=== PATIENT | male | born 1955 | race Caucasian/White ===

== ENCOUNTER 2016-09-17 07:21 | Emergency (ER) | payer MEDICARE, MEDICAID ==
--- NOTE | 2016-09-17 07:35 | ER Document Report ---
ED Respiratory Problem - General Mode of Arrival: Ambulatory Information source: Patient TRAVEL OUTSIDE OF THE [place] IN LAST 30 DAYS: No - HPI Patient complains to provider of: Cough Onset: Just prior to arrival Duration: Worse/persistent Quality of pain: No pain Severity: None Short of Breath: Mild Cough: Productive Associated symptoms: None - General Stated Complaint: SHORTNESS OF BREATH Notes: Patient is a 60 year old male that presents to the emergency department today with complaints of shortness of breath. Patient states he feels much better after the breathing treatment he received in [facility] and he is ready to go home. Patient states he intermittently has a cough and fever. (YANET GRANDA) - Related Data Allergies/Adverse Reactions: No Known Allergies Allergy (Verified 06/25/16 01:07) Past Medical History - General Information source: Patient, [facility] Records - Social History Smoking Status: Current Every Day Smoker Cigarette use (# per day): Yes Frequency of alcohol use: None Drug Abuse: None Lives with: Family Family History: Reviewed & Not Pertinent, Arthritis, CAD, COPD, Other - Past Medical History Cardiac Medical History: Reports: Hx Coronary Artery Disease, Hx Heart Attack - [place] occured in 2002. Takes ASA now, used to be on hypertensive medications, Hx Hypercholesterolemia, Hx Hypertension Pulmonary Medical History: Reports: Hx Asthma, Hx Bronchitis, Hx COPD, Hx Pneumonia Musculoskeltal Medical History: Reports Hx Arthritis, Reports Hx Musculoskeletal Deformity, Reports Hx Musculoskeletal Trauma Psychiatric Medical History: Reports: Hx Depression Traumatic Medical History: Reports: Hx Fractures - Left rib fractures with pneumothorax requiring chest tube on 05/23/2016 Past Surgical History: Reports: Hx Cardiac Catheterization - Immunizations Immunizations up to date: Yes Hx Diphtheria, Pertussis, Tetanus Vaccination: Yes Hx Pneumococcal Vaccination: 02/22/13 Review of Systems - Review of Systems Constitutional: See HPI, Fever EENT: No symptoms reported Cardiovascular: denies: Chest pain Respiratory: See HPI, Cough, Short of breath Gastrointestinal: No symptoms reported Genitourinary: No symptoms reported Male Genitourinary: No symptoms reported Musculoskeletal: No symptoms reported Skin: No symptoms reported Hematologic/Lymphatic: No symptoms reported Neurological/Psychological: No symptoms reported -: Yes All other systems reviewed and negative Physical Exam - General General appearance: Appears well, Alert In distress: None - HEENT Head: Normocephalic, Atraumatic Eyes: Normal - Respiratory Respiratory status: No respiratory distress, Other - No conversational dyspnea Breath sounds: Wheezing - expiratory - Cardiovascular Rhythm: Regular Heart sounds: Normal auscultation - Extremities General upper extremity: Normal inspection, Nontender. No: Edema General lower extremity: Nontender, Edema - Neurological Neuro grossly intact: Yes Cognition: Normal Orientation: AAOx4 - Psychological Associated symptoms: Normal affect, Normal mood - Skin Skin Temperature: Warm Skin Moisture: Dry Skin Color: Normal Course - Re-evaluation Re-evalutation: 09/17/16 07:39 I personally performed the services described in the documentation, reviewed and edited the documentation which was dictated to my scribe in my presence, and it accurately records my words and actions. presents emergency from chief complaint increased cough wheezing patient has a long-standing history of COPD and is a tobacco abuser. He is not hypoxic on arrival we gave him a breathing treatment when he was trying to leave prior to being evaluated was able to convince him to stay and allow me to do a full medical assessment. His lungs are occasional expiratory wheeze is in no respiratory distress afebrile not hypoxic. No clinical concerns for NV PE or dissection. When ahead and wrote him a prescription for prednisone. Counseled him to stop smoking that's been a long-term habit. He is to follow-up with his primary care physician in 2-3 days and specifically discussed reasons for ED return sooner 09/17/16 07:40 (ENRIQUE GRAY) Scribe Documentation - Scribe Written by Fred:: Fred Mariano, [id number] 09/17/2016 acting as scribe for :: Dwayne
--- NOTE | 2016-09-28 10:41 | ER Document Report ---
Doctor's Note Notes: 09/28/16 10:41 diagnosis acute copd exacerbation
== END 2016-09-17 07:39 | disposition home or self-care (01) ==
LOC: ER 07:21
DX: J44.1 Chronic obstructive pulmonary disease with (acute) exacerbation (principal); F17.210 Nicotine dependence, cigarettes, uncomplicated; I25.10 Atherosclerotic heart disease of native coronary artery without angina pectoris; I25.2 Old myocardial infarction; Z79.82 Long term (current) use of aspirin
CPT/HCPCS: 99284

== ENCOUNTER 2016-09-20 04:16 | Emergency (ER) | payer MEDICARE, MEDICAID ==
[2016-09-20 04:38] VITALS: BP 153/80
== END 2016-09-20 05:30 | disposition left against medical advice (07) ==
LOC: ER 04:16
DX: Z53.9 Procedure and treatment not carried out, unspecified reason (principal); R06.02 Shortness of breath
CPT/HCPCS: 36415; 80053; 82550; 82553; 84484; 85025; 85610; 94640; 99283; 99284

== ENCOUNTER 2016-09-20 05:03 | Emergency (ER) | payer MEDICARE, MEDICAID ==
[2016-09-20 07:05] VITALS: BP 145/74
[2016-09-20] MEDS ORDERED: IPRATROPIUM/ALBUTEROL 0.5-2.5 MG/3 ML AMPUL NEB ONE (07:21)
[2016-09-20 07:58] LABS: ALANINE AMINOTRANSFERASE 51 U/L (21-72); ALBUMIN 4.4 g/dL (3.5-5.0); ALKALINE PHOSPHATASE 104 U/L (38-126); ANION GAP 13 (5-19); ASPARTATE AMINO TRANSFERASE 68 U/L (17-59); BILIRUBIN,TOTAL 0.5 mg/dL (0.2-1.3); BLOOD UREA NITROGEN 6 mg/dL (7-20); CALCIUM 8.3 mg/dL (8.4-10.2); CARBON DIOXIDE 28 mmol/L (22-30); CHLORIDE 90 mmol/L (98-107); CREATINE KINASE 312 U/L (55-170); CREATININE RESULT 0.48 mg/dL (0.52-1.25); GLUCOSE 79 mg/dL (75-110); POTASSIUM 4.5 mmol/L (3.6-5.0); SODIUM 130.7 mmol/L (137-145); TOTAL PROTEIN 7.1 g/dL (6.3-8.2)
[2016-09-20 08:00] LABS: ABSOLUTE LYMPHOCYTES (AUTO) 0.4 10^3/uL (0.5-4.7); ABSOLUTE MONOCYTES (AUTO) 0.2 10^3/uL (0.1-1.4); ABSOLUTE NEUT (AUTO) 7.2 10^3/uL (1.7-8.2); BASOPHILS % (AUTO) 0.6 % (0-2); EOSINOPHILS % (AUTO) 0.1 % (0-6); HEMATOCRIT 39.5 % (37.9-51.0); HEMOGLOBIN 13.5 g/dL (13.5-17.0); LYMPHOCYTES % (AUTO) 5.4 % (13-45); MEAN CORPUSCULAR HEMOGLOBIN 30.3 pg (27.0-33.4); MEAN CORPUSCULAR HGB CONC 34.2 g/dL (32.0-36.0); MEAN CORPUSCULAR VOLUME 88 fl (80-97); MONOCYTES % (AUTO) 2.1 % (3-13); RED BLOOD COUNT 4.47 10^6/uL (4.35-5.55); RED CELL DISTRIBUTION WIDTH 16.5 % (11.5-14.0); SEGMENTED NEUTROPHILS % (AUTO) 91.8 % (42-78); WHITE BLOOD COUNT 7.8 10^3/uL (4.0-10.5)
[2016-09-20 08:11] LABS: CREATINE KINASE MB 10.8 ng/mL (<4.55); TROPONIN I 0.015 ng/mL
--- NOTE | 2016-09-20 15:31 | ER Document Report ---
ED General - General Chief Complaint: Chest Pain Stated Complaint: CHEST PAIN TRAVEL OUTSIDE OF THE [place] IN LAST 30 DAYS: No - HPI Patient complains to provider of: shortness of breath chest pain Onset: Yesterday Onset/Duration: Gradual Notes: Patient was seen earlier tonight left AGAINST MEDICAL ADVICE to smoke a cigarette been rechecked into the ER stating that he was having chest pain shortness of breath. Upon my entrance into the examination room patient is resting currently. Patient is requesting a DuoNeb treatment. Otherwise patient states that he is no longer having any further chest pain denies fevers chills nausea vomiting. Upon further questioning asked if he would like to be treated with blood work breathing treatments and chest x-ray. Patient states that he would not sign out AGAINST MEDICAL ADVICE this time. Explained to the patient that if he does a sign out AGAINST MEDICAL ADVICE that this could result in certain disability with out a complete workup to rule out pneumonia myocardial infarction etc. - Related Data Allergies/Adverse Reactions: No Known Allergies Allergy (Verified 06/25/16 01:07) Past Medical History - Social History Smoking Status: Current Every Day Smoker Chew tobacco use (# tins/day): No Frequency of alcohol use: Heavy Drug Abuse: None Family History: Reviewed & Not Pertinent, Arthritis, CAD, COPD, Other Patient has suicidal ideation: No Patient has homicidal ideation: No - Past Medical History Cardiac Medical History: Reports: Hx Coronary Artery Disease, Hx Heart Attack - [place] occured in 2002. Takes ASA now, used to be on hypertensive medications, Hx Hypercholesterolemia, Hx Hypertension Pulmonary Medical History: Reports: Hx Asthma, Hx Bronchitis, Hx COPD, Hx Pneumonia Musculoskeltal Medical History: Reports Hx Arthritis, Reports Hx Musculoskeletal Deformity, Reports Hx Musculoskeletal Trauma Psychiatric Medical History: Reports: Hx Depression Traumatic Medical History: Reports: Hx Fractures - Left rib fractures with pneumothorax requiring chest tube on 05/23/2016 Past Surgical History: Reports: Hx Cardiac Catheterization - Immunizations Immunizations up to date: Yes Hx Diphtheria, Pertussis, Tetanus Vaccination: Yes Hx Pneumococcal Vaccination: 02/22/13 Review of Systems - Review of Systems Constitutional: No symptoms reported EENT: No symptoms reported Cardiovascular: Chest pain Respiratory: Short of breath Gastrointestinal: No symptoms reported Genitourinary: No symptoms reported Male Genitourinary: No symptoms reported Musculoskeletal: No symptoms reported Skin: No symptoms reported Hematologic/Lymphatic: No symptoms reported Neurological/Psychological: No symptoms reported -: Yes All other systems reviewed and negative Physical Exam - Vital signs Vitals: Temp Pulse Resp BP Pulse Ox 97.3 F 89 26 H 145/74 H 91 L 09/20/16 05:15 09/20/16 05:15 09/20/16 05:15 09/20/16 05:15 09/20/16 05:15 Interpretation: Normal - General General appearance: Appears well, Alert - HEENT Head: Normocephalic, Atraumatic Eyes: Normal Pupils: PERRL - Respiratory Respiratory status: No respiratory distress Chest status: Nontender Breath sounds: Rhonchi Chest palpation: Normal - Cardiovascular Rhythm: Regular Heart sounds: Normal auscultation Murmur: No - Abdominal Inspection: Normal Distension: No distension Bowel sounds: Normal Tenderness: Nontender Organomegaly: No organomegaly - Back Back: Normal, Nontender - Extremities General upper extremity: Normal inspection, Nontender, Normal color, Normal ROM , Normal temperature General lower extremity: Normal inspection, Nontender, Normal color, Normal ROM , Normal temperature, Normal weight bearing. No: Sylvia's sign - Neurological Neuro grossly intact: Yes Cognition: Normal Orientation: AAOx4 [place] Coma Scale Eye Opening: Spontaneous [place] Coma Scale Verbal: Oriented [place] Coma Scale Motor: Obeys Commands [place] Coma Scale Total: 15 Speech: Normal Motor strength normal: LUE, RUE, LLE, RLE Sensory: Normal - Psychological Associated symptoms: Normal affect, Normal mood - Skin Skin Temperature: Warm Skin Moisture: Dry Skin Color: Normal Course - Re-evaluation Re-evalutation: 09/20/16 15:30 After walking of the patient's examination room notified by nursing staff shortly after that the patient now like to sign out AGAINST MEDICAL ADVICE. Patient comply with AMA form. Lab work had been drawn already reviewed lab work does show negative troponin. - Vital Signs Vital signs: Temp Pulse Resp BP Pulse Ox 97.3 F 89 15 150/79 H 93 09/20/16 05:15 09/20/16 05:15 09/20/16 07:01 09/20/16 07:00 09/20/16 07:01 - Laboratory Result Diagrams: 09/20/16 06:52 09/20/16 06:52 Laboratory results interpreted by me: 09/20/16 09/20/16 09/20/16 06:52 06:52 06:52 RDW 16.5 H Plt Count 143 L Seg Neutrophils % 91.8 H Lymphocytes % 5.4 L Monocytes % 2.1 L Absolute Lymphocytes 0.4 L Sodium 130.7 L Chloride 90 L BUN 6 L Creatinine 0.48 L Calcium 8.3 L AST 68 H Creatine Kinase 312 H CK-MB (CK-2) 10.80 H Discharge - Discharge Clinical Impression: Shortness of breath, Chest pain Condition: Fair Disposition: AGAINST MEDICAL ADVICE Referrals: EPHRAIM MADSEN MD [Primary Care Provider] - Follow up as needed
== END 2016-09-20 07:30 | disposition left against medical advice (07) ==
LOC: ER 05:03
DX: Z53.9 Procedure and treatment not carried out, unspecified reason (principal); R06.02 Shortness of breath; R07.9 Chest pain, unspecified; F17.210 Nicotine dependence, cigarettes, uncomplicated
CPT/HCPCS: 36415; 80053; 82550; 82553; 84484; 85025; 85610; 94640; 99283

== ENCOUNTER 2016-09-22 14:54 | Inpatient (IN) | payer MEDICARE, MEDICAID ==
[2016-09-22] MEDS ORDERED: IPRATROPIUM/ALBUTEROL 0.5-2.5 MG/3 ML AMPUL NEB ONE (14:59)
--- NOTE | 2016-09-22 15:06 | ER Document Report ---
ED Respiratory Problem - General Chief Complaint: Shortness Of Breath Stated Complaint: WEAKNESS Notes: The patient is a 60-year-old male, past medical history COPD, chronic alcoholism , presents by EMS with 3 days of cough, shortness of breath and wheezing. He was given 2 albuterol treatments and 125 mg IV Solumedrol by EMS. Patient's last drink was 8 hours ago and he is feeling shaky. He is also having visual hallucinations. He denies any chest pain, leg swelling, fevers, nausea, vomiting , rash, recent travel or abdominal pain. TRAVEL OUTSIDE OF THE [place] IN LAST 30 DAYS: No - Related Data Allergies/Adverse Reactions: No Known Allergies Allergy (Verified 06/25/16 01:07) Past Medical History - General Information source: Patient, Emergency Med Personnel - Social History Smoking Status: Current Every Day Smoker Smoking Education Provided: Yes - Patient counseled about smoking cessation for 5 minutes. Family History: Reviewed & Not Pertinent, Arthritis, CAD, COPD, Other - Past Medical History Cardiac Medical History: Reports: Hx Coronary Artery Disease, Hx Heart Attack - [place] occured in 2002. Takes ASA now, used to be on hypertensive medications, Hx Hypercholesterolemia, Hx Hypertension Pulmonary Medical History: Reports: Hx Asthma, Hx Bronchitis, Hx COPD, Hx Pneumonia Musculoskeltal Medical History: Reports Hx Arthritis, Reports Hx Musculoskeletal Deformity, Reports Hx Musculoskeletal Trauma Psychiatric Medical History: Reports: Hx Depression Traumatic Medical History: Reports: Hx Fractures - Left rib fractures with pneumothorax requiring chest tube on 05/23/2016 Past Surgical History: Reports: Hx Cardiac Catheterization - Immunizations Immunizations up to date: Yes Hx Diphtheria, Pertussis, Tetanus Vaccination: Yes Hx Pneumococcal Vaccination: 02/22/13 Review of Systems - Review of Systems Notes: REVIEW OF SYSTEMS: CONSTITUTIONAL: -fevers, -chills EENT: Denies eye, ear, throat, or mouth pain or symptoms. Denies nasal or sinus congestion. CARDIOVASCULAR: Denies chest pain, syncope. RESPIRATORY: +cough and chest congestion. +shortness of breath, wheezing. GASTROINTESTINAL: Denies abdominal pain. Denies nausea, vomiting, or diarrhea. Denies constipation. GENITOURINARY: Denies difficulty urinating, painful urination, burning, frequency, or blood in urine. MUSCULOSKELETAL: Denies neck or back pain or joint pain or swelling. SKIN: Denies rash or skin lesions. HEMATOLOGIC: Denies easy bruising or bleeding. LYMPHATIC: Denies swollen, enlarged glands. NEUROLOGICAL: +Tremulousness, Denies altered mental status or loss of consciousness. Denies headache. Denies weakness or paralysis or loss of use of either side. Denies problems with gait or speech. Denies sensory or motor loss. PSYCHIATRIC: +Visual hallucinations. Denies anxiety or stress or depression. ALL OTHER SYSTEMS REVIEWED AND NEGATIVE. Physical Exam - Vital signs Vitals: Temp Pulse Resp BP Pulse Ox 98.6 F 80 16 176/87 H 100 09/22/16 14:55 09/22/16 14:55 09/22/16 14:55 09/22/16 14:55 09/22/16 14:55 - Notes Notes: PHYSICAL EXAMINATION: GENERAL: Ill-appearing, poorly nourished HEAD: Atraumatic, normocephalic. EYES: Pupils equal round and reactive to light, extraocular movements intact, sclera anicteric, conjunctiva are normal. ENT: nares patent, oropharynx clear without exudates. Moist mucous membranes. NECK: Normal range of motion, supple without lymphadenopathy LUNGS: Mild wheezing diffusely. Tachypnea. HEART: Regular rate and rhythm without murmurs ABDOMEN: Soft, nontender, normoactive bowel sounds. No guarding, no rebound. No masses appreciated. EXTREMITIES: Normal range of motion, no pitting or edema. No cyanosis. NEUROLOGICAL: Cranial nerves grossly intact. Normal speech, normal gait. Normal sensory, motor, and reflex exams. Tremor in B/L arms. PSYCH: Normal mood, normal affect. SKIN: Warm, Dry, normal turgor, no rashes or lesions noted. Course - Re-evaluation Re-evalutation: 09/22/16 15:54 After duonebs and steroids, patient still feeling short of breath. Pulse ox on room air is 83%, which improves to 91% on 2 L nasal cannula. Patient does not wear home oxygen. No pneumonia on chest x-ray. Will admit as an inpatient for further evaluation and treatment of his hypoxia and COPD exacerbation. 09/22/16 16:20 Pt's last alcoholic drink was 8 hours ago. He has gone through withdrawal in the past, including seizures. CIWA score at this time is 8. Will provide Ativan and continue to monitor for withdrawal symptoms. 09/22/16 16:55 labs unremarkable other than slight hyponatremia. No seizing at this time. Spoke to Dr. Balderas and he has accepted patient as inpatient. - Vital Signs Vital signs: Temp Pulse Resp BP Pulse Ox 98.6 F 80 16 130/70 H 90 L 09/22/16 14:55 09/22/16 14:55 09/22/16 16:01 09/22/16 16:01 09/22/16 16:01 - Laboratory Result Diagrams: 09/22/16 16:06 09/22/16 16:06 Laboratory results interpreted by me: 09/22/16 09/22/16 16:06 16:06 Hgb 13.4 L RDW 16.2 H Plt Count 132 L Seg Neutrophils % 79.5 H Lymphocytes % 9.3 L Sodium 127.1 L Chloride 86 L Carbon Dioxide 33 H BUN 6 L AST 107 H ALT 89 H - Diagnostic Test Radiology reviewed: Image reviewed Radiology results interpreted by me: NAD - EKG Interpretation by Me EKG shows normal: Sinus rhythm, [place], Intervals, QRS Complexes, ST-T Waves Discharge - Discharge Clinical Impression: COPD exacerbation, Hypoxia, Hyponatremia Alcohol withdrawal Qualifiers: Complication of substance-induced condition: with perceptual disturbance Qualified Code(s): F10.232 - Alcohol dependence with withdrawal with perceptual disturbance Condition: Fair Disposition: ADMITTED INPATIENT Unit Admitted: Telemetry
[2016-09-22] MEDS ORDERED: LORAZEPAM INJ 2 MG/1 ML VIAL IV ONE (16:14)
[2016-09-22 16:26] LABS: ABSOLUTE LYMPHOCYTES (AUTO) 0.8 10^3/uL (0.5-4.7); ABSOLUTE MONOCYTES (AUTO) 0.9 10^3/uL (0.1-1.4); ABSOLUTE NEUT (AUTO) 6.4 10^3/uL (1.7-8.2); BASOPHILS % (AUTO) 0.5 % (0-2); EOSINOPHILS % (AUTO) 0.1 % (0-6); HEMATOCRIT 40.4 % (37.9-51.0); HEMOGLOBIN 13.4 g/dL (13.5-17.0); HGB HCT DIFFERENCE -0.2; LYMPHOCYTES % (AUTO) 9.3 % (13-45); MEAN CORPUSCULAR HEMOGLOBIN 29.6 pg (27.0-33.4); MEAN CORPUSCULAR HGB CONC 33.1 g/dL (32.0-36.0); MEAN CORPUSCULAR VOLUME 89 fl (80-97); MONOCYTES % (AUTO) 10.6 % (3-13); RED BLOOD COUNT 4.52 10^6/uL (4.35-5.55); RED CELL DISTRIBUTION WIDTH 16.2 % (11.5-14.0); SEGMENTED NEUTROPHILS % (AUTO) 79.5 % (42-78); WHITE BLOOD COUNT 8.1 10^3/uL (4.0-10.5)
[2016-09-22 16:37] LABS: ALANINE AMINOTRANSFERASE 89 U/L (21-72); ALBUMIN 4.1 g/dL (3.5-5.0); ALKALINE PHOSPHATASE 94 U/L (38-126); ANION GAP 8 (5-19); ASPARTATE AMINO TRANSFERASE 107 U/L (17-59); BILIRUBIN,TOTAL 0.6 mg/dL (0.2-1.3); BLOOD UREA NITROGEN 6 mg/dL (7-20); CALCIUM 8.6 mg/dL (8.4-10.2); CARBON DIOXIDE 33 mmol/L (22-30); CHLORIDE 86 mmol/L (98-107); CREATINE KINASE 147 U/L (55-170); CREATININE RESULT 0.52 mg/dL (0.52-1.25); GLUCOSE 82 mg/dL (75-110); LIPASE 70.7 U/L (23-300); POTASSIUM 3.8 mmol/L (3.6-5.0); SODIUM 127.1 mmol/L (137-145); TOTAL PROTEIN 6.8 g/dL (6.3-8.2)
[2016-09-22] MEDS ORDERED: ACETAMINOPHEN 325 MG TABLET PO PRN (17:31)
[2016-09-22] MEDS ORDERED: NORMAL SALINE 1000 ML 1,000 ML IV PRN (17:31)
[2016-09-22] MEDS ORDERED: LORAZEPAM 1 MG TABLET PO PRN (17:37)
--- NOTE | 2016-09-22 17:47 | PDOC H&P ---
History of Present Illness Admission Date/PCP: 09/22/16 16:19 LESLY BRYAN MD Patient complains of: Shortness of breath History of Present Illness: LEIF NUÑEZ is a 60 year old male who was seen in the emergency room for a COPD exacerbation. He also has a long history of alcohol abuse was given Ativan 2 mg prior to my interview. He was unable to answer questions appropriately is is very sedated. The history and physical comes from the medical record as well as from the emergency physician. He has a history of COPD and alcohol abuse as well as smoking. He presented with shortness of breath. It's unclear as to whether or not he has had any fevers or chills. Past Medical History Cardiac Medical History: Reports: Coronary Artery Disease, Myocardial Infarction - [place] occured in 2002. Takes ASA now, used to be on hypertensive medications, Hyperlipidema, Hypertension Pulmonary Medical History: Reports: Asthma, Bronchitis, Chronic Obstructive Pulmonary Disease (COPD), Pneumonia Neurological Medical History: Reports: None Endocrine Medical History: Reports: None Renal/ Medical History: Reports: None Malignancy Medical History: Reports: None GI Medical History: Reports: None Musculoskeltal Medical History: Reports: Arthritis Skin Medical History: Reports: None Psychiatric Medical History: Reports: Depression, Substance Abuse, Tobacco Dependency Traumatic Medical History: Reports: None Hematology: Reports: None Infectious Medical History: Reports: None Past Surgical History Past Surgical History: Reports: Cardiac Catheterization Social History Information Source: Emergency Med Personnel, [facility] Records Lives with: Other - Unknown Smoking Status: Current Every Day Smoker Frequency of Alcohol Use: Heavy Hx Recreational Drug Use: No Hx Prescription Drug Abuse: No - Advance Directive Resuscitation Status: Full Code Family History Family History: Arthritis, CAD, COPD, Other Family History: Patient was unable to give any history. Parental Family History Reviewed: Yes Children Family History Reviewed: No Sibling(s) Family History Reviewed.: No Medication/Allergy Home Medications: Albuterol Sulfate [Ventolin Hfa] 2 puff IH Q4HP PRN #17 gm 05/11/16 Budesonide/Formoterol Fumarate [Symbicort Hfa 160-4.5 Mcg Inhaler 6 gm] 1 puff IH Q12 06/02/16 Clopidogrel Bisulfate [Plavix 75 mg Tablet] 75 mg PO DAILY 06/02/16 Docusate Sodium [Doc-Q-Lace] 100 mg PO DAILY 06/02/16 Ferrous Sulfate [Iron] 325 mg PO DAILY 06/02/16 Levothyroxine Sodium [Synthroid 0.075 mg Tablet] 0.075 mg PO DAILY 06/02/16 Lisinopril [Prinivil] 20 mg PO DAILY 06/02/16 Oxycodone HCl 5 - 10 mg PO Q4H PRN 06/02/16 Tiotropium [place] [Spiriva Respimat] 1 inh IH DAILY 06/02/16 Albuterol Sulfate [Proair HFA Inhalation Aerosol 8.5 gm MDI] 2 puff IH Q4H PRN # 1 mdi 06/25/16 Prednisone [Deltasone 20 mg Tablet] 3 tab PO DAILY 4 Days 06/25/16 Prednisone [Deltasone 20 mg Tablet] 3 tab PO DAILY 5 Days 08/15/16 Prednisone [Deltasone 20 mg Tablet] 3 tab PO DAILY 5 Days 09/17/16 Albuterol Sulfate [Proair HFA Inhalation Aerosol 8.5 gm MDI] 2 puff IH Q4H PRN # 1 mdi 09/22/16 Prednisone [Deltasone 20 mg Tablet] 3 tab PO DAILY 5 Days 09/22/16 Allergies/Adverse Reactions: No Known Allergies Allergy (Verified 06/25/16 01:07) Review of Systems ROS unobtainable: Due to mental status Physical Exam Vital Signs: Temp Pulse Resp BP Pulse Ox 98.6 F 80 16 130/70 H 90 L 09/22/16 14:55 09/22/16 14:55 09/22/16 16:01 09/22/16 16:01 09/22/16 16:01 General appearance: PRESENT: mild distress Head exam: PRESENT: atraumatic, normocephalic Eye exam: PRESENT: conjunctiva pink. ABSENT: scleral icterus Ear exam: PRESENT: normal external ear exam Mouth exam: PRESENT: moist, tongue midline Neck exam: ABSENT: carotid bruit, JVD, lymphadenopathy, thyromegaly Respiratory exam: PRESENT: wheezes - Bilateral expiratory wheezes. Cardiovascular exam: PRESENT: RRR. ABSENT: diastolic murmur, rubs, systolic murmur Vascular exam: PRESENT: normal capillary refill GI/Abdominal exam: PRESENT: normal bowel sounds, soft. ABSENT: distended, guarding, mass, organolmegaly, rebound, tenderness Rectal exam: PRESENT: deferred Extremities exam: ABSENT: calf tenderness, clubbing, pedal edema Neurological exam: PRESENT: altered, other - Patient will arouse to painful stimuli but is unable to stay awake. He just received Ativan the time my exam. Psychiatric exam: PRESENT: other - Sedated Skin exam: PRESENT: dry, intact, warm. ABSENT: cyanosis, rash Results Impressions: Chest X-Ray 09/22/16 14:59 IMPRESSION: COPD. NO ACUTE RADIOGRAPHIC FINDING IN THE CHEST. Assessment & Plan - Diagnosis (1) Acute and chronic respiratory failure with hypoxia Is this a current diagnosis for this admission?: YesPlan: Patient has an acute COPD exacerbation. Patient will be treated with IV steroids, nebulizers, oxygen and antibiotics in the form of Rocephin and Zithromax. (2) COPD exacerbation Is this a current diagnosis for this admission?: YesPlan: The patient will be given IV steroids, nebulizers, oxygen, antibiotics. (3) Hyponatremia Is this a current diagnosis for this admission?: YesPlan: Most likely secondary to alcohol abuse (4) Coronary atherosclerosis Is this a current diagnosis for this admission?: YesPlan: The patient will continue with his outpatient medications and he is awake enough to take them. (5) Anemia Is this a current diagnosis for this admission?: YesPlan: No evidence for acute blood loss. (6) Alcohol withdrawal Qualifiers: Complication of substance-induced condition: uncomplicated Qualified Code(s): F10.230 - Alcohol dependence with withdrawal, uncomplicated Is this a current diagnosis for this admission?: YesPlan: Patient will be given Ativan as needed. - Time Time Spent: 30 to 50 Minutes - Inpatient Certification Medical Necessity: Need Close Monitoring Due to Risk of Patient Decompensation, Need for Nebulizer Therapy and Monitoring of Response
[2016-09-22 19:44] LABS: ARTERIAL BLOOD BASE EXCESS 5.1 mmol/L
[2016-09-22] MEDS: METHYLPREDNISOLONE INJ 40 MG/1 ML SDV IV SCH (22:01)
[2016-09-23] MEDS: IPRATROPIUM/ALBUTEROL 0.5-2.5 MG/3 ML AMPUL NEB PRN ×2 (01:52→08:14)
[2016-09-23 03:39] VITALS: BP 103/56
[2016-09-23 06:35] LABS: HEMATOCRIT 34.8 % (37.9-51.0); HEMOGLOBIN 11.6 g/dL (13.5-17.0); MEAN CORPUSCULAR HEMOGLOBIN 29.9 pg (27.0-33.4); MEAN CORPUSCULAR HGB CONC 33.4 g/dL (32.0-36.0); MEAN CORPUSCULAR VOLUME 90 fl (80-97); RED BLOOD COUNT 3.89 10^6/uL (4.35-5.55); RED CELL DISTRIBUTION WIDTH 16.6 % (11.5-14.0); WHITE BLOOD COUNT 3.8 10^3/uL (4.0-10.5)
[2016-09-23 06:56] LABS: ANION GAP 5 (5-19); BLOOD UREA NITROGEN 10 mg/dL (7-20); CALCIUM 8.4 mg/dL (8.4-10.2); CARBON DIOXIDE 31 mmol/L (22-30); CHLORIDE 94 mmol/L (98-107); CREATININE RESULT 0.53 mg/dL (0.52-1.25); GLUCOSE 112 mg/dL (75-110); POTASSIUM 4.5 mmol/L (3.6-5.0); SODIUM 130.4 mmol/L (137-145)
[2016-09-23] MEDS ORDERED: (PENDING PHARMACY ID) (Oxycodone Hcl/Acetaminophen [Percocet 7.5-325 Mg Tablet] 1 TAB) PO PRN (07:32)
[2016-09-23] MEDS ORDERED: LORAZEPAM 1 MG TABLET PO PRN ×2 (07:35→10:46)
[2016-09-23] MEDS ORDERED: ENOXAPARIN SODIUM INJ 40 MG/0.4 ML DISP.SYRIN SUBCUT SCH (08:00)
--- NOTE | 2016-09-23 08:25 | EKG REPORT ---
SEVERITY:- ABNORMAL ECG - SINUS RHYTHM PROBABLE LEFT VENTRICULAR HYPERTROPHY BORDERLINE INFERIOR Q WAVES : Confirmed by: Renee Gill 23-Sep-2016 08:24:55
[2016-09-23] MEDS ORDERED: OXYCODONE-ACETAMINOPHEN 5-325 MG TABLET PO PRN (08:57)
[2016-09-23] MEDS ORDERED: OXYCODONE HCL IR 5 MG TABLET PO PRN (08:58)
[2016-09-23] MEDS: METHYLPREDNISOLONE INJ 40 MG/1 ML SDV IV SCH (09:04)
[2016-09-23] MEDS ORDERED: AZITHROMYCIN 500 MG in DEXTROSE 5%-WATER 250 ML IV SCH (10:00)
[2016-09-23] MEDS ORDERED: FERROUS SULFATE 325 MG TABLET PO SCH ×2 (10:00)
[2016-09-23] MEDS ORDERED: NICOTINE 14 MG/24 HR PATCH.TD24 TD SCH (10:00)
[2016-09-23] MEDS ORDERED: LEVOTHYROXINE SODIUM 0.075 MG TABLET PO SCH (10:00)
[2016-09-23] MEDS ORDERED: CEFTRIAXONE 1 GM/D5W RTU 50 ML IV SCH (10:00)
[2016-09-23] MEDS ORDERED: (PENDING PHARMACY ID) (Lisinopril [Prinivil] 20 MG) PO SCH (10:00)
[2016-09-23] MEDS ORDERED: TIOTROPIUM BROMIDE IH SCH (10:00)
[2016-09-23] MEDS ORDERED: CLOPIDOGREL BISULFATE 75 MG TABLET PO SCH (10:00)
[2016-09-23] MEDS ORDERED: LISINOPRIL 10 MG TABLET PO SCH (10:00)
[2016-09-23] MEDS ORDERED: BUDESONIDE/FORMOTEROL 160-4.5 MCG 60 PUFF/6 GM MDI IH SCH (10:00)
[2016-09-23] MEDS ORDERED: CALCIUM CARBONATE 500 MG TABLET PO SCH (10:00)
[2016-09-23] MEDS ORDERED: ROSUVASTATIN CALCIUM PO SCH (10:00)
--- NOTE | 2016-09-23 11:12 | PDOC PROGRESS REPORT ---
Subjective Progress Note for:: 09/23/16 Subjective:: Complains of a nonproductive cough as well as shortness of breath at rest. He denies any chest pain. Physical Exam Vital Signs: Temp Pulse Resp BP Pulse Ox 97.3 F 91 18 103/56 L 85 L 09/23/16 03:38 09/23/16 08:14 09/23/16 08:14 09/23/16 03:38 09/23/16 08:14 Intake & Output 09/22/16 09/23/16 09/24/16 06:59 06:59 06:59 Intake Total 1350 Output Total 225 Balance 1125 Weight 59.6 kg General appearance: PRESENT: no acute distress Eye exam: PRESENT: conjunctiva pink Mouth exam: PRESENT: moist, tongue midline Neck exam: ABSENT: JVD Respiratory exam: PRESENT: wheezes - Expiratory wheezes bilaterally. Cardiovascular exam: PRESENT: RRR. ABSENT: diastolic murmur, rubs, systolic murmur GI/Abdominal exam: PRESENT: normal bowel sounds, soft. ABSENT: distended, guarding, mass, organolmegaly, rebound, tenderness Extremities exam: ABSENT: calf tenderness, clubbing, pedal edema Neurological exam: PRESENT: other - Patient is alert and oriented today. Psychiatric exam: PRESENT: anxious Skin exam: PRESENT: dry, intact, warm. ABSENT: cyanosis, rash Results Laboratory Results: 09/23/16 06:05 09/23/16 06:05 09/22/16 09/23/16 09/23/16 19:35 06:05 06:05 WBC 3.8 L RBC 3.89 L Hgb 11.6 L Hct 34.8 L MCV 90 MCH 29.9 MCHC 33.4 RDW 16.6 H Plt Count 132 L Carbonic Acid 1.39 H HCO3/H2CO3 Ratio 21:1 ABG pH 7.43 ABG pCO2 46.3 H ABG pO2 73.1 L ABG HCO3 30.2 H ABG O2 Saturation 95.0 ABG Base Excess 5.1 FiO2 2L Sodium 130.4 L Potassium 4.5 Chloride 94 L Carbon Dioxide 31 H Anion Gap 5 BUN 10 Creatinine 0.53 Est GFR ( Amer) > 60 Est GFR (Non-Af Amer) > 60 Glucose 112 H Calcium 8.4 Impressions: Chest X-Ray 09/22/16 14:59 IMPRESSION: COPD. NO ACUTE RADIOGRAPHIC FINDING IN THE CHEST. Assessment & Plan - Diagnosis (1) Acute and chronic respiratory failure with hypoxia Is this a current diagnosis for this admission?: YesPlan: Patient has an acute COPD exacerbation. Patient will be treated with IV steroids, nebulizers, oxygen and antibiotics in the form of Rocephin and Zithromax. (2) COPD exacerbation Is this a current diagnosis for this admission?: YesPlan: The patient will be given IV steroids, nebulizers, oxygen, antibiotics. (3) Hyponatremia Is this a current diagnosis for this admission?: YesPlan: Most likely secondary to alcohol abuse (4) Coronary atherosclerosis Is this a current diagnosis for this admission?: YesPlan: The patient will continue with his outpatient medications and he is awake enough to take them. (5) Anemia Is this a current diagnosis for this admission?: YesPlan: No evidence for acute blood loss. (6) Alcohol withdrawal Qualifiers: Complication of substance-induced condition: uncomplicated Qualified Code(s): F10.230 - Alcohol dependence with withdrawal, uncomplicated Is this a current diagnosis for this admission?: YesPlan: Patient will be given Ativan as needed. Patient is slightly tremulous and we will increase his dose of Ativan. - Time Time Spent with patient: 25-34 minutes - Inpatient Certification Medical Necessity: Need Close Monitoring Due to Risk of Patient Decompensation, Need for Nebulizer Therapy and Monitoring of Response
--- NOTE | 2016-09-23 14:14 | PDOC DISCHARGE SUMMARY ---
General - Admit/Disc Date/PCP Admission Date/Primary Care Provider: 09/22/16 17:31 LESLY BRYAN MD Discharge Date: 09/23/16 - Discharge Diagnosis (1) Acute and chronic respiratory failure with hypoxia Is this a current diagnosis for this admission?: YesSummary: The patient left on 09/23/2016 AGAINST MEDICAL ADVICE. (2) COPD exacerbation Is this a current diagnosis for this admission?: Yes (3) Hyponatremia Is this a current diagnosis for this admission?: Yes (4) Coronary atherosclerosis Is this a current diagnosis for this admission?: Yes (5) Anemia Is this a current diagnosis for this admission?: Yes (6) Alcohol withdrawal Is this a current diagnosis for this admission?: YesSummary: The patient on the morning of September 2016 was alert and oriented 3 and was competent to make decisions. - Additional Information Resuscitation Status: Full Code Home Medications: Albuterol Sulfate [Ventolin Hfa] 2 puff IH Q4HP PRN #17 gm 05/11/16 Budesonide/Formoterol Fumarate [Symbicort Hfa 160-4.5 Mcg Inhaler 6 gm] 2 puff IH Q12 06/02/16 Clopidogrel Bisulfate [Plavix 75 mg Tablet] 75 mg PO DAILY 06/02/16 Levothyroxine Sodium [Synthroid 0.075 mg Tablet] 0.075 mg PO DAILY 06/02/16 Lisinopril [Prinivil] 20 mg PO DAILY 06/02/16 Tiotropium [place] [Spiriva Respimat] 2 inh IH DAILY 06/02/16 Albuterol Sulfate [Albuterol Sulfate 2.5mg/3 mL] 1 vial IH TID 09/23/16 Alprazolam [Xanax 0.5 mg Tablet] 1 tab PO QPM 09/23/16 Calcium Carbonate [Calcium] 500 mg PO BID 09/23/16 Ferrous Sulfate [Iron] 65 mg PO DAILY 09/23/16 Oxycodone HCl/Acetaminophen [Percocet 7.5-325 mg Tablet] 1 tab PO Q6H PRN Rosuvastatin Calcium [Crestor 20 mg Tablet] 1 tab PO DAILY 09/23/16 History of Present Illness History of Present Illness: LEIF NUÑEZ is a 60 year old male who was seen in the emergency room for a COPD exacerbation. He also has a long history of alcohol abuse was given Ativan 2 mg prior to my interview. He was unable to answer questions appropriately is is very sedated. The history and physical comes from the medical record as well as from the emergency physician. He has a history of COPD and alcohol abuse as well as smoking. He presented with shortness of breath. It's unclear as to whether or not he has had any fevers or chills. Hospital Course Hospital Course: 60-year-old gentleman with long history COPD who presented with a COPD exacerbation. Patient also has some evidence for alcohol withdrawal treated with Ativan. Patient was seen in the morning of 09/23/2016 and was crying shortness of breath but no longer had evidence for delirium tremens. Later in the day the patient decided to leave AGAINST MEDICAL ADVICE. Physical Exam Vital Signs: Temp Pulse Resp BP Pulse Ox 97.3 F 91 18 103/56 L 85 L 09/23/16 03:38 09/23/16 08:14 09/23/16 08:14 09/23/16 03:38 09/23/16 08:14 Intake & Output 09/22/16 09/23/16 09/24/16 06:59 06:59 06:59 Intake Total 1350 Output Total 225 Balance 1125 Weight 59.6 kg General appearance: PRESENT: no acute distress Eye exam: PRESENT: conjunctiva pink Mouth exam: PRESENT: moist, tongue midline Neck exam: ABSENT: JVD Respiratory exam: PRESENT: clear to auscultation trudy. ABSENT: rales, rhonchi, wheezes Cardiovascular exam: PRESENT: RRR. ABSENT: diastolic murmur, rubs, systolic murmur GI/Abdominal exam: PRESENT: normal bowel sounds, soft. ABSENT: distended, guarding, mass, organolmegaly, rebound, tenderness Extremities exam: ABSENT: calf tenderness, clubbing, pedal edema Neurological exam: PRESENT: alert, awake, oriented to person, oriented to place , oriented to time, oriented to situation Psychiatric exam: PRESENT: anxious Skin exam: PRESENT: dry, intact, warm. ABSENT: cyanosis, rash Results Laboratory Results: 09/23/16 06:05 09/23/16 06:05 09/22/16 09/23/16 09/23/16 19:35 06:05 06:05 WBC 3.8 L RBC 3.89 L Hgb 11.6 L Hct 34.8 L MCV 90 MCH 29.9 MCHC 33.4 RDW 16.6 H Plt Count 132 L Carbonic Acid 1.39 H HCO3/H2CO3 Ratio 21:1 ABG pH 7.43 ABG pCO2 46.3 H ABG pO2 73.1 L ABG HCO3 30.2 H ABG O2 Saturation 95.0 ABG Base Excess 5.1 FiO2 2L Sodium 130.4 L Potassium 4.5 Chloride 94 L Carbon Dioxide 31 H Anion Gap 5 BUN 10 Creatinine 0.53 Est GFR ( Amer) > 60 Est GFR (Non-Af Amer) > 60 Glucose 112 H Calcium 8.4 Impressions: Chest X-Ray 09/22/16 14:59 IMPRESSION: COPD. NO ACUTE RADIOGRAPHIC FINDING IN THE CHEST. Qualifiers PATEINT BEING DISCHARGED WITH ANY OF THE FOLLOWING DIAGNOSIS?: No Plan Discharge Plan: Patient left AGAINST MEDICAL ADVICE.
[2016-09-23] MEDS ORDERED: ATORVASTATIN CALCIUM 40 MG TABLET PO SCH (22:00)
[2016-09-23] MEDS ORDERED: ATORVASTATIN CALCIUM 80 MG TABLET PO SCH (22:00)
== END 2016-09-23 12:15 | disposition left against medical advice (07) | DRG 190 ==
LOC: ER 14:54 → EH 16:19 → UNDOADMIN 16:19 → EH 17:31 → 5 17:32
PROVIDERS: ADMIT Emergency Medicine; ATTEND Emergency Medicine
PROC: 5A09357 Assistance with Respiratory Ventilation, Less than 24 Consecutive Hours, Continuous Positive Airway Pressure (ICD-10-PCS; principal; 2016-09-22)
DX: J44.1 Chronic obstructive pulmonary disease with (acute) exacerbation (principal); J96.21 Acute and chronic respiratory failure with hypoxia; E87.1 Hypo-osmolality and hyponatremia; F10.239 Alcohol dependence with withdrawal, unspecified; I25.10 Atherosclerotic heart disease of native coronary artery without angina pectoris; D64.9 Anemia, unspecified; F17.210 Nicotine dependence, cigarettes, uncomplicated; I10 Essential (primary) hypertension; I25.2 Old myocardial infarction; J45.909 Unspecified asthma, uncomplicated; M19.90 Unspecified osteoarthritis, unspecified site; Z79.899 Other long term (current) drug therapy; Z79.51 Long term (current) use of inhaled steroids
CPT/HCPCS: 36415; 36600; 71020; 80048; 80053; 80076; 82550; 82553; 82803; 83690; 84484; 85025; 85027; 85610; 93005; 93010; 94640; 94660; 99285; J0456; J0696; J1650; J2060; J2920; J3490; J7030; J7060; J7620

== ENCOUNTER 2016-09-24 20:00 | Emergency (ER) | payer MEDICARE, MEDICAID ==
[2016-09-24] MEDS ORDERED: ALBUTEROL SULFATE 0.083% NEB 2.5 MG/3 ML AMPUL NEB ONE (20:44)
[2016-09-24] MEDS ORDERED: IPRATROPIUM/ALBUTEROL 0.5-2.5 MG/3 ML AMPUL NEB ONE ×2 (20:44→22:15)
[2016-09-24] MEDS ORDERED: PREDNISONE 20 MG TABLET PO ONE (20:45)
--- NOTE | 2016-09-24 20:46 | ER Document Report ---
ED Medical Screen (RME) - General Chief Complaint: Breathing Difficulty Stated Complaint: DIFFICULTY BREATHING Time seen by provider: 20:45 Mode of Arrival: Medic Information source: Patient Notes: 60-year-old male chronic COPD that continues to smoke called EMS due to shortness of breath. He left AMA yesterday. He is to Her respiratory rate of 30 with wheezing. Pulse ox is 95%. Chest pain. TRAVEL OUTSIDE OF THE [place] IN LAST 30 DAYS: No - Related Data Allergies/Adverse Reactions: No Known Allergies Allergy (Verified 09/22/16 21:03) Past Medical History - Past Medical History Cardiac Medical History: Reports: Hx Coronary Artery Disease, Hx Heart Attack - [place] occured in 2002. Takes ASA now, used to be on hypertensive medications, Hx Hypercholesterolemia, Hx Hypertension Pulmonary Medical History: Reports: Hx Asthma, Hx Bronchitis, Hx COPD, Hx Pneumonia Musculoskeltal Medical History: Reports Hx Arthritis, Reports Hx Musculoskeletal Deformity, Reports Hx Musculoskeletal Trauma Psychiatric Medical History: Reports: Hx Depression Traumatic Medical History: Reports: Hx Fractures - Left rib fractures with pneumothorax requiring chest tube on 05/23/2016 Past Surgical History: Reports: Hx Cardiac Catheterization - Immunizations Immunizations up to date: Yes Hx Diphtheria, Pertussis, Tetanus Vaccination: Yes
[2016-09-24 21:22] LABS: ABSOLUTE LYMPHOCYTES (AUTO) 0.8 10^3/uL (0.5-4.7); ABSOLUTE MONOCYTES (AUTO) 0.7 10^3/uL (0.1-1.4); ABSOLUTE NEUT (AUTO) 5.6 10^3/uL (1.7-8.2); BASOPHILS % (AUTO) 0.7 % (0-2); EOSINOPHILS % (AUTO) 0.2 % (0-6); HEMATOCRIT 38.4 % (37.9-51.0); HEMOGLOBIN 12.9 g/dL (13.5-17.0); HGB HCT DIFFERENCE 0.3; LYMPHOCYTES % (AUTO) 11.8 % (13-45); MEAN CORPUSCULAR HEMOGLOBIN 29.7 pg (27.0-33.4); MEAN CORPUSCULAR HGB CONC 33.6 g/dL (32.0-36.0); MEAN CORPUSCULAR VOLUME 89 fl (80-97); MONOCYTES % (AUTO) 9.6 % (3-13); RED BLOOD COUNT 4.34 10^6/uL (4.35-5.55); RED CELL DISTRIBUTION WIDTH 16.6 % (11.5-14.0); SEGMENTED NEUTROPHILS % (AUTO) 77.7 % (42-78); WHITE BLOOD COUNT 7.2 10^3/uL (4.0-10.5)
[2016-09-24 21:36] LABS: ALANINE AMINOTRANSFERASE 68 U/L (21-72); ALBUMIN 4.3 g/dL (3.5-5.0); ALKALINE PHOSPHATASE 80 U/L (38-126); ANION GAP 10 (5-19); ASPARTATE AMINO TRANSFERASE 54 U/L (17-59); BILIRUBIN,TOTAL 0.6 mg/dL (0.2-1.3); BLOOD UREA NITROGEN 6 mg/dL (7-20); CARBON DIOXIDE 28 mmol/L (22-30); CHLORIDE 92 mmol/L (98-107); CREATININE RESULT 0.49 mg/dL (0.52-1.25); GLUCOSE 88 mg/dL (75-110); POTASSIUM 4.3 mmol/L (3.6-5.0); SODIUM 130.4 mmol/L (137-145); TOTAL PROTEIN 6.8 g/dL (6.3-8.2)
[2016-09-24 21:37] LABS: ALCOHOL < 10 mg/dL (NONE DETECTED)
[2016-09-24] MEDS ORDERED: MAGNESIUM SULFATE/D5W 100 ML IV SCH (22:15)
--- NOTE | 2016-09-25 02:32 | ER Document Report ---
ED Respiratory Problem - General Chief Complaint: Breathing Difficulty Stated Complaint: DIFFICULTY BREATHING Time seen by provider: 02:30 Mode of Arrival: Medic Information source: Patient Notes: 60-year-old man with COPD who presents with shortness of breath. He denies fever. TRAVEL OUTSIDE OF THE [place] IN LAST 30 DAYS: No - HPI Patient complains to provider of: COPD Onset: Just prior to arrival Duration: Continuous Initiating Event: No: Allergy, Aspiration/Choking, Exertion, Exposure to chemicals, Exposure to dust, Exposure to fumes, Exposure to mold, Exposure to smoke, Out of meds, Sports/exercise, URI, Other Quality of pain: No pain Severity: None Pain Level: Denies Context: Hx COPD Chest pain/discomfort: denies: Center, Constant, Heaviness, Intermittent, Left, Pain, Radiates to arm, Radiates to back, Radiates to jaw, Right, Tightness, Worse with deep breaths Cough: Nonproductive Sputum amount: denies: None, Scant, Small, Moderate, Large, Copious Sputum color: denies: Brown, Clear, Creamy, [place], Green, [place] tinged, Red (blood ), Red Specks, Rust, Small Clots, [place], White, Yellow Sputum consistency: denies: Frothy, Mucoid, Mucoid Plug, Tenacious, Thick, Thin At home treatment: denies: Bronchodilators, CPAP, Diuretics, Inhaled steroids, Oral steroids, Oxygen, Singulair, Theophylline EMS treatments: No: Bronchodilators, CPAP, Diuretics, Epinephrine, Nitrates, Oxygen, Solumedrol Associated symptoms: Cough, Short of breath Similar symptoms previously: Yes Recently seen / treated by doctor: Yes - Related Data Allergies/Adverse Reactions: No Known Allergies Allergy (Verified 09/22/16 21:03) Past Medical History - General Information source: Patient - Social History Smoking Status: Current Every Day Smoker Cigarette use (# per day): Yes - 1 pack per day Chew tobacco use (# tins/day): No Frequency of alcohol use: Heavy Drug Abuse: None Lives with: Family Family History: Arthritis, CAD, COPD, Other Patient has suicidal ideation: No Patient has homicidal ideation: No - Past Medical History Cardiac Medical History: Reports: Hx Coronary Artery Disease, Hx Heart Attack - [place] occured in 2002. Takes ASA now, used to be on hypertensive medications, Hx Hypercholesterolemia, Hx Hypertension Pulmonary Medical History: Reports: Hx Asthma, Hx Bronchitis, Hx COPD, Hx Pneumonia Musculoskeltal Medical History: Reports Hx Arthritis, Reports Hx Musculoskeletal Deformity, Reports Hx Musculoskeletal Trauma Psychiatric Medical History: Reports: Hx Depression Traumatic Medical History: Reports: Hx Fractures - Left rib fractures with pneumothorax requiring chest tube on 05/23/2016 Past Surgical History: Reports: Hx Cardiac Catheterization - Immunizations Immunizations up to date: Yes Hx Diphtheria, Pertussis, Tetanus Vaccination: Yes Hx Pneumococcal Vaccination: 02/22/13 Review of Systems - Review of Systems Constitutional: denies: Chills, Fever EENT: No symptoms reported Cardiovascular: No symptoms reported Respiratory: See HPI Gastrointestinal: No symptoms reported Genitourinary: No symptoms reported Male Genitourinary: No symptoms reported Musculoskeletal: No symptoms reported Skin: No symptoms reported Hematologic/Lymphatic: No symptoms reported Neurological/Psychological: No symptoms reported Physical Exam - Vital signs Vitals: Temp Pulse Resp BP Pulse Ox 97.2 F 86 30 H 120/45 L 95 09/24/16 20:44 09/24/16 20:44 09/24/16 20:44 09/24/16 20:44 09/24/16 20:44 Notes: Physical exam: GENERAL: 60-year-old man, alert and oriented 3, mild distress. HEAD: Atraumatic, normocephalic. EYES: Pupils equal round and reactive to light, extraocular movements intact, sclera anicteric, conjunctiva are normal. ENT: TMs normal, nares patent, oropharynx clear without exudates. Moist mucous membranes. NECK: Normal range of motion, supple without lymphadenopathy or JVD. LUNGS: Wheezes bilaterally. HEART: Regular rate and rhythm without murmurs, rubs or gallops. ABDOMEN: Soft, nontender, normoactive bowel sounds. No guarding, no rebound. No masses appreciated. EXTREMITIES: Normal range of motion, no pitting or edema. No clubbing or cyanosis. NEUROLOGICAL: Cranial nerves II through XII grossly intact. Normal speech, normal gait. PSYCH: Normal mood, normal affect. SKIN: Warm, Dry, normal turgor, no rashes or lesions noted. Course - Re-evaluation Re-evalutation: 09/25/16 02:30 Patient observed several hours in the ER. Patient improved after nebulizers, steroids, magnesium. He is sleeping comfortably. 09/25/16 02:33 - Vital Signs Vital signs: Temp Pulse Resp BP Pulse Ox 97.2 F 86 30 H 120/45 L 95 09/24/16 20:44 09/24/16 20:44 09/24/16 20:44 09/24/16 20:44 09/24/16 20:44 - Laboratory Result Diagrams: 09/24/16 21:09 09/24/16 21:09 Laboratory results interpreted by me: 09/24/16 09/24/16 21:09 21:09 RBC 4.34 L Hgb 12.9 L RDW 16.6 H Lymphocytes % 11.8 L Sodium 130.4 L Chloride 92 L BUN 6 L Creatinine 0.49 L - Diagnostic Test Radiology reviewed: Image reviewed, Reports reviewed - X-ray shows no infiltrates or effusions Discharge - Discharge Clinical Impression: COPD exacerbation Condition: Stable Disposition: HOME, SELF-CARE Instructions: Chronic Obstructive Lung Disease ([facility]) Additional Instructions: Recommendations: Follow-up with your primary care doctor Return to the emergency room for worsening shortness of breath. Continue current medicines. Prescriptions: Prednisone [Deltasone 20 mg Tablet] 3 tab PO DAILY 5 Days Referrals: EPHRAIM MADSEN MD [Primary Care Provider] - Follow up in 3-5 days
[2016-09-25 04:26] VITALS: BP 133/80
== END 2016-09-25 04:07 | disposition home or self-care (01) ==
LOC: ER 20:00
DX: J44.1 Chronic obstructive pulmonary disease with (acute) exacerbation (principal); R06.00 Dyspnea, unspecified; F17.210 Nicotine dependence, cigarettes, uncomplicated; E78.00 Pure hypercholesterolemia, unspecified; I10 Essential (primary) hypertension; I25.2 Old myocardial infarction
CPT/HCPCS: 94640 ×2; 99285; 36415; 80307; 85025; 80053; 83880; 71010; J3475; A9270 ×2; J7620

== ENCOUNTER 2016-10-26 19:32 | Emergency (ER) | payer MEDICARE, MEDICAID ==
[2016-10-26] MEDS ORDERED: DEXAMETHASONE 4 MG TABLET PO ONE (20:01)
[2016-10-26] MEDS ORDERED: ALBUTEROL SULFATE HFA (90 MCG/PUFF) 8 GM MDI (1 MDI/ER DISP) IH PRN (20:01)
[2016-10-26] MEDS ORDERED: DEXAMETHASONE SOD PHOSPHATE INJ 4 MG/1 ML VIAL ONE (20:02)
--- NOTE | 2016-10-26 20:06 | ER Document Report ---
ED General - General Stated Complaint: BREATHING DIFFICULTY Notes: Patient is a 61-year-old male with past medical history of COPD, still an active smoker who presents by EMS after complaining of shortness of breath and being found hypoxemic with an initial oxygen saturation of 77% on room air. States that his symptoms have mostly resolved after receiving 2 DuoNeb nebulizers prior to arrival. Immediately upon my assessment patient is refusing to provide additional history stating over and over "I just want to leave, take his IV out". He refuses to provide any additional history. TRAVEL OUTSIDE OF THE [place] IN LAST 30 DAYS: No - Related Data Allergies/Adverse Reactions: No Known Allergies Allergy (Verified 09/22/16 21:03) Past Medical History - General Information source: Patient Cannot obtain history due to: Uncooperative - Social History Smoking Status: Current Every Day Smoker Frequency of alcohol use: None Drug Abuse: None Family History: Arthritis, CAD, COPD, Other - Past Medical History Cardiac Medical History: Reports: Hx Coronary Artery Disease, Hx Heart Attack - [place] occured in 2002. Takes ASA now, used to be on hypertensive medications, Hx Hypercholesterolemia, Hx Hypertension Pulmonary Medical History: Reports: Hx Asthma, Hx Bronchitis, Hx COPD, Hx Pneumonia Musculoskeltal Medical History: Reports Hx Arthritis, Reports Hx Musculoskeletal Deformity, Reports Hx Musculoskeletal Trauma Psychiatric Medical History: Reports: Hx Depression Traumatic Medical History: Reports: Hx Fractures - Left rib fractures with pneumothorax requiring chest tube on 05/23/2016 Past Surgical History: Reports: Hx Cardiac Catheterization - Immunizations Immunizations up to date: Yes Hx Diphtheria, Pertussis, Tetanus Vaccination: Yes Hx Pneumococcal Vaccination: 02/22/13 Review of Systems - Review of Systems Notes: Constitutional: Negative for fever. HENT: Negative for sore throat. Eyes: Negative for visual changes. Cardiovascular: Negative for chest pain. Respiratory: Positive for shortness of breath. Gastrointestinal: Negative for abdominal pain, vomiting or diarrhea. Genitourinary: Negative for dysuria. Musculoskeletal: Negative for back pain. Skin: Negative for rash. Neurological: Negative for headaches, weakness or numbness. 10 point ROS negative except as marked above and in HPI. Physical Exam - Vital signs Interpretation: Tachypneic Notes: PHYSICAL EXAMINATION: GENERAL: Appears older than stated age, in mild respiratory distress HEAD: Atraumatic, normocephalic. EYES: Pupils equal round and reactive to light, extraocular movements intact, sclera anicteric, conjunctiva are normal. ENT: nares patent, oropharynx clear without exudates. Dry mucous membranes. NECK: Normal range of motion, supple without lymphadenopathy LUNGS: Tight air movement bilaterally, mild respiratory distress with tachypnea. Expiratory wheezing bilaterally. HEART: Regular rate and rhythm without murmurs ABDOMEN: Soft, nontender, normoactive bowel sounds. No guarding, no rebound. No masses appreciated. EXTREMITIES: Normal range of motion, no pitting or edema. No cyanosis. NEUROLOGICAL: No focal neurological deficits. Moves all extremities spontaneously and on command. PSYCH: Mildy agitated, clinicaly sober. SKIN: Warm, Dry, normal turgor, no rashes or lesions noted. Course - Re-evaluation Re-evalutation: 10/26/16 20:03 Patient arrives after being brought in by EMS for respiratory distress and a COPD exacerbation. Immediately on my assessment, the patient is demanding to leave the emergency department. I'm unable to redirect him to stay in the emergency department. He continuously states "I don't care does want to go". Patient continues to sound wheezy, tight bilaterally. His initial oxygen saturations prior to EMS were 77% on room air. I was able to convince the patient to take a dose of oral Decadron and given albuterol MDI inhaler to take home with him. The patient has chosen to leave the facility against medical advice. The relevant issues have been reviewed and discussed with the patient and family at the bedside. At the time of this assessment there is no indication for involuntary commitment. The patient is alert, oriented, and able to express clearly their reasoning for not wanting to remain in the emergency department for further treatment. The patient is not clinically psychotic, intoxicated, and denies and suicidal ideation. Differential or suspected diagnoses based on medical screening exam: COPD exacerbation. The patient is aware of the concerning diagnoses and acknowledges understanding of the reasons for the following recommendations: Remain in the emergency department for treatment, evaluation for alternative pathologies, and escalation of care should he not respond The following recommendations/services were offered and refused: Diagnostic evaluation, therapeutic measures, and possible admission The following risks were explained: , permanent disability, loss of function Clinical impression: Patient is competent to make decisions regarding the medical that is being offered. - EKG Interpretation by Me Additional EKG results interpreted by me: 10/26/16 22:29 Normal sinus rhythm. Rate 82. No ST elevations or depressions. QTC is 425. Discharge - Discharge Clinical Impression: COPD exacerbation Condition: Fair Disposition: AGAINST MEDICAL ADVICE Additional Instructions: You elected to leave the hospital AGAINST MEDICAL ADVICE. You have accepted the risks of this decision and have verbalized to understand that you could get much sicker by leaving without an appropriate evaluation and treatment or even . Please use the albuterol inhaler you were sent home with as needed for shortness of breath. Please return to the emergency department immediately if you would like to complete your evaluation get the appropriate treatment.
--- NOTE | 2016-10-27 08:45 | EKG REPORT ---
SEVERITY:- BORDERLINE ECG - SINUS RHYTHM BORDERLINE RIGHT AXIS DEVIATION BORDERLINE ST ELEVATION, ANTERIOR LEADS : Confirmed by: Lázaro De La Garza MD 27-Oct-2016 08:44:55
== END 2016-10-26 20:12 | disposition left against medical advice (07) ==
LOC: ER 19:32
DX: J44.1 Chronic obstructive pulmonary disease with (acute) exacerbation (principal); F17.200 Nicotine dependence, unspecified, uncomplicated; R06.02 Shortness of breath; R09.02 Hypoxemia; I25.10 Atherosclerotic heart disease of native coronary artery without angina pectoris; I25.2 Old myocardial infarction; I10 Essential (primary) hypertension; J45.909 Unspecified asthma, uncomplicated; Z87.01 Personal history of pneumonia (recurrent); Z53.20 Procedure and treatment not carried out because of patient's decision for unspecified reasons
CPT/HCPCS: 93005; 93010; 99281; J3490

== ENCOUNTER 2016-10-27 09:17 | Emergency (ER) | payer MEDICARE, MEDICAID ==
[2016-10-27 09:51] VITALS: BP 152/66
--- NOTE | 2016-10-27 19:29 | EKG REPORT ---
SEVERITY:- OTHERWISE NORMAL ECG - SINUS RHYTHM BORDERLINE RIGHT AXIS DEVIATION : Confirmed by: Lázaro De La Garza MD 27-Oct-2016 19:28:34
== END 2016-10-27 10:03 | disposition left against medical advice (07) ==
LOC: ER 09:17
DX: Z53.9 Procedure and treatment not carried out, unspecified reason (principal); R06.02 Shortness of breath
CPT/HCPCS: 93005; 93010

== ENCOUNTER 2016-10-27 23:54 | Emergency (ER) | payer MEDICARE, MEDICAID ==
[2016-10-28] MEDS ORDERED: IPRATROPIUM/ALBUTEROL 0.5-2.5 MG/3 ML AMPUL NEB ONE (00:45)
[2016-10-28] MEDS ORDERED: NORMAL SALINE 1000 ML 1,000 ML IV ONE (00:46)
--- NOTE | 2016-10-28 00:47 | ER Document Report ---
ED General - General Chief Complaint: Cough Stated Complaint: DIFFICULTY BREATHING Notes: Patient is a 61-year-old male frequent visitor to this emergency department after refuses care upon arrival to the emergency department who presents with complaints of increased shortness of breath. States he has not been taking any medications and continues to smoke. Symptoms. He has not seen his primary care regarding today's concerns. He has been seen multiple times in the emergency department in the past 2 days for the same complaint including by myself and has in the left without being seen or left AGAINST MEDICAL ADVICE. He denies any chest pain, fever, increased sputum production, syncope, or lower extremities swelling. TRAVEL OUTSIDE OF THE [place] IN LAST 30 DAYS: No - Related Data Allergies/Adverse Reactions: No Known Allergies Allergy (Verified 09/22/16 21:03) Past Medical History - General Information source: Patient - Social History Smoking Status: Current Every Day Smoker Frequency of alcohol use: Heavy Drug Abuse: None Lives with: Alone Family History: Arthritis, CAD, COPD, Other - Past Medical History Cardiac Medical History: Reports: Hx Coronary Artery Disease, Hx Heart Attack - CT occured in 2002. Takes ASA now, used to be on hypertensive medications, Hx Hypercholesterolemia, Hx Hypertension Pulmonary Medical History: Reports: Hx Asthma, Hx Bronchitis, Hx COPD, Hx Pneumonia Renal/ Medical History: Denies: Hx Peritoneal Dialysis Musculoskeltal Medical History: Reports Hx Arthritis, Reports Hx Musculoskeletal Deformity, Reports Hx Musculoskeletal Trauma Psychiatric Medical History: Reports: Hx Depression Traumatic Medical History: Reports: Hx Fractures - Left rib fractures with pneumothorax requiring chest tube on 05/23/2016 Past Surgical History: Reports: Hx Cardiac Catheterization - Immunizations Immunizations up to date: Yes Hx Diphtheria, Pertussis, Tetanus Vaccination: Yes Hx Pneumococcal Vaccination: 02/22/13 Review of Systems - Review of Systems Notes: Constitutional: Negative for fever. HENT: Negative for sore throat. Eyes: Negative for visual changes. Cardiovascular: Negative for chest pain. Respiratory: Positive for shortness of breath. Gastrointestinal: Negative for abdominal pain, vomiting or diarrhea. Genitourinary: Negative for dysuria. Musculoskeletal: Negative for back pain. Skin: Negative for rash. Neurological: Negative for headaches, weakness or numbness. 10 point ROS negative except as marked above and in HPI. Physical Exam - Vital signs Vitals: Temp Pulse Resp BP Pulse Ox 98.4 F 81 18 131/63 H 99 02/12/17 00:11 10/28/16 00:11 10/28/16 00:11 10/28/16 00:11 10/28/16 00:11 Interpretation: Normal Notes: PHYSICAL EXAMINATION: GENERAL: Appears much older than stated age, no acute distress HEAD: Atraumatic, normocephalic. EYES: Pupils equal round and reactive to light, extraocular movements intact, sclera anicteric, conjunctiva are normal. ENT: nares patent, oropharynx clear without exudates. Dry mucous membranes. NECK: Normal range of motion, supple without lymphadenopathy LUNGS: No respiratory distress. Faint wheezing bilaterally. HEART: Regular rate and rhythm without murmurs ABDOMEN: Soft, nontender, normoactive bowel sounds. No guarding, no rebound. No masses appreciated. EXTREMITIES: Normal range of motion, no pitting or edema. No cyanosis. NEUROLOGICAL: No focal neurological deficits. Moves all extremities spontaneously and on command. PSYCH: Normal mood, normal affect. SKIN: Warm, Dry, normal turgor, no rashes or lesions noted. Course - Re-evaluation Re-evalutation: 10/28/16 00:46 Patient presents with a mild exacerbation of their baseline COPD. Mild wheezing at time of presentation but vitals do not show significant hypoxemia or tachypnea. No retractions. Patient did clinically improve after receiving nebulizers here in the emergency department. Chest x-ray without evidence of an acute pneumonia. Laboratories do not show acute kidney injury or significant leukocytosis. Patient able to ambulate without any respiratory distress. I do not suspect an acute alternative pathology at this time based on history and exam including acute pulmonary embolus, ACS, pneumothorax, or aortic dissection. Given patient's clinical improvement, I did wish to observe him in the emergency room for a more extended period of time and ensure that the radiologist agree with my read of the chest x-ray. Patient however began smoking in his room and demanded to leave. He will be leaving AGAINST MEDICAL ADVICE with a second time in 2 days. Of note that this is his fourth visit in 2 days and he has left without being seen her AGAINST MEDICAL ADVICE on every occasion - Vital Signs Vital signs: Temp Pulse Resp BP Pulse Ox 98.4 F 81 13 121/65 91 L 10/28/16 00:11 10/28/16 00:11 10/28/16 00:50 10/28/16 00:50 10/28/16 00:50 - Laboratory Result Diagrams: 10/28/16 01:03 10/28/16 01:03 Laboratory results interpreted by me: 10/28/16 10/28/16 10/28/16 01:03 01:03 01:03 WBC 10.7 H RBC 4.07 L Hgb 11.8 L Hct 34.8 L RDW 16.1 H Lymphocytes % 10.6 L Monocytes % 13.8 H Absolute Monocytes 1.5 H Sodium 123.0 L Chloride 86 L BUN 5 L Creatinine 0.41 L Calcium 8.3 L Creatine Kinase 328 H CK-MB (CK-2) 14.00 H - Diagnostic Test Radiology reviewed: Image reviewed, Reports reviewed Radiology results interpreted by me: 10/28/16 02:00 Chest x-ray: no acute infiltrate Discharge - Discharge Clinical Impression: COPD exacerbation Condition: Fair Disposition: AGAINST MEDICAL ADVICE Additional Instructions: You were smoking in the emergency room despite being here for a COPD exacerbation. You need to reconsider the approach that you take your health as it appears that you frequently come to the emergency department but then decided that you do not want her help. If you would like to return for a complete, thorough assessment with active treatment of your COPD please return to the emergency department.
[2016-10-28] MEDS ORDERED: MAGNESIUM SULFATE/D5W 100 ML IV SCH (01:00)
[2016-10-28 01:35] LABS: ABSOLUTE LYMPHOCYTES (AUTO) 1.1 10^3/uL (0.5-4.7); ABSOLUTE MONOCYTES (AUTO) 1.5 10^3/uL (0.1-1.4); ABSOLUTE NEUT (AUTO) 8.1 10^3/uL (1.7-8.2); BASOPHILS % (AUTO) 0.2 % (0-2); HEMATOCRIT 34.8 % (37.9-51.0); HEMOGLOBIN 11.8 g/dL (13.5-17.0); HGB HCT DIFFERENCE 0.6; LYMPHOCYTES % (AUTO) 10.6 % (13-45); MEAN CORPUSCULAR HEMOGLOBIN 28.9 pg (27.0-33.4); MEAN CORPUSCULAR HGB CONC 33.7 g/dL (32.0-36.0); MEAN CORPUSCULAR VOLUME 86 fl (80-97); MONOCYTES % (AUTO) 13.8 % (3-13); RED BLOOD COUNT 4.07 10^6/uL (4.35-5.55); RED CELL DISTRIBUTION WIDTH 16.1 % (11.5-14.0); SEGMENTED NEUTROPHILS % (AUTO) 75.4 % (42-78); WHITE BLOOD COUNT 10.7 10^3/uL (4.0-10.5)
[2016-10-28 01:42] LABS: ANION GAP 9 (5-19); BLOOD UREA NITROGEN 5 mg/dL (7-20); CALCIUM 8.3 mg/dL (8.4-10.2); CARBON DIOXIDE 28 mmol/L (22-30); CHLORIDE 86 mmol/L (98-107); CREATINE KINASE 328 U/L (55-170); CREATININE RESULT 0.41 mg/dL (0.52-1.25); GLUCOSE 82 mg/dL (75-110); POTASSIUM 4.2 mmol/L (3.6-5.0)
[2016-10-28 01:55] LABS: TROPONIN I < 0.012 ng/mL
[2016-10-28 02:03] VITALS: BP 111/67
--- NOTE | 2016-10-28 11:02 | EKG REPORT ---
SEVERITY:- OTHERWISE NORMAL ECG - SINUS RHYTHM BORDERLINE RIGHT AXIS DEVIATION : Confirmed by: Lázaro De La Garza MD 28-Oct-2016 11:02:32
== END 2016-10-28 02:03 | disposition left against medical advice (07) ==
LOC: ER 23:54
DX: R05 Cough (principal); R06.02 Shortness of breath; F17.210 Nicotine dependence, cigarettes, uncomplicated; J44.1 Chronic obstructive pulmonary disease with (acute) exacerbation
CPT/HCPCS: 93005; 94640; 99285; 36415; 82553; 82550; 85025; 80048; 84484; 71010; 93010; A9270; J7620

== ENCOUNTER 2016-10-28 02:54 | Emergency (ER) | payer MEDICARE, MEDICAID ==
[2016-10-28 03:13] VITALS: BP 130/85
== END 2016-10-28 03:40 | disposition left against medical advice (07) ==
LOC: ER 02:54
DX: Z53.9 Procedure and treatment not carried out, unspecified reason (principal); R06.02 Shortness of breath

== ENCOUNTER 2016-10-28 07:42 | Inpatient (IN) | payer MEDICARE, MEDICAID ==
[2016-10-28] MEDS ORDERED: OXYCODONE-ACETAMINOPHEN 5-325 MG TABLET PO ONE (08:41)
[2016-10-28] MEDS ORDERED: IPRATROPIUM/ALBUTEROL 0.5-2.5 MG/3 ML AMPUL NEB ONE (08:41)
--- NOTE | 2016-10-28 08:44 | ER Document Report ---
ED General - General Chief Complaint: Breathing Difficulty Stated Complaint: SHORTNESS OF BREATH Mode of Arrival: Medic Information source: Patient, Emergency Med Personnel Notes: Patient presents to the emergency department with complaints of shortness of breath. Patient has been to the emergency department 6 times in the past 2 days. Patient has left several times without being seen. Patient reports history of chronic back pain. Patient also reports heavy drinking. He reports he's been short of breath for a while. Denies chest pain denies vomiting diarrhea. Patient was extremely anxious. Reports he is afraid he is going to . TRAVEL OUTSIDE OF THE [place] IN LAST 30 DAYS: No - HPI Onset: Other Onset/Duration: Persistent Quality of pain: No pain Associated symptoms: Shortness of breath Exacerbated by: Denies Relieved by: Denies Similar symptoms previously: Yes Recently seen / treated by doctor: Yes - Related Data Allergies/Adverse Reactions: No Known Allergies Allergy (Verified 10/28/16 08:02) Home Medications: Current Home Medications Multivitamin [Multivitamins] 1 each PO DAILY 10/28/16 [History] Past Medical History - General Information source: Patient, Emergency Med Personnel - Social History Smoking Status: Current Every Day Smoker Cigarette use (# per day): Yes Chew tobacco use (# tins/day): No Smoking Education Provided: No Frequency of alcohol use: Heavy Drug Abuse: None Lives with: Alone Family History: Arthritis, CAD, COPD, Other - Past Medical History Cardiac Medical History: Reports: Hx Coronary Artery Disease, Hx Heart Attack - [place] occured in 2002. Takes ASA now, used to be on hypertensive medications, Hx Hypercholesterolemia, Hx Hypertension Pulmonary Medical History: Reports: Hx Asthma, Hx Bronchitis, Hx COPD, Hx Pneumonia Renal/ Medical History: Denies: Hx Peritoneal Dialysis Musculoskeltal Medical History: Reports Hx Arthritis, Reports Hx Musculoskeletal Deformity, Reports Hx Musculoskeletal Trauma Psychiatric Medical History: Reports: Hx Depression Traumatic Medical History: Reports: Hx Fractures - Left rib fractures with pneumothorax requiring chest tube on 05/23/2016 Past Surgical History: Reports: Hx Cardiac Catheterization - Immunizations Immunizations up to date: Yes Hx Diphtheria, Pertussis, Tetanus Vaccination: Yes Hx Pneumococcal Vaccination: 02/22/13 Physical Exam - Vital signs Vitals: Temp Pulse Resp BP Pulse Ox 97.8 F 92 22 H 139/62 H 95 10/28/16 07:50 10/28/16 07:50 10/28/16 07:50 10/28/16 07:50 10/28/16 07:50 - Notes Notes: PHYSICAL EXAMINATION: GENERAL: frail, looks older than age HEAD: Atraumatic, normocephalic. EYES: Pupils equal round extraocular movements intact, sclera anicteric, conjunctiva are normal. ENT: nares patent, oropharynx clear without exudates. Moist mucous membranes. NECK: Normal range of motion, supple without lymphadenopathy LUNGS: + wheezes, rhonchi, decreased breath sounds HEART: tachy ABDOMEN: Soft, no tenderness. No guarding, no rebound BACK: Kyphosis, EXTREMITIES: Normal range of motion, no pitting edema. No cyanosis. NEUROLOGICAL: Cranial nerves grossly intact. PSYCH: Normal mood, normal affect. SKIN: Warm, Dry, normal turgor, no rashes or lesions noted Course - Re-evaluation Re-evalutation: 10/28/16 10:45 I have consulted the attending provider DR BAL per [facility] guidelines Ativan IV given for patient who is very anxious. He has calmed down, RR even now. sleeping Consult Dr. Fredy Gutierrez for admission for COPD shortness of breath hx of ETOH abuse.. Patient updated on plan of care - Vital Signs Vital signs: Temp Pulse Resp BP Pulse Ox 97.9 F 92 20 130/76 H 97 10/28/16 19:51 10/28/16 19:51 10/28/16 19:51 10/28/16 19:51 10/28/16 19:51 - Laboratory Result Diagrams: 10/28/16 09:10 10/28/16 09:10 Laboratory results interpreted by me: 10/28/16 10/28/16 10/28/16 09:10 09:10 09:10 RBC 4.20 L Hgb 11.9 L Hct 36.2 L RDW 16.1 H Seg Neutrophils % 81.4 H Lymphocytes % 7.1 L Absolute Neutrophils 8.5 H Sodium 123.0 L Chloride 87 L BUN 5 L Creatinine 0.49 L Calcium 8.2 L AST 155 H ALT 82 H Creatine Kinase 324 H CK-MB (CK-2) 11.40 H - Diagnostic Test Radiology reviewed: Image reviewed, Reports reviewed - neg Discharge - Discharge Clinical Impression: SOB (shortness of breath), COPD exacerbation, Alcohol abuse, Hyponatremia Condition: Stable Disposition: ADMITTED INPATIENT Admitting Provider: Ivelisseist [facility] Unit Admitted: [facility]
[2016-10-28 09:08] LABS: APPEARANCE,URINE CLOUDY
[2016-10-28 09:09] LABS: BILIRUBIN,URINE NEGATIVE (NEGATIVE); GLUCOSE, URINE NEGATIVE (NEGATIVE); KETONES,URINE NEGATIVE (NEGATIVE); LEUKOCYTE ESTERASE,URINE NEGATIVE (NEGATIVE); NITRITE,URINE NEGATIVE (NEGATIVE); PROTEIN,URINE NEGATIVE (NEGATIVE); URINE SPECIFIC GRAVITY 1.011; UROBILINOGEN,URINE NEGATIVE mg/dL (<2.0)
[2016-10-28 09:32] LABS: ABSOLUTE LYMPHOCYTES (AUTO) 0.7 10^3/uL (0.5-4.7); ABSOLUTE MONOCYTES (AUTO) 1.2 10^3/uL (0.1-1.4); ABSOLUTE NEUT (AUTO) 8.5 10^3/uL (1.7-8.2); BASOPHILS % (AUTO) 0.4 % (0-2); HEMATOCRIT 36.2 % (37.9-51.0); HEMOGLOBIN 11.9 g/dL (13.5-17.0); HGB HCT DIFFERENCE -0.5; LYMPHOCYTES % (AUTO) 7.1 % (13-45); MEAN CORPUSCULAR HEMOGLOBIN 28.3 pg (27.0-33.4); MEAN CORPUSCULAR HGB CONC 32.8 g/dL (32.0-36.0); MEAN CORPUSCULAR VOLUME 86 fl (80-97); MONOCYTES % (AUTO) 11.1 % (3-13); RED CELL DISTRIBUTION WIDTH 16.1 % (11.5-14.0); SEGMENTED NEUTROPHILS % (AUTO) 81.4 % (42-78); WHITE BLOOD COUNT 10.4 10^3/uL (4.0-10.5)
[2016-10-28] MEDS ORDERED: LORAZEPAM INJ 2 MG/1 ML VIAL IV ONE (09:33)
[2016-10-28 09:47] LABS: ALANINE AMINOTRANSFERASE 82 U/L (21-72); ALBUMIN 3.5 g/dL (3.5-5.0); ALKALINE PHOSPHATASE 72 U/L (38-126); ANION GAP 10 (5-19); ASPARTATE AMINO TRANSFERASE 155 U/L (17-59); BILIRUBIN,TOTAL 0.5 mg/dL (0.2-1.3); BLOOD UREA NITROGEN 5 mg/dL (7-20); CALCIUM 8.2 mg/dL (8.4-10.2); CARBON DIOXIDE 26 mmol/L (22-30); CHLORIDE 87 mmol/L (98-107); CREATINE KINASE 324 U/L (55-170); CREATININE RESULT 0.49 mg/dL (0.52-1.25); GLUCOSE 75 mg/dL (75-110); POTASSIUM 4.1 mmol/L (3.6-5.0); TOTAL PROTEIN 6.4 g/dL (6.3-8.2)
[2016-10-28 10:01] LABS: TROPONIN I < 0.012 ng/mL
[2016-10-28] MEDS ORDERED: ALBUTEROL SULFATE 0.083% NEB 2.5 MG/3 ML AMPUL NEB ONE (10:39)
--- NOTE | 2016-10-28 11:02 | EKG REPORT ---
SEVERITY:- OTHERWISE NORMAL ECG - SINUS TACHYCARDIA : Confirmed by: Lázaro De La Garza MD 28-Oct-2016 11:02:22
[2016-10-28] MEDS ORDERED: IPRATROPIUM/ALBUTEROL 0.5-2.5 MG/3 ML AMPUL NEB PRN (11:13)
[2016-10-28] MEDS ORDERED: ACETAMINOPHEN 325 MG TABLET PO PRN (11:18)
[2016-10-28] MEDS ORDERED: LORAZEPAM INJ 2 MG/1 ML VIAL IV PRN (11:21)
[2016-10-28] MEDS ORDERED: MORPHINE SULFATE 10 MG/ML INJ IV PRN (11:27)
[2016-10-28] MEDS ORDERED: LEVOFLOXACIN 750 MG/D5W RTU 750 MG/150 ML RTUPB IV SCH ×2 (12:00)
[2016-10-28] MEDS ORDERED: ENOXAPARIN SODIUM INJ 40 MG/0.4 ML DISP.SYRIN SUBCUT ONE (12:30)
[2016-10-28 12:43] LABS: MAGNESIUM 1.8 mg/dL (1.6-2.3); PHOSPHORUS 3.2 mg/dL (2.5-4.5)
[2016-10-28] MEDS: LORAZEPAM INJ 2 MG/1 ML VIAL IV PRN ×4 (12:59→23:47)
[2016-10-28] MEDS: RINGERS SOLUTION,LACTATED 1,000 ML IV PRN (14:26)
[2016-10-28] MEDS: METHYLPREDNISOLONE INJ 40 MG/1 ML SDV IV SCH ×2 (14:27→22:10)
--- NOTE | 2016-10-28 14:56 | PDOC H&P ---
History of Present Illness Admission Date/PCP: 10/28/16 11:13 EPHRAIM MADSEN MD Patient complains of: Shortness of breath History of Present Illness: LEIF NUÑEZ is a 61 year old male presents to the emergency department from home for the seventh time in the last 8 days with complaints of shortness of breath, weakness and generalized pain. The patient is a known alcoholic with severe COPD who continues to smoke, has been treated for rhonchi to his numerous times over the last several days and offered admission but has always signed out AGAINST MEDICAL ADVICE. Dr. Salas had the patient in the hospital on September 22 for COPD exacerbation but the patient signed out AMA within 12 hours. Since his arrival in the emergency department is received 2 mg of IV Ativan and by the time I arrived he was too sedated answer questions or provide reliable review of systems her medical history in fact it was difficult to get him to participate in his exam. ED physician reports significant bronchospasm and hypoxia on arrival, he's been treated with supplemental oxygen, nebulizers, ATIVAN and narcotics and we were asked to admit for management of an acute COPD exacerbation. of note, his ETOH level is 66. Past Medical History Cardiac Medical History: Reports: Coronary Artery Disease, Myocardial Infarction - [place] occured in 2002. Takes ASA now, used to be on hypertensive medications, Hyperlipidema, Hypertension Pulmonary Medical History: Reports: Asthma, Bronchitis, Chronic Obstructive Pulmonary Disease (COPD), Pneumonia Musculoskeltal Medical History: Reports: Arthritis Psychiatric Medical History: Reports: Depression Past Surgical History Past Surgical History: Reports: Cardiac Catheterization Social History Information Source: [facility] Records Smoking Status: Current Every Day Smoker Cigarettes Packs Per Day: 1 Number of Years Smokin Last Time Smoked: 10/27/2016 Frequency of Alcohol Use: Heavy Hx Recreational Drug Use: No Drugs: None Hx Prescription Drug Abuse: No - Advance Directive Resuscitation Status: Full Code Family History Family History: Arthritis, CAD, COPD, Other Parental Family History Reviewed: Yes Children Family History Reviewed: Yes Sibling(s) Family History Reviewed.: Yes Medication/Allergy Home Medications: Albuterol Sulfate [Ventolin Hfa] 2 puff IH Q4HP PRN #17 gm 05/11/16 Budesonide/Formoterol Fumarate [Symbicort Hfa 160-4.5 Mcg Inhaler 6 gm] 2 puff IH Q12 06/02/16 Clopidogrel Bisulfate [Plavix 75 mg Tablet] 75 mg PO DAILY 06/02/16 Levothyroxine Sodium [Synthroid 0.075 mg Tablet] 0.075 mg PO DAILY 06/02/16 Lisinopril [Prinivil] 20 mg PO DAILY 06/02/16 Tiotropium [place] [Spiriva Respimat] 2 inh IH DAILY 06/02/16 Albuterol Sulfate [Albuterol Sulfate 2.5mg/3 mL] 1 vial IH TID 09/23/16 Alprazolam [Xanax 0.5 mg Tablet] 1 tab PO QPM 09/23/16 Calcium Carbonate [Calcium] 500 mg PO BID 09/23/16 Ferrous Sulfate [Iron] 65 mg PO DAILY 09/23/16 Oxycodone HCl/Acetaminophen [Percocet 7.5-325 mg Tablet] 1 tab PO Q6H PRN Rosuvastatin Calcium [Crestor 20 mg Tablet] 1 tab PO DAILY 09/23/16 Prednisone [Deltasone 20 mg Tablet] 3 tab PO DAILY 5 Days 09/25/16 Allergies/Adverse Reactions: No Known Allergies Allergy (Verified 10/28/16 08:02) Review of Systems ROS unobtainable: Due to mental status Physical Exam Vital Signs: Temp Pulse Resp BP Pulse Ox 98.4 F 92 19 139/74 H 96 10/28/16 12:01 10/28/16 07:50 10/28/16 12:01 10/28/16 12:01 10/28/16 12:20 PHYSICAL EXAM GENERAL: NAD; well developed, well nourished; no obese; alert and oriented to person, place, time, situation HEENT: normocephalic, atraumatic; EOMI, PERRLA, no conjunctival injection, no scleral icterus; oral mucosa moist; neck supple, no LAD, normal ROM RESPIRATORY: Increased accessory muscle use, increased WOB, poor air entry bilaterally; no wheezes, rales, rhonchi; bilateral inspiratory crackles CARDIO: no JVD; RRR; 2/6 systolic murmur at the apex; borderline tachycardia VASCULAR: no carotid bruit; no abdominal bruit; no pallor; 2+ radial, DP pulse ; normal capillary refill GI: soft; nondistended; normal bowel sounds; no hepato spleno megaly; no rebound, rigidity, guarding; nontender NEURO: normal patella reflexes; MSK: 4/5 strength; normal ROM hips; ambulatory without assistance; no tenderness EXTREMITIES: no calf tender; no palpable cords in calf; no clubbing, cyanosis , pedal edema PSYCH: normal affect, normal mood SKIN: warm; moist; petechiae; telengectasias; no jaundice; no rash; plethoric and erythemic Results Laboratory Results: 10/28/16 10/28/16 12:11 12:11 Phosphorus 3.2 Magnesium 1.8 Ammonia < 8.7 L Labs reviewed, alcohol level 66 Impressions: Chest X-Ray 10/28/16 08:07 IMPRESSION: NO ACUTE RADIOGRAPHIC FINDING IN THE CHEST. Status: Image reviewed by me - Agree with radiology Assessment & Plan - Diagnosis (1) Acute and chronic respiratory failure with hypoxia Is this a current diagnosis for this admission?: YesPlan: Secondary to an acute bacterial bronchitis, admitted for IV antibiotics and systemic steroids, supplemental O2, nebs. (2) COPD exacerbation Is this a current diagnosis for this admission?: YesPlan: As above (3) ETOH abuse Is this a current diagnosis for this admission?: YesPlan: Thiamine. Scheduled and as needed Ativan (4) Protein-calorie malnutrition, moderate Is this a current diagnosis for this admission?: YesPlan: Nutritional supplement - Time Time Spent: Greater than 70 Minutes Anticipated discharge: Home Within: within 72 hours - Inpatient Certification Based on my medical assessment, after consideration of the patient's comorbidities, presenting symptoms, or acuity I expect that the services needed warrant INPATIENT care.: Yes I certify that my determination is in accordance with my understanding of Medicare's requirements for reasonable and necessary INPATIENT services [42 CFR 412.3e].: Yes Medical Necessity: Significant Comorbidiites Make Outpatient Treatment Too Risky , Need For IV Fluids, Need for Pain Control, Need for IV Antibiotics, Risk of Complication if Not Cared For in Hospital
[2016-10-28] MEDS: OXYCODONE-ACETAMINOPHEN 5-325 MG TABLET PO PRN ×2 (16:05→23:46)
[2016-10-28] MEDS: IPRATROPIUM/ALBUTEROL 0.5-2.5 MG/3 ML AMPUL NEB SCH (16:17)
[2016-10-28] MEDS ORDERED: THIAMINE HCL 100 MG TABLET PO ONE (20:00)
[2016-10-28] MEDS: FAMOTIDINE INJ/PF 20 MG/2 ML SDV IV SCH (22:10)
[2016-10-28] MEDS: LORAZEPAM INJ 2 MG/1 ML VIAL IV SCH (22:47)
[2016-10-29] MEDS: IPRATROPIUM/ALBUTEROL 0.5-2.5 MG/3 ML AMPUL NEB SCH ×2 (00:19→08:29)
[2016-10-29] MEDS: LORAZEPAM INJ 2 MG/1 ML VIAL IV PRN ×2 (03:06→10:28)
[2016-10-29] MEDS: RINGERS SOLUTION,LACTATED 1,000 ML IV PRN (03:28)
[2016-10-29 05:11] LABS: ABSOLUTE LYMPHOCYTES (AUTO) 0.3 10^3/uL (0.5-4.7); ABSOLUTE MONOCYTES (AUTO) 0.2 10^3/uL (0.1-1.4); ABSOLUTE NEUT (AUTO) 4.3 10^3/uL (1.7-8.2); BASOPHILS % (AUTO) 0.3 % (0-2); HEMATOCRIT 34.4 % (37.9-51.0); HEMOGLOBIN 11.3 g/dL (13.5-17.0); HGB HCT DIFFERENCE -0.5; LYMPHOCYTES % (AUTO) 6.1 % (13-45); MEAN CORPUSCULAR HEMOGLOBIN 28.3 pg (27.0-33.4); MEAN CORPUSCULAR VOLUME 86 fl (80-97); RED BLOOD COUNT 4.01 10^6/uL (4.35-5.55); RED CELL DISTRIBUTION WIDTH 16.2 % (11.5-14.0); SEGMENTED NEUTROPHILS % (AUTO) 89.6 % (42-78); WHITE BLOOD COUNT 4.8 10^3/uL (4.0-10.5)
[2016-10-29 05:26] LABS: ALANINE AMINOTRANSFERASE 73 U/L (21-72); ALBUMIN 3.4 g/dL (3.5-5.0); ALKALINE PHOSPHATASE 62 U/L (38-126); ASPARTATE AMINO TRANSFERASE 84 U/L (17-59); BILIRUBIN,TOTAL 0.6 mg/dL (0.2-1.3); BLOOD UREA NITROGEN 7 mg/dL (7-20); CALCIUM 8.4 mg/dL (8.4-10.2); CREATININE RESULT 0.53 mg/dL (0.52-1.25); GLUCOSE 114 mg/dL (75-110); MAGNESIUM 2.1 mg/dL (1.6-2.3); PHOSPHORUS 4.7 mg/dL (2.5-4.5); POTASSIUM 4.9 mmol/L (3.6-5.0); TOTAL PROTEIN 5.9 g/dL (6.3-8.2)
[2016-10-29] MEDS: METHYLPREDNISOLONE INJ 40 MG/1 ML SDV IV SCH (05:48)
[2016-10-29 05:52] LABS: CARBON DIOXIDE 31 mmol/L (22-30); CHLORIDE 91 mmol/L (98-107); SODIUM 128.1 mmol/L (137-145)
[2016-10-29 06:01] LABS: ANION GAP 6 (5-19)
[2016-10-29] MEDS: OXYCODONE-ACETAMINOPHEN 5-325 MG TABLET PO PRN (07:37)
[2016-10-29] MEDS ORDERED: ENOXAPARIN SODIUM INJ 40 MG/0.4 ML DISP.SYRIN SUBCUT SCH (08:00)
[2016-10-29 08:22] VITALS: BP 140/77
[2016-10-29] MEDS ORDERED: DOCUSATE SODIUM 100 MG CAPSULE PO SCH (10:00)
[2016-10-29] MEDS ORDERED: THIAMINE HCL 100 MG TABLET PO SCH (10:00)
[2016-10-29] MEDS ORDERED: NORMAL SALINE 1000 ML 1,000 ML IV SCH (10:00)
[2016-10-29] MEDS: LORAZEPAM INJ 2 MG/1 ML VIAL IV SCH (10:29)
[2016-10-29] MEDS: FAMOTIDINE INJ/PF 20 MG/2 ML SDV IV SCH (10:29)
--- NOTE | 2016-10-29 13:10 | Physician Advisory Note ---
Physician Advisor ProgressNote .: [facility] to the [facility], I have reviewed the medical record for this patient. Physician Advisor Statement: Possible documentation opportunities if attending agrees: 1. "acute on chronic hyponatremia, likely due to intravascular volume depletion & EtOHism" (or ....) 2. ? - "Acute alcoholic hepatitis" 3. Please document support for "chronic hypoxemic resp failure" dx, or indicate if this dx is r/o'd. - Pt not on chronic O2 (was he needing it & not getting it? If so, how much?) or chronic steroid tx .... Acute Resp Failure dx is nicely supported: pt w/hypoxemic documented while in ED (91% on 4L O2 at 12:48, prior to H&P, which means P/F ratio of 167, equivalent to pO2 << 50), & increased work of breathing with accessory muscle use. 4. "chronic nutritional ___ defic anemia" 5. "underweight with BMI 16.3 6. Please document explicitly, in DCSummary, that pt was expected to need at least 2MNs of hospital care at time of adm, unless that is untrue. 7. "fatty liver by U/S" 8. "pulsatile mass in abdomen concerning for AAA but insufficiently evaluated before pt left AMA" As always, if concerned about any unstable VS or abnormal labs, please comment on them & note what doing about them, & please document each day the potential clinical problems you are concerned could occur if pt not kept in hospital for tx at this time. Discussion: 61yo male w/ chronic co-morbidities including chronic back pain, heavy alcoholicsm, tobacco abuse, severe COPD, CAD/CT, HTN, depression, previous rib fxs, repeated visits to ED in past 2-8 days but leaving before being admitted - presented 2/12 AM to ED w/SOB, difficulty breathing, very anxious, saying he was afraid he would . (+) "Frail", appearing older than stated age, HR 92, RR22, sat 95%RA, (+)wheezes , rhonchi, decreased BS, Na 123, BUN 5, Cr 0.49, Hgb 11.9, EtOH level 66, AST 155, ALT 82, NH3<8.7, CK 324 w/CK-MB 11.4, trop I (-). ED gave 2 nebs, 1L NS IVF, & 2mg IV Ativan, & wheezing sounded improved at time of adm. Attending documented pt had hypoxia in ED, increased accessory muscle use, increased work of breathing, & poor air entry. Attending ordered Duonebs q8h + prn, LR @75, Levaquin IV, Solumderol 40 q8h, tele monitoring, thiamine, aspiration precautions, BC, sputum cx, O2, Bipap, Ativan 1mg q12h + up to 2mg q3h prn. Status: COPD exacerbations are typically best brought in as Outpt Obs initially, then re -evaluated for Inpt vs d/c after 1MN of hospital care. At time of adm, this pt was clearly severely ill with acute exac of chronic severe COPD, with significantly worsened work of breathing, severe hyponatremia , malnutrition evidenced by BMI 16.3 & very low BUN & Cr, evidence of acute hepatitis, strong chance of severe alcohol withdrawal with progression to possible DTs within 3-5 days. He had been getting insufficient care, by his own choices, for days, allowing his exacerbation to worsen further. His CAD put him at much increased risk for developing ACS or CHF acutely during alcohol withdrawal stresses to heart, especially with ongoing/recurrent hypoxemia ( taking off O2 at times per nursing notes). His CAD + electrolyte disturbances + need for frequent nebs + steroids for COPD exacerbation, + EtOH withdrawal increased his risks for arrhythmias as wel.. Tx in inpatient hospital setting medically reasonable & necessary to protect pt' s health, safety, & medical condition. Appropriate for Inpt status. Pt remained persistently tachycardic throughout the 1st day of hospitalization, with recurrent tachypnea as well. After 1st MN of care, pt still with hypoxemia of 86% on RA at 10:45 per nsg note when he took off O2. Pt still quite hyponatremic, with a pulsatile mass not fully clarified by U/S, "pt unable to cooperate with positioning" for U/S. Pt still quite shaky/ tremorous, boding poorly for his EtOH withdrawal severity to come. His choice to leave AMA just prior to this review, before a 2nd MN in hospital, is considered an "unforeseen circumstance" per Medicare guidelines and should not count against the decision made at time of admission that he clinically was expected to need 2 or more MNs of hospital care for stabilization. Thanks for your help with documentation accuracy/specificity improvement! Arlette Cody MD [facility] Physician Advisor, Fellow of [facility]
--- NOTE | 2016-10-29 13:36 | PDOC DISCHARGE SUMMARY ---
General - Admit/Disc Date/PCP Admission Date/Primary Care Provider: 10/28/16 11:13 EPHRAIM MADSEN MD Discharge Date: 10/29/16 - patient left AGAINST MEDICAL ADVICE - Discharge Diagnosis (1) Acute and chronic respiratory failure with hypoxia Is this a current diagnosis for this admission?: YesSummary: Patient has a long history of presenting hypoxic from home and is likely noncompliant with the use of home O2, though complete details are difficult to come back due to patient's willingness to discuss. He is noted to be functional , alert and oriented 3 by nursing staff with a room air saturation of 86% implying this is at or near his baseline. At some point, if the patient will allow, he should be evaluated for home O2. Of course the larger issue is his unwillingness to consider tobacco cessation in the setting of underlying COPD. (2) COPD exacerbation Is this a current diagnosis for this admission?: YesSummary: Likely triggered by an acute bacterial or viral bronchitis. Patient is unwilling to stay for antibiotics and unwilling to accept a prescription for same. (3) ETOH abuse Is this a current diagnosis for this admission?: YesSummary: Likely the reason the patient is leaving AGAINST MEDICAL ADVICE. I offered to continue treatment with anxiolytics but again the patient refused. (4) Protein-calorie malnutrition, moderate Is this a current diagnosis for this admission?: Yes - Additional Information Resuscitation Status: Full Code Home Medications: Albuterol Sulfate [Ventolin Hfa] 2 puff IH Q4HP PRN #17 gm 05/11/16 Budesonide/Formoterol Fumarate [Symbicort Hfa 160-4.5 Mcg Inhaler 6 gm] 2 puff IH Q12 06/02/16 Clopidogrel Bisulfate [Plavix 75 mg Tablet] 75 mg PO DAILY 06/02/16 Levothyroxine Sodium [Synthroid 0.075 mg Tablet] 0.075 mg PO DAILY 06/02/16 Lisinopril [Prinivil] 20 mg PO DAILY 06/02/16 Tiotropium [place] [Spiriva Respimat] 2 inh IH DAILY 06/02/16 Albuterol Sulfate [Albuterol Sulfate 2.5mg/3 mL] 1 vial IH TID 09/23/16 Alprazolam [Xanax 0.5 mg Tablet] 1 tab PO QHS 09/23/16 Ferrous Sulfate [Iron] 65 mg PO DAILY 09/23/16 Oxycodone HCl/Acetaminophen [Percocet 7.5-325 mg Tablet] 1 tab PO Q6H PRN Rosuvastatin Calcium [Crestor 20 mg Tablet] 1 tab PO DAILY 09/23/16 Multivitamin [Multivitamins] 1 each PO DAILY 10/28/16 History of Present Illness Patient complains of: Shortness of breath History of Present Illness: LEIF NUÑEZ is a 61 year old male presents to the emergency department from home for the seventh time in the last 8 days with complaints of shortness of breath, weakness and generalized pain. The patient is a known alcoholic with severe COPD who continues to smoke, has been treated for rhonchi to his numerous times over the last several days and offered admission but has always signed out AGAINST MEDICAL ADVICE. Dr. Salas had the patient in the hospital on September 22 for COPD exacerbation but the patient signed out AMA within 12 hours. Since his arrival in the emergency department is received 2 mg of IV Ativan and by the time I arrived he was too sedated answer questions or provide reliable review of systems her medical history in fact it was difficult to get him to participate in his exam. ED physician reports significant bronchospasm and hypoxia on arrival, he's been treated with supplemental oxygen, nebulizers, ATIVAN and narcotics and we were asked to admit for management of an acute COPD exacerbation. of note, his ETOH level is 66. Hospital Course Hospital Course: Patient was admitted to hospital and started on broad-spectrum antibiotics, systemic steroids, supplemental oxygen, nebulizer therapy and scheduled and as needed Ativan for treatment of impending alcohol withdrawal. He remained anxious and unsatisfied with his stay in the hospital and ultimately began refusing nursing interventions and treatments this morning. He has decided to leave AGAINST MEDICAL ADVICE and before I could arrive to dissuade him as I was called to admitting a patient in the ER and family conference discussing another ICU patient. Nursing staff attempted to calm him down, offered an anxiety medicine but he refused. Nursing staff offered to give his antibiotic dose early but he refused to stay long enough for it to infuse. He was offered prescription for outpatient antibiotics and refused. Please see nurse's notes but she reports that he was alert and oriented 3. When I saw him this morning he was also alert and oriented 3, he recognized that he was also hospital, but it was October and he remembered meeting me from the day before. Physical Exam Vital Signs: Temp Pulse Resp BP Pulse Ox 97.9 F 76 18 140/77 H 98 10/29/16 07:38 10/29/16 08:28 10/29/16 08:28 10/29/16 07:38 10/29/16 08:28 Intake & Output 10/28/16 10/29/16 10/30/16 06:59 06:59 06:59 Intake Total 1861 Output Total 1475 Balance 386 Weight 48.7 kg PHYSICAL EXAM GENERAL: NAD; well developed, well nourished; no obese; alert and oriented to person, place, time HEENT: normocephalic, atraumatic; PERRLA, no conjunctival injection, no scleral icterus; oral mucosa moist; neck supple, no LAD, normal ROM RESPIRATORY: Increased accessory muscle use, increased WOB, poor air entry bilaterally; diffuse wheezes, rales, & rhonchi; bilateral inspiratory crackles CARDIO: no JVD; RRR; 2/6 systolic murmur at the apex; borderline tachycardia VASCULAR: no carotid bruit; no abdominal bruit; no pallor; 2+ radial, DP pulse ; normal capillary refill GI: soft; nondistended; normal bowel sounds; no hepato spleno megaly; no rebound, rigidity, guarding; nontender NEURO: normal patella reflexes; MSK: 4/5 strength; normal ROM hips; ambulatory without assistance; no tenderness EXTREMITIES: no calf tender; no palpable cords in calf; no clubbing, cyanosis , pedal edema PSYCH: normal affect, normal mood SKIN: warm; moist; petechiae; telengectasias; no jaundice; no rash; plethoric and erythemic Results Laboratory Results: 10/29/16 04:29 10/29/16 04:29 10/29/16 10/29/16 04:29 04:29 WBC 4.8 RBC 4.01 L Hgb 11.3 L Hct 34.4 L MCV 86 MCH 28.3 MCHC 33.0 RDW 16.2 H Plt Count 160 Seg Neutrophils % 89.6 H Lymphocytes % 6.1 L Monocytes % 4.0 Eosinophils % 0.0 Basophils % 0.3 Absolute Neutrophils 4.3 Absolute Lymphocytes 0.3 L Absolute Monocytes 0.2 Absolute Eosinophils 0.0 Absolute Basophils 0.0 Sodium 128.1 L Potassium 4.9 Chloride 91 L Carbon Dioxide 31 H Anion Gap 6 BUN 7 Creatinine 0.53 Est GFR ( Amer) > 60 Est GFR (Non-Af Amer) > 60 Glucose 114 H Calcium 8.4 Phosphorus 4.7 H Magnesium 2.1 Total Bilirubin 0.6 AST 84 H ALT 73 H Alkaline Phosphatase 62 Total Protein 5.9 L Albumin 3.4 L Impressions: Chest X-Ray 10/28/16 08:07 IMPRESSION: NO ACUTE RADIOGRAPHIC FINDING IN THE CHEST. Abdomen Ultrasound 10/29/16 00:00 IMPRESSION: Suboptimal exam. No aneurysm in the visualized proximal segment of the abdominal aorta. The mid and distal abdominal aorta was obscured. If clinical concern persists for abdominal aortic aneurysm, further evaluation with CT can be obtained. Non visualization of the pancreas, left kidney and spleen. Fatty infiltration of the liver. No biliary ductal dilation. Distended urinary bladder. Qualifiers PATEINT BEING DISCHARGED WITH ANY OF THE FOLLOWING DIAGNOSIS?: No VTE patient discharged on overlapping Therapy?: Yes Plan Discharge Plan: Patient signed the appropriate paperwork and left AGAINST MEDICAL ADVICE before I could arrive to discuss with him.
[2016-10-30] MEDS ORDERED: LEVOFLOXACIN 750 MG TABLET PO SCH (12:00)
== END 2016-10-29 11:34 | disposition left against medical advice (07) | DRG 190 ==
LOC: ER 07:42 → EH 11:13 → UNDOADMIN 12:48 → 3W 12:49 → EH 12:49
PROVIDERS: ADMIT Internal Medicine; ATTEND Internal Medicine
PROC: 5A09357 Assistance with Respiratory Ventilation, Less than 24 Consecutive Hours, Continuous Positive Airway Pressure (ICD-10-PCS; principal; 2016-10-28)
PROC: 3E0F73Z Introduction of Anti-inflammatory into Respiratory Tract, Via Natural or Artificial Opening (ICD-10-PCS; 2016-10-28)
DX: J44.0 Chronic obstructive pulmonary disease with (acute) lower respiratory infection (principal); J96.21 Acute and chronic respiratory failure with hypoxia; E44.0 Moderate protein-calorie malnutrition; E87.1 Hypo-osmolality and hyponatremia; Z68.1 Body mass index [BMI] 19.9 or less, adult; J20.8 Acute bronchitis due to other specified organisms; J44.1 Chronic obstructive pulmonary disease with (acute) exacerbation; F10.20 Alcohol dependence, uncomplicated; Y90.3 Blood alcohol level of 60-79 mg/100 ml; F17.210 Nicotine dependence, cigarettes, uncomplicated; I25.10 Atherosclerotic heart disease of native coronary artery without angina pectoris; I10 Essential (primary) hypertension; E78.5 Hyperlipidemia, unspecified; J45.909 Unspecified asthma, uncomplicated; M19.90 Unspecified osteoarthritis, unspecified site; F32.9 Major depressive disorder, single episode, unspecified; I25.2 Old myocardial infarction; F41.9 Anxiety disorder, unspecified; Z91.19 Patient's noncompliance with other medical treatment and regimen; Z99.81 Dependence on supplemental oxygen; Z79.899 Other long term (current) drug therapy; Z82.61 Family history of arthritis; Z83.6 Family history of other diseases of the respiratory system; Z82.49 Family history of ischemic heart disease and other diseases of the circulatory system
CPT/HCPCS: 36415; 71010; 71020; 76700; 80048; 80053; 80307; 81001; 82140; 82550; 82553; 83735; 84100; 84484; 85025; 85730; 87040; 87070; 87205; 87804; 93005; 93010; 93976; 94640; 96361; 96372; 96374; 99281; 99285; J1650; J1956; J2060; J2920; J3490; J7030; J7120; J7620; S0028

== ENCOUNTER 2016-10-31 18:58 | Inpatient (IN) | payer MEDICARE, MEDICAID ==
[2016-10-31] MEDS ORDERED: ALBUTEROL SULFATE 0.083% NEB 2.5 MG/3 ML AMPUL NEB ONE (20:02)
[2016-10-31] MEDS ORDERED: IPRATROPIUM BROMIDE 0.02% NEB 0.5 MG/2.5 ML AMPUL NEB PRN (20:03)
[2016-10-31 20:32] LABS: ARTERIAL BLOOD BASE EXCESS 3.7 mmol/L; ARTERIAL BLOOD O2 SATURATION 98.2 % (94-98)
[2016-10-31 20:49] LABS: ABSOLUTE LYMPHOCYTES (AUTO) 1.1 10^3/uL (0.5-4.7); ABSOLUTE MONOCYTES (AUTO) 1.2 10^3/uL (0.1-1.4); ABSOLUTE NEUT (AUTO) 7.3 10^3/uL (1.7-8.2); BASOPHILS % (AUTO) 0.3 % (0-2); HEMATOCRIT 36.7 % (37.9-51.0); HEMOGLOBIN 12.4 g/dL (13.5-17.0); HGB HCT DIFFERENCE 0.5; LYMPHOCYTES % (AUTO) 11.5 % (13-45); MEAN CORPUSCULAR HEMOGLOBIN 28.7 pg (27.0-33.4); MEAN CORPUSCULAR HGB CONC 33.8 g/dL (32.0-36.0); MEAN CORPUSCULAR VOLUME 85 fl (80-97); MONOCYTES % (AUTO) 12.3 % (3-13); RED BLOOD COUNT 4.31 10^6/uL (4.35-5.55); RED CELL DISTRIBUTION WIDTH 16.6 % (11.5-14.0); SEGMENTED NEUTROPHILS % (AUTO) 75.9 % (42-78); WHITE BLOOD COUNT 9.6 10^3/uL (4.0-10.5)
[2016-10-31 21:07] LABS: ALCOHOL 145 mg/dL (NONE DETECTED); ANION GAP 9 (5-19); BLOOD UREA NITROGEN 4 mg/dL (7-20); CALCIUM 8.6 mg/dL (8.4-10.2); CARBON DIOXIDE 31 mmol/L (22-30); CHLORIDE 91 mmol/L (98-107); CREATININE RESULT 0.53 mg/dL (0.52-1.25); GLUCOSE 101 mg/dL (75-110); POTASSIUM 3.6 mmol/L (3.6-5.0); SODIUM 131.2 mmol/L (137-145)
[2016-10-31 21:19] LABS: CREATINE KINASE MB 6.51 ng/mL (<4.55)
[2016-10-31 21:22] LABS: TROPONIN I 0.065 ng/mL
[2016-10-31 21:24] LABS: APPEARANCE,URINE CLEAR; BILIRUBIN,URINE NEGATIVE (NEGATIVE); GLUCOSE, URINE NEGATIVE (NEGATIVE); KETONES,URINE NEGATIVE (NEGATIVE); LEUKOCYTE ESTERASE,URINE NEGATIVE (NEGATIVE); NITRITE,URINE NEGATIVE (NEGATIVE); PROTEIN,URINE NEGATIVE (NEGATIVE); URINE SPECIFIC GRAVITY 1.003; UROBILINOGEN,URINE NEGATIVE mg/dL (<2.0)
[2016-10-31 21:38] LABS: URINE BARBITURATES SCREEN NEGATIVE; URINE METHADONE SCREEN NEGATIVE; URINE OPIATES LOW NEGATIVE; URINE PHENCYCLIDINE SCREEN NEGATIVE
[2016-10-31] MEDS ORDERED: ASPIRIN 325 MG TABLET PO ONE (22:31)
[2016-10-31] MEDS ORDERED: METHYLPREDNISOLONE INJ 125 MG/2 ML SDV IV ONE (22:46)
[2016-10-31] MEDS ORDERED: LORAZEPAM 0.5 MG TABLET PO ONE (22:50)
--- NOTE | 2016-10-31 22:53 | ER Document Report ---
ED General - General Mode of Arrival: Medic Information source: Patient TRAVEL OUTSIDE OF THE [place] IN LAST 30 DAYS: No - HPI Patient complains to provider of: Difficulty Breathing Onset: Last week Onset/Duration: Gradual, Persistent Associated symptoms: Productive cough, Shortness of breath <CHELY MANCILLA - Last Filed: 10/31/16 23:39> <ENRIQUE GRAY - Last Filed: 11/05/16 13:19> - General Chief Complaint: Chest Pain Stated Complaint: CHEST DISCOMFORT Notes: Patient is a 61-year-old male presenting to the emergency department concerned of difficulty breathing. Since patient arrived, patient requested to leave. Patient was trying to get off the stretcher, but he was convinced to stay. Patient complains of difficulty breathing and chest pain. Patient states that he has been prescribed medications, but he misses doses of his medications almost daily. Patient does not know the year or his full address. Patient later mentioned that he is coughing up blood. (CHELY MANCILLA) - Related Data Allergies/Adverse Reactions: No Known Allergies Allergy (Verified 11/04/16 07:10) Past Medical History - General Information source: Patient - Social History Smoking Status: Current Every Day Smoker Frequency of alcohol use: Heavy Drug Abuse: None Family History: Reviewed & Not Pertinent, Arthritis, CAD, COPD, Other - Past Medical History Cardiac Medical History: Reports: Hx Coronary Artery Disease, Hx Heart Attack - ID occured in 2002. Takes ASA now, used to be on hypertensive medications, Hx Hypercholesterolemia, Hx Hypertension Pulmonary Medical History: Reports: Hx Asthma, Hx Bronchitis, Hx COPD, Hx Pneumonia Renal/ Medical History: Denies: Hx Peritoneal Dialysis Musculoskeltal Medical History: Reports Hx Arthritis, Reports Hx Musculoskeletal Deformity, Reports Hx Musculoskeletal Trauma Psychiatric Medical History: Reports: Hx Depression Traumatic Medical History: Reports: Hx Fractures - Left rib fractures with pneumothorax requiring chest tube on 05/23/2016 Past Surgical History: Reports: Hx Cardiac Catheterization - Immunizations Immunizations up to date: Yes Hx Diphtheria, Pertussis, Tetanus Vaccination: Yes Hx Pneumococcal Vaccination: 02/22/13 <CHELY MANCILLA - Last Filed: 10/31/16 23:39> Review of Systems - Review of Systems Constitutional: No symptoms reported EENT: No symptoms reported Cardiovascular: See HPI, Chest pain Respiratory: See HPI, Hurts to breathe, Short of breath, Wheezing Gastrointestinal: No symptoms reported Genitourinary: No symptoms reported Male Genitourinary: No symptoms reported Musculoskeletal: No symptoms reported Skin: No symptoms reported Hematologic/Lymphatic: No symptoms reported Neurological/Psychological: No symptoms reported -: Yes All other systems reviewed and negative <CHELY MANCILLA - Last Filed: 10/31/16 23:39> Physical Exam - General General appearance: Alert - HEENT Head: Normocephalic, Atraumatic Eyes: Normal Pupils: PERRL - Respiratory Respiratory status: Respiratory distress - Mild Chest status: Nontender Breath sounds: Rhonchi, Wheezing - Expiratory wheezes and rhonchi - Cardiovascular Rhythm: Tachycardia Heart sounds: Normal auscultation Murmur: No - Abdominal Inspection: Normal Distension: No distension Bowel sounds: Normal Tenderness: Nontender Organomegaly: No organomegaly - Back Back: Normal, Nontender - Neurological Neuro grossly intact: Yes Cognition: Other - Intoxicated Orientation: Disoriented to time, Disoriented to events. No: AAOx4 [place] Coma Scale Eye Opening: Spontaneous [place] Coma Scale Verbal: Oriented [place] Coma Scale Motor: Obeys Commands Federico Coma Scale Total: 15 - Psychological Associated symptoms: Agitated, Tearful - Skin Skin Temperature: Warm Skin Moisture: Dry Skin Color: Normal <CHELY MANCILLA - Last Filed: 10/31/16 23:39> Course - Laboratory Result Diagrams: 10/31/16 20:40 10/31/16 20:40 <CHELY MANCILLA - Last Filed: 10/31/16 23:39> - Laboratory Result Diagrams: 11/01/16 09:22 11/01/16 09:22 <ENRIQUE GRAY - Last Filed: 11/05/16 13:19> - Re-evaluation Re-evalutation: 10/31/16 22:53 I personally performed the services described in the documentation, reviewed and edited the documentation which was dictated to my scribe in my presence, and it accurately records my words and actions. presents emergency department via EMS chief plain chest pain or shortness of breath. Patient has a history of severe COPD on home oxygen smokes and is a chronic alcoholic he was admitted to the hospital for chest pain and COPD exacerbation 2 days ago but signed out AGAINST MEDICAL ADVICE. Studies had intermittent chest pain for the last 2 days he is not heavily intoxicated on alcohol is 140. He denies a history of going through withdrawal thinks he has stents placed in the past does not know who he sees for that is noncompliant on his medications. We spoke to his son he said he goes through periods where he drinks heavily stop taking all his medications and get sick. Initially on arrival patient was confused altered trying Aleve did not know his birthdate do not know what year it is. Place him on IVC and as he was attempting to leave saying he was given harm himself we have let him leave. Physical exam he is chronically ill-appearing severe shortness breath significantly improved with Solu-Medrol breathing treatments and oxygen. EKG does not show any acute ST segment elevation or depression CK-MB is elevated but troponin is nonacute. Chest x-ray is negative for acute pathology. We'll admit chest pain COPD exacerbation observation to Dr. Brown and further assessment. Patient now awake alert and oriented does not need IVC is willing to stay in the hospital. ( ENRIQUE GRAY) - Vital Signs Vital signs: Temp Pulse Resp BP Pulse Ox 97.2 F 97 18 123/66 98 11/01/16 12:54 11/01/16 12:54 11/01/16 12:54 11/01/16 12:54 11/01/16 12:54 (CHELY MANCILLA) (ENRIQUE GRAY) - Laboratory Laboratory results interpreted by mi: 10/31/16 10/31/16 10/31/16 20:15 20:40 20:40 RBC 4.31 L Hgb 12.4 L Hct 36.7 L RDW 16.6 H Lymphocytes % 11.5 L ABG pO2 108.8 H ABG HCO3 28.1 H ABG Total CO2 29.3 H ABG O2 Saturation 98.2 H Sodium 131.2 L Chloride 91 L Carbon Dioxide 31 H BUN 4 L CK-MB (CK-2) Salicylates < 1.0 L Acetaminophen < 10 L 10/31/16 20:40 RBC Hgb Hct RDW Lymphocytes % ABG pO2 ABG HCO3 ABG Total CO2 ABG O2 Saturation Sodium Chloride Carbon Dioxide BUN CK-MB (CK-2) 6.51 H Salicylates Acetaminophen (CHELY MANCILLA) (ENRIQUE GRAY) Critical Care Note - Critical Care Note Total time excluding time spent on procedures (mins): 45 <ENRIQUE GRAY - Last Filed: 11/05/16 13:19> Discharge <CHELY MANCILLA - Last Filed: 10/31/16 23:39> - Discharge Admitting Provider: Hospitalist Unit Admitted: Telemetry <ENRIQUE GRAY - Last Filed: 11/05/16 13:19> - Discharge Clinical Impression: COPD exacerbation Chest pain Qualifiers: Chest pain type: unspecified Qualified Code(s): R07.9 - Chest pain, unspecified Condition: Stable Disposition: ADMITTED INPATIENT Scribe Documentation - Scribe Written by Scribe:: Chely Mancilla 10/31/2016 [id number] acting as scribe for :: Dwayne <CHELY MANCILLA - Last Filed: 10/31/16 23:39>
[2016-10-31] MEDS ORDERED: ACETAMINOPHEN 325 MG TABLET PO PRN (23:32)
[2016-10-31] MEDS ORDERED: GUAIFENESIN SYRP 200 MG/10 ML UDC PO PRN (23:32)
[2016-10-31] MEDS ORDERED: IPRATROPIUM/ALBUTEROL 0.5-2.5 MG/3 ML AMPUL NEB PRN (23:32)
[2016-10-31] MEDS ORDERED: LORAZEPAM INJ 2 MG/1 ML VIAL IV PRN (23:32)
[2016-10-31] MEDS ORDERED: THIAMINE HCL INJ 200 MG/2 ML VIAL IV SCH (23:45)
[2016-10-31] MEDS ORDERED: CLOPIDOGREL BISULFATE 75 MG TABLET PO SCH (23:45)
[2016-10-31] MEDS ORDERED: FOLIC ACID INJ 5 MG/1 ML 10 ML VIAL IV SCH (23:45)
[2016-10-31] MEDS ORDERED: THIAMINE HCL 100 MG, FOLIC ACID 1 MG in NORMAL SALINE 50 ML IV SCH (23:45)
[2016-10-31] MEDS ORDERED: LEVOFLOXACIN 750 MG/D5W RTU 750 MG/150 ML RTUPB IV SCH (23:45)
[2016-11-01 03:29] LABS: CREATINE KINASE MB 4.02 ng/mL (<4.55)
[2016-11-01 03:35] LABS: TROPONIN I 0.05 ng/mL
--- NOTE | 2016-11-01 04:40 | PDOC H&P ---
History of Present Illness Admission Date/PCP: 10/31/16 23:32 Patient complains of: Shortness of breath History of Present Illness: LEIF NUÑEZ is a 61 year old male with a past medical history of severe alcohol dependence consuming approximately 2 cases of beer per day, severe COPD with persistent tobacco dependence, coronary artery disease with 2 stents remotely and recurrent AMA last occurring on October 28, 4 days ago. Primary complaint of shortness of breath and chest pain which is frequent and recurrent patient is intoxicated and unable to provide additional history. His workup is concerning for COPD exacerbation with unstable angina and pending DTs. He is referred to the hospitalist for admission. Patient denies any current medications or active chest pain Past Medical History Cardiac Medical History: Reports: Coronary Artery Disease, Myocardial Infarction - [place] occured in 2002. Takes ASA now, used to be on hypertensive medications, Hyperlipidema, Hypertension Pulmonary Medical History: Reports: Asthma, Bronchitis, Chronic Obstructive Pulmonary Disease (COPD), Pneumonia Musculoskeltal Medical History: Reports: Arthritis Psychiatric Medical History: Reports: Alcohol Dependency, Depression, Substance Abuse, Tobacco Dependency Past Surgical History Past Surgical History: Reports: Cardiac Catheterization Social History Smoking Status: Current Every Day Smoker Frequency of Alcohol Use: Heavy Hx Recreational Drug Use: No Drugs: None Hx Prescription Drug Abuse: No - Advance Directive Resuscitation Status: Full Code Family History Family History: Reviewed & Not Pertinent, Arthritis, CAD, COPD, Other Parental Family History Reviewed: Yes Children Family History Reviewed: Yes Sibling(s) Family History Reviewed.: Yes Medication/Allergy Home Medications: Albuterol Sulfate [Ventolin Hfa] 2 puff IH Q4HP PRN #17 gm 05/11/16 Budesonide/Formoterol Fumarate [Symbicort Hfa 160-4.5 Mcg Inhaler 6 gm] 2 puff IH Q12 06/02/16 Clopidogrel Bisulfate [Plavix 75 mg Tablet] 75 mg PO DAILY 06/02/16 Levothyroxine Sodium [Synthroid 0.075 mg Tablet] 0.075 mg PO DAILY 06/02/16 Lisinopril [Prinivil] 20 mg PO DAILY 06/02/16 Tiotropium [place] [Spiriva Respimat] 2 inh IH DAILY 06/02/16 Albuterol Sulfate [Albuterol Sulfate 2.5mg/3 mL] 1 vial IH TID 09/23/16 Alprazolam [Xanax 0.5 mg Tablet] 1 tab PO QHS 09/23/16 Ferrous Sulfate [Iron] 65 mg PO DAILY 09/23/16 Oxycodone HCl/Acetaminophen [Percocet 7.5-325 mg Tablet] 1 tab PO Q6H PRN Rosuvastatin Calcium [Crestor 20 mg Tablet] 1 tab PO DAILY 09/23/16 Multivitamin [Multivitamins] 1 each PO DAILY 10/28/16 Allergies/Adverse Reactions: No Known Allergies Allergy (Verified 10/28/16 08:02) Review of Systems ROS unobtainable: Due to mental status Physical Exam Vital Signs: Temp Pulse Resp BP Pulse Ox 98.4 F 94 17 114/68 95 11/01/16 04:17 10/31/16 19:35 11/01/16 04:01 11/01/16 04:01 11/01/16 04:01 General appearance: PRESENT: cooperative, disheveled, mild distress, thin Head exam: PRESENT: atraumatic, normocephalic Eye exam: PRESENT: conjunctiva pink, EOMI, PERRLA. ABSENT: scleral icterus Ear exam: PRESENT: normal external ear exam Teeth exam: PRESENT: dental caries Neck exam: ABSENT: carotid bruit, JVD, lymphadenopathy, thyromegaly Respiratory exam: PRESENT: accessory muscle use, crackles, decreased breath sounds, prolonged expiratory phas, rales, symmetrical, tachypnea. ABSENT: rhonchi, wheezes Cardiovascular exam: PRESENT: RRR. ABSENT: diastolic murmur, rubs, systolic murmur Pulses: PRESENT: normal dorsalis pedis pul Vascular exam: PRESENT: normal capillary refill GI/Abdominal exam: PRESENT: normal bowel sounds, soft. ABSENT: distended, guarding, mass, organolmegaly, rebound, tenderness Rectal exam: PRESENT: deferred Extremities exam: PRESENT: full ROM, other - Multiple skin tears to the upper extremity bilaterally. ABSENT: calf tenderness, clubbing, pedal edema Neurological exam: PRESENT: alert, altered, oriented to person, oriented to place, CN II-XII grossly intact Psychiatric exam: PRESENT: agitated Skin exam: PRESENT: abrasion, skin tears Results Laboratory Results: 11/01/16 11/01/16 02:52 02:52 Creatine Kinase 151 CK-MB (CK-2) 4.02 Troponin I 0.050 Impressions: Chest X-Ray 10/31/16 19:50 IMPRESSION: NO ACUTE RADIOGRAPHIC FINDING IN THE CHEST. Assessment & Plan - Diagnosis (1) Acute and chronic respiratory failure with hypoxia Is this a current diagnosis for this admission?: YesPlan: Admitted to the ICU for pending alcohol withdrawal DTs collocated by COPD exacerbation he'll be receiving BiPAP, empiric antibiotics, albuterol and Atrovent, consideration of steroids and reevaluation of labs (2) Alcohol withdrawal Qualifiers: Complication of substance-induced condition: uncomplicated Qualified Code(s): F10.230 - Alcohol dependence with withdrawal, uncomplicated Is this a current diagnosis for this admission?: YesPlan: He habitually drinks 2 cases of beer per day and has had multiple episodes of alcohol withdrawal DTs in the recent past to be admitted to the ICU for anticipated decompensation he is placed on thiamine and Ativan. (3) Chest pain Qualifiers: Chest pain type: unspecified Qualified Code(s): R07.9 - Chest pain, unspecified Is this a current diagnosis for this admission?: YesPlan: Evaluate for acute coronary syndrome and risk factors for coronary artery disease consider stress testing - Time Time Spent: 30 to 50 Minutes
[2016-11-01] MEDS ORDERED: LANSOPRAZOLE 15 MG TAB.RAP.DR PO SCH (06:00)
[2016-11-01] MEDS ORDERED: HEPARIN SOD (PORCINE) 5,000 UNIT/ML 1 ML SYRINGE SUBCUT SCH (06:00)
[2016-11-01] MEDS: IPRATROPIUM/ALBUTEROL 0.5-2.5 MG/3 ML AMPUL NEB SCH ×2 (08:11→13:36)
[2016-11-01] MEDS ORDERED: LORAZEPAM INJ 2 MG/1 ML VIAL IV ONE (08:30)
[2016-11-01 09:38] LABS: ABSOLUTE LYMPHOCYTES (AUTO) 0.4 10^3/uL (0.5-4.7); ABSOLUTE MONOCYTES (AUTO) 0.2 10^3/uL (0.1-1.4); ABSOLUTE NEUT (AUTO) 6.8 10^3/uL (1.7-8.2); BASOPHILS % (AUTO) 0.5 % (0-2); HEMOGLOBIN 11.4 g/dL (13.5-17.0); HGB HCT DIFFERENCE 0.2; LYMPHOCYTES % (AUTO) 5.3 % (13-45); MEAN CORPUSCULAR HEMOGLOBIN 28.5 pg (27.0-33.4); MEAN CORPUSCULAR HGB CONC 33.4 g/dL (32.0-36.0); MEAN CORPUSCULAR VOLUME 86 fl (80-97); MONOCYTES % (AUTO) 2.4 % (3-13); RED BLOOD COUNT 3.98 10^6/uL (4.35-5.55); RED CELL DISTRIBUTION WIDTH 16.4 % (11.5-14.0); SEGMENTED NEUTROPHILS % (AUTO) 91.8 % (42-78); WHITE BLOOD COUNT 7.5 10^3/uL (4.0-10.5)
[2016-11-01 10:00] LABS: ANION GAP 5 (5-19); BLOOD UREA NITROGEN 8 mg/dL (7-20); CALCIUM 8.5 mg/dL (8.4-10.2); CARBON DIOXIDE 31 mmol/L (22-30); CHLORIDE 93 mmol/L (98-107); CREATINE KINASE 103 U/L (55-170); GLUCOSE 136 mg/dL (75-110); POTASSIUM 4.5 mmol/L (3.6-5.0); SODIUM 129.1 mmol/L (137-145)
[2016-11-01] MEDS ORDERED: CLOPIDOGREL BISULFATE 75 MG TABLET PO SCH (10:00)
[2016-11-01 10:12] LABS: CREATINE KINASE MB 3.22 ng/mL (<4.55); TROPONIN I 0.03 ng/mL
--- NOTE | 2016-11-01 11:17 | EKG REPORT ---
SEVERITY:- NORMAL ECG - SINUS RHYTHM : Confirmed by: Renee Gill 01-Nov-2016 11:17:18
[2016-11-01] MEDS ORDERED: LORAZEPAM INJ 2 MG/1 ML VIAL IV SCH ×2 (12:00)
[2016-11-01 12:56] VITALS: BP 123/66
--- NOTE | 2016-11-01 14:17 | PDOC DISCHARGE SUMMARY ---
General - Admit/Disc Date/PCP Admission Date/Primary Care Provider: 10/31/16 23:32 Discharge Date: 11/01/16 - Discharge Diagnosis (1) Chest pain Is this a current diagnosis for this admission?: YesSummary: Patient initially presented with complaints of chest pain but this resolved once he was sober. (2) Coronary atherosclerosis Is this a current diagnosis for this admission?: Yes (3) Alcohol abuse Is this a current diagnosis for this admission?: YesSummary: The patient was intoxicated when he presented. At The time of my exam he was alert and oriented 4 and was not intoxicated.. He reports that he is back to his baseline and wishes to be discharged home. Patient reports that if I didn' t discharge him he would leave AMA any how. (4) COPD (chronic obstructive pulmonary disease) Is this a current diagnosis for this admission?: YesSummary: Patient initially presented with some wheezing. The time of my exam however all of his respiratory problems had resolved. - Additional Information Resuscitation Status: Full Code Discharge Diet: Cardiac Discharge Activity: Activity As Tolerated Home Medications: Clopidogrel Bisulfate [Plavix 75 mg Tablet] 75 mg PO DAILY tablet 11/01/16 History of Present Illness History of Present Illness: LEIF NUÑEZ is a 61 year old male who has been admitted several times over the last several years and always leaves AMA. He presented with some shortness of breath and possible chest pain. He was intoxicated at the time however. The patient is unable to give much more history than that. He is admitted for presumed COPD and chest pain. Hospital Course Hospital Course: 61-year-old alcoholic who has a history of coronary disease as well as COPD who presented with complaints of shortness of breath and chest pain. Patient however was intoxicated. The time my exam the patient was no longer intoxicated and was alert and oriented 4. He does not have any chest pain and denied any shortness of breath. Patient reported that he wanted to go home and would leave AMA if I did not discharge him. He had negative cardiac enzymes and on exam had no wheezing and there was no reason to keep him. He was alert and oriented and competent to make decisions. Physical Exam Vital Signs: Temp Pulse Resp BP Pulse Ox 97.2 F 97 18 123/66 98 11/01/16 12:54 11/01/16 12:54 11/01/16 12:54 11/01/16 12:54 11/01/16 12:54 Intake & Output 10/31/16 11/01/16 11/02/16 06:59 06:59 06:59 Weight 49.4 kg General appearance: PRESENT: no acute distress, well-developed, well-nourished Head exam: PRESENT: atraumatic, normocephalic Eye exam: PRESENT: conjunctiva pink, EOMI, PERRLA. ABSENT: scleral icterus Ear exam: PRESENT: normal external ear exam Mouth exam: PRESENT: moist, tongue midline Neck exam: ABSENT: carotid bruit, JVD, lymphadenopathy, thyromegaly Respiratory exam: PRESENT: clear to auscultation trudy. ABSENT: rales, rhonchi, wheezes Cardiovascular exam: PRESENT: RRR. ABSENT: diastolic murmur, rubs, systolic murmur GI/Abdominal exam: PRESENT: normal bowel sounds, soft. ABSENT: distended, guarding, mass, organolmegaly, rebound, tenderness Extremities exam: ABSENT: calf tenderness, clubbing, pedal edema Neurological exam: PRESENT: alert, awake, oriented to person, oriented to place , oriented to time, oriented to situation Psychiatric exam: PRESENT: appropriate affect Skin exam: PRESENT: dry, intact, warm. ABSENT: cyanosis, rash Results Laboratory Results: 11/01/16 09:22 11/01/16 09:22 11/01/16 11/01/16 09:22 09:22 WBC 7.5 RBC 3.98 L Hgb 11.4 L Hct 34.0 L MCV 86 MCH 28.5 MCHC 33.4 RDW 16.4 H Plt Count 179 Seg Neutrophils % 91.8 H Lymphocytes % 5.3 L Monocytes % 2.4 L Eosinophils % 0.0 Basophils % 0.5 Absolute Neutrophils 6.8 Absolute Lymphocytes 0.4 L Absolute Monocytes 0.2 Absolute Eosinophils 0.0 Absolute Basophils 0.0 Sodium 129.1 L Potassium 4.5 Chloride 93 L Carbon Dioxide 31 H Anion Gap 5 BUN 8 Creatinine 0.50 L Est GFR ( Amer) > 60 Est GFR (Non-Af Amer) > 60 Glucose 136 H Calcium 8.5 11/01/16 11/01/16 11/01/16 02:52 02:52 09:22 Creatine Kinase 151 103 CK-MB (CK-2) 4.02 Troponin I 0.050 11/01/16 09:22 Creatine Kinase CK-MB (CK-2) 3.22 Troponin I 0.030 Impressions: Chest X-Ray 10/31/16 19:50 IMPRESSION: NO ACUTE RADIOGRAPHIC FINDING IN THE CHEST. Qualifiers PATEINT BEING DISCHARGED WITH ANY OF THE FOLLOWING DIAGNOSIS?: No Plan Discharge Plan: Patient is discharged home in stable condition. He is encouraged to quit smoking and quit drinking however the patient reports that he is not interested in stopping either at this time. Time Spent: Less than 30 Minutes
[2016-11-01] MEDS ORDERED: THIAMINE HCL 100 MG, FOLIC ACID 1 MG in NORMAL SALINE 50 ML IV SCH (22:00)
[2016-11-01] MEDS ORDERED: LEVOFLOXACIN 750 MG/D5W RTU 750 MG/150 ML RTUPB IV SCH (22:00)
== END 2016-11-01 14:01 | disposition home or self-care (01) | DRG 190 ==
LOC: ER 18:58 → EH 23:18 → UNDOADMIN 23:18 → EH 23:32 → 3S 11-01 10:20
PROVIDERS: ADMIT Internal Medicine; ATTEND Internal Medicine
DX: J44.1 Chronic obstructive pulmonary disease with (acute) exacerbation (principal); J96.21 Acute and chronic respiratory failure with hypoxia; F10.239 Alcohol dependence with withdrawal, unspecified; Z68.1 Body mass index [BMI] 19.9 or less, adult; F10.229 Alcohol dependence with intoxication, unspecified; Y90.6 Blood alcohol level of 120-199 mg/100 ml; R07.9 Chest pain, unspecified; I25.10 Atherosclerotic heart disease of native coronary artery without angina pectoris; E78.5 Hyperlipidemia, unspecified; I10 Essential (primary) hypertension; F17.210 Nicotine dependence, cigarettes, uncomplicated; I25.2 Old myocardial infarction; Z91.14 Patient's other noncompliance with medication regimen; Z79.01 Long term (current) use of anticoagulants; Z79.51 Long term (current) use of inhaled steroids; Z79.899 Other long term (current) drug therapy
CPT/HCPCS: 36415; 36600; 71010; 80048; 80307; 81001; 82550; 82553; 82803; 83880; 84484; 85025; 93005; 93010; 94640; 99291; J1644; J1956; J2060; J2930; J3411; J3490; J7620

== ENCOUNTER 2016-11-04 06:40 | Emergency (ER) | payer MEDICARE, MEDICAID ==
[2016-11-04] MEDS ORDERED: METHYLPREDNISOLONE INJ 125 MG/2 ML SDV IV ONE (06:50)
[2016-11-04] MEDS ORDERED: IPRATROPIUM/ALBUTEROL 0.5-2.5 MG/3 ML AMPUL NEB ONE (06:50)
[2016-11-04] MEDS ORDERED: NORMAL SALINE 1000 ML 1,000 ML IV ONE (06:54)
[2016-11-04 07:12] LABS: ABSOLUTE LYMPHOCYTES (AUTO) 1.4 10^3/uL (0.5-4.7); ABSOLUTE MONOCYTES (AUTO) 1.9 10^3/uL (0.1-1.4); ABSOLUTE NEUT (AUTO) 6.8 10^3/uL (1.7-8.2); BASOPHILS % (AUTO) 0.3 % (0-2); EOSINOPHILS % (AUTO) 0.4 % (0-6); HEMATOCRIT 39.9 % (37.9-51.0); HEMOGLOBIN 13.3 g/dL (13.5-17.0); LYMPHOCYTES % (AUTO) 13.9 % (13-45); MEAN CORPUSCULAR HEMOGLOBIN 28.5 pg (27.0-33.4); MEAN CORPUSCULAR HGB CONC 33.3 g/dL (32.0-36.0); MEAN CORPUSCULAR VOLUME 85 fl (80-97); RED BLOOD COUNT 4.67 10^6/uL (4.35-5.55); RED CELL DISTRIBUTION WIDTH 16.6 % (11.5-14.0); SEGMENTED NEUTROPHILS % (AUTO) 66.4 % (42-78); VENOUS BLOOD HCO3 27.8 mmol/L (20-32); VENOUS BLOOD PCO2 43.2 mmHg (35-63); VENOUS BLOOD PH 7.43 (7.30-7.42); WHITE BLOOD COUNT 10.2 10^3/uL (4.0-10.5)
[2016-11-04 07:14] VITALS: BP 119/79
[2016-11-04] MEDS ORDERED: LIDOCAINE 5% (700 MG) TRANSDERMAL ADH..PATCH TP ONE (07:26)
[2016-11-04 07:31] LABS: ALANINE AMINOTRANSFERASE 52 U/L (21-72); ALBUMIN 4.3 g/dL (3.5-5.0); ALKALINE PHOSPHATASE 79 U/L (38-126); ANION GAP 10 (5-19); ASPARTATE AMINO TRANSFERASE 46 U/L (17-59); BILIRUBIN,TOTAL 0.5 mg/dL (0.2-1.3); BLOOD UREA NITROGEN 6 mg/dL (7-20); CALCIUM 8.9 mg/dL (8.4-10.2); CARBON DIOXIDE 28 mmol/L (22-30); CHLORIDE 89 mmol/L (98-107); CREATININE RESULT 0.52 mg/dL (0.52-1.25); GLUCOSE 90 mg/dL (75-110); MAGNESIUM 1.9 mg/dL (1.6-2.3); POTASSIUM 3.7 mmol/L (3.6-5.0); SODIUM 127.2 mmol/L (137-145)
[2016-11-04] MEDS: ALBUTEROL SULFATE 0.083% NEB 2.5 MG/3 ML AMPUL NEB SCH (07:31)
[2016-11-04 07:54] LABS: APPEARANCE,URINE CLEAR; BILIRUBIN,URINE NEGATIVE (NEGATIVE); GLUCOSE, URINE NEGATIVE (NEGATIVE); KETONES,URINE NEGATIVE (NEGATIVE); LEUKOCYTE ESTERASE,URINE NEGATIVE (NEGATIVE); NITRITE,URINE NEGATIVE (NEGATIVE); PROTEIN,URINE NEGATIVE (NEGATIVE); URINE SPECIFIC GRAVITY 1.003; UROBILINOGEN,URINE NEGATIVE mg/dL (<2.0)
[2016-11-04] MEDS ORDERED: ALBUTEROL SULFATE HFA (90 MCG/PUFF) 8 GM MDI (1 MDI/ER DISP) IH ONE (08:22)
--- NOTE | 2016-11-04 08:24 | ER Document Report ---
ED General - General Chief Complaint: Breathing Difficulty Stated Complaint: DIFFICULTY BREATHING TRAVEL OUTSIDE OF THE [place] IN LAST 30 DAYS: No - HPI Patient complains to provider of: difficulty breathing Notes: Patient is very familiar to this facility in with history of alcohol abuse and COPD exacerbations. Patient called EMS this morning for difficulty in breathing. Patient was found front porch performing a nebulizer treatment transported to the ER. Patient was recently admitted to the hospital for COPD exacerbation recently discharged. Patient states this morning workup smoking have some shortness of breath took me about treatment no improvement therefore came to ER for further evaluation. Patient also has a history of coming in to the ER by bloods signing out AGAINST MEDICAL ADVICE or eloping within 5-10 minutes of arriving to the ER. Upon my evaluation the patient patient did have some wheezing patient did smell heavily of tobacco smoke. Patient states at this time he will like to stay for further evaluation treatment agrees with our plan to give medications draw lab work and perform testing. Patient states that he does not feel like signing out AGAINST MEDICAL ADVICE or eloping at this time. Denies fevers chills nausea vomiting - Related Data Allergies/Adverse Reactions: No Known Allergies Allergy (Verified 11/04/16 07:10) Past Medical History - Social History Smoking Status: Current Every Day Smoker Family History: Reviewed & Not Pertinent, Arthritis, CAD, COPD, Other - Past Medical History Cardiac Medical History: Reports: Hx Coronary Artery Disease, Hx Heart Attack - [place] occured in 2002. Takes ASA now, used to be on hypertensive medications, Hx Hypercholesterolemia, Hx Hypertension Pulmonary Medical History: Reports: Hx Asthma, Hx Bronchitis, Hx COPD, Hx Pneumonia Renal/ Medical History: Denies: Hx Peritoneal Dialysis Musculoskeltal Medical History: Reports Hx Arthritis, Reports Hx Musculoskeletal Deformity, Reports Hx Musculoskeletal Trauma Psychiatric Medical History: Reports: Hx Depression Traumatic Medical History: Reports: Hx Fractures - Left rib fractures with pneumothorax requiring chest tube on 05/23/2016 Past Surgical History: Reports: Hx Cardiac Catheterization - Immunizations Immunizations up to date: Yes Hx Diphtheria, Pertussis, Tetanus Vaccination: - unknown Hx Pneumococcal Vaccination: 02/22/13 Review of Systems - Review of Systems Constitutional: No symptoms reported EENT: No symptoms reported Cardiovascular: No symptoms reported Respiratory: Short of breath, Wheezing Gastrointestinal: No symptoms reported Genitourinary: No symptoms reported Male Genitourinary: No symptoms reported Musculoskeletal: No symptoms reported Skin: No symptoms reported Hematologic/Lymphatic: No symptoms reported Neurological/Psychological: No symptoms reported -: Yes All other systems reviewed and negative Physical Exam - Vital signs Vitals: Resp Pulse Ox 16 99 11/04/16 06:42 11/04/16 06:42 Interpretation: Normal - General General appearance: Appears well, Alert - HEENT Head: Normocephalic, Atraumatic Eyes: Normal Pupils: PERRL - Respiratory Respiratory status: No respiratory distress Chest status: Nontender Breath sounds: Wheezing Chest palpation: Normal - Cardiovascular Rhythm: Regular Heart sounds: Normal auscultation Murmur: No - Abdominal Inspection: Normal Distension: No distension Bowel sounds: Normal Tenderness: Nontender Organomegaly: No organomegaly - Back Back: Normal, Nontender - Extremities General upper extremity: Normal inspection, Nontender, Normal color, Normal ROM , Normal temperature General lower extremity: Normal inspection, Nontender, Normal color, Normal ROM , Normal temperature, Normal weight bearing. No: Sylvia's sign - Neurological Neuro grossly intact: Yes Cognition: Normal Orientation: AAOx4 Federico Coma Scale Eye Opening: Spontaneous [place] Coma Scale Verbal: Oriented [place] Coma Scale Motor: Obeys Commands [place] Coma Scale Total: 15 Speech: Normal Motor strength normal: LUE, RUE, LLE, RLE Sensory: Normal - Psychological Associated symptoms: Normal affect, Normal mood - Skin Skin Temperature: Warm Skin Moisture: Dry Skin Color: Normal Course - Re-evaluation Re-evalutation: 11/04/16 08:37 Notified by nursing staff that the patient received breathing treatment that he will let sign out AGAINST MEDICAL ADVICE and leave. I did confront the patient patient states understanding of the risk involved. Patient is asking for an inhaler. Otherwise patient is time is in no acute distress patient is alert and oriented they will make his own medical decisions. Educated patient about the bad choices that he is making darcy smoke and having COPD. Patient states understanding patient was signed out AGAINST MEDICAL ADVICE. - Vital Signs Vital signs: Temp Pulse Resp BP Pulse Ox 98.0 F 22 H 119/79 97 11/04/16 08:00 11/04/16 08:00 11/04/16 07:01 11/04/16 08:00 - Laboratory Result Diagrams: 11/04/16 06:45 11/04/16 06:45 Laboratory results interpreted by me: 0211/04/16 11/04/16 06:45 06:45 06:45 Hgb 13.3 L RDW 16.6 H Monocytes % 19.0 H Absolute Monocytes 1.9 H VBG pH 7.43 H Sodium 127.2 L Chloride 89 L BUN 6 L Discharge - Discharge Clinical Impression: Hyponatremia, Tobacco abuse COPD (chronic obstructive pulmonary disease) Qualifiers: COPD type: unspecified COPD Qualified Code(s): J44.9 - Chronic obstructive pulmonary disease, unspecified Condition: Good Disposition: AGAINST MEDICAL ADVICE Instructions: Hyponatremia ([facility]), Chronic Obstructive Lung Disease ([facility]) Additional Instructions: Your leaving AGAINST MEDICAL ADVICE. I would highly recommend she stay in ER for further the evaluation treatments. He stated understanding of the risk involved. Please follow-up with your Dr. take the inhaler that we gave you here in ER 2 puffs every 4 hours for the next 5 days. Stop smoking Prescriptions: Prednisone [Deltasone 20 mg Tablet] 3 tab PO DAILY 5 Days Forms: Smoking Cessation Education Referrals: LESLY BRYAN MD [Primary Care Provider] - Follow up tomorrow
--- NOTE | 2016-11-04 10:38 | EKG REPORT ---
SEVERITY:- ABNORMAL ECG - SINUS TACHYCARDIA RIGHT ATRIAL ABNORMALITY PROBABLE INFERIOR INFARCT, OLD : Confirmed by: Renee Gill 04-Nov-2016 10:38:05
== END 2016-11-04 08:30 | disposition left against medical advice (07) ==
LOC: ER 06:40
DX: J44.9 Chronic obstructive pulmonary disease, unspecified (principal); J45.909 Unspecified asthma, uncomplicated; E87.1 Hypo-osmolality and hyponatremia; F17.200 Nicotine dependence, unspecified, uncomplicated; R06.02 Shortness of breath; I25.10 Atherosclerotic heart disease of native coronary artery without angina pectoris; I25.2 Old myocardial infarction; I10 Essential (primary) hypertension; Z87.01 Personal history of pneumonia (recurrent); Z53.20 Procedure and treatment not carried out because of patient's decision for unspecified reasons
CPT/HCPCS: 93005; 94640 ×2; 99285; 96360; 36415; 87040; 83735; 85025; 80053; 81001; 82803; 71010; 93010; J7030; A9270 ×2; J3490; J7620

== ENCOUNTER 2016-11-30 13:33 | Emergency (ER) | payer MEDICARE, MEDICAID ==
[2016-11-30] MEDS ORDERED: ASPIRIN 81 MG TABLET, CHEWABLE PO ONE (13:45)
[2016-11-30] MEDS ORDERED: MAGNESIUM SULFATE/D5W 100 ML IV ONE (14:03)
[2016-11-30] MEDS ORDERED: ALBUTEROL SULFATE HFA (90 MCG/PUFF) 8 GM MDI (1 MDI/ER DISP) IH ONE (14:30)
[2016-11-30] MEDS ORDERED: PREDNISONE 20 MG TABLET PO ONE (14:30)
[2016-11-30] MEDS ORDERED: SULFAMETHOXAZOLE/TRIMETHOPRIM 800-160 MG TABLET PO ONE (14:30)
[2016-11-30] MEDS ORDERED: AMOXICILLIN TRIHYDRATE 500 MG CAPSULE PO ONE (14:33)
--- NOTE | 2016-11-30 14:38 | ER Document Report ---
ED General - General Chief Complaint: Shortness Of Breath Stated Complaint: RESPIRATORY DISTRESS TRAVEL OUTSIDE OF THE [place] IN LAST 30 DAYS: No - HPI Patient complains to provider of: difficulty breathing Notes: Patient is very well known to this department multiple visits for I call abuse difficulty in breathing. Patient called EMS out today due to difficulty breathing was requesting to steroids however patient was transported. Upon my evaluation patient is are received IV steroids and breathing treatments and is feeling much better. Patient is requesting to leave. Patient denies fevers chills denies nausea vomiting chest pain abdominal pain. Patient states that he is continuing to smoke however has not drank anything in approximately last week week and a half - Related Data Allergies/Adverse Reactions: No Known Allergies Allergy (Verified 11/04/16 07:10) Past Medical History - Social History Smoking Status: Current Every Day Smoker Family History: Reviewed & Not Pertinent, Arthritis, CAD, COPD, Other - Past Medical History Cardiac Medical History: Reports: Hx Coronary Artery Disease, Hx Heart Attack - [place] occured in 2002. Takes ASA now, used to be on hypertensive medications, Hx Hypercholesterolemia, Hx Hypertension Pulmonary Medical History: Reports: Hx Asthma, Hx Bronchitis, Hx COPD, Hx Pneumonia Renal/ Medical History: Denies: Hx Peritoneal Dialysis Musculoskeltal Medical History: Reports Hx Arthritis, Reports Hx Musculoskeletal Deformity, Reports Hx Musculoskeletal Trauma Psychiatric Medical History: Reports: Hx Depression Traumatic Medical History: Reports: Hx Fractures - Left rib fractures with pneumothorax requiring chest tube on 05/23/2016 Past Surgical History: Reports: Hx Cardiac Catheterization - Immunizations Immunizations up to date: Yes Hx Diphtheria, Pertussis, Tetanus Vaccination: - unknown Hx Pneumococcal Vaccination: 02/22/13 Review of Systems - Review of Systems Constitutional: No symptoms reported EENT: No symptoms reported Cardiovascular: No symptoms reported Respiratory: Cough, Short of breath, Wheezing Gastrointestinal: No symptoms reported Genitourinary: No symptoms reported Male Genitourinary: No symptoms reported Musculoskeletal: No symptoms reported Skin: No symptoms reported Hematologic/Lymphatic: No symptoms reported Neurological/Psychological: No symptoms reported Physical Exam - Vital signs Vitals: Pulse Ox 98 11/30/16 14:05 Interpretation: Normal - General General appearance: Appears well, Alert - HEENT Head: Normocephalic, Atraumatic Eyes: Normal Pupils: PERRL - Respiratory Respiratory status: No respiratory distress Chest status: Nontender Breath sounds: Normal Chest palpation: Normal - Cardiovascular Rhythm: Regular Heart sounds: Normal auscultation Murmur: No - Abdominal Inspection: Normal Distension: No distension Bowel sounds: Normal Tenderness: Nontender Organomegaly: No organomegaly - Back Back: Normal, Nontender - Extremities General upper extremity: Normal inspection, Nontender, Normal color, Normal ROM , Normal temperature General lower extremity: Normal inspection, Nontender, Normal color, Normal ROM , Normal temperature, Normal weight bearing. No: Sylvia's sign - Neurological Neuro grossly intact: Yes Cognition: Normal Orientation: AAOx4 Federico Coma Scale Eye Opening: Spontaneous [place] Coma Scale Verbal: Oriented [place] Coma Scale Motor: Obeys Commands Feder[place] Coma Scale Total: 15 Speech: Normal Motor strength normal: LUE, RUE, LLE, RLE Sensory: Normal - Psychological Associated symptoms: Normal affect, Normal mood - Skin Skin Temperature: Warm Skin Moisture: Dry Skin Color: Normal Course - Re-evaluation Re-evalutation: 11/30/16 18:58 Patient name [facility] with pulse ox staying at 80% with the patient's history of chronic smoking more likely this patient's baseline. And concerned about the sputum production however patient states more likely cannot afford any treatment antibiotics therefore I will start the patient on amoxicillin. Patient was encouraged pick this up local drugstore that is $4. Patient will be given prednisone will be given another albuterol inhaler. Patient refuses stay for any further evaluation and agree to sign out AGAINST MEDICAL ADVICE. Patient will be discharged home - Vital Signs Vital signs: Temp Pulse Resp BP Pulse Ox 99.8 F 28 H 167/72 H 88 L 11/30/16 14:16 11/30/16 14:16 11/30/16 14:16 11/30/16 14:30 Discharge - Discharge Clinical Impression: COPD exacerbation, Left against medical advice Condition: Good Disposition: HOME, SELF-CARE Instructions: Chronic Obstructive Lung Disease ([facility]), Bronchitis With Bronchospasm (Wheezing) ([facility]) Additional Instructions: You have decided not to proceed with further recommended testing or treatment to determine the cause of their symptoms. The risks and alternatives to the recommendation were discussed and you voiced understanding. You appears clinically to have capacity to make this decision. You can return to the ER at any time to complete the testing or treatment.. Please take the steroids as prescribed please take antibiotics as prescribed please take the inhaler 2 puffs every 4 hours Prescriptions: Albuterol Sulfate [Proair HFA] 1 - 2 puff IH Q4 PRN #1 inhaler PRN Reason: Amoxicillin Trihydrate [Amoxil 500 mg Capsule] 500 mg PO TID #30 cap Prednisone [Deltasone 20 mg Tablet] 3 tab PO DAILY 5 Days Forms: Smoking Cessation Education, Return to Work
[2016-11-30 15:08] VITALS: BP 167/72
--- NOTE | 2016-12-01 16:06 | EKG REPORT ---
SEVERITY:- BORDERLINE ECG - SINUS TACHYCARDIA CONSIDER INFERIOR INFARCT : Confirmed by: Sruthi Rivas MD 01-Dec-2016 16:05:29
== END 2016-11-30 14:45 | disposition left against medical advice (07) ==
LOC: ER 13:33
DX: J44.1 Chronic obstructive pulmonary disease with (acute) exacerbation (principal); R05 Cough; R06.02 Shortness of breath; F17.200 Nicotine dependence, unspecified, uncomplicated; I25.10 Atherosclerotic heart disease of native coronary artery without angina pectoris; I25.2 Old myocardial infarction; I10 Essential (primary) hypertension; Z87.01 Personal history of pneumonia (recurrent); Z82.5 Family history of asthma and other chronic lower respiratory diseases; Z53.20 Procedure and treatment not carried out because of patient's decision for unspecified reasons
CPT/HCPCS: 93005; 99285; 71010; 93010; A9270 ×3; J3490; J7512

== ENCOUNTER 2016-12-18 17:07 | Emergency (ER) | payer MEDICARE, MEDICAID | END 2016-12-18 17:31 | disposition left against medical advice (07) | LOC: ER 17:07 | DX: Z53.9 Procedure and treatment not carried out, unspecified reason (principal); R06.02 Shortness of breath ==

== ENCOUNTER 2016-12-19 09:24 | Emergency (ER) | payer MEDICARE, MEDICAID ==
--- NOTE | 2016-12-19 09:38 | ER Document Report ---
ED Respiratory Problem - General Stated Complaint: DIFFICULTY BREATHING TRAVEL OUTSIDE OF THE [place] IN LAST 30 DAYS: No - HPI Notes: Patient arrived via EMS with complaints of respiratory distress. Patient has a known history of COPD and is seen in the emergency department quite often. I was informed by the nursing staff that the patient is leaving without being seen by a provider. I have not evaluated this patient and he will be leaving the emergency department without evaluation. - Related Data Allergies/Adverse Reactions: No Known Allergies Allergy (Verified 12/18/16 17:30) Past Medical History - Social History Smoking Status: Unknown if Ever Smoked Family History: Reviewed & Not Pertinent, Arthritis, CAD, COPD, Other - Past Medical History Cardiac Medical History: Reports: Hx Coronary Artery Disease, Hx Heart Attack - [place] occured in 2002. Takes ASA now, used to be on hypertensive medications, Hx Hypercholesterolemia, Hx Hypertension Pulmonary Medical History: Reports: Hx Asthma, Hx Bronchitis, Hx COPD, Hx Pneumonia Renal/ Medical History: Denies: Hx Peritoneal Dialysis Musculoskeltal Medical History: Reports Hx Arthritis, Reports Hx Musculoskeletal Deformity, Reports Hx Musculoskeletal Trauma Psychiatric Medical History: Reports: Hx Depression Traumatic Medical History: Reports: Hx Fractures - Left rib fractures with pneumothorax requiring chest tube on 05/23/2016 Past Surgical History: Reports: Hx Cardiac Catheterization - Immunizations Immunizations up to date: Yes Hx Diphtheria, Pertussis, Tetanus Vaccination: - unknown Hx Pneumococcal Vaccination: 02/22/13
[2016-12-19 09:47] VITALS: BP 141/76
== END 2016-12-19 09:34 | disposition left against medical advice (07) ==
LOC: ER 09:24
DX: Z53.21 Procedure and treatment not carried out due to patient leaving prior to being seen by health care provider (principal)

== ENCOUNTER 2016-12-19 18:45 | Emergency (ER) | payer MEDICARE, MEDICAID | END 2016-12-19 19:17 | disposition left against medical advice (07) | LOC: ER 18:45 | DX: Z53.21 Procedure and treatment not carried out due to patient leaving prior to being seen by health care provider (principal) ==

== ENCOUNTER 2016-12-20 02:54 | Emergency (ER) | payer MEDICARE, MEDICAID ==
[2016-12-20 04:16] VITALS: BP 106/62
--- NOTE | 2016-12-20 15:35 | EKG REPORT ---
SEVERITY:- BORDERLINE ECG - SINUS RHYTHM SHORT IA INTERVAL, ACCELERATED AV CONDUCTION BORDERLINE RIGHT AXIS DEVIATION : Confirmed by: Sruthi Rivas MD 20-Dec-2016 15:34:13
== END 2016-12-20 04:37 | disposition left against medical advice (07) ==
LOC: ER 02:54
DX: Z53.21 Procedure and treatment not carried out due to patient leaving prior to being seen by health care provider (principal)
CPT/HCPCS: 93005; 93010

== ENCOUNTER → 2016-12-20 05:57 | Emergency (ER) | payer MEDICARE, MEDICAID | END | disposition left against medical advice (07) | LOC: ER 05:57 | DX: Z53.21 Procedure and treatment not carried out due to patient leaving prior to being seen by health care provider (principal) ==

== ENCOUNTER 2016-12-21 21:33 | Emergency (ER) | payer MEDICARE, MEDICAID ==
--- NOTE | 2016-12-21 22:03 | ER Document Report ---
ED General - General Chief Complaint: Shortness Of Breath Stated Complaint: DIFFICULTY BREATHING Mode of Arrival: Medic Information source: Patient Notes: Patient presents to the emergency department via EMS for complaints of chest pain respiratory distress. Patient has history of COPD with history of EtOH abuse. Patient has been treated and left AMA several times from the hospital recently. He also reports fever vomiting diarrhea. Emotional support was given to patient, he agreed to stay this time for treatment. TRAVEL OUTSIDE OF THE [place] IN LAST 30 DAYS: No - HPI Onset: Other - days Quality of pain: Achy Severity: Moderate Associated symptoms: Chest pain, Nonproductive cough, Diarrhea, Fever, Nausea, Vomiting, Shortness of breath Exacerbated by: Denies Relieved by: Denies Similar symptoms previously: Yes Recently seen / treated by doctor: Yes - Related Data Allergies/Adverse Reactions: No Known Allergies Allergy (Verified 12/19/16 18:59) Past Medical History - General Information source: Patient - Social History Smoking Status: Current Every Day Smoker Cigarette use (# per day): Yes - 1-2 packs a day Chew tobacco use (# tins/day): No Frequency of alcohol use: Heavy Drug Abuse: None Lives with: Family - son Family History: Reviewed & Not Pertinent, Arthritis, CAD, COPD, Other Patient has suicidal ideation: No Patient has homicidal ideation: No - Past Medical History Cardiac Medical History: Reports: Hx Coronary Artery Disease, Hx Heart Attack - [place] occured in 2002. Takes ASA now, used to be on hypertensive medications, Hx Hypercholesterolemia, Hx Hypertension Pulmonary Medical History: Reports: Hx Asthma, Hx Bronchitis, Hx COPD, Hx Pneumonia Renal/ Medical History: Denies: Hx Peritoneal Dialysis Musculoskeltal Medical History: Reports Hx Arthritis, Reports Hx Musculoskeletal Deformity, Reports Hx Musculoskeletal Trauma Psychiatric Medical History: Reports: Hx Depression Traumatic Medical History: Reports: Hx Fractures - Left rib fractures with pneumothorax requiring chest tube on 05/23/2016 Past Surgical History: Reports: Hx Cardiac Catheterization - Immunizations Immunizations up to date: Yes Hx Diphtheria, Pertussis, Tetanus Vaccination: - unknown Hx Pneumococcal Vaccination: 02/22/13 Review of Systems - Review of Systems Notes: Review HPI for review of systems., All other systems negative Physical Exam - Vital signs Vitals: BP Pulse Ox 99/55 L 89 L 12/21/16 21:54 12/21/16 21:54 - Notes Notes: PHYSICAL EXAMINATION: GENERAL: Pt looks older than age HEAD: Atraumatic, normocephalic. EYES: Pupils equal round and reactive to light, extraocular movements intact, sclera anicteric, conjunctiva are normal. ENT: nares patent, oropharynx clear without exudates. Moist mucous membranes. NECK: Normal range of motion, supple without lymphadenopathy LUNGS: Decreased HEART: Regular rate ABDOMEN: Soft, no tenderness. No guarding, no rebound EXTREMITIES: Normal range of motion, no pitting edema. No cyanosis. NEUROLOGICAL: Cranial nerves grossly intact. Normal sensory/motor PSYCH: Normal mood, normal affect. answers all questions appropriately SKIN: Warm, Dry, normal turgor, no rashes or lesions noted Course - Re-evaluation Re-evalutation: 12/21/16 23:32 When I returned to my desk I was informed that patient left AMA. I was instructed that the patient was ripping out his IV and saying he was going to leave. I was unable to talk with him before he left. - Vital Signs Vital signs: Temp Pulse Resp BP Pulse Ox 98.2 F 75 18 109/57 L 96 12/21/16 21:56 12/21/16 21:56 12/21/16 21:56 12/21/16 22:01 12/21/16 22:01 - Laboratory Result Diagrams: 12/21/16 22:15 12/21/16 22:15 Laboratory results interpreted by me: 12/21/16 12/21/16 12/21/16 22:15 22:15 22:15 RBC 4.22 L Hgb 12.2 L Hct 36.4 L RDW 20.8 H Monocytes % 14.8 H Basophils % 2.2 H Sodium 133.0 L Chloride 92 L BUN 4 L Creatinine 0.49 L Calcium 8.2 L AST 261 H ALT 131 H Creatine Kinase 190 H CK-MB (CK-2) 7.47 H - Diagnostic Test Radiology reviewed: Image reviewed, Reports reviewed - IMPRESSION: COPD. NO ACUTE RADIOGRAPHIC FINDING IN THE CHEST OR SIGNIFICANT CHANGE FROM PRIOR STUDY Discharge - Discharge Clinical Impression: Chest pain Qualifiers: Chest pain type: unspecified Qualified Code(s): R07.9 - Chest pain, unspecified Disposition: AGAINST MEDICAL ADVICE Forms: Elevated Blood Pressure, Smoking Cessation Education
[2016-12-21 22:24] LABS: ABSOLUTE BASOPHILS # (AUTO) 0.1 10^3/uL (0.0-0.2); ABSOLUTE LYMPHOCYTES (AUTO) 0.9 10^3/uL (0.5-4.7); ABSOLUTE MONOCYTES (AUTO) 0.8 10^3/uL (0.1-1.4); ABSOLUTE NEUT (AUTO) 3.7 10^3/uL (1.7-8.2); BASOPHILS % (AUTO) 2.2 % (0-2); HEMATOCRIT 36.4 % (37.9-51.0); HEMOGLOBIN 12.2 g/dL (13.5-17.0); HGB HCT DIFFERENCE 0.2; LYMPHOCYTES % (AUTO) 16.6 % (13-45); MEAN CORPUSCULAR HEMOGLOBIN 28.9 pg (27.0-33.4); MEAN CORPUSCULAR HGB CONC 33.5 g/dL (32.0-36.0); MEAN CORPUSCULAR VOLUME 86 fl (80-97); MONOCYTES % (AUTO) 14.8 % (3-13); RED BLOOD COUNT 4.22 10^6/uL (4.35-5.55); RED CELL DISTRIBUTION WIDTH 20.8 % (11.5-14.0); SEGMENTED NEUTROPHILS % (AUTO) 66.4 % (42-78); WHITE BLOOD COUNT 5.6 10^3/uL (4.0-10.5)
[2016-12-21 22:40] VITALS: BP 109/57
[2016-12-21 22:46] LABS: ALANINE AMINOTRANSFERASE 131 U/L (21-72); ALBUMIN 3.9 g/dL (3.5-5.0); ALKALINE PHOSPHATASE 88 U/L (38-126); ANION GAP 13 (5-19); ASPARTATE AMINO TRANSFERASE 261 U/L (17-59); BILIRUBIN,DIRECT 0.4 mg/dL (0.0-0.4); BILIRUBIN,TOTAL 0.6 mg/dL (0.2-1.3); BLOOD UREA NITROGEN 4 mg/dL (7-20); CALCIUM 8.2 mg/dL (8.4-10.2); CARBON DIOXIDE 28 mmol/L (22-30); CHLORIDE 92 mmol/L (98-107); CREATINE KINASE 190 U/L (55-170); CREATININE RESULT 0.49 mg/dL (0.52-1.25); GLUCOSE 101 mg/dL (75-110); LIPASE 69.4 U/L (23-300); POTASSIUM 4.1 mmol/L (3.6-5.0); TOTAL PROTEIN 6.9 g/dL (6.3-8.2)
[2016-12-21 22:58] LABS: CREATINE KINASE MB 7.47 ng/mL (<4.55); TROPONIN I < 0.012 ng/mL
--- NOTE | 2016-12-22 06:09 | EKG REPORT ---
SEVERITY:- NORMAL ECG - SINUS RHYTHM : Confirmed by: Renee Gill 22-Dec-2016 06:09:30
== END 2016-12-21 22:38 | disposition left against medical advice (07) ==
LOC: ER 21:33
DX: R07.9 Chest pain, unspecified (principal); R06.02 Shortness of breath; R05 Cough; R19.7 Diarrhea, unspecified; R50.9 Fever, unspecified; R11.2 Nausea with vomiting, unspecified; F17.210 Nicotine dependence, cigarettes, uncomplicated; I25.10 Atherosclerotic heart disease of native coronary artery without angina pectoris; E78.00 Pure hypercholesterolemia, unspecified; I10 Essential (primary) hypertension; J44.9 Chronic obstructive pulmonary disease, unspecified; Z79.82 Long term (current) use of aspirin; I25.2 Old myocardial infarction
CPT/HCPCS: 36415; 71010; 80053; 82550; 82553; 83690; 84484; 85025; 93005; 93010; 99281

== ENCOUNTER 2016-12-22 00:56 | Emergency (ER) | payer MEDICARE, MEDICAID ==
[2016-12-22 01:20] VITALS: BP 112/62
== END 2016-12-22 01:20 | disposition left against medical advice (07) ==
LOC: ER 00:56
DX: Z53.9 Procedure and treatment not carried out, unspecified reason (principal); R06.02 Shortness of breath

== ENCOUNTER 2016-12-23 08:14 | Emergency (ER) | payer MEDICARE, MEDICAID ==
--- NOTE | 2016-12-23 08:33 | ER Document Report ---
ED General - General Stated Complaint: SHORTNESS OF BREATH Mode of Arrival: Medic Information source: Patient, Emergency Med Personnel, [facility] Records Notes: 61-year-old male extensive COPD smoking alcohol history presents by EMS with complaints of shortness of breath chest pain. Patient notes the chest pain started today. Patient has had 7 visits to the emergency department in the past 3 days but continues to leave without being seen. This is normal for the patient. Today patient appears exhausted initial EMS concern was for a STEMI, EKG was sent to [place] which stated does not appear to be a STEMI TRAVEL OUTSIDE OF THE [place] IN LAST 30 DAYS: No - HPI Onset: Just prior to arrival Onset/Duration: Sudden Quality of pain: Achy Severity: Mild Pain Level: 1 Associated symptoms: Chest pain, Shortness of breath Exacerbated by: Denies Relieved by: Denies Similar symptoms previously: Yes Recently seen / treated by doctor: Yes - Related Data Allergies/Adverse Reactions: No Known Allergies Allergy (Verified 12/19/16 18:59) Past Medical History - Social History Smoking Status: Current Every Day Smoker Cigarette use (# per day): Yes Chew tobacco use (# tins/day): No Smoking Education Provided: Yes - Patient counselled regarding cessation for 4 minutes Frequency of alcohol use: Heavy Family History: Reviewed & Not Pertinent, Arthritis, CAD, COPD, Other - Past Medical History Cardiac Medical History: Reports: Hx Coronary Artery Disease, Hx Heart Attack - [place] occured in 2002. Takes ASA now, used to be on hypertensive medications, Hx Hypercholesterolemia, Hx Hypertension Pulmonary Medical History: Reports: Hx Asthma, Hx Bronchitis, Hx COPD, Hx Pneumonia Renal/ Medical History: Denies: Hx Peritoneal Dialysis Musculoskeltal Medical History: Reports Hx Arthritis, Reports Hx Musculoskeletal Deformity, Reports Hx Musculoskeletal Trauma Psychiatric Medical History: Reports: Hx Depression Traumatic Medical History: Reports: Hx Fractures - Left rib fractures with pneumothorax requiring chest tube on 05/23/2016 Past Surgical History: Reports: Hx Cardiac Catheterization - Immunizations Immunizations up to date: Yes Hx Diphtheria, Pertussis, Tetanus Vaccination: - unknown Hx Pneumococcal Vaccination: 02/22/13 Review of Systems - Review of Systems Notes: REVIEW OF SYSTEMS: CONSTITUTIONAL : Denies fever, chills, or sweats. Denies recent illness. EENT: Denies eye, ear, throat, or mouth pain or symptoms. Denies nasal or sinus congestion or discharge. Denies throat, tongue, or mouth swelling or difficulty swallowing. CARDIOVASCULAR: Admits to chest pain RESPIRATORY: Admits to shortness of breath GASTROINTESTINAL: Denies abdominal pain or distention. Denies nausea, vomiting , or diarrhea. Denies blood in vomitus, stools, or per rectum. Denies black, tarry stools. Denies constipation. GENITOURINARY: Denies difficulty urinating, painful urination, burning, frequency, blood in urine, or discharge. MUSCULOSKELETAL: Denies back or neck pain or stiffness. Denies joint pain or swelling. SKIN: Denies rash, lesions or sores. HEMATOLOGIC : Denies easy bruising or bleeding. LYMPHATIC: Denies swollen, enlarged glands. NEUROLOGICAL: Denies confusion or altered mental status. Denies passing out or loss of consciousness. Denies dizziness or lightheadedness. Denies headache. Denies weakness or paralysis or loss of use of either side. Denies problems with gait or speech. Denies sensory loss, numbness, or tingling. Denies seizures. PSYCHIATRIC: Denies anxiety or stress. Denies depression, suicidal ideation, or homicidal ideation. ALL OTHER SYSTEMS REVIEWED AND NEGATIVE. Dictation was performed using [employer] voice recognition software PHYSICAL EXAMINATION: GENERAL: Cachectic-appearing male HEAD: Atraumatic, normocephalic. EYES: Pupils equal round and reactive to light, extraocular movements intact, sclera anicteric, conjunctiva are normal. ENT: Nares patent, oropharynx clear without exudates. Moist mucous membranes. NECK: Normal range of motion, supple without lymphadenopathy LUNGS: Coarse wheezing all throughout HEART: Regular rate and rhythm without murmurs ABDOMEN: Soft, nontender, nondistended abdomen. No guarding, no rebound. No masses appreciated. Musculoskeletal: Normal range of motion, no pitting or edema. No cyanosis. NEUROLOGICAL: Cranial nerves grossly intact. Normal speech, normal gait. Normal sensory, motor exams PSYCH: Appears tearful SKIN: Warm, Dry, normal turgor, no rashes or lesions noted. Physical Exam - Vital signs Vitals: Resp BP Pulse Ox 18 131/75 H 97 12/23/16 08:16 12/23/16 08:16 12/23/16 08:16 Course - Re-evaluation Re-evalutation: 12/23/16 08:34 On physical examination the patient does not appear to be having a STEMI, however he does not appear his normal self. Patient is normally aggressive and ripping off his IVs and refusing life saving measures. Today patient appears calm 12/23/16 09:18 Patient wishes to leave again, I will give him some Ativan to help calm him down. I think it be terrible for him to leave AGAINST MEDICAL ADVICE 12/23/16 11:06 Patient was offered admission he wishes to leave AGAINST MEDICAL ADVICE I have given him my concerns states she understands and has personal issues he needs to deal with After performing a Medical Screening Examination, I spoke with the patient at length in regards to leaving the hospital against medical advice. I do not believe the patient should leave but the patient is alert oriented x4, understands the risks and benefits of staying and leaving including disability and . Pt understands that he can return at any time for further care and is more than welcome to do so. Pt verbalizes this understanding. - Vital Signs Vital signs: Temp Pulse Resp BP Pulse Ox 98.2 F 18 105/76 99 12/23/16 08:20 12/23/16 08:30 12/23/16 08:30 12/23/16 08:30 - Laboratory Result Diagrams: 12/23/16 08:19 12/23/16 08:19 Laboratory results interpreted by me: 12/23/16 12/23/16 12/23/16 08:18 08:19 08:19 RBC 4.28 L Hgb 12.2 L Hct 36.6 L RDW 20.7 H Plt Count 144 L Sodium 134.9 L Chloride 93 L BUN 6 L Creatinine 0.51 L AST 159 H ALT 127 H CK-MB (CK-2) 4.85 H - Diagnostic Test Radiology reviewed: Image reviewed, Reports reviewed - EKG Interpretation by Me EKG shows normal: Sinus rhythm, [place], Intervals, QRS Complexes Discharge - Discharge Clinical Impression: COPD exacerbation, SOB (shortness of breath) Chest pain Qualifiers: Chest pain type: unspecified Qualified Code(s): R07.9 - Chest pain, unspecified Condition: Fair Disposition: HOME, SELF-CARE Instructions: Chest Pain of Unclear Cause ([facility]) Referrals: EPHRAIM MADSEN MD [Primary Care Provider] - Follow up tomorrow
[2016-12-23 08:34] VITALS: BP 105/76
[2016-12-23 08:38] LABS: HEMATOCRIT 36.6 % (37.9-51.0); HEMOGLOBIN 12.2 g/dL (13.5-17.0); MEAN CORPUSCULAR HEMOGLOBIN 28.6 pg (27.0-33.4); MEAN CORPUSCULAR HGB CONC 33.5 g/dL (32.0-36.0); MEAN CORPUSCULAR VOLUME 86 fl (80-97); RED BLOOD COUNT 4.28 10^6/uL (4.35-5.55); RED CELL DISTRIBUTION WIDTH 20.7 % (11.5-14.0); WHITE BLOOD COUNT 6.3 10^3/uL (4.0-10.5)
[2016-12-23 08:47] LABS: VENOUS BLOOD BASE EXCESS 3.7 mmol/L; VENOUS BLOOD PCO2 46.1 mmHg (35-63); VENOUS BLOOD PH 7.42 (7.30-7.42)
[2016-12-23 09:00] LABS: ALANINE AMINOTRANSFERASE 127 U/L (21-72); ALBUMIN 3.9 g/dL (3.5-5.0); ALKALINE PHOSPHATASE 89 U/L (38-126); ANION GAP 12 (5-19); ASPARTATE AMINO TRANSFERASE 159 U/L (17-59); BILIRUBIN,DIRECT 0.2 mg/dL (0.0-0.4); BILIRUBIN,TOTAL 0.5 mg/dL (0.2-1.3); BLOOD UREA NITROGEN 6 mg/dL (7-20); CALCIUM 8.7 mg/dL (8.4-10.2); CARBON DIOXIDE 30 mmol/L (22-30); CHLORIDE 93 mmol/L (98-107); CREATINE KINASE 132 U/L (55-170); CREATININE RESULT 0.51 mg/dL (0.52-1.25); GLUCOSE 88 mg/dL (75-110); POTASSIUM 3.7 mmol/L (3.6-5.0); SODIUM 134.9 mmol/L (137-145); TOTAL PROTEIN 6.6 g/dL (6.3-8.2)
[2016-12-23 09:05] LABS: BASOPHILS % (MANUAL) 0 % (0-2); EOSINOPHILS % (MANUAL) 0 % (0-6); LYMPHOCYTES % (MANUAL) 15 % (13-45); TOTAL CELLS COUNTED 100
[2016-12-23 09:07] LABS: ANISOCYTOSIS 2+; HYPOCHROMASIA 1+; OVALOCYTES SLIGHT; POIKILOCYTOSIS 1+; POLYCHROMASIA SLIGHT; TARGET CELLS 1+
[2016-12-23 09:11] LABS: CREATINE KINASE MB 4.85 ng/mL (<4.55)
[2016-12-23 09:12] LABS: TROPONIN I < 0.012 ng/mL
[2016-12-23] MEDS ORDERED: LORAZEPAM INJ 2 MG/1 ML VIAL IV ONE (09:18)
[2016-12-23] MEDS ORDERED: NICOTINE 14 MG/24 HR PATCH.TD24 TD ONE (09:44)
[2016-12-23 10:11] LABS: APPEARANCE,URINE CLEAR; BILIRUBIN,URINE NEGATIVE (NEGATIVE); GLUCOSE, URINE NEGATIVE (NEGATIVE); KETONES,URINE NEGATIVE (NEGATIVE); LEUKOCYTE ESTERASE,URINE NEGATIVE (NEGATIVE); NITRITE,URINE NEGATIVE (NEGATIVE); PROTEIN,URINE NEGATIVE (NEGATIVE); URINE SPECIFIC GRAVITY 1.008; UROBILINOGEN,URINE NEGATIVE mg/dL (<2.0)
--- NOTE | 2016-12-23 10:50 | EKG REPORT ---
SEVERITY:- OTHERWISE NORMAL ECG - SINUS RHYTHM BORDERLINE RIGHT AXIS DEVIATION : Confirmed by: Renee Gill 23-Dec-2016 10:49:54
== END 2016-12-23 11:51 | disposition home or self-care (01) ==
LOC: ER 08:14
DX: J44.1 Chronic obstructive pulmonary disease with (acute) exacerbation (principal); R06.02 Shortness of breath; R07.9 Chest pain, unspecified; I25.10 Atherosclerotic heart disease of native coronary artery without angina pectoris; I25.2 Old myocardial infarction; I10 Essential (primary) hypertension; F17.210 Nicotine dependence, cigarettes, uncomplicated; Z71.6 Tobacco abuse counseling; Z87.01 Personal history of pneumonia (recurrent); Z53.29 Procedure and treatment not carried out because of patient's decision for other reasons
CPT/HCPCS: 93005; 99285; 96374; 36415; 87040; 87086; 82553; 82550; 85025; 85610; 80053; 81001; 84484; 82803; 83605; 71010; 93010; J2060

== ENCOUNTER 2016-12-25 04:11 | Emergency (ER) | payer MEDICARE, MEDICAID ==
--- NOTE | 2016-12-25 05:02 | ER Document Report ---
ED General - General Chief Complaint: Psych Problem Stated Complaint: SUICIDAL IDEATION Time seen by provider: 04:41 Mode of Arrival: Medic Information source: Patient TRAVEL OUTSIDE OF THE U.S. IN LAST 30 DAYS: No - HPI Notes: Patient is a 61-year-old male well-known to the emergency department for CHF, COPD and drug-seeking presents with complaint of suicidal ideation since earlier today and he claims he drank rubbing alcohol no more than 100 mL according to EMS who was able to evaluate the container he had drank out of. Patient states he drank the rubbing alcohol shortly before arrival. The patient denies any fever or chills or abdominal pain. He states he has chronic chest and back pain which is unchanged. He denies any significant cough or congestion. Patient denies any other coingestants. Patient is somewhat vague about his other suicidal thoughts and plans. - Related Data Allergies/Adverse Reactions: No Known Allergies Allergy (Verified 12/25/16 04:45) Past Medical History - Social History Smoking Status: Current Every Day Smoker Chew tobacco use (# tins/day): No Frequency of alcohol use: Heavy Drug Abuse: None Family History: Reviewed & Not Pertinent, Arthritis, CAD, COPD, Other - Past Medical History Cardiac Medical History: Reports: Hx Coronary Artery Disease, Hx Heart Attack - [place] occured in 2002. Takes ASA now, used to be on hypertensive medications, Hx Hypercholesterolemia, Hx Hypertension Pulmonary Medical History: Reports: Hx Asthma, Hx Bronchitis, Hx COPD, Hx Pneumonia Renal/ Medical History: Denies: Hx Peritoneal Dialysis Musculoskeltal Medical History: Reports Hx Arthritis, Reports Hx Musculoskeletal Deformity, Reports Hx Musculoskeletal Trauma Psychiatric Medical History: Reports: Hx Depression Traumatic Medical History: Reports: Hx Fractures - Left rib fractures with pneumothorax requiring chest tube on 05/23/2016 Past Surgical History: Reports: Hx Cardiac Catheterization - Immunizations Immunizations up to date: Yes Hx Diphtheria, Pertussis, Tetanus Vaccination: - unknown Hx Pneumococcal Vaccination: 02/22/13 Review of Systems - Review of Systems Notes: REVIEW OF SYSTEMS: CONSTITUTIONAL : Denies fever, chills, or sweats. EENT: Denies eye, ear, throat, or mouth pain or symptoms. Denies nasal or sinus congestion or discharge. Denies throat, tongue, or mouth swelling or difficulty swallowing. CARDIOVASCULAR: Denies palpitations or racing or irregular heart beat. Denies ankle edema. RESPIRATORY: Denies cough, cold, or chest congestion. Patient reports chronic unchanged dyspnea related to COPD. GASTROINTESTINAL: Denies abdominal pain or distention. Denies nausea, vomiting , or diarrhea. Denies blood in vomitus, stools, or per rectum. Denies black, tarry stools. Denies constipation. GENITOURINARY: Denies difficulty urinating, painful urination, burning, frequency, blood in urine, or discharge. MUSCULOSKELETAL: Denies back or neck pain or stiffness. Denies joint pain or swelling. SKIN: Denies rash, lesions or sores. HEMATOLOGIC : Denies easy bruising or bleeding. LYMPHATIC: Denies swollen, enlarged glands. NEUROLOGICAL: Denies confusion or altered mental status. Denies passing out or loss of consciousness. Denies dizziness or lightheadedness. Denies headache. Denies weakness or paralysis or loss of use of either side. Denies problems with gait or speech. Denies sensory loss, numbness, or tingling. Denies seizures. PSYCHIATRIC: Patient denies homicidal ideation or hallucinations. He does admit to depression and suicidal ideation. ALL OTHER SYSTEMS REVIEWED AND NEGATIVE. Dictation was performed using [employer] voice recognition software Physical Exam - Vital signs Vitals: Temp Resp Pulse Ox 98.1 F 25 H 96 12/25/16 04:25 12/25/16 04:25 12/25/16 04:25 - Notes Notes: PHYSICAL EXAMINATION: GENERAL: no acute distress. HEAD: Atraumatic, normocephalic. EYES: Pupils equal round and reactive to light, extraocular movements intact, sclera anicteric, conjunctiva are normal. ENT: Nares patent, oropharynx clear without exudates. Moist mucous membranes. NECK: Normal range of motion, supple without lymphadenopathy LUNGS: Breath sounds coarse bilaterally. No significant wheeze or rales. HEART: Regular rate and rhythm without gallop or rub. Patient has a 3/6 systolic ejection murmur best auscultated over the apex. ABDOMEN: Soft, nontender, nondistended abdomen. No guarding, no rebound. No masses appreciated. Musculoskeletal: Normal range of motion, no pitting or edema. No cyanosis. Patient has chronic pain through the back where he has significant kyphosis and degenerative changes. No acute bony deformity or erythema. NEUROLOGICAL: Cranial nerves grossly intact. Normal speech, normal gait. Normal sensory, motor exams PSYCH: Somewhat flat affect. Patient reports suicidal ideation and depression. SKIN: Warm, Dry, normal turgor, no rashes or lesions noted. Course - Re-evaluation Re-evalutation: 12/25/16 05:25 Discussion was undertaken with poison control, who stated it was unlikely that the patient had a significant isopropyl alcohol ingestion given the lack of any somnolence noted currently. VBG and chemistries will assess for any acidosis that would signify a more significant isopropyl alcohol ingestion. Care is turned over to oncoming practitioner. Patient is currently under suicide watch, but has vague suicidal ideation. Patient will need medical clearance related to his chronic chest pain prior to any psychiatric evaluation. No current wheezing on exam. 12/25/16 05:27 - Vital Signs Vital signs: Temp Pulse Resp BP Pulse Ox 98.1 F 29 H 151/79 H 96 12/25/16 04:25 12/25/16 04:26 12/25/16 04:26 12/25/16 04:26 - Laboratory Result Diagrams: 12/25/16 04:20 12/25/16 04:20 Laboratory results interpreted by me: 12/25/16 04:20 RBC 4.16 L Hgb 12.1 L Hct 35.9 L RDW 21.7 H Plt Count 100 L Monocytes % 13.8 H - EKG Interpretation by Dc EKG shows normal: Sinus rhythm Additional EKG results interpreted by me: 12/25/16 05:24 EKG as interpreted by ky showed normal sinus rhythm heart rate is 77. There is no gross evidence for acute MD or ischemia identified. There was some artifact noted. Discharge - Discharge Clinical Impression: Suicidal ideation, Poisoning by isopropyl alcohol, Depression Chest pain Qualifiers: Chest pain type: unspecified Qualified Code(s): R07.9 - Chest pain, unspecified
[2016-12-25 05:09] LABS: ABSOLUTE EOSINOPHILS # (AUTO) 0.1 10^3/uL (0.0-0.6); ABSOLUTE LYMPHOCYTES (AUTO) 1.1 10^3/uL (0.5-4.7); ABSOLUTE NEUT (AUTO) 5.3 10^3/uL (1.7-8.2); BASOPHILS % (AUTO) 0.6 % (0-2); EOSINOPHILS % (AUTO) 1.4 % (0-6); HEMATOCRIT 35.9 % (37.9-51.0); HEMOGLOBIN 12.1 g/dL (13.5-17.0); HGB HCT DIFFERENCE 0.4; MEAN CORPUSCULAR HEMOGLOBIN 29.1 pg (27.0-33.4); MEAN CORPUSCULAR HGB CONC 33.8 g/dL (32.0-36.0); MEAN CORPUSCULAR VOLUME 86 fl (80-97); MONOCYTES % (AUTO) 13.8 % (3-13); RED BLOOD COUNT 4.16 10^6/uL (4.35-5.55); RED CELL DISTRIBUTION WIDTH 21.7 % (11.5-14.0); SEGMENTED NEUTROPHILS % (AUTO) 70.2 % (42-78); WHITE BLOOD COUNT 7.6 10^3/uL (4.0-10.5)
[2016-12-25 05:15] LABS: ALANINE AMINOTRANSFERASE 83 U/L (21-72); ALBUMIN 3.7 g/dL (3.5-5.0); ALCOHOL 14 mg/dL (NONE DETECTED); ALKALINE PHOSPHATASE 85 U/L (38-126); ANION GAP 11 (5-19); ASPARTATE AMINO TRANSFERASE 77 U/L (17-59); BILIRUBIN,DIRECT 0.3 mg/dL (0.0-0.4); BILIRUBIN,TOTAL 0.9 mg/dL (0.2-1.3); BLOOD UREA NITROGEN 4 mg/dL (7-20); CALCIUM 8.7 mg/dL (8.4-10.2); CARBON DIOXIDE 28 mmol/L (22-30); CHLORIDE 92 mmol/L (98-107); CREATININE RESULT 0.48 mg/dL (0.52-1.25); GLUCOSE 83 mg/dL (75-110); LIPASE 54.7 U/L (23-300); MAGNESIUM 1.9 mg/dL (1.6-2.3); POTASSIUM 3.7 mmol/L (3.6-5.0); SODIUM 130.7 mmol/L (137-145); TOTAL PROTEIN 6.4 g/dL (6.3-8.2)
[2016-12-25 05:27] LABS: TROPONIN I < 0.012 ng/mL
[2016-12-25 06:41] LABS: VENOUS BLOOD BASE EXCESS 5.4 mmol/L; VENOUS BLOOD HCO3 29.2 mmol/L (20-32); VENOUS BLOOD PCO2 39.7 mmHg (35-63); VENOUS BLOOD PH 7.48 (7.30-7.42)
[2016-12-25] MEDS ORDERED: HALOPERIDOL LACTATE INJ 5 MG/1 ML VIAL IV ONE (07:12)
[2016-12-25] MEDS ORDERED: HALOPERIDOL LACTATE INJ 5 MG/1 ML VIAL ONE (07:14)
[2016-12-25 07:49] LABS: APPEARANCE,URINE CLEAR; BILIRUBIN,URINE NEGATIVE (NEGATIVE); GLUCOSE, URINE NEGATIVE (NEGATIVE); KETONES,URINE NEGATIVE (NEGATIVE); LEUKOCYTE ESTERASE,URINE NEGATIVE (NEGATIVE); NITRITE,URINE NEGATIVE (NEGATIVE); PROTEIN,URINE NEGATIVE (NEGATIVE); URINE SPECIFIC GRAVITY 1.005; UROBILINOGEN,URINE NEGATIVE mg/dL (<2.0)
[2016-12-25 08:03] LABS: URINE BARBITURATES SCREEN NEGATIVE; URINE METHADONE SCREEN NEGATIVE; URINE OPIATES LOW NEGATIVE; URINE PHENCYCLIDINE SCREEN NEGATIVE
--- NOTE | 2016-12-25 11:15 | ER Document Report ---
ED Psych Disorder / Suicide - General Mode of Arrival: Medic Information source: Patient, Relative - Patient's son with whom he resides, [facility] Records TRAVEL OUTSIDE OF THE [place] IN LAST 30 DAYS: No - HPI Patient complains to provider of: Overdose - allegedly drank rubbing alcohol Onset: Just prior to arrival Onset was: Sudden Situational problems related to: Other - COPD/chronic chest pain and breathing probs Suicide Attempt Method: Overdose - allegedly drank rubbing alcohol Overdose of: Other Normal mood: Yes Associated symptoms: Normal affect, Normal mood, Depressed Similar symptoms previously: No Recently seen / treated by doctor: Yes - Pt often presents (almost weekly) with c/o chest pain/breathing probs <GERTRUDIS DUMONT - Last Filed: 12/25/16 11:09> <JACOBY BLAKE - Last Filed: 12/25/16 11:16> - General Chief Complaint: Psych Problem Stated Complaint: SUICIDAL IDEATION - HPI Notes: Patient is a 61 year old year male who presented via EMS, who he called, after he allegedly drank rubbing alcohol. Patient is well known to this department, although not this clinician, for almost weekly presentations of COPD exasperations and or chest pains. Patient reports he drinks beer daily and has for years. He states he was consuming beer last night and drank rubbing alcohol. He denies wanting to , although acknowledges that he may have made suicidal type statement to EMS and or upon arrival. Patient states he called EMS because he was scared and did not want to wake up his son and worry him. Patient further reports he is not sure if he has ever attempted suicide before. Patient states he would like to return home. Patient was hesitant to provide his son's name and phone number, but did so when informed a family member would need to be contacted prior to consideration of discharge. A review of patient's medical report indicates low chance of actual excessive rubbing alcohol consumption, per Poison Control and MD per his lack of symptoms. Patient's son, Kathleen states: no answer. [facility] [place] [facility] return contact. Patient is A&O x4. Mood is anxious with congruent affect. Patient denies suicidal/homicidal ideations, intent, plan, or means. Patient denies A/V H; delusions not noted. Thought processes were organized and goal oriented towards discharge. Conversational speech was WNL for prosody. Intellectual abilities were estimated within average range. Attention and focus were poor. Insight, judgment, and impulse control were poor. Unspecified Alcohol Use Disorder Unspecified Depressive Disorder Patient is psychiatrically cleared for discharge to follow up with [facility]. Patient is recommended to engage in SA assessment to determine appropriate level of services. I consulted with Dr. Magaña in regards to the care and management of this patient. (GERTRUDIS DUMONT) - Related Data Allergies/Adverse Reactions: No Known Allergies Allergy (Verified 12/25/16 04:45) Past Medical History - General Information source: Patient - Social History Smoking Status: Current Every Day Smoker Chew tobacco use (# tins/day): No Frequency of alcohol use: Heavy Drug Abuse: None Family History: Reviewed & Not Pertinent, Arthritis, CAD, COPD, Other Patient has suicidal ideation: No - pt denied at this time Patient has homicidal ideation: No - pt denied at this time - Past Medical History Cardiac Medical History: Reports: Hx Coronary Artery Disease, Hx Heart Attack - [place] occured in 2002. Takes ASA now, used to be on hypertensive medications, Hx Hypercholesterolemia, Hx Hypertension Pulmonary Medical History: Reports: Hx Asthma, Hx Bronchitis, Hx COPD, Hx Pneumonia Renal/ Medical History: Denies: Hx Peritoneal Dialysis Musculoskeltal Medical History: Reports Hx Arthritis, Reports Hx Musculoskeletal Deformity, Reports Hx Musculoskeletal Trauma Psychiatric Medical History: Reports: Hx Borderline Personality Disorder, Hx Depression Traumatic Medical History: Reports: Hx Fractures - Left rib fractures with pneumothorax requiring chest tube on 05/23/2016 Past Surgical History: Reports: Hx Cardiac Catheterization - Immunizations Immunizations up to date: Yes Hx Diphtheria, Pertussis, Tetanus Vaccination: - unknown Hx Pneumococcal Vaccination: 02/22/13 <GERTRUDIS DUMONT - Last Filed: 12/25/16 11:09> Course - Laboratory Result Diagrams: 12/25/16 04:20 12/25/16 04:20 <GERTRUDIS DUMONT - Last Filed: 12/25/16 11:09> - Laboratory Result Diagrams: 12/25/16 04:20 12/25/16 04:20 <JACOBY BLAKE - Last Filed: 12/25/16 11:16> - Vital Signs Vital signs: Temp Pulse Resp BP Pulse Ox 98.1 F 86 22 H 139/78 H 95 12/25/16 09:04 12/25/16 09:04 12/25/16 09:04 12/25/16 09:04 12/25/16 09:04 - Laboratory Laboratory results interpreted by me: 12/25/16 12/25/16 12/25/16 04:20 04:20 06:30 RBC 4.16 L Hgb 12.1 L Hct 35.9 L RDW 21.7 H Plt Count 100 L Monocytes % 13.8 H VBG pH 7.48 H Sodium 130.7 L Chloride 92 L BUN 4 L Creatinine 0.48 L AST 77 H ALT 83 H Acetaminophen < 10 L Discharge <GERTRUDIS DUMONT - Last Filed: 12/25/16 11:09> <JACOBY BLAKE - Last Filed: 12/25/16 11:16> - Discharge Clinical Impression: Chest pain, Suicidal ideation, Poisoning by isopropyl alcohol, Depression Condition: Stable Disposition: HOME, SELF-CARE Instructions: Suicidal Ideation ([facility]), Depression ([facility]), Alcoholic Hepatitis ( [facility]) Additional Instructions: Please present to [email or web address] Human Services for evaluation of your alcohol abuse. This Comprehensive Clinical Assessment will determine appropriate services to address your comorbid mental health and substance abuse needs. Please return if your symptoms worsen. You have been provided community resources to include mobile crisis phone numbers. Forms: Smoking Cessation Education Referrals: LESLY BRYAN MD [Primary Care Provider] - Follow up as needed
[2016-12-25 11:39] VITALS: BP 150/78
== END 2016-12-25 11:38 | disposition home or self-care (01) ==
LOC: ER 04:11
DX: T51.2X2A Toxic effect of 2-Propanol, intentional self-harm, initial encounter (principal); R07.9 Chest pain, unspecified; F17.200 Nicotine dependence, unspecified, uncomplicated
CPT/HCPCS: 99284; 96374; 36415; 80307 ×3; 83690; 83735; 85025; 80053; 81001; 84484; 82803; 83880; 71010; J1630

== ENCOUNTER 2017-01-10 11:09 | Emergency (ER) | payer MEDICARE, MEDICAID ==
--- NOTE | 2017-01-10 11:57 | ER Document Report ---
ED Respiratory Problem - General Stated Complaint: WEAKNESS Mode of Arrival: Medic Information source: Patient, Transfer Record Notes: Patient was found lying in the road in front of his house complaining of difficulty breathing. Standby states that there may have been a loss of consciousness. Patient states that he has had some alcohol today. Patient is a well-known visitor to this ER with multiple visits for COPD exacerbation as well as acute alcohol intoxication. TRAVEL OUTSIDE OF THE [place] IN LAST 30 DAYS: No - HPI Patient complains to provider of: COPD, Cough, Short of breath. No: Chest pain Onset: This afternoon Duration: Continuous Quality of pain: Achy Pain Level: 2 Context: Hx asthma, Hx COPD Cough: Nonproductive Associated symptoms: Congestion, Cough, Short of breath, Wheezing. denies: Bloody cough, Chest pain/discomfort, Fever, Headache Similar symptoms previously: Yes Recently seen / treated by doctor: No - Related Data Allergies/Adverse Reactions: No Known Allergies Allergy (Verified 12/25/16 04:45) Past Medical History - General Information source: Patient, Transfer Record - Social History Smoking Status: Current Every Day Smoker Frequency of alcohol use: Heavy Drug Abuse: None Family History: Reviewed & Not Pertinent, Arthritis, CAD, COPD, Other - Past Medical History Cardiac Medical History: Reports: Hx Coronary Artery Disease, Hx Heart Attack - [place] occured in 2002. Takes ASA now, used to be on hypertensive medications, Hx Hypercholesterolemia, Hx Hypertension Pulmonary Medical History: Reports: Hx Asthma, Hx Bronchitis, Hx COPD, Hx Pneumonia Renal/ Medical History: Denies: Hx Peritoneal Dialysis Musculoskeltal Medical History: Reports Hx Arthritis, Reports Hx Musculoskeletal Deformity, Reports Hx Musculoskeletal Trauma Psychiatric Medical History: Reports: Hx Borderline Personality Disorder, Hx Depression Traumatic Medical History: Reports: Hx Fractures - Left rib fractures with pneumothorax requiring chest tube on 05/23/2016 Past Surgical History: Reports: Hx Cardiac Catheterization - Immunizations Immunizations up to date: Yes Hx Diphtheria, Pertussis, Tetanus Vaccination: - unknown Hx Pneumococcal Vaccination: 02/22/13 Review of Systems - Review of Systems Constitutional: No symptoms reported EENT: No symptoms reported Cardiovascular: denies: Chest pain Respiratory: Short of breath, Wheezing Gastrointestinal: Abdominal pain. denies: Nausea, Vomiting Genitourinary: No symptoms reported Male Genitourinary: No symptoms reported Musculoskeletal: No symptoms reported Skin: No symptoms reported Hematologic/Lymphatic: No symptoms reported Neurological/Psychological: No symptoms reported Physical Exam - Vital signs Vitals: Resp Pulse Ox 22 H 87 L 01/10/17 12:01 01/10/17 12:01 - General General appearance: Alert In distress: Mild - HEENT Head: Normocephalic, Atraumatic Eyes: Normal Conjunctiva: Normal Pupils: PERRL Ears: Normal Nasal: Normal Mouth/Lips: Normal Mucous membranes: Dry Pharynx: Normal Neck: Normal, Supple. No: Lymphadenopathy - Respiratory Respiratory status: Labored, Tachypnea Chest status: Nontender Breath sounds: Nonproductive cough, Rhonchi, Wheezing Chest palpation: Normal - Cardiovascular Rhythm: Regular Heart sounds: S1 appreciated, S2 appreciated Murmur: No - Abdominal Inspection: Normal Distension: No distension Bowel sounds: Normal Tenderness: Tender - Epigastric Organomegaly: No organomegaly - Back Back: Normal, Nontender. No: CVA tenderness - Extremities General upper extremity: Normal ROM, Other - Abrasions to bilateral elbows General lower extremity: Normal inspection, Normal ROM - Neurological Neuro grossly intact: Yes Federico Coma Scale Eye Opening: Spontaneous Federico Coma Scale Verbal: Oriented Federico Coma Scale Motor: Obeys Commands Federico Coma Scale Total: 15 - Psychological Associated symptoms: Normal affect, Normal mood - Skin Skin Temperature: Warm Skin Moisture: Dry Skin irregularity: other - Abrasions to bilateral elbows Course - Re-evaluation Re-evalutation: 01/10/17 12:16 Dr. Leroy to bedside for consultation examination. Agrees with plan for BiPAP , advises giving chest film with plan to call hospitalist for likely admission 01/10/17 12:55 Patient anxious after BiPAP application, medication ordered. 01/10/17 13:46 Patient repeatedly removing BiPAP, patient removed oxygen. Patient states that he has to leave and wants to sign out AMA. Discussed risks with patient. Patient advised that if he leaves that he could be putting his life at risk and that he is strongly encouraged to stay for likely admission at this time. Patient does not want to stay and is agreeable to wait for paperwork so that he can be given an inhaler as well prescriptions for outpatient treatment.The patient has decided not to proceed with further recommended testing or treatment to determine the cause of her symptoms. The risk and alternatives to the recommendation were discussed the patient voiced understanding. The patient appears clinically to have the capacity to make this decision. The patient was instructed that they could return to the ER at any time to complete the testing or treatment. - Vital Signs Vital signs: Temp Pulse Resp BP Pulse Ox 24 H 139/82 H 92 01/10/17 13:30 01/10/17 13:30 01/10/17 13:30 - Laboratory Result Diagrams: 01/10/17 13:00 01/10/17 13:00 Laboratory results interpreted by me: 01/10/17 01/10/17 01/10/17 13:00 13:00 13:00 WBC 12.5 H RDW 22.1 H Seg Neuts % (Manual) 93 H Band Neutrophils % 1 L Lymphocytes % (Manual) 3 L Abs Neuts (Manual) 11.8 H Abs Lymphs (Manual) 0.4 L Sodium 136.2 L Chloride 91 L Creatinine 0.50 L Glucose 125 H Direct Bilirubin 0.5 H AST 112 H Creatine Kinase 711 H CK-MB (CK-2) 15.50 H Labs- Entire Visit 01/10/17 01/10/17 01/10/17 13:00 13:00 13:00 WBC 12.5 H RBC 4.76 Hgb 14.0 Hct 42.2 MCV 89 MCH 29.4 MCHC 33.2 RDW 22.1 H Plt Count 328 Total Counted 100 Seg Neutrophils % Not Reportable Seg Neuts % (Manual) 93 H Band Neutrophils % 1 L Lymphocytes % Not Reportable Lymphocytes % (Manual) 3 L Monocytes % Not Reportable Monocytes % (Manual) 3 Eosinophils % Not Reportable Eosinophils % (Manual) 0 Basophils % Not Reportable Basophils % (Manual) 0 Absolute Neutrophils Not Reportable Abs Neuts (Manual) 11.8 H Absolute Lymphocytes Not Reportable Abs Lymphs (Manual) 0.4 L Absolute Monocytes Not Reportable Abs Monocytes (Manual) 0.4 Absolute Eosinophils Not Reportable Absolute Eos (Manual) 0.0 Absolute Basophils Not Reportable Abs Basophils (Manual) 0.0 Toxic Granulation SLIGHT Platelet Comment ADEQUATE Anisocytosis 3+ PT INR Sodium 136.2 L Potassium 4.6 Chloride 91 L Carbon Dioxide 30 Anion Gap 15 BUN 8 Creatinine 0.50 L Est GFR ( Amer) > 60 Est GFR (Non-Af Amer) > 60 Glucose 125 H Lactic Acid Calcium 9.2 Total Bilirubin 0.8 Direct Bilirubin 0.5 H Indirect Bilirubin Not Reportable Neonat Total Bilirubin Not Reportable AST 112 H ALT 68 Alkaline Phosphatase 84 Creatine Kinase 711 H CK-MB (CK-2) 15.50 H Troponin I < 0.012 Total Protein 8.2 Albumin 4.6 Lipase 39.5 Serum Alcohol < 10 01/10/17 01/10/17 13:00 13:00 WBC RBC Hgb Hct MCV MCH MCHC RDW Plt Count Total Counted Seg Neutrophils % Seg Neuts % (Manual) Band Neutrophils % Lymphocytes % Lymphocytes % (Manual) Monocytes % Monocytes % (Manual) Eosinophils % Eosinophils % (Manual) Basophils % Basophils % (Manual) Absolute Neutrophils Abs Neuts (Manual) Absolute Lymphocytes Abs Lymphs (Manual) Absolute Monocytes Abs Monocytes (Manual) Absolute Eosinophils Absolute Eos (Manual) Absolute Basophils Abs Basophils (Manual) Toxic Granulation Platelet Comment Anisocytosis PT 12.0 INR 0.86 Sodium Potassium Chloride Carbon Dioxide Anion Gap BUN Creatinine Est GFR ( Amer) Est GFR (Non-Af Amer) Glucose Lactic Acid 1.0 Calcium Total Bilirubin Direct Bilirubin Indirect Bilirubin Neonat Total Bilirubin AST ALT Alkaline Phosphatase Creatine Kinase CK-MB (CK-2) Troponin I Total Protein Albumin Lipase Serum Alcohol - Diagnostic Test Radiology reviewed: Image reviewed, Reports reviewed Discharge - Discharge Clinical Impression: COPD exacerbation, General weakness, SOB (shortness of breath) Disposition: AGAINST MEDICAL ADVICE Instructions: Chronic Obstructive Lung Disease ([facility]), Inhaled Bronchodilators ( [facility]), Steroid Medication, Azithromycin ([facility]) Additional Instructions: Return immediately for any new or worsening symptoms, or if you would like to continue with your treatment today Followup with your primary care provider, call today to make a followup appointment Prescriptions: Azithromycin [Zithromax 250 mg Tablet] 250 mg PO DAILY 4 Days Prednisone [Deltasone 20 mg Tablet] 2 tab PO DAILY 5 Days Referrals: LESLY BRYAN MD [Primary Care Provider] - Follow up tomorrow
[2017-01-10] MEDS ORDERED: ALBUTEROL SULFATE 0.083% NEB 2.5 MG/3 ML AMPUL NEB SCH (12:04)
[2017-01-10] MEDS ORDERED: LORAZEPAM INJ 2 MG/1 ML VIAL IV ONE (12:55)
[2017-01-10] MEDS ORDERED: CEFTRIAXONE RTU 1 GM/D5W 50 ML IV ONE (13:02)
[2017-01-10 13:12] LABS: HEMATOCRIT 42.2 % (37.9-51.0); HGB HCT DIFFERENCE -0.2; MEAN CORPUSCULAR HEMOGLOBIN 29.4 pg (27.0-33.4); MEAN CORPUSCULAR HGB CONC 33.2 g/dL (32.0-36.0); MEAN CORPUSCULAR VOLUME 89 fl (80-97); RED BLOOD COUNT 4.76 10^6/uL (4.35-5.55); RED CELL DISTRIBUTION WIDTH 22.1 % (11.5-14.0); WHITE BLOOD COUNT 12.5 10^3/uL (4.0-10.5)
[2017-01-10 13:31] LABS: BAND NEUTROPHILS % (MANUAL) 1 % (3-5); BASOPHILS % (MANUAL) 0 % (0-2); EOSINOPHILS % (MANUAL) 0 % (0-6); LYMPHOCYTES % (MANUAL) 3 % (13-45); TOTAL CELLS COUNTED 100
[2017-01-10 13:34] LABS: ALANINE AMINOTRANSFERASE 68 U/L (21-72); ALBUMIN 4.6 g/dL (3.5-5.0); ALKALINE PHOSPHATASE 84 U/L (38-126); ANION GAP 15 (5-19); ANISOCYTOSIS 3+; ASPARTATE AMINO TRANSFERASE 112 U/L (17-59); BILIRUBIN,DIRECT 0.5 mg/dL (0.0-0.4); BILIRUBIN,TOTAL 0.8 mg/dL (0.2-1.3); BLOOD UREA NITROGEN 8 mg/dL (7-20); CALCIUM 9.2 mg/dL (8.4-10.2); CARBON DIOXIDE 30 mmol/L (22-30); CHLORIDE 91 mmol/L (98-107); CREATINE KINASE 711 U/L (55-170); GLUCOSE 125 mg/dL (75-110); LIPASE 39.5 U/L (23-300); POTASSIUM 4.6 mmol/L (3.6-5.0); SODIUM 136.2 mmol/L (137-145); TOTAL PROTEIN 8.2 g/dL (6.3-8.2); TOXIC GRANULATION SLIGHT
[2017-01-10 13:36] LABS: ALCOHOL < 10 mg/dL (NONE DETECTED)
[2017-01-10] MEDS ORDERED: AZITHROMYCIN 250 MG TABLET PO ONE (13:45)
[2017-01-10] MEDS ORDERED: ALBUTEROL SULFATE HFA (90 MCG/PUFF) 8 GM MDI (1 MDI/ER DISP) IH ONE (13:46)
[2017-01-10 13:48] LABS: TROPONIN I < 0.012 ng/mL
[2017-01-10 14:01] VITALS: BP 139/82
--- NOTE | 2017-01-11 09:37 | EKG REPORT ---
SEVERITY:- NORMAL ECG - SINUS RHYTHM : Confirmed by: Renee Gill 11-Jan-2017 09:36:34
== END 2017-01-10 13:59 | disposition left against medical advice (07) ==
LOC: ER 11:09
DX: J44.1 Chronic obstructive pulmonary disease with (acute) exacerbation (principal); R53.1 Weakness; R06.02 Shortness of breath; F17.200 Nicotine dependence, unspecified, uncomplicated
CPT/HCPCS: 93005; 99285; 36415; 87040; 82553; 80307; 82550; 83605; 83690; 85025; 85610; 80053; 84484; 71020; 70450; 93010; 94660; A9270; J3490

== ENCOUNTER 2017-01-10 23:04 | Emergency (ER) | payer MEDICARE, MEDICAID ==
[2017-01-10] MEDS ORDERED: IPRATROPIUM/ALBUTEROL 0.5-2.5 MG/3 ML AMPUL NEB ONE (23:24)
[2017-01-10] MEDS ORDERED: METHYLPREDNISOLONE INJ 125 MG/2 ML SDV IV ONE (23:24)
--- NOTE | 2017-01-10 23:26 | ER Document Report ---
ED General - General Chief Complaint: Chest Pain Stated Complaint: CHEST PAIN Time seen by provider: 23:20 Notes: Patient is a 61-year-old male that comes by EMS for chief complaint of pain across the front of his chest with movement and painful cough. Patient left AGAINST MEDICAL ADVICE earlier today, when asked why he states he's not sure. Patient states that when he went home he "just didn't feel good and decided to come back". Patient states he has intermittent shortness of breath with congestion and productive cough. He denies fever. Past medical history of tobacco use, chronic alcohol dependence, COPD, remote history of SC and stents in the early reportedly. Patient states he drank alcohol this morning but none since. TRAVEL OUTSIDE OF THE [place] IN LAST 30 DAYS: No - Related Data Allergies/Adverse Reactions: No Known Allergies Allergy (Verified 12/25/16 04:45) Past Medical History - General Information source: Patient - Social History Smoking Status: Current Every Day Smoker Smoking Education Provided: Yes - <3 min Frequency of alcohol use: Heavy Drug Abuse: None Lives with: Family Family History: Reviewed & Not Pertinent, Arthritis, CAD, COPD, Other - Past Medical History Cardiac Medical History: Reports: Hx Coronary Artery Disease, Hx Heart Attack - [place] occured in 2002. Takes ASA now, used to be on hypertensive medications, Hx Hypercholesterolemia, Hx Hypertension Pulmonary Medical History: Reports: Hx Asthma, Hx Bronchitis, Hx COPD, Hx Pneumonia Renal/ Medical History: Denies: Hx Peritoneal Dialysis Musculoskeltal Medical History: Reports Hx Arthritis, Reports Hx Musculoskeletal Deformity, Reports Hx Musculoskeletal Trauma Psychiatric Medical History: Reports: Hx Borderline Personality Disorder, Hx Depression Traumatic Medical History: Reports: Hx Fractures - Left rib fractures with pneumothorax requiring chest tube on 05/23/2016 Past Surgical History: Reports: Hx Cardiac Catheterization - Immunizations Immunizations up to date: Yes Hx Diphtheria, Pertussis, Tetanus Vaccination: - unknown Hx Pneumococcal Vaccination: 02/22/13 Review of Systems - Review of Systems Constitutional: No symptoms reported EENT: No symptoms reported Cardiovascular: See HPI Respiratory: See HPI Gastrointestinal: No symptoms reported Genitourinary: No symptoms reported Male Genitourinary: No symptoms reported Musculoskeletal: No symptoms reported Skin: No symptoms reported Hematologic/Lymphatic: No symptoms reported Neurological/Psychological: No symptoms reported Physical Exam - Vital signs Vitals: Resp 23 H 04/27/17 23:29 Interpretation: Normal - General General appearance: Appears well In distress: None - Patient is chronically somewhat ill appearing with a very thin structure and ricardo complexion, however he is in no distress - HEENT Head: Normocephalic, Atraumatic Eyes: Normal Conjunctiva: Normal Extraocular movements intact: Yes Eyelashes: Normal Pupils: PERRL Nasal: Normal Mouth/Lips: Normal Mucous membranes: Normal Pharynx: Normal Neck: Normal - Respiratory Respiratory status: No respiratory distress. No: Respiratory distress, Retractions, Tachypnea Chest status: Nontender Breath sounds: Decreased air movement, Nonproductive cough. No: Rales, Rhonchi , Stridor, Wheezing Chest palpation: Normal - Cardiovascular Rhythm: Regular. No: Tachycardia Heart sounds: Normal auscultation, S1 appreciated, S2 appreciated Murmur: No - Abdominal Inspection: Normal Distension: No distension Bowel sounds: Normal Tenderness: Nontender. No: Tender Organomegaly: No organomegaly - Back Back: Normal, Nontender - Extremities General upper extremity: Normal inspection, Nontender, Normal color, Normal ROM , Normal temperature General lower extremity: Normal inspection, Nontender, Normal color, Normal ROM , Normal temperature, Normal weight bearing. No: Sylvia's sign - Neurological Neuro grossly intact: Yes Cognition: Normal Orientation: AAOx4 Pickton Coma Scale Eye Opening: Spontaneous Federico Coma Scale Verbal: Oriented [place] Coma Scale Motor: Obeys Commands [place] Coma Scale Total: 15 Speech: Normal Motor strength normal: LUE, RUE, LLE, RLE Sensory: Normal - Psychological Associated symptoms: Normal affect, Normal mood - Skin Skin Temperature: Warm Skin Moisture: Dry Skin Color: Ricardo Course - Re-evaluation Re-evalutation: Patient with occasional nonproductive congested sounding cough, however patient is not in respiratory distress, has no tachypnea or labored breathing, has decreased but clear lung sounds, not hypoxic on room air. Patient given a DuoNeb, Solu-Medrol, on reexamination patient states he feels much better. He states he is hungry but otherwise has no complaints. Patient is actually well appearing despite being somewhat chronically ill-appearing. He is awake and acting sober. Chest x-ray with no acute abnormalities, EKG shows no T-wave inversions or ST segment changes consecutive leads, no acute findings. Machine reads as normal. CBC with mild leukocytosis, hemoglobin is slightly lower than before but patient has been given IV fluids and IV antibiotics. Patient denies any bloody bowel movements or hematemesis. Patient's abdomen is benign. CK is downtrending, patient is somewhat hyponatremic but given IV fluids. Very similar to previous. 2 sets of negative cardiac enzymes, patient has had a total of 3 negative enzymes today. He is requesting to leave. No evidence of ACS, possible underlying pneumonia, patient heart prescribed azithromycin and prednisone, he states he has the prescription at home and will fill them and take them today if he is discharged. Patient states he wants to call his son to leave. Discussed with Dr. Goldberg. Discussed return precautions in detail, patient states understanding and agreement. - Vital Signs Vital signs: Temp Pulse Resp BP Pulse Ox 97.8 F 78 20 139/75 H 91 L 01/11/17 04:58 01/11/17 04:58 01/11/17 04:58 01/11/17 04:58 01/11/17 04:58 - Laboratory Result Diagrams: 01/10/17 23:36 01/10/17 23:36 Laboratory results interpreted by me: 01/10/17 01/10/17 01/10/17 23:36 23:36 23:36 WBC 13.8 H RBC 4.05 L Hgb 11.9 L D Hct 35.5 L RDW 21.7 H Seg Neutrophils % 82.7 H Lymphocytes % 9.0 L Absolute Neutrophils 11.4 H Sodium 129.9 L Chloride 90 L BUN 6 L Creatinine 0.50 L AST 87 H Creatine Kinase 645 H CK-MB (CK-2) 13.30 H Discharge - Discharge Clinical Impression: Cough Chest pain Qualifiers: Chest pain type: unspecified Qualified Code(s): R07.9 - Chest pain, unspecified Condition: Stable Disposition: HOME, SELF-CARE Additional Instructions: Your workup today does not show any acute abnormalities. Please take the prednisone for COPD and the azithromycin for possible pneumonia as you were prescribed. Follow-up with your primary care provider. Return to emergency department for any concerning or worsening symptoms.
[2017-01-10 23:48] LABS: ABSOLUTE BASOPHILS # (AUTO) 0.1 10^3/uL (0.0-0.2); ABSOLUTE LYMPHOCYTES (AUTO) 1.2 10^3/uL (0.5-4.7); ABSOLUTE MONOCYTES (AUTO) 1.1 10^3/uL (0.1-1.4); ABSOLUTE NEUT (AUTO) 11.4 10^3/uL (1.7-8.2); BASOPHILS % (AUTO) 0.7 % (0-2); HEMATOCRIT 35.5 % (37.9-51.0); HGB HCT DIFFERENCE 0.2; MEAN CORPUSCULAR HEMOGLOBIN 29.3 pg (27.0-33.4); MEAN CORPUSCULAR HGB CONC 33.5 g/dL (32.0-36.0); MEAN CORPUSCULAR VOLUME 88 fl (80-97); MONOCYTES % (AUTO) 7.6 % (3-13); RED BLOOD COUNT 4.05 10^6/uL (4.35-5.55); RED CELL DISTRIBUTION WIDTH 21.7 % (11.5-14.0); SEGMENTED NEUTROPHILS % (AUTO) 82.7 % (42-78); WHITE BLOOD COUNT 13.8 10^3/uL (4.0-10.5)
[2017-01-10 23:56] LABS: HEMOGLOBIN 11.9 g/dL (13.5-17.0)
[2017-01-11 00:04] LABS: ALANINE AMINOTRANSFERASE 68 U/L (21-72); ALBUMIN 4.2 g/dL (3.5-5.0); ALKALINE PHOSPHATASE 69 U/L (38-126); ANION GAP 13 (5-19); ASPARTATE AMINO TRANSFERASE 87 U/L (17-59); BILIRUBIN,DIRECT 0.1 mg/dL (0.0-0.4); BILIRUBIN,TOTAL 0.4 mg/dL (0.2-1.3); BLOOD UREA NITROGEN 6 mg/dL (7-20); CALCIUM 8.7 mg/dL (8.4-10.2); CARBON DIOXIDE 27 mmol/L (22-30); CHLORIDE 90 mmol/L (98-107); CREATINE KINASE 645 U/L (55-170); GLUCOSE 97 mg/dL (75-110); POTASSIUM 4.2 mmol/L (3.6-5.0); SODIUM 129.9 mmol/L (137-145); TOTAL PROTEIN 6.9 g/dL (6.3-8.2)
[2017-01-11] MEDS ORDERED: NORMAL SALINE 1000 ML 1,000 ML IV ONE (00:15)
[2017-01-11 00:16] LABS: TROPONIN I < 0.012 ng/mL
[2017-01-11 05:00] VITALS: BP 139/75
== END 2017-01-11 05:00 | disposition home or self-care (01) ==
LOC: ER 23:04
DX: R05 Cough (principal); R07.9 Chest pain, unspecified; F17.200 Nicotine dependence, unspecified, uncomplicated
CPT/HCPCS: 93005; 94640; 99285; 96361; 96374; 36415; 87040; 82553; 80307; 82550; 83605; 83690; 85025; 85610; 80053; 84484; 71020; 71010; 70450; 93010; 94660; A9270 ×2; J2930; J7030; J3490; J7620

== ENCOUNTER 2017-01-12 00:57 | Emergency (ER) | payer MEDICARE, MEDICAID | END 2017-01-12 01:07 | disposition left against medical advice (07) | LOC: ER 00:57 | DX: Z53.9 Procedure and treatment not carried out, unspecified reason (principal); R07.9 Chest pain, unspecified ==

== ENCOUNTER 2017-01-16 21:59 | Emergency (ER) | payer MEDICARE, MEDICAID ==
[2017-01-16 22:30] VITALS: BP 130/61
== END 2017-01-17 00:02 | disposition left against medical advice (07) ==
LOC: ER 21:59
DX: Z53.21 Procedure and treatment not carried out due to patient leaving prior to being seen by health care provider (principal)

== ENCOUNTER 2017-01-17 15:26 | Emergency (ER) | payer MEDICARE, MEDICAID ==
--- NOTE | 2017-01-17 15:39 | ER Document Report ---
ED Respiratory Problem - General Mode of Arrival: Medic Information source: Patient TRAVEL OUTSIDE OF THE [place] IN LAST 30 DAYS: No - HPI Patient complains to provider of: COPD, Cough Onset: Other - see HPI Note Duration: Better Context: Hx COPD At home treatment: Bronchodilators EMS treatments: Bronchodilators, Solumedrol Associated symptoms: Cough <ANTONINA COUGHLIN - Last Filed: 01/17/17 18:15> <JOSE D VARGAS - Last Filed: 01/17/17 21:03> - General Stated Complaint: DIFFICULTY BREATHING Notes: Patient is a 61-year-old male presents emergency department for difficulty breathing. Patient states that EMS brought him here. Patient received 2 duonebs with EMS. Patient states he uses an inhaler at home but it is not helping him much so he called EMS. Patient also has a cough which is chronic from his COPD. Patient denies any fever, chest pain, abdominal pain, visual or auditory difficulties. Patient states he is feeling better and would like to leave. Patient refuses a chest x-ray and an EKG. Patient has no known allergies. (ANTONINA COUGHLIN) - Related Data Allergies/Adverse Reactions: No Known Allergies Allergy (Verified 12/25/16 04:45) Past Medical History - General Information source: Patient - Social History Smoking Status: Current Every Day Smoker Chew tobacco use (# tins/day): No Frequency of alcohol use: Heavy Drug Abuse: None Family History: Arthritis, CAD, COPD, Other - Past Medical History Cardiac Medical History: Reports: Hx Coronary Artery Disease, Hx Heart Attack - [place] occured in 2002. Takes ASA now, used to be on hypertensive medications, Hx Hypercholesterolemia, Hx Hypertension Pulmonary Medical History: Reports: Hx Asthma, Hx Bronchitis, Hx COPD, Hx Pneumonia Musculoskeltal Medical History: Reports Hx Arthritis, Reports Hx Musculoskeletal Deformity, Reports Hx Musculoskeletal Trauma Psychiatric Medical History: Reports: Hx Borderline Personality Disorder, Hx Depression Traumatic Medical History: Reports: Hx Fractures - Left rib fractures with pneumothorax requiring chest tube on 05/23/2016 Past Surgical History: Reports: Hx Cardiac Catheterization - Immunizations Immunizations up to date: Yes Hx Diphtheria, Pertussis, Tetanus Vaccination: - unknown Hx Pneumococcal Vaccination: 02/22/13 <ANTONINA COUGHLIN - Last Filed: 01/17/17 18:15> Review of Systems - Review of Systems Constitutional: No symptoms reported EENT: No symptoms reported Cardiovascular: No symptoms reported Respiratory: See HPI, Cough, Short of breath Gastrointestinal: No symptoms reported Genitourinary: No symptoms reported Male Genitourinary: No symptoms reported Musculoskeletal: No symptoms reported Skin: No symptoms reported Hematologic/Lymphatic: No symptoms reported Neurological/Psychological: No symptoms reported -: Yes All other systems reviewed and negative <ANTONINA COUGHLIN - Last Filed: 01/17/17 18:15> Physical Exam <RODERICKANTONINA - Last Filed: 01/17/17 18:15> - Vital signs Interpretation: Normal <JOSE D VARGAS - Last Filed: 01/17/17 21:03> - Vital signs Vitals: Pulse Pulse Ox 100 95 01/17/17 15:39 01/17/17 15:39 Notes: Respiratory rate 16 (JOSE D VARGAS) - Notes Notes: GENERAL: Alert, interacts well. No acute distress. HEAD: Normocephalic, atraumatic. EYES: Pupils equal, round, and reactive to light. Extraocular movements intact. ENT: Oral mucosa moist, tongue midline. NECK: Full range of motion. Supple. Trachea midline. LUNGS: Clear to auscultation bilaterally, trace rhonchi, coarse expiratory and inspiratory wheezes. No respiratory distress. HEART: Mild tachycardia, regular rhythm. No murmurs, gallops, or rubs. ABDOMEN: Soft, non-tender. Non-distended. Bowel sounds present in all 4 quadrants. EXTREMITIES: Moves all 4 extremities spontaneously. No edema. No cyanosis. NEUROLOGICAL: Alert and oriented x3. Normal speech. PSYCH: Normal affect, normal mood. SKIN: Warm, dry, normal turgor. No rashes or lesions noted. (ATNONINA COUGHLIN) Course <RODERICKANTONINA - Last Filed: 01/17/17 18:15> <JOSE D VARGAS - Last Filed: 01/17/17 21:03> - Re-evaluation Re-evalutation: 01/17/17 15:41 Patient was brought in for difficulty breathing, given 2 albuterol and Atrovent treatments as well as 125 Solu-Medrol via EMS, patient feels much better, wheezing is always completely resolved, patient has a known history of COPD, frequent only comes in with this pattern where he will be treated by EMS, feels better and leaves without allowing any further medical treatment. I did discuss with the patient the importance of doing an EKG and a chest x-ray to rule out pneumonia or possible heart attack causing some of this difficulty breathing, patient refuses both, is aware that he could get worse or he could with either of these tests are not being done in order to identify life- threatening pathology such as acute coronary syndrome or pneumonia. Patient is aware of these risks and wants a discharged home anyway. Patient will return should his breathing difficulty worsen or she develop any chest pain. Patient is prescribed prednisone to help with acute exacerbation of COPD, already has an albuterol inhaler at home which she states is working a small amount but not completely. (JOSE D VARGAS) - Vital Signs Vital signs: Temp Pulse Resp BP Pulse Ox 100 95 01/17/17 15:39 01/17/17 15:39 Discharge <ANTONINA COUGHLIN - Last Filed: 01/17/17 18:15> <JOSE D VARGAS - Last Filed: 01/17/17 21:03> - Discharge Clinical Impression: COPD exacerbation Condition: Stable Disposition: HOME, SELF-CARE Additional Instructions: You have refused to have a chest x-ray to look for pneumonia, you have also refused to have an EKG to look for a heart attack. If at any point you're breathing worsens, you develop fever, or you develop any chest plain please return. We're happy to see you again at any point. I have prescribed you steroids to help with your continued difficulty breathing. Please also continue to use your albuterol inhaler (puffer) every 4 hours. Prescriptions: Prednisone [Deltasone 20 mg Tablet] 3 tab PO DAILY 5 Days Referrals: URSULA BRYAN MD [NO LOCAL MD] - Follow up in 3-5 days Scribe Attestation: 01/17/17 21:03 I personally performed the services described in the documentation, reviewed and edited the documentation which was dictated to the scribe in my presence, and it accurately records my words and actions. (JOSE D VARGAS) Scribe Documentation - Scribe Written by Fred:: Antonina Coughlin 01/17/17 18:00 acting as scribe for :: Sparkle <ANTONINA COUGHLIN - Last Filed: 01/17/17 18:15>
== END 2017-01-17 15:44 | disposition home or self-care (01) ==
LOC: ER 15:26
DX: J44.1 Chronic obstructive pulmonary disease with (acute) exacerbation (principal); R06.02 Shortness of breath; F17.200 Nicotine dependence, unspecified, uncomplicated
CPT/HCPCS: 99284

== ENCOUNTER 2017-01-20 07:44 | Emergency (ER) | payer MEDICARE, MEDICAID ==
--- NOTE | 2017-01-20 07:48 | ER Document Report ---
ED General - General Stated Complaint: DIFFICULTY BREATHING Mode of Arrival: Medic Information source: Patient Notes: 61-year-old male history of COPD chronic alcoholic who refuses care every time he comes to the emergency department presents with complaints of shortness of breath. Patient was given breathing treatments by EMS. Patient denies any fevers or chills nausea vomiting or diarrhea TRAVEL OUTSIDE OF THE [place] IN LAST 30 DAYS: No - HPI Onset: Just prior to arrival Onset/Duration: Sudden Quality of pain: No pain Severity: Mild Pain Level: Denies Associated symptoms: Nonproductive cough, Shortness of breath Exacerbated by: Denies Relieved by: Denies Similar symptoms previously: Yes Recently seen / treated by doctor: Yes - Related Data Allergies/Adverse Reactions: No Known Allergies Allergy (Verified 12/25/16 04:45) Past Medical History - Social History Smoking Status: Current Every Day Smoker Cigarette use (# per day): Yes Chew tobacco use (# tins/day): No Smoking Education Provided: Yes - Patient counselled regarding cessation for 4 minutes Family History: Arthritis, CAD, COPD, Other - Past Medical History Cardiac Medical History: Reports: Hx Coronary Artery Disease, Hx Heart Attack - [place] occured in 2002. Takes ASA now, used to be on hypertensive medications, Hx Hypercholesterolemia, Hx Hypertension Pulmonary Medical History: Reports: Hx Asthma, Hx Bronchitis, Hx COPD, Hx Pneumonia Renal/ Medical History: Denies: Hx Peritoneal Dialysis Musculoskeltal Medical History: Reports Hx Arthritis, Reports Hx Musculoskeletal Deformity, Reports Hx Musculoskeletal Trauma Psychiatric Medical History: Reports: Hx Borderline Personality Disorder, Hx Depression Traumatic Medical History: Reports: Hx Fractures - Left rib fractures with pneumothorax requiring chest tube on 05/23/2016 Past Surgical History: Reports: Hx Cardiac Catheterization - Immunizations Immunizations up to date: Yes Hx Diphtheria, Pertussis, Tetanus Vaccination: - unknown Hx Pneumococcal Vaccination: 02/22/13 Review of Systems - Review of Systems Notes: REVIEW OF SYSTEMS: CONSTITUTIONAL : Denies fever, chills, or sweats. Denies recent illness. EENT: Denies eye, ear, throat, or mouth pain or symptoms. Denies nasal or sinus congestion or discharge. Denies throat, tongue, or mouth swelling or difficulty swallowing. CARDIOVASCULAR: Denies chest pain. Denies palpitations or racing or irregular heart beat. Denies ankle edema. RESPIRATORY: Admits shortness breath cough. GASTROINTESTINAL: Denies abdominal pain or distention. Denies nausea, vomiting , or diarrhea. Denies blood in vomitus, stools, or per rectum. Denies black, tarry stools. Denies constipation. GENITOURINARY: Denies difficulty urinating, painful urination, burning, frequency, blood in urine, or discharge. MUSCULOSKELETAL: Denies back or neck pain or stiffness. Denies joint pain or swelling. SKIN: Denies rash, lesions or sores. HEMATOLOGIC : Denies easy bruising or bleeding. LYMPHATIC: Denies swollen, enlarged glands. NEUROLOGICAL: Denies confusion or altered mental status. Denies passing out or loss of consciousness. Denies dizziness or lightheadedness. Denies headache. Denies weakness or paralysis or loss of use of either side. Denies problems with gait or speech. Denies sensory loss, numbness, or tingling. Denies seizures. PSYCHIATRIC: Denies anxiety or stress. Denies depression, suicidal ideation, or homicidal ideation. ALL OTHER SYSTEMS REVIEWED AND NEGATIVE. Dictation was performed using [employer] voice recognition software PHYSICAL EXAMINATION: GENERAL: Chronically ill-appearing male older than stated age HEAD: Atraumatic, normocephalic. EYES: Pupils equal round and reactive to light, extraocular movements intact, sclera anicteric, conjunctiva are normal. ENT: Nares patent, oropharynx clear without exudates. Moist mucous membranes. NECK: Normal range of motion, supple without lymphadenopathy LUNGS: coarse wheezing all throughout . HEART: Regular rate and rhythm without murmurs ABDOMEN: Soft, nontender, nondistended abdomen. No guarding, no rebound. No masses appreciated. Musculoskeletal: Normal range of motion, no pitting or edema. No cyanosis. NEUROLOGICAL: Cranial nerves grossly intact. Normal speech, normal gait. Normal sensory, motor exams PSYCH: Normal mood, normal affect. SKIN: Warm, Dry, normal turgor, no rashes or lesions noted. Course - Re-evaluation Re-evalutation: 01/20/17 08:16 X-ray notes no acute abnormality patient's already walking out, I spoke to him in the hallway, I explained AMA protocol which he is quite aware of Smoking cessation provided patient admits he needs to stop smoking After performing a Medical Screening Examination, I spoke with the patient at length in regards to leaving the hospital against medical advice. I do not believe the patient should leave but the patient is alert oriented x4, understands the risks and benefits of staying and leaving including disability and . Pt understands that he can return at any time for further care and is more than welcome to do so. Pt verbalizes this understanding. 01/20/17 08:16 - Diagnostic Test Radiology reviewed: Image reviewed, Reports reviewed - No acute abnormality Discharge - Discharge Clinical Impression: Encounter for smoking cessation counseling, COPD exacerbation Condition: Stable Disposition: AGAINST MEDICAL ADVICE Instructions: Chronic Obstructive Lung Disease ([facility]) Referrals: EPHRAIM MADSEN MD [Primary Care Provider] - 01/21/17
== END 2017-01-20 08:20 | disposition left against medical advice (07) ==
LOC: ER 07:44
DX: J44.1 Chronic obstructive pulmonary disease with (acute) exacerbation (principal); R06.02 Shortness of breath; R05 Cough; F17.210 Nicotine dependence, cigarettes, uncomplicated; Z71.6 Tobacco abuse counseling; I25.10 Atherosclerotic heart disease of native coronary artery without angina pectoris; I25.2 Old myocardial infarction; I10 Essential (primary) hypertension; F10.920 Alcohol use, unspecified with intoxication, uncomplicated; D72.829 Elevated white blood cell count, unspecified; E87.1 Hypo-osmolality and hyponatremia; D64.9 Anemia, unspecified
CPT/HCPCS: 36415; 71010; 80053; 80307; 82803; 85025; 99281; 99285; 99406

== ENCOUNTER 2017-01-20 13:52 | Emergency (ER) | payer MEDICARE, MEDICAID ==
[2017-01-20] MEDS ORDERED: ALBUTEROL SULFATE 0.083% NEB 2.5 MG/3 ML AMPUL NEB ONE (14:21)
[2017-01-20] MEDS ORDERED: IPRATROPIUM/ALBUTEROL 0.5-2.5 MG/3 ML AMPUL NEB ONE (14:21)
--- NOTE | 2017-01-20 14:24 | ER Document Report ---
ED Respiratory Problem - General Time seen by provider: 14:05 Mode of Arrival: Medic Information source: Patient TRAVEL OUTSIDE OF THE [place] IN LAST 30 DAYS: No - HPI Patient complains to provider of: COPD, Short of breath Onset: Other - see HPI note Context: Hx COPD, Smoker Associated symptoms: Cough, Difficulty breathing Similar symptoms previously: Yes Recently seen / treated by doctor: Yes <ANTONINA VAUGNH - Last Filed: 01/20/17 15:37> <JOSE D VARGAS - Last Filed: 01/20/17 17:05> - General Chief Complaint: Breathing Difficulty Stated Complaint: DIFFICULTY BREATHING Notes: Patient is a 61-year-old male presented to the emergency department via EMS for difficulty breathing. Patient has a history of COPD and was seen here a few hours prior to this visit. Patient was also seen and evaluated on 01/17/17 for the same. Patient denies any fevers. Patient denies drinking any alcohol today. Patient has no known allergies. (ANTONINA VAUGHN) - Related Data Allergies/Adverse Reactions: No Known Allergies Allergy (Verified 12/25/16 04:45) Past Medical History - General Information source: Patient - Social History Smoking Status: Current Every Day Smoker Chew tobacco use (# tins/day): No Frequency of alcohol use: Heavy Drug Abuse: None Family History: Arthritis, CAD, COPD - Past Medical History Cardiac Medical History: Reports: Hx Coronary Artery Disease, Hx Heart Attack - [place] occured in 2002. Takes ASA now, used to be on hypertensive medications, Hx Hypercholesterolemia, Hx Hypertension Pulmonary Medical History: Reports: Hx Asthma, Hx Bronchitis, Hx COPD, Hx Pneumonia Musculoskeltal Medical History: Reports Hx Arthritis, Reports Hx Musculoskeletal Deformity, Reports Hx Musculoskeletal Trauma Psychiatric Medical History: Reports: Hx Borderline Personality Disorder, Hx Depression Traumatic Medical History: Reports: Hx Fractures - Left rib fractures with pneumothorax requiring chest tube on 05/23/2016 Past Surgical History: Reports: Hx Cardiac Catheterization - Immunizations Immunizations up to date: Yes Hx Diphtheria, Pertussis, Tetanus Vaccination: - unknown Hx Pneumococcal Vaccination: 02/22/13 <ANTONINA VAUGHN - Last Filed: 01/20/17 15:37> Review of Systems - Review of Systems Constitutional: No symptoms reported EENT: No symptoms reported Cardiovascular: No symptoms reported Respiratory: See HPI, Cough, Short of breath Gastrointestinal: No symptoms reported Genitourinary: No symptoms reported Male Genitourinary: No symptoms reported Musculoskeletal: No symptoms reported Skin: No symptoms reported Hematologic/Lymphatic: No symptoms reported Neurological/Psychological: No symptoms reported -: Yes All other systems reviewed and negative <ANTONINA VAUGHN - Last Filed: 01/20/17 15:37> Physical Exam <ANTONINA VAUGHN - Last Filed: 01/20/17 15:37> <JOSE D VARGAS - Last Filed: 01/20/17 17:05> - Notes Notes: GENERAL: Sleeping but easily awakens to verbal stimuli, alert, somnolent but able to answer questions. No acute distress. HEAD: Normocephalic, atraumatic. EYES: Pupils equal, round, and reactive to light. Extraocular movements intact. ENT: Oral mucosa moist, tongue midline. NECK: Full range of motion. Supple. Trachea midline. LUNGS: 99% oxygen saturation on 2 L, 96% oxygen saturation on room air. Expiratory wheeze. Improved air movement compared to visit on 01/17/17. No respiratory distress. HEART: Regular rate and rhythm. Rate of 78. No murmurs, gallops, or rubs. ABDOMEN: Soft, non-tender. Non-distended. Bowel sounds present in all 4 quadrants. EXTREMITIES: Moves all 4 extremities spontaneously. No edema, radial and dorsalis pedis pulses 2/4 bilaterally. No cyanosis. NEUROLOGICAL: Alert and oriented x3. Normal speech. PSYCH: Normal affect, normal mood but somnolent. SKIN: Warm to touch, dry, normal turgor. No rashes or lesions noted. (ANTONINA VAUGHN) Course - Laboratory Result Diagrams: 01/20/17 14:50 01/20/17 14:50 <ANTONINA VAUGHN - Last Filed: 01/20/17 15:37> - Laboratory Result Diagrams: 01/20/17 14:50 01/20/17 14:50 <JOSE D VARGAS - Last Filed: 01/20/17 17:05> - Re-evaluation Re-evalutation: 01/20/17 17:03 Patient stayed long enough to have his blood drawn however he eloped from his room after that. Patient does appear significantly improved compared to when I saw him 3 days ago, he does state he is taking his prednisone as prescribed by me 3 days ago. Patient was not hypoxic in the emergency department and was able to walk out under his own power. I do not know what else we could've done to keep the patient in the emergency department until the conclusion of his testing. 01/20/17 17:03 Patient's anemia and hyponatremia are consistent with chronic alcoholism and beer potomania. 01/20/17 17:04 Leukocytosis likely from the steroids that started last visit. (JOSE D VARGAS) - Laboratory Laboratory results interpreted by me: 01/20/17 01/20/17 01/20/17 14:50 14:50 14:50 WBC 11.1 H RBC 3.95 L Hgb 11.7 L Hct 35.8 L RDW 21.7 H Monocytes % 13.7 H Absolute Monocytes 1.5 H VBG HCO3 32.2 H Sodium 130.4 L Chloride 90 L BUN 5 L Creatinine 0.46 L Glucose 74 L AST 61 H Serum Alcohol 316 H* Discharge <ANTONINA VAUGHN - Last Filed: 01/20/17 15:37> <JOSE D VARGAS - Last Filed: 01/20/17 17:05> - Discharge Clinical Impression: Acute exacerbation of chronic obstructive pulmonary disease, Hyponatremia Alcohol intoxication Qualifiers: Complication of substance-induced condition: uncomplicated Qualified Code(s): F10.920 - Alcohol use, unspecified with intoxication, uncomplicated Anemia Qualifiers: Anemia type: unspecified type Qualified Code(s): D64.9 - Anemia, unspecified Condition: Stable Disposition: ELOPED Referrals: EPHRAIM MADSEN MD [Primary Care Provider] - Follow up as needed Scribe Attestation: 01/20/17 17:05 I personally performed the services described in the documentation, reviewed and edited the documentation which was dictated to the scribe in my presence, and it accurately records my words and actions. (JOSE D VARGAS) Scribe Documentation - Scribe Written by Fred:: Fred Melendez 01/20/17 15:33 acting as scribe for :: Sparkle <ANTONINA VAUGHN - Last Filed: 01/20/17 15:37>
[2017-01-20 15:34] LABS: ABSOLUTE BASOPHILS # (AUTO) 0.1 10^3/uL (0.0-0.2); ABSOLUTE LYMPHOCYTES (AUTO) 1.5 10^3/uL (0.5-4.7); ABSOLUTE MONOCYTES (AUTO) 1.5 10^3/uL (0.1-1.4); BASOPHILS % (AUTO) 0.8 % (0-2); EOSINOPHILS % (AUTO) 0.1 % (0-6); HEMATOCRIT 35.8 % (37.9-51.0); HEMOGLOBIN 11.7 g/dL (13.5-17.0); HGB HCT DIFFERENCE -0.7; LYMPHOCYTES % (AUTO) 13.5 % (13-45); MEAN CORPUSCULAR HEMOGLOBIN 29.5 pg (27.0-33.4); MEAN CORPUSCULAR HGB CONC 32.6 g/dL (32.0-36.0); MEAN CORPUSCULAR VOLUME 91 fl (80-97); MONOCYTES % (AUTO) 13.7 % (3-13); RED BLOOD COUNT 3.95 10^6/uL (4.35-5.55); RED CELL DISTRIBUTION WIDTH 21.7 % (11.5-14.0); SEGMENTED NEUTROPHILS % (AUTO) 71.9 % (42-78); VENOUS BLOOD BASE EXCESS 4.6 mmol/L; VENOUS BLOOD HCO3 32.2 mmol/L (20-32); VENOUS BLOOD PH 7.35 (7.30-7.42); WHITE BLOOD COUNT 11.1 10^3/uL (4.0-10.5)
[2017-01-20 15:52] LABS: ALANINE AMINOTRANSFERASE 62 U/L (21-72); ALBUMIN 3.7 g/dL (3.5-5.0); ALKALINE PHOSPHATASE 98 U/L (38-126); ANION GAP 11 (5-19); ASPARTATE AMINO TRANSFERASE 61 U/L (17-59); BILIRUBIN,DIRECT 0.2 mg/dL (0.0-0.4); BILIRUBIN,TOTAL 0.3 mg/dL (0.2-1.3); BLOOD UREA NITROGEN 5 mg/dL (7-20); CALCIUM 8.5 mg/dL (8.4-10.2); CARBON DIOXIDE 29 mmol/L (22-30); CHLORIDE 90 mmol/L (98-107); CREATININE RESULT 0.46 mg/dL (0.52-1.25); GLUCOSE 74 mg/dL (75-110); POTASSIUM 4.1 mmol/L (3.6-5.0); SODIUM 130.4 mmol/L (137-145); TOTAL PROTEIN 6.3 g/dL (6.3-8.2)
[2017-01-20 16:07] LABS: ALCOHOL 316 mg/dL (NONE DETECTED)
== END 2017-01-20 15:00 | disposition left against medical advice (07) ==
LOC: ER 13:52
DX: J44.1 Chronic obstructive pulmonary disease with (acute) exacerbation (principal); R06.02 Shortness of breath; R05 Cough; F10.920 Alcohol use, unspecified with intoxication, uncomplicated; D72.829 Elevated white blood cell count, unspecified; D64.9 Anemia, unspecified; E87.1 Hypo-osmolality and hyponatremia; F17.200 Nicotine dependence, unspecified, uncomplicated; I25.10 Atherosclerotic heart disease of native coronary artery without angina pectoris; I25.2 Old myocardial infarction; I10 Essential (primary) hypertension
CPT/HCPCS: 36415; 80053; 80307; 82803; 85025; 99281

== ENCOUNTER 2017-01-21 09:06 | Emergency (ER) | payer MEDICARE, MEDICAID ==
--- NOTE | 2017-01-21 09:18 | ER Document Report ---
ED General - General Stated Complaint: DIFFICULTY BREATHING Mode of Arrival: Medic Information source: Patient Notes: 61-year-old male history of COPD presents with complaints of difficulty breathing. Patient has a history of leaving AGAINST MEDICAL ADVICE, was seen 3 times this a.m. left all 3 times. Patient has a history of chronic alcohol abuse as well. Today patient notes shortness of breath is worse denies any fevers or chills nausea vomiting or diarrhea TRAVEL OUTSIDE OF THE [place] IN LAST 30 DAYS: No - HPI Onset: Other Onset/Duration: Persistent Quality of pain: No pain Severity: Moderate Pain Level: Denies Associated symptoms: Nonproductive cough, Shortness of breath Exacerbated by: Walking, Coughing Relieved by: Denies Similar symptoms previously: Yes Recently seen / treated by doctor: Yes - Related Data Allergies/Adverse Reactions: No Known Allergies Allergy (Verified 12/25/16 04:45) Past Medical History - Social History Smoking Status: Current Every Day Smoker Cigarette use (# per day): Yes Chew tobacco use (# tins/day): No Smoking Education Provided: Yes - Patient counselled regarding cessation for 4 minutes Family History: Arthritis, CAD, COPD - Past Medical History Cardiac Medical History: Reports: Hx Coronary Artery Disease, Hx Heart Attack - [place] occured in 2002. Takes ASA now, used to be on hypertensive medications, Hx Hypercholesterolemia, Hx Hypertension Pulmonary Medical History: Reports: Hx Asthma, Hx Bronchitis, Hx COPD, Hx Pneumonia Renal/ Medical History: Denies: Hx Peritoneal Dialysis Musculoskeltal Medical History: Reports Hx Arthritis, Reports Hx Musculoskeletal Deformity, Reports Hx Musculoskeletal Trauma Psychiatric Medical History: Reports: Hx Borderline Personality Disorder, Hx Depression Traumatic Medical History: Reports: Hx Fractures - Left rib fractures with pneumothorax requiring chest tube on 05/23/2016 Past Surgical History: Reports: Hx Cardiac Catheterization - Immunizations Immunizations up to date: Yes Hx Diphtheria, Pertussis, Tetanus Vaccination: - unknown Hx Pneumococcal Vaccination: 02/22/13 Review of Systems - Review of Systems Notes: PHYSICAL EXAMINATION: GENERAL: Chronically ill-appearing male in mild respiratory distress. Satting 89% on room air HEAD: Atraumatic, normocephalic. EYES: Pupils equal round and reactive to light, extraocular movements intact, sclera anicteric, conjunctiva are normal. ENT: Nares patent, oropharynx clear without exudates. Moist mucous membranes. NECK: Normal range of motion, supple without lymphadenopathy LUNGS: Intercostal retractions, coarse rhonchi and wheezing HEART: Regular rate and rhythm without murmurs ABDOMEN: Soft, nontender, nondistended abdomen. No guarding, no rebound. No masses appreciated. Musculoskeletal: Normal range of motion, no pitting or edema. No cyanosis. NEUROLOGICAL: Cranial nerves grossly intact. Normal speech, normal gait. Normal sensory, motor exams PSYCH: Normal mood, normal affect. SKIN: Warm, Dry, normal turgor, no rashes or lesions noted. Physical Exam - Vital signs Vitals: Resp Pulse Ox 16 98 01/21/17 09:24 01/21/17 09:24 Course - Re-evaluation Re-evalutation: 01/21/17 09:17 Patient is currently amenable to having an evaluation performed, this usually leads to him getting blood work and then leaving AGAINST MEDICAL ADVICE, I do hope he wishes to stay this time 01/21/17 10:03 Patient after receiving breathing treatments notes he feels much better wishes to leave AGAINST MEDICAL ADVICE. I unfortunately expected this and I am unhappy that he wishes to leave After performing a Medical Screening Examination, I spoke with the patient at length in regards to leaving the hospital against medical advice. I do not believe the patient should leave but the patient is alert oriented x4, understands the risks and benefits of staying and leaving including disability and . Pt understands that he can return at any time for further care and is more than welcome to do so. Pt verbalizes this understanding. - Vital Signs Vital signs: Temp Pulse Resp BP Pulse Ox 16 98 01/21/17 09:24 01/21/17 09:24 - Laboratory Result Diagrams: 01/21/17 09:24 01/21/17 09:24 - Diagnostic Test Radiology reviewed: Image reviewed, Reports reviewed Discharge - Discharge Clinical Impression: SOB (shortness of breath), Hypoxemia COPD (chronic obstructive pulmonary disease) Qualifiers: COPD type: unspecified COPD Qualified Code(s): J44.9 - Chronic obstructive pulmonary disease, unspecified Condition: Stable Disposition: AGAINST MEDICAL ADVICE Additional Instructions: Follow up with your physician tomorrow for further care or return to the ED IMMEDIATELY if symptoms worsen or new concerns occur. If you cannot afford to follow up with your primary care physician a list of low cost clinics have been provided at the end of your discharge papers as well.
[2017-01-21] MEDS ORDERED: IPRATROPIUM/ALBUTEROL 0.5-2.5 MG/3 ML AMPUL NEB ONE ×2 (09:23→09:24)
[2017-01-21] MEDS ORDERED: METHYLPREDNISOLONE INJ 125 MG/2 ML SDV IV ONE (09:23)
[2017-01-21] MEDS ORDERED: LISINOPRIL 10 MG TABLET PO ONE (09:47)
[2017-01-21 09:48] LABS: ABSOLUTE BASOPHILS # (AUTO) 0.1 10^3/uL (0.0-0.2); ABSOLUTE LYMPHOCYTES (AUTO) 0.8 10^3/uL (0.5-4.7); ABSOLUTE MONOCYTES (AUTO) 1.6 10^3/uL (0.1-1.4); ABSOLUTE NEUT (AUTO) 7.6 10^3/uL (1.7-8.2); BASOPHILS % (AUTO) 0.8 % (0-2); HEMATOCRIT 36.9 % (37.9-51.0); HEMOGLOBIN 12.4 g/dL (13.5-17.0); HGB HCT DIFFERENCE 0.3; LYMPHOCYTES % (AUTO) 8.1 % (13-45); MEAN CORPUSCULAR HGB CONC 33.5 g/dL (32.0-36.0); MEAN CORPUSCULAR VOLUME 90 fl (80-97); MONOCYTES % (AUTO) 15.7 % (3-13); RED BLOOD COUNT 4.12 10^6/uL (4.35-5.55); RED CELL DISTRIBUTION WIDTH 22.2 % (11.5-14.0); SEGMENTED NEUTROPHILS % (AUTO) 75.4 % (42-78); WHITE BLOOD COUNT 10.1 10^3/uL (4.0-10.5)
[2017-01-21 10:04] LABS: ALANINE AMINOTRANSFERASE 54 U/L (21-72); ALBUMIN 3.8 g/dL (3.5-5.0); ALKALINE PHOSPHATASE 117 U/L (38-126); ANION GAP 9 (5-19); ASPARTATE AMINO TRANSFERASE 80 U/L (17-59); BILIRUBIN,DIRECT 0.5 mg/dL (0.0-0.4); BILIRUBIN,TOTAL 0.7 mg/dL (0.2-1.3); BLOOD UREA NITROGEN 8 mg/dL (7-20); CALCIUM 8.9 mg/dL (8.4-10.2); CARBON DIOXIDE 30 mmol/L (22-30); CHLORIDE 94 mmol/L (98-107); CREATINE KINASE 206 U/L (55-170); CREATININE RESULT 0.47 mg/dL (0.52-1.25); GLUCOSE 88 mg/dL (75-110); POTASSIUM 4.5 mmol/L (3.6-5.0); SODIUM 132.7 mmol/L (137-145); TOTAL PROTEIN 7.4 g/dL (6.3-8.2)
[2017-01-21 10:07] VITALS: BP 181/88
[2017-01-21 10:13] LABS: APPEARANCE,URINE CLEAR; BILIRUBIN,URINE NEGATIVE (NEGATIVE); GLUCOSE, URINE NEGATIVE (NEGATIVE); KETONES,URINE TRACE mg/dL (NEGATIVE); LEUKOCYTE ESTERASE,URINE NEGATIVE (NEGATIVE); NITRITE,URINE NEGATIVE (NEGATIVE); PROTEIN,URINE NEGATIVE (NEGATIVE); UROBILINOGEN,URINE NEGATIVE mg/dL (<2.0)
[2017-01-21 10:15] LABS: CREATINE KINASE MB 8.96 ng/mL (<4.55)
[2017-01-21 10:16] LABS: TROPONIN I < 0.012 ng/mL
[2017-01-21 10:24] LABS: ANISOCYTOSIS 3+; PLATELET CLUMPS PRESENT
[2017-01-21 10:26] LABS: POIKILOCYTOSIS 1+; POLYCHROMASIA SLIGHT; TARGET CELLS 1+
--- NOTE | 2017-01-21 21:33 | EKG REPORT ---
SEVERITY:- OTHERWISE NORMAL ECG - SINUS RHYTHM : Confirmed by: Renee Gill 21-Jan-2017 21:32:41
== END 2017-01-21 10:08 | disposition left against medical advice (07) ==
LOC: ER 09:06
DX: J44.9 Chronic obstructive pulmonary disease, unspecified (principal); R09.02 Hypoxemia; R06.02 Shortness of breath; R05 Cough; F17.210 Nicotine dependence, cigarettes, uncomplicated; Z71.6 Tobacco abuse counseling; I25.10 Atherosclerotic heart disease of native coronary artery without angina pectoris; I25.2 Old myocardial infarction; I10 Essential (primary) hypertension; Z87.01 Personal history of pneumonia (recurrent)
CPT/HCPCS: 93005; 94640 ×2; 99285; 96374; 36415; 82553; 82550; 85025; 80053; 81001; 84484; 71010; 93010; J2930; A9270 ×2; J7620

== ENCOUNTER 2017-01-21 14:32 | Emergency (ER) | payer MEDICARE, MEDICAID ==
[2017-01-21] MEDS ORDERED: ALBUTEROL SULFATE HFA (90 MCG/PUFF) 8 GM MDI (1 MDI/ER DISP) IH ONE (14:36)
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
[2017-01-21 15:51] VITALS: BP 148/60
== END 2017-01-21 14:55 | disposition left against medical advice (07) ==
LOC: ER 14:32
DX: J44.1 Chronic obstructive pulmonary disease with (acute) exacerbation (principal); F10.20 Alcohol dependence, uncomplicated; R06.02 Shortness of breath; R05 Cough; F17.210 Nicotine dependence, cigarettes, uncomplicated; Z71.6 Tobacco abuse counseling; I25.10 Atherosclerotic heart disease of native coronary artery without angina pectoris; I25.2 Old myocardial infarction; I10 Essential (primary) hypertension; Z53.20 Procedure and treatment not carried out because of patient's decision for unspecified reasons
CPT/HCPCS: 99406; 99285; J3490

== ENCOUNTER 2017-01-21 21:42 | Emergency (ER) | payer MEDICARE, MEDICAID ==
--- NOTE | 2017-01-21 22:01 | ER Document Report ---
ED Respiratory Problem - General Mode of Arrival: Medic Information source: Patient TRAVEL OUTSIDE OF THE [place] IN LAST 30 DAYS: No - HPI Patient complains to provider of: Other - difficulty breathing Onset: This morning Associated symptoms: Other - See above <RESHMA FROST - Last Filed: 01/21/17 22:02> <JACOBY BLAKE - Last Filed: 01/21/17 23:03> - General Chief Complaint: Breathing Difficulty Stated Complaint: DIFFICULTY BREATHING Time Seen by Provider: 01/21/17 21:51 Notes: Patient is a 61 year old male, a known alcoholic and with a past medical history including COPD, who presents to the emergency department via EMS complaining of difficulty breathing onset this morning. Patient has already been to the ED 2x today for the same complaint, and was here 2x yesterday. Patient reports that the problem worsened this evening, patient also complains of chest pressure. Patient uses an inhaler at home. Patient states that he is hungry and requests a meal, reports that he has not eaten since yesterday even though he has food at home. Per EMS, patient was given Asa and Nitro en route. (RESHMA FROST) - Related Data Allergies/Adverse Reactions: No Known Allergies Allergy (Verified 12/25/16 04:45) Past Medical History - General Information source: Patient - Social History Smoking Status: Current Every Day Smoker Cigarette use (# per day): Yes - 1/2 ppd Family History: Reviewed & Not Pertinent, Arthritis, CAD, COPD - Past Medical History Cardiac Medical History: Reports: Hx Coronary Artery Disease, Hx Heart Attack - [place] occured in 2002. Takes ASA now, used to be on hypertensive medications, Hx Hypercholesterolemia, Hx Hypertension Pulmonary Medical History: Reports: Hx Asthma, Hx Bronchitis, Hx COPD, Hx Pneumonia Musculoskeltal Medical History: Reports Hx Arthritis, Reports Hx Musculoskeletal Deformity, Reports Hx Musculoskeletal Trauma Psychiatric Medical History: Reports: Hx Borderline Personality Disorder, Hx Depression Traumatic Medical History: Reports: Hx Fractures - Left rib fractures with pneumothorax requiring chest tube on 05/23/2016 Past Surgical History: Reports: Hx Cardiac Catheterization - Immunizations Immunizations up to date: Yes Hx Diphtheria, Pertussis, Tetanus Vaccination: - unknown Hx Pneumococcal Vaccination: 02/22/13 <RESHMA FROST - Last Filed: 01/21/17 22:02> Review of Systems - Review of Systems Constitutional: No symptoms reported EENT: No symptoms reported Cardiovascular: See HPI, Chest pain Respiratory: See HPI, Other - breathing difficulty Gastrointestinal: No symptoms reported Genitourinary: No symptoms reported Male Genitourinary: No symptoms reported Musculoskeletal: No symptoms reported Skin: No symptoms reported Hematologic/Lymphatic: No symptoms reported Neurological/Psychological: No symptoms reported -: Yes All other systems reviewed and negative <FROSTRESHMA - Last Filed: 01/21/17 22:02> Physical Exam - Vital signs Interpretation: Normal - General General appearance: Appears well, Alert - HEENT Head: Normocephalic, Atraumatic - Respiratory Respiratory status: No respiratory distress Chest status: Nontender Breath sounds: Decreased air movement - on left Chest palpation: Normal - Cardiovascular Rhythm: Regular Heart sounds: Normal auscultation Murmur: No - Back Back: Normal, Nontender - Extremities General upper extremity: Normal inspection General lower extremity: Normal inspection - Neurological Neuro grossly intact: Yes Cognition: Normal Orientation: AAOx4 [place] Coma Scale Eye Opening: Spontaneous [place] Coma Scale Verbal: Oriented [place] Coma Scale Motor: Obeys Commands Federico Coma Scale Total: 15 Speech: Normal - Psychological Associated symptoms: Normal affect, Normal mood - Skin Skin Temperature: Warm Skin Moisture: Dry Skin Color: Normal <FROSTRESHMA - Last Filed: 01/21/17 22:02> Course - Laboratory Result Diagrams: 01/21/17 21:58 01/21/17 21:58 - EKG Interpretation by [facility] EKG shows normal: Sinus rhythm, Intervals, QRS Complexes, ST-T Waves. abnormal : [place] - Borderline right axis deviation Rate: Normal - 72 Rhythm: NSR <JACOBY BLAKE - Last Filed: 01/21/17 23:03> - Laboratory Laboratory results interpreted by me: 01/21/17 01/21/17 01/21/17 21:58 21:58 21:58 RBC 3.45 L Hgb 10.3 L D Hct 30.7 L RDW 21.2 H Seg Neuts % (Manual) 97 H Lymphocytes % (Manual) 3 L Monocytes % (Manual) 0 L Abs Lymphs (Manual) 0.2 L Abs Monocytes (Manual) 0.0 L Sodium 124.7 L Chloride 88 L BUN 5 L Creatinine 0.48 L Glucose 185 H Calcium 8.0 L Creatine Kinase 265 H CK-MB (CK-2) 9.66 H Total Protein 5.8 L Albumin 3.3 L Discharge <RESHMA FROST - Last Filed: 01/21/17 22:02> <HAYDENJACOBY Negrete - Last Filed: 01/21/17 23:03> - Discharge Clinical Impression: Alcoholism /alcohol abuse Chronic obstructive pulmonary disease Qualifiers: COPD type: unspecified COPD Qualified Code(s): J44.9 - Chronic obstructive pulmonary disease, unspecified Chest pain Qualifiers: Chest pain type: unspecified Qualified Code(s): R07.9 - Chest pain, unspecified Alcohol intoxication Qualifiers: Complication of substance-induced condition: uncomplicated Qualified Code(s): F10.920 - Alcohol use, unspecified with intoxication, uncomplicated Condition: Stable Disposition: HOME, SELF-CARE Additional Instructions: Chest Pain of Unclear Cause: The exact cause of your chest pain isn't clear. Fortunately, there is no evidence of a dangerous medical condition. Further testing may be required to find the source of the pain. Most often, we find that this pain is coming from the chest wall -- the muscles or rib joints in the chest. But chest pain can come from the lung and lung lining, the esophagus, the heart valves or heart lining, and even the stomach or gallbladder. Rest. Eat lightly until the pain is gone. We may prescribe medicine for pain and inflammation. You should call the physician immediately if the pain radiates to the shoulder, jaw or arms; if you start to run a fever or develop a cough; or if you develop shortness of breath, or other new or alarming symptoms. Chronic Obstructive Lung Disease: You have chronic obstructive lung disease (COPD). The symptoms come from emphysema (damage to small airways, with trapping of air in large sacks in the lung) and chronic bronchitis (repeated infection and damage to larger airways). The cause is almost always cigarette smoking, although dust exposure, asthma, and infections contribute. You should avoid fumes, dust, and smoke (especially tobacco smoke). Your condition will flare from time to time. There is no cure, but the symptoms can be treated. Bronchodilators (asthma medicine) are often helpful. Antibiotics help when infection is present. When shortness of breath is severe, we may prescribe cortisone medication. If medicine doesn't help enough, we can arrange for you to have an oxygen tank at home. Notify your doctor at once if sputum becomes thick, foul, or bloody, if you develop a fever or chest pain, or if your shortness of breath worsens. Acute Alcohol Intoxication: Your evaluation revealed very high levels of alcohol. You can from drinking a large amount of alcohol rapidly! Further, there's the risk of falls , traffic accidents, and fights. A high portion (about 50 percent) of the serious injuries seen in hospital emergency rooms are caused by alcohol. Alcohol overdosage is usually due to an underlying emotional or psychiatric problem. You may benefit from counselling. If "binge" drinking is an ongoing problem for you, or if you drink ANY AMOUNT of alcohol EVERY day, you most likely have a tendency to alcoholism. You should avoid alcohol totally. We can refer you for treatment. Persons with alcohol problems are often also prone to other addictions -- you should discuss any use of medications or drugs with the doctor. You should be watched at home for the next several hours by someone who has not been drinking. Get extra fluids for the next 24 hours. Call the doctor if there is repeated vomiting, increasing headache, decreasing level of alertness, or any other worsening. //////////////////////////////////////////////////////////////////////////////// //////////////////////////////////////////////////////////////////////////////// Stop smoking. Stop drinking alcohol. Take your regular medications as prescribed. Follow-up with your primary care provider in the office tomorrow for recheck. Referrals: LESLY BRYAN MD [Primary Care Provider] - Follow up tomorrow Scribe Attestation: 01/21/17 23:03 I personally performed the services described in the documentation, reviewed and edited the documentation which was dictated to the scribe in my presence, and it accurately records my words and actions. (JACOBY BLAKE) Scribe Documentation - Scribe Written by Erika:: erika Nash, [id number] acting as scribe for :: Hayden <RESHMA FROST - Last Filed: 01/21/17 22:02>
[2017-01-21 22:29] LABS: HEMATOCRIT 30.7 % (37.9-51.0); HGB HCT DIFFERENCE 0.2; MEAN CORPUSCULAR HEMOGLOBIN 29.9 pg (27.0-33.4); MEAN CORPUSCULAR HGB CONC 33.6 g/dL (32.0-36.0); MEAN CORPUSCULAR VOLUME 89 fl (80-97); RED BLOOD COUNT 3.45 10^6/uL (4.35-5.55); RED CELL DISTRIBUTION WIDTH 21.2 % (11.5-14.0); WHITE BLOOD COUNT 5.2 10^3/uL (4.0-10.5)
[2017-01-21 22:39] LABS: ALANINE AMINOTRANSFERASE 51 U/L (21-72); ALBUMIN 3.3 g/dL (3.5-5.0); ALCOHOL 233 mg/dL (NONE DETECTED); ALKALINE PHOSPHATASE 85 U/L (38-126); ANION GAP 12 (5-19); ASPARTATE AMINO TRANSFERASE 53 U/L (17-59); BILIRUBIN,DIRECT 0.3 mg/dL (0.0-0.4); BILIRUBIN,TOTAL 0.3 mg/dL (0.2-1.3); BLOOD UREA NITROGEN 5 mg/dL (7-20); CARBON DIOXIDE 25 mmol/L (22-30); CHLORIDE 88 mmol/L (98-107); CREATINE KINASE 265 U/L (55-170); CREATININE RESULT 0.48 mg/dL (0.52-1.25); GLUCOSE 185 mg/dL (75-110); MAGNESIUM 1.9 mg/dL (1.6-2.3); POTASSIUM 4.2 mmol/L (3.6-5.0); SODIUM 124.7 mmol/L (137-145); TOTAL PROTEIN 5.8 g/dL (6.3-8.2)
[2017-01-21 22:51] LABS: CREATINE KINASE MB 9.66 ng/mL (<4.55); TROPONIN I 0.015 ng/mL
[2017-01-21] MEDS ORDERED: IPRATROPIUM/ALBUTEROL 0.5-2.5 MG/3 ML AMPUL NEB ONE (22:53)
[2017-01-21 22:54] LABS: BASOPHILS % (MANUAL) 0 % (0-2); EOSINOPHILS % (MANUAL) 0 % (0-6); LYMPHOCYTES % (MANUAL) 3 % (13-45); TOTAL CELLS COUNTED 100
[2017-01-21 22:55] LABS: ANISOCYTOSIS 2+; HYPOCHROMASIA 1+; OVALOCYTES SLIGHT; POIKILOCYTOSIS SLIGHT; POLYCHROMASIA SLIGHT; TARGET CELLS SLIGHT
[2017-01-21 22:56] LABS: ROULEAUX SLIGHT
[2017-01-21 22:58] LABS: HEMOGLOBIN 10.3 g/dL (13.5-17.0)
[2017-01-21 23:11] VITALS: BP 100/60
--- NOTE | 2017-01-22 17:00 | EKG REPORT ---
SEVERITY:- OTHERWISE NORMAL ECG - SINUS RHYTHM BORDERLINE RIGHT AXIS DEVIATION : Confirmed by: Renee Gill 22-Jan-2017 16:59:27
== END 2017-01-21 23:11 | disposition home or self-care (01) ==
LOC: ER 21:42
DX: J44.9 Chronic obstructive pulmonary disease, unspecified (principal); F10.20 Alcohol dependence, uncomplicated; R07.89 Other chest pain; F17.210 Nicotine dependence, cigarettes, uncomplicated; I25.10 Atherosclerotic heart disease of native coronary artery without angina pectoris; I25.2 Old myocardial infarction; I10 Essential (primary) hypertension; Z79.899 Other long term (current) drug therapy; Z71.6 Tobacco abuse counseling; R09.02 Hypoxemia; R06.02 Shortness of breath; R05 Cough; Z87.01 Personal history of pneumonia (recurrent)
CPT/HCPCS: 93005; 99406; 94640 ×2; 99285; 96374; 36415; 82553; 80307; 82550; 83735; 85025; 80053; 81001; 84484; 71010; 93010; J2930; A9270 ×2; J3490; J7620

== ENCOUNTER 2017-01-22 22:52 | Emergency (ER) | payer MEDICARE, MEDICAID ==
[2017-01-22] MEDS ORDERED: ALBUTEROL SULFATE 0.083% NEB 2.5 MG/3 ML AMPUL NEB ONE (23:12)
[2017-01-22] MEDS ORDERED: NORMAL SALINE 1000 ML 1,000 ML IV ONE (23:12)
[2017-01-22] MEDS ORDERED: DIAZEPAM 5 MG TABLET PO ONE (23:14)
[2017-01-22] MEDS ORDERED: THIAMINE HCL 100 MG in NORMAL SALINE 50 ML IV ONE (23:14)
--- NOTE | 2017-01-22 23:16 | ER Document Report ---
ED General - General Chief Complaint: Shortness Of Breath Stated Complaint: BREATHING DIFFICULTY Time Seen by Provider: 01/22/17 22:59 Notes: Patient is a 61-year-old male who comes this emergency department several times daily who again presents today by EMS with complaints of shortness of breath. Patient is a poor historian and is mildly intoxicated at time of arrival which is also his normal. Note that he continues to smoke heavily and drink heavily. He denies any desire to quit of these behaviors. He is unemployed explain why he continues to come to the emergency department by ambulance and then refused treatment or leave AGAINST MEDICAL ADVICE. Notes that he feels smoking worsens his symptoms. He has been trying an albuterol inhaler intermittently at home without improvement. Denies any chest pain although he did tell EMS that he had chest discomfort. TRAVEL OUTSIDE OF THE [place] IN LAST 30 DAYS: No - Related Data Allergies/Adverse Reactions: No Known Allergies Allergy (Verified 12/25/16 04:45) Past Medical History - General Information source: Patient - Social History Smoking Status: Current Every Day Smoker Frequency of alcohol use: Heavy Drug Abuse: None Family History: Reviewed & Not Pertinent, Arthritis, CAD, COPD Patient has suicidal ideation: No Patient has homicidal ideation: No - Past Medical History Cardiac Medical History: Reports: Hx Coronary Artery Disease, Hx Heart Attack - [place] occured in 2002. Takes ASA now, used to be on hypertensive medications, Hx Hypercholesterolemia, Hx Hypertension Pulmonary Medical History: Reports: Hx Asthma, Hx Bronchitis, Hx COPD, Hx Pneumonia Renal/ Medical History: Denies: Hx Peritoneal Dialysis Musculoskeltal Medical History: Reports Hx Arthritis, Reports Hx Musculoskeletal Deformity, Reports Hx Musculoskeletal Trauma Psychiatric Medical History: Reports: Hx Borderline Personality Disorder, Hx Depression Traumatic Medical History: Reports: Hx Fractures - Left rib fractures with pneumothorax requiring chest tube on 05/23/2016 Past Surgical History: Reports: Hx Cardiac Catheterization - Immunizations Immunizations up to date: Yes Hx Diphtheria, Pertussis, Tetanus Vaccination: - unknown Hx Pneumococcal Vaccination: 02/22/13 Review of Systems - Review of Systems Notes: Constitutional: Negative for fever. HENT: Negative for sore throat. Eyes: Negative for visual changes. Cardiovascular: Negative for chest pain. Respiratory: Positive for shortness of breath. Gastrointestinal: Negative for abdominal pain, vomiting or diarrhea. Genitourinary: Negative for dysuria. Musculoskeletal: Negative for back pain. Skin: Negative for rash. Neurological: Negative for headaches, weakness or numbness. 10 point ROS negative except as marked above and in HPI. Physical Exam - Vital signs Vitals: Temp Pulse Resp BP Pulse Ox 98.9 F 86 27 H 109/56 L 97 01/22/17 23:07 01/22/17 23:07 01/22/17 23:07 01/22/17 23:07 01/22/17 23:07 Interpretation: Tachypneic Notes: PHYSICAL EXAMINATION: GENERAL: Disheveled and smells strongly of tobacco HEAD: Atraumatic, normocephalic. EYES: Pupils equal round and reactive to light, extraocular movements intact, sclera anicteric, conjunctiva are normal. ENT: nares patent, oropharynx clear without exudates. Moist mucous membranes. NECK: Normal range of motion, supple without lymphadenopathy LUNGS: Mild tachypnea but no respiratory distress. Scattered wheezing in all lung lerner. HEART: Regular rate and rhythm without murmurs ABDOMEN: Soft, nontender, normoactive bowel sounds. No guarding, no rebound. No masses appreciated. EXTREMITIES: Normal range of motion, no pitting or edema. No cyanosis. NEUROLOGICAL: No focal neurological deficits. Moves all extremities spontaneously and on command. PSYCH: Normal mood, normal affect. SKIN: Warm, Dry, normal turgor, no rashes or lesions noted. Course - Re-evaluation Re-evalutation: 01/22/17 23:15 Patient presents for the 33rd time in 2017 for complaints of shortness of breath. Patient frequently use the emergency department without overlying complete evaluation. He also leaves AMA anytime he is admitted to the hospital. He returns after receiving Solu-Medrol and 2 DuoNeb's by EMS. At time of my evaluation patient smells of alcohol and tobacco. He is obviously intoxicated. He is in no respiratory distress. Lungs show scattered wheezing in all lung lerner and mildly diminished air movement. Satting 95% on room air. Patient states he will remain in the emergency department to allow for initiation of evaluation and treatment. Will provide 2 g of magnesium, additional albuterol, thiamine, oral Valium to preclude him proceeding into withdrawal, and reassess. 01/22/17 23:52 Patient was smoking in his room while on a nebulizer treatment. This is again a consistent behavior with this patient and demonstrates again that he has no desire to actually get better and does not take his illness seriously. This is the third or fourth time of had a patient where he started smoking in his room and he has capacity as well as has a clear mental state. These are deliberate behaviors. His lung sounds are clear at this time. Once his laboratories have returned he will be discharged. 01/23/17 00:01 Patient is refusing to wait for laboratories, has removed his IV and is now leaving. He will leave AMA. - Vital Signs Vital signs: Temp Pulse Resp BP Pulse Ox 98.9 F 86 27 H 109/56 L 97 01/22/17 23:07 01/22/17 23:07 01/22/17 23:07 01/22/17 23:07 01/22/17 23:07 - Laboratory Result Diagrams: 01/22/17 23:42 01/22/17 23:42 Laboratory results interpreted by me: 01/22/17 23:42 RBC 3.29 L Hgb 9.9 L Hct 29.2 L RDW 20.9 H Lymphocytes % 11.0 L Monocytes % 15.4 H - Diagnostic Test Radiology reviewed: Image reviewed, Reports reviewed Radiology results interpreted by me: 01/22/17 23:54 Chest x-ray: No change from prior. No pneumothorax or infiltrate Discharge - Discharge Clinical Impression: COPD exacerbation, Alcohol abuse, Noncompliance Additional Instructions: You continue to return to this emergency room but refused care when you arrive. You were again smoking in the emergency department today even though you understand this is not an acceptable behavior. This have a behavior places all the staff and your fellow patients at risk. Please return for any additional concerns you may have Referrals: LESLY BRYAN MD [Primary Care Provider] - Follow up as needed
[2017-01-22] MEDS: MAGNESIUM SULFATE/D5W 100 ML IV SCH (23:28)
[2017-01-22 23:54] LABS: ABSOLUTE LYMPHOCYTES (AUTO) 0.7 10^3/uL (0.5-4.7); ABSOLUTE NEUT (AUTO) 4.8 10^3/uL (1.7-8.2); BASOPHILS % (AUTO) 0.2 % (0-2); HEMATOCRIT 29.2 % (37.9-51.0); HEMOGLOBIN 9.9 g/dL (13.5-17.0); HGB HCT DIFFERENCE 0.5; MEAN CORPUSCULAR HGB CONC 33.9 g/dL (32.0-36.0); MEAN CORPUSCULAR VOLUME 89 fl (80-97); MONOCYTES % (AUTO) 15.4 % (3-13); RED BLOOD COUNT 3.29 10^6/uL (4.35-5.55); RED CELL DISTRIBUTION WIDTH 20.9 % (11.5-14.0); SEGMENTED NEUTROPHILS % (AUTO) 73.4 % (42-78); WHITE BLOOD COUNT 6.6 10^3/uL (4.0-10.5)
[2017-01-23 00:01] LABS: ANION GAP 10 (5-19); BLOOD UREA NITROGEN 5 mg/dL (7-20); CALCIUM 8.3 mg/dL (8.4-10.2); CARBON DIOXIDE 26 mmol/L (22-30); CHLORIDE 92 mmol/L (98-107); CREATININE RESULT 0.49 mg/dL (0.52-1.25); GLUCOSE 104 mg/dL (75-110); POTASSIUM 3.9 mmol/L (3.6-5.0); SODIUM 127.9 mmol/L (137-145)
[2017-01-23] MEDS: MAGNESIUM SULFATE/D5W 100 ML IV SCH (00:07)
[2017-01-23 03:04] VITALS: BP 109/54
== END 2017-01-23 00:01 | disposition left against medical advice (07) ==
LOC: ER 22:52
DX: J44.1 Chronic obstructive pulmonary disease with (acute) exacerbation (principal); F10.10 Alcohol abuse, uncomplicated; F17.200 Nicotine dependence, unspecified, uncomplicated; I25.2 Old myocardial infarction; Z79.82 Long term (current) use of aspirin
CPT/HCPCS: 94640; 99285; 96365; 36415; 85025; 80048; 84484; 71010; A9270 ×2; J3475; J7030

== ENCOUNTER 2017-01-23 02:55 | Emergency (ER) | payer MEDICARE, MEDICAID ==
[2017-01-23] MEDS ORDERED: ALBUTEROL SULFATE HFA (90 MCG/PUFF) 8 GM MDI (1 MDI/ER DISP) IH ONE (02:58)
--- NOTE | 2017-01-23 03:02 | ER Document Report ---
ED General - General Stated Complaint: DIFFICULTY BREATHING Time Seen by Provider: 01/23/17 02:58 Notes: Patient is a 61-year-old male who just left the ER after he became upset because basically his cigarettes. His cigarettes were taken away because he started smoking in the hospital room. Patient is well-known to ER. He comes here frequently. He is homeless. He has a history of a copy says well as smoking. He comes frequent complaining of shortness of breath and sometimes chest pain. He currently says that he is short of breath again. He denies having cigarettes within this time. He says that he feels some tightness in his chest which leads to some chest pain. He denies abdominal pain. No vomiting. No fevers. No other complaints at this time. Paramedics say that the patient has been 98% on room air during the transport here. They've not given him any nebulizer treatments here. TRAVEL OUTSIDE OF THE [place] IN LAST 30 DAYS: No - Related Data Allergies/Adverse Reactions: No Known Allergies Allergy (Verified 12/25/16 04:45) Past Medical History - Social History Smoking Status: Current Every Day Smoker Frequency of alcohol use: Heavy Drug Abuse: None Family History: Reviewed & Not Pertinent, Arthritis, CAD, COPD - Past Medical History Cardiac Medical History: Reports: Hx Coronary Artery Disease, Hx Heart Attack - [place] occured in 2002. Takes ASA now, used to be on hypertensive medications, Hx Hypercholesterolemia, Hx Hypertension Pulmonary Medical History: Reports: Hx Asthma, Hx Bronchitis, Hx COPD, Hx Pneumonia Renal/ Medical History: Denies: Hx Peritoneal Dialysis Musculoskeltal Medical History: Reports Hx Arthritis, Reports Hx Musculoskeletal Deformity, Reports Hx Musculoskeletal Trauma Psychiatric Medical History: Reports: Hx Borderline Personality Disorder, Hx Depression Traumatic Medical History: Reports: Hx Fractures - Left rib fractures with pneumothorax requiring chest tube on 05/23/2016 Past Surgical History: Reports: Hx Cardiac Catheterization - Immunizations Immunizations up to date: Yes Hx Diphtheria, Pertussis, Tetanus Vaccination: - unknown Hx Pneumococcal Vaccination: 02/22/13 Review of Systems - Review of Systems Notes: My Normal Review Basic REVIEW OF SYSTEMS: CONSTITUTIONAL : Denies fever, chills, or sweats. Denies recent illness. CARDIOVASCULAR: Some chest tightness Pulmonary: cough. Patient complains of some wheezing. Some dyspnea. MUSCULOSKELETAL: Denies neck or back pain or joint pain or swelling. SKIN: Denies rash or skin lesions. NEUROLOGICAL: Denies altered mental status or loss of consciousness. Denies headache. Denies weakness or paralysis or loss of use of either side. Denies problems with gait or speech. Denies sensory or motor loss. ALL OTHER SYSTEMS REVIEWED AND NEGATIVE. Physical Exam - Vital signs Vitals: Temp Pulse Resp BP Pulse Ox 98.6 F 89 18 117/62 96 01/23/17 03:01 01/23/17 03:01 01/23/17 03:01 01/23/17 03:01 01/23/17 03:01 - Notes Notes: General Appearance: Well nourished, alert, cooperative, no acute distress, no obvious discomfort. Well-appearing without any distress. Vitals: reviewed, See vital signs table. Head: no swelling or tenderness to the head Eyes: PERRL, EOMI, Conjuctiva clear Mouth: No decreasd moisture Neck: Supple, no neck tenderness, No thyromegaly Lungs: Few scattered wheezes., No rales, No rhonci, No accessory muscle use, good air exchange bilaterally. No increased work of breathing. No tachypnea on exam. Heart: Normal rate, Regular rythm, No murmur, no rub Extremities: strength 5/5 in all extremities, good pulses in all extremities, no swelling or tenderness in the extremities, no edema. Skin: warm, dry, appropriate color, no rash Neuro: speech clear, oriented x 3, normal affect, responds appropriately to questions. Course - Vital Signs Vital signs: Temp Pulse Resp BP Pulse Ox 98.6 F 89 18 117/62 96 01/23/17 03:01 01/23/17 03:01 01/23/17 03:01 01/23/17 03:01 01/23/17 03:01 - EKG Interpretation by Me Additional EKG results interpreted by me: 01/23/17 03:10 EKG is reviewed and interpreted by me. EKG shows normal sinus rhythm with a rate of [address] segment elevation or depression. No ischemic T wave inversions. NM level, QRS duration, QTC intervals are within normal range. Old EKG for comparison is from 01/21/2017. - Transfer of Care Notes: 01/23/17 03:37 On reevaluation patient's lungs are completely clear. He is sleeping and resting without any distress. I did wake him up and talk to him. He is feeling improved. I informed him he must return to ER immediately if has recurrent worsening chest pain, difficulty breathing, or wheezing. I did not tachycardic enzymes at this time. His EKG is completely normal. He's been seen here many many times in the past with complaints of wheezing and chest pain. He's had multiple sets of cardiac enzymes in the last 2 weeks which have all been negative. I do not suspect that his chest pain is cardiac related. He is currently chest pain-free. Patient demonstrates understanding of the plan and will be discharged home. Dictation of this chart was performed using voice recognition software; therefore, there may be some unintended grammatical errors. 01/23/17 03:39 Discharge - Discharge Clinical Impression: Dyspnea Qualifiers: Dyspnea type: unspecified Qualified Code(s): R06.00 - Dyspnea, unspecified Chest pain Qualifiers: Chest pain type: unspecified Qualified Code(s): R07.9 - Chest pain, unspecified Condition: Good Disposition: HOME, SELF-CARE Additional Instructions: Please stop smoking. Please use the inhaler as 2 puffs every 4 hours as needed for wheezing. Please return to the ER if you have recurrent wheezing despite using the inhaler, worsening recurrent chest pain, fevers, or feel unwell. Forms: Smoking Cessation Education
[2017-01-23 03:46] VITALS: BP 103/48
--- NOTE | 2017-01-23 13:41 | EKG REPORT ---
SEVERITY:- NORMAL ECG - SINUS RHYTHM : Confirmed by: Renee Gill 23-Jan-2017 13:40:44
== END 2017-01-23 03:45 | disposition home or self-care (01) ==
LOC: ER 02:55
DX: J44.9 Chronic obstructive pulmonary disease, unspecified (principal); R06.02 Shortness of breath; R07.89 Other chest pain; R05 Cough; F17.210 Nicotine dependence, cigarettes, uncomplicated; I25.10 Atherosclerotic heart disease of native coronary artery without angina pectoris; I25.2 Old myocardial infarction; I10 Essential (primary) hypertension; Z59.0 Homelessness; Z87.01 Personal history of pneumonia (recurrent)
CPT/HCPCS: 93005; 99285; 71010; 93010; J3490

== ENCOUNTER 2017-02-07 01:00 | Inpatient (IN) | payer MEDICARE, MEDICAID ==
[2017-02-07] MEDS ORDERED: IPRATROPIUM/ALBUTEROL 0.5-2.5 MG/3 ML AMPUL NEB ONE ×2 (01:05→02:00)
[2017-02-07] MEDS ORDERED: ALBUTEROL SULFATE 0.083% NEB 2.5 MG/3 ML AMPUL NEB SCH (01:20)
--- NOTE | 2017-02-07 01:32 | RADIOLOGY REPORT (SQ) ---
EXAM DESCRIPTION: CHEST SINGLE VIEW COMPLETED DATE/TIME: 02/07/2017 1:19 am REASON FOR STUDY: COPD COMPARISON: 01/23/2017. 09/12/2016. EXAM PARAMETERS: NUMBER OF VIEWS: One view. TECHNIQUE: Single frontal radiographic view of the chest acquired. RADIATION DOSE: NA LIMITATIONS: None. FINDINGS: LUNGS AND PLEURA: [id number] chronic interstitial lung disease pattern. MEDIASTINUM AND HILAR STRUCTURES: No masses. Contour normal. HEART AND VASCULAR STRUCTURES: Heart normal in size. Normal vasculature. BONES: Chronic bilateral rib deformities. HARDWARE: None in the chest. OTHER: No other significant finding. IMPRESSION: No acute cardiopulmonary findings. TECHNICAL DOCUMENTATION: JOB ID: [id number]
--- NOTE | 2017-02-07 01:52 | ER Document Report ---
ED General - General Chief Complaint: Shortness Of Breath Stated Complaint: DIFFICULTY BREATHING Time Seen by Provider: 02/07/17 01:44 Mode of Arrival: Medic Information source: Patient, Emergency Med Personnel TRAVEL OUTSIDE OF THE [place] IN LAST 30 DAYS: No - HPI Notes: Patient is a 61-year-old white male well-known to the emergency department with long-standing history of COPD, hypoxia, alcohol abuse presents emergency department for difficulty breathing. The patient was picked up by EMS and found to have an O2 sat of 85% and they give him nebulizer treatment, IV Solu- Medrol and a DuoNeb. The patient had PCO2 levels in the 30s while in route. On my questioning he reports some chest tightness which he has chronically. He states his dyspnea is improved. He presents with his air brake tester and cigarettes, and has been noted multiple times to the smoking in the emergency department, so these were taken away from him upon arrival. Patient has a long-standing history of noncompliance, but he states he is not out of his nebulizers. He has been recommended for home oxygen due to hypoxia, but has not followed through with this. - Related Data Allergies/Adverse Reactions: No Known Allergies Allergy (Verified 12/25/16 04:45) Past Medical History - General Information source: Patient - Social History Smoking Status: Current Every Day Smoker Smoking Education Provided: Yes Frequency of alcohol use: Heavy Drug Abuse: None Lives with: Family Family History: Reviewed & Not Pertinent, Arthritis, CAD, COPD - Past Medical History Cardiac Medical History: Reports: Hx Coronary Artery Disease, Hx Heart Attack - [place] occured in 2002. Takes ASA now, used to be on hypertensive medications, Hx Hypercholesterolemia, Hx Hypertension Pulmonary Medical History: Reports: Hx Asthma, Hx Bronchitis, Hx COPD, Hx Pneumonia Renal/ Medical History: Denies: Hx Peritoneal Dialysis Musculoskeltal Medical History: Reports Hx Arthritis, Reports Hx Musculoskeletal Deformity, Reports Hx Musculoskeletal Trauma Psychiatric Medical History: Reports: Hx Borderline Personality Disorder, Hx Depression Traumatic Medical History: Reports: Hx Fractures - Left rib fractures with pneumothorax requiring chest tube on 05/23/2016 Past Surgical History: Reports: Hx Cardiac Catheterization - Immunizations Immunizations up to date: Yes Hx Diphtheria, Pertussis, Tetanus Vaccination: - unknown Hx Pneumococcal Vaccination: 02/22/13 Review of Systems - Review of Systems Notes: REVIEW OF SYSTEMS: CONSTITUTIONAL : Denies fever, chills, or sweats. EENT: Denies eye, ear, throat, or mouth pain or symptoms. Denies throat, tongue, or mouth swelling or difficulty swallowing. Reports cough and congestion CARDIOVASCULAR: Denies palpitations or racing or irregular heart beat. Reports chronic bilateral lower extremity edema. RESPIRATORY: Reports cough and congestion. GASTROINTESTINAL: Denies abdominal pain or distention. Denies nausea, vomiting , or diarrhea. Denies blood in vomitus, stools, or per rectum. Denies black, tarry stools. Denies constipation. GENITOURINARY: Denies difficulty urinating, painful urination, burning, frequency, blood in urine, or discharge. MUSCULOSKELETAL: Denies back or neck pain or stiffness. Denies joint pain or swelling. SKIN: Denies rash, lesions or sores. HEMATOLOGIC : Denies easy bruising or bleeding. LYMPHATIC: Denies swollen, enlarged glands. NEUROLOGICAL: Denies confusion or altered mental status. Denies passing out or loss of consciousness. Denies dizziness or lightheadedness. Denies headache. Denies weakness or paralysis or loss of use of either side. Denies problems with gait or speech. Denies sensory loss, numbness, or tingling. Denies seizures. PSYCHIATRIC: Denies anxiety or stress. Denies depression, suicidal ideation, or homicidal ideation. ALL OTHER SYSTEMS REVIEWED AND NEGATIVE. Dictation was performed using [employer] voice recognition software Physical Exam - Vital signs Vitals: Pulse Ox 100 02/07/17 01:21 - Notes Notes: PHYSICAL EXAMINATION: GENERAL: Well-appearing, well-nourished and in no acute distress. Patient somnolent on my questioning, but arousable and answers questions. HEAD: Atraumatic, normocephalic. EYES: Pupils equal round and reactive to light, extraocular movements intact, sclera anicteric, conjunctiva are normal. ENT: Nares patent, oropharynx clear without exudates. Moist mucous membranes. NECK: Normal range of motion, supple without lymphadenopathy no gross JVD.. LUNGS: Barrel chested. Scant expiratory wheeze, no accessory muscle use. No significant rales. HEART: Regular rate and rhythm without murmurs. ABDOMEN: Soft, nontender, nondistended abdomen. No guarding, no rebound. No masses appreciated. Musculoskeletal: Normal range of motion. No cyanosis. 2+ bilateral lower extremity edema. Negative Homans. NEUROLOGICAL: Cranial nerves grossly intact. Normal speech, normal gait. Normal sensory, motor exams. PSYCH: Normal mood, normal affect. SKIN: Warm, Dry, normal turgor, no rashes or lesions noted. Course - Re-evaluation Re-evalutation: 02/07/17 02:09 Patient was given additional DuoNeb. He had already received IV Solu-Medrol. He was taken off of oxygen. See computer downtime charting for rest of chart. 02/15/17 05:39 02/15/17 05:42 - Vital Signs Vital signs: Temp Pulse Resp BP Pulse Ox 30 H 127/87 H 97 02/07/17 08:58 02/07/17 08:47 02/07/17 08:54 - Laboratory Result Diagrams: 02/07/17 01:40 02/07/17 01:40 Laboratory results interpreted by me: 02/07/17 02/07/17 02/07/17 01:40 01:40 03:55 RBC 3.91 L Hgb 11.6 L Hct 34.8 L RDW 18.8 H Carbonic Acid 2.03 H ABG pH 7.26 L ABG pCO2 67.6 H ABG pO2 31.5 L* ABG HCO3 29.8 H ABG Total CO2 31.9 H ABG O2 Saturation 50.1 L Sodium 120.1 L* Chloride 84 L Creatinine 0.51 L Calcium 7.7 L AST 92 H Discharge - Discharge Clinical Impression: COPD with acute exacerbation, Tobacco abuse Disposition: ADMITTED INPATIENT
[2017-02-07 02:09] LABS: MEAN CORPUSCULAR VOLUME 89 fl (80-97)
[2017-02-07 02:13] LABS: ALANINE AMINOTRANSFERASE 64 U/L (21-72); ALBUMIN 3.9 g/dL (3.5-5.0); ALKALINE PHOSPHATASE 97 U/L (38-126); ANION GAP 8 (5-19); ASPARTATE AMINO TRANSFERASE 92 U/L (17-59); BILIRUBIN,DIRECT 0.4 mg/dL (0.0-0.4); BILIRUBIN,TOTAL 0.4 mg/dL (0.2-1.3); BLOOD UREA NITROGEN 9 mg/dL (7-20); CALCIUM 7.7 mg/dL (8.4-10.2); CARBON DIOXIDE 28 mmol/L (22-30); CHLORIDE 84 mmol/L (98-107); CREATININE RESULT 0.51 mg/dL (0.52-1.25); GLUCOSE 77 mg/dL (75-110); MAGNESIUM 1.8 mg/dL (1.6-2.3); POTASSIUM 4.4 mmol/L (3.6-5.0); TOTAL PROTEIN 6.9 g/dL (6.3-8.2)
[2017-02-07 02:15] LABS: ABSOLUTE BASOPHILS # (AUTO) 0.1 10^3/uL (0.0-0.2); ABSOLUTE MONOCYTES (AUTO) 0.8 10^3/uL (0.1-1.4); ABSOLUTE NEUT (AUTO) 3.9 10^3/uL (1.7-8.2); BASOPHILS % (AUTO) 1.5 % (0-2); EOSINOPHILS % (AUTO) 0.2 % (0-6); HEMATOCRIT 34.8 % (37.9-51.0); HEMOGLOBIN 11.6 g/dL (13.5-17.0); LYMPHOCYTES % (AUTO) 17.7 % (13-45); MEAN CORPUSCULAR HEMOGLOBIN 29.6 pg (27.0-33.4); MEAN CORPUSCULAR HGB CONC 33.3 g/dL (32.0-36.0); RED BLOOD COUNT 3.91 10^6/uL (4.35-5.55); RED CELL DISTRIBUTION WIDTH 18.8 % (11.5-14.0); SEGMENTED NEUTROPHILS % (AUTO) 67.6 % (42-78); WHITE BLOOD COUNT 5.8 10^3/uL (4.0-10.5)
[2017-02-07 02:27] LABS: SODIUM 120.1 mmol/L (137-145); TROPONIN I 0.036 ng/mL
--- NOTE | 2017-02-07 03:41 | RADIOLOGY REPORT (SQ) ---
EXAM DESCRIPTION: CT HEAD WITHOUT COMPLETED DATE/TIME: 02/07/2017 3:30 am REASON FOR STUDY: altered level of consciousness COMPARISON: 01/10/2017. TECHNIQUE: Axial images acquired through the brain without intravenous contrast. Images reviewed wi th bone, brain and subdural windows. Images stored on PACS. All CT scanners at this facility use dose modulation, iterative reconstruction, and/or weight based d osing when appropriate to reduce radiation dose to as low as reasonably achievable (ALARA). [facility]: Dose Right [facility]: CareDose [facility]: Dose Right [facility]: Teradose 4D [facility]: EyeNetra RADIATION DOSE: 55.22 mGy. LIMITATIONS: Positioning. FINDINGS: VENTRICLES: Normal size and contour. CEREBRUM: No masses. No hemorrhage. No midline shift. Normal osorio/white matter differentiation. N o evidence for acute infarction. CEREBELLUM: No masses. No hemorrhage. No alteration of density. No evidence for acute infarction. EXTRAAXIAL SPACES: No fluid collections. No masses. ORBITS AND GLOBE: No intra- or extraconal masses. Normal contour of globe without masses. CALVARIUM: No fracture. PARANASAL SINUSES: No fluid or mucosal thickening. SOFT TISSUES: No mass or hematoma. OTHER: No other significant finding. IMPRESSION: NORMAL BRAIN CT WITHOUT CONTRAST. TECHNICAL DOCUMENTATION: JOB ID: [id number] Quality ID # [id number]: Final reports with documentation of one or more dose reduction techniques (e.g., Au tomated exposure control, adjustment of the mA and/or kV according to patient size, use of iterative reconstruction technique) 2010 [employer]- All Rights Reserved
[2017-02-07] MEDS ORDERED: NORMAL SALINE 1000 ML 1,000 ML IV ONE (03:58)
[2017-02-07 04:12] LABS: ARTERIAL BLOOD BASE EXCESS 1.4 mmol/L; ARTERIAL BLOOD O2 SATURATION 50.1 % (94-98)
[2017-02-07] MEDS ORDERED: ACETAMINOPHEN 325 MG TABLET PO PRN (06:31)
[2017-02-07] MEDS ORDERED: GUAIFENESIN SYRP 200 MG/10 ML UDC PO PRN (06:31)
[2017-02-07] MEDS ORDERED: IPRATROPIUM/ALBUTEROL 0.5-2.5 MG/3 ML AMPUL NEB PRN (06:31)
--- NOTE | 2017-02-07 07:31 | PDOC H&P ---
History of Present Illness Admission Date/PCP: 02/07/17 07:13 Patient complains of: Shortness of breath History of Present Illness: LEIF NUÑEZ is a 61 year old male with a past medical history of severe alcohol dependence, consuming 2 cases of beer per day, severe COPD with persistent tobacco dependence, coronary artery disease with stenting remotely, recurrent noncompliance and AMA. Patient presents after being found hypoxic and intoxicated. In the emergency room he was found to have altered mental status with acute alcohol intoxication, hypoxia and hyponatremia. He is disheveled and unable to provide history and referred to the hospitalist for admission. Past Medical History Cardiac Medical History: Reports: Coronary Artery Disease, Myocardial Infarction - [place] occured in 2002. Takes ASA now, used to be on hypertensive medications, Hyperlipidema, Hypertension Pulmonary Medical History: Reports: Asthma, Bronchitis, Chronic Obstructive Pulmonary Disease (COPD), Pneumonia Musculoskeltal Medical History: Reports: Arthritis Psychiatric Medical History: Reports: Depression Past Surgical History Past Surgical History: Reports: Cardiac Catheterization Social History Lives with: Family Smoking Status: Current Every Day Smoker Frequency of Alcohol Use: Heavy Hx Recreational Drug Use: No Drugs: None Hx Prescription Drug Abuse: No Family History Family History: Reviewed & Not Pertinent, Arthritis, CAD, COPD Parental Family History Reviewed: No - Unobtainable Children Family History Reviewed: Unknown - Unobtainable Sibling(s) Family History Reviewed.: Unknown - Available Medication/Allergy Home Medications: Clopidogrel Bisulfate [Plavix 75 mg Tablet] 75 mg PO DAILY tablet 11/01/16 Prednisone [Deltasone 20 mg Tablet] 3 tab PO DAILY 5 Days 11/04/16 Albuterol Sulfate [Proair HFA] 1 - 2 puff IH Q4 PRN #1 inhaler 11/30/16 Amoxicillin Trihydrate [Amoxil 500 mg Capsule] 500 mg PO TID #30 cap 11/30/16 Prednisone [Deltasone 20 mg Tablet] 3 tab PO DAILY 5 Days 11/30/16 Azithromycin [Zithromax 250 mg Tablet] 250 mg PO DAILY 4 Days 01/10/17 Prednisone [Deltasone 20 mg Tablet] 2 tab PO DAILY 5 Days 01/10/17 Prednisone [Deltasone 20 mg Tablet] 3 tab PO DAILY 5 Days 01/17/17 Allergies/Adverse Reactions: No Known Allergies Allergy (Verified 12/25/16 04:45) Review of Systems ROS unobtainable: Due to mental status - Unobtainable Constitutional: ABSENT: chills, fever(s), headache(s), weight gain, weight loss Eyes: ABSENT: visual disturbances Ears: ABSENT: hearing changes Cardiovascular: ABSENT: chest pain, dyspnea on exertion, edema, orthropnea, palpitations Respiratory: ABSENT: cough, hemoptysis Gastrointestinal: ABSENT: abdominal pain, constipation, diarrhea, hematemesis, hematochezia, nausea, vomiting Genitourinary: ABSENT: dysuria, hematuria Musculoskeletal: ABSENT: joint swelling Integumentary: ABSENT: rash, wounds Neurological: ABSENT: abnormal gait, abnormal speech, confusion, dizziness, focal weakness, syncope Psychiatric: ABSENT: anxiety, depression, homidical ideation, suicidal ideation Endocrine: ABSENT: cold intolerance, heat intolerance, polydipsia, polyuria Hematologic/Lymphatic: ABSENT: easy bleeding, easy bruising Physical Exam Vital Signs: Temp Pulse Resp BP Pulse Ox 16 129/70 H 92 02/07/17 07:20 02/07/17 07:16 02/07/17 07:20 General appearance: PRESENT: disheveled, mild distress, thin. ABSENT: cooperative Head exam: PRESENT: atraumatic, normocephalic Eye exam: PRESENT: conjunctiva pink, EOMI, PERRLA. ABSENT: scleral icterus Ear exam: PRESENT: normal external ear exam Mouth exam: PRESENT: moist, tongue midline Neck exam: ABSENT: carotid bruit, JVD, lymphadenopathy, thyromegaly Respiratory exam: PRESENT: accessory muscle use, crackles, decreased breath sounds, prolonged expiratory phas, retraction, tachypnea Cardiovascular exam: PRESENT: RRR. ABSENT: diastolic murmur, rubs, systolic murmur Pulses: PRESENT: normal dorsalis pedis pul Vascular exam: PRESENT: normal capillary refill GI/Abdominal exam: PRESENT: normal bowel sounds, soft. ABSENT: distended, guarding, mass, organolmegaly, rebound, tenderness Rectal exam: PRESENT: deferred Extremities exam: PRESENT: +1 edema, other - Skin tears and bruising all 4 extremities Neurological exam: PRESENT: altered, CN II-XII grossly intact Skin exam: PRESENT: other - Ecchymosis and skin tears to all 4 extremities Results Impressions: Chest X-Ray 02/07/17 01:05 IMPRESSION: No acute cardiopulmonary findings. Head CT 02/07/17 02:46 IMPRESSION: NORMAL BRAIN CT WITHOUT CONTRAST. Assessment & Plan - Diagnosis (1) Acute and chronic respiratory failure with hypoxia Is this a current diagnosis for this admission?: YesPlan: Secondary to noncompliance, acute on chronic bronchitis, initiate DuoNeb, empiric antibiotics flutter valve as tolerated and tobacco avoidance, (2) Alcohol withdrawal Qualifiers: Complication of substance-induced condition: uncomplicated Qualified Code(s): F10.230 - Alcohol dependence with withdrawal, uncomplicated Is this a current diagnosis for this admission?: YesPlan: Ativan and thiamine with folate (3) Tobacco abuse Is this a current diagnosis for this admission?: YesPlan: Tobacco Dependence patient received tobacco cessation counseling and offered nicotine replacement options (4) ETOH abuse Is this a current diagnosis for this admission?: YesPlan: Alcohol cessation counseling when mental status clears (5) Hyponatremia Is this a current diagnosis for this admission?: YesPlan: Likely volume overload serum and urine osmolarity pending fluid restriction initiated follow-up with chemistry every 6 hours for reevaluation - Time Time Spent: 50 to 70 Minutes - Inpatient Certification Medical Necessity: Need Close Monitoring Due to Risk of Patient Decompensation
--- NOTE | 2017-02-07 07:50 | EKG REPORT ---
SEVERITY:- NORMAL ECG - SINUS RHYTHM : Confirmed by: Lázaro De La Garza MD 07-Feb-2017 07:50:26
[2017-02-07] MEDS ORDERED: IPRATROPIUM/ALBUTEROL 0.5-2.5 MG/3 ML AMPUL NEB SCH (08:00)
[2017-02-07 09:25] VITALS: BP 127/87
[2017-02-07] MEDS ORDERED: LEVOFLOXACIN 750 MG/D5W RTU 150 ML IV SCH (10:00)
[2017-02-07] MEDS ORDERED: CLOPIDOGREL BISULFATE 75 MG TABLET PO SCH (10:00)
[2017-02-07] MEDS ORDERED: THIAMINE HCL 100 MG, FOLIC ACID 1 MG in NORMAL SALINE 50 ML IV SCH (10:00)
[2017-02-07] MEDS ORDERED: GUAIFENESIN 600 MG TABLET.SA PO SCH (10:00)
[2017-02-07] MEDS ORDERED: HEPARIN SOD (PORCINE) 5,000 UNIT/ML 1 ML SYRINGE SUBCUT SCH (14:00)
--- NOTE | 2017-03-05 11:19 | PDOC DISCHARGE SUMMARY ---
General - Admit/Disc Date/PCP Admission Date/Primary Care Provider: 02/07/17 06:54 Discharge Date: 02/07/17 - Discharge Diagnosis (1) COPD exacerbation Is this a current diagnosis for this admission?: Yes - Additional Information Resuscitation Status: Full Code Home Medications: Albuterol Sulfate [Ventolin HFA MDI 18 GM] 2 puff IH Q4HP PRN 02/07/17 Alprazolam [Xanax 0.5 mg Tablet] 0.5 mg PO QHS 02/07/17 Budesonide/Formoterol Fumarate [Symbicort HFA 160-4.5 mcg Inhaler 6 gm] 2 puff IH Q12 02/07/17 Levothyroxine Sodium [Synthroid 0.075 mg Tablet] 0.075 mg PO DAILY 02/07/17 Lisinopril [Prinivil] 20 mg PO DAILY 02/07/17 Tiotropium Bacova [Spiriva Respimat] 2 puff IH DAILY 02/07/17 Clopidogrel Bisulfate [Clopidogrel] 75 mg PO DAILY 02/11/17 Rosuvastatin Calcium 20 mg PO DAILY 02/11/17 Cyanocobalamin/Folic Acid [Vitamin B-12 & Folic Acid Tablet] 1 each PO DAILY # 30 tablet 02/12/17 Ferrous Sulfate [Feosol 325 mg Tablet] 325 mg PO DAILY #30 tablet 02/12/17 Thiamine HCl [Thiamine 100 mg Tablet] 100 mg PO DAILY #30 tablet 02/12/17 Calcium Carbonate/Vitamin D3 [Calcium 500 + Vit D Caplet] 1 tab PO BID 02/21/17 Oxycodone HCl/Acetaminophen [Oxycodon-Acetaminophen 7.5-325] 1 tab PO Q6HP PRN 02/21/17 Albuterol Sulfate [Proair HFA Inhalation Aerosol 8.5 gm MDI] 2 puff IH Q4H PRN # 1 mdi 02/23/17 Prednisone 40 mg PO DAILY #6 tablet 02/23/17 History of Present Illness History of Present Illness: LEIF NUÑEZ is a 61 year old male Hospital Course Hospital Course: The patient left AGAINST MEDICAL ADVICE prior to me evaluating this patient Physical Exam Vital Signs: Temp Pulse Resp BP Pulse Ox 30 H 127/87 H 97 02/07/17 08:58 02/07/17 08:47 02/07/17 08:54 Results Impressions: Chest X-Ray 02/07/17 01:05 IMPRESSION: No acute cardiopulmonary findings. Head CT 02/07/17 02:46 IMPRESSION: NORMAL BRAIN CT WITHOUT CONTRAST. Qualifiers PATEINT BEING DISCHARGED WITH ANY OF THE FOLLOWING DIAGNOSIS?: No Plan Discharge Plan: Patient left AGAINST MEDICAL ADVICE prior to me evaluating this patient Time Spent: Less than 30 Minutes
== END 2017-02-07 09:26 | disposition left against medical advice (07) | DRG 190 ==
LOC: ER 01:00 → EH 06:54 → UNDOADMIN 07:13
PROVIDERS: ADMIT Internal Medicine; ATTEND Internal Medicine
DX: J44.1 Chronic obstructive pulmonary disease with (acute) exacerbation (principal); J96.21 Acute and chronic respiratory failure with hypoxia; E87.1 Hypo-osmolality and hyponatremia; F10.239 Alcohol dependence with withdrawal, unspecified; I25.10 Atherosclerotic heart disease of native coronary artery without angina pectoris; E78.5 Hyperlipidemia, unspecified; I10 Essential (primary) hypertension; F17.210 Nicotine dependence, cigarettes, uncomplicated; F10.229 Alcohol dependence with intoxication, unspecified; Y90.7 Blood alcohol level of 200-239 mg/100 ml; I25.2 Old myocardial infarction; Z91.19 Patient's noncompliance with other medical treatment and regimen; Z79.01 Long term (current) use of anticoagulants; Z79.51 Long term (current) use of inhaled steroids; Z79.52 Long term (current) use of systemic steroids
CPT/HCPCS: 36415; 70450; 71010; 80053; 80307; 82803; 83735; 83880; 83930; 84484; 85025; 93005; 93010; 94640; 96360; 99284; 99285; J3490; J7030; J7620

== ENCOUNTER 2017-02-07 12:55 | Emergency (ER) | payer MEDICARE, MEDICAID ==
[2017-02-07 13:07] VITALS: BP 105/52
[2017-02-07] MEDS ORDERED: IPRATROPIUM/ALBUTEROL 0.5-2.5 MG/3 ML AMPUL NEB ONE (13:08)
[2017-02-07] MEDS ORDERED: ALBUTEROL SULFATE HFA (90 MCG/PUFF) 8 GM MDI (1 MDI/ER DISP) IH ONE (13:08)
--- NOTE | 2017-02-07 13:12 | ER Document Report ---
ED General - General Mode of Arrival: Ambulatory TRAVEL OUTSIDE OF THE [place] IN LAST 30 DAYS: No - HPI Onset/Duration: Persistent Similar symptoms previously: Yes Recently seen / treated by doctor: Yes <YANET GRANDA - Last Filed: 02/07/17 13:48> <ARTEMIO AVILES - Last Filed: 02/07/17 14:26> - General Chief Complaint: ETOH Abuse Stated Complaint: WITHDRAWAL Time Seen by Provider: 02/07/17 13:01 Notes: Patient is a 61-year-old male who is well-known to this emergency department for similar presentations who presents today with complaints shortness of breath. Patient is intoxicated. Patient is a poor historian so history is limited. (YANET GRANDA) - Related Data Allergies/Adverse Reactions: No Known Allergies Allergy (Verified 12/25/16 04:45) Past Medical History - General Information source: [facility] Records Cannot obtain history due to: Intoxicated - Social History Smoking Status: Current Every Day Smoker Cigarette use (# per day): Yes Frequency of alcohol use: Heavy Family History: Reviewed & Not Pertinent, Arthritis, CAD, COPD - Past Medical History Cardiac Medical History: Reports: Hx Coronary Artery Disease, Hx Heart Attack - [place] occured in 2002. Takes ASA now, used to be on hypertensive medications, Hx Hypercholesterolemia, Hx Hypertension Pulmonary Medical History: Reports: Hx Asthma, Hx Bronchitis, Hx COPD, Hx Pneumonia Musculoskeltal Medical History: Reports Hx Arthritis, Reports Hx Musculoskeletal Deformity, Reports Hx Musculoskeletal Trauma Psychiatric Medical History: Reports: Hx Borderline Personality Disorder, Hx Depression Traumatic Medical History: Reports: Hx Fractures - Left rib fractures with pneumothorax requiring chest tube on 05/23/2016 Past Surgical History: Reports: Hx Cardiac Catheterization - Immunizations Immunizations up to date: Yes Hx Diphtheria, Pertussis, Tetanus Vaccination: - unknown Hx Pneumococcal Vaccination: 02/22/13 <YANET GRANDA - Last Filed: 02/07/17 13:48> Review of Systems - Review of Systems -: Yes ROS unobtainable due to patient's medical condition - intoxicated Respiratory: See HPI, Short of breath <YANET GRANDA - Last Filed: 02/07/17 13:48> Physical Exam - Vital signs Interpretation: Hypotensive, Hypoxic. No: Tachypneic - General General appearance: Alert In distress: None - Respiratory Respiratory status: No respiratory distress Chest status: Nontender Breath sounds: Wheezing - SLIGHT EXPIRATORY B/L - Cardiovascular Rhythm: Regular - Extremities General upper extremity: Nontender, Normal color, Normal ROM, Normal temperature General lower extremity: Nontender, Normal color, Normal ROM, Normal temperature , Normal weight bearing. No: Sylvia's sign - Neurological Neuro grossly intact: Yes Orientation: AAOx4 Federico Coma Scale Verbal: Oriented Speech: Normal Cranial nerves: Normal - Skin Skin Temperature: Warm Skin Moisture: Dry Skin Color: Normal <ARTEMIO AVILES - Last Filed: 02/07/17 14:26> - Vital signs Vitals: Temp Pulse Resp BP Pulse Ox 98.3 F 83 18 105/52 L 85 L 02/07/17 13:02 02/07/17 13:02 02/07/17 13:02 02/07/17 13:02 02/07/17 13:02 Course <YANET GRANDA - Last Filed: 02/07/17 13:48> <ARTEMIO AVILES - Last Filed: 02/07/17 14:26> - Re-evaluation Re-evalutation: 02/07/17 13:00 Patient is a 61-year-old male who is well-known to this emergency department. Patient signed out AGAINST MEDICAL ADVICE from the hospital this morning he was admitted for hyponatremia. Patient has chronic COPD. Patient has a oxygen saturation between 85 and 92% he is in no respiratory distress. Patient does not want an IV and he does not want any monitor on him. He states that he wants to go. He has been given an albuterol inhaler and Gatorade. Ambulates around the room and is currently urinating in the trash can. (ARTEMIO AVILES) - Vital Signs Vital signs: Temp Pulse Resp BP Pulse Ox 98.3 F 83 18 105/52 L 94 02/07/17 13:02 02/07/17 13:02 02/07/17 13:02 02/07/17 13:02 02/07/17 13:04 Discharge <YANET GRANDA - Last Filed: 02/07/17 13:48> <ARTEMIO AVILES - Last Filed: 02/07/17 14:26> - Discharge Clinical Impression: COPD (chronic obstructive pulmonary disease) Qualifiers: COPD type: unspecified COPD Qualified Code(s): J44.9 - Chronic obstructive pulmonary disease, unspecified Condition: Stable Disposition: AGAINST MEDICAL ADVICE Instructions: Chronic Obstructive Lung Disease ([facility]) Scribe Attestation: 02/07/17 14:26 I personally performed the services described in the documentation, reviewed and edited the documentation which was dictated to the scribe in my presence, and it accurately records my words and actions. (ARTEMIO AVILES) Scribe Documentation - Scribe Written by Scribe:: Fred Mariano, 02/07/17 1351 acting as scribe for :: Jose <YANET GRANDA - Last Filed: 02/07/17 13:48>
== END 2017-02-07 13:22 | disposition left against medical advice (07) ==
LOC: ER 12:55
DX: J44.9 Chronic obstructive pulmonary disease, unspecified (principal); R06.02 Shortness of breath; R09.02 Hypoxemia; I95.9 Hypotension, unspecified; F10.129 Alcohol abuse with intoxication, unspecified; F17.210 Nicotine dependence, cigarettes, uncomplicated; I25.10 Atherosclerotic heart disease of native coronary artery without angina pectoris; I25.2 Old myocardial infarction; I10 Essential (primary) hypertension
CPT/HCPCS: 99284; J3490

== ENCOUNTER 2017-02-08 09:58 | Inpatient (IN) | payer MEDICARE, MEDICAID ==
--- NOTE | 2017-02-08 10:34 | ER Document Report ---
ED Substance Abuse / Acc. OD - General Mode of Arrival: Medic Information source: [employer] TRAVEL OUTSIDE OF THE [place] IN LAST 30 DAYS: No - HPI Patient complains to provider of: Alcohol abuse Associated Symptoms: Other - See above <RESHMA FROST - Last Filed: 02/08/17 10:29> <JACOBY BLAKE - Last Filed: 02/08/17 12:43> - General Chief Complaint: ETOH Abuse Stated Complaint: EtOH abuse Time Seen by Provider: 02/08/17 10:14 Notes: Patient is a 61 year old male who is well known in the ED for alcohol abuse who presents with [employer] for intoxication. Patient was found by [employer] crawling out of the bushes and has since defecated on himself, he is currently asleep and not easily aroused during exam. Patient was seen at the ED twice yesterday, he was first admitted for hyponatremia, he left AMA and and then came back to ED intoxicated. (RESHMA FROST) - Related Data Allergies/Adverse Reactions: No Known Allergies Allergy (Verified 12/25/16 04:45) Past Medical History - General Information source: Patient Cannot obtain history due to: Intoxicated - Social History Smoking Status: Unknown if Ever Smoked Family History: Reviewed & Not Pertinent, Arthritis, CAD, COPD - Past Medical History Cardiac Medical History: Reports: Hx Coronary Artery Disease, Hx Heart Attack - [place] occured in 2002. Takes ASA now, used to be on hypertensive medications, Hx Hypercholesterolemia, Hx Hypertension Pulmonary Medical History: Reports: Hx Asthma, Hx Bronchitis, Hx COPD, Hx Pneumonia Musculoskeltal Medical History: Reports Hx Arthritis, Reports Hx Musculoskeletal Deformity, Reports Hx Musculoskeletal Trauma Psychiatric Medical History: Reports: Hx Borderline Personality Disorder, Hx Depression Traumatic Medical History: Reports: Hx Fractures - Left rib fractures with pneumothorax requiring chest tube on 05/23/2016 Past Surgical History: Reports: Hx Cardiac Catheterization - Immunizations Immunizations up to date: Yes Hx Diphtheria, Pertussis, Tetanus Vaccination: - unknown Hx Pneumococcal Vaccination: 02/22/13 <RESHMA FROST - Last Filed: 02/08/17 10:29> Review of Systems - Review of Systems -: Yes ROS unobtainable due to patient's medical condition - intoxicated <RESHMA FROST - Last Filed: 02/08/17 10:29> Physical Exam - Vital signs Interpretation: Normal - General General appearance: Other - asleep, smells of EtOH and stool - HEENT Head: Normocephalic, Atraumatic Eyes: Normal - pupils small and reactive - Respiratory Respiratory status: No respiratory distress Chest status: Nontender Breath sounds: Wheezing - mild expiratory and inspiratory Chest palpation: Normal - Cardiovascular Rhythm: Regular Heart sounds: Normal auscultation Murmur: No - Extremities General upper extremity: Normal inspection General lower extremity: Normal inspection - Skin Skin Temperature: Warm Skin Moisture: Dry Skin Color: Normal <RESHMA FROST - Last Filed: 02/08/17 10:29> Course <RESHMA FROST - Last Filed: 02/08/17 10:29> - Laboratory Result Diagrams: 02/08/17 10:38 02/08/17 10:38 - EKG Interpretation by Mi EKG shows normal: Sinus rhythm, [place], Intervals, QRS Complexes, ST-T Waves Rate: Normal - 72 Rhythm: NSR When compared to previous EKG there are: No significant change - Consults Dr. Orozco Time consulted: 12:00 Consulted provider: will come to ER <JACOBY BLAKE - Last Filed: 02/08/17 12:43> - Re-evaluation Re-evalutation: 02/08/17 12:02 Serum sodium is now down to 116. He will be given 3% normal saline at 50 mL/h. He will be restrained if necessary for his own protection, as he remains intoxicated, and he will try to leave or sign out AMA as soon as he gets the chance. (JACOBY BLAKE) - Vital Signs Vital signs: Temp Pulse Resp BP Pulse Ox 97.3 F 66 12 120/69 97 02/08/17 10:05 02/08/17 10:05 02/08/17 10:05 02/08/17 10:05 02/08/17 10:05 - Laboratory Laboratory results interpreted by mi: 02/08/17 02/08/17 02/08/17 10:38 10:38 10:38 RBC 3.50 L Hgb 10.3 L Hct 30.8 L RDW 18.9 H Lymphocytes % (Manual) 10 L Monocytes % (Manual) 19 H Abs Monocytes (Manual) 1.5 H Sodium 116.0 L* Chloride 78 L Carbon Dioxide 31 H BUN 3 L Creatinine 0.44 L Glucose 65 L Calcium 7.6 L AST 102 H Creatine Kinase 496 H CK-MB (CK-2) Total Protein 6.2 L 02/08/17 10:38 RBC Hgb Hct RDW Lymphocytes % (Manual) Monocytes % (Manual) Abs Monocytes (Manual) Sodium Chloride Carbon Dioxide BUN Creatinine Glucose Calcium AST Creatine Kinase CK-MB (CK-2) 16.10 H Total Protein Critical Care Note - Critical Care Note Total time excluding time spent on procedures (mins): 30 <JACOBY BLAKE - Last Filed: 02/08/17 12:43> Discharge <RESHMA FROST - Last Filed: 02/08/17 10:29> - Discharge Admitting Provider: Hospitalist Unit Admitted: [facility] <JACOBY BLAKE - Last Filed: 02/08/17 12:43> - Discharge Clinical Impression: Hyponatremia, Tobacco abuse, Hypocalcemia Alcohol intoxication Qualifiers: Complication of substance-induced condition: with unspecified complication Qualified Code(s): F10.929 - Alcohol use, unspecified with intoxication, unspecified COPD (chronic obstructive pulmonary disease) Qualifiers: COPD type: unspecified COPD Qualified Code(s): J44.9 - Chronic obstructive pulmonary disease, unspecified Rhabdomyolysis Qualifiers: Rhabdomyolysis type: non-traumatic Qualified Code(s): M62.82 - Rhabdomyolysis Condition: Fair Disposition: ADMITTED INPATIENT Scribe Attestation: 02/08/17 12:30 I personally performed the services described in the documentation, reviewed and edited the documentation which was dictated to the scribe in my presence, and it accurately records my words and actions. (JACOBY BLAKE) Scribe Documentation - Scribe Written by Carloe:: erika Nash, 02/08/17, 1035 acting as scribe for :: Margoth <RESHMA FROST - Last Filed: 02/08/17 10:29>
[2017-02-08 10:52] LABS: HEMATOCRIT 30.8 % (37.9-51.0); HEMOGLOBIN 10.3 g/dL (13.5-17.0); HGB HCT DIFFERENCE 0.1; MEAN CORPUSCULAR HEMOGLOBIN 29.4 pg (27.0-33.4); MEAN CORPUSCULAR HGB CONC 33.4 g/dL (32.0-36.0); MEAN CORPUSCULAR VOLUME 88 fl (80-97); RED CELL DISTRIBUTION WIDTH 18.9 % (11.5-14.0)
[2017-02-08 11:13] LABS: ALANINE AMINOTRANSFERASE 65 U/L (21-72); ALBUMIN 3.5 g/dL (3.5-5.0); ALCOHOL 260 mg/dL (NONE DETECTED); ALKALINE PHOSPHATASE 91 U/L (38-126); ANION GAP 7 (5-19); ASPARTATE AMINO TRANSFERASE 102 U/L (17-59); BILIRUBIN,DIRECT 0.4 mg/dL (0.0-0.4); BILIRUBIN,TOTAL 0.4 mg/dL (0.2-1.3); BLOOD UREA NITROGEN 3 mg/dL (7-20); CALCIUM 7.6 mg/dL (8.4-10.2); CARBON DIOXIDE 31 mmol/L (22-30); CHLORIDE 78 mmol/L (98-107); CREATININE RESULT 0.44 mg/dL (0.52-1.25); GLUCOSE 65 mg/dL (75-110); TOTAL PROTEIN 6.2 g/dL (6.3-8.2)
[2017-02-08 11:15] LABS: POTASSIUM 4.4 mmol/L (3.6-5.0)
[2017-02-08] MEDS ORDERED: NORMAL SALINE 1000 ML 1,000 ML IV ONE (11:25)
[2017-02-08 11:32] LABS: BASOPHILS % (MANUAL) 0 % (0-2); EOSINOPHILS % (MANUAL) 1 % (0-6); LYMPHOCYTES % (MANUAL) 10 % (13-45); TOTAL CELLS COUNTED 100
[2017-02-08 11:34] LABS: ANISOCYTOSIS 1+; HYPOCHROMASIA SLIGHT; TARGET CELLS SLIGHT; TOXIC GRANULATION SLIGHT
[2017-02-08] MEDS ORDERED: CALCIUM GLUCONATE 1000 MG/10 ML INJ IV ONE (11:50)
[2017-02-08] MEDS ORDERED: THIAMINE HCL INJ 200 MG/2 ML VIAL IV ONE (11:51)
[2017-02-08 11:54] LABS: ADD ON TESTING BLD IN LAB ACKNOWLEDGE
[2017-02-08] MEDS ORDERED: SODIUM CHLORIDE 3% 500 ML IV ONE (12:02)
[2017-02-08 12:20] LABS: CREATINE KINASE 496 U/L (55-170); MAGNESIUM 1.9 mg/dL (1.6-2.3)
--- NOTE | 2017-02-08 12:30 | RADIOLOGY REPORT (SQ) ---
EXAM DESCRIPTION: CHEST SINGLE VIEW COMPLETED DATE/TIME: 02/08/2017 12:14 pm REASON FOR STUDY: COPD, hyponatremia COMPARISON: 02/07/2017 EXAM PARAMETERS: NUMBER OF VIEWS: One view. TECHNIQUE: Single frontal radiographic view of the chest acquired. RADIATION DOSE: NA LIMITATIONS: None. FINDINGS: LUNGS AND PLEURA: No opacities, masses or pneumothorax. No pleural effusion. I cannot exc lude a component of obstructive lung disease. MEDIASTINUM AND HILAR STRUCTURES: No masses. Contour normal. HEART AND VASCULAR STRUCTURES: The configuration of the heart and mediastinal structures is unchanged . BONES: The previously described chronic bilateral rib deformities appears stable. HARDWARE: None in the chest. OTHER: No other significant finding. IMPRESSION: No significant interval change. No acute findings. Other findings as noted above. TECHNICAL DOCUMENTATION: JOB ID: [id number]
[2017-02-08 12:32] LABS: CREATINE KINASE MB 16.1 ng/mL (<4.55); TROPONIN I 0.014 ng/mL
[2017-02-08] MEDS ORDERED: SODIUM CHLORIDE 3% 200 ML IV ONE (12:32)
[2017-02-08] MEDS ORDERED: MAGNESIUM HYDROXIDE SUSP 30 ML UDCUP PO PRN (12:56)
[2017-02-08] MEDS ORDERED: ALBUTEROL SULFATE HFA (90 MCG/PUFF) 8 GM MDI (1 MDI/ER DISP) IH PRN (13:09)
[2017-02-08 13:13] LABS: APPEARANCE,URINE CLEAR; BILIRUBIN,URINE NEGATIVE (NEGATIVE); GLUCOSE, URINE NEGATIVE (NEGATIVE); KETONES,URINE NEGATIVE (NEGATIVE); LEUKOCYTE ESTERASE,URINE NEGATIVE (NEGATIVE); NITRITE,URINE NEGATIVE (NEGATIVE); PROTEIN,URINE NEGATIVE (NEGATIVE); URINE SPECIFIC GRAVITY 1.006; UROBILINOGEN,URINE NEGATIVE mg/dL (<2.0)
[2017-02-08] MEDS: IPRATROPIUM/ALBUTEROL 0.5-2.5 MG/3 ML AMPUL NEB PRN (13:16)
[2017-02-08] MEDS ORDERED: ALBUTEROL SULFATE HFA (90 MCG/PUFF) 200 PUFF/8.5 GM MDI IH PRN (13:23)
[2017-02-08 14:12] LABS: ANION GAP 5 (5-19); BLOOD UREA NITROGEN 2 mg/dL (7-20); CALCIUM 7.4 mg/dL (8.4-10.2); CARBON DIOXIDE 30 mmol/L (22-30); CHLORIDE 83 mmol/L (98-107); CREATININE RESULT 0.41 mg/dL (0.52-1.25); GLUCOSE 79 mg/dL (75-110); PHOSPHORUS 2.4 mg/dL (2.5-4.5); POTASSIUM 4.3 mmol/L (3.6-5.0)
[2017-02-08 14:24] LABS: CREATINE KINASE MB 12.9 ng/mL (<4.55); TROPONIN I 0.013 ng/mL
[2017-02-08] MEDS: LORAZEPAM INJ 2 MG/1 ML VIAL IV PRN ×2 (15:20→17:47)
[2017-02-08] MEDS ORDERED: DEXTROSE 5%-WATER 1000 ML 1,000 ML IV PRN ×2 (17:24→18:46)
[2017-02-08 17:25] LABS: ANION GAP 6 (5-19); BLOOD UREA NITROGEN 2 mg/dL (7-20); CALCIUM 7.8 mg/dL (8.4-10.2); CARBON DIOXIDE 30 mmol/L (22-30); CHLORIDE 89 mmol/L (98-107); CREATININE RESULT 0.45 mg/dL (0.52-1.25); GLUCOSE 79 mg/dL (75-110); POTASSIUM 4.4 mmol/L (3.6-5.0); SODIUM 124.5 mmol/L (137-145)
[2017-02-08] MEDS: DIAZEPAM 5 MG TABLET PO SCH ×2 (17:45→23:02)
[2017-02-08] MEDS: LANSOPRAZOLE 30 MG TAB.RAP.DR PO SCH (17:45)
[2017-02-08] MEDS: HEPARIN SOD (PORCINE) 5,000 UNIT/ML 1 ML SYRINGE SUBCUT SCH ×2 (17:51→22:59)
--- NOTE | 2017-02-08 18:58 | PDOC H&P ---
History of Present Illness Admission Date/PCP: 02/08/17 12:56 History of Present Illness: LEIF NUÑEZ is a 61 year old male who is well-known to the hospitalist service for repeated admissions for hyponatremia, COPD exacerbation, acute alcohol intoxication and withdrawal. Patient was admitted an eloped within the last 36 hours. He was brought to the emergency department by the [place] [employer] who found him crawling out from under bushes. In the emergency department patient did lose control of his bowels and had a solid stool. Patient was found to be hyponatremic with a sodium of 116 and altered. He is referred to the hospitalist service for this. Past Medical History Cardiac Medical History: Reports: Coronary Artery Disease, Myocardial Infarction - NE occured in 2002. Takes ASA now, used to be on hypertensive medications, Hyperlipidema, Hypertension Pulmonary Medical History: Reports: Asthma, Bronchitis, Chronic Obstructive Pulmonary Disease (COPD), Pneumonia Musculoskeltal Medical History: Reports: Arthritis Psychiatric Medical History: Reports: Depression Past Surgical History Past Surgical History: Reports: Cardiac Catheterization Social History Smoking Status: Current Every Day Smoker Frequency of Alcohol Use: Heavy Hx Recreational Drug Use: No Drugs: None Hx Prescription Drug Abuse: No Family History Family History: Reviewed & Not Pertinent, Arthritis, CAD, COPD Parental Family History Reviewed: No Children Family History Reviewed: No Sibling(s) Family History Reviewed.: No Medication/Allergy Home Medications: Albuterol Sulfate [Ventolin 0.083% Neb 2.5 mg/3 mL Ampul] 3 ml NEB Q8HP PRN Albuterol Sulfate [Ventolin HFA MDI 18 GM] 2 puff IH Q4HP PRN 02/07/17 Alprazolam [Xanax 0.5 mg Tablet] 0.5 mg PO QHS 02/07/17 Budesonide/Formoterol Fumarate [Symbicort HFA 160-4.5 mcg Inhaler 6 gm] 2 puff IH DAILY 02/07/17 Levothyroxine Sodium [Synthroid 0.075 mg Tablet] 0.075 mg PO DAILY 02/07/17 Lisinopril [Prinivil] 20 mg PO DAILY 02/07/17 Oxycodone HCl/Acetaminophen [Percocet 7.5-325 mg Tablet] 1 tab PO Q6HP PRN 02/07 Tiotropium Dexter [Spiriva Respimat] 2 puff IH DAILY 02/07/17 Allergies/Adverse Reactions: No Known Allergies Allergy (Verified 12/25/16 04:45) Review of Systems ROS unobtainable: Due to mental status Physical Exam Vital Signs: Temp Pulse Resp BP Pulse Ox 97.3 F 72 17 100/53 L 98 02/08/17 10:05 02/08/17 13:16 02/08/17 15:31 02/08/17 15:31 02/08/17 15:31 General appearance: PRESENT: disheveled, severe distress, thin. ABSENT: well- nourished Head exam: PRESENT: atraumatic, normocephalic Eye exam: PRESENT: conjunctiva pink, EOMI, PERRLA. ABSENT: scleral icterus Ear exam: PRESENT: normal external ear exam Mouth exam: PRESENT: moist, tongue midline Neck exam: PRESENT: thyromegaly. ABSENT: JVD, lymphadenopathy, tracheal deviation Respiratory exam: PRESENT: prolonged expiratory phas, rhonchi - Bilateral, unlabored. ABSENT: rales, wheezes Cardiovascular exam: PRESENT: RRR, +S1, +S2, systolic murmur. ABSENT: diastolic murmur, rubs Pulses: PRESENT: +1 pedal pulses bilateral Vascular exam: PRESENT: normal capillary refill GI/Abdominal exam: PRESENT: hyperactive bowel sounds, organolmegaly, soft. ABSENT: distended, guarding, mass, White's sign, rebound, rigid, tenderness Rectal exam: PRESENT: deferred Extremities exam: PRESENT: clubbing, +2 edema. ABSENT: calf tenderness Neurological exam: PRESENT: alert, awake, oriented to person, oriented to place , oriented to time, oriented to situation, CN II-XII grossly intact, aphasic - Mildly slurred speech, intoxicated. ABSENT: motor sensory deficit Psychiatric exam: PRESENT: depressed, flat affect. ABSENT: homicidal ideation, suicidal ideation Skin exam: PRESENT: abrasion - Bilateral lower extremities bilateral upper extremities, dry, warm. ABSENT: cyanosis, rash Results Laboratory Results: 02/08/17 02/08/17 13:40 13:40 Sodium 118.0 L* Potassium 4.3 Chloride 83 L Carbon Dioxide 30 Anion Gap 5 BUN 2 L Creatinine 0.41 L Est GFR ( Amer) > 60 Est GFR (Non-Af Amer) > 60 Glucose 79 Calcium 7.4 L Phosphorus 2.4 L Ammonia < 8.7 L 02/08/17 02/08/17 13:40 13:40 Creatine Kinase 373 H CK-MB (CK-2) 12.90 H Troponin I 0.013 Impressions: Chest X-Ray 02/08/17 11:49 IMPRESSION: No significant interval change. No acute findings. Other findings as noted above. Assessment & Plan - Diagnosis (1) Hyponatremia Is this a current diagnosis for this admission?: YesPlan: Patient has severe symptomatic hyponatremia secondary to be associated with volume overload secondary to beer potomania. Will place patient on fluid restriction and check a BMP every 2 hours and give patient hypertonic saline at 35 mL/h. at this time. (2) Acute and chronic respiratory failure with hypoxia Is this a current diagnosis for this admission?: YesPlan: Goal oxygen saturation between 80 and 92. Use oxygen supplementation as needed. Likely suspect beginning combined COPD/CHF exacerbation. (3) Alcohol intoxication Qualifiers: Complication of substance-induced condition: with unspecified complication Qualified Code(s): F10.929 - Alcohol use, unspecified with intoxication, unspecified Is this a current diagnosis for this admission?: YesPlan: Place patient on thiamine, folic acid, scheduled Valium and Ativan. although legally intoxicated, patient is beginning to exhibit signs of withdrawal including hypertensionAnd tachycardia and tremulousness. Patient will be IVC. (4) Rhabdomyolysis Qualifiers: Rhabdomyolysis type: non-traumatic Qualified Code(s): M62.82 - Rhabdomyolysis Is this a current diagnosis for this admission?: YesPlan: Patient's rhabdo is mild and we will follow this. At this time, patient is currently volume overloaded and therefore I am unable to give him additional IV fluid at this time. We will monitor his CPK. (5) Tobacco abuse Is this a current diagnosis for this admission?: Yes (6) Coronary atherosclerosis Qualifiers: Coronary Disease-Associated Artery/Lesion type: unspecified vessel or lesion type [place] vs. transplanted heart: [place] heart Associated angina: angina presence unspecified Qualified Code(s): I25.10 - Atherosclerotic heart disease of [place] coronary artery without angina pectoris Is this a current diagnosis for this admission?: No (7) COPD with acute exacerbation Is this a current diagnosis for this admission?: YesPlan: Nebulized treatments and will place patient on small amount of prednisone. (8) Protein-calorie malnutrition, moderate Is this a current diagnosis for this admission?: Yes - Time Time Spent: 50 to 70 Minutes Medications reviewed and adjusted accordingly: Yes - Inpatient Certification Based on my medical assessment, after consideration of the patient's comorbidities, presenting symptoms, or acuity I expect that the services needed warrant INPATIENT care.: Yes I certify that my determination is in accordance with my understanding of Medicare's requirements for reasonable and necessary INPATIENT services [42 CFR 412.3e].: Yes Medical Necessity: Need For IV Fluids, Risk of Complication if Not Cared For in Hospital Post Hospital Care: D/C [employer] Documentation
[2017-02-08 20:14] LABS: BLOOD UREA NITROGEN 2 mg/dL (7-20); CALCIUM 7.6 mg/dL (8.4-10.2); CHLORIDE 91 mmol/L (98-107); CREATININE RESULT 0.41 mg/dL (0.52-1.25); GLUCOSE 87 mg/dL (75-110); POTASSIUM 4.5 mmol/L (3.6-5.0)
[2017-02-08 20:25] LABS: ANION GAP 7 (5-19); CARBON DIOXIDE 26 mmol/L (22-30); SODIUM 123.6 mmol/L (137-145)
[2017-02-08 20:26] LABS: CREATINE KINASE MB 9.94 ng/mL (<4.55); TROPONIN I 0.019 ng/mL
--- NOTE | 2017-02-08 20:36 | EKG REPORT ---
SEVERITY:- ABNORMAL ECG - SINUS RHYTHM BORDERLINE R WAVE PROGRESSION, ANTERIOR LEADS : Confirmed by: Lázaro De La Garza MD 08-Feb-2017 20:35:22
--- NOTE | 2017-02-08 20:36 | EKG REPORT ---
SEVERITY:- ABNORMAL ECG - SINUS RHYTHM OLD ANTERIOR MT : Confirmed by: Lázaro De La Garza MD 08-Feb-2017 20:36:17
[2017-02-08] MEDS ORDERED: ALPRAZOLAM 0.5 MG TABLET PO SCH (22:00)
[2017-02-08 22:35] LABS: ANION GAP 6 (5-19); CALCIUM 7.6 mg/dL (8.4-10.2); CARBON DIOXIDE 32 mmol/L (22-30); CHLORIDE 89 mmol/L (98-107); CREATININE RESULT 0.44 mg/dL (0.52-1.25); GLUCOSE 95 mg/dL (75-110); SODIUM 126.9 mmol/L (137-145)
[2017-02-08 22:36] LABS: BLOOD UREA NITROGEN < 2 mg/dL (7-20)
[2017-02-09 00:42] LABS: ANION GAP 5 (5-19); BLOOD UREA NITROGEN 3 mg/dL (7-20); CALCIUM 7.6 mg/dL (8.4-10.2); CARBON DIOXIDE 32 mmol/L (22-30); CHLORIDE 88 mmol/L (98-107); CREATININE RESULT 0.42 mg/dL (0.52-1.25); GLUCOSE 99 mg/dL (75-110); POTASSIUM 4.2 mmol/L (3.6-5.0); SODIUM 125.1 mmol/L (137-145)
[2017-02-09 00:53] LABS: CREATINE KINASE MB 6.62 ng/mL (<4.55); TROPONIN I 0.018 ng/mL
[2017-02-09] MEDS: LORAZEPAM INJ 2 MG/1 ML VIAL IV PRN ×4 (02:58→20:42)
[2017-02-09 06:30] LABS: ABSOLUTE BASOPHILS # (AUTO) 0.1 10^3/uL (0.0-0.2); ABSOLUTE LYMPHOCYTES (AUTO) 0.8 10^3/uL (0.5-4.7); ABSOLUTE MONOCYTES (AUTO) 0.9 10^3/uL (0.1-1.4); ABSOLUTE NEUT (AUTO) 4.9 10^3/uL (1.7-8.2); BASOPHILS % (AUTO) 0.8 % (0-2); EOSINOPHILS % (AUTO) 0.1 % (0-6); HEMATOCRIT 29.5 % (37.9-51.0); HEMOGLOBIN 9.9 g/dL (13.5-17.0); HGB HCT DIFFERENCE 0.2; LYMPHOCYTES % (AUTO) 11.3 % (13-45); MEAN CORPUSCULAR HEMOGLOBIN 29.5 pg (27.0-33.4); MEAN CORPUSCULAR HGB CONC 33.4 g/dL (32.0-36.0); MEAN CORPUSCULAR VOLUME 88 fl (80-97); MONOCYTES % (AUTO) 13.9 % (3-13); RED BLOOD COUNT 3.34 10^6/uL (4.35-5.55); RED CELL DISTRIBUTION WIDTH 18.4 % (11.5-14.0); SEGMENTED NEUTROPHILS % (AUTO) 73.9 % (42-78); WHITE BLOOD COUNT 6.7 10^3/uL (4.0-10.5)
[2017-02-09] MEDS: DIAZEPAM 5 MG TABLET PO SCH ×4 (06:41→23:59)
[2017-02-09] MEDS: HEPARIN SOD (PORCINE) 5,000 UNIT/ML 1 ML SYRINGE SUBCUT SCH ×3 (06:41→21:34)
[2017-02-09] MEDS: LANSOPRAZOLE 30 MG TAB.RAP.DR PO SCH ×2 (06:41→16:41)
[2017-02-09 06:51] LABS: MAGNESIUM 2.2 mg/dL (1.6-2.3); PHOSPHORUS 2.8 mg/dL (2.5-4.5)
[2017-02-09] MEDS ORDERED: DEXTROSE 5%-WATER 1000 ML 1,000 ML IV PRN ×2 (07:02→14:48)
[2017-02-09] MEDS ORDERED: DESMOPRESSIN ACETATE INJ 4 MCG/1 ML AMPULE IV ONE ×2 (07:06→13:00)
[2017-02-09 07:13] LABS: ANION GAP 6 (5-19); BLOOD UREA NITROGEN 2 mg/dL (7-20); CALCIUM 7.5 mg/dL (8.4-10.2); CARBON DIOXIDE 34 mmol/L (22-30); CHLORIDE 86 mmol/L (98-107); CREATININE RESULT 0.39 mg/dL (0.52-1.25); GLUCOSE 97 mg/dL (75-110); POTASSIUM 4.1 mmol/L (3.6-5.0); SODIUM 125.6 mmol/L (137-145)
[2017-02-09 09:14] LABS: ANION GAP 6 (5-19); BLOOD UREA NITROGEN 2 mg/dL (7-20); CALCIUM 7.5 mg/dL (8.4-10.2); CARBON DIOXIDE 35 mmol/L (22-30); CHLORIDE 85 mmol/L (98-107); CREATININE RESULT 0.42 mg/dL (0.52-1.25); GLUCOSE 154 mg/dL (75-110); POTASSIUM 4.1 mmol/L (3.6-5.0); SODIUM 125.5 mmol/L (137-145)
[2017-02-09] MEDS: PHOSPHORUS #1 250 MG TABLET PO SCH ×4 (09:17→21:37)
[2017-02-09] MEDS: LACTULOSE SYRUP 20 GM/30 ML UDCUP PO SCH ×2 (09:17→21:37)
[2017-02-09] MEDS: DOCUSATE SODIUM 100 MG CAPSULE PO SCH (09:18)
[2017-02-09] MEDS: LEVOTHYROXINE SODIUM 0.075 MG TABLET PO SCH (09:18)
[2017-02-09] MEDS: IPRATROPIUM/ALBUTEROL 0.5-2.5 MG/3 ML AMPUL NEB PRN (09:34)
[2017-02-09] MEDS ORDERED: (PENDING PHARMACY ID) (Tiotropium Bromide [Spiriva Respimat] 2 PUFF) IH SCH (10:00)
[2017-02-09] MEDS: TIOTROPIUM BROMIDE DPI 5 CAP/KIT (18 MCG/CAP) IH SCH (10:40)
[2017-02-09] MEDS: BUDESONIDE/FORMOTEROL 160-4.5 MCG 60 PUFF/6 GM MDI IH SCH (10:40)
[2017-02-09 11:51] LABS: ANION GAP 7 (5-19); BLOOD UREA NITROGEN 3 mg/dL (7-20); CALCIUM 7.8 mg/dL (8.4-10.2); CARBON DIOXIDE 34 mmol/L (22-30); CHLORIDE 85 mmol/L (98-107); CREATININE RESULT 0.42 mg/dL (0.52-1.25); GLUCOSE 76 mg/dL (75-110); POTASSIUM 4.2 mmol/L (3.6-5.0); SODIUM 125.9 mmol/L (137-145)
[2017-02-09 14:07] LABS: BLOOD UREA NITROGEN 4 mg/dL (7-20); CALCIUM 7.4 mg/dL (8.4-10.2); CARBON DIOXIDE 32 mmol/L (22-30); CHLORIDE 86 mmol/L (98-107); CREATININE RESULT 0.39 mg/dL (0.52-1.25); GLUCOSE 138 mg/dL (75-110); POTASSIUM 4.3 mmol/L (3.6-5.0); SODIUM 121.9 mmol/L (137-145)
[2017-02-09 14:11] LABS: ANION GAP 4 (5-19)
--- NOTE | 2017-02-09 16:23 | PDOC PROGRESS REPORT ---
Subjective Progress Note for:: 02/09/17 Subjective:: Patient seen earlier today on morning rounds. Patient has just received Ativan for his call withdrawal and is quite lethargic but does arouse and answer questions appropriately. He denies any pain at this time. Physical Exam Vital Signs: Temp Pulse Resp BP Pulse Ox 98.4 F 86 17 138/71 H 92 02/09/17 12:10 02/09/17 14:00 02/09/17 13:00 02/09/17 13:00 02/09/17 13:00 Intake & Output 02/08/17 02/09/17 02/10/17 06:59 06:59 06:59 Intake Total 1175 342 Output Total 0 25 Balance 1175 317 Weight 60.6 kg Exam: General: Lethargic, but oriented, mild respiratory distress HEENT:Atraumatic, normocephalic, pupils equal round and reactive to light, oropharynx moist, pink, no scleral icterus, no conjunctival injection Neck: + JVD clavicle, trachea midline Chest: Rhonchi bilaterally CV: Regular rate and rhythm, normal S1 and S2, no murmur, rub, gallop Abdomen: soft, nontender to palpation, nondistended, active bowel sounds; no rebound, rigidity, or guarding Extremities: No cyanosis, clubbing; 3+edema Neuro: Cranial nerves II through XII are grossly intact without focal deficits Psych: Normal mood and affect Results Laboratory Results: 02/09/17 06:17 02/08/17 02/08/17 02/08/17 13:40 16:55 19:25 WBC RBC Hgb Hct MCV MCH MCHC RDW Plt Count Seg Neutrophils % Lymphocytes % Monocytes % Eosinophils % Basophils % Absolute Neutrophils Absolute Lymphocytes Absolute Monocytes Absolute Eosinophils Absolute Basophils Sodium 118.0 L* 124.5 L 123.6 L Potassium 4.3 4.4 4.5 Chloride 83 L 89 L 91 L Carbon Dioxide 30 30 26 Anion Gap 5 6 7 BUN 2 L 2 L 2 L Creatinine 0.41 L 0.45 L 0.41 L Est GFR ( Amer) > 60 > 60 > 60 Est GFR (Non-Af Amer) > 60 > 60 > 60 Glucose 79 79 87 Calcium 7.4 L 7.8 L 7.6 L Phosphorus 2.4 L Magnesium Ammonia 02/08/17 02/08/17 02/09/17 21:10 22:13 00:18 WBC RBC Hgb Hct MCV MCH MCHC RDW Plt Count Seg Neutrophils % Lymphocytes % Monocytes % Eosinophils % Basophils % Absolute Neutrophils Absolute Lymphocytes Absolute Monocytes Absolute Eosinophils Absolute Basophils Sodium Cancelled 126.9 L 125.1 L Potassium Cancelled 4.0 4.2 Chloride Cancelled 89 L 88 L Carbon Dioxide Cancelled 32 H 32 H Anion Gap Cancelled 6 5 BUN Cancelled < 2 L 3 L Creatinine Cancelled 0.44 L 0.42 L Est GFR ( Amer) Cancelled > 60 > 60 Est GFR (Non-Af Amer) Cancelled > 60 > 60 Glucose Cancelled 95 99 Calcium Cancelled 7.6 L 7.6 L Phosphorus Magnesium Ammonia 02/09/17 02/09/17 02/09/17 06:17 06:17 06:17 WBC 6.7 RBC 3.34 L Hgb 9.9 L Hct 29.5 L MCV 88 MCH 29.5 MCHC 33.4 RDW 18.4 H Plt Count 213 Seg Neutrophils % 73.9 Lymphocytes % 11.3 L Monocytes % 13.9 H Eosinophils % 0.1 Basophils % 0.8 Absolute Neutrophils 4.9 Absolute Lymphocytes 0.8 Absolute Monocytes 0.9 Absolute Eosinophils 0.0 Absolute Basophils 0.1 Sodium Potassium Chloride Carbon Dioxide Anion Gap BUN Creatinine Est GFR ( Amer) Est GFR (Non-Af Amer) Glucose Calcium Phosphorus 2.8 Magnesium 2.2 Ammonia 16.8 02/09/17 02/09/17 02/09/17 06:17 08:25 11:23 WBC RBC Hgb Hct MCV MCH MCHC RDW Plt Count Seg Neutrophils % Lymphocytes % Monocytes % Eosinophils % Basophils % Absolute Neutrophils Absolute Lymphocytes Absolute Monocytes Absolute Eosinophils Absolute Basophils Sodium 125.6 L 125.5 L 125.9 L Potassium 4.1 4.1 4.2 Chloride 86 L 85 L 85 L Carbon Dioxide 34 H 35 H 34 H Anion Gap 6 6 7 BUN 2 L 2 L 3 L Creatinine 0.39 L 0.42 L 0.42 L Est GFR ( Amer) > 60 > 60 > 60 Est GFR (Non-Af Amer) > 60 > 60 > 60 Glucose 97 154 H 76 Calcium 7.5 L 7.5 L 7.8 L Phosphorus Magnesium Ammonia 02/09/17 13:35 WBC RBC Hgb Hct MCV MCH MCHC RDW Plt Count Seg Neutrophils % Lymphocytes % Monocytes % Eosinophils % Basophils % Absolute Neutrophils Absolute Lymphocytes Absolute Monocytes Absolute Eosinophils Absolute Basophils Sodium 121.9 L Potassium 4.3 Chloride 86 L Carbon Dioxide 32 H Anion Gap 4 L BUN 4 L Creatinine 0.39 L Est GFR ( Amer) > 60 Est GFR (Non-Af Amer) > 60 Glucose 138 H Calcium 7.4 L Phosphorus Magnesium Ammonia 02/08/17 02/08/17 02/08/17 13:40 13:40 19:25 Creatine Kinase 373 H 287 H CK-MB (CK-2) 12.90 H Troponin I 0.013 02/08/17 02/09/17 02/09/17 19:25 00:18 00:18 Creatine Kinase 222 H CK-MB (CK-2) 9.94 H 6.62 H Troponin I 0.019 0.018 Impressions: Chest X-Ray 02/08/17 11:49 IMPRESSION: No significant interval change. No acute findings. Other findings as noted above. Assessment & Plan - Diagnosis (1) COPD with acute exacerbation Is this a current diagnosis for this admission?: YesPlan: Nebulized treatments and prednisone. (2) Hyponatremia Is this a current diagnosis for this admission?: YesPlan: Patient has severe symptomatic hyponatremia secondary to be associated with volume overload secondary to beer potomania. Will place patient on fluid restriction and continue a BMP every 2 hours. Patient had quite a rapid rise in his sodium which has been treated with D5 and DDAVP with appropriate decrease. Continue to monitor closely. (3) Acute and chronic respiratory failure with hypoxia Is this a current diagnosis for this admission?: YesPlan: Goal oxygen saturation between 80 and 92. Use oxygen supplementation as needed. Likely suspect beginning combined COPD/CHF exacerbation. (4) Alcohol intoxication Qualifiers: Complication of substance-induced condition: with unspecified complication Qualified Code(s): F10.929 - Alcohol use, unspecified with intoxication, unspecified Is this a current diagnosis for this admission?: YesPlan: Place patient on thiamine, folic acid, scheduled Valium and prn Ativan. Patient is no longer legally intoxicated. Patient is having active withdrawal and will continue IVC for his protection given his hyponatremia. (5) Rhabdomyolysis Qualifiers: Rhabdomyolysis type: non-traumatic Qualified Code(s): M62.82 - Rhabdomyolysis Is this a current diagnosis for this admission?: YesPlan: Patient's rhabdo is mild and we will follow this. (6) Tobacco abuse Is this a current diagnosis for this admission?: Yes (7) Coronary atherosclerosis Qualifiers: Coronary Disease-Associated Artery/Lesion type: unspecified vessel or lesion type [place] vs. transplanted heart: [place] heart Associated angina: angina presence unspecified Qualified Code(s): I25.10 - Atherosclerotic heart disease of [place] coronary artery without angina pectoris Is this a current diagnosis for this admission?: No (8) Protein-calorie malnutrition, moderate Is this a current diagnosis for this admission?: Yes - Time Time Spent with patient: 35 or more minutes Medications reviewed and adjusted accordingly: Yes
[2017-02-09 16:25] LABS: BLOOD UREA NITROGEN 5 mg/dL (7-20); CALCIUM 7.2 mg/dL (8.4-10.2); CARBON DIOXIDE 36 mmol/L (22-30); CHLORIDE 84 mmol/L (98-107); CREATININE RESULT 0.42 mg/dL (0.52-1.25); GLUCOSE 85 mg/dL (75-110); POTASSIUM 4.2 mmol/L (3.6-5.0)
[2017-02-09 16:37] LABS: SODIUM 121.6 mmol/L (137-145)
[2017-02-09 16:38] LABS: ANION GAP 2 (5-19)
[2017-02-09 17:46] LABS: BLOOD UREA NITROGEN 5 mg/dL (7-20); CALCIUM 7.3 mg/dL (8.4-10.2); CREATININE RESULT 0.42 mg/dL (0.52-1.25); GLUCOSE 94 mg/dL (75-110); POTASSIUM 4.2 mmol/L (3.6-5.0)
[2017-02-09 18:01] LABS: CARBON DIOXIDE 34 mmol/L (22-30); CHLORIDE 85 mmol/L (98-107)
[2017-02-09 18:04] LABS: ANION GAP 2 (5-19)
--- NOTE | 2017-02-09 18:05 | PSYCHOLOGICAL NOTE ---
Psych Note - Psych Note Psych Note: Patient is a 61 year old male who is well known in the ED for alcohol abuse who presents with [employer] for intoxication. Patient was found by [employer] crawling out of the bushes and has since defecated on himself, he is currently asleep and not easily aroused during exam. Patient was seen at the ED twice yesterday, he was first admitted for hyponatremia, he left AMA and and then came back to ED intoxicated. Patient spoke with patient patient refuses assistance for substance abuse. He denies wanting to kill himself. Patient is a chronic alcoholic. Patient was put under IVC per Dr. Matute "chronic alcoholic who eloped from hospital and was returned by [employer] after being found outdoors covered in feces. He was found to have severe sodium which caused him to be confused. Failure to treat may result in ."
[2017-02-09 18:06] LABS: SODIUM 120.8 mmol/L (137-145)
[2017-02-09] MEDS ORDERED: FUROSEMIDE INJ/PF 20 MG/2 ML SDV IV ONE (18:09)
[2017-02-09 19:52] LABS: BLOOD UREA NITROGEN 5 mg/dL (7-20); CALCIUM 7.5 mg/dL (8.4-10.2); CREATININE RESULT 0.48 mg/dL (0.52-1.25); GLUCOSE 108 mg/dL (75-110); POTASSIUM 3.7 mmol/L (3.6-5.0)
[2017-02-09 20:02] LABS: CARBON DIOXIDE 36 mmol/L (22-30); CHLORIDE 81 mmol/L (98-107); SODIUM 121.2 mmol/L (137-145)
[2017-02-09 20:03] LABS: ANION GAP 4 (5-19)
[2017-02-09 21:39] LABS: BLOOD UREA NITROGEN 5 mg/dL (7-20); CALCIUM 7.5 mg/dL (8.4-10.2); CHLORIDE 82 mmol/L (98-107); CREATININE RESULT 0.45 mg/dL (0.52-1.25); GLUCOSE 91 mg/dL (75-110); POTASSIUM 3.8 mmol/L (3.6-5.0)
[2017-02-09 21:47] LABS: CARBON DIOXIDE 36 mmol/L (22-30)
[2017-02-09 22:00] LABS: ANION GAP 3 (5-19)
[2017-02-09 22:01] LABS: SODIUM 120.9 mmol/L (137-145)
[2017-02-09 23:58] LABS: BLOOD UREA NITROGEN 5 mg/dL (7-20); CALCIUM 7.6 mg/dL (8.4-10.2); CREATININE RESULT 0.47 mg/dL (0.52-1.25); GLUCOSE 91 mg/dL (75-110); SODIUM 122.7 mmol/L (137-145)
[2017-02-10 00:08] LABS: CARBON DIOXIDE 36 mmol/L (22-30); CHLORIDE 83 mmol/L (98-107); POTASSIUM 3.9 mmol/L (3.6-5.0)
[2017-02-10 00:13] LABS: ANION GAP 4 (5-19)
[2017-02-10 01:54] LABS: BLOOD UREA NITROGEN 5 mg/dL (7-20); CALCIUM 7.6 mg/dL (8.4-10.2); CARBON DIOXIDE 36 mmol/L (22-30); CHLORIDE 84 mmol/L (98-107); CREATININE RESULT 0.49 mg/dL (0.52-1.25); GLUCOSE 96 mg/dL (75-110); POTASSIUM 3.8 mmol/L (3.6-5.0)
[2017-02-10 02:09] LABS: SODIUM 122.5 mmol/L (137-145)
[2017-02-10 02:14] LABS: ANION GAP 3 (5-19)
[2017-02-10 04:20] LABS: BLOOD UREA NITROGEN 5 mg/dL (7-20); CALCIUM 7.7 mg/dL (8.4-10.2); CARBON DIOXIDE 36 mmol/L (22-30); CHLORIDE 84 mmol/L (98-107); CREATININE RESULT 0.49 mg/dL (0.52-1.25); GLUCOSE 88 mg/dL (75-110)
[2017-02-10 04:32] LABS: ANION GAP 1 (5-19); SODIUM 121.1 mmol/L (137-145)
[2017-02-10] MEDS: DIAZEPAM 5 MG TABLET PO SCH ×4 (05:39→23:51)
[2017-02-10] MEDS: LANSOPRAZOLE 30 MG TAB.RAP.DR PO SCH ×2 (05:39→16:24)
[2017-02-10] MEDS: HEPARIN SOD (PORCINE) 5,000 UNIT/ML 1 ML SYRINGE SUBCUT SCH ×3 (05:39→22:46)
[2017-02-10 05:56] LABS: ABSOLUTE BASOPHILS # (AUTO) 0.1 10^3/uL (0.0-0.2); ABSOLUTE LYMPHOCYTES (AUTO) 0.8 10^3/uL (0.5-4.7); ABSOLUTE MONOCYTES (AUTO) 0.8 10^3/uL (0.1-1.4); BASOPHILS % (AUTO) 1.4 % (0-2); HEMATOCRIT 29.3 % (37.9-51.0); HEMOGLOBIN 9.7 g/dL (13.5-17.0); HGB HCT DIFFERENCE -0.2; LYMPHOCYTES % (AUTO) 17.1 % (13-45); MEAN CORPUSCULAR HEMOGLOBIN 29.6 pg (27.0-33.4); MEAN CORPUSCULAR HGB CONC 33.2 g/dL (32.0-36.0); MEAN CORPUSCULAR VOLUME 89 fl (80-97); MONOCYTES % (AUTO) 16.8 % (3-13); RED BLOOD COUNT 3.28 10^6/uL (4.35-5.55); RED CELL DISTRIBUTION WIDTH 18.9 % (11.5-14.0); SEGMENTED NEUTROPHILS % (AUTO) 63.7 % (42-78); WHITE BLOOD COUNT 4.7 10^3/uL (4.0-10.5)
[2017-02-10] MEDS: IPRATROPIUM/ALBUTEROL 0.5-2.5 MG/3 ML AMPUL NEB PRN (06:10)
[2017-02-10 06:13] LABS: BLOOD UREA NITROGEN 5 mg/dL (7-20); CALCIUM 7.7 mg/dL (8.4-10.2); CREATININE RESULT 0.44 mg/dL (0.52-1.25); GLUCOSE 100 mg/dL (75-110)
[2017-02-10 06:22] LABS: CARBON DIOXIDE 36 mmol/L (22-30); CHLORIDE 84 mmol/L (98-107); POTASSIUM 3.9 mmol/L (3.6-5.0); SODIUM 121.5 mmol/L (137-145)
[2017-02-10 06:23] LABS: ANION GAP 2 (5-19)
[2017-02-10] MEDS: LORAZEPAM INJ 2 MG/1 ML VIAL IV PRN ×4 (07:26→23:51)
[2017-02-10] MEDS: PHOSPHORUS #1 250 MG TABLET PO SCH ×4 (07:27→22:46)
[2017-02-10] MEDS ORDERED: FUROSEMIDE INJ/PF 20 MG/2 ML SDV ONE (08:33)
[2017-02-10] MEDS: LEVOTHYROXINE SODIUM 0.075 MG TABLET PO SCH (08:36)
[2017-02-10] MEDS: LACTULOSE SYRUP 20 GM/30 ML UDCUP PO SCH (08:36)
[2017-02-10] MEDS: BUDESONIDE/FORMOTEROL 160-4.5 MCG 60 PUFF/6 GM MDI IH SCH (08:36)
[2017-02-10] MEDS: TIOTROPIUM BROMIDE DPI 5 CAP/KIT (18 MCG/CAP) IH SCH (08:37)
[2017-02-10] MEDS: DOCUSATE SODIUM 100 MG CAPSULE PO SCH (08:46)
[2017-02-10 09:51] LABS: ANION GAP 5 (5-19); BLOOD UREA NITROGEN 6 mg/dL (7-20); CALCIUM 8.2 mg/dL (8.4-10.2); CARBON DIOXIDE 34 mmol/L (22-30); CHLORIDE 86 mmol/L (98-107); CREATININE RESULT 0.54 mg/dL (0.52-1.25); GLUCOSE 107 mg/dL (75-110); POTASSIUM 4.8 mmol/L (3.6-5.0); SODIUM 125.4 mmol/L (137-145)
[2017-02-10] MEDS ORDERED: FUROSEMIDE INJ/PF 20 MG/2 ML SDV IV ONE (10:15)
[2017-02-10 12:04] LABS: ANION GAP 7 (5-19); BLOOD UREA NITROGEN 6 mg/dL (7-20); CALCIUM 8.1 mg/dL (8.4-10.2); CARBON DIOXIDE 32 mmol/L (22-30); CHLORIDE 87 mmol/L (98-107); CREATININE RESULT 0.59 mg/dL (0.52-1.25); GLUCOSE 96 mg/dL (75-110); POTASSIUM 4.8 mmol/L (3.6-5.0); SODIUM 125.7 mmol/L (137-145)
[2017-02-10] MEDS: HALOPERIDOL LACTATE INJ 5 MG/1 ML VIAL IV PRN ×3 (12:52→23:51)
[2017-02-10] MEDS: IPRATROPIUM/ALBUTEROL 0.5-2.5 MG/3 ML AMPUL NEB SCH ×2 (13:13→19:46)
[2017-02-10 13:26] LABS: ANION GAP 9 (5-19); BLOOD UREA NITROGEN 6 mg/dL (7-20); CALCIUM 8.3 mg/dL (8.4-10.2); CARBON DIOXIDE 34 mmol/L (22-30); CHLORIDE 84 mmol/L (98-107); GLUCOSE 93 mg/dL (75-110); POTASSIUM 3.9 mmol/L (3.6-5.0); SODIUM 127.3 mmol/L (137-145)
--- NOTE | 2017-02-10 16:45 | PDOC PROGRESS REPORT ---
Subjective Progress Note for:: 02/10/17 Subjective:: Patient seen earlier today on morning rounds. Patient reports she is breathing better and feels better and wants to go home. Patient however is not oriented and currently withdrawing from alcohol. Unable to obtain review of systems secondary to mental status. Physical Exam Vital Signs: Temp Pulse Resp BP Pulse Ox 97.8 F 79 18 136/66 H 95 02/10/17 03:47 02/10/17 06:10 02/10/17 06:10 02/10/17 05:00 02/10/17 05:00 Intake & Output 02/09/17 02/10/17 02/11/17 06:59 06:59 06:59 Intake Total 1175 2142 Output Total 800 75 Balance 375 2067 Weight 60.6 kg 61 kg Exam: General: Awake, alert, oriented to self and place; no acute respiratory distress HEENT:Atraumatic, normocephalic, pupils equal round and reactive to light, oropharynx moist, pink, no scleral icterus, no conjunctival injection Neck: + JVD clavicle, trachea midline Chest: Crackles bilaterally CV: Regular rate and rhythm, normal S1 and S2, no murmur, rub, gallop Abdomen: soft, nontender to palpation, nondistended, active bowel sounds; no rebound, rigidity, or guarding Extremities: No cyanosis, clubbing; 1+edema Neuro: Cranial nerves II through XII are grossly intact without focal deficits Psych: Agitated Results Laboratory Results: 02/10/17 05:36 02/10/17 05:36 02/08/17 02/09/17 02/09/17 13:40 08:25 11:23 WBC RBC Hgb Hct MCV MCH MCHC RDW Plt Count Seg Neutrophils % Lymphocytes % Monocytes % Eosinophils % Basophils % Absolute Neutrophils Absolute Lymphocytes Absolute Monocytes Absolute Eosinophils Absolute Basophils Sodium 118.0 L* 125.5 L 125.9 L Potassium 4.3 4.1 4.2 Chloride 83 L 85 L 85 L Carbon Dioxide 30 35 H 34 H Anion Gap 5 6 7 BUN 2 L 2 L 3 L Creatinine 0.41 L 0.42 L 0.42 L Est GFR ( Amer) > 60 > 60 > 60 Est GFR (Non-Af Amer) > 60 > 60 > 60 Glucose 79 154 H 76 Calcium 7.4 L 7.5 L 7.8 L Phosphorus 2.4 L 05/27/17 05/27/17 05/27/17 13:35 15:29 17:22 WBC RBC Hgb Hct MCV MCH MCHC RDW Plt Count Seg Neutrophils % Lymphocytes % Monocytes % Eosinophils % Basophils % Absolute Neutrophils Absolute Lymphocytes Absolute Monocytes Absolute Eosinophils Absolute Basophils Sodium 121.9 L 121.6 L 120.8 L* Potassium 4.3 4.2 4.2 Chloride 86 L 84 L 85 L Carbon Dioxide 32 H 36 H 34 H Anion Gap 4 L 2 L 2 L BUN 4 L 5 L 5 L Creatinine 0.39 L 0.42 L 0.42 L Est GFR ( Amer) > 60 > 60 > 60 Est GFR (Non-Af Amer) > 60 > 60 > 60 Glucose 138 H 85 94 Calcium 7.4 L 7.2 L 7.3 L Phosphorus 02/09/17 02/09/17 02/09/17 19:34 21:22 23:21 WBC RBC Hgb Hct MCV MCH MCHC RDW Plt Count Seg Neutrophils % Lymphocytes % Monocytes % Eosinophils % Basophils % Absolute Neutrophils Absolute Lymphocytes Absolute Monocytes Absolute Eosinophils Absolute Basophils Sodium 121.2 L 120.9 L* 122.7 L Potassium 3.7 3.8 3.9 Chloride 81 L 82 L 83 L Carbon Dioxide 36 H 36 H 36 H Anion Gap 4 L 3 L 4 L BUN 5 L 5 L 5 L Creatinine 0.48 L 0.45 L 0.47 L Est GFR ( Amer) > 60 > 60 > 60 Est GFR (Non-Af Amer) > 60 > 60 > 60 Glucose 108 91 91 Calcium 7.5 L 7.5 L 7.6 L Phosphorus 02/10/17 02/10/17 02/10/17 01:28 03:35 05:36 WBC 4.7 RBC 3.28 L Hgb 9.7 L Hct 29.3 L MCV 89 MCH 29.6 MCHC 33.2 RDW 18.9 H Plt Count 212 Seg Neutrophils % 63.7 Lymphocytes % 17.1 Monocytes % 16.8 H Eosinophils % 1.0 Basophils % 1.4 Absolute Neutrophils 3.0 Absolute Lymphocytes 0.8 Absolute Monocytes 0.8 Absolute Eosinophils 0.0 Absolute Basophils 0.1 Sodium 122.5 L 121.1 L Potassium 3.8 4.0 Chloride 84 L 84 L Carbon Dioxide 36 H 36 H Anion Gap 3 L 1 L BUN 5 L 5 L Creatinine 0.49 L 0.49 L Est GFR ( Amer) > 60 > 60 Est GFR (Non-Af Amer) > 60 > 60 Glucose 96 88 Calcium 7.6 L 7.7 L Phosphorus 02/10/17 05:36 WBC RBC Hgb Hct MCV MCH MCHC RDW Plt Count Seg Neutrophils % Lymphocytes % Monocytes % Eosinophils % Basophils % Absolute Neutrophils Absolute Lymphocytes Absolute Monocytes Absolute Eosinophils Absolute Basophils Sodium 121.5 L Potassium 3.9 Chloride 84 L Carbon Dioxide 36 H Anion Gap 2 L BUN 5 L Creatinine 0.44 L Est GFR ( Amer) > 60 Est GFR (Non-Af Amer) > 60 Glucose 100 Calcium 7.7 L Phosphorus 02/08/17 02/08/17 02/08/17 13:40 13:40 19:25 Creatine Kinase 373 H 287 H CK-MB (CK-2) 12.90 H Troponin I 0.013 02/08/17 02/09/17 02/09/17 19:25 00:18 00:18 Creatine Kinase 222 H CK-MB (CK-2) 9.94 H 6.62 H Troponin I 0.019 0.018 Impressions: Chest X-Ray 02/08/17 11:49 IMPRESSION: No significant interval change. No acute findings. Other findings as noted above. Assessment & Plan - Diagnosis (1) COPD with acute exacerbation Is this a current diagnosis for this admission?: YesPlan: Nebulized treatments and prednisone. (2) Hyponatremia Is this a current diagnosis for this admission?: YesPlan: Patient has severe symptomatic hyponatremia secondary to be associated with volume overload secondary to beer potomania. Will place patient on fluid restriction. Administer IV Lasix and monitor daily BMP. Patient goal sodium in the next 24 hours is 130. (3) Acute and chronic respiratory failure with hypoxia Is this a current diagnosis for this admission?: YesPlan: Goal oxygen saturation between 80 and 92. Use oxygen supplementation as needed. Likely suspect beginning combined COPD/CHF exacerbation. (4) Alcohol intoxication Qualifiers: Complication of substance-induced condition: with unspecified complication Qualified Code(s): F10.929 - Alcohol use, unspecified with intoxication, unspecified Is this a current diagnosis for this admission?: YesPlan: Place patient on thiamine, folic acid, scheduled Valium and prn Ativan. Patient is no longer legally intoxicated. Patient is having active withdrawal and will continue IVC for his protection given his hyponatremia. (5) Rhabdomyolysis Qualifiers: Rhabdomyolysis type: non-traumatic Qualified Code(s): M62.82 - Rhabdomyolysis Is this a current diagnosis for this admission?: YesPlan: Patient's rhabdo is mild and we will follow this. (6) Tobacco abuse Is this a current diagnosis for this admission?: YesPlan: Nicotine patch as needed (7) Coronary atherosclerosis Qualifiers: Coronary Disease-Associated Artery/Lesion type: unspecified vessel or lesion type [place] vs. transplanted heart: [place] heart Associated angina: angina presence unspecified Qualified Code(s): I25.10 - Atherosclerotic heart disease of [place] coronary artery without angina pectoris Is this a current diagnosis for this admission?: No (8) Protein-calorie malnutrition, moderate Is this a current diagnosis for this admission?: Yes (9) Hypothyroidism Is this a current diagnosis for this admission?: YesPlan: Continue Synthroid (10) Alcohol withdrawal Qualifiers: Complication of substance-induced condition: with delirium Qualified Code(s): F10.231 - Alcohol dependence with withdrawal delirium Is this a current diagnosis for this admission?: YesPlan: Continue IVC and scheduled Valium and Ativan as needed. Thiamine and folic acid. - Time Time Spent with patient: 25-34 minutes Medications reviewed and adjusted accordingly: Yes
[2017-02-10] MEDS: PREDNISONE 20 MG TABLET PO SCH (17:12)
[2017-02-10] MEDS ORDERED: NICOTINE 21 MG/24 HR PATCH.TD24 TD ONE (17:15)
[2017-02-10] MEDS: FUROSEMIDE INJ/PF 20 MG/2 ML SDV IV SCH (22:46)
[2017-02-11 06:23] LABS: ABSOLUTE BASOPHILS # (AUTO) 0.1 10^3/uL (0.0-0.2); ABSOLUTE LYMPHOCYTES (AUTO) 0.9 10^3/uL (0.5-4.7); ABSOLUTE MONOCYTES (AUTO) 0.7 10^3/uL (0.1-1.4); ABSOLUTE NEUT (AUTO) 3.1 10^3/uL (1.7-8.2); BASOPHILS % (AUTO) 1.2 % (0-2); EOSINOPHILS % (AUTO) 0.1 % (0-6); HEMATOCRIT 31.8 % (37.9-51.0); HEMOGLOBIN 10.6 g/dL (13.5-17.0); LYMPHOCYTES % (AUTO) 19.7 % (13-45); MEAN CORPUSCULAR HEMOGLOBIN 29.9 pg (27.0-33.4); MEAN CORPUSCULAR HGB CONC 33.3 g/dL (32.0-36.0); MEAN CORPUSCULAR VOLUME 90 fl (80-97); MONOCYTES % (AUTO) 14.8 % (3-13); RED BLOOD COUNT 3.54 10^6/uL (4.35-5.55); RED CELL DISTRIBUTION WIDTH 19.1 % (11.5-14.0); SEGMENTED NEUTROPHILS % (AUTO) 64.2 % (42-78); WHITE BLOOD COUNT 4.8 10^3/uL (4.0-10.5)
[2017-02-11 06:37] LABS: ANION GAP 5 (5-19); BLOOD UREA NITROGEN 8 mg/dL (7-20); CALCIUM 8.8 mg/dL (8.4-10.2); CARBON DIOXIDE 35 mmol/L (22-30); CHLORIDE 88 mmol/L (98-107); CREATININE RESULT 0.56 mg/dL (0.52-1.25); GLUCOSE 116 mg/dL (75-110); POTASSIUM 4.3 mmol/L (3.6-5.0); SODIUM 128.2 mmol/L (137-145)
[2017-02-11] MEDS: HEPARIN SOD (PORCINE) 5,000 UNIT/ML 1 ML SYRINGE SUBCUT SCH ×3 (06:57→21:24)
[2017-02-11] MEDS: DIAZEPAM 5 MG TABLET PO SCH ×4 (06:57→23:09)
[2017-02-11] MEDS: LANSOPRAZOLE 30 MG TAB.RAP.DR PO SCH ×2 (06:57→16:42)
[2017-02-11] MEDS: IPRATROPIUM/ALBUTEROL 0.5-2.5 MG/3 ML AMPUL NEB SCH ×3 (08:38→20:08)
[2017-02-11] MEDS: PHOSPHORUS #1 250 MG TABLET PO SCH ×2 (10:38→10:48)
[2017-02-11] MEDS: FUROSEMIDE INJ/PF 20 MG/2 ML SDV IV SCH ×2 (10:48→21:24)
[2017-02-11] MEDS: PREDNISONE 20 MG TABLET PO SCH ×2 (10:48→17:50)
[2017-02-11] MEDS: NICOTINE 21 MG/24 HR PATCH.TD24 TD SCH (10:48)
[2017-02-11] MEDS: LEVOTHYROXINE SODIUM 0.075 MG TABLET PO SCH (10:48)
[2017-02-11] MEDS: DOCUSATE SODIUM 100 MG CAPSULE PO SCH (10:48)
[2017-02-11] MEDS: TIOTROPIUM BROMIDE DPI 5 CAP/KIT (18 MCG/CAP) IH SCH (10:56)
[2017-02-11] MEDS: BUDESONIDE/FORMOTEROL 160-4.5 MCG 60 PUFF/6 GM MDI IH SCH (10:56)
--- NOTE | 2017-02-11 13:08 | PDOC PROGRESS REPORT ---
Subjective Progress Note for:: 02/11/17 Subjective:: Patient is perseverating about wanting to go home. Patient tells me that he lives alone and takes care of himself, but nursing reports that he lives with his daughter and son. I did speak to his son on the phone and he is in agreement that patient should stay for competency evaluation. Patient denies chest pain, shortness of breath, nausea, vomiting, fever, chills , and new onset weakness. Physical Exam Vital Signs: Temp Pulse Resp BP Pulse Ox 97.6 F 76 20 113/75 93 02/11/17 03:52 02/11/17 03:52 02/11/17 03:52 02/11/17 03:52 02/11/17 03:52 Intake & Output 02/10/17 02/11/17 02/12/17 06:59 06:59 06:59 Intake Total 2142 1515 Output Total 75 1600 Balance 2066 - Weight 61 kg Exam: General: Awake, alert, oriented to self and place; no acute respiratory distress HEENT:Atraumatic, normocephalic, pupils equal round and reactive to light, oropharynx moist, pink, no scleral icterus, no conjunctival injection Neck: no JVD, trachea midline Chest: Prolonged expiratory phase, otherwise clear to auscultation CV: Regular rate and rhythm, normal S1 and S2, no murmur, rub, gallop Abdomen: soft, nontender to palpation, nondistended, active bowel sounds; no rebound, rigidity, or guarding Extremities: No cyanosis, clubbing; trace edema Neuro: Cranial nerves II through XII are grossly intact without focal deficits Psych: Perseverates, confabulates, normal mood affect Results Laboratory Results: 02/11/17 06:14 02/11/17 06:14 02/10/17 02/10/17 02/10/17 07:35 09:30 11:30 WBC RBC Hgb Hct MCV MCH MCHC RDW Plt Count Seg Neutrophils % Lymphocytes % Monocytes % Eosinophils % Basophils % Absolute Neutrophils Absolute Lymphocytes Absolute Monocytes Absolute Eosinophils Absolute Basophils Sodium Cancelled 125.4 L 125.7 L Potassium Cancelled 4.8 4.8 Chloride Cancelled 86 L 87 L Carbon Dioxide Cancelled 34 H 32 H Anion Gap Cancelled 5 7 BUN Cancelled 6 L 6 L Creatinine Cancelled 0.54 0.59 Est GFR ( Amer) Cancelled > 60 > 60 Est GFR (Non-Af Amer) Cancelled > 60 > 60 Glucose Cancelled 107 96 Calcium Cancelled 8.2 L 8.1 L Magnesium 02/10/17 02/11/17 02/11/17 12:55 06:14 06:14 WBC 4.8 RBC 3.54 L Hgb 10.6 L Hct 31.8 L MCV 90 MCH 29.9 MCHC 33.3 RDW 19.1 H Plt Count 192 Seg Neutrophils % 64.2 Lymphocytes % 19.7 Monocytes % 14.8 H Eosinophils % 0.1 Basophils % 1.2 Absolute Neutrophils 3.1 Absolute Lymphocytes 0.9 Absolute Monocytes 0.7 Absolute Eosinophils 0.0 Absolute Basophils 0.1 Sodium 127.3 L 128.2 L Potassium 3.9 4.3 Chloride 84 L 88 L Carbon Dioxide 34 H 35 H Anion Gap 9 5 BUN 6 L 8 Creatinine 0.50 L 0.56 Est GFR ( Amer) > 60 > 60 Est GFR (Non-Af Amer) > 60 > 60 Glucose 93 116 H Calcium 8.3 L 8.8 Magnesium 2.0 02/08/17 02/08/17 02/08/17 13:40 13:40 19:25 Creatine Kinase 373 H 287 H CK-MB (CK-2) 12.90 H Troponin I 0.013 02/08/17 02/09/17 02/09/17 19:25 00:18 00:18 Creatine Kinase 222 H CK-MB (CK-2) 9.94 H 6.62 H Troponin I 0.019 0.018 Impressions: Chest X-Ray 02/08/17 11:49 IMPRESSION: No significant interval change. No acute findings. Other findings as noted above. Assessment & Plan - Diagnosis (1) COPD with acute exacerbation Is this a current diagnosis for this admission?: YesPlan: Nebulized treatments and prednisone. (2) Hyponatremia Is this a current diagnosis for this admission?: YesPlan: Patient has severe symptomatic hyponatremia secondary to be associated with volume overload secondary to beer potomania. Will place patient on fluid restriction. Administer IV Lasix and monitor daily BMP. Patient goal sodium in the next 24 hours is 130. (3) Acute and chronic respiratory failure with hypoxia Is this a current diagnosis for this admission?: YesPlan: Goal oxygen saturation between 88 and 92%. Use oxygen supplementation as needed. (4) Alcohol intoxication Qualifiers: Complication of substance-induced condition: with unspecified complication Qualified Code(s): F10.929 - Alcohol use, unspecified with intoxication, unspecified Is this a current diagnosis for this admission?: YesPlan: Place patient on thiamine, folic acid, scheduled Valium and prn Ativan. Patient is no longer legally intoxicated. Patient is having active withdrawal and will continue IVC for his protection given his hyponatremia. Competency evaluation pending. (5) Rhabdomyolysis Qualifiers: Rhabdomyolysis type: non-traumatic Qualified Code(s): M62.82 - Rhabdomyolysis Is this a current diagnosis for this admission?: YesPlan: Resolved (6) Tobacco abuse Is this a current diagnosis for this admission?: YesPlan: Nicotine patch as needed (7) Protein-calorie malnutrition, moderate Is this a current diagnosis for this admission?: Yes (8) Hypothyroidism Is this a current diagnosis for this admission?: Yes (9) Alcohol withdrawal Qualifiers: Complication of substance-induced condition: with delirium Qualified Code(s): F10.231 - Alcohol dependence with withdrawal delirium Is this a current diagnosis for this admission?: YesPlan: Continue IVC and scheduled Valium and Ativan as needed. Thiamine and folic acid. - Time Time Spent with patient: 25-34 minutes Medications reviewed and adjusted accordingly: Yes
[2017-02-11] MEDS: LORAZEPAM INJ 2 MG/1 ML VIAL IV PRN ×3 (13:14→22:14)
[2017-02-11] MEDS ORDERED: THIAMINE HCL 100 MG TABLET PO ONE (14:00)
[2017-02-11] MEDS ORDERED: MULTIVIT-STRESS FORMULA/ZINC TABLET PO ONE (14:00)
[2017-02-11] MEDS ORDERED: FOLIC ACID 1 MG TABLET PO ONE (14:00)
[2017-02-11] MEDS ORDERED: CLOPIDOGREL BISULFATE 75 MG TABLET PO ONE (15:45)
[2017-02-11] MEDS ORDERED: MAGNESIUM OXIDE 400 MG TABLET PO SCH (17:00)
--- NOTE | 2017-02-11 17:41 | PSYCHOLOGICAL NOTE ---
Psych Note - Psych Note Psych Note: Patient is a 61 year old male who has been admitted to [facility] Hospitalist's services due to critically high sodium after he was found in the bushes, disoriented by [place]IK[place]. Patient is known to this hospital for numerous episodes related to ETOH. A careful review of patient's EMR suggest patient's consultation is for capacity. At this time, a capacity evaluation is contraindicated due to a) acute etoh withdrawal as documented, and b) his baseline has been observed in the past to include A&Ox4 and functioning within normal limits. I consulted with Dr. Magaña in regards to the care and management of this patient.
[2017-02-11] MEDS ORDERED: METOPROLOL SUCCINATE 25 MG TAB.SR.24H PO SCH (22:00)
[2017-02-11] MEDS: HALOPERIDOL LACTATE INJ 5 MG/1 ML VIAL IV PRN (22:15)
[2017-02-12] MEDS ORDERED: LACTULOSE SYRUP 20 GM/30 ML UDCUP PO ONE (00:15)
[2017-02-12] MEDS: LANSOPRAZOLE 30 MG TAB.RAP.DR PO SCH ×2 (06:03→16:05)
[2017-02-12] MEDS: DIAZEPAM 5 MG TABLET PO SCH ×2 (06:03→11:06)
[2017-02-12] MEDS: HEPARIN SOD (PORCINE) 5,000 UNIT/ML 1 ML SYRINGE SUBCUT SCH ×2 (06:03→13:31)
[2017-02-12 06:14] LABS: ABSOLUTE LYMPHOCYTES (AUTO) 0.9 10^3/uL (0.5-4.7); ABSOLUTE MONOCYTES (AUTO) 0.9 10^3/uL (0.1-1.4); ABSOLUTE NEUT (AUTO) 3.4 10^3/uL (1.7-8.2); BASOPHILS % (AUTO) 0.9 % (0-2); EOSINOPHILS % (AUTO) 0.1 % (0-6); HEMATOCRIT 29.3 % (37.9-51.0); HEMOGLOBIN 9.6 g/dL (13.5-17.0); HGB HCT DIFFERENCE -0.5; LYMPHOCYTES % (AUTO) 17.4 % (13-45); MEAN CORPUSCULAR HEMOGLOBIN 29.5 pg (27.0-33.4); MEAN CORPUSCULAR HGB CONC 32.8 g/dL (32.0-36.0); MEAN CORPUSCULAR VOLUME 90 fl (80-97); MONOCYTES % (AUTO) 16.6 % (3-13); RED BLOOD COUNT 3.26 10^6/uL (4.35-5.55); RED CELL DISTRIBUTION WIDTH 18.8 % (11.5-14.0); WHITE BLOOD COUNT 5.3 10^3/uL (4.0-10.5)
[2017-02-12 06:35] LABS: ANION GAP 7 (5-19); BLOOD UREA NITROGEN 13 mg/dL (7-20); CARBON DIOXIDE 33 mmol/L (22-30); CHLORIDE 90 mmol/L (98-107); CREATININE RESULT 0.67 mg/dL (0.52-1.25); GLUCOSE 103 mg/dL (75-110); MAGNESIUM 1.9 mg/dL (1.6-2.3); PHOSPHORUS 4.2 mg/dL (2.5-4.5); POTASSIUM 4.5 mmol/L (3.6-5.0); SODIUM 130.4 mmol/L (137-145)
[2017-02-12] MEDS: IPRATROPIUM/ALBUTEROL 0.5-2.5 MG/3 ML AMPUL NEB SCH (08:13)
[2017-02-12] MEDS: DOCUSATE SODIUM 100 MG CAPSULE PO SCH (09:34)
[2017-02-12] MEDS: NICOTINE 21 MG/24 HR PATCH.TD24 TD SCH (09:34)
[2017-02-12] MEDS: LEVOTHYROXINE SODIUM 0.075 MG TABLET PO SCH (09:35)
[2017-02-12] MEDS: BUDESONIDE/FORMOTEROL 160-4.5 MCG 60 PUFF/6 GM MDI IH SCH (09:37)
[2017-02-12] MEDS ORDERED: CYANOCOBALAMIN (VITAMIN B-12) INJ 1000 MCG/1 ML VIAL IM SCH (10:00)
[2017-02-12] MEDS ORDERED: CLOPIDOGREL BISULFATE 75 MG TABLET PO SCH (10:00)
[2017-02-12] MEDS ORDERED: FERROUS SULFATE 325 MG TABLET PO SCH (10:00)
[2017-02-12] MEDS ORDERED: FOLIC ACID 1 MG TABLET PO SCH (10:00)
[2017-02-12] MEDS ORDERED: MULTIVIT-STRESS FORMULA/ZINC TABLET PO SCH (10:00)
[2017-02-12] MEDS ORDERED: THIAMINE HCL 100 MG TABLET PO SCH (10:00)
[2017-02-12 16:29] VITALS: BP 127/60
--- NOTE | 2017-02-12 16:52 | PDOC DISCHARGE SUMMARY ---
General - Admit/Disc Date/PCP Admission Date/Primary Care Provider: 02/08/17 12:56 Discharge Date: 02/12/17 - Discharge Diagnosis (1) Hyponatremia Is this a current diagnosis for this admission?: Yes (2) Alcohol intoxication Is this a current diagnosis for this admission?: Yes (3) COPD (chronic obstructive pulmonary disease) Is this a current diagnosis for this admission?: Yes (4) Rhabdomyolysis Is this a current diagnosis for this admission?: Yes (5) Tobacco abuse Is this a current diagnosis for this admission?: Yes - Additional Information Discharge Diet: Regular Discharge Activity: Activity As Tolerated, Balance Activity w/Rest Home Medications: Albuterol Sulfate [Ventolin 0.083% Neb 2.5 mg/3 mL Ampul] 3 ml NEB Q8HP PRN Albuterol Sulfate [Ventolin HFA MDI 18 GM] 2 puff IH Q4HP PRN 02/07/17 Alprazolam [Xanax 0.5 mg Tablet] 0.5 mg PO QHS 02/07/17 Budesonide/Formoterol Fumarate [Symbicort HFA 160-4.5 mcg Inhaler 6 gm] 2 puff IH DAILY 02/07/17 Levothyroxine Sodium [Synthroid 0.075 mg Tablet] 0.075 mg PO DAILY 02/07/17 Lisinopril [Prinivil] 20 mg PO DAILY 02/07/17 Tiotropium Heath [Spiriva Respimat] 2 puff IH DAILY 02/07/17 Clopidogrel Bisulfate [Clopidogrel] 75 mg PO DAILY 02/11/17 Rosuvastatin Calcium 20 mg PO DAILY 02/11/17 Cyanocobalamin/Folic Acid [Vitamin B-12 & Folic Acid Tablet] 1 each PO DAILY # 30 tablet 02/12/17 Ferrous Sulfate [Feosol 325 mg Tablet] 325 mg PO DAILY #30 tablet 02/12/17 Thiamine HCl [Thiamine 100 mg Tablet] 100 mg PO DAILY #30 tablet 02/12/17 History of Present Illness Patient complains of: Alcohol intoxication History of Present Illness: LEIF NUÑEZ is a 61 year old male that is well-known to our facility for recurrent admissions associated with alcohol abuse presents with alcohol intoxication after being found by [employer] crawling out from under a cabrera. Patient had elevated serum alcohol level on admission and was also hyponatremic. Hyponatremia corrected over the course of hospitalization with abstinence from alcohol. Patient has been counseled on alcohol cessation. He is alert and oriented to person, place, year and able to have appropriate conversation at time of discharge. I have discussed alcohol cessation with him on day of discharge. I have offered him outpatient services but he does not seem interested. Physical Exam Vital Signs: Temp Pulse Resp BP Pulse Ox 97.8 F 73 18 127/60 H 100 02/12/17 16:16 02/12/17 16:16 02/12/17 16:16 02/12/17 16:16 02/12/17 16:16 Intake & Output 02/11/17 02/12/17 02/13/17 06:59 06:59 06:59 Intake Total 1522 1282 464 Output Total 1600 1150 Balance -78 132 464 Weight 54 kg 51.9 kg GENERAL: No acute distress HEENT: Conjunctiva clear, nonicteric, moist mucous membranes, no JVD, midline trachea RESPIRATORY: Clear to auscultation bilaterally, no wheezes, no rhonchi CARDIAC: Regular rate and rhythm, no murmurs/gallops/rubs ABDOMEN: Soft, nondistended, nontender, positive bowel sounds, no rebound, no guarding EXTREMETIES: No edema, cyanosis, clubbing NEUROLOGIC: Alert, oriented to person/place/time, CN's grossly intact, no focal deficits SKIN: No rash, wounds PSYCH: Normal mood, normal affect Results Laboratory Results: 02/12/17 06:01 02/12/17 06:01 02/12/17 02/12/17 06:01 06:01 WBC 5.3 RBC 3.26 L Hgb 9.6 L Hct 29.3 L MCV 90 MCH 29.5 MCHC 32.8 RDW 18.8 H Plt Count 249 Seg Neutrophils % 65.0 Lymphocytes % 17.4 Monocytes % 16.6 H Eosinophils % 0.1 Basophils % 0.9 Absolute Neutrophils 3.4 Absolute Lymphocytes 0.9 Absolute Monocytes 0.9 Absolute Eosinophils 0.0 Absolute Basophils 0.0 Sodium 130.4 L Potassium 4.5 Chloride 90 L Carbon Dioxide 33 H Anion Gap 7 BUN 13 Creatinine 0.67 Est GFR ( Amer) > 60 Est GFR (Non-Af Amer) > 60 Glucose 103 Calcium 9.0 Phosphorus 4.2 Magnesium 1.9 02/08/17 02/08/17 02/08/17 13:40 13:40 19:25 Creatine Kinase 373 H 287 H CK-MB (CK-2) 12.90 H Troponin I 0.013 02/08/17 02/09/17 02/09/17 19:25 00:18 00:18 Creatine Kinase 222 H CK-MB (CK-2) 9.94 H 6.62 H Troponin I 0.019 0.018 Impressions: Chest X-Ray 02/08/17 11:49 IMPRESSION: No significant interval change. No acute findings. Other findings as noted above. Qualifiers PATEINT BEING DISCHARGED WITH ANY OF THE FOLLOWING DIAGNOSIS?: No Plan Time Spent: Less than 30 Minutes
== END 2017-02-12 17:27 | disposition home or self-care (01) | DRG 640 ==
LOC: ER 09:58 → EH 12:44 → UNDOADMIN 12:44 → EH 12:56 → 3W 21:59
PROVIDERS: ADMIT Family Medicine; ATTEND Family Medicine
PROC: 3E0F73Z Introduction of Anti-inflammatory into Respiratory Tract, Via Natural or Artificial Opening (ICD-10-PCS; principal; 2017-02-08)
DX: E87.1 Hypo-osmolality and hyponatremia (principal); J96.21 Acute and chronic respiratory failure with hypoxia; F10.239 Alcohol dependence with withdrawal, unspecified; J44.1 Chronic obstructive pulmonary disease with (acute) exacerbation; M62.82 Rhabdomyolysis; E44.0 Moderate protein-calorie malnutrition; Z68.1 Body mass index [BMI] 19.9 or less, adult; F17.210 Nicotine dependence, cigarettes, uncomplicated; J44.9 Chronic obstructive pulmonary disease, unspecified; Z66 Do not resuscitate; I25.10 Atherosclerotic heart disease of native coronary artery without angina pectoris; I25.2 Old myocardial infarction; I10 Essential (primary) hypertension; E78.00 Pure hypercholesterolemia, unspecified; Z87.81 Personal history of (healed) traumatic fracture; M19.90 Unspecified osteoarthritis, unspecified site; Z82.49 Family history of ischemic heart disease and other diseases of the circulatory system; Z82.61 Family history of arthritis; Z82.5 Family history of asthma and other chronic lower respiratory diseases; F10.229 Alcohol dependence with intoxication, unspecified
CPT/HCPCS: 36415; 71010; 80048; 80053; 80307; 81001; 82140; 82550; 82553; 83735; 84100; 84484; 85025; 85610; 85730; 93005; 93010; 96361; 96374; 99291; G8978-GP; G8979-GP; J0610; J1630; J1644; J1940; J2060; J2597; J3420; J3490; J7030; J7060; J7512; J7620

== ENCOUNTER 2017-02-13 15:52 | Emergency (ER) | payer MEDICARE, MEDICAID ==
--- NOTE | 2017-02-13 16:12 | ER Document Report ---
ED Respiratory Problem - General Chief Complaint: Shortness Of Breath Stated Complaint: DIFFICULTY BREATHING Notes: The patient is a 61-year-old male, past medical history COPD, presents with his chronic shortness of breath. He walked up to an ambulance and was given a DuoNeb. On arrival to the emergency room, the patient says that he feels much better and is requesting to leave. He is well-known to this emergency department and frequently will leave after a DuoNeb. Says that he only had one beer today and he is walking steadily. Denies syncope, chest pain, fevers, cough, nausea, vomiting, leg swelling or rash. TRAVEL OUTSIDE OF THE [place] IN LAST 30 DAYS: No - Related Data Allergies/Adverse Reactions: No Known Allergies Allergy (Verified 12/25/16 04:45) Past Medical History - General Information source: Patient - Social History Smoking Status: Current Every Day Smoker Family History: Reviewed & Not Pertinent, Arthritis, CAD, COPD - Past Medical History Cardiac Medical History: Reports: Hx Coronary Artery Disease, Hx Heart Attack - LA occured in 2002. Takes ASA now, used to be on hypertensive medications, Hx Hypercholesterolemia, Hx Hypertension Pulmonary Medical History: Reports: Hx Asthma, Hx Bronchitis, Hx COPD, Hx Pneumonia Musculoskeltal Medical History: Reports Hx Arthritis, Reports Hx Musculoskeletal Deformity, Reports Hx Musculoskeletal Trauma Psychiatric Medical History: Reports: Hx Borderline Personality Disorder, Hx Depression Traumatic Medical History: Reports: Hx Fractures - Left rib fractures with pneumothorax requiring chest tube on 05/23/2016 Past Surgical History: Reports: Hx Cardiac Catheterization - Immunizations Immunizations up to date: Yes Hx Diphtheria, Pertussis, Tetanus Vaccination: - unknown Hx Pneumococcal Vaccination: 02/22/13 Review of Systems - Review of Systems Notes: REVIEW OF SYSTEMS: CONSTITUTIONAL: -fevers, -chills EENT: -eye pain, -difficulty swallowing, -nasal congestion CARDIOVASCULAR:-chest pain, -syncope. RESPIRATORY: -cough, +SOB GASTROINTESTINAL: -abdominal pain, - nausea, -vomiting, -diarrhea GENITOURINARY: -dysuria, -hematuria MUSCULOSKELETAL: -back pain, -neck pain SKIN: -rash or skin lesions. HEMATOLOGIC: -easy bruising or bleeding. LYMPHATIC: -swollen, enlarged glands. NEUROLOGICAL: -altered mental status or loss of consciousness, -headache, - neurologic symptoms PSYCHIATRIC: -anxiety, -depression. ALL OTHER SYSTEMS REVIEWED AND NEGATIVE. Physical Exam - Vital signs Vitals: Resp 18 02/13/17 16:10 - Notes Notes: PHYSICAL EXAMINATION: GENERAL: Clinically sober. Well-appearing, well-nourished and in no acute distress. HEAD: Atraumatic, normocephalic. EYES: Pupils equal round and reactive to light, extraocular movements intact, sclera anicteric, conjunctiva are normal. ENT: nares patent, oropharynx clear without exudates. Moist mucous membranes. NECK: Normal range of motion, supple without lymphadenopathy LUNGS: Mild end-expiratory wheezing. No respiratory distress. HEART: Regular rate and rhythm without murmurs ABDOMEN: Soft, nontender, normoactive bowel sounds. No guarding, no rebound. No masses appreciated. EXTREMITIES: Normal range of motion, no pitting or edema. No cyanosis. NEUROLOGICAL: Cranial nerves grossly intact. Normal speech, normal gait. Normal sensory and motor exams. PSYCH: Normal mood, normal affect. SKIN: Warm, Dry, normal turgor, no rashes or lesions noted. Course - Re-evaluation Re-evalutation: After DuoNeb, patient is requesting to leave AMA. He says that he feels much better. He is clinically sober and is able to make his own decisions. Spoke to patient about concern with his breathing and slight hypotension (103/65) the risks of leaving, including , heart attack, head injury or cardiac/ respiratory distress. He is able to verbalize these risks. Gave him 2 L of water in the ER and watched him drink before he left. EMS said that they would drop him back off. Told to return at any time. - Vital Signs Vital signs: Temp Pulse Resp BP Pulse Ox 18 02/13/17 16:10 Discharge - Discharge Clinical Impression: COPD exacerbation Condition: Stable Disposition: AGAINST MEDICAL ADVICE Additional Instructions: Drink plenty of water. Return anytime to the emergency room when you have worsening symptoms. BRONCHITIS: You have acute bronchitis. This disease is an infection or inflammation of the air passageways in your lungs. Symptoms usually include cough, low grade fever, shortness of breath, and wheezing. The cough usually persists for a couple of weeks. Most cases of bronchitis get better without antibiotics. We prescribe antibiotics when we believe bacteria are damaging your airways, or if there's high risk the bronchitis will worsen into pneumonia. Increase your fluid intake. A cool mist humidifier may make your lungs more comfortable. An expectorant (cough medicine that loosens phlegm) can help. If you smoke, STOP!!! Recovery from bronchitis can be somewhat slow, but you should see improvement within a day or two. Repeated episodes of bronchitis may result in lung damage -- for example, chronic bronchitis, recurrent pneumonias, or emphysema. Call the doctor if you develop increasing fever, shortness of breath, chest pain, bloody sputum, or otherwise worsen. If you have not improved at all after several days, contact the physician. BRONCHITIS WITH BRONCHOSPASM (WHEEZING): You have bronchitis with bronchospasm (wheezing). Sometimes people develop wheezing with a chest cold. This occurs either because of an underlying tendency toward asthma or because the virus itself irritates the bronchial tubes. This irritation causes cough, shortness of breath, and wheezing. Emergency treatment of bronchospasm may include adrenaline shots or bronchodilator aerosol. You may feel lightheaded and have a rapid pulse for an hour or two. Rest and get plenty of fluids. At home, we'll treat you with a bronchodilator inhaler. Corticosteroids may be required for some patients. Until you recover, avoid chemical fumes, dusts, pollens, and exercising in very cold or dry air. If you smoke, stop now! Most cases of bronchitis get better without antibiotics. We prescribe antibiotics when we believe bacteria are damaging your airways, or if there's high risk the bronchitis will worsen into pneumonia. Increase your fluid intake. A cool mist humidifier may make your lungs more comfortable. An expectorant (cough medicine that loosens phlegm) can help. Repeated episodes of bronchitis and bronchospasm may result in lung damage -- for example, chronic bronchitis, recurrent pneumonias, or emphysema. If you develop a fever, increased wheezing, chest pain, or severe shortness of breath, you should contact the doctor immediately. DECONGESTANT MEDICATION: A decongestant medicine has been prescribed. Often this medicine is combined in the same tablet with an antihistamine or expectorant. This type of medicine is helpful in treating a bad cold or sinus condition, as well as in treatment of the nasal congestion of hay fever. It is not of much benefit for lung infections. Decongestant medicines are related to stimulants. They can cause an increase in blood pressure and heart rate. Persons with heart disease and high blood pressure should not take decongestants without discussing this with the physician. If you develop palpitations, chest pain, headache, or tremors, stop the medicine and consult your physician. COUGH-SUPPRESSANT & EXPECTORANT MEDICATION: You are to use a cough medication as needed for relief of symptoms. This medicine is a combination of an expectorant (to make the mucous thinner and more easily "coughed up") and a cough suppressant (to reduce the frequency of coughing). The cough-suppressant medicine is related to narcotics. You may experience mild nausea and sleepiness. Some patients who are very sensitive to narcotics may have stomach pain from this medicine. Taking the medicine with food reduces these side effects. Do not drive or work with machinery until you know how this medicine affects you. The expectorant should have no side effects. Iodine-containing expectorants (such as organidin) should not be taken by persons with active thyroid disease unless approved by your doctor. Call the doctor if you develop shortness of breath, hives, rash, itching, lightheadedness, or severe nausea and vomiting. INHALED BRONCHODILATORS: You have received a treatment of and/or prescription for an inhaled bronchodilator -- a medication which stimulates the airways in the lung to dilate. This improves the flow of air in asthma, bronchitis, and emphysema. These medicines have some similarity to adrenaline, and can cause similar side effects: shakiness, racing heart, and a sense of nervousness. These side effects decrease with time. Contact your doctor if these side effects are severe. Do not over-use the medicine. Too-frequent use of the inhaler may make it ineffective. Call your doctor if the inhaler is not controlling your symptoms at the prescribed doses. STEROID MEDICATION: You have been given an injection of or oral medicine of the cortisone/ steroid class. This medication is used to control inflammation or allergy. Lito t is usually only given for a short period of time, until the acute process subsides. There are usually no side effects from short-term use of cortisone-like medications. Some persons feel an increased sense of well-being and are not sleepy at bedtime. Long-term use of cortisone medications is best avoided, unless required for a severe condition. If your condition does not remit, or relapses after the course of corticosteroid medication, you should consult your physician. ANTIBIOTIC THERAPY: You have been given an antibiotic prescription. It's important that you take all the medication, unless instructed otherwise by your physician. Failure to complete the entire course can result in relapse of your condition. Common side effects of antibiotics include nausea, intestinal cramping, or diarrhea. Women may develop vaginal yeast infections, and babies can get yeast (thrush) in the mouth following the use of antibiotics. Contact your physician if you develop significant side effects from this medication. Allergy to this antibiotic can result in hives, wheezing, faintness, or itching. If symptoms of allergy occur, stop the medication and call your doctor. DOXYCYCLINE: Doxycycline (Vibramycin, Doryx) is an antibiotic of the tetracycline family. This type of drug is useful for infections of the respiratory tract and genital tract, and is sometimes used for intestinal infections. Unlike most tetracyclines, doxycycline can be taken with food. It is longer acting, and (usually) less prone to side effects than regular tetracycline. Tetracycline antibiotics can stain immature teeth and SHOULD NOT BE TAKEN BY CHILDREN, NURSING MOTHERS, OR WOMEN. Tetracyclines can make you more prone to sunburn. Abdominal cramping, nausea, and diarrhea are occasional side effects. Women may experience vaginal yeast infections. Call the doctor at once if you develop hives, itching, shortness of breath , or lightheadedness. AZITHROMYCIN: Azithromycin (Zithromax) is a broad spectrum antibiotic in the same class as erythromycin. It can treat a variety of bacterial infections, but is most frequently used for respiratory infections. Azithromycin is extremely long-lasting. It accumulates in body tissues and continues to kill bacteria for many days. In order to improve absorption, Azithromycin should be taken at least one hour before or two hours after a meal. It does not have the same strong tendency to upset the stomach as erythromycin and is usually very well tolerated. Patients who have had a rash or other true allergic reactions to erythromycin should not take this medication. Call if you develop gastrointestinal distress, severe diarrhea, rash, hives, itching, or shortness of breath. AMOXICILLIN: Amoxicillin is a member of the penicillin family. It covers the germs likely to cause ear, bronchial, and urinary infections better than plain penicillin. Amoxicillin can be taken without regard to meals. Nausea after taking the medication is rare, but can occur. Diarrhea can occur, particularly in small children. Vaginal yeast infections and oral thrush in infants are also common. Contact your physician if these problems occur. Allergy to penicillins is common. If you have had an allergic reaction to any drug of the penicillin family, you should never take any other penicillin. Notify your doctor at once if you develop hives, itching, swelling, faintness, or shortness of breath. Less serious side effects can include nausea or diarrhea. USE OF ACETAMINOPHEN (Tylenol): Acetaminophen may be taken for pain relief or fever control. It's much safer than aspirin, offering a wider range of "safe" dosages. It is safe during . Some brand names are Tylenol, Panadol, Datril, Anacin 3, Tempra, and Liquiprin. Acetaminophen can be repeated every four hours. The following are maximum recommended dosages: >89 pounds or adults 650 mg to 900 mg Acetaminophen can be repeated every four hours. Maximum dose not to exceed 4000 mg a day. SMOKING: If you smoke, you should stop smoking. The tar and chemicals in cigarette smoke are harmful. Smoking has been shown to cause: emphysema chronic bronchitis lung cancer mouth and throat cancer stomach and pancreas cancer premature aging defects In addition, smoking increases ear and lung infections in children of smokers. FOLLOW-UP CARE: If you have been referred to a physician for follow-up care, call the physician s office for an appointment as you were instructed or within the next two days. If you experience worsening or a significant change in your symptoms, notify the physician immediately or return to the Emergency Department at any time for re-evaluation.
== END 2017-02-13 16:40 | disposition left against medical advice (07) ==
LOC: ER 15:52
DX: J44.1 Chronic obstructive pulmonary disease with (acute) exacerbation (principal); R06.02 Shortness of breath; F17.200 Nicotine dependence, unspecified, uncomplicated; I25.10 Atherosclerotic heart disease of native coronary artery without angina pectoris; I25.2 Old myocardial infarction; I10 Essential (primary) hypertension; Z87.01 Personal history of pneumonia (recurrent)
CPT/HCPCS: 99284

== ENCOUNTER 2017-02-20 22:00 | Emergency (ER) | payer MEDICARE, MEDICAID ==
--- NOTE | 2017-02-20 22:25 | ER Document Report ---
ED General - General Stated Complaint: CHEST PAIN Time Seen by Provider: 02/20/17 22:24 Mode of Arrival: Medic Information source: Patient TRAVEL OUTSIDE OF THE [place] IN LAST 30 DAYS: No - HPI Notes: Patient is a 61-year-old male well-known to the emergency department for multiple recurrent visits for chest pain and dyspnea and alcohol intoxication who presents by EMS with reports of chest pain and shortness of breath. The patient en route received a 12-lead, DuoNeb aspirin and a sublingual nitroglycerin, but upon arrival refused further interventions and refused to ask any other questions. The patient arrived at 2 2200 and and I wanted to assess patient [id number] to find the standing in the hallway in route out of the emergency department. I asked the patient if we could help him in any way, and he states "no more questions. I am leaving." The patient refused further questions from nursing staff. The patient pulled out his own IV. At the time on evaluation patient had clear speech, Normal gait for him using a cane. I informed the patient that I could not exclude any problems with his heart or lungs related to his premature departure, and he expressed understanding of this. Patient stated "I know I am dying." No obvious suicidal or homicidal ideation. - Related Data Allergies/Adverse Reactions: No Known Allergies Allergy (Verified 12/25/16 04:45) Past Medical History - General Information source: Patient - Social History Smoking Status: Current Every Day Smoker Frequency of alcohol use: Heavy Drug Abuse: None Lives with: Family Family History: Reviewed & Not Pertinent, Arthritis, CAD, COPD - Past Medical History Cardiac Medical History: Reports: Hx Coronary Artery Disease, Hx Heart Attack - [place] occured in 2002. Takes ASA now, used to be on hypertensive medications, Hx Hypercholesterolemia, Hx Hypertension Pulmonary Medical History: Reports: Hx Asthma, Hx Bronchitis, Hx COPD, Hx Pneumonia Musculoskeltal Medical History: Reports Hx Arthritis, Reports Hx Musculoskeletal Deformity, Reports Hx Musculoskeletal Trauma Psychiatric Medical History: Reports: Hx Borderline Personality Disorder, Hx Depression Traumatic Medical History: Reports: Hx Fractures - Left rib fractures with pneumothorax requiring chest tube on 05/23/2016 Past Surgical History: Reports: Hx Cardiac Catheterization - Immunizations Immunizations up to date: Yes Hx Diphtheria, Pertussis, Tetanus Vaccination: - unknown Hx Pneumococcal Vaccination: 02/22/13 Review of Systems - Review of Systems Notes: Review of systems unable to completely perform given the patient's refusal to answer any further questions. By report from EMS he had chest pain and shortness of breath Physical Exam - Notes Notes: Patient refused to allow me to listen to his lungs or heart and refused any further exam. On my exam, conjunctiva were clear, and the patient had a normal gait and normal speech for him. He ambulated with a cane without any difficulty. There was no clear obvious evidence for significant intoxication at the time. I was unable to perform any other physical exam. Discharge - Discharge Clinical Impression: Left against medical advice Chest pain Qualifiers: Chest pain type: unspecified Qualified Code(s): R07.9 - Chest pain, unspecified Condition: Fair Disposition: AGAINST MEDICAL ADVICE
[2017-02-20 22:48] VITALS: BP 99/56
--- NOTE | 2017-02-21 07:14 | EKG REPORT ---
SEVERITY:- NORMAL ECG - SINUS RHYTHM : Confirmed by: Sruthi Rivas MD 21-Feb-2017 07:13:51
== END 2017-02-20 23:11 | disposition left against medical advice (07) ==
LOC: ER 22:00
DX: R07.9 Chest pain, unspecified (principal); R06.02 Shortness of breath; F17.200 Nicotine dependence, unspecified, uncomplicated; I25.10 Atherosclerotic heart disease of native coronary artery without angina pectoris; I25.2 Old myocardial infarction; I10 Essential (primary) hypertension; J44.9 Chronic obstructive pulmonary disease, unspecified; Z87.01 Personal history of pneumonia (recurrent); Z53.20 Procedure and treatment not carried out because of patient's decision for unspecified reasons
CPT/HCPCS: 93005; 93010; 99285

== ENCOUNTER 2017-02-21 01:19 | Inpatient (IN) | payer MEDICARE, MEDICAID ==
[2017-02-21] MEDS ORDERED: METHYLPREDNISOLONE INJ 125 MG/2 ML SDV IV ONE (01:53)
--- NOTE | 2017-02-21 02:13 | ER Document Report ---
ED General - General Chief Complaint: Shortness Of Breath Stated Complaint: DIFFICULTY BREATHING Time Seen by Provider: 02/21/17 01:27 Mode of Arrival: Medic Information source: Patient, Law Enforcement, Emergency Med Personnel TRAVEL OUTSIDE OF THE [place] IN LAST 30 DAYS: No - HPI Notes: Patient is a 61-year-old male well-known to the urgency department for alcohol abuse and tobacco abuse, chronic COPD, medicine noncompliance and has had over 100 EMS transport to the emergency department this calendar year. Patient is a convicted sexual predator and has been arrested for rape charges. Patient also has repetitively find old nurses when he presents intoxicated. Patient was seen earlier this evening with chest pain shortness of breath and refused further questions and left AGAINST MEDICAL ADVICE. He was outside of a local convenient store panhandling and accosting patrons of the store requesting money for alcohol when the police were called and found he had outstanding warrants for previous drunken disorderly conduct in not showing up for court appearances and so the brought him into the custodial. Immediately upon arriving at the custodial he reported chest pain and shortness of breath and they brought him in for evaluation again. Patient had O2 sat 88-91% by EMS and they gave him a DuoNeb. He was without complaint sleeping at time of arrival with police in attendance at the bedside. Patient has lower extremity superficial lacerations, but denies pain there. His tetanus is up-to-date. - Related Data Allergies/Adverse Reactions: No Known Allergies Allergy (Verified 12/25/16 04:45) Past Medical History - General Information source: Patient - Social History Smoking Status: Current Every Day Smoker Frequency of alcohol use: Heavy Drug Abuse: None Lives with: Family Family History: Reviewed & Not Pertinent, Arthritis, CAD, COPD - Past Medical History Cardiac Medical History: Reports: Hx Coronary Artery Disease, Hx Heart Attack - [place] occured in 2002. Takes ASA now, used to be on hypertensive medications, Hx Hypercholesterolemia, Hx Hypertension Pulmonary Medical History: Reports: Hx Asthma, Hx Bronchitis, Hx COPD, Hx Pneumonia Musculoskeltal Medical History: Reports Hx Arthritis, Reports Hx Musculoskeletal Deformity, Reports Hx Musculoskeletal Trauma Psychiatric Medical History: Reports: Hx Borderline Personality Disorder, Hx Depression Traumatic Medical History: Reports: Hx Fractures - Left rib fractures with pneumothorax requiring chest tube on 05/23/2016 Past Surgical History: Reports: Hx Cardiac Catheterization - Immunizations Immunizations up to date: Yes Hx Diphtheria, Pertussis, Tetanus Vaccination: - unknown Hx Pneumococcal Vaccination: 02/22/13 Review of Systems - Review of Systems Notes: REVIEW OF SYSTEMS: CONSTITUTIONAL : Denies fever, chills, or sweats. Denies recent illness. EENT: Denies eye, ear, throat, or mouth pain or symptoms. Denies nasal or sinus congestion or discharge. Denies throat, tongue, or mouth swelling or difficulty swallowing. CARDIOVASCULAR: Denies palpitations or racing or irregular heart beat. Denies ankle edema. RESPIRATORY: Denies cough, cold, or chest congestion. Patient reports chronic chest pain and chronic dyspnea. He is noncompliant with his nebulizer treatments and continues to smoke. GASTROINTESTINAL: Denies abdominal pain or distention. Denies nausea, vomiting , or diarrhea. Denies blood in vomitus, stools, or per rectum. Denies black, tarry stools. Denies constipation. GENITOURINARY: Denies difficulty urinating, painful urination, burning, frequency, blood in urine, or discharge. MUSCULOSKELETAL: Denies back or neck pain or stiffness. Denies joint pain or swelling. SKIN: Denies rash. HEMATOLOGIC : Denies easy bruising or bleeding. LYMPHATIC: Denies swollen, enlarged glands. NEUROLOGICAL: Denies confusion or altered mental status. Denies passing out or loss of consciousness. Denies dizziness or lightheadedness. Denies headache. Denies weakness or paralysis or loss of use of either side. Denies problems with gait or speech. Denies sensory loss, numbness, or tingling. Denies seizures. PSYCHIATRIC: Denies anxiety or stress. Denies depression, suicidal ideation, or homicidal ideation. ALL OTHER SYSTEMS REVIEWED AND NEGATIVE. Dictation was performed using [employer] voice recognition software Physical Exam - Notes Notes: PHYSICAL EXAMINATION: GENERAL: Well-appearing, well-nourished and in no acute distress. Somnolent. HEAD: Atraumatic, normocephalic. EYES: Pupils equal round and reactive to light, extraocular movements intact, sclera anicteric, conjunctiva are normal. ENT: Nares patent, oropharynx clear without exudates. Moist mucous membranes. NECK: Normal range of motion, supple without lymphadenopathy LUNGS: Coarse breath sounds bilaterally with scant expiratory wheeze. HEART: Regular rate and rhythm without murmurs ABDOMEN: Soft, nontender, nondistended abdomen. No guarding, no rebound. No masses appreciated. Musculoskeletal: Normal range of motion. No cyanosis. 2+ bilateral lower extremity edema. No appreciable cord. NEUROLOGICAL: Cranial nerves grossly intact. Normal sensory, motor exams. No unilateral deficits. PSYCH: Normal mood, normal affect. Somnolent, easily arousable. SKIN: Warm, Dry, normal turgor, no rashes noted. Patient has a abrasion right lower extremity. No evidence for infection or foreign body or deeper laceration. Course - Re-evaluation Re-evalutation: 02/21/17 02:17 Patient was given IV Solu-Medrol. Discussion was undertaken with the police, and they agreed to take the patient to the custodial once medically cleared. 02/21/17 03:24 Sodium was 110, which makes patient unstable to go to custodial directly. Patient will be involuntarily committed given that he must be stabilized prior to going to custodial and involuntary commitment order will allow the stabilization to take place. Discussion was undertaken at length with the patient related to his medical problems and prognosis, and the patient agreed to be a DO NOT RESUSCITATE. Nursing staff was available and witnessed this discussion. Discussion was undertaken with Dr. Brown who agreed to admit patient for further evaluation and management care. Rehydration with normal saline at 2 50 cc an hour was undertaken to correct patient's hyponatremia. Note that the patient does have a history of CHF, but is not in CHF currently. DuoNeb ordered given. 02/21/17 04:23 Mild rhabdo identified. 02/21/17 04:24 02/21/17 04:25 - Laboratory Result Diagrams: 02/21/17 02:15 02/21/17 02:15 Laboratory results interpreted by me: 02/21/17 02/21/17 02/21/17 02:15 02:15 02:15 RBC 3.22 L Hgb 9.4 L Hct 28.6 L RDW 17.6 H Lymphocytes % 8.7 L Monocytes % 14.7 H Sodium 110.7 L* Chloride 80 L BUN 5 L Creatinine 0.41 L Calcium 7.3 L AST 60 H Creatine Kinase CK-MB (CK-2) 17.40 H Total Protein 5.4 L Albumin 2.9 L 02/21/17 02:15 RBC Hgb Hct RDW Lymphocytes % Monocytes % Sodium Chloride BUN Creatinine Calcium AST Creatine Kinase 471 H CK-MB (CK-2) Total Protein Albumin - Diagnostic Test Radiology reviewed: Image reviewed, Reports reviewed Critical Care Note - Critical Care Note Total time excluding time spent on procedures (mins): 37 Discharge - Discharge Clinical Impression: Tobacco abuse, Hyponatremia, Alcohol abuse, Medically noncompliant, DNR (do not resuscitate) Chest pain Qualifiers: Chest pain type: other chest pain Qualified Code(s): R07.89 - Other chest pain COPD (chronic obstructive pulmonary disease) Qualifiers: COPD type: unspecified COPD Qualified Code(s): J44.9 - Chronic obstructive pulmonary disease, unspecified Rhabdomyolysis Qualifiers: Rhabdomyolysis type: non-traumatic Qualified Code(s): M62.82 - Rhabdomyolysis Condition: Stable Disposition: ADMITTED INPATIENT Unit Admitted: Telemetry
[2017-02-21 02:40] LABS: ABSOLUTE LYMPHOCYTES (AUTO) 0.7 10^3/uL (0.5-4.7); ABSOLUTE MONOCYTES (AUTO) 1.3 10^3/uL (0.1-1.4); ABSOLUTE NEUT (AUTO) 6.5 10^3/uL (1.7-8.2); BASOPHILS % (AUTO) 0.3 % (0-2); EOSINOPHILS % (AUTO) 0.1 % (0-6); HEMATOCRIT 28.6 % (37.9-51.0); HEMOGLOBIN 9.4 g/dL (13.5-17.0); HGB HCT DIFFERENCE -0.4; LYMPHOCYTES % (AUTO) 8.7 % (13-45); MEAN CORPUSCULAR HEMOGLOBIN 29.1 pg (27.0-33.4); MEAN CORPUSCULAR HGB CONC 32.8 g/dL (32.0-36.0); MEAN CORPUSCULAR VOLUME 89 fl (80-97); MONOCYTES % (AUTO) 14.7 % (3-13); RED BLOOD COUNT 3.22 10^6/uL (4.35-5.55); RED CELL DISTRIBUTION WIDTH 17.6 % (11.5-14.0); SEGMENTED NEUTROPHILS % (AUTO) 76.2 % (42-78); WHITE BLOOD COUNT 8.5 10^3/uL (4.0-10.5)
--- NOTE | 2017-02-21 02:42 | RADIOLOGY REPORT (SQ) ---
EXAM DESCRIPTION: CHEST SINGLE VIEW COMPLETED DATE/TIME: 02/21/2017 2:24 am REASON FOR STUDY: dyspnea COMPARISON: 02/08/2017. EXAM PARAMETERS: NUMBER OF VIEWS: One view. TECHNIQUE: Single frontal radiographic view of the chest acquired. RADIATION DOSE: NA LIMITATIONS: None. FINDINGS: LUNGS AND PLEURA: Mild interstitial markings. MEDIASTINUM AND HILAR STRUCTURES: No masses. Contour normal. HEART AND VASCULAR STRUCTURES: Heart normal in size. Normal vasculature. BONES: Deformity of left lower posterolateral ribs. HARDWARE: None in the chest. OTHER: No other significant finding. IMPRESSION: Stable. TECHNICAL DOCUMENTATION: JOB ID: [id number]
[2017-02-21 02:43] LABS: ALANINE AMINOTRANSFERASE 46 U/L (21-72); ALBUMIN 2.9 g/dL (3.5-5.0); ALKALINE PHOSPHATASE 77 U/L (38-126); ANION GAP 8 (5-19); ASPARTATE AMINO TRANSFERASE 60 U/L (17-59); BILIRUBIN,DIRECT 0.3 mg/dL (0.0-0.4); BILIRUBIN,TOTAL 0.3 mg/dL (0.2-1.3); BLOOD UREA NITROGEN 5 mg/dL (7-20); CALCIUM 7.3 mg/dL (8.4-10.2); CARBON DIOXIDE 23 mmol/L (22-30); CHLORIDE 80 mmol/L (98-107); CREATININE RESULT 0.41 mg/dL (0.52-1.25); GLUCOSE 75 mg/dL (75-110); MAGNESIUM 1.7 mg/dL (1.6-2.3); POTASSIUM 4.7 mmol/L (3.6-5.0); TOTAL PROTEIN 5.4 g/dL (6.3-8.2)
[2017-02-21 02:47] LABS: SODIUM 110.7 mmol/L (137-145)
[2017-02-21] MEDS ORDERED: NORMAL SALINE 1000 ML 1,000 ML IV ONE (02:54)
[2017-02-21 02:55] LABS: TROPONIN I < 0.012 ng/mL
[2017-02-21] MEDS ORDERED: ACETAMINOPHEN 325 MG TABLET PO PRN (03:15)
[2017-02-21 03:42] LABS: MAGNESIUM 1.7 mg/dL (1.6-2.3)
[2017-02-21] MEDS ORDERED: IPRATROPIUM/ALBUTEROL 0.5-2.5 MG/3 ML AMPUL NEB ONE (04:25)
--- NOTE | 2017-02-21 06:55 | PDOC H&P ---
History of Present Illness Admission Date/PCP: 02/21/17 03:15 Patient complains of: Chest pain History of Present Illness: LEIF NUÑEZ is a 61 year old male with an extensive past medical history of severe alcoholism, hyponatremia, COPD, gait disorder, tobacco and noncompliance. He presented to the emergency room with chest pain however left AGAINST MEDICAL ADVICE only to return [facility] [employer] approximately 1 hour later after being arrested for public intoxication and outstanding warrants. Sodium is found to be 110 from baseline of approximately 120 and complicated by severe alcoholism consuming approximately 24-36 beers per day. The patient denies seizure, nausea or vomiting or chest pain currently. He is referred to the hospitalist for admission. Past Medical History Cardiac Medical History: Reports: Coronary Artery Disease, Myocardial Infarction - [place] occured in 2002. Takes ASA now, used to be on hypertensive medications, Hyperlipidema, Hypertension Pulmonary Medical History: Reports: Asthma, Bronchitis, Chronic Obstructive Pulmonary Disease (COPD), Pneumonia Musculoskeltal Medical History: Reports: Arthritis Psychiatric Medical History: Reports: Depression Past Surgical History Past Surgical History: Reports: Cardiac Catheterization Social History Information Source: Patient, Emergency Med Personnel, [facility] Records Lives with: Family Smoking Status: Current Every Day Smoker Frequency of Alcohol Use: Heavy Amount of Alcoholic Beverages Per Day: 24 to 36 beers per day Hx Recreational Drug Use: No Drugs: None Hx Prescription Drug Abuse: No - Advance Directive Resuscitation Status: Do Not Resuscitate Family History Family History: Reviewed & Not Pertinent, Arthritis, CAD, COPD Parental Family History Reviewed: Yes Children Family History Reviewed: Yes Sibling(s) Family History Reviewed.: Yes Medication/Allergy Home Medications: Albuterol Sulfate [Ventolin 0.083% Neb 2.5 mg/3 mL Ampul] 3 ml NEB Q8HP PRN Albuterol Sulfate [Ventolin HFA MDI 18 GM] 2 puff IH Q4HP PRN 02/07/17 Alprazolam [Xanax 0.5 mg Tablet] 0.5 mg PO QHS 02/07/17 Budesonide/Formoterol Fumarate [Symbicort HFA 160-4.5 mcg Inhaler 6 gm] 2 puff IH DAILY 02/07/17 Levothyroxine Sodium [Synthroid 0.075 mg Tablet] 0.075 mg PO DAILY 02/07/17 Lisinopril [Prinivil] 20 mg PO DAILY 02/07/17 Tiotropium [place] [Spiriva Respimat] 2 puff IH DAILY 02/07/17 Clopidogrel Bisulfate [Clopidogrel] 75 mg PO DAILY 02/11/17 Rosuvastatin Calcium 20 mg PO DAILY 02/11/17 Cyanocobalamin/Folic Acid [Vitamin B-12 & Folic Acid Tablet] 1 each PO DAILY # 30 tablet 02/12/17 Ferrous Sulfate [Feosol 325 mg Tablet] 325 mg PO DAILY #30 tablet 02/12/17 Thiamine HCl [Thiamine 100 mg Tablet] 100 mg PO DAILY #30 tablet 02/12/17 Allergies/Adverse Reactions: No Known Allergies Allergy (Verified 12/25/16 04:45) Review of Systems Constitutional: PRESENT: anorexia, fatigue, weakness, weight loss Eyes: ABSENT: visual disturbances Ears: ABSENT: hearing changes Cardiovascular: ABSENT: chest pain, dyspnea on exertion, edema, orthropnea, palpitations Respiratory: PRESENT: cough Gastrointestinal: ABSENT: abdominal pain, constipation, diarrhea, hematemesis, hematochezia, nausea, vomiting Genitourinary: ABSENT: dysuria, hematuria Musculoskeletal: PRESENT: muscle weakness Integumentary: PRESENT: wounds, other - Skin tears and ecchymosis scattered of all 4 extremities Neurological: PRESENT: abnormal gait, frequent falls, lack of coordination, paresthesias, weakness. ABSENT: confusion, convulsions, dizziness Psychiatric: PRESENT: anxiety, depression Endocrine: ABSENT: cold intolerance, heat intolerance, polydipsia, polyuria Hematologic/Lymphatic: PRESENT: easy bleeding Physical Exam Vital Signs: Temp Pulse Resp BP Pulse Ox 13 141/78 H 100 02/21/17 05:01 02/21/17 05:01 02/21/17 05:01 General appearance: PRESENT: cooperative, disheveled, mild distress, thin Head exam: PRESENT: atraumatic, normocephalic Eye exam: PRESENT: conjunctiva pink, EOMI, PERRLA. ABSENT: scleral icterus Ear exam: PRESENT: normal external ear exam Mouth exam: PRESENT: moist, tongue midline Teeth exam: PRESENT: dental caries Neck exam: ABSENT: carotid bruit, JVD, lymphadenopathy, thyromegaly Respiratory exam: PRESENT: accessory muscle use, prolonged expiratory phas, symmetrical, tachypnea Cardiovascular exam: PRESENT: RRR. ABSENT: diastolic murmur, rubs, systolic murmur Pulses: PRESENT: normal dorsalis pedis pul Vascular exam: PRESENT: normal capillary refill GI/Abdominal exam: PRESENT: normal bowel sounds, soft. ABSENT: distended, guarding, mass, organolmegaly, rebound, tenderness Rectal exam: PRESENT: deferred Extremities exam: PRESENT: full ROM, +1 edema, other - Skin tears and ecchymosis of various stages of all 4 extremities. ABSENT: calf tenderness, clubbing, pedal edema Neurological exam: PRESENT: alert, awake, oriented to person, oriented to place , oriented to situation, CN II-XII grossly intact Psychiatric exam: PRESENT: anxious, depressed Skin exam: PRESENT: other - Skin tears and ecchymosis of various stages of healing of all 4 extremities Results Impressions: Chest X-Ray 02/21/17 01:53 IMPRESSION: Stable. Assessment & Plan - Diagnosis (1) Hyponatremia Is this a current diagnosis for this admission?: YesPlan: Secondary to excessive fluid intake by history, fluid restriction initiated reevaluation of chemistry every 6 hours to avoid overcorrection. (2) COPD (chronic obstructive pulmonary disease) Qualifiers: COPD type: unspecified COPD Qualified Code(s): J44.9 - Chronic obstructive pulmonary disease, unspecified Is this a current diagnosis for this admission?: YesPlan: Albuterol, Atrovent, incentive spirometry consider flutter valve (3) DNR (do not resuscitate) Is this a current diagnosis for this admission?: Yes - Time Time Spent: 30 to 50 Minutes - Inpatient Certification Medical Necessity: Need Close Monitoring Due to Risk of Patient Decompensation
[2017-02-21] MEDS: HEPARIN SOD (PORCINE) 5,000 UNIT/ML 1 ML SYRINGE SUBCUT SCH ×3 (07:01→21:13)
[2017-02-21] MEDS ORDERED: DIAZEPAM 5 MG TABLET PO ONE (07:45)
[2017-02-21] MEDS: IPRATROPIUM/ALBUTEROL 0.5-2.5 MG/3 ML AMPUL NEB SCH ×3 (08:06→20:49)
[2017-02-21 08:08] LABS: BLOOD UREA NITROGEN 3 mg/dL (7-20); CALCIUM 7.9 mg/dL (8.4-10.2); CARBON DIOXIDE 25 mmol/L (22-30); CHLORIDE 86 mmol/L (98-107); CREATININE RESULT 0.44 mg/dL (0.52-1.25); GLUCOSE 79 mg/dL (75-110)
[2017-02-21] MEDS: LORAZEPAM INJ 2 MG/1 ML VIAL IV PRN ×2 (08:09→21:13)
[2017-02-21 08:14] LABS: ANION GAP 10 (5-19)
[2017-02-21 08:26] LABS: TROPONIN I < 0.012 ng/mL
[2017-02-21] MEDS ORDERED: DEXTROSE 5%-WATER 1000 ML 1,000 ML IV PRN (08:27)
[2017-02-21] MEDS ORDERED: DESMOPRESSIN ACETATE INJ 4 MCG/1 ML AMPULE IV ONE ×3 (09:30→18:00)
[2017-02-21] MEDS ORDERED: LEVOTHYROXINE SODIUM 0.075 MG TABLET PO SCH (10:00)
[2017-02-21] MEDS ORDERED: [UNRECOGNIZED DRUG - OTHER] PO SCH (10:00)
[2017-02-21] MEDS ORDERED: CYANOCOBALAMIN PO SCH (10:00)
[2017-02-21] MEDS ORDERED: FOLIC ACID PO SCH (10:00)
[2017-02-21] MEDS: CYANOCOBALAMIN (VITAMIN B-12) 1,000 MCG TABLET PO SCH (10:22)
[2017-02-21] MEDS: FOLIC ACID 1 MG TABLET PO SCH (10:23)
[2017-02-21] MEDS: FERROUS SULFATE 325 MG TABLET PO SCH (10:23)
[2017-02-21] MEDS: LISINOPRIL 10 MG TABLET PO SCH (10:23)
[2017-02-21] MEDS: CLOPIDOGREL BISULFATE 75 MG TABLET PO SCH (10:24)
[2017-02-21] MEDS: THIAMINE HCL 100 MG TABLET PO SCH (10:24)
[2017-02-21] MEDS: MAGNESIUM OXIDE 400 MG TABLET PO SCH ×3 (10:25→17:22)
--- NOTE | 2017-02-21 10:28 | RADIOLOGY REPORT (SQ) ---
EXAM DESCRIPTION: FOOT LEFT COMPLETE COMPLETED DATE/TIME: 02/21/2017 10:12 am REASON FOR STUDY: glass in foot COMPARISON: 02/17/2014 NUMBER OF VIEWS: Three views. TECHNIQUE: AP, lateral and oblique radiographic images acquired of the left foot. LIMITATIONS: None. FINDINGS: MINERALIZATION: Normal. BONES: There appears to be a transverse nondisplaced fracture at the base of 5th proximal phalanx. T his is seen on the oblique view JOINTS: No effusions. SOFT TISSUES: No radiopaque foreign body is seen. OTHER: No other significant finding. IMPRESSION: Nondisplaced fracture of the base of the 5th proximal phalanx with no foreign body ident ified. TECHNICAL DOCUMENTATION: JOB ID: [id number] [employer]- All Rights Reserved
--- NOTE | 2017-02-21 10:29 | RADIOLOGY REPORT (SQ) ---
EXAM DESCRIPTION: FOOT RIGHT COMPLETE COMPLETED DATE/TIME: 02/21/2017 10:12 am REASON FOR STUDY: glass in foot COMPARISON: None. NUMBER OF VIEWS: Three views. TECHNIQUE: AP, lateral and oblique radiographic images acquired of the right foot. LIMITATIONS: None. FINDINGS: MINERALIZATION: Normal. BONES: No acute fracture or dislocation. No worrisome bone lesions. JOINTS: No effusions. SOFT TISSUES: No soft tissue swelling. No foreign body. OTHER: No other significant finding. IMPRESSION: NEGATIVE STUDY OF THE RIGHT FOOT. NO RADIOGRAPHIC EVIDENCE OF ACUTE INJURY. TECHNICAL DOCUMENTATION: JOB ID: [id number] [employer]- All Rights Reserved
[2017-02-21] MEDS: SILVER SULFADIAZINE 1% CREAM 25 GM TP SCH (10:32)
[2017-02-21] MEDS: BUDESONIDE/FORMOTEROL 160-4.5 MCG 60 PUFF/6 GM MDI IH SCH (10:32)
[2017-02-21] MEDS: DIAZEPAM 5 MG TABLET PO SCH ×2 (11:38→17:22)
[2017-02-21 12:18] LABS: ANION GAP 5 (5-19); BLOOD UREA NITROGEN 3 mg/dL (7-20); CALCIUM 7.5 mg/dL (8.4-10.2); CARBON DIOXIDE 27 mmol/L (22-30); CHLORIDE 89 mmol/L (98-107); CREATININE RESULT 0.46 mg/dL (0.52-1.25); GLUCOSE 91 mg/dL (75-110); POTASSIUM 4.8 mmol/L (3.6-5.0)
[2017-02-21 15:00] LABS: BLOOD UREA NITROGEN 5 mg/dL (7-20); CALCIUM 7.7 mg/dL (8.4-10.2); CHLORIDE 88 mmol/L (98-107); CREATININE RESULT 0.47 mg/dL (0.52-1.25); GLUCOSE 164 mg/dL (75-110); POTASSIUM 5.2 mmol/L (3.6-5.0)
[2017-02-21 15:12] LABS: ANION GAP 6 (5-19); CARBON DIOXIDE 26 mmol/L (22-30)
[2017-02-21 15:14] LABS: CREATINE KINASE MB 9.14 ng/mL (<4.55)
[2017-02-21 15:19] LABS: SODIUM 120.1 mmol/L (137-145); TROPONIN I < 0.012 ng/mL
[2017-02-21] MEDS ORDERED: DIPH/PERTUSS(ACELL)/TETANUS VAC/PF 0.5 ML SYR (>=10YO) IM ONE (18:00)
--- NOTE | 2017-02-21 18:55 | PDOC PROGRESS REPORT ---
Subjective Progress Note for:: 02/21/17 Subjective:: Patient is awake and asking for breakfast. Unable to obtain review of systems from patient secondary to intoxication. Physical Exam Vital Signs: Temp Pulse Resp BP Pulse Ox 100.0 F 109 H 19 96/47 L 90 L 02/21/17 15:28 02/21/17 15:28 02/21/17 15:28 02/21/17 15:28 02/21/17 15:28 Intake & Output 02/20/17 02/21/17 02/22/17 06:59 06:59 06:59 Intake Total 2200 Output Total 600 Balance 1600 Weight 56.3 kg Exam: General: Lethargic, but oriented, no acute respiratory distress HEENT:Atraumatic, normocephalic, pupils equal round and reactive to light, oropharynx moist, pink, no scleral icterus, no conjunctival injection Neck: + JVD clavicle, trachea midline Chest: occasional Rhonchi bilaterally CV: Regular rate and rhythm, normal S1 and S2, no murmur, rub, gallop Abdomen: soft, nontender to palpation, nondistended, active bowel sounds; no rebound, rigidity, or guarding Extremities: No cyanosis, clubbing; 3+edema; multiple abrasions and small laceration on 5th phalanx Neuro: Cranial nerves II through XII are grossly intact without focal deficits Psych: Normal mood and affect Results Laboratory Results: 02/21/17 14:17 02/21/17 02/21/17 02/21/17 07:38 11:15 14:17 Sodium 121.0 L 120.7 L* 120.1 L* Potassium 5.0 4.8 5.2 H Chloride 86 L 89 L 88 L Carbon Dioxide 25 27 26 Anion Gap 10 5 6 BUN 3 L 3 L 5 L Creatinine 0.44 L 0.46 L 0.47 L Est GFR ( Amer) > 60 > 60 > 60 Est GFR (Non-Af Amer) > 60 > 60 > 60 Glucose 79 91 164 H Calcium 7.9 L 7.5 L 7.7 L 02/21/17 02/21/17 02/21/17 07:38 07:38 14:17 Creatine Kinase 384 H 226 H CK-MB (CK-2) 15.80 H Troponin I < 0.012 02/21/17 14:17 Creatine Kinase CK-MB (CK-2) 9.14 H Troponin I < 0.012 Impressions: Foot X-Ray 02/21/17 00:00 IMPRESSION: NEGATIVE STUDY OF THE RIGHT FOOT. NO RADIOGRAPHIC EVIDENCE OF ACUTE INJURY. Chest X-Ray 02/21/17 01:53 IMPRESSION: Stable. Assessment & Plan - Diagnosis (1) Hyponatremia Is this a current diagnosis for this admission?: YesPlan: Patient has essentially asymptomatic hyponatremia secondary to volume overload secondary to beer potomania. Will place patient on fluid restriction and continue a BMP every 4 hours. Patient had quite a rapid rise in his sodium which has been treated with D5 and DDAVP. Continue to monitor closely. (2) Alcohol abuse Is this a current diagnosis for this admission?: YesPlan: currently legally intoxicated (3) Alcohol withdrawal Qualifiers: Complication of substance-induced condition: with delirium Qualified Code(s): F10.231 - Alcohol dependence with withdrawal delirium Is this a current diagnosis for this admission?: YesPlan: Thiamine, folic acid, scheduled valium, and prn ativan patient ivc for protection with concommitant sodium issues (4) COPD (chronic obstructive pulmonary disease) Qualifiers: COPD type: unspecified COPD Qualified Code(s): J44.9 - Chronic obstructive pulmonary disease, unspecified Is this a current diagnosis for this admission?: YesPlan: prn bronchodilators (5) Tobacco abuse Is this a current diagnosis for this admission?: YesPlan: Nicotine patch (6) Coronary atherosclerosis Qualifiers: Coronary Disease-Associated Artery/Lesion type: unspecified vessel or lesion type [place] vs. transplanted heart: [place] heart Associated angina: angina presence unspecified Qualified Code(s): I25.10 - Atherosclerotic heart disease of [place] coronary artery without angina pectoris Is this a current diagnosis for this admission?: Yes (7) Hypothyroidism Qualifiers: Hypothyroidism type: unspecified Qualified Code(s): E03.9 - Hypothyroidism, unspecified Is this a current diagnosis for this admission?: YesPlan: Synthroid (8) Protein-calorie malnutrition, moderate Is this a current diagnosis for this admission?: Yes (9) Phalanx fracture, foot Qualifiers: Toe: lesser toe Fracture type: closed Phalanx: proximal Fracture alignment: displaced Laterality: left Is this a current diagnosis for this admission?: YesPlan: Richi tape toe Patient reports having stepped on glass, and x-rays were performed and were negative. Local wound dressings. Patient has been given Tdap. (10) DNR (do not resuscitate) Is this a current diagnosis for this admission?: Yes
[2017-02-21] MEDS ORDERED: NICOTINE 21 MG/24 HR PATCH.TD24 TD ONE (19:00)
[2017-02-21 19:20] LABS: BLOOD UREA NITROGEN 7 mg/dL (7-20); CALCIUM 7.8 mg/dL (8.4-10.2); CREATININE RESULT 0.52 mg/dL (0.52-1.25); GLUCOSE 134 mg/dL (75-110)
[2017-02-21 19:35] LABS: ANION GAP 4 (5-19); CARBON DIOXIDE 29 mmol/L (22-30); CHLORIDE 85 mmol/L (98-107); POTASSIUM 4.8 mmol/L (3.6-5.0)
[2017-02-21 19:37] LABS: SODIUM 117.6 mmol/L (137-145)
[2017-02-21 20:43] LABS: BLOOD UREA NITROGEN 9 mg/dL (7-20); CALCIUM 7.5 mg/dL (8.4-10.2); CREATININE RESULT 0.57 mg/dL (0.52-1.25); GLUCOSE 120 mg/dL (75-110)
[2017-02-21 20:55] LABS: CREATINE KINASE MB 5.59 ng/mL (<4.55)
[2017-02-21 20:56] LABS: TROPONIN I < 0.012 ng/mL
[2017-02-21 21:06] LABS: ANION GAP 1 (5-19); POTASSIUM 4.8 mmol/L (3.6-5.0)
[2017-02-21 21:07] LABS: CARBON DIOXIDE 30 mmol/L (22-30); CHLORIDE 86 mmol/L (98-107)
[2017-02-21 21:08] LABS: SODIUM 117.3 mmol/L (137-145)
[2017-02-21 23:51] LABS: BLOOD UREA NITROGEN 9 mg/dL (7-20); CALCIUM 7.1 mg/dL (8.4-10.2); CHLORIDE 84 mmol/L (98-107); CREATININE RESULT 0.56 mg/dL (0.52-1.25); GLUCOSE 114 mg/dL (75-110); POTASSIUM 4.4 mmol/L (3.6-5.0)
[2017-02-21 23:59] LABS: CARBON DIOXIDE 30 mmol/L (22-30)
[2017-02-22 00:05] LABS: ANION GAP 4 (5-19)
[2017-02-22 00:06] LABS: SODIUM 118.2 mmol/L (137-145)
[2017-02-22] MEDS: DIAZEPAM 5 MG TABLET PO SCH ×5 (00:29→23:08)
[2017-02-22] MEDS: IPRATROPIUM/ALBUTEROL 0.5-2.5 MG/3 ML AMPUL NEB SCH ×4 (02:47→20:04)
[2017-02-22 04:35] LABS: BLOOD UREA NITROGEN 9 mg/dL (7-20); CALCIUM 7.4 mg/dL (8.4-10.2); CREATININE RESULT 0.44 mg/dL (0.52-1.25); GLUCOSE 88 mg/dL (75-110); POTASSIUM 4.5 mmol/L (3.6-5.0)
[2017-02-22 04:37] LABS: ABSOLUTE BASOPHILS # (AUTO) 0.1 10^3/uL (0.0-0.2); ABSOLUTE MONOCYTES (AUTO) 1.5 10^3/uL (0.1-1.4); ABSOLUTE NEUT (AUTO) 6.3 10^3/uL (1.7-8.2); BASOPHILS % (AUTO) 1.1 % (0-2); EOSINOPHILS % (AUTO) 0.3 % (0-6); HEMATOCRIT 25.8 % (37.9-51.0); HEMOGLOBIN 8.6 g/dL (13.5-17.0); LYMPHOCYTES % (AUTO) 11.6 % (13-45); MEAN CORPUSCULAR HEMOGLOBIN 29.6 pg (27.0-33.4); MEAN CORPUSCULAR HGB CONC 33.5 g/dL (32.0-36.0); MEAN CORPUSCULAR VOLUME 88 fl (80-97); MONOCYTES % (AUTO) 16.6 % (3-13); RED BLOOD COUNT 2.93 10^6/uL (4.35-5.55); RED CELL DISTRIBUTION WIDTH 17.9 % (11.5-14.0); SEGMENTED NEUTROPHILS % (AUTO) 70.4 % (42-78)
[2017-02-22 04:44] LABS: CARBON DIOXIDE 29 mmol/L (22-30); CHLORIDE 85 mmol/L (98-107)
[2017-02-22 04:47] LABS: ANION GAP 1 (5-19)
[2017-02-22 04:48] LABS: SODIUM 115.1 mmol/L (137-145)
[2017-02-22] MEDS: LEVOTHYROXINE SODIUM 0.075 MG TABLET PO SCH (06:17)
[2017-02-22] MEDS: HEPARIN SOD (PORCINE) 5,000 UNIT/ML 1 ML SYRINGE SUBCUT SCH ×3 (06:17→22:19)
[2017-02-22] MEDS ORDERED: FUROSEMIDE INJ/PF 20 MG/2 ML SDV IV ONE (08:00)
[2017-02-22 08:01] LABS: BLOOD UREA NITROGEN 7 mg/dL (7-20); CALCIUM 7.4 mg/dL (8.4-10.2); CARBON DIOXIDE 29 mmol/L (22-30); CREATININE RESULT 0.44 mg/dL (0.52-1.25); GLUCOSE 82 mg/dL (75-110); POTASSIUM 4.4 mmol/L (3.6-5.0)
[2017-02-22 08:16] LABS: CHLORIDE 84 mmol/L (98-107)
[2017-02-22 08:17] LABS: ANION GAP 2 (5-19)
[2017-02-22 08:19] LABS: SODIUM 115.1 mmol/L (137-145)
[2017-02-22] MEDS: MAGNESIUM OXIDE 400 MG TABLET PO SCH ×3 (08:29→16:20)
[2017-02-22 09:58] LABS: SODIUM 120.7 mmol/L (137-145)
[2017-02-22] MEDS: LISINOPRIL 10 MG TABLET PO SCH (10:13)
[2017-02-22] MEDS: FOLIC ACID 1 MG TABLET PO SCH (10:13)
[2017-02-22] MEDS: FERROUS SULFATE 325 MG TABLET PO SCH (10:13)
[2017-02-22] MEDS: LORAZEPAM INJ 2 MG/1 ML VIAL IV PRN (10:13)
[2017-02-22] MEDS: CYANOCOBALAMIN (VITAMIN B-12) 1,000 MCG TABLET PO SCH (10:13)
[2017-02-22] MEDS: NICOTINE 21 MG/24 HR PATCH.TD24 TD SCH (10:13)
[2017-02-22] MEDS: CLOPIDOGREL BISULFATE 75 MG TABLET PO SCH (10:14)
[2017-02-22] MEDS: BUDESONIDE/FORMOTEROL 160-4.5 MCG 60 PUFF/6 GM MDI IH SCH (10:14)
[2017-02-22] MEDS: THIAMINE HCL 100 MG TABLET PO SCH (10:14)
[2017-02-22] MEDS: SILVER SULFADIAZINE 1% CREAM 25 GM TP SCH (10:17)
[2017-02-22 12:57] LABS: BLOOD UREA NITROGEN 6 mg/dL (7-20); CALCIUM 7.5 mg/dL (8.4-10.2); CARBON DIOXIDE 32 mmol/L (22-30); CHLORIDE 80 mmol/L (98-107); CREATININE RESULT 0.47 mg/dL (0.52-1.25); GLUCOSE 79 mg/dL (75-110); POTASSIUM 4.5 mmol/L (3.6-5.0)
[2017-02-22 13:17] LABS: ANION GAP 4 (5-19)
[2017-02-22 13:19] LABS: SODIUM 115.9 mmol/L (137-145)
[2017-02-22] MEDS ORDERED: FUROSEMIDE INJ/PF 40 MG/4 ML SDV IV ONE (14:29)
--- NOTE | 2017-02-22 14:35 | PDOC PROGRESS REPORT ---
Subjective Progress Note for:: 02/22/17 Subjective:: Patient is awake asking to leave. Denied cp, soa, abdominal pain, fever, chills, nausea, vomiting. Physical Exam Vital Signs: Temp Pulse Resp BP Pulse Ox 98.8 F 81 16 119/55 L 100 02/22/17 03:49 02/22/17 03:49 02/22/17 03:49 02/22/17 03:49 02/22/17 03:49 Intake & Output 02/21/17 02/22/17 02/23/17 06:59 06:59 06:59 Intake Total 3975 Output Total 1800 Balance 2175 Weight 54.6 kg Exam: General: Awake, alert, oriented x2, no acute respiratory distress HEENT:Atraumatic, normocephalic, pupils equal round and reactive to light, oropharynx moist, pink, no scleral icterus, no conjunctival injection Neck: + JVD clavicle, trachea midline Chest: diminished bases, rare rhonchi CV: Regular rate and rhythm, normal S1 and S2, no murmur, rub, gallop Abdomen: soft, nontender to palpation, nondistended, active bowel sounds; no rebound, rigidity, or guarding Extremities: No cyanosis, clubbing; 3+edema; multiple abrasions and small laceration on 5th phalanx left foot Neuro: Cranial nerves II through XII are grossly intact without focal deficits Psych: Normal mood and affect Results Laboratory Results: 02/22/17 04:00 02/22/17 04:00 02/21/17 02/21/17 02/21/17 07:38 11:15 14:17 WBC RBC Hgb Hct MCV MCH MCHC RDW Plt Count Seg Neutrophils % Lymphocytes % Monocytes % Eosinophils % Basophils % Absolute Neutrophils Absolute Lymphocytes Absolute Monocytes Absolute Eosinophils Absolute Basophils Sodium 121.0 L 120.7 L* 120.1 L* Potassium 5.0 4.8 5.2 H Chloride 86 L 89 L 88 L Carbon Dioxide 25 27 26 Anion Gap 10 5 6 BUN 3 L 3 L 5 L Creatinine 0.44 L 0.46 L 0.47 L Est GFR ( Amer) > 60 > 60 > 60 Est GFR (Non-Af Amer) > 60 > 60 > 60 Glucose 79 91 164 H Calcium 7.9 L 7.5 L 7.7 L 02/21/17 02/21/17 02/21/17 18:51 20:12 23:30 WBC RBC Hgb Hct MCV MCH MCHC RDW Plt Count Seg Neutrophils % Lymphocytes % Monocytes % Eosinophils % Basophils % Absolute Neutrophils Absolute Lymphocytes Absolute Monocytes Absolute Eosinophils Absolute Basophils Sodium 117.6 L* 117.3 L* 118.2 L* Potassium 4.8 4.8 4.4 Chloride 85 L 86 L 84 L Carbon Dioxide 29 30 30 Anion Gap 4 L 1 L 4 L BUN 7 9 9 Creatinine 0.52 0.57 0.56 Est GFR ( Amer) > 60 > 60 > 60 Est GFR (Non-Af Amer) > 60 > 60 > 60 Glucose 134 H 120 H 114 H Calcium 7.8 L 7.5 L 7.1 L 02/22/17 02/22/17 04:00 04:00 WBC 9.0 RBC 2.93 L Hgb 8.6 L Hct 25.8 L MCV 88 MCH 29.6 MCHC 33.5 RDW 17.9 H Plt Count 296 Seg Neutrophils % 70.4 Lymphocytes % 11.6 L Monocytes % 16.6 H Eosinophils % 0.3 Basophils % 1.1 Absolute Neutrophils 6.3 Absolute Lymphocytes 1.0 Absolute Monocytes 1.5 H Absolute Eosinophils 0.0 Absolute Basophils 0.1 Sodium 115.1 L* Potassium 4.5 Chloride 85 L Carbon Dioxide 29 Anion Gap 1 L BUN 9 Creatinine 0.44 L Est GFR ( Amer) > 60 Est GFR (Non-Af Amer) > 60 Glucose 88 Calcium 7.4 L 02/21/17 02/21/17 02/21/17 07:38 07:38 14:17 Creatine Kinase 384 H 226 H CK-MB (CK-2) 15.80 H Troponin I < 0.012 02/21/17 02/21/17 02/21/17 14:17 20:12 20:12 Creatine Kinase 163 CK-MB (CK-2) 9.14 H 5.59 H Troponin I < 0.012 < 0.012 Impressions: Foot X-Ray 02/21/17 00:00 IMPRESSION: NEGATIVE STUDY OF THE RIGHT FOOT. NO RADIOGRAPHIC EVIDENCE OF ACUTE INJURY. Chest X-Ray 02/21/17 01:53 IMPRESSION: Stable. Assessment & Plan - Diagnosis (1) Hyponatremia Is this a current diagnosis for this admission?: YesPlan: Patient has essentially asymptomatic hyponatremia secondary to volume overload secondary to beer potomania. Will place patient on fluid restriction and continue a BMP every 4 hours. Lasix iv bid. Patient had quite a rapid rise in his sodium which has been treated with D5 and DDAVP and appropriate decrease. Continue to monitor closely. (2) Alcohol abuse Is this a current diagnosis for this admission?: YesPlan: currently legally intoxicated (3) Alcohol withdrawal Qualifiers: Complication of substance-induced condition: with delirium Qualified Code(s): F10.231 - Alcohol dependence with withdrawal delirium Is this a current diagnosis for this admission?: YesPlan: Thiamine, folic acid, scheduled valium, and prn ativan patient ivc for protection with concommitant sodium issues (4) COPD (chronic obstructive pulmonary disease) Qualifiers: COPD type: unspecified COPD Qualified Code(s): J44.9 - Chronic obstructive pulmonary disease, unspecified Is this a current diagnosis for this admission?: YesPlan: prn bronchodilators (5) Tobacco abuse Is this a current diagnosis for this admission?: YesPlan: Nicotine patch (6) Coronary atherosclerosis Qualifiers: Coronary Disease-Associated Artery/Lesion type: unspecified vessel or lesion type [place] vs. transplanted heart: [place] heart Associated angina: angina presence unspecified Qualified Code(s): I25.10 - Atherosclerotic heart disease of [place] coronary artery without angina pectoris Is this a current diagnosis for this admission?: Yes (7) Hypothyroidism Qualifiers: Hypothyroidism type: unspecified Qualified Code(s): E03.9 - Hypothyroidism, unspecified Is this a current diagnosis for this admission?: YesPlan: Synthroid (8) Protein-calorie malnutrition, moderate Is this a current diagnosis for this admission?: Yes (9) Phalanx fracture, foot Qualifiers: Toe: lesser toe Fracture type: closed Phalanx: proximal Fracture alignment: displaced Laterality: left Is this a current diagnosis for this admission?: YesPlan: Richi tape toe Patient reports having stepped on glass, and x-rays were performed and were negative. Local wound dressings. Patient has been given Tdap on 02/21/17. (10) DNR (do not resuscitate) Is this a current diagnosis for this admission?: Yes - Time Time Spent with patient: 25-34 minutes Medications reviewed and adjusted accordingly: Yes
[2017-02-22 16:23] LABS: ANION GAP 6 (5-19); BLOOD UREA NITROGEN 7 mg/dL (7-20); CALCIUM 7.6 mg/dL (8.4-10.2); CARBON DIOXIDE 30 mmol/L (22-30); CHLORIDE 81 mmol/L (98-107); CREATININE RESULT 0.54 mg/dL (0.52-1.25); GLUCOSE 75 mg/dL (75-110); POTASSIUM 4.3 mmol/L (3.6-5.0)
[2017-02-22 16:30] LABS: SODIUM 116.9 mmol/L (137-145)
[2017-02-22] MEDS ORDERED: HALOPERIDOL LACTATE INJ 5 MG/1 ML VIAL IV PRN (18:55)
[2017-02-22] MEDS ORDERED: HALOPERIDOL LACTATE INJ 5 MG/1 ML VIAL ONE (19:04)
[2017-02-22] MEDS ORDERED: HALOPERIDOL LACTATE INJ 5 MG/1 ML VIAL IV ONE (19:30)
[2017-02-23] MEDS: IPRATROPIUM/ALBUTEROL 0.5-2.5 MG/3 ML AMPUL NEB SCH ×2 (01:37→08:27)
[2017-02-23] MEDS: LORAZEPAM INJ 2 MG/1 ML VIAL IV PRN (03:43)
[2017-02-23] MEDS: LEVOTHYROXINE SODIUM 0.075 MG TABLET PO SCH (06:30)
[2017-02-23] MEDS: DIAZEPAM 5 MG TABLET PO SCH (06:30)
[2017-02-23] MEDS: HEPARIN SOD (PORCINE) 5,000 UNIT/ML 1 ML SYRINGE SUBCUT SCH (06:30)
[2017-02-23] MEDS: MAGNESIUM OXIDE 400 MG TABLET PO SCH (07:35)
[2017-02-23] MEDS: BUDESONIDE/FORMOTEROL 160-4.5 MCG 60 PUFF/6 GM MDI IH SCH (07:35)
[2017-02-23 09:00] VITALS: BP 97/56
[2017-02-23 09:33] LABS: ANION GAP 6 (5-19); BLOOD UREA NITROGEN 7 mg/dL (7-20); CALCIUM 8.1 mg/dL (8.4-10.2); CARBON DIOXIDE 31 mmol/L (22-30); CHLORIDE 86 mmol/L (98-107); CREATININE RESULT 0.47 mg/dL (0.52-1.25); GLUCOSE 90 mg/dL (75-110); POTASSIUM 4.2 mmol/L (3.6-5.0)
[2017-02-23] MEDS: FOLIC ACID 1 MG TABLET PO SCH (09:36)
[2017-02-23] MEDS: CLOPIDOGREL BISULFATE 75 MG TABLET PO SCH (09:36)
[2017-02-23] MEDS: FERROUS SULFATE 325 MG TABLET PO SCH (09:37)
[2017-02-23] MEDS: SILVER SULFADIAZINE 1% CREAM 25 GM TP SCH (09:37)
[2017-02-23] MEDS: NICOTINE 21 MG/24 HR PATCH.TD24 TD SCH (09:37)
[2017-02-23] MEDS: CYANOCOBALAMIN (VITAMIN B-12) 1,000 MCG TABLET PO SCH (09:37)
[2017-02-23] MEDS: THIAMINE HCL 100 MG TABLET PO SCH (09:37)
[2017-02-23] MEDS ORDERED: LISINOPRIL 10 MG TABLET PO SCH (10:00)
[2017-02-23] MEDS ORDERED: FUROSEMIDE INJ/PF 20 MG/2 ML SDV IV SCH (10:00)
--- NOTE | 2017-02-23 15:53 | PDOC DISCHARGE SUMMARY ---
General - Admit/Disc Date/PCP Admission Date/Primary Care Provider: 02/21/17 03:15 Discharge Date: 02/23/17 - Discharge Diagnosis (1) Left against medical advice Is this a current diagnosis for this admission?: Yes (2) Hyponatremia Is this a current diagnosis for this admission?: Yes (3) Alcohol abuse Is this a current diagnosis for this admission?: Yes (4) Alcohol withdrawal Is this a current diagnosis for this admission?: Yes (5) COPD (chronic obstructive pulmonary disease) Is this a current diagnosis for this admission?: Yes (6) Tobacco abuse Is this a current diagnosis for this admission?: Yes (7) Coronary atherosclerosis Is this a current diagnosis for this admission?: Yes (8) Hypothyroidism Is this a current diagnosis for this admission?: Yes (9) Protein-calorie malnutrition, moderate Is this a current diagnosis for this admission?: Yes (10) Phalanx fracture, foot Is this a current diagnosis for this admission?: Yes - Additional Information Resuscitation Status: Do Not Resuscitate Home Medications: Albuterol Sulfate [Ventolin HFA MDI 18 GM] 2 puff IH Q4HP PRN 02/07/17 Alprazolam [Xanax 0.5 mg Tablet] 0.5 mg PO QHS 02/07/17 Budesonide/Formoterol Fumarate [Symbicort HFA 160-4.5 mcg Inhaler 6 gm] 2 puff IH Q12 02/07/17 Levothyroxine Sodium [Synthroid 0.075 mg Tablet] 0.075 mg PO DAILY 02/07/17 Lisinopril [Prinivil] 20 mg PO DAILY 02/07/17 Tiotropium [place] [Spiriva Respimat] 2 puff IH DAILY 02/07/17 Clopidogrel Bisulfate [Clopidogrel] 75 mg PO DAILY 02/11/17 Rosuvastatin Calcium 20 mg PO DAILY 02/11/17 Cyanocobalamin/Folic Acid [Vitamin B-12 & Folic Acid Tablet] 1 each PO DAILY # 30 tablet 02/12/17 Ferrous Sulfate [Feosol 325 mg Tablet] 325 mg PO DAILY #30 tablet 02/12/17 Thiamine HCl [Thiamine 100 mg Tablet] 100 mg PO DAILY #30 tablet 02/12/17 Calcium Carbonate/Vitamin D3 [Calcium 500 + Vit D Caplet] 1 tab PO BID 02/21/17 Oxycodone HCl/Acetaminophen [Oxycodon-Acetaminophen 7.5-325] 1 tab PO Q6HP PRN 02/21/17 Albuterol Sulfate [Proair HFA Inhalation Aerosol 8.5 gm MDI] 2 puff IH Q4H PRN # 1 mdi 02/23/17 Prednisone 40 mg PO DAILY #6 tablet 02/23/17 History of Present Illness History of Present Illness: See H&P for full HPI Hospital Course Hospital Course: Found to be hyponatremic with sodium of 110. Patient had a quick correction which was treated with DDAVP and D5. Then as patient suffers from hyponatremia secondary to beer put to amina and volume overload, Lasix was initiated for this patient. Initially due to his profound hyponatremia and confusion as well as alcohol intoxication, patient was IVC'd and this was rescinded today. And was awake alert and oriented 3 and after I saw him elected to leave AGAINST MEDICAL ADVICE despite my admonitions that leaving may result in , locked-in syndrome, or permanent harm to his physical self or psyche. Physical Exam Vital Signs: Temp Pulse Resp BP Pulse Ox 97.7 F 78 17 97/56 L 100 02/23/17 08:33 02/23/17 08:33 02/23/17 08:33 02/23/17 08:33 02/23/17 08:33 Intake & Output 02/22/17 02/23/17 02/24/17 06:59 06:59 06:59 Intake Total 3975 1561 Output Total 1800 4350 Balance 2175 -2789 Weight 54.6 kg 51.3 kg Exam: General: Awake, alert, oriented x3, no acute respiratory distress HEENT:Atraumatic, normocephalic, pupils equal round and reactive to light, oropharynx moist, pink, no scleral icterus, no conjunctival injection Neck: + JVD clavicle, trachea midline Chest: diminished bases, rare rhonchi CV: Regular rate and rhythm, normal S1 and S2, no murmur, rub, gallop Abdomen: soft, nontender to palpation, nondistended, active bowel sounds; no rebound, rigidity, or guarding Extremities: No cyanosis, clubbing; 1+edema; multiple abrasions and small laceration on 5th phalanx left foot Neuro: Cranial nerves II through XII are grossly intact without focal deficits Psych: Normal mood and affect Results Laboratory Results: 02/22/17 04:00 02/23/17 09:04 02/22/17 02/23/17 15:47 09:04 Sodium 116.9 L* 123.0 L Potassium 4.3 4.2 Chloride 81 L 86 L Carbon Dioxide 30 31 H Anion Gap 6 6 BUN 7 7 Creatinine 0.54 0.47 L Est GFR ( Amer) > 60 > 60 Est GFR (Non-Af Amer) > 60 > 60 Glucose 75 90 Calcium 7.6 L 8.1 L 02/21/17 02/21/17 02/21/17 07:38 07:38 14:17 Creatine Kinase 384 H 226 H CK-MB (CK-2) 15.80 H Troponin I < 0.012 02/21/17 02/21/17 02/21/17 14:17 20:12 20:12 Creatine Kinase 163 CK-MB (CK-2) 9.14 H 5.59 H Troponin I < 0.012 < 0.012 Impressions: Foot X-Ray 02/21/17 00:00 IMPRESSION: NEGATIVE STUDY OF THE RIGHT FOOT. NO RADIOGRAPHIC EVIDENCE OF ACUTE INJURY. Chest X-Ray 02/21/17 01:53 IMPRESSION: Stable. Qualifiers PATEINT BEING DISCHARGED WITH ANY OF THE FOLLOWING DIAGNOSIS?: No Plan Time Spent: Less than 30 Minutes
== END 2017-02-23 11:08 | disposition left against medical advice (07) | DRG 641 ==
LOC: ER 01:19 → EH 03:15 → EEVIPCON 03:15 → 3S 06:48
PROVIDERS: ADMIT Internal Medicine; ATTEND Internal Medicine
PROC: 3E0F73Z Introduction of Anti-inflammatory into Respiratory Tract, Via Natural or Artificial Opening (ICD-10-PCS; principal; 2017-02-21)
PROC: 3E0234Z Introduction of Serum, Toxoid and Vaccine into Muscle, Percutaneous Approach (ICD-10-PCS; 2017-02-21)
DX: E87.1 Hypo-osmolality and hyponatremia (principal); F10.239 Alcohol dependence with withdrawal, unspecified; E44.0 Moderate protein-calorie malnutrition; Z68.1 Body mass index [BMI] 19.9 or less, adult; Y90.7 Blood alcohol level of 200-239 mg/100 ml; F10.229 Alcohol dependence with intoxication, unspecified; J44.9 Chronic obstructive pulmonary disease, unspecified; E03.9 Hypothyroidism, unspecified; I25.10 Atherosclerotic heart disease of native coronary artery without angina pectoris; S92.512A Displaced fracture of proximal phalanx of left lesser toe(s), initial encounter for closed fracture; W22.09XA Striking against other stationary object, initial encounter; I10 Essential (primary) hypertension; E78.5 Hyperlipidemia, unspecified; M19.90 Unspecified osteoarthritis, unspecified site; F32.9 Major depressive disorder, single episode, unspecified; F17.210 Nicotine dependence, cigarettes, uncomplicated; F41.9 Anxiety disorder, unspecified; F60.3 Borderline personality disorder; I25.2 Old myocardial infarction; Z91.14 Patient's other noncompliance with medication regimen; Z78.1 Physical restraint status; Z23 Encounter for immunization; Z66 Do not resuscitate; Z79.899 Other long term (current) drug therapy; Z82.61 Family history of arthritis; Z82.49 Family history of ischemic heart disease and other diseases of the circulatory system; Z83.6 Family history of other diseases of the respiratory system
CPT/HCPCS: 36415; 71010; 80048; 80053; 80307; 82550; 82553; 83735; 83880; 84100; 84484; 85025; 90715; 93005; 93010; 96374; 99284; 99285; 99291; J1630; J1644; J1940; J2060; J2597; J2930; J3490; J7030; J7060; J7620

== ENCOUNTER 2017-02-23 15:36 | Emergency (ER) | payer MEDICARE, MEDICAID ==
--- NOTE | 2017-02-23 15:40 | ER Document Report ---
ED Respiratory Problem - General Stated Complaint: DIFFICULTY BREATHING Time Seen by Provider: 02/23/17 15:39 Notes: Mr. Michaels is a 61-year-old male who is well-known to the emergency department. Patient was brought from home for having difficulty breathing and initial oxygen saturation was 70%. Patient was given steroids and DuoNeb. Patient was recently admitted to the hospital and was placed under involuntary commitment paperwork at the time because he was intoxicated. Patient's sodium was low. No evidence for pneumonia. Patient was being treated for COPD exacerbation. Patient IVC paperwork was rescinded and the patient left AMA immediately after. Patient does not wish to stay at this time. His oxygenation is back to his baseline currently he is afebrile. He is able to ambulate. He is not intoxicated and he is adamant that he is not staying currently. TRAVEL OUTSIDE OF THE [place] IN LAST 30 DAYS: No - HPI Patient complains to provider of: COPD, Short of breath Short of Breath: Moderate Cough: Nonproductive EMS treatments: Bronchodilators, Solumedrol Associated symptoms: None Similar symptoms previously: Yes Recently seen / treated by doctor: Yes - Related Data Allergies/Adverse Reactions: No Known Allergies Allergy (Verified 12/25/16 04:45) Past Medical History - General Information source: Patient - Social History Smoking Status: Current Every Day Smoker Frequency of alcohol use: Heavy Family History: Reviewed & Not Pertinent, Arthritis, CAD, COPD - Past Medical History Cardiac Medical History: Reports: Hx Coronary Artery Disease, Hx Heart Attack - [place] occured in 2002. Takes ASA now, used to be on hypertensive medications, Hx Hypercholesterolemia, Hx Hypertension Pulmonary Medical History: Reports: Hx Asthma, Hx Bronchitis, Hx COPD, Hx Pneumonia Musculoskeltal Medical History: Reports Hx Arthritis, Reports Hx Musculoskeletal Deformity, Reports Hx Musculoskeletal Trauma Psychiatric Medical History: Reports: Hx Borderline Personality Disorder, Hx Depression Traumatic Medical History: Reports: Hx Fractures - Left rib fractures with pneumothorax requiring chest tube on 05/23/2016 Past Surgical History: Reports: Hx Cardiac Catheterization - Immunizations Immunizations up to date: Yes Hx Diphtheria, Pertussis, Tetanus Vaccination: - unknown Hx Pneumococcal Vaccination: 02/22/13 Review of Systems - Review of Systems Constitutional: No symptoms reported EENT: No symptoms reported Cardiovascular: No symptoms reported Respiratory: See HPI Gastrointestinal: No symptoms reported Genitourinary: No symptoms reported Male Genitourinary: No symptoms reported Musculoskeletal: No symptoms reported Skin: No symptoms reported Hematologic/Lymphatic: No symptoms reported Neurological/Psychological: No symptoms reported Physical Exam - Vital signs Vitals: Resp 20 02/23/17 15:43 Interpretation: Other - Patient refused. Slight tachy for EMS. SpO2 88% - General General appearance: Alert In distress: None - Respiratory Respiratory status: No respiratory distress Chest status: Nontender Breath sounds: Wheezing - slight expiratory b/l - Cardiovascular Rhythm: Regular, Tachycardia - Abdominal Inspection: Normal Tenderness: Nontender - Extremities General upper extremity: Normal inspection, Normal ROM General lower extremity: Normal inspection, Normal ROM - Neurological Neuro grossly intact: Yes - Skin Skin Temperature: Warm Skin Moisture: Dry Skin Color: Normal Course - Re-evaluation Re-evalutation: 02/23/17 Patient is a 61-year-old male with history of COPD who came in by ambulance for wheezing. Patient was given nebulizer treatments and steroids on the way in. Patient does not want vitals. He does not want to stay in the emergency department. Patient is clear compared to his baseline with oxygen saturation currently at 80%. Patient recently signed out of the hospital AMA. Patient was instructed to come back if he feels worse and is been given an albuterol inhaler to go home with. - Vital Signs Vital signs: Temp Pulse Resp BP Pulse Ox 02/23/17 15:43 Discharge - Discharge Clinical Impression: COPD exacerbation Condition: Stable Disposition: AGAINST MEDICAL ADVICE Instructions: Chronic Obstructive Lung Disease ([facility]) Prescriptions: Albuterol Sulfate [Proair HFA Inhalation Aerosol 8.5 gm MDI] 2 puff IH Q4H PRN # 1 mdi PRN Reason: Prednisone 40 mg PO DAILY #6 tablet
[2017-02-23] MEDS ORDERED: ALBUTEROL SULFATE HFA (90 MCG/PUFF) 8 GM MDI (1 MDI/ER DISP) IH ONE (15:41)
== END 2017-02-23 15:55 | disposition left against medical advice (07) ==
LOC: ER 15:36
DX: J44.1 Chronic obstructive pulmonary disease with (acute) exacerbation (principal); R06.02 Shortness of breath; R00.0 Tachycardia, unspecified; F17.200 Nicotine dependence, unspecified, uncomplicated; I25.10 Atherosclerotic heart disease of native coronary artery without angina pectoris; I25.2 Old myocardial infarction; I10 Essential (primary) hypertension; Z87.01 Personal history of pneumonia (recurrent); Z53.20 Procedure and treatment not carried out because of patient's decision for unspecified reasons
CPT/HCPCS: 99284

== ENCOUNTER 2017-02-23 20:26 | Emergency (ER) | payer MEDICARE, MEDICAID ==
[2017-02-23 20:41] VITALS: BP 126/77
--- NOTE | 2017-02-23 22:00 | ER Document Report ---
ED Respiratory Problem - General Chief Complaint: Shortness Of Breath Stated Complaint: BREATHING DIFFICULTY Time Seen by Provider: 02/23/17 20:33 Notes: Patient presents again for difficulty breathing. Was given neb by EMS. Feels better and wants to leave. Does not want to HPI, review of systems, her physical exam at this time. Patient is 92%. Please see note from earlier today. TRAVEL OUTSIDE OF THE [place] IN LAST 30 DAYS: No - HPI Patient complains to provider of: COPD, Short of breath - Related Data Allergies/Adverse Reactions: No Known Allergies Allergy (Verified 12/25/16 04:45) Past Medical History - Social History Smoking Status: Current Every Day Smoker Frequency of alcohol use: Heavy Drug Abuse: None Family History: Reviewed & Not Pertinent, Arthritis, CAD, COPD - Past Medical History Cardiac Medical History: Reports: Hx Coronary Artery Disease, Hx Heart Attack - [place] occured in 2002. Takes ASA now, used to be on hypertensive medications, Hx Hypercholesterolemia, Hx Hypertension Pulmonary Medical History: Reports: Hx Asthma, Hx Bronchitis, Hx COPD, Hx Pneumonia Musculoskeltal Medical History: Reports Hx Arthritis, Reports Hx Musculoskeletal Deformity, Reports Hx Musculoskeletal Trauma Psychiatric Medical History: Reports: Hx Borderline Personality Disorder, Hx Depression Traumatic Medical History: Reports: Hx Fractures - Left rib fractures with pneumothorax requiring chest tube on 05/23/2016 Past Surgical History: Reports: Hx Cardiac Catheterization - Immunizations Immunizations up to date: Yes Hx Diphtheria, Pertussis, Tetanus Vaccination: - unknown Hx Pneumococcal Vaccination: 02/22/13 Review of Systems - Review of Systems -: Yes ROS unobtainable due to patient's medical condition - refused Physical Exam - Vital signs Vitals: Temp Pulse Resp BP Pulse Ox 97.7 F 99 16 126/77 H 93 02/23/17 20:36 02/23/17 20:36 02/23/17 20:36 02/23/17 20:36 02/23/17 20:36 Interpretation: Normal Notes: refused exam - Respiratory Breath sounds: Other Course - Vital Signs Vital signs: Temp Pulse Resp BP Pulse Ox 97.7 F 99 16 126/77 H 93 02/23/17 20:36 02/23/17 20:36 02/23/17 20:36 02/23/17 20:36 02/23/17 20:36 Discharge - Discharge Clinical Impression: COPD exacerbation Condition: Stable Disposition: AGAINST MEDICAL ADVICE
== END 2017-02-23 20:48 | disposition left against medical advice (07) ==
LOC: ER 20:26
DX: J44.1 Chronic obstructive pulmonary disease with (acute) exacerbation (principal); R06.02 Shortness of breath; F17.200 Nicotine dependence, unspecified, uncomplicated; I25.10 Atherosclerotic heart disease of native coronary artery without angina pectoris; I25.2 Old myocardial infarction; I10 Essential (primary) hypertension; Z87.01 Personal history of pneumonia (recurrent); Z53.20 Procedure and treatment not carried out because of patient's decision for unspecified reasons
CPT/HCPCS: 99284

== ENCOUNTER 2017-02-24 11:24 | Emergency (ER) | payer MEDICARE, MEDICAID ==
[2017-02-24 11:54] LABS: ABSOLUTE MONOCYTES (AUTO) 1.1 10^3/uL (0.1-1.4); ABSOLUTE NEUT (AUTO) 4.5 10^3/uL (1.7-8.2); BASOPHILS % (AUTO) 0.3 % (0-2); HEMATOCRIT 26.9 % (37.9-51.0); HEMOGLOBIN 8.9 g/dL (13.5-17.0); HGB HCT DIFFERENCE -0.2; LYMPHOCYTES % (AUTO) 15.7 % (13-45); MEAN CORPUSCULAR HEMOGLOBIN 29.9 pg (27.0-33.4); MEAN CORPUSCULAR HGB CONC 33.2 g/dL (32.0-36.0); MEAN CORPUSCULAR VOLUME 90 fl (80-97); MONOCYTES % (AUTO) 15.9 % (3-13); RED BLOOD COUNT 2.99 10^6/uL (4.35-5.55); RED CELL DISTRIBUTION WIDTH 18.9 % (11.5-14.0); SEGMENTED NEUTROPHILS % (AUTO) 68.1 % (42-78); WHITE BLOOD COUNT 6.7 10^3/uL (4.0-10.5)
[2017-02-24 12:12] LABS: ALANINE AMINOTRANSFERASE 42 U/L (21-72); ALBUMIN 3.5 g/dL (3.5-5.0); ALKALINE PHOSPHATASE 77 U/L (38-126); ANION GAP 6 (5-19); ASPARTATE AMINO TRANSFERASE 41 U/L (17-59); BILIRUBIN,DIRECT 0.3 mg/dL (0.0-0.4); BILIRUBIN,TOTAL 0.5 mg/dL (0.2-1.3); BLOOD UREA NITROGEN 5 mg/dL (7-20); CALCIUM 8.5 mg/dL (8.4-10.2); CARBON DIOXIDE 31 mmol/L (22-30); CHLORIDE 84 mmol/L (98-107); CREATINE KINASE 95 U/L (55-170); CREATININE RESULT 0.44 mg/dL (0.52-1.25); GLUCOSE 93 mg/dL (75-110); POTASSIUM 3.9 mmol/L (3.6-5.0); SODIUM 121.4 mmol/L (137-145); TOTAL PROTEIN 6.3 g/dL (6.3-8.2)
[2017-02-24 12:23] LABS: CREATINE KINASE MB 4.93 ng/mL (<4.55); TROPONIN I < 0.012 ng/mL
--- NOTE | 2017-02-24 12:33 | RADIOLOGY REPORT (SQ) ---
EXAM DESCRIPTION: CHEST SINGLE VIEW COMPLETED DATE/TIME: 02/24/2017 12:24 pm REASON FOR STUDY: sob COMPARISON: 02/21/2017 EXAM PARAMETERS: NUMBER OF VIEWS: One view. TECHNIQUE: Single frontal radiographic view of the chest acquired. RADIATION DOSE: NA LIMITATIONS: None. FINDINGS: LUNGS AND PLEURA: Stable chronic lung change without new opacities, masses or pneumothorax . No pleural effusion. MEDIASTINUM AND HILAR STRUCTURES: No masses. Contour normal. HEART AND VASCULAR STRUCTURES: Heart normal in size. Normal vasculature. BONES: No acute findings. Stable multiple subacute/chronic rib fractures. HARDWARE: None in the chest. OTHER: No other significant finding. IMPRESSION: NO ACUTE CARDIOPULMONARY PROCESS. NO SIGNIFICANT CHANGE FROM PRIOR STUDY. TECHNICAL DOCUMENTATION: JOB ID: [id number]
[2017-02-24 12:35] LABS: VENOUS BLOOD BASE EXCESS 4.4 mmol/L; VENOUS BLOOD HCO3 29.5 mmol/L (20-32); VENOUS BLOOD PCO2 46.5 mmHg (35-63); VENOUS BLOOD PH 7.42 (7.30-7.42)
[2017-02-24 12:45] VITALS: BP 131/77
--- NOTE | 2017-02-24 16:13 | ER Document Report ---
ED General - General Chief Complaint: Breathing Difficulty Stated Complaint: RESPIRATORY DISTRESS Time Seen by Provider: 02/24/17 12:17 TRAVEL OUTSIDE OF THE [place] IN LAST 30 DAYS: No - HPI Patient complains to provider of: Difficulty in breathing chest pain Notes: Patient coming in for evaluation of chest pain shortness of breath. Patient is very well-known to the ER patient had a history of coming in by EMS and immediately signing out AGAINST MEDICAL ADVICE or looking. Patient on day complaining of chest pain. Upon my evaluation patient is alert will answer some simple questions however avoids answering most. Patient states chest pain went to most of his chest wall patient also states the having shortness of breath patient was given a breathing treatment by EMS prior to arrival. Patient was found hypoxic by EMS on room air saturation of 72%. Patient currently on nasal cannula. - Related Data Allergies/Adverse Reactions: No Known Allergies Allergy (Verified 12/25/16 04:45) Past Medical History - Social History Smoking Status: Current Every Day Smoker Chew tobacco use (# tins/day): No Frequency of alcohol use: Heavy Drug Abuse: None Family History: Reviewed & Not Pertinent, Arthritis, CAD, COPD Patient has suicidal ideation: No Patient has homicidal ideation: No - Past Medical History Cardiac Medical History: Reports: Hx Coronary Artery Disease, Hx Heart Attack - [place] occured in 2002. Takes ASA now, used to be on hypertensive medications, Hx Hypercholesterolemia, Hx Hypertension Pulmonary Medical History: Reports: Hx Asthma, Hx Bronchitis, Hx COPD, Hx Pneumonia Renal/ Medical History: Denies: Hx Peritoneal Dialysis Musculoskeltal Medical History: Reports Hx Arthritis, Reports Hx Musculoskeletal Deformity, Reports Hx Musculoskeletal Trauma Psychiatric Medical History: Reports: Hx Borderline Personality Disorder, Hx Depression Traumatic Medical History: Reports: Hx Fractures - Left rib fractures with pneumothorax requiring chest tube on 05/23/2016 Past Surgical History: Reports: Hx Cardiac Catheterization - Immunizations Immunizations up to date: Yes Hx Diphtheria, Pertussis, Tetanus Vaccination: - unknown Hx Pneumococcal Vaccination: 02/22/13 Review of Systems - Review of Systems Constitutional: No symptoms reported EENT: No symptoms reported Cardiovascular: Chest pain Respiratory: Short of breath Gastrointestinal: No symptoms reported Genitourinary: No symptoms reported Male Genitourinary: No symptoms reported Musculoskeletal: No symptoms reported Skin: No symptoms reported Hematologic/Lymphatic: No symptoms reported Neurological/Psychological: No symptoms reported Physical Exam - Vital signs Vitals: Resp 20 06/11/17 11:41 Interpretation: Normal - General General appearance: Appears well, Alert - HEENT Head: Normocephalic, Atraumatic Eyes: Normal Pupils: PERRL - Respiratory Respiratory status: No respiratory distress Chest status: Nontender Breath sounds: Normal Chest palpation: Normal - Cardiovascular Rhythm: Regular Heart sounds: Normal auscultation Murmur: No - Abdominal Inspection: Normal Distension: No distension Bowel sounds: Normal Tenderness: Nontender Organomegaly: No organomegaly - Back Back: Normal, Nontender - Extremities General upper extremity: Normal inspection, Nontender, Normal color, Normal ROM , Normal temperature General lower extremity: Normal inspection, Nontender, Normal color, Normal ROM , Normal temperature, Normal weight bearing. No: Sylvia's sign - Neurological Neuro grossly intact: Yes Cognition: Normal Orientation: AAOx4 [place] Coma Scale Eye Opening: Spontaneous [place] Coma Scale Verbal: Oriented [place] Coma Scale Motor: Obeys Commands [place] Coma Scale Total: 15 Speech: Normal Motor strength normal: LUE, RUE, LLE, RLE Sensory: Normal - Psychological Associated symptoms: Normal affect, Normal mood - Skin Skin Temperature: Warm Skin Moisture: Dry Skin Color: Normal Course - Re-evaluation Re-evalutation: 02/24/17 16:12 While involved in care of a critical patient was notified by nursing staff that the patient wanted to sign out AGAINST MEDICAL ADVICE. Prior to my attention being diverted from the critical patient patient did sign out and left the ER. Quick review of chest x-ray lab work shows chronic hyponatremia. Also patient has chronic anemia. - Vital Signs Vital signs: Temp Pulse Resp BP Pulse Ox 97.8 F 89 15 131/77 H 100 02/24/17 11:43 02/24/17 11:43 02/24/17 12:01 02/24/17 12:01 02/24/17 11:56 - Laboratory Result Diagrams: 02/24/17 11:40 02/24/17 11:40 Laboratory results interpreted by me: 02/24/17 02/24/17 02/24/17 11:40 11:40 11:40 RBC 2.99 L Hgb 8.9 L Hct 26.9 L RDW 18.9 H Monocytes % 15.9 H Sodium 121.4 L Chloride 84 L Carbon Dioxide 31 H BUN 5 L Creatinine 0.44 L CK-MB (CK-2) 4.93 H Discharge - Discharge Clinical Impression: Tobacco abuse, COPD exacerbation Disposition: AGAINST MEDICAL ADVICE
--- NOTE | 2017-02-25 09:36 | EKG REPORT ---
SEVERITY:- NORMAL ECG - SINUS RHYTHM : Confirmed by: Renee Gill 25-Feb-2017 09:35:49
== END 2017-02-24 12:45 | disposition left against medical advice (07) ==
LOC: ER 11:24
DX: J44.1 Chronic obstructive pulmonary disease with (acute) exacerbation (principal); E87.1 Hypo-osmolality and hyponatremia; D64.9 Anemia, unspecified; R06.02 Shortness of breath; R07.89 Other chest pain; R09.02 Hypoxemia; F17.200 Nicotine dependence, unspecified, uncomplicated; I25.10 Atherosclerotic heart disease of native coronary artery without angina pectoris; I25.2 Old myocardial infarction; I10 Essential (primary) hypertension; Z87.01 Personal history of pneumonia (recurrent); Z53.20 Procedure and treatment not carried out because of patient's decision for unspecified reasons
CPT/HCPCS: 36415; 71010; 80053; 80307; 82550; 82553; 82803; 84484; 85025; 93005; 93010; 99285

== ENCOUNTER 2017-02-25 01:53 | Emergency (ER) | payer MEDICARE, MEDICAID ==
--- NOTE | 2017-02-25 02:31 | ER Document Report ---
ED Cardiac - General Chief Complaint: Chest Pain Stated Complaint: CHEST TIGHTNESS Time Seen by Provider: 02/25/17 02:25 Notes: The patient is a 61-year-old male, past medical history COPD, chronic alcoholism , frequent user of the emergency room, presents with 1 day of diffuse chest pain with pain into the left neck. He was given 324 mg aspirin and 1 nitro prior to arrival. His Accu-Chek was 48 by EMS and he was given 1 amp of dextrose. Patient is saying that he is also having diffuse itching all day today, but does not have a rash. He denies fevers, back pain, numbness, tingling, abdominal pain or cough. TRAVEL OUTSIDE OF THE [place] IN LAST 30 DAYS: No - Related Data Allergies/Adverse Reactions: No Known Allergies Allergy (Verified 12/25/16 04:45) Past Medical History - General Information source: Patient - Social History Smoking Status: Current Every Day Smoker Frequency of alcohol use: Heavy Family History: Reviewed & Not Pertinent, Arthritis, CAD, COPD Patient has suicidal ideation: No Patient has homicidal ideation: No - Past Medical History Cardiac Medical History: Reports: Hx Coronary Artery Disease, Hx Heart Attack - [place] occured in 2002. Takes ASA now, used to be on hypertensive medications, Hx Hypercholesterolemia, Hx Hypertension Pulmonary Medical History: Reports: Hx Asthma, Hx Bronchitis, Hx COPD, Hx Pneumonia Renal/ Medical History: Denies: Hx Peritoneal Dialysis Musculoskeltal Medical History: Reports Hx Arthritis, Reports Hx Musculoskeletal Deformity, Reports Hx Musculoskeletal Trauma Psychiatric Medical History: Reports: Hx Borderline Personality Disorder, Hx Depression Traumatic Medical History: Reports: Hx Fractures - Left rib fractures with pneumothorax requiring chest tube on 05/23/2016 Past Surgical History: Reports: Hx Cardiac Catheterization - Immunizations Immunizations up to date: Yes Hx Diphtheria, Pertussis, Tetanus Vaccination: - unknown Hx Pneumococcal Vaccination: 02/22/13 Review of Systems - Review of Systems Notes: REVIEW OF SYSTEMS: CONSTITUTIONAL: -fevers, -chills EENT: -eye pain, -difficulty swallowing, -nasal congestion CARDIOVASCULAR: +chest pain, -syncope. RESPIRATORY: +cough, -SOB GASTROINTESTINAL: -abdominal pain, - nausea, -vomiting, -diarrhea GENITOURINARY: -dysuria, -hematuria MUSCULOSKELETAL: -back pain, -neck pain SKIN: -rash or skin lesions. HEMATOLOGIC: -easy bruising or bleeding. LYMPHATIC: -swollen, enlarged glands. NEUROLOGICAL: -altered mental status or loss of consciousness, -headache, - neurologic symptoms PSYCHIATRIC: -anxiety, -depression. ALL OTHER SYSTEMS REVIEWED AND NEGATIVE. Physical Exam - Vital signs Vitals: Pulse Ox 94 02/25/17 01:59 - Notes Notes: PHYSICAL EXAMINATION: GENERAL: Well-appearing, well-nourished and in no acute distress. HEAD: Atraumatic, normocephalic. EYES: Pupils equal round and reactive to light, extraocular movements intact, sclera anicteric, conjunctiva are normal. ENT: nares patent, oropharynx clear without exudates. Moist mucous membranes. NECK: Normal range of motion, supple without lymphadenopathy LUNGS: Breath sounds clear to auscultation bilaterally and equal. No wheezes rales or rhonchi. HEART: Regular rate and rhythm without murmurs ABDOMEN: Soft, nontender, normoactive bowel sounds. No guarding, no rebound. No masses appreciated. EXTREMITIES: Normal range of motion, no pitting or edema. No cyanosis. NEUROLOGICAL: Cranial nerves grossly intact. Normal speech, normal gait. Normal sensory and motor exams. PSYCH: Normal mood, normal affect. SKIN: Warm, Dry, normal turgor, no rashes or lesions noted. Course - Re-evaluation Re-evalutation: EKG and troponin does not show any evidence of ACS. Chest x-ray does not show pneumonia and patient symptoms are atypical for PE or aortic dissection at this time. Sodium level is at baseline for him. Will have patient follow with his primary care physician tomorrow. - Vital Signs Vital signs: Temp Pulse Resp BP Pulse Ox 97.0 F 77 21 H 126/71 H 96 02/25/17 02:40 02/25/17 02:22 02/25/17 02:40 02/25/17 02:40 02/25/17 02:40 - Laboratory Result Diagrams: 02/25/17 02:44 02/25/17 02:44 Laboratory results interpreted by me: 02/25/17 02/25/17 02:44 02:44 RBC 2.95 L Hgb 8.8 L Hct 26.8 L RDW 19.2 H Lymphocytes % 11.9 L Monocytes % 14.1 H Sodium 124.3 L Chloride 87 L Creatinine 0.47 L Calcium 8.3 L Total Protein 6.1 L Albumin 3.4 L - Diagnostic Test Radiology reviewed: Image reviewed, Reports reviewed Radiology results interpreted by me: CXR: NAD - EKG Interpretation by Me EKG shows normal: Sinus rhythm, [place], Intervals, QRS Complexes, ST-T Waves Rate: Normal When compared to previous EKG there are: No significant change Discharge - Discharge Clinical Impression: Chest pain Qualifiers: Chest pain type: other chest pain Qualified Code(s): R07.89 - Other chest pain Condition: Stable Disposition: HOME, SELF-CARE Additional Instructions: CHEST PAIN OF UNCLEAR CAUSE: The exact cause of your chest pain isn't clear. Fortunately, there is no evidence of a dangerous medical condition. Further testing may be required to find the source of the pain. Most often, we find that this pain is coming from the chest wall -- the muscles or rib joints in the chest. But chest pain can come from the lung and lung lining, the esophagus, the heart valves or heart lining, and even the stomach or gallbladder. Rest. Eat lightly until the pain is gone. We may prescribe medicine for pain and inflammation. You should call the physician immediately if the pain radiates to the shoulder, jaw or arms; if you start to run a fever or develop a cough; or if you develop shortness of breath, or other new or alarming symptoms. NORMAL EXAM AND WORKUP: At this time, your examination and workup show no significant abnormality. No significant abnormal physical findings were noted. All laboratory, EKG, and imaging (x-ray, CT scans, ultrasound) studies that were ordered show no significant abnormality. Although your examination and all studies that were ordered showed no significant abnormal finding, there are no examinations and no studies that are 100% accurate. There is always the possibility that some abnormality could exist and not be detected with physical examination or within the limits and capabilities of laboratory and other studies. You should return or follow up as you were instructed on your visit today for further evaluation if your symptoms do not resolve. CHEST WALL PAIN: Your chest pain may be coming from the chest wall. This is often caused by straining the muscles or joints in the chest during physical activity, direct trauma, coughing, or vigorous vomiting. Persons with arthritis are especially prone to this type of pain, due to inflammation of the cartilage joints near the breast bone. Occasionally, no cause can be found. Rest from strenuous physical activity. This kind of chest pain is usually made worse by movement of the chest. Depending on the symptoms, we may prescribe medicine for pain, muscle relaxation, and antiinflammatory effects. If the pain is new, and seems to be due to muscle strain, cold packs can help. Otherwise, apply gentle warmth to the painful area for 15 minutes every hour or two. You should call contact the doctor immediately if things change. Further evaluation is needed if you develop a fever or cough, if the nature of the pain changes, or if you become short of breath. ANGINA EPISODE: Your physician has diagnosed the pain you experienced as an episode of angina. Angina occurs when a portion of the heart muscle temporarily lacks oxygen. It does not cause any permanent heart damage, but serves as a warning. Hospitalization is not necessary now. Evaluation of your cardiac condition , and medical therapy for angina will be necessary. It's important you be sure to keep all appointments and take medication exactly as prescribed. Angina is usually treated with a type of "nitrate" medication. This is available as ointment, pills, or sublingual (under the tongue) tablets. Depending on your clinical situation, other medications may be added to help control angina. These may include beta blockers or calcium blockers. If episodes of angina are occurring with increased frequency, or if chest pain lasts longer than 15 minutes or does not respond to nitroglycerin, you must seek emergency medical care immediately. ACID REFLUX DISEASE (GERD): Gastro-Esophageal Reflux Disease (GERD) is caused by stomach acid refluxing back up into the esophagus. The valve at the end of the esophagus may be weak. This is common in persons with a hiatal hernia. GERD symptoms can include indigestion, chest pain, heartburn, or food "sticking." Certain foods, alcohol, and aspirin can make GERD worse. Treatment depends on the severity. Usually, antacids or acid-suppressing medicines are used. When the esophagus is acutely inflamed, the physician will often prescribe membrane-protective drugs such as Carafate. Some patients benefit from medication such as Reglan that tightens the valve at the top of the stomach. Avoid those foods that bring on your symptoms. For many people, these foods are coffee, chocolate, onions, garlic, and carbonated drinks. Don't use alcohol, aspirin, caffeine, or tobacco. Don't eat late at night -- within 4 hours of bedtime. Don't over-eat. If necessary, elevate the head of your bed about 4 inches so that stomach acid will not roll up into your esophagus. Call the doctor if you develop severe chest pain, inability to swallow fluids, fever, or worsening symptoms. ASPIRIN: Aspirin has been shown to have a beneficial effect on blood circulation by reducing the clotting effect of platelets in the blood. These beneficial effects can be achieved by taking just a single baby (81 mg) aspirin a day. It is recommended that any person over the age of forty take a single baby aspirin every day for heart and brain circulation, unless you are allergic to aspirin or have some significant bleeding disorder. It is strongly recommended that people who have proven cardiac or blood circulation disturbances should take a baby aspirin every day. NITRATES: Nitroglycerin and related longer-acting nitrate medications are used to prevent or treat attacks of angina. These medicines dilate blood vessels, decreasing the work of the heart, and improving its supply of oxygen. Many different forms are available, including sublingual tablets (used under the tongue), sprays, skin patches, and long-acting pills. If the particular form of medication you have been given is not working well for you, contact your doctor. Long-acting forms: Take exactly as prescribed. Sudden stopping of medication can provoke increased attacks. Sublingual tabs or spray: A headache will usually occur with use. Sit or lie while waiting for the pain to go away. If angina doesn't respond to three doses (five minutes apart), call for emergency assistance. ANTACID THERAPY: You have been instructed to start antacid therapy. Antacids directly neutralize stomach acid. This is useful for acid irritation of the esophagus, gastritis, and ulcers. You should take two tablespoons of antacid one hour after each meal and three hours after each meal. If you are not eating, take the antacid every two hours. If you are using a concentrate (such as Maalox TC), use only one tablespoon. Many antacids affect the bowels. The most common problem is diarrhea. In this case, a pure aluminum hydroxide antacid (such as AlternaGel) can be substituted for some or all doses. If the problem is constipation, add a teaspoon of Milk of Magnesia to each dose. Call the doctor if you experience continued diarrhea or constipation, or if you develop lightheadedness, bloody stool or vomitus, severe abdominal pain, or black stool. PRILOSEC (ACID PUMP INHIBITOR): Prilosec (omeprazole) is an acid-pump inhibitor. It blocks the secretion of hydrogen ions in the acid-producing cells of the stomach. Prilosec keeps your stomach from making acid. Take all medication as prescribed, even after the pain is gone. Regular antacids may be added as needed if you have symptoms while taking this medicine. There are usually no side effects from this medication. Contact your doctor if there is fever, rash, yellow skin color, increasing abdominal pain, weakness, or unusual bruising. Return at once if you develop lightheadedness, black or bloody stool, or bloody vomitus. ORAL NARCOTIC MEDICATION: You have been given a prescription for pain control. This medication is a narcotic. It's best taken with food, as nausea can result if taken on an empty stomach. Don't operate machinery or drive within six hours of taking this medication. Do not combine this medicine with alcohol, or with any medication which can cause sedation (such as cold tablets or sleeping pills) unless you get permission from the physician. Narcotics tend to cause constipation. If possible, drink plenty of fluids and eat a diet high in fiber and fruits. Please be aware that prescription narcotics also have the potential for abuse. People become addicted to these medications because of the general sense of wellbeing that they induce. This feeling along with a significant reduction in tension, anxiety, and aggression provides a stimulating seductive quality to these drugs. Once your pain is under control, we encourage you to discard your unused narcotics. FOLLOW-UP CARE: If you have been referred to a physician for follow-up care, call the physician s office for an appointment as you were instructed or within the next two days. If you experience worsening or a significant change in your symptoms, notify the physician immediately or return to the Emergency Department at any time for re-evaluation.
[2017-02-25] MEDS ORDERED: HYDROXYZINE PAMOATE 25 MG CAPSULE PO ONE (02:37)
[2017-02-25 02:51] LABS: ABSOLUTE LYMPHOCYTES (AUTO) 0.9 10^3/uL (0.5-4.7); ABSOLUTE NEUT (AUTO) 5.5 10^3/uL (1.7-8.2); BASOPHILS % (AUTO) 0.6 % (0-2); EOSINOPHILS % (AUTO) 0.1 % (0-6); HEMATOCRIT 26.8 % (37.9-51.0); HEMOGLOBIN 8.8 g/dL (13.5-17.0); HGB HCT DIFFERENCE -0.4; LYMPHOCYTES % (AUTO) 11.9 % (13-45); MEAN CORPUSCULAR HEMOGLOBIN 29.8 pg (27.0-33.4); MEAN CORPUSCULAR VOLUME 91 fl (80-97); MONOCYTES % (AUTO) 14.1 % (3-13); RED BLOOD COUNT 2.95 10^6/uL (4.35-5.55); RED CELL DISTRIBUTION WIDTH 19.2 % (11.5-14.0); SEGMENTED NEUTROPHILS % (AUTO) 73.3 % (42-78); WHITE BLOOD COUNT 7.4 10^3/uL (4.0-10.5)
[2017-02-25 03:06] LABS: ALANINE AMINOTRANSFERASE 43 U/L (21-72); ALBUMIN 3.4 g/dL (3.5-5.0); ALKALINE PHOSPHATASE 70 U/L (38-126); ANION GAP 7 (5-19); ASPARTATE AMINO TRANSFERASE 41 U/L (17-59); BILIRUBIN,DIRECT 0.3 mg/dL (0.0-0.4); BILIRUBIN,TOTAL 0.4 mg/dL (0.2-1.3); BLOOD UREA NITROGEN 7 mg/dL (7-20); CALCIUM 8.3 mg/dL (8.4-10.2); CARBON DIOXIDE 30 mmol/L (22-30); CHLORIDE 87 mmol/L (98-107); CREATINE KINASE 71 U/L (55-170); CREATININE RESULT 0.47 mg/dL (0.52-1.25); GLUCOSE 87 mg/dL (75-110); POTASSIUM 3.6 mmol/L (3.6-5.0); SODIUM 124.3 mmol/L (137-145); TOTAL PROTEIN 6.1 g/dL (6.3-8.2)
[2017-02-25 04:24] VITALS: BP 93/58
--- NOTE | 2017-02-25 04:26 | RADIOLOGY REPORT (SQ) ---
EXAM DESCRIPTION: CHEST SINGLE VIEW COMPLETED DATE/TIME: 02/25/2017 4:15 am REASON FOR STUDY: chest pain COMPARISON: 02/24/2017. EXAM PARAMETERS: NUMBER OF VIEWS: One view. TECHNIQUE: Single frontal radiographic view of the chest acquired. RADIATION DOSE: NA LIMITATIONS: None. FINDINGS: LUNGS AND PLEURA: Mild interstitial markings. Chronic. MEDIASTINUM AND HILAR STRUCTURES: No masses. Contour normal. HEART AND VASCULAR STRUCTURES: Heart normal in size. Normal vasculature. BONES: No acute findings. HARDWARE: None in the chest. OTHER: No other significant finding. IMPRESSION: Mild chronic interstitial lung disease pattern. TECHNICAL DOCUMENTATION: JOB ID: [id number]
--- NOTE | 2017-02-25 09:36 | EKG REPORT ---
SEVERITY:- NORMAL ECG - SINUS RHYTHM : Confirmed by: Renee Gill 25-Feb-2017 09:35:45
== END 2017-02-25 04:56 | disposition home or self-care (01) ==
LOC: ER 01:53
DX: R07.89 Other chest pain (principal); J44.9 Chronic obstructive pulmonary disease, unspecified; M54.2 Cervicalgia; L29.9 Pruritus, unspecified; F17.200 Nicotine dependence, unspecified, uncomplicated; I25.10 Atherosclerotic heart disease of native coronary artery without angina pectoris; I25.2 Old myocardial infarction; I10 Essential (primary) hypertension; Z87.01 Personal history of pneumonia (recurrent)
CPT/HCPCS: 93005; 99285; 36415; 82550; 83690; 85025; 80053; 84484; 71010; 93010; A9270

== ENCOUNTER 2017-03-05 20:15 | Emergency (ER) | payer MEDICARE, MEDICAID ==
[2017-03-05] MEDS ORDERED: METHYLPREDNISOLONE INJ 125 MG/2 ML SDV IV ONE (20:46)
[2017-03-05] MEDS ORDERED: IPRATROPIUM/ALBUTEROL 0.5-2.5 MG/3 ML AMPUL NEB ONE (20:49)
[2017-03-05] MEDS ORDERED: ALBUTEROL SULFATE 0.083% NEB 2.5 MG/3 ML AMPUL NEB SCH (21:01)
--- NOTE | 2017-03-05 21:24 | RADIOLOGY REPORT (SQ) ---
EXAM DESCRIPTION: CHEST SINGLE VIEW COMPLETED DATE/TIME: 03/05/2017 9:07 pm REASON FOR STUDY: COPD COMPARISON: 02/25/2017 NUMBER OF VIEWS: One view. TECHNIQUE: Single frontal radiographic image of the chest acquired. LIMITATIONS: None. FINDINGS: LUNGS AND PLEURA: Stable appearance. MEDIASTINUM AND HILAR STRUCTURES: Stable heart size and mediastinal structures. HEART AND VASCULAR STRUCTURES: Stable appearance. BONES: No acute findings. HARDWARE: None in the chest. OTHER: No other significant finding. IMPRESSION: STABLE APPEARANCE OF THE CHEST. TECHNICAL DOCUMENTATION: JOB ID: [id number] [employer]- All Rights Reserved
[2017-03-05] MEDS ORDERED: FUROSEMIDE INJ/PF 40 MG/4 ML SDV IV ONE (23:03)
[2017-03-05] MEDS ORDERED: FUROSEMIDE INJ/PF 40 MG/4 ML SDV ONE (23:06)
--- NOTE | 2017-03-05 23:09 | ER Document Report ---
ED Respiratory Problem - General Chief Complaint: Breathing Difficulty Stated Complaint: DIFFICULTY BREATHING Time Seen by Provider: 03/05/17 20:55 Notes: There is a 61-year-old male, past medical history COPD, chronic drinker, frequent user of the emergency room, presents after he was found sitting in the rain. EMS picked him up and provided him with 1 DuoNeb for some wheezing. Patient is in no respiratory distress. He is complaining of mild fluid in his bilateral legs. Denies chest pain, nausea, vomiting, headache, fevers or cough. TRAVEL OUTSIDE OF THE [place] IN LAST 30 DAYS: No - Related Data Allergies/Adverse Reactions: No Known Allergies Allergy (Verified 12/25/16 04:45) Past Medical History - General Information source: Patient - Social History Smoking Status: Current Every Day Smoker Frequency of alcohol use: Heavy Drug Abuse: None Family History: Reviewed & Not Pertinent, Arthritis, CAD, COPD - Past Medical History Cardiac Medical History: Reports: Hx Coronary Artery Disease, Hx Heart Attack - [place] occured in 2002. Takes ASA now, used to be on hypertensive medications, Hx Hypercholesterolemia, Hx Hypertension Pulmonary Medical History: Reports: Hx Asthma, Hx Bronchitis, Hx COPD, Hx Pneumonia Renal/ Medical History: Denies: Hx Peritoneal Dialysis Musculoskeltal Medical History: Reports Hx Arthritis, Reports Hx Musculoskeletal Deformity, Reports Hx Musculoskeletal Trauma Psychiatric Medical History: Reports: Hx Borderline Personality Disorder, Hx Depression Traumatic Medical History: Reports: Hx Fractures - Left rib fractures with pneumothorax requiring chest tube on 05/23/2016 Past Surgical History: Reports: Hx Cardiac Catheterization - Immunizations Immunizations up to date: Yes Hx Diphtheria, Pertussis, Tetanus Vaccination: - unknown Hx Pneumococcal Vaccination: 02/22/13 Review of Systems - Review of Systems Notes: REVIEW OF SYSTEMS: CONSTITUTIONAL: -fevers, -chills EENT: -eye pain, -difficulty swallowing, -nasal congestion CARDIOVASCULAR: -chest pain, -syncope. RESPIRATORY: -cough, +SOB GASTROINTESTINAL: -abdominal pain, - nausea, -vomiting, -diarrhea GENITOURINARY: -dysuria, -hematuria MUSCULOSKELETAL: -back pain, -neck pain SKIN: -rash or skin lesions. HEMATOLOGIC: -easy bruising or bleeding. LYMPHATIC: -swollen, enlarged glands. NEUROLOGICAL: -altered mental status or loss of consciousness, -headache, - neurologic symptoms PSYCHIATRIC: -anxiety, -depression. ALL OTHER SYSTEMS REVIEWED AND NEGATIVE. Physical Exam - Vital signs Vitals: Pulse Ox 90 L 03/05/17 20:20 - Notes Notes: PHYSICAL EXAMINATION: GENERAL: Unkempt and in no acute distress. HEAD: Atraumatic, normocephalic. EYES: Pupils equal round and reactive to light, extraocular movements intact, sclera anicteric, conjunctiva are normal. ENT: nares patent, oropharynx clear without exudates. Moist mucous membranes. NECK: Normal range of motion, supple without lymphadenopathy LUNGS: Breath sounds clear to auscultation bilaterally and equal. No wheezes rales or rhonchi. HEART: Regular rate and rhythm without murmurs ABDOMEN: Soft, nontender, normoactive bowel sounds. No guarding, no rebound. No masses appreciated. EXTREMITIES: Normal range of motion. 1+ pitting edema B/L. No cyanosis. NEUROLOGICAL: Cranial nerves grossly intact. Normal speech, normal gait. Normal sensory and motor exams. PSYCH: Normal mood, normal affect. SKIN: Warm, Dry, normal turgor, no rashes or lesions noted. Course - Re-evaluation Re-evalutation: Patient's wheezing resolved after DuoNeb and steroids. Chest x-ray does not show any acute findings. Patient was provided with a dose of IV Lasix to help with peripheral edema. Patient is not in any distress. Patient discharged home once he could ambulate with a steady gait. Provided him with a dose of steroids and instructions to use his albuterol. - Vital Signs Vital signs: Temp Pulse Resp BP Pulse Ox 18 120/100 H 90 L 03/05/17 23:31 03/05/17 23:31 03/05/17 23:31 - Diagnostic Test Radiology reviewed: Image reviewed, Reports reviewed Radiology results interpreted by me: CXR: NAD - EKG Interpretation by Me EKG shows normal: Sinus rhythm, [place], Intervals, QRS Complexes, ST-T Waves Rate: Normal Discharge - Discharge Clinical Impression: COPD exacerbation, Peripheral edema Condition: Stable Disposition: HOME, SELF-CARE Additional Instructions: SHORTNESS OF BREATH OR DYSPNEA: You were evaluated for shortness of breath, or dyspnea. Dyspnea has many causes, and some are more serious than others. Sometimes it's impossible to diagnose the cause of dyspnea with the tests that are available on an emergency basis. Based on our evaluation today, you do not need hospitalization now. We found no evidence of pneumonia, collapsed lung, blood clots in the lung, tumors , or heart failure. Causes of non-specific dyspnea can include asthma or bronchospasm, hyperventilation, emotional distress, heart disease, emphysema, fibrosis of the lung, and stiffness of the chest wall. In healthy individuals with a single episode, it's sometimes reasonable to do nothing but wait to see if the problem occurs again. Additional tests used to evaluate dyspnea can include cardiac stress testing, echocardiography, pulmonary function testing, CAT scan of the chest, bronchoscopy or pulmonary biopsy. Return if shortness of breath persists or worsens, or if you develop chest pain, fever, cough, confusion, or fainting. FOLLOW-UP CARE: If you have been referred to a physician for follow-up care, call the physician s office for an appointment as you were instructed or within the next two days. If you experience worsening or a significant change in your symptoms, notify the physician immediately or return to the Emergency Department at any time for re-evaluation. Prescriptions: Prednisone [Deltasone 10 mg Tablet] 10 mg PO ASDIR PRN #21 tablet PRN Reason: Forms: Smoking Cessation Education Referrals: EPHRAIM MADSEN MD [Primary Care Provider] - Follow up as needed
[2017-03-06 05:56] VITALS: BP 144/97
--- NOTE | 2017-03-06 08:40 | EKG REPORT ---
SEVERITY:- ABNORMAL ECG - ATRIAL FIBRILLATION CONSIDER ANTERIOR INFARCT : Confirmed by: Sruthi Rivas MD 06-Mar-2017 08:40:44
== END 2017-03-06 06:36 | disposition home or self-care (01) ==
LOC: ER 20:15
DX: J44.1 Chronic obstructive pulmonary disease with (acute) exacerbation (principal); R60.0 Localized edema; F17.200 Nicotine dependence, unspecified, uncomplicated; I25.10 Atherosclerotic heart disease of native coronary artery without angina pectoris; I25.2 Old myocardial infarction; I10 Essential (primary) hypertension; Z87.01 Personal history of pneumonia (recurrent)
CPT/HCPCS: 93005; 94640 ×2; 99285; 96374; 96375; 71010; 93010; J1940; J2930; A9270 ×2; J7620

== ENCOUNTER 2017-03-07 17:04 | Inpatient (IN) | payer MEDICARE, MEDICAID ==
[2017-03-07] MEDS ORDERED: PREDNISONE 20 MG TABLET PO ONE (18:53)
[2017-03-07] MEDS ORDERED: IPRATROPIUM/ALBUTEROL 0.5-2.5 MG/3 ML AMPUL NEB ONE (19:01)
--- NOTE | 2017-03-07 19:36 | RADIOLOGY REPORT (SQ) ---
EXAM DESCRIPTION: CHEST SINGLE VIEW COMPLETED DATE/TIME: 03/07/2017 7:26 pm REASON FOR STUDY: sob, copd, edema COMPARISON: 03/05/2017 EXAM PARAMETERS: NUMBER OF VIEWS: One view. TECHNIQUE: Single frontal radiographic view of the chest acquired. RADIATION DOSE: NA LIMITATIONS: None. FINDINGS: LUNGS AND PLEURA: No opacities, masses or pneumothorax. No pleural effusion. Chronic appe aring changes are identified. MEDIASTINUM AND HILAR STRUCTURES: No masses. Contour normal. HEART AND VASCULAR STRUCTURES: Heart normal in size. Normal vasculature. BONES: No acute findings. HARDWARE: None in the chest. OTHER: No other significant finding. IMPRESSION: No significant interval change. No acute findings. Other findings as noted above TECHNICAL DOCUMENTATION: JOB ID: [id number]
--- NOTE | 2017-03-07 19:47 | ER Document Report ---
ED General - General Chief Complaint: Shortness Of Breath Stated Complaint: DIFFICULTY BREATHING Time Seen by Provider: 03/07/17 18:15 Mode of Arrival: Medic Information source: Patient Notes: 61-year-old chronic alcoholic COPD who is very well-known to our emergency department for multiple previous visits with similar complaints of wheezing alcohol intoxication after which she leaves AGAINST MEDICAL ADVICE once stabilized presents with complaints of alcohol intoxication wheezing. Patient found satting 89%, denies any fevers or chills requests steroids. Patient has had a couple falls with skin tears but denies any other traumatic injury TRAVEL OUTSIDE OF THE [place] IN LAST 30 DAYS: No - HPI Onset: Just prior to arrival Onset/Duration: Sudden Quality of pain: No pain Severity: Mild Pain Level: Denies Associated symptoms: Nonproductive cough, Shortness of breath, Other Exacerbated by: Denies Relieved by: Denies Similar symptoms previously: Yes Recently seen / treated by doctor: Yes - Related Data Allergies/Adverse Reactions: No Known Allergies Allergy (Verified 03/07/17 17:21) Past Medical History - Social History Smoking Status: Never Smoker Cigarette use (# per day): No Chew tobacco use (# tins/day): No Smoking Education Provided: No Frequency of alcohol use: Heavy Family History: Reviewed & Not Pertinent, Arthritis, CAD, COPD - Past Medical History Cardiac Medical History: Reports: Hx Coronary Artery Disease, Hx Heart Attack - OR occured in 2002. Takes ASA now, used to be on hypertensive medications, Hx Hypercholesterolemia, Hx Hypertension Pulmonary Medical History: Reports: Hx Asthma, Hx Bronchitis, Hx COPD, Hx Pneumonia Renal/ Medical History: Denies: Hx Peritoneal Dialysis Musculoskeltal Medical History: Reports Hx Arthritis, Reports Hx Musculoskeletal Deformity, Reports Hx Musculoskeletal Trauma Psychiatric Medical History: Reports: Hx Borderline Personality Disorder, Hx Depression Traumatic Medical History: Reports: Hx Fractures - Left rib fractures with pneumothorax requiring chest tube on 05/23/2016 Past Surgical History: Reports: Hx Cardiac Catheterization - Immunizations Immunizations up to date: Yes Hx Diphtheria, Pertussis, Tetanus Vaccination: - unknown Hx Pneumococcal Vaccination: 02/22/13 Review of Systems - Review of Systems Notes: REVIEW OF SYSTEMS: CONSTITUTIONAL : Denies fever, chills, or sweats. Denies recent illness. EENT: Denies eye, ear, throat, or mouth pain or symptoms. Denies nasal or sinus congestion or discharge. Denies throat, tongue, or mouth swelling or difficulty swallowing. CARDIOVASCULAR: Denies chest pain. Denies palpitations or racing or irregular heart beat. Denies ankle edema. RESPIRATORY: Admits to shortness of breath GASTROINTESTINAL: Denies abdominal pain or distention. Denies nausea, vomiting , or diarrhea. Denies blood in vomitus, stools, or per rectum. Denies black, tarry stools. Denies constipation. GENITOURINARY: Denies difficulty urinating, painful urination, burning, frequency, blood in urine, or discharge. MUSCULOSKELETAL: Denies back or neck pain or stiffness. Denies joint pain or swelling. SKIN: Denies rash, lesions or sores. HEMATOLOGIC : Denies easy bruising or bleeding. LYMPHATIC: Denies swollen, enlarged glands. NEUROLOGICAL: Denies confusion or altered mental status. Denies passing out or loss of consciousness. Denies dizziness or lightheadedness. Denies headache. Denies weakness or paralysis or loss of use of either side. Denies problems with gait or speech. Denies sensory loss, numbness, or tingling. Denies seizures. PSYCHIATRIC: Denies anxiety or stress. Denies depression, suicidal ideation, or homicidal ideation. ALL OTHER SYSTEMS REVIEWED AND NEGATIVE. Dictation was performed using [employer] voice recognition software PHYSICAL EXAMINATION: GENERAL: ill-appearing HEAD: Atraumatic, normocephalic. EYES: Pupils equal round and reactive to light, extraocular movements intact, sclera anicteric, conjunctiva are normal. ENT: Nares patent, oropharynx clear without exudates. Moist mucous membranes. NECK: Normal range of motion, supple without lymphadenopathy LUNGS: Inspiratory expiratory wheezing noted throughout HEART: Regular rate and rhythm without murmurs ABDOMEN: Soft, nontender, nondistended abdomen. No guarding, no rebound. No masses appreciated. Musculoskeletal: Normal range of motion, no pitting or edema. No cyanosis. NEUROLOGICAL: Altered PSYCH: Normal mood, normal affect. SKIN: Skin tears on the right shoulder right forearm with areas of ecchymosis all throughout Physical Exam - Vital signs Vitals: Temp 98.6 F 03/07/17 17:16 Course - Re-evaluation Re-evalutation: 03/07/17 19:47 Lab work imaging pending, mild edema noted of lower extremities. 03/07/17 20:31 Pt noted to have sodium of 106, will admit to ICU - Vital Signs Vital signs: Temp Pulse Resp BP Pulse Ox 98.6 F 85 9 L 138/72 H 89 L 03/07/17 17:16 03/07/17 17:30 03/07/17 19:01 03/07/17 19:01 03/07/17 19:01 - Laboratory Result Diagrams: 03/07/17 19:30 03/07/17 19:30 Laboratory results interpreted by me: 03/07/17 03/07/17 03/07/17 19:30 19:30 19:30 RBC 3.84 L Hgb 10.8 L Hct 33.7 L RDW 17.6 H Lymphocytes % 9.9 L Monocytes % 15.7 H Sodium 106.1 L* Chloride 68 L Carbon Dioxide 31 H BUN 2 L Creatinine 0.42 L Calcium 7.6 L NT-Pro-B Natriuret Pep 1080 H Total Protein 6.2 L - Diagnostic Test Radiology reviewed: Image reviewed, Reports reviewed Critical Care Note - Critical Care Note Total time excluding time spent on procedures (mins): 44 Comments: minutes of critical care time spent in direct contact evaluating and reevaluating the patient, treating symptoms, reviewing labs and studies and speaking with family and consultants excluding any procedures Discharge - Discharge Clinical Impression: Acute and chronic respiratory failure with hypoxia, Hyponatremia, COPD with acute exacerbation Condition: Serious Disposition: ADMITTED INPATIENT Admitting Provider: Hospitalist Unit Admitted: ICU
[2017-03-07 19:50] LABS: ABSOLUTE LYMPHOCYTES (AUTO) 0.8 10^3/uL (0.5-4.7); ABSOLUTE MONOCYTES (AUTO) 1.3 10^3/uL (0.1-1.4); ABSOLUTE NEUT (AUTO) 6.2 10^3/uL (1.7-8.2); BASOPHILS % (AUTO) 0.3 % (0-2); HEMATOCRIT 33.7 % (37.9-51.0); HEMOGLOBIN 10.8 g/dL (13.5-17.0); HGB HCT DIFFERENCE -1.3; LYMPHOCYTES % (AUTO) 9.9 % (13-45); MEAN CORPUSCULAR HEMOGLOBIN 28.2 pg (27.0-33.4); MEAN CORPUSCULAR HGB CONC 32.1 g/dL (32.0-36.0); MEAN CORPUSCULAR VOLUME 88 fl (80-97); MONOCYTES % (AUTO) 15.7 % (3-13); RED BLOOD COUNT 3.84 10^6/uL (4.35-5.55); RED CELL DISTRIBUTION WIDTH 17.6 % (11.5-14.0); SEGMENTED NEUTROPHILS % (AUTO) 74.1 % (42-78); WHITE BLOOD COUNT 8.4 10^3/uL (4.0-10.5)
[2017-03-07 20:11] LABS: ALANINE AMINOTRANSFERASE 39 U/L (21-72); ALBUMIN 3.7 g/dL (3.5-5.0); ALKALINE PHOSPHATASE 101 U/L (38-126); ANION GAP 7 (5-19); ASPARTATE AMINO TRANSFERASE 42 U/L (17-59); BILIRUBIN,DIRECT 0.3 mg/dL (0.0-0.4); BILIRUBIN,TOTAL 0.5 mg/dL (0.2-1.3); BLOOD UREA NITROGEN 2 mg/dL (7-20); CALCIUM 7.6 mg/dL (8.4-10.2); CARBON DIOXIDE 31 mmol/L (22-30); CHLORIDE 68 mmol/L (98-107); CREATININE RESULT 0.42 mg/dL (0.52-1.25); GLUCOSE 76 mg/dL (75-110); POTASSIUM 4.7 mmol/L (3.6-5.0); TOTAL PROTEIN 6.2 g/dL (6.3-8.2)
[2017-03-07 20:15] LABS: SODIUM 106.1 mmol/L (137-145)
[2017-03-07] MEDS ORDERED: NORMAL SALINE 1000 ML 1,000 ML IV ONE (20:18)
[2017-03-07] MEDS ORDERED: DEXTROSE 50%-WATER 25 GM/50 ML DISP.SYRIN IV ONE (20:30)
[2017-03-07] MEDS ORDERED: FUROSEMIDE INJ/PF 20 MG/2 ML SDV IV ONE (20:31)
[2017-03-07 20:52] LABS: MAGNESIUM 1.9 mg/dL (1.6-2.3); PHOSPHORUS 2.2 mg/dL (2.5-4.5)
[2017-03-07] MEDS ORDERED: THIAMINE HCL INJ 200 MG/2 ML VIAL ONE (20:58)
[2017-03-07] MEDS ORDERED: FOLIC ACID INJ 5 MG/1 ML 10 ML VIAL ONE (20:59)
[2017-03-07] MEDS: THIAMINE HCL 100 MG, FOLIC ACID 1 MG in NORMAL SALINE 50 ML IV SCH (21:15)
[2017-03-07 22:35] LABS: APPEARANCE,URINE CLEAR; BILIRUBIN,URINE NEGATIVE (NEGATIVE); GLUCOSE, URINE NEGATIVE (NEGATIVE); KETONES,URINE NEGATIVE (NEGATIVE); LEUKOCYTE ESTERASE,URINE NEGATIVE (NEGATIVE); NITRITE,URINE NEGATIVE (NEGATIVE); PROTEIN,URINE NEGATIVE (NEGATIVE); URINE SPECIFIC GRAVITY 1.002; UROBILINOGEN,URINE NEGATIVE mg/dL (<2.0)
[2017-03-07 22:35] LABS: URINE BARBITURATES SCREEN NEGATIVE; URINE METHADONE SCREEN NEGATIVE; URINE OPIATES LOW NEGATIVE; URINE PHENCYCLIDINE SCREEN NEGATIVE
[2017-03-07] MEDS ORDERED: SODIUM CHLORIDE 3% 500 ML IV ONE ×2 (23:00→23:30)
[2017-03-07] MEDS ORDERED: POTASSIUM PHOS,M-BASIC-D-BASIC 30 MMOL in NORMAL SALINE 500 ML IV ONE (23:00)
[2017-03-07] MEDS: HEPARIN SOD (PORCINE) 5,000 UNIT/ML 1 ML SYRINGE SUBCUT SCH (23:48)
[2017-03-08] MEDS: IPRATROPIUM/ALBUTEROL 0.5-2.5 MG/3 ML AMPUL NEB SCH ×3 (00:28→16:28)
[2017-03-08 00:31] LABS: ANION GAP 7 (5-19); BLOOD UREA NITROGEN 3 mg/dL (7-20); CALCIUM 7.5 mg/dL (8.4-10.2); CARBON DIOXIDE 33 mmol/L (22-30); CHLORIDE 72 mmol/L (98-107); CREATININE RESULT 0.38 mg/dL (0.52-1.25); GLUCOSE 93 mg/dL (75-110); POTASSIUM 4.2 mmol/L (3.6-5.0)
[2017-03-08 00:47] LABS: SODIUM 111.9 mmol/L (137-145)
[2017-03-08] MEDS: LORAZEPAM INJ 2 MG/1 ML VIAL IV PRN ×2 (06:12→10:50)
[2017-03-08] MEDS: HEPARIN SOD (PORCINE) 5,000 UNIT/ML 1 ML SYRINGE SUBCUT SCH ×3 (06:13→21:02)
--- NOTE | 2017-03-08 06:34 | PDOC H&P ---
History of Present Illness Admission Date/PCP: 03/07/17 20:31 EPHRAIM MADSEN MD Patient complains of: Shortness of breath and altered mental status History of Present Illness: LEIF NUÑEZ is a 61 year old male with an extensive past medical history of severe alcoholism, hyponatremia, COPD, gait disorder, tobacco dependence and noncompliance. He presents to the emergency room approximately every other day with altered mental status alcohol intoxication and COPD exacerbation frequently leaving AGAINST MEDICAL ADVICE. However he is found obtunded with a sodium of 106 he is referred to the hospitalist for admission. Past Medical History Cardiac Medical History: Reports: Coronary Artery Disease, Myocardial Infarction - [place] occured in 2002. Takes ASA now, used to be on hypertensive medications, Hyperlipidema, Hypertension Pulmonary Medical History: Reports: Asthma, Bronchitis, Chronic Obstructive Pulmonary Disease (COPD), Pneumonia Musculoskeltal Medical History: Reports: Arthritis Psychiatric Medical History: Reports: Alcohol Dependency, Depression, Tobacco Dependency Past Surgical History Past Surgical History: Reports: Cardiac Catheterization Social History Information Source: [facility] Records Smoking Status: Current Every Day Smoker Cigarettes Packs Per Day: 1 Frequency of Alcohol Use: Heavy Hx Recreational Drug Use: No Drugs: None Hx Prescription Drug Abuse: No - Advance Directive Resuscitation Status: Full Code Family History Family History: Reviewed & Not Pertinent, Arthritis, CAD, COPD Parental Family History Reviewed: Yes Children Family History Reviewed: Yes Sibling(s) Family History Reviewed.: Yes Medication/Allergy Home Medications: Albuterol Sulfate [Ventolin HFA MDI 18 GM] 2 puff IH Q4HP PRN 02/07/17 Alprazolam [Xanax 0.5 mg Tablet] 0.5 mg PO QHS 02/07/17 Budesonide/Formoterol Fumarate [Symbicort HFA 160-4.5 mcg Inhaler 6 gm] 2 puff IH Q12 02/07/17 Levothyroxine Sodium [Synthroid 0.075 mg Tablet] 0.075 mg PO DAILY 02/07/17 Lisinopril [Prinivil] 20 mg PO DAILY 02/07/17 Tiotropium [place] [Spiriva Respimat] 2 puff IH DAILY 02/07/17 Clopidogrel Bisulfate [Clopidogrel] 75 mg PO DAILY 02/11/17 Rosuvastatin Calcium 20 mg PO DAILY 02/11/17 Cyanocobalamin/Folic Acid [Vitamin B-12 & Folic Acid Tablet] 1 each PO DAILY # 30 tablet 02/12/17 Ferrous Sulfate [Feosol 325 mg Tablet] 325 mg PO DAILY #30 tablet 02/12/17 Thiamine HCl [Thiamine 100 mg Tablet] 100 mg PO DAILY #30 tablet 02/12/17 Calcium Carbonate/Vitamin D3 [Calcium 500 + Vit D Caplet] 1 tab PO BID 02/21/17 Oxycodone HCl/Acetaminophen [Oxycodon-Acetaminophen 7.5-325] 1 tab PO Q6HP PRN 02/21/17 Allergies/Adverse Reactions: No Known Allergies Allergy (Verified 03/07/17 17:21) Review of Systems ROS unobtainable: Due to mental status - Patient is obtunded Physical Exam Vital Signs: Temp Pulse Resp BP Pulse Ox 98.8 F 74 16 120/60 95 03/08/17 05:35 03/08/17 00:30 03/08/17 02:16 03/08/17 02:03 03/08/17 02:16 Intake & Output 03/06/17 03/07/17 03/08/17 11:59 11:59 11:59 Output Total 2475 Balance -2475 Weight 53.6 kg General appearance: PRESENT: disheveled, mild distress, thin Head exam: PRESENT: atraumatic, normocephalic Eye exam: PRESENT: conjunctiva pink, EOMI, PERRLA. ABSENT: scleral icterus Ear exam: PRESENT: normal external ear exam Mouth exam: PRESENT: moist, neck supple, tongue midline Teeth exam: PRESENT: dental caries Neck exam: ABSENT: carotid bruit, JVD, lymphadenopathy, thyromegaly Respiratory exam: PRESENT: accessory muscle use, crackles, decreased breath sounds, prolonged expiratory phas, retraction, symmetrical, tachypnea Cardiovascular exam: PRESENT: RRR. ABSENT: diastolic murmur, rubs, systolic murmur Pulses: PRESENT: normal dorsalis pedis pul Vascular exam: PRESENT: normal capillary refill GI/Abdominal exam: PRESENT: normal bowel sounds, soft. ABSENT: distended, guarding, mass, organolmegaly, rebound, tenderness Rectal exam: PRESENT: deferred Extremities exam: PRESENT: pedal edema, +1 edema, other - Multiple skin tears in all 4 extremities Neurological exam: PRESENT: altered Skin exam: PRESENT: abrasion, dry, erythema. ABSENT: cyanosis, intact - Skin tears throughout Results Laboratory Results: 03/08/17 00:15 03/07/17 03/08/17 22:10 00:15 Sodium 111.9 L* Potassium 4.2 Chloride 72 L Carbon Dioxide 33 H Anion Gap 7 BUN 3 L Creatinine 0.38 L Est GFR ( Amer) > 60 Est GFR (Non-Af Amer) > 60 Glucose 93 Calcium 7.5 L Urine Color COLORLESS Urine Appearance CLEAR Urine pH 7.0 Ur Specific [place] 1.002 Urine Protein NEGATIVE Urine Glucose (UA) NEGATIVE Urine Ketones NEGATIVE Urine Blood NEGATIVE Urine Nitrite NEGATIVE Ur Leukocyte Esterase NEGATIVE Urine WBC (Auto) 1 Impressions: Chest X-Ray 03/07/17 19:02 IMPRESSION: No significant interval change. No acute findings. Other findings as noted above Assessment & Plan - Diagnosis (1) Hyponatremia Is this a current diagnosis for this admission?: YesPlan: Recurrent hyponatremia with hypovolemia secondary to severe alcoholism consuming greater than 24 beers a day. Given his mental status he is placed on 3% saline, follow-up chemistry every 6 hours with a sodium goal 116 March 09 at midnight. (2) Alcohol withdrawal Qualifiers: Complication of substance-induced condition: with delirium Qualified Code(s): F10.231 - Alcohol dependence with withdrawal delirium Is this a current diagnosis for this admission?: YesPlan: Thiamine folate and Ativan. Patient has IVced for altered mental status and critical illness (3) COPD exacerbation Is this a current diagnosis for this admission?: YesPlan: Albuterol Atrovent, flutter valve when able to cooperate, consider increased prednisone (4) DNR (do not resuscitate) Is this a current diagnosis for this admission?: YesPlan: DNR - Time Time Spent: 50 to 70 Minutes - Inpatient Certification Medical Necessity: Need Close Monitoring Due to Risk of Patient Decompensation
[2017-03-08 07:16] LABS: ABSOLUTE LYMPHOCYTES (AUTO) 0.3 10^3/uL (0.5-4.7); ABSOLUTE NEUT (AUTO) 4.3 10^3/uL (1.7-8.2); BASOPHILS % (AUTO) 0.6 % (0-2); HEMOGLOBIN 10.3 g/dL (13.5-17.0); HGB HCT DIFFERENCE -1.1; LYMPHOCYTES % (AUTO) 6.1 % (13-45); MEAN CORPUSCULAR HEMOGLOBIN 28.3 pg (27.0-33.4); MEAN CORPUSCULAR HGB CONC 32.2 g/dL (32.0-36.0); MEAN CORPUSCULAR VOLUME 88 fl (80-97); MONOCYTES % (AUTO) 17.9 % (3-13); RED BLOOD COUNT 3.65 10^6/uL (4.35-5.55); RED CELL DISTRIBUTION WIDTH 17.8 % (11.5-14.0); SEGMENTED NEUTROPHILS % (AUTO) 75.4 % (42-78); WHITE BLOOD COUNT 5.7 10^3/uL (4.0-10.5)
[2017-03-08 07:37] LABS: BLOOD UREA NITROGEN 3 mg/dL (7-20); CALCIUM 7.6 mg/dL (8.4-10.2); CHLORIDE 84 mmol/L (98-107); CREATINE KINASE 62 U/L (55-170); CREATININE RESULT 0.41 mg/dL (0.52-1.25); GLUCOSE 89 mg/dL (75-110); POTASSIUM 4.6 mmol/L (3.6-5.0)
[2017-03-08 07:48] LABS: ANION GAP 6 (5-19); CARBON DIOXIDE 33 mmol/L (22-30); SODIUM 122.6 mmol/L (137-145)
[2017-03-08] MEDS ORDERED: DEXTROSE 5%-WATER 1000 ML 1,000 ML IV PRN ×2 (08:32→23:10)
[2017-03-08] MEDS ORDERED: DESMOPRESSIN ACETATE INJ 4 MCG/1 ML AMPULE IV ONE ×2 (09:00→18:30)
[2017-03-08 09:42] LABS: BLOOD UREA NITROGEN 3 mg/dL (7-20); CALCIUM 7.8 mg/dL (8.4-10.2); CHLORIDE 85 mmol/L (98-107); CREATININE RESULT 0.39 mg/dL (0.52-1.25); GLUCOSE 102 mg/dL (75-110); POTASSIUM 4.7 mmol/L (3.6-5.0)
[2017-03-08 09:57] LABS: ANION GAP 6 (5-19); CARBON DIOXIDE 31 mmol/L (22-30); SODIUM 121.6 mmol/L (137-145)
[2017-03-08] MEDS: FERROUS SULFATE 325 MG TABLET PO SCH (10:30)
[2017-03-08] MEDS: LEVOTHYROXINE SODIUM 0.075 MG TABLET PO SCH (10:30)
[2017-03-08] MEDS: PREDNISONE 10 MG TABLET PO SCH (10:30)
[2017-03-08] MEDS: CLOPIDOGREL BISULFATE 75 MG TABLET PO SCH (10:30)
[2017-03-08] MEDS: DIAZEPAM 5 MG TABLET PO SCH ×2 (11:55→17:44)
[2017-03-08 12:02] LABS: ANION GAP 5 (5-19); BLOOD UREA NITROGEN 4 mg/dL (7-20); CALCIUM 7.7 mg/dL (8.4-10.2); CARBON DIOXIDE 33 mmol/L (22-30); CHLORIDE 83 mmol/L (98-107); CREATININE RESULT 0.46 mg/dL (0.52-1.25); GLUCOSE 161 mg/dL (75-110); POTASSIUM 4.3 mmol/L (3.6-5.0); SODIUM 121.4 mmol/L (137-145)
[2017-03-08] MEDS ORDERED: WATER IV ONE ×2 (13:00→18:30)
[2017-03-08] MEDS ORDERED: DEXTROSE 5% IV ONE ×2 (13:00→18:30)
[2017-03-08 13:41] LABS: BLOOD UREA NITROGEN 5 mg/dL (7-20); CALCIUM 7.4 mg/dL (8.4-10.2); CARBON DIOXIDE 34 mmol/L (22-30); CHLORIDE 83 mmol/L (98-107); CREATININE RESULT 0.44 mg/dL (0.52-1.25); GLUCOSE 159 mg/dL (75-110); POTASSIUM 4.2 mmol/L (3.6-5.0)
[2017-03-08 13:55] LABS: ANION GAP 4 (5-19)
[2017-03-08 13:57] LABS: SODIUM 120.7 mmol/L (137-145)
[2017-03-08 16:52] LABS: ANION GAP 6 (5-19); BLOOD UREA NITROGEN 5 mg/dL (7-20); CALCIUM 7.5 mg/dL (8.4-10.2); CARBON DIOXIDE 34 mmol/L (22-30); CHLORIDE 81 mmol/L (98-107); GLUCOSE 135 mg/dL (75-110); POTASSIUM 4.2 mmol/L (3.6-5.0); SODIUM 121.1 mmol/L (137-145)
[2017-03-08] MEDS ORDERED: ACETAMINOPHEN 325 MG TABLET PO PRN (17:49)
[2017-03-08] MEDS ORDERED: DESMOPRESSIN ACETATE INJ 4 MCG/1 ML AMPULE SUBCUT ONE (19:00)
[2017-03-08 19:15] LABS: ANION GAP 6 (5-19); BLOOD UREA NITROGEN 4 mg/dL (7-20); CALCIUM 7.2 mg/dL (8.4-10.2); CARBON DIOXIDE 32 mmol/L (22-30); CHLORIDE 80 mmol/L (98-107); CREATININE RESULT 0.44 mg/dL (0.52-1.25); GLUCOSE 137 mg/dL (75-110); POTASSIUM 4.1 mmol/L (3.6-5.0)
[2017-03-08 19:25] LABS: SODIUM 117.9 mmol/L (137-145)
--- NOTE | 2017-03-08 20:09 | PDOC PROGRESS REPORT ---
Subjective Progress Note for:: 03/08/17 Subjective:: Seen earlier today on morning rounds. Patient is resting comfortably when I see him. He is easily arousable. Patient denies chest pain, shortness of breath, nausea, vomiting, headache, focal weakness. Physical Exam Vital Signs: Temp Pulse Resp BP Pulse Ox 99.1 F 80 16 109/58 L 97 03/08/17 18:21 03/08/17 19:37 03/08/17 18:21 03/08/17 18:21 03/08/17 18:20 Intake & Output 03/07/17 03/08/17 03/09/17 06:59 06:59 06:59 Intake Total 887 3416 Output Total 2475 1313 Balance -1588 2103 Weight 53.6 kg Exam: GENERAL: No acute distress disheveled HEENT: Conjunctiva clear, nonicteric, moist mucous membranes, + JVD, midline trachea RESPIRATORY: rhonchi Bilaterally CARDIAC: Regular rate and rhythm, no murmurs/gallops/rubs ABDOMEN: Soft, nondistended, nontender, positive bowel sounds, no rebound, no guarding EXTREMETIES: no cyanosis, positive clubbing, +1 bilateral lower extremity edema NEUROLOGIC: Alert, oriented to person/place, CN's grossly intact, no focal deficits SKIN: No rash, lesion PSYCH: Normal mood, normal affect Results Laboratory Results: 03/08/17 07:02 03/08/17 18:45 03/07/17 03/08/17 03/08/17 22:10 00:15 07:02 WBC 5.7 RBC 3.65 L Hgb 10.3 L Hct 32.0 L MCV 88 MCH 28.3 MCHC 32.2 RDW 17.8 H Plt Count 429 Seg Neutrophils % 75.4 Lymphocytes % 6.1 L Monocytes % 17.9 H Eosinophils % 0.0 Basophils % 0.6 Absolute Neutrophils 4.3 Absolute Lymphocytes 0.3 L Absolute Monocytes 1.0 Absolute Eosinophils 0.0 Absolute Basophils 0.0 Sodium 111.9 L* Potassium 4.2 Chloride 72 L Carbon Dioxide 33 H Anion Gap 7 BUN 3 L Creatinine 0.38 L Est GFR ( Amer) > 60 Est GFR (Non-Af Amer) > 60 Glucose 93 Calcium 7.5 L Urine Color COLORLESS Urine Appearance CLEAR Urine pH 7.0 Ur Specific [place] 1.002 Urine Protein NEGATIVE Urine Glucose (UA) NEGATIVE Urine Ketones NEGATIVE Urine Blood NEGATIVE Urine Nitrite NEGATIVE Ur Leukocyte Esterase NEGATIVE Urine WBC (Auto) 1 03/08/17 03/08/17 03/08/17 07:02 09:05 11:05 WBC RBC Hgb Hct MCV MCH MCHC RDW Plt Count Seg Neutrophils % Lymphocytes % Monocytes % Eosinophils % Basophils % Absolute Neutrophils Absolute Lymphocytes Absolute Monocytes Absolute Eosinophils Absolute Basophils Sodium 122.6 L 121.6 L 121.4 L Potassium 4.6 4.7 4.3 Chloride 84 L 85 L 83 L Carbon Dioxide 33 H 31 H 33 H Anion Gap 6 6 5 BUN 3 L 3 L 4 L Creatinine 0.41 L 0.39 L 0.46 L Est GFR ( Amer) > 60 > 60 > 60 Est GFR (Non-Af Amer) > 60 > 60 > 60 Glucose 89 102 161 H Calcium 7.6 L 7.8 L 7.7 L Urine Color Urine Appearance Urine pH Ur Specific [place] Urine Protein Urine Glucose (UA) Urine Ketones Urine Blood Urine Nitrite Ur Leukocyte Esterase Urine WBC (Auto) 03/08/17 03/08/17 03/08/17 13:00 15:48 18:45 WBC RBC Hgb Hct MCV MCH MCHC RDW Plt Count Seg Neutrophils % Lymphocytes % Monocytes % Eosinophils % Basophils % Absolute Neutrophils Absolute Lymphocytes Absolute Monocytes Absolute Eosinophils Absolute Basophils Sodium 120.7 L* 121.1 L 117.9 L* Potassium 4.2 4.2 4.1 Chloride 83 L 81 L 80 L Carbon Dioxide 34 H 34 H 32 H Anion Gap 4 L 6 6 BUN 5 L 5 L 4 L Creatinine 0.44 L 0.40 L 0.44 L Est GFR ( Amer) > 60 > 60 > 60 Est GFR (Non-Af Amer) > 60 > 60 > 60 Glucose 159 H 135 H 137 H Calcium 7.4 L 7.5 L 7.2 L Urine Color Urine Appearance Urine pH Ur Specific [place] Urine Protein Urine Glucose (UA) Urine Ketones Urine Blood Urine Nitrite Ur Leukocyte Esterase Urine WBC (Auto) 03/08/17 07:02 Creatine Kinase 62 Impressions: Chest X-Ray 03/07/17 19:02 IMPRESSION: No significant interval change. No acute findings. Other findings as noted above Assessment & Plan - Diagnosis (1) Hyponatremia Is this a current diagnosis for this admission?: YesPlan: Severe hyponatremia and overcorrection. Have started D5 and given DDAVP. Having had this patient previously, with again the same problem, patient did not respond to low-dose DDAVP previously. BMP every 2 hours. Obtain nephrology Consultation (2) Acute and chronic respiratory failure with hypoxia Is this a current diagnosis for this admission?: YesPlan: Oxygen as needed. (3) Alcohol withdrawal Qualifiers: Complication of substance-induced condition: with delirium Qualified Code(s): F10.231 - Alcohol dependence with withdrawal delirium Is this a current diagnosis for this admission?: YesPlan: Patient is currently IVC for his protection. Thiamine, folic acid, multivitamin. Scheduled Valium and as needed Ativan (4) Coronary atherosclerosis Qualifiers: Coronary Disease-Associated Artery/Lesion type: unspecified vessel or lesion type [place] vs. transplanted heart: [place] heart Associated angina: angina presence unspecified Qualified Code(s): I25.10 - Atherosclerotic heart disease of [place] coronary artery without angina pectoris Is this a current diagnosis for this admission?: Yes (5) Alcohol abuse Is this a current diagnosis for this admission?: Yes (6) Tobacco abuse Is this a current diagnosis for this admission?: Yes (7) DNR (do not resuscitate) Is this a current diagnosis for this admission?: Yes - Time Time Spent with patient: 25-34 minutes Medications reviewed and adjusted accordingly: Yes
[2017-03-08] MEDS ORDERED: NICOTINE 21 MG/24 HR PATCH.TD24 TD ONE (21:00)
[2017-03-08] MEDS: THIAMINE HCL 100 MG, FOLIC ACID 1 MG in NORMAL SALINE 50 ML IV SCH (21:02)
[2017-03-08 21:37] LABS: ALANINE AMINOTRANSFERASE 32 U/L (21-72); ALBUMIN 2.7 g/dL (3.5-5.0); ALKALINE PHOSPHATASE 76 U/L (38-126); ASPARTATE AMINO TRANSFERASE 19 U/L (17-59); BILIRUBIN,DIRECT 0.3 mg/dL (0.0-0.4); BILIRUBIN,TOTAL 0.3 mg/dL (0.2-1.3); BLOOD UREA NITROGEN 4 mg/dL (7-20); CREATININE RESULT 0.39 mg/dL (0.52-1.25); GLUCOSE 123 mg/dL (75-110); TOTAL PROTEIN 5.1 g/dL (6.3-8.2)
[2017-03-08 21:50] LABS: CARBON DIOXIDE 34 mmol/L (22-30); CHLORIDE 79 mmol/L (98-107)
[2017-03-08 21:55] LABS: ANION GAP 2 (5-19)
[2017-03-08 21:59] LABS: CALCIUM 6.9 mg/dL (8.4-10.2); SODIUM 115.2 mmol/L (137-145)
[2017-03-08] MEDS ORDERED: CALCIUM GLUCONATE 1000 MG/10 ML INJ IV ONE (23:15)
[2017-03-09] MEDS: IPRATROPIUM/ALBUTEROL 0.5-2.5 MG/3 ML AMPUL NEB SCH ×3 (00:39→20:02)
[2017-03-09] MEDS: DIAZEPAM 5 MG TABLET PO SCH ×5 (00:54→23:30)
[2017-03-09 01:16] LABS: BLOOD UREA NITROGEN 2 mg/dL (7-20); CALCIUM 7.4 mg/dL (8.4-10.2); CARBON DIOXIDE 34 mmol/L (22-30); CHLORIDE 80 mmol/L (98-107); CREATININE RESULT 0.37 mg/dL (0.52-1.25); GLUCOSE 111 mg/dL (75-110)
[2017-03-09 01:28] LABS: ANION GAP 2 (5-19)
[2017-03-09 01:30] LABS: SODIUM 115.9 mmol/L (137-145)
[2017-03-09 05:43] LABS: ABSOLUTE LYMPHOCYTES (AUTO) 0.9 10^3/uL (0.5-4.7); ABSOLUTE MONOCYTES (AUTO) 1.5 10^3/uL (0.1-1.4); ABSOLUTE NEUT (AUTO) 8.5 10^3/uL (1.7-8.2); BASOPHILS % (AUTO) 0.1 % (0-2); HEMATOCRIT 32.9 % (37.9-51.0); HEMOGLOBIN 10.5 g/dL (13.5-17.0); HGB HCT DIFFERENCE -1.4; LYMPHOCYTES % (AUTO) 8.4 % (13-45); MEAN CORPUSCULAR HEMOGLOBIN 28.3 pg (27.0-33.4); MEAN CORPUSCULAR VOLUME 89 fl (80-97); MONOCYTES % (AUTO) 13.6 % (3-13); RED BLOOD COUNT 3.72 10^6/uL (4.35-5.55); RED CELL DISTRIBUTION WIDTH 17.5 % (11.5-14.0); SEGMENTED NEUTROPHILS % (AUTO) 77.9 % (42-78)
[2017-03-09 05:51] LABS: BLOOD UREA NITROGEN 2 mg/dL (7-20); CALCIUM 7.3 mg/dL (8.4-10.2); CHLORIDE 77 mmol/L (98-107); CREATININE RESULT 0.33 mg/dL (0.52-1.25); GLUCOSE 97 mg/dL (75-110)
[2017-03-09 06:00] LABS: CARBON DIOXIDE 36 mmol/L (22-30); POTASSIUM 3.8 mmol/L (3.6-5.0)
[2017-03-09 06:04] LABS: ANION GAP 4 (5-19)
[2017-03-09 06:05] LABS: SODIUM 116.5 mmol/L (137-145)
[2017-03-09] MEDS: HEPARIN SOD (PORCINE) 5,000 UNIT/ML 1 ML SYRINGE SUBCUT SCH ×3 (06:44→21:34)
[2017-03-09] MEDS: LEVOTHYROXINE SODIUM 0.075 MG TABLET PO SCH (09:11)
[2017-03-09] MEDS: LEVOFLOXACIN 750 MG TABLET PO SCH (09:11)
[2017-03-09] MEDS: LORAZEPAM INJ 2 MG/1 ML VIAL IV PRN ×4 (09:11→18:25)
[2017-03-09] MEDS: PREDNISONE 10 MG TABLET PO SCH ×2 (09:11→18:02)
[2017-03-09] MEDS: FERROUS SULFATE 325 MG TABLET PO SCH (09:11)
[2017-03-09] MEDS: NICOTINE 21 MG/24 HR PATCH.TD24 TD SCH (09:12)
[2017-03-09] MEDS: CLOPIDOGREL BISULFATE 75 MG TABLET PO SCH (09:12)
[2017-03-09] MEDS ORDERED: THIAMINE HCL 100 MG TABLET PO ONE (09:15)
[2017-03-09] MEDS ORDERED: FOLIC ACID 1 MG TABLET PO ONE (09:15)
[2017-03-09] MEDS ORDERED: TUBERCULIN,PURIF.PROT.DERIV. 5 TU/0.1 ML TEST 1 ML VIAL ID ONE (10:00)
[2017-03-09 10:01] LABS: CALCIUM 7.4 mg/dL (8.4-10.2); CARBON DIOXIDE 35 mmol/L (22-30); CHLORIDE 77 mmol/L (98-107); CREATININE RESULT 0.39 mg/dL (0.52-1.25); GLUCOSE 114 mg/dL (75-110); POTASSIUM 3.9 mmol/L (3.6-5.0)
[2017-03-09 10:06] LABS: BLOOD UREA NITROGEN < 2 mg/dL (7-20)
[2017-03-09 10:23] LABS: ANION GAP 2 (5-19)
[2017-03-09] MEDS: MULTIVITAMIN TABLET PO SCH (11:22)
[2017-03-09 14:28] LABS: BLOOD UREA NITROGEN 2 mg/dL (7-20); CALCIUM 7.6 mg/dL (8.4-10.2); CARBON DIOXIDE 38 mmol/L (22-30); CREATININE RESULT 0.38 mg/dL (0.52-1.25); GLUCOSE 111 mg/dL (75-110); POTASSIUM 4.2 mmol/L (3.6-5.0)
[2017-03-09 14:43] LABS: CHLORIDE 78 mmol/L (98-107)
[2017-03-09 14:48] LABS: ANION GAP 1 (5-19)
[2017-03-09 14:49] LABS: SODIUM 117.3 mmol/L (137-145)
[2017-03-09] MEDS ORDERED: NORMAL SALINE 1000 ML 1,000 ML IV PRN (14:49)
--- NOTE | 2017-03-09 15:03 | PDOC CONSULTATION ---
Consultation Consult Date: 03/09/17 Consult reason:: Acute hyponatremia in an alcoholic History of Present Illness Admission Date/PCP: 03/07/17 20:31 EPHRAIM MADSEN MD History of Present Illness: LEIF NUÑEZ is a 61 year old male with an extensive past medical history of severe alcoholism, hyponatremia, COPD, gait disorder, tobacco dependence and noncompliance. He presents to the emergency room approximately every other day with altered mental status alcohol intoxication and COPD exacerbation frequently leaving AGAINST MEDICAL ADVICE. However he is found obtunded with a sodium of 106 at this visit and he has been admitted.His na correction was rather rapid when it went up to 121 in 24 hrs. So he was begun on D5 and DDAVP and Na dropped back to around 114 and currently is 117. No h/o seizures. Ptn has been rather belligerent and he has to be sedated with Ativan. No narcotics has been given. He ate hisbreakfast and lunch as per discussions done with his treating nurse. He floats in and out of wakefulness and currently he is sleeping. Faint response to verbal commands and moveing on painful stimuli. Was given Ativan a hour ago . Past Medical History Cardiac Medical History: Reports: Coronary Artery Disease, Hyperlipidemia, Myocardial Infarction - OR occured in 2002. Takes ASA now, used to be on hypertensive medications Pulmonary Medical History: Reports: Asthma, Bronchitis, Chronic Obstructive Pulmonary Disease (COPD), Pneumonia Musculoskeltal Medical History: Reports: Arthritis Psychiatric Medical History: Reports: Alcohol Dependency, Depression, Tobacco Dependency Past Surgical History Past Surgical History: Reports: Cardiac Catheterization Social History Smoking Status: Current Every Day Smoker Cigarettes Packs Per Day: 1 Frequency of Alcohol Use: Heavy Hx Recreational Drug Use: No Drugs: None Hx Prescription Drug Abuse: No - Advance Directive Resuscitation Status: Do Not Resuscitate Family History Parental Family History Reviewed: No Children Family History Reviewed: No Sibling(s) Family History Reviewed.: No Medication/Allergy Allergies/Adverse Reactions: No Known Allergies Allergy (Verified 03/11/17 16:06) Review of Systems ROS unobtainable: Due to mental status Review of Systems: chart review was done and discussions done with treating Nurse Pranav. Physical Exam Vital Signs: Temp Pulse Resp BP Pulse Ox 98.4 F 81 19 104/57 L 97 03/09/17 13:45 03/09/17 13:45 03/09/17 13:45 03/09/17 13:45 03/09/17 13:45 Intake & Output 03/08/17 03/09/17 03/10/17 06:59 06:59 06:59 Intake Total 887 4812 524 Output Total 2475 1808 1500 Balance -1588 3004 -976 Weight 53.6 kg 57 kg General appearance: PRESENT: disheveled, thin Exam: sleeping hard. Response to painful stimuli. Head exam: PRESENT: atraumatic Eye exam: PRESENT: EOMI, PERRLA. ABSENT: conjunctiva pink, periorbital swelling Ear exam: PRESENT: normal external ear exam Mouth exam: PRESENT: neck supple Neck exam: ABSENT: lymphadenopathy, meningismus, tenderness, thyromegaly, tracheal deviation Respiratory exam: PRESENT: clear to auscultation trudy. ABSENT: crackles, rhonchi Cardiovascular exam: PRESENT: +S1, +S2 GI/Abdominal exam: PRESENT: normal bowel sounds, soft. ABSENT: distended, organomegaly, tenderness Neurological exam: PRESENT: altered Skin exam: PRESENT: dry. ABSENT: erythema, mottled Results Laboratory Results: 03/09/17 05:28 03/09/17 13:53 03/08/17 03/08/17 03/08/17 15:48 18:45 21:12 WBC RBC Hgb Hct MCV MCH MCHC RDW Plt Count Seg Neutrophils % Lymphocytes % Monocytes % Eosinophils % Basophils % Absolute Neutrophils Absolute Lymphocytes Absolute Monocytes Absolute Eosinophils Absolute Basophils Sodium 121.1 L 117.9 L* 115.2 L* Potassium 4.2 4.1 4.0 Chloride 81 L 80 L 79 L Carbon Dioxide 34 H 32 H 34 H Anion Gap 6 6 2 L BUN 5 L 4 L 4 L Creatinine 0.40 L 0.44 L 0.39 L Est GFR ( Amer) > 60 > 60 > 60 Est GFR (Non-Af Amer) > 60 > 60 > 60 Glucose 135 H 137 H 123 H Calcium 7.5 L 7.2 L 6.9 L* Total Bilirubin 0.3 AST 19 ALT 32 Alkaline Phosphatase 76 Total Protein 5.1 L Albumin 2.7 L 03/09/17 03/09/17 03/09/17 00:58 05:28 05:28 WBC 11.0 H RBC 3.72 L Hgb 10.5 L Hct 32.9 L MCV 89 MCH 28.3 MCHC 32.0 RDW 17.5 H Plt Count 293 Seg Neutrophils % 77.9 Lymphocytes % 8.4 L Monocytes % 13.6 H Eosinophils % 0.0 Basophils % 0.1 Absolute Neutrophils 8.5 H Absolute Lymphocytes 0.9 Absolute Monocytes 1.5 H Absolute Eosinophils 0.0 Absolute Basophils 0.0 Sodium 115.9 L* 116.5 L* Potassium 4.0 3.8 Chloride 80 L 77 L Carbon Dioxide 34 H 36 H Anion Gap 2 L 4 L BUN 2 L 2 L Creatinine 0.37 L 0.33 L Est GFR ( Amer) > 60 > 60 Est GFR (Non-Af Amer) > 60 > 60 Glucose 111 H 97 Calcium 7.4 L 7.3 L Total Bilirubin AST ALT Alkaline Phosphatase Total Protein Albumin 03/09/17 03/09/17 09:33 13:53 WBC RBC Hgb Hct MCV MCH MCHC RDW Plt Count Seg Neutrophils % Lymphocytes % Monocytes % Eosinophils % Basophils % Absolute Neutrophils Absolute Lymphocytes Absolute Monocytes Absolute Eosinophils Absolute Basophils Sodium 114.0 L* 117.3 L* Potassium 3.9 4.2 Chloride 77 L 78 L Carbon Dioxide 35 H 38 H Anion Gap 2 L 1 L BUN < 2 L 2 L Creatinine 0.39 L 0.38 L Est GFR ( Amer) > 60 > 60 Est GFR (Non-Af Amer) > 60 > 60 Glucose 114 H 111 H Calcium 7.4 L 7.6 L Total Bilirubin AST ALT Alkaline Phosphatase Total Protein Albumin 03/08/17 07:02 Creatine Kinase 62 Impressions: Chest X-Ray 03/07/17 19:02 IMPRESSION: No significant interval change. No acute findings. Other findings as noted above Assessment & Plan - Diagnosis (1) COPD with acute exacerbation Plan: stable (2) Hyponatremia Is this a current diagnosis for this admission?: YesPlan: Acute on chronic. He usually resides in the high 120's to low 130"s. Plan to correct Na around 10 meq / day max. Suggest getting it up to around 125 and no more for today. No obvious evidence of CPM but has to be careful in correction especially a alcoholic with potential liver cirrhosis. Start d5 and ddavp and monitor labs closely. (3) Hypocalcemia Plan: stable on correction (4) Hypophosphatemia Plan: Given kphos earlier.monitor. (5) Alcohol abuse Is this a current diagnosis for this admission?: YesPlan: unfortunate.
[2017-03-09] MEDS ORDERED: FUROSEMIDE INJ/PF 20 MG/2 ML SDV IV ONE (17:12)
--- NOTE | 2017-03-09 17:20 | PDOC PROGRESS REPORT ---
Subjective Progress Note for:: 03/09/17 Subjective:: Seen earlier today on morning rounds. Patient is breakfast and requesting to leave. Patient denies chest pain, shortness of breath, nausea, vomiting, headache, focal weakness. Physical Exam Vital Signs: Temp Pulse Resp BP Pulse Ox 98.4 F 79 16 113/64 100 03/09/17 06:21 03/09/17 00:40 03/09/17 06:21 03/09/17 06:21 03/09/17 06:21 Intake & Output 03/08/17 03/09/17 03/10/17 06:59 06:59 06:59 Intake Total 887 4812 Output Total 2475 1808 Balance -1588 3004 Weight 53.6 kg 57 kg Exam: GENERAL: No acute distress disheveled HEENT: Conjunctiva clear, nonicteric, moist mucous membranes, + JVD, midline trachea RESPIRATORY: rhonchi Bilaterally CARDIAC: Regular rate and rhythm, no murmurs/gallops/rubs ABDOMEN: Soft, nondistended, nontender, positive bowel sounds, no rebound, no guarding EXTREMETIES: no cyanosis, positive clubbing, +1 bilateral lower extremity edema NEUROLOGIC: Alert, oriented to person/place, CN's grossly intact, no focal deficits SKIN: No rash, lesion PSYCH: Normal mood, normal affect Results Laboratory Results: 03/09/17 05:28 03/09/17 05:28 03/08/17 03/08/17 03/08/17 07:02 07:02 09:05 WBC 5.7 RBC 3.65 L Hgb 10.3 L Hct 32.0 L MCV 88 MCH 28.3 MCHC 32.2 RDW 17.8 H Plt Count 429 Seg Neutrophils % 75.4 Lymphocytes % 6.1 L Monocytes % 17.9 H Eosinophils % 0.0 Basophils % 0.6 Absolute Neutrophils 4.3 Absolute Lymphocytes 0.3 L Absolute Monocytes 1.0 Absolute Eosinophils 0.0 Absolute Basophils 0.0 Sodium 122.6 L 121.6 L Potassium 4.6 4.7 Chloride 84 L 85 L Carbon Dioxide 33 H 31 H Anion Gap 6 6 BUN 3 L 3 L Creatinine 0.41 L 0.39 L Est GFR ( Amer) > 60 > 60 Est GFR (Non-Af Amer) > 60 > 60 Glucose 89 102 Calcium 7.6 L 7.8 L Total Bilirubin AST ALT Alkaline Phosphatase Total Protein Albumin 03/08/17 03/08/17 03/08/17 11:05 13:00 15:48 WBC RBC Hgb Hct MCV MCH MCHC RDW Plt Count Seg Neutrophils % Lymphocytes % Monocytes % Eosinophils % Basophils % Absolute Neutrophils Absolute Lymphocytes Absolute Monocytes Absolute Eosinophils Absolute Basophils Sodium 121.4 L 120.7 L* 121.1 L Potassium 4.3 4.2 4.2 Chloride 83 L 83 L 81 L Carbon Dioxide 33 H 34 H 34 H Anion Gap 5 4 L 6 BUN 4 L 5 L 5 L Creatinine 0.46 L 0.44 L 0.40 L Est GFR ( Amer) > 60 > 60 > 60 Est GFR (Non-Af Amer) > 60 > 60 > 60 Glucose 161 H 159 H 135 H Calcium 7.7 L 7.4 L 7.5 L Total Bilirubin AST ALT Alkaline Phosphatase Total Protein Albumin 03/08/17 03/08/17 03/09/17 18:45 21:12 00:58 WBC RBC Hgb Hct MCV MCH MCHC RDW Plt Count Seg Neutrophils % Lymphocytes % Monocytes % Eosinophils % Basophils % Absolute Neutrophils Absolute Lymphocytes Absolute Monocytes Absolute Eosinophils Absolute Basophils Sodium 117.9 L* 115.2 L* 115.9 L* Potassium 4.1 4.0 4.0 Chloride 80 L 79 L 80 L Carbon Dioxide 32 H 34 H 34 H Anion Gap 6 2 L 2 L BUN 4 L 4 L 2 L Creatinine 0.44 L 0.39 L 0.37 L Est GFR ( Amer) > 60 > 60 > 60 Est GFR (Non-Af Amer) > 60 > 60 > 60 Glucose 137 H 123 H 111 H Calcium 7.2 L 6.9 L* 7.4 L Total Bilirubin 0.3 AST 19 ALT 32 Alkaline Phosphatase 76 Total Protein 5.1 L Albumin 2.7 L 03/09/17 03/09/17 05:28 05:28 WBC 11.0 H RBC 3.72 L Hgb 10.5 L Hct 32.9 L MCV 89 MCH 28.3 MCHC 32.0 RDW 17.5 H Plt Count 293 Seg Neutrophils % 77.9 Lymphocytes % 8.4 L Monocytes % 13.6 H Eosinophils % 0.0 Basophils % 0.1 Absolute Neutrophils 8.5 H Absolute Lymphocytes 0.9 Absolute Monocytes 1.5 H Absolute Eosinophils 0.0 Absolute Basophils 0.0 Sodium 116.5 L* Potassium 3.8 Chloride 77 L Carbon Dioxide 36 H Anion Gap 4 L BUN 2 L Creatinine 0.33 L Est GFR ( Amer) > 60 Est GFR (Non-Af Amer) > 60 Glucose 97 Calcium 7.3 L Total Bilirubin AST ALT Alkaline Phosphatase Total Protein Albumin 03/08/17 07:02 Creatine Kinase 62 Impressions: Chest X-Ray 03/07/17 19:02 IMPRESSION: No significant interval change. No acute findings. Other findings as noted above Assessment & Plan - Diagnosis (1) Hyponatremia Is this a current diagnosis for this admission?: YesPlan: Severe hyponatremia and overcorrection. Patient DDAVP and D5 with appropriate decrease in serum sodium. Patient goal for sodium for the next 24 hours as no more than 125. BMP every 4 hours Volume overloaded (2) Acute and chronic respiratory failure with hypoxia Is this a current diagnosis for this admission?: YesPlan: Oxygen as needed. COPD (3) Alcohol withdrawal Qualifiers: Complication of substance-induced condition: with delirium Qualified Code(s): F10.231 - Alcohol dependence with withdrawal delirium Is this a current diagnosis for this admission?: YesPlan: Patient is currently IVC for his protection. Thiamine, folic acid, multivitamin. Scheduled Valium and as needed Ativan (4) Coronary atherosclerosis Qualifiers: Coronary Disease-Associated Artery/Lesion type: unspecified vessel or lesion type [place] vs. transplanted heart: [place] heart Associated angina: angina presence unspecified Qualified Code(s): I25.10 - Atherosclerotic heart disease of [place] coronary artery without angina pectoris Is this a current diagnosis for this admission?: Yes (5) Alcohol abuse Is this a current diagnosis for this admission?: Yes (6) Tobacco abuse Is this a current diagnosis for this admission?: Yes (7) DNR (do not resuscitate) Is this a current diagnosis for this admission?: Yes (8) COPD with acute exacerbation Is this a current diagnosis for this admission?: YesPlan: Place on Levaquin and Prednisone. Scheduled nebulized treatments - Time Time Spent with patient: 25-34 minutes Medications reviewed and adjusted accordingly: Yes
[2017-03-09 17:47] LABS: BLOOD UREA NITROGEN 2 mg/dL (7-20); CALCIUM 7.8 mg/dL (8.4-10.2); CARBON DIOXIDE 36 mmol/L (22-30); CHLORIDE 80 mmol/L (98-107); GLUCOSE 123 mg/dL (75-110)
[2017-03-09 17:57] LABS: POTASSIUM 4.4 mmol/L (3.6-5.0)
[2017-03-09] MEDS: PHOSPHORUS #1 250 MG TABLET PO SCH ×2 (18:01→21:33)
[2017-03-09 18:02] LABS: ANION GAP 2 (5-19)
[2017-03-09 18:12] LABS: SODIUM 118.1 mmol/L (137-145)
[2017-03-09 23:47] LABS: BLOOD UREA NITROGEN 4 mg/dL (7-20); CARBON DIOXIDE 39 mmol/L (22-30); CHLORIDE 80 mmol/L (98-107); CREATININE RESULT 0.37 mg/dL (0.52-1.25); GLUCOSE 135 mg/dL (75-110)
[2017-03-09 23:57] LABS: SODIUM 123.1 mmol/L (137-145)
[2017-03-10 00:02] LABS: ANION GAP 4 (5-19)
[2017-03-10] MEDS: LORAZEPAM INJ 2 MG/1 ML VIAL IV PRN ×2 (00:03→05:29)
--- NOTE | 2017-03-10 00:24 | RADIOLOGY REPORT (SQ) ---
EXAM DESCRIPTION: CHEST SINGLE VIEW COMPLETED DATE/TIME: 03/09/2017 5:42 pm REASON FOR STUDY: concern for pna COMPARISON: Chest x-ray 03/07/2017, 10/31/2016. EXAM PARAMETERS: NUMBER OF VIEWS: One view. TECHNIQUE: Single frontal radiographic view of the chest acquired. RADIATION DOSE: NA LIMITATIONS: Patient positioning FINDINGS: LUNGS AND PLEURA: The patient's chin is obscuring the lung apices. No large pneumothorax is identified. There is blunting of bilateral costophrenic angles suggestive of small effusions. Th ere are bibasilar ground-glass opacities. MEDIASTINUM AND HILAR STRUCTURES: No masses. Contour normal. HEART AND VASCULAR STRUCTURES: Heart normal in size. No overt vascular congestion. BONES: Remote left-sided rib fractures are noted. HARDWARE: None in the chest. IMPRESSION: Small bilateral pleural effusions and bibasilar ground-glass opacities, may represent at electasis or pneumonia. TECHNICAL DOCUMENTATION: JOB ID: [id number] CT-[id number]
[2017-03-10] MEDS: IPRATROPIUM/ALBUTEROL 0.5-2.5 MG/3 ML AMPUL NEB SCH ×2 (02:13→07:56)
[2017-03-10 03:57] LABS: ABSOLUTE BASOPHILS # (AUTO) 0.1 10^3/uL (0.0-0.2); ABSOLUTE LYMPHOCYTES (AUTO) 0.6 10^3/uL (0.5-4.7); ABSOLUTE MONOCYTES (AUTO) 1.1 10^3/uL (0.1-1.4); ABSOLUTE NEUT (AUTO) 7.9 10^3/uL (1.7-8.2); BASOPHILS % (AUTO) 0.5 % (0-2); HEMATOCRIT 29.8 % (37.9-51.0); HEMOGLOBIN 9.6 g/dL (13.5-17.0); LYMPHOCYTES % (AUTO) 6.3 % (13-45); MEAN CORPUSCULAR HEMOGLOBIN 28.5 pg (27.0-33.4); MEAN CORPUSCULAR HGB CONC 32.1 g/dL (32.0-36.0); MEAN CORPUSCULAR VOLUME 89 fl (80-97); MONOCYTES % (AUTO) 11.6 % (3-13); RED BLOOD COUNT 3.36 10^6/uL (4.35-5.55); RED CELL DISTRIBUTION WIDTH 18.2 % (11.5-14.0); SEGMENTED NEUTROPHILS % (AUTO) 81.6 % (42-78); WHITE BLOOD COUNT 9.7 10^3/uL (4.0-10.5)
[2017-03-10 04:03] LABS: BLOOD UREA NITROGEN 4 mg/dL (7-20); CALCIUM 7.8 mg/dL (8.4-10.2); CHLORIDE 81 mmol/L (98-107); GLUCOSE 147 mg/dL (75-110); PHOSPHORUS 3.8 mg/dL (2.5-4.5); POTASSIUM 4.1 mmol/L (3.6-5.0)
[2017-03-10 04:18] LABS: SODIUM 124.7 mmol/L (137-145)
[2017-03-10 04:31] LABS: ANION GAP 3 (5-19)
[2017-03-10 04:32] LABS: CARBON DIOXIDE 41 mmol/L (22-30)
[2017-03-10] MEDS: HEPARIN SOD (PORCINE) 5,000 UNIT/ML 1 ML SYRINGE SUBCUT SCH (05:15)
[2017-03-10] MEDS: DIAZEPAM 5 MG TABLET PO SCH (05:15)
[2017-03-10 08:22] VITALS: BP 113/55
[2017-03-10 08:28] LABS: BLOOD UREA NITROGEN 4 mg/dL (7-20); CALCIUM 8.2 mg/dL (8.4-10.2); CHLORIDE 82 mmol/L (98-107); CREATININE RESULT 0.39 mg/dL (0.52-1.25); GLUCOSE 94 mg/dL (75-110); POTASSIUM 3.9 mmol/L (3.6-5.0); SODIUM 126.3 mmol/L (137-145)
[2017-03-10 08:42] LABS: ANION GAP 4 (5-19)
[2017-03-10 08:43] LABS: CARBON DIOXIDE 40 mmol/L (22-30)
[2017-03-10] MEDS: LEVOTHYROXINE SODIUM 0.075 MG TABLET PO SCH (09:55)
[2017-03-10] MEDS: FERROUS SULFATE 325 MG TABLET PO SCH (09:56)
[2017-03-10] MEDS: PHOSPHORUS #1 250 MG TABLET PO SCH ×2 (09:56→10:03)
[2017-03-10] MEDS: MULTIVITAMIN TABLET PO SCH (09:56)
[2017-03-10] MEDS: LEVOFLOXACIN 750 MG TABLET PO SCH (09:56)
[2017-03-10] MEDS: PREDNISONE 10 MG TABLET PO SCH (09:56)
[2017-03-10] MEDS: CLOPIDOGREL BISULFATE 75 MG TABLET PO SCH (09:56)
[2017-03-10] MEDS: NICOTINE 21 MG/24 HR PATCH.TD24 TD SCH (09:57)
[2017-03-10] MEDS ORDERED: FOLIC ACID 1 MG TABLET PO SCH (10:00)
[2017-03-10] MEDS ORDERED: THIAMINE HCL 100 MG TABLET PO SCH (10:00)
[2017-03-10] MEDS ORDERED: FUROSEMIDE INJ/PF 20 MG/2 ML SDV IV ONE (11:00)
--- NOTE | 2017-03-10 16:52 | PDOC DISCHARGE SUMMARY ---
General - Admit/Disc Date/PCP Admission Date/Primary Care Provider: 03/07/17 20:31 EPHRAIM MADSEN MD Discharge Date: 03/10/17 - Discharge Diagnosis (1) Left against medical advice Is this a current diagnosis for this admission?: Yes (2) Hyponatremia Is this a current diagnosis for this admission?: Yes (3) Acute and chronic respiratory failure with hypoxia Is this a current diagnosis for this admission?: Yes (4) Alcohol withdrawal Is this a current diagnosis for this admission?: Yes (5) Coronary atherosclerosis Is this a current diagnosis for this admission?: Yes (6) Alcohol abuse Is this a current diagnosis for this admission?: Yes (7) Tobacco abuse Is this a current diagnosis for this admission?: Yes (8) DNR (do not resuscitate) Is this a current diagnosis for this admission?: Yes (9) COPD with acute exacerbation Is this a current diagnosis for this admission?: Yes - Additional Information Resuscitation Status: Do Not Resuscitate Home Medications: Albuterol Sulfate [Ventolin HFA MDI 18 GM] 2 puff IH Q4HP PRN 02/07/17 Alprazolam [Xanax 0.5 mg Tablet] 0.5 mg PO QHS 02/07/17 Budesonide/Formoterol Fumarate [Symbicort HFA 160-4.5 mcg Inhaler 6 gm] 2 puff IH Q12 02/07/17 Levothyroxine Sodium [Synthroid 0.075 mg Tablet] 0.075 mg PO DAILY 02/07/17 Lisinopril [Prinivil] 20 mg PO DAILY 02/07/[address] [Spiriva Respimat] 2 puff IH DAILY 02/07/17 Clopidogrel Bisulfate [Clopidogrel] 75 mg PO DAILY 02/11/17 Rosuvastatin Calcium 20 mg PO DAILY 02/11/17 Cyanocobalamin/Folic Acid [Vitamin B-12 & Folic Acid Tablet] 1 each PO DAILY # 30 tablet 02/12/17 Ferrous Sulfate [Feosol 325 mg Tablet] 325 mg PO DAILY #30 tablet 02/12/17 Thiamine HCl [Thiamine 100 mg Tablet] 100 mg PO DAILY #30 tablet 02/12/17 Calcium Carbonate/Vitamin D3 [Calcium 500 + Vit D Caplet] 1 tab PO BID 02/21/17 Oxycodone HCl/Acetaminophen [Oxycodon-Acetaminophen 7.5-325] 1 tab PO Q6HP PRN 02/21/17 History of Present Illness History of Present Illness: LEIF NUÑEZ is a 61 year old male extensive past medical history of severe alcoholism, hyponatremia, COPD, gait disorder, tobacco dependence and noncompliance. He presents to the emergency room approximately every other day with altered mental status alcohol intoxication and COPD exacerbation frequently leaving AGAINST MEDICAL ADVICE. However he is found obtunded with a sodium of 106 he is referred to the hospitalist for admission. Hospital Course Hospital Course: Patient had a quick correction of his sodium which was treated with DDAVP and D5. Then as patient suffers from hyponatremia secondary to beer potomania and volume overload, Lasix was initiated for this patient. Initially due to his profound hyponatremia and confusion as well as alcohol intoxication, patient was IVC'd and this was rescinded today. And was awake alert and oriented 3 and after I saw him elected to leave AGAINST MEDICAL ADVICE despite my admonitions that leaving may result in , locked-in syndrome, or permanent harm to his physical self or psyche. Physical Exam Vital Signs: Temp Pulse Resp BP Pulse Ox 97.9 F 80 16 113/55 L 93 03/10/17 07:20 03/10/17 07:59 03/10/17 07:59 03/10/17 07:20 03/10/17 07:59 Intake & Output 03/09/17 03/10/17 03/11/17 06:59 06:59 06:59 Intake Total 4812 950 Output Total 1808 4200 Balance 3004 -3250 Weight 57 kg 56.9 kg Exam: GENERAL: No acute distress disheveled HEENT: Conjunctiva clear, nonicteric, moist mucous membranes, + JVD, midline trachea RESPIRATORY: occasional rhonchi Bilaterally CARDIAC: Regular rate and rhythm, no murmurs/gallops/rubs ABDOMEN: Soft, nondistended, nontender, positive bowel sounds, no rebound, no guarding EXTREMETIES: no cyanosis, positive clubbing, +1 bilateral lower extremity edema NEUROLOGIC: Alert, oriented to person/place, CN's grossly intact, no focal deficits SKIN: No rash, lesion PSYCH: Normal mood, normal affect Results Laboratory Results: 03/10/17 03:34 03/10/17 07:55 03/09/17 03/09/17 03/10/17 17:13 23:19 03:34 WBC RBC Hgb Hct MCV MCH MCHC RDW Plt Count Seg Neutrophils % Lymphocytes % Monocytes % Eosinophils % Basophils % Absolute Neutrophils Absolute Lymphocytes Absolute Monocytes Absolute Eosinophils Absolute Basophils Sodium 118.1 L* 123.1 L 124.7 L Potassium 4.4 4.0 4.1 Chloride 80 L 80 L 81 L Carbon Dioxide 36 H 39 H 41 H* Anion Gap 2 L 4 L 3 L BUN 2 L 4 L 4 L Creatinine 0.40 L 0.37 L 0.40 L Est GFR ( Amer) > 60 > 60 > 60 Est GFR (Non-Af Amer) > 60 > 60 > 60 Glucose 123 H 135 H 147 H Calcium 7.8 L 8.0 L 7.8 L Phosphorus 3.8 03/10/17 03/10/17 03:34 07:55 WBC 9.7 RBC 3.36 L Hgb 9.6 L Hct 29.8 L MCV 89 MCH 28.5 MCHC 32.1 RDW 18.2 H Plt Count 282 Seg Neutrophils % 81.6 H Lymphocytes % 6.3 L Monocytes % 11.6 Eosinophils % 0.0 Basophils % 0.5 Absolute Neutrophils 7.9 Absolute Lymphocytes 0.6 Absolute Monocytes 1.1 Absolute Eosinophils 0.0 Absolute Basophils 0.1 Sodium 126.3 L Potassium 3.9 Chloride 82 L Carbon Dioxide 40 H* Anion Gap 4 L BUN 4 L Creatinine 0.39 L Est GFR ( Amer) > 60 Est GFR (Non-Af Amer) > 60 Glucose 94 Calcium 8.2 L Phosphorus 03/08/17 07:02 Creatine Kinase 62 Impressions: Chest X-Ray 03/09/17 00:00 IMPRESSION: Small bilateral pleural effusions and bibasilar ground-glass opacities, may represent atelectasis or pneumonia. Qualifiers PATEINT BEING DISCHARGED WITH ANY OF THE FOLLOWING DIAGNOSIS?: No Plan Time Spent: Less than 30 Minutes
== END 2017-03-10 12:36 | disposition left against medical advice (07) | DRG 189 ==
LOC: ER 17:04 → EH 20:31 → UNDOADMIN 20:42 → ICU 22:59 → 3N 03-09 14:13
PROVIDERS: ADMIT Internal Medicine; ATTEND Internal Medicine
DX: J96.21 Acute and chronic respiratory failure with hypoxia (principal); J44.1 Chronic obstructive pulmonary disease with (acute) exacerbation; E87.1 Hypo-osmolality and hyponatremia; F10.231 Alcohol dependence with withdrawal delirium; I25.10 Atherosclerotic heart disease of native coronary artery without angina pectoris; M19.90 Unspecified osteoarthritis, unspecified site; Z66 Do not resuscitate; Z79.899 Other long term (current) drug therapy; Z91.19 Patient's noncompliance with other medical treatment and regimen; I25.2 Old myocardial infarction; F17.210 Nicotine dependence, cigarettes, uncomplicated
CPT/HCPCS: 36415; 71010; 80048; 80053; 80307; 81001; 82550; 82962; 83735; 83880; 83930; 83935; 84100; 84300; 85025; 93005; 94640; 99291; J0610; J1644; J1940; J2060; J2597; J3411; J3490; J7040; J7060; J7512; J7620

== ENCOUNTER 2017-03-10 22:45 | Inpatient (IN) | payer MEDICARE, MEDICAID ==
[2017-03-10] MEDS ORDERED: ALBUTEROL SULFATE 0.083% NEB 2.5 MG/3 ML AMPUL NEB ONE (23:04)
--- NOTE | 2017-03-10 23:05 | ER Document Report ---
ED General - General Stated Complaint: DIFFICULTY BREATHING Time Seen by Provider: 03/10/17 22:55 Notes: Patient is a 61-year-old male who presents with complaint of altered mental status and difficulty breathing. Neighbor saw him sitting in the yard and not moving.. An ambulance arrived and his oxygen saturation was low. They placed him on oxygen and brought him here. He is recently just discharged from the hospital due to severe hyponatremia related to be reported media. Patient currently smells like beer. He will not answer questions. He seems altered and confused. He just stares off and does not answer verbally. He will follow some commands. TRAVEL OUTSIDE OF THE [place] IN LAST 30 DAYS: No - Related Data Allergies/Adverse Reactions: No Known Allergies Allergy (Verified 03/07/17 17:21) Past Medical History - Social History Smoking Status: Current Every Day Smoker Frequency of alcohol use: Heavy Drug Abuse: None Family History: Reviewed & Not Pertinent, Arthritis, CAD, COPD - Past Medical History Cardiac Medical History: Reports: Hx Coronary Artery Disease, Hx Heart Attack - MA occured in 2002. Takes ASA now, used to be on hypertensive medications, Hx Hypercholesterolemia, Hx Hypertension Pulmonary Medical History: Reports: Hx Asthma, Hx Bronchitis, Hx COPD, Hx Pneumonia Renal/ Medical History: Denies: Hx Peritoneal Dialysis Musculoskeltal Medical History: Reports Hx Arthritis, Reports Hx Musculoskeletal Deformity, Reports Hx Musculoskeletal Trauma Psychiatric Medical History: Reports: Hx Borderline Personality Disorder, Hx Depression Traumatic Medical History: Reports: Hx Fractures - Left rib fractures with pneumothorax requiring chest tube on 05/23/2016 Past Surgical History: Reports: Hx Cardiac Catheterization - Immunizations Immunizations up to date: Yes Hx Diphtheria, Pertussis, Tetanus Vaccination: - unknown Hx Pneumococcal Vaccination: 02/22/13 Review of Systems - Review of Systems -: Yes ROS unobtainable due to patient's medical condition - altered mental status Physical Exam - Vital signs Vitals: BP Pulse Ox 155/82 H 94 03/10/17 22:59 03/10/17 22:59 - Notes Notes: General Appearance: Patient is sitting in the bed with eyes open. He does follow some commands but does not respond verbally. Mild respiratory distress. Vitals: reviewed, See vital signs table. Head: no swelling or tenderness to the head Eyes: PERRL, EOMI, Conjuctiva clear Mouth: No decreasd moisture Throat: No tonsillar inflammation, No airway obstruction, No lymphadenopathy Neck: Supple, no neck tenderness, No thyromegaly Lungs: Scattered wheezing, No rales, No rhonci, No accessory muscle use, good air exchange bilaterally. Heart: Normal rate, Regular rythm, No murmur, no rub Abdomen: Normal BS, soft, No rigidity, No abdominal tenderness, No guarding, no rebound, no abdominal masses, no organomegaly Extremities: strength 5/5 in all extremities, good pulses in all extremities, no swelling or tenderness in the extremities, no edema. Skin: warm, dry, appropriate color, no rash Neuro: Neuro exam is difficult to obtain because patient will not follow commands. Cranial nerves II through XII appear to be intact. Patient appears to be able to move his extremities but again strength testing is limited because he will not follow my commands. Patient will not speak to me verbally. Course - Re-evaluation Re-evalutation: 03/10/17 23:05 I suspect patient probably has severe hyponatremia or is just extremely intoxicated based on his presentation altered mental status. His EKG does show some peak T waves. He does have some scattered wheezing. I will given multiple albuterol treatments to help with his wheezing but also to help with potential hyperkalemia until we get his laboratory evaluation back. I will withhold fluids at this time until I see exactly what his electrolyte status is. 03/10/17 23:59 Patient's call level came back less than 10. Patient smells if he has been drinking alcohol. I will have them repeat alcohol level. Patient was just discharged from the hospital today. He tells me that he drank 1 beer. He has no tremor. He has no tachycardia. He really has no other signs of alcohol withdrawal other than being confused. 03/11/17 00:05 Looking through his records from his last admission appears that his sodium corrected rapidly. I do have concerns for possible central pontine myelinolysis. He is showing signs and symptoms that would be consistent with that. I have ordered a CT scan of his head. MRI is not available at night. 03/11/17 00:30 Blood gas came back with elevated carbon dioxide. I will place him on BiPAP. We will check the CO2 after he has been on BiPAP for at least 30 minutes. - Vital Signs Vital signs: Temp Pulse Resp BP Pulse Ox 22 H 173/81 H 86 L 06/26/17 01:06 03/10/17 23:02 03/11/17 01:06 - Laboratory Result Diagrams: 03/10/17 23:10 03/10/17 23:10 Laboratory results interpreted by me: 03/10/17 03/10/17 03/10/17 23:10 23:10 23:30 WBC 11.7 H RBC 3.75 L Hgb 10.6 L Hct 33.8 L MCHC 31.2 L RDW 17.8 H Lymphocytes % 8.3 L Monocytes % 13.5 H Absolute Neutrophils 9.1 H Absolute Monocytes 1.6 H VBG pCO2 VBG HCO3 Sodium 126.3 L Chloride 80 L Carbon Dioxide 40 H* BUN 3 L Creatinine 0.40 L Urine Sodium 133 H 03/10/17 03/11/17 23:55 02:03 WBC RBC Hgb Hct MCHC RDW Lymphocytes % Monocytes % Absolute Neutrophils Absolute Monocytes VBG pCO2 99.3 H* 86.8 H* VBG HCO3 49.3 H 45.9 H Sodium Chloride Carbon Dioxide BUN Creatinine Urine Sodium - EKG Interpretation by Me Additional EKG results interpreted by me: 03/10/17 23:04 EKG is reviewed and interpreted by me. EKG shows normal sinus rhythm with rate of [address] segment elevation or depression. Patient does have peak T waves in the anterior lateral precordial leads which are new in comparison to his previous EKG from March 05, 2017. [place] interval, QRS duration, QTc intervals are within normal range. 03/10/17 23:08 - Transfer of Care Notes: 03/11/17 02:31 I did repeat the blood test approximately 30 minutes after being placed on BiPAP. His CO2 is trending downward appropriately. His neurologic status is not changing. He will still open his eyes when he talked to him. He still is unable to pick his head up. He still keeps his arms and legs flat against the bed. He still will only say 1 word at a time. At this time I am still concerned of the possibility of central pontine myelinolysis. We will have to wait to see if once his hyper Be resolved if he still has the altered mental status and neurologic symptoms. I did speak with the hospitalist and he agrees to admit the patient for continued workup. Dictation of this chart was performed using voice recognition software; therefore, there may be some unintended grammatical errors. Discharge - Discharge Clinical Impression: Hypercapnia, Hyponatremia Altered mental status Qualifiers: Altered mental status type: unspecified Qualified Code(s): R41.82 - Altered mental status, unspecified Condition: Serious Disposition: ADMITTED INPATIENT Unit Admitted: [facility]
[2017-03-10 23:28] LABS: ABSOLUTE BASOPHILS # (AUTO) 0.1 10^3/uL (0.0-0.2); ABSOLUTE MONOCYTES (AUTO) 1.6 10^3/uL (0.1-1.4); ABSOLUTE NEUT (AUTO) 9.1 10^3/uL (1.7-8.2); BASOPHILS % (AUTO) 0.4 % (0-2); HEMATOCRIT 33.8 % (37.9-51.0); HEMOGLOBIN 10.6 g/dL (13.5-17.0); LYMPHOCYTES % (AUTO) 8.3 % (13-45); MEAN CORPUSCULAR HEMOGLOBIN 28.2 pg (27.0-33.4); MEAN CORPUSCULAR HGB CONC 31.2 g/dL (32.0-36.0); MEAN CORPUSCULAR VOLUME 90 fl (80-97); MONOCYTES % (AUTO) 13.5 % (3-13); RED BLOOD COUNT 3.75 10^6/uL (4.35-5.55); RED CELL DISTRIBUTION WIDTH 17.8 % (11.5-14.0); SEGMENTED NEUTROPHILS % (AUTO) 77.8 % (42-78); WHITE BLOOD COUNT 11.7 10^3/uL (4.0-10.5)
[2017-03-10 23:37] LABS: ALANINE AMINOTRANSFERASE 38 U/L (21-72); ALBUMIN 3.5 g/dL (3.5-5.0); ALKALINE PHOSPHATASE 84 U/L (38-126); ASPARTATE AMINO TRANSFERASE 22 U/L (17-59); BILIRUBIN,DIRECT 0.3 mg/dL (0.0-0.4); BILIRUBIN,TOTAL 0.5 mg/dL (0.2-1.3); BLOOD UREA NITROGEN 3 mg/dL (7-20); CALCIUM 8.5 mg/dL (8.4-10.2); CHLORIDE 80 mmol/L (98-107); GLUCOSE 104 mg/dL (75-110); POTASSIUM 3.8 mmol/L (3.6-5.0); SODIUM 126.3 mmol/L (137-145); TOTAL PROTEIN 6.7 g/dL (6.3-8.2)
[2017-03-10 23:38] LABS: ALCOHOL < 10 mg/dL (NONE DETECTED); ANION GAP 6 (5-19)
[2017-03-10 23:45] LABS: CARBON DIOXIDE 40 mmol/L (22-30)
--- NOTE | 2017-03-10 23:51 | RADIOLOGY REPORT (SQ) ---
EXAM DESCRIPTION: CHEST SINGLE VIEW COMPLETED DATE/TIME: 03/10/2017 11:31 pm REASON FOR STUDY: dyspnea COMPARISON: 03/09/2017 EXAM PARAMETERS: NUMBER OF VIEWS: One view. TECHNIQUE: Single frontal radiographic view of the chest acquired. RADIATION DOSE: NA LIMITATIONS: None. FINDINGS: LUNGS AND PLEURA: Increasing airspace markings in the left lung base. Similar small left pleural effusion. Right lung appears clear. MEDIASTINUM AND HILAR STRUCTURES: Stable. HEART AND VASCULAR STRUCTURES: Stable. BONES: No acute findings. HARDWARE: None in the chest. OTHER: No other significant finding. IMPRESSION: Increasing airspace markings in the left lung base. Similar small left pleural effusion . Right lung appears clear. TECHNICAL DOCUMENTATION: JOB ID: [id number]
[2017-03-11] MEDS ORDERED: DEXAMETHASONE SOD PHOS INJ 10 MG/1 ML VIAL IV ONE (00:10)
[2017-03-11 00:18] LABS: VENOUS BLOOD BASE EXCESS 18.5 mmol/L; VENOUS BLOOD HCO3 49.3 mmol/L (20-32); VENOUS BLOOD PH 7.31 (7.30-7.42)
[2017-03-11 00:20] LABS: VENOUS BLOOD PCO2 99.3 mmHg (35-63)
--- NOTE | 2017-03-11 00:59 | RADIOLOGY REPORT (SQ) ---
EXAM DESCRIPTION: CT HEAD WITHOUT COMPLETED DATE/TIME: 03/11/2017 12:47 am REASON FOR STUDY: altered mental status COMPARISON: 02/07/2017. TECHNIQUE: Axial images acquired through the brain without intravenous contrast. Images reviewed wi th bone, brain and subdural windows. Images stored on PACS. All CT scanners at this facility use dose modulation, iterative reconstruction, and/or weight based d osing when appropriate to reduce radiation dose to as low as reasonably achievable (ALARA). [facility]: Dose Right [facility]: CareDose [facility]: Dose Right [facility]: Teradose 4D [facility]: fitkit RADIATION DOSE: 1769 LIMITATIONS: Streak -motion artifact. FINDINGS: VENTRICLES: Normal size and contour. CEREBRUM: No masses. No hemorrhage. No midline shift. Normal osorio/white matter differentiation. N o evidence for acute infarction. Mild cerebral volume loss. CEREBELLUM: No masses. No hemorrhage. No alteration of density. No evidence for acute infarction. EXTRAAXIAL SPACES: No fluid collections. No masses. ORBITS AND GLOBE: No intra- or extraconal masses. Normal contour of globe without masses. CALVARIUM: No fracture. PARANASAL SINUSES: No fluid or mucosal thickening. SOFT TISSUES: No mass or hematoma. OTHER: No other significant finding. IMPRESSION: No acute findings. TECHNICAL DOCUMENTATION: JOB ID: [id number] Quality ID # [id number]: Final reports with documentation of one or more dose reduction techniques (e.g., Au tomated exposure control, adjustment of the mA and/or kV according to patient size, use of iterative reconstruction technique) 2010 [employer]- All Rights Reserved
[2017-03-11 01:04] LABS: URINE CREATININE 65.2 mg/dL (22-328)
[2017-03-11 02:14] LABS: VENOUS BLOOD BASE EXCESS 16.4 mmol/L; VENOUS BLOOD HCO3 45.9 mmol/L (20-32); VENOUS BLOOD PH 7.34 (7.30-7.42)
[2017-03-11 02:15] LABS: VENOUS BLOOD PCO2 86.8 mmHg (35-63)
[2017-03-11 02:35] LABS: URINE BARBITURATES SCREEN NEGATIVE; URINE METHADONE SCREEN NEGATIVE; URINE OPIATES LOW UNCONFIRMED POSITIVE; URINE PHENCYCLIDINE SCREEN NEGATIVE
[2017-03-11] MEDS ORDERED: THIAMINE HCL 100 MG in NORMAL SALINE 50 ML IV ONE (02:35)
[2017-03-11] MEDS ORDERED: THIAMINE HCL INJ 200 MG/2 ML VIAL ONE (03:01)
[2017-03-11] MEDS ORDERED: NALOXONE HCL INJ/PF 0.4 MG/1 ML SDV ONE ×2 (04:52→05:20)
[2017-03-11] MEDS ORDERED: NALOXONE HCL INJ/PF 0.4 MG/1 ML SDV IV PRN (05:16)
--- NOTE | 2017-03-11 05:33 | PDOC H&P ---
History of Present Illness Admission Date/PCP: 03/11/17 03:01 Patient complains of: Altered mental status History of Present Illness: LEIF NUÑEZ is a 61 year old male with an extensive past medical history of severe alcoholism, recurrent hyponatremia, COPD, ataxia, tobacco dependence and noncompliance. He presents to the emergency room approximately every other day with alcohol intoxication, COPD exacerbation, encephalopathy and hyponatremia. He left the hospital 24 hours ago AGAINST MEDICAL ADVICE only to return obtunded with acute respiratory failure, hyponatremia, opiate and benzodiazepine intoxication. He receives BiPAP and referred to the hospitalist for admission. He is unable to provide additional history Past Medical History Cardiac Medical History: Reports: Coronary Artery Disease, Myocardial Infarction - [place] occured in 2002. Takes ASA now, used to be on hypertensive medications, Hyperlipidema, Hypertension Pulmonary Medical History: Reports: Asthma, Bronchitis, Chronic Obstructive Pulmonary Disease (COPD), Pneumonia Musculoskeltal Medical History: Reports: Arthritis Psychiatric Medical History: Reports: Depression Past Surgical History Past Surgical History: Reports: Cardiac Catheterization Social History Smoking Status: Current Every Day Smoker Frequency of Alcohol Use: Heavy Hx Recreational Drug Use: No Drugs: None Hx Prescription Drug Abuse: Yes - Opiate and benzodiazepine - Advance Directive Resuscitation Status: Do Not Resuscitate Family History Family History: Reviewed & Not Pertinent, Arthritis, CAD, COPD Parental Family History Reviewed: Yes Children Family History Reviewed: Yes Sibling(s) Family History Reviewed.: Yes Medication/Allergy Home Medications: Albuterol Sulfate [Ventolin HFA MDI 18 GM] 2 puff IH Q4HP PRN 02/07/17 Alprazolam [Xanax 0.5 mg Tablet] 0.5 mg PO QHS 02/07/17 Budesonide/Formoterol Fumarate [Symbicort HFA 160-4.5 mcg Inhaler 6 gm] 2 puff IH Q12 02/07/17 Levothyroxine Sodium [Synthroid 0.075 mg Tablet] 0.075 mg PO DAILY 02/07/17 Lisinopril [Prinivil] 20 mg PO DAILY 02/07/17 Tiotropium [place] [Spiriva Respimat] 2 puff IH DAILY 02/07/17 Clopidogrel Bisulfate [Clopidogrel] 75 mg PO DAILY 02/11/17 Rosuvastatin Calcium 20 mg PO DAILY 02/11/17 Cyanocobalamin/Folic Acid [Vitamin B-12 & Folic Acid Tablet] 1 each PO DAILY # 30 tablet 02/12/17 Ferrous Sulfate [Feosol 325 mg Tablet] 325 mg PO DAILY #30 tablet 02/12/17 Thiamine HCl [Thiamine 100 mg Tablet] 100 mg PO DAILY #30 tablet 02/12/17 Calcium Carbonate/Vitamin D3 [Calcium 500 + Vit D Caplet] 1 tab PO BID 02/21/17 Oxycodone HCl/Acetaminophen [Oxycodon-Acetaminophen 7.5-325] 1 tab PO Q6HP PRN 02/21/17 Allergies/Adverse Reactions: No Known Allergies Allergy (Verified 03/07/17 17:21) Review of Systems ROS unobtainable: Due to mental status - Unobtainable Physical Exam Vital Signs: Temp Pulse Resp BP Pulse Ox 19 115/67 98 03/11/17 04:00 03/11/17 04:00 03/11/17 04:00 General appearance: PRESENT: disheveled, mild distress, thin. ABSENT: cooperative Head exam: PRESENT: atraumatic, normocephalic Eye exam: PRESENT: conjunctiva pink, EOMI, PERRLA. ABSENT: scleral icterus Ear exam: PRESENT: normal external ear exam Mouth exam: PRESENT: moist, tongue midline Neck exam: ABSENT: carotid bruit, JVD, lymphadenopathy, thyromegaly Respiratory exam: PRESENT: clear to auscultation trudy, crackles, decreased breath sounds, prolonged expiratory phas, retraction. ABSENT: rales, rhonchi, wheezes Pulses: PRESENT: normal dorsalis pedis pul Vascular exam: PRESENT: normal capillary refill GI/Abdominal exam: PRESENT: normal bowel sounds, soft. ABSENT: distended, guarding, mass, organolmegaly, rebound, tenderness Rectal exam: PRESENT: deferred Extremities exam: PRESENT: full ROM. ABSENT: calf tenderness, clubbing, pedal edema Neurological exam: PRESENT: altered Psychiatric exam: PRESENT: flat affect Skin exam: PRESENT: other - Skin tears and ecchymosis all 4 extremities Results Impressions: Chest X-Ray 03/10/17 23:00 IMPRESSION: Increasing airspace markings in the left lung base. Similar small left pleural effusion. Right lung appears clear. Head CT 03/11/17 00:00 IMPRESSION: No acute findings. Assessment & Plan - Diagnosis (1) Encephalopathy acute Is this a current diagnosis for this admission?: YesPlan: Multifactorial secondary to opiate and benzodiazepine intoxication, hypercapnic respiratory failure. He is on BiPAP, Narcan as needed with consideration of flumazenil. (2) COPD exacerbation Is this a current diagnosis for this admission?: YesPlan: With hypercapnia he is placed on BiPAP with scheduled DuoNeb, flutter valve and incentive spirometry when mental status improves. Consider prednisone and antibiotics (3) Hyponatremia Is this a current diagnosis for this admission?: YesPlan: Patient presents with recurrent hypotonic, hypervolemic, hyponatremia secondary to excessive beer intake requiring fluid restriction and serial chemistries. Will order follow-up chemistries every 6 hours. - Time Time Spent: 50 to 70 Minutes - Inpatient Certification Medical Necessity: Need Close Monitoring Due to Risk of Patient Decompensation
[2017-03-11] MEDS ORDERED: ALBUTEROL SULFATE 0.083% NEB 2.5 MG/3 ML AMPUL NEB PRN (06:34)
[2017-03-11] MEDS ORDERED: GLUCAGON,HUMAN RECOMB 1 MG INJ SUBCUT PRN (06:34)
[2017-03-11] MEDS ORDERED: DEXTROSE 40% GEL 15 GM TUBE PO PRN ×2 (06:34)
[2017-03-11] MEDS ORDERED: DEXTROSE 50%-WATER 25 GM/50 ML DISP.SYRIN IV PRN ×2 (06:34)
[2017-03-11] MEDS ORDERED: ACETAMINOPHEN 325 MG TABLET PO PRN ×2 (06:34→07:36)
[2017-03-11 07:12] LABS: ARTERIAL BLOOD BASE EXCESS 11.7 mmol/L; ARTERIAL BLOOD O2 SATURATION 94.9 % (94-98)
[2017-03-11 07:20] LABS: HEMATOCRIT 31.4 % (37.9-51.0); HEMOGLOBIN 9.8 g/dL (13.5-17.0); MEAN CORPUSCULAR HEMOGLOBIN 27.9 pg (27.0-33.4); MEAN CORPUSCULAR HGB CONC 31.1 g/dL (32.0-36.0); MEAN CORPUSCULAR VOLUME 90 fl (80-97); RED BLOOD COUNT 3.51 10^6/uL (4.35-5.55); RED CELL DISTRIBUTION WIDTH 17.7 % (11.5-14.0); WHITE BLOOD COUNT 8.3 10^3/uL (4.0-10.5)
[2017-03-11 07:37] LABS: ALANINE AMINOTRANSFERASE 33 U/L (21-72); ALKALINE PHOSPHATASE 75 U/L (38-126); ASPARTATE AMINO TRANSFERASE 17 U/L (17-59); BILIRUBIN,DIRECT 0.3 mg/dL (0.0-0.4); BILIRUBIN,TOTAL 0.5 mg/dL (0.2-1.3); MAGNESIUM 1.9 mg/dL (1.6-2.3); PHOSPHORUS 4.6 mg/dL (2.5-4.5); TOTAL PROTEIN 5.8 g/dL (6.3-8.2)
[2017-03-11 07:48] LABS: ANISOCYTOSIS 2+; BASOPHILS % (MANUAL) 0 % (0-2); EOSINOPHILS % (MANUAL) 0 % (0-6); HYPOCHROMASIA 1+; LYMPHOCYTES % (MANUAL) 4 % (13-45); OVALOCYTES 1+; POIKILOCYTOSIS 1+; STOMATOCYTES SLIGHT; TOTAL CELLS COUNTED 100; TOXIC GRANULATION SLIGHT
[2017-03-11 07:49] LABS: TOXIC VACUOLATION PRESENT
[2017-03-11] MEDS ORDERED: IPRATROPIUM/ALBUTEROL 0.5-2.5 MG/3 ML AMPUL NEB SCH (08:00)
[2017-03-11 08:10] VITALS: BP 136/63
[2017-03-11 08:11] LABS: BLOOD UREA NITROGEN 4 mg/dL (7-20); CALCIUM 8.4 mg/dL (8.4-10.2); CHLORIDE 82 mmol/L (98-107); GLUCOSE 119 mg/dL (75-110); POTASSIUM 4.3 mmol/L (3.6-5.0); SODIUM 125.2 mmol/L (137-145)
[2017-03-11 08:17] LABS: ANION GAP 5 (5-19); CARBON DIOXIDE 38 mmol/L (22-30)
--- NOTE | 2017-03-11 08:42 | EKG REPORT ---
SEVERITY:- ABNORMAL ECG - SINUS RHYTHM CONSIDER LEFT VENTRICULAR HYPERTROPHY : Confirmed by: Renee Gill 11-Mar-2017 08:40:33
[2017-03-11] MEDS ORDERED: LEVOFLOXACIN 750 MG/D5W RTU 150 ML IV SCH (10:00)
[2017-03-11] MEDS ORDERED: HEPARIN SOD (PORCINE) 5,000 UNIT/ML 1 ML SYRINGE SUBCUT SCH (14:00)
[2017-03-11] MEDS ORDERED: METHYLPREDNISOLONE INJ 40 MG/1 ML SDV IV SCH (14:00)
--- NOTE | 2017-03-11 14:32 | Physician Advisory Note ---
Physician Advisor ProgressNote .: Pursuant to the plan for [facility], I have reviewed the medical record for this patient. Physician Advisor Statement: Please consider documentin. "chronic hypercarbic respiratory failure" 2. "underweight with protein-calorie malnutrition [state mild, mod, or severe] with BMI 17.9, BUN 3, Cr 0.4, alcoholism, ____[?wt loss, ?appetite loss, ]" [if possible, give specifics on intake, wt loss, loss of SQ fat & muscle mass, diminished hand bryologist strength, & clinical importance such as (A) nutritional assessment ordered, (B) modified diet or supplements ordered, (C) additional labs ordered, (D) prolonged wound healing time, (E) delayed infxn clearance] Status discussion: 61yo severe alcoholic w/heavy intake, tobacco abuse, opiate/benzo abuse/ dependence, noncompliance, ataxia, borderline personality d/o, COPD, asthma, HTN , HLD, CAD w/prior NH, prior PTX w/rib fx.s 2015, repeated ED trips appx q2 days due to AMS/hyponatremia/intoxication, recently left AMA Brought back in by EMS due to neighbor finding him in yard not moving, w/ hypoxemia & SOB per EMS, smelling like beer, "obtunded", not answering ?s or following most commends, mild resp distess, wheezing, crackles, decreased breath sounds, prolonged expirations, retractions, new peaked T waves. Given nebs, Bipap. HR 94, RR19, sat 94% on __L O2, WBC 11.7, Hgb 10.6, Na 126.3, bicarb 40, BUN 3, Cr 0.4, CT head = no acute findings, UDS (+) op/benzos. Attending ordered NPO (likely given mental status), continued BIpap, prn Narcan/ flumazanil, Duonebs, flutter valve, Incentive spirometry, considering prednisone /abx, fluid restriction w/followup chemistries q6h. Pt's tachycardia continued until 1st MN, then developed mild tachypnea w/ hypoxemia in the 80s despite Bipap. Nursing notes indicate pt was using accessory muscles to breathe at 05:26 this AM despite continued Bipap. Attending ordered IV Levaquin & Solumedrol q8h. Clearly, pt not clinically improved enough for safe d/c, & the only reason he didn't stay a 2nd MN was due to leaving AMA, which could not be necessarily expected at time of admission. Appropriate for INpt status, unfortunately left AMA after 1MN of care so will likely have a worse outcome, high risk for further morbidity & mortality. CK
--- NOTE | 2017-03-11 19:40 | PDOC DISCHARGE SUMMARY ---
General - Admit/Disc Date/PCP Admission Date/Primary Care Provider: 03/11/17 06:34 Discharge Date: 03/11/17 - Discharge Diagnosis (1) Left against medical advice Is this a current diagnosis for this admission?: Yes (2) COPD exacerbation Is this a current diagnosis for this admission?: Yes (3) Hyponatremia Is this a current diagnosis for this admission?: Yes (4) Coronary atherosclerosis Is this a current diagnosis for this admission?: Yes (5) Acute and chronic respiratory failure with hypoxia Is this a current diagnosis for this admission?: Yes (6) Alcohol abuse Is this a current diagnosis for this admission?: Yes (7) COPD (chronic obstructive pulmonary disease) Is this a current diagnosis for this admission?: Yes - Additional Information Resuscitation Status: Do Not Resuscitate Home Medications: Albuterol Sulfate [Ventolin HFA MDI 18 GM] 2 puff IH Q4HP PRN 03/11/17 Ferrous Sulfate [Feosol 325 mg Tablet] 325 mg PO DAILY 03/11/17 Lisinopril [Prinivil] 20 mg PO DAILY 03/11/17 Oxycodone HCl/Acetaminophen [Percocet 7.5-325 mg Tablet] 1 tab PO Q6HP PRN 03/11 Thiamine HCl [Thiamine 100 mg Tablet] 100 mg PO DAILY 03/11/17 History of Present Illness History of Present Illness: LEIF NUÑEZ is a 61 year old male with past medical history of hyponatremia and alcohol abuse, COPD who presented after being found outside unconscious. Patient was positive for both opiates as well as benzodiazepines. Patient had received benzodiazepines the previous day in the prior to eloping. Patient reports that he took some pill and subsequently passed out. Patient did respond to Narcan. He was initially placed on BiPAP. Patient was improving and requested to leave AGAINST MEDICAL ADVICE. Patient was alert and oriented 3 and able to leave AGAINST MEDICAL ADVICE. Physical Exam Vital Signs: Temp Pulse Resp BP Pulse Ox 97.7 F 75 16 136/63 H 99 03/11/17 07:45 03/11/17 07:57 03/11/17 07:57 03/11/17 07:45 03/11/17 07:57 Intake & Output 03/10/17 03/11/17 03/12/17 06:59 06:59 06:59 Intake Total 0 Output Total 0 Balance 0 Results Laboratory Results: 03/11/17 07:01 03/11/17 07:01 03/11/17 03/11/17 03/11/17 06:50 07:01 07:01 WBC 8.3 RBC 3.51 L Hgb 9.8 L Hct 31.4 L MCV 90 MCH 27.9 MCHC 31.1 L RDW 17.7 H Plt Count 279 Seg Neutrophils % Not Reportable Lymphocytes % Not Reportable Monocytes % Not Reportable Eosinophils % Not Reportable Basophils % Not Reportable Absolute Neutrophils Not Reportable Absolute Lymphocytes Not Reportable Absolute Monocytes Not Reportable Absolute Eosinophils Not Reportable Absolute Basophils Not Reportable Carbonic Acid 2.02 H HCO3/H2CO3 Ratio 19:1 ABG pH 7.38 ABG pCO2 67.1 H ABG pO2 78.2 L ABG HCO3 39.1 H ABG O2 Saturation 94.9 ABG Base Excess 11.7 FiO2 30% Sodium Potassium Chloride Carbon Dioxide Anion Gap BUN Creatinine Est GFR ( Amer) Est GFR (Non-Af Amer) Glucose Calcium Phosphorus 4.6 H Magnesium 1.9 Total Bilirubin 0.5 AST 17 ALT 33 Alkaline Phosphatase 75 Total Protein 5.8 L Albumin 3.0 L 03/11/17 07:01 WBC RBC Hgb Hct MCV MCH MCHC RDW Plt Count Seg Neutrophils % Lymphocytes % Monocytes % Eosinophils % Basophils % Absolute Neutrophils Absolute Lymphocytes Absolute Monocytes Absolute Eosinophils Absolute Basophils Carbonic Acid HCO3/H2CO3 Ratio ABG pH ABG pCO2 ABG pO2 ABG HCO3 ABG O2 Saturation ABG Base Excess FiO2 Sodium 125.2 L Potassium 4.3 Chloride 82 L Carbon Dioxide 38 H Anion Gap 5 BUN 4 L Creatinine 0.40 L Est GFR ( Amer) > 60 Est GFR (Non-Af Amer) > 60 Glucose 119 H Calcium 8.4 Phosphorus Magnesium Total Bilirubin AST ALT Alkaline Phosphatase Total Protein Albumin Impressions: Chest X-Ray 03/10/17 23:00 IMPRESSION: Increasing airspace markings in the left lung base. Similar small left pleural effusion. Right lung appears clear. Head CT 03/11/17 00:00 IMPRESSION: No acute findings. Qualifiers PATEINT BEING DISCHARGED WITH ANY OF THE FOLLOWING DIAGNOSIS?: No Plan Time Spent: Less than 30 Minutes
== END 2017-03-11 11:40 | disposition left against medical advice (07) | DRG 190 ==
LOC: ER 22:45 → EH 03-11 03:01 → UNDOADMIN 03-11 03:01 → EH 03-11 04:48 → 3N 03-11 04:48
PROVIDERS: ADMIT Internal Medicine; ATTEND Internal Medicine
PROC: 5A09357 Assistance with Respiratory Ventilation, Less than 24 Consecutive Hours, Continuous Positive Airway Pressure (ICD-10-PCS; principal; 2017-03-11)
DX: J44.1 Chronic obstructive pulmonary disease with (acute) exacerbation (principal); J96.21 Acute and chronic respiratory failure with hypoxia; E87.1 Hypo-osmolality and hyponatremia; Z68.1 Body mass index [BMI] 19.9 or less, adult; I25.10 Atherosclerotic heart disease of native coronary artery without angina pectoris; F10.10 Alcohol abuse, uncomplicated; F32.9 Major depressive disorder, single episode, unspecified; M19.90 Unspecified osteoarthritis, unspecified site; Z79.899 Other long term (current) drug therapy; Z66 Do not resuscitate; I25.2 Old myocardial infarction; F17.200 Nicotine dependence, unspecified, uncomplicated
CPT/HCPCS: 36415; 51701; 70450; 71010; 80048; 80053; 80076; 80307; 82570; 82803; 83735; 83935; 84100; 84300; 85025; 93005; 93010; 94640; 94660; 96374; 99285; J1100; J2310; J3411; J7620

== ENCOUNTER 2017-03-11 15:54 | Emergency (ER) | payer MEDICARE, MEDICAID ==
[2017-03-11] MEDS ORDERED: IPRATROPIUM/ALBUTEROL 0.5-2.5 MG/3 ML AMPUL NEB ONE (16:08)
[2017-03-11] MEDS ORDERED: METHYLPREDNISOLONE INJ 125 MG/2 ML SDV IM ONE (16:08)
[2017-03-11] MEDS ORDERED: ALBUTEROL SULFATE 0.083% NEB 2.5 MG/3 ML AMPUL NEB ONE (16:08)
--- NOTE | 2017-03-11 16:17 | ER Document Report ---
ED Medical Screen (RME) - General Mode of Arrival: Wheelchair Information source: Patient TRAVEL OUTSIDE OF THE [place] IN LAST 30 DAYS: No - HPI Patient complains to provider of: arm pain, DB - General Chief Complaint: Shortness Of Breath Stated Complaint: LEFT ARM INJURY Time Seen by Provider: 03/11/17 16:08 - HPI Notes: 03/11/17 16:15 Patient is a 61-year-old male who presents to the emergency room requesting a dressing change to wound on his left forearm, he was actually admitted in the overnight hours and signed out AGAINST MEDICAL ADVICE around 2:00 this afternoon , only to return to the emergency room requesting a dressing change, he is noted to be hypoxic and tachypneic in the triage area and was brought back to internal waiting room, oxygen was placed on patient which he promptly removed stating he does not want it, he wants a dressing change performed immediately or he is leaving, he refuses to tell me what is wrong with his arm or how he injured it (CB GRADY) - Related Data Allergies/Adverse Reactions: No Known Allergies Allergy (Verified 03/11/17 16:06) Past Medical History - Past Medical History Cardiac Medical History: Reports: Hx Coronary Artery Disease, Hx Heart Attack - [place] occured in 2002. Takes ASA now, used to be on hypertensive medications, Hx Hypercholesterolemia, Hx Hypertension Pulmonary Medical History: Reports: Hx Asthma, Hx Bronchitis, Hx COPD, Hx Pneumonia Renal/ Medical History: Denies: Hx Peritoneal Dialysis Musculoskeltal Medical History: Reports Hx Arthritis, Reports Hx Musculoskeletal Deformity, Reports Hx Musculoskeletal Trauma Psychiatric Medical History: Reports: Hx Borderline Personality Disorder, Hx Depression Traumatic Medical History: Reports: Hx Fractures - Left rib fractures with pneumothorax requiring chest tube on 05/23/2016 Past Surgical History: Reports: Hx Cardiac Catheterization - Immunizations Immunizations up to date: Yes Hx Diphtheria, Pertussis, Tetanus Vaccination: - unknown Doctor's Discharge - Discharge Clinical Impression: COPD exacerbation, Arm abrasion Condition: Stable Disposition: AGAINST MEDICAL ADVICE Instructions: Abrasions ([facility]), Chronic Obstructive Lung Disease ([facility])
--- NOTE | 2017-03-11 17:10 | ER Document Report ---
ED General - General Mode of Arrival: Wheelchair Information source: Patient TRAVEL OUTSIDE OF THE [place] IN LAST 30 DAYS: No - General Chief Complaint: Shortness Of Breath Stated Complaint: LEFT ARM INJURY Time Seen by Provider: 03/11/17 16:08 Notes: 61-year-old male presents to the ED after after EMS was called by a local [facility] after the patient appeared to be bleeding from his left arm. Patient left AMA before being examined. (JASON LAMB) - Related Data Allergies/Adverse Reactions: No Known Allergies Allergy (Verified 03/11/17 16:06) Past Medical History - General Information source: Patient - Social History Smoking Status: Current Every Day Smoker Frequency of alcohol use: Heavy Drug Abuse: None Family History: Reviewed & Not Pertinent, Arthritis, CAD, COPD Patient has suicidal ideation: No Patient has homicidal ideation: No - Past Medical History Cardiac Medical History: Reports: Hx Coronary Artery Disease, Hx Heart Attack - [place] occured in 2002. Takes ASA now, used to be on hypertensive medications, Hx Hypercholesterolemia, Hx Hypertension Pulmonary Medical History: Reports: Hx Asthma, Hx Bronchitis, Hx COPD, Hx Pneumonia Renal/ Medical History: Denies: Hx Peritoneal Dialysis Musculoskeltal Medical History: Reports Hx Arthritis, Reports Hx Musculoskeletal Deformity, Reports Hx Musculoskeletal Trauma Psychiatric Medical History: Reports: Hx Borderline Personality Disorder, Hx Depression Traumatic Medical History: Reports: Hx Fractures - Left rib fractures with pneumothorax requiring chest tube on 05/23/2016 Past Surgical History: Reports: Hx Cardiac Catheterization - Immunizations Immunizations up to date: Yes Hx Diphtheria, Pertussis, Tetanus Vaccination: - unknown Hx Pneumococcal Vaccination: 02/22/13 Review of Systems - Review of Systems -: Yes ROS unobtainable due to patient's medical condition - Patient left AMA Course - Re-evaluation Re-evalutation: 03/11/17 Patient is a 61-year-old male well-known to this department. Patient with abrasions to his arms. Patient came in for difficulty breathing. Nebulizer treatment was ordered. Patient does not want me to examine him and he wants to leave. Patient will be signing out AGAINST MEDICAL ADVICE. Ambulates easily. ( ARTEMIO AVILES) - Vital Signs Vital signs: Temp Pulse Resp BP Pulse Ox 98.2 F 102 H 18 141/85 H 95 03/11/17 16:06 03/11/17 16:06 03/11/17 17:09 03/11/17 17:11 03/11/17 17:09 Discharge - Discharge Clinical Impression: COPD exacerbation Arm abrasion Qualifiers: Encounter type: initial encounter Laterality: left Qualified Code(s): S40.812A - Abrasion of left upper arm, initial encounter Condition: Stable Disposition: AGAINST MEDICAL ADVICE Instructions: Chronic Obstructive Lung Disease ([facility]), Abrasions ([facility]) Scribe Attestation: 03/11/17 23:16 I personally performed the services described in the documentation, reviewed and edited the documentation which was dictated to the scribe in my presence, and it accurately records my words and actions. (ARTEMIO AVILES) Scribe Documentation - Scribe Written by Scribe:: Fred Alvarez, 03/11/2017 [id number] acting as scribe for :: Jose
[2017-03-11 17:14] VITALS: BP 141/85
== END 2017-03-11 17:15 | disposition left against medical advice (07) ==
LOC: ER 15:54
DX: J44.1 Chronic obstructive pulmonary disease with (acute) exacerbation (principal); Z48.00 Encounter for change or removal of nonsurgical wound dressing; S50.812D Abrasion of left forearm, subsequent encounter; X58.XXXD Exposure to other specified factors, subsequent encounter; I25.10 Atherosclerotic heart disease of native coronary artery without angina pectoris; I25.2 Old myocardial infarction; I10 Essential (primary) hypertension; Z53.20 Procedure and treatment not carried out because of patient's decision for unspecified reasons
CPT/HCPCS: 94640 ×2; 99285; 96372; J2930; A9270 ×2; J7620

== ENCOUNTER 2017-03-12 01:52 | Inpatient (IN) | payer MEDICARE, MEDICAID ==
--- NOTE | 2017-03-12 03:06 | ER Document Report ---
ED General - General Stated Complaint: DIFFICULTY BREATHING Time Seen by Provider: 03/12/17 02:56 Notes: Patient is a 61-year-old male who is brought in by analgesics is found slumped over on his patient's porch. Patient himself can only answer a few questions. He is able to tell me that he is at the hospital. He is not able to answer any further questions and seems somnolent. I saw him yesterday. He was altered at that time and had hypercapnia. He was admitted. He was discharged this morning after improvement of his mental status and he signed out AGAINST MEDICAL ADVICE. History of chronic alcoholism. He does have a history of recurrent hyponatremia. No further history is obtainable at this time due to the patient's somnolence and altered mental status. TRAVEL OUTSIDE OF THE [place] IN LAST 30 DAYS: No - Related Data Allergies/Adverse Reactions: No Known Allergies Allergy (Verified 03/11/17 16:06) Past Medical History - Social History Smoking Status: Current Every Day Smoker Frequency of alcohol use: Heavy Drug Abuse: None Family History: Reviewed & Not Pertinent, Arthritis, CAD, COPD - Past Medical History Cardiac Medical History: Reports: Hx Coronary Artery Disease, Hx Heart Attack - [place] occured in 2002. Takes ASA now, used to be on hypertensive medications, Hx Hypercholesterolemia, Hx Hypertension Pulmonary Medical History: Reports: Hx Asthma, Hx Bronchitis, Hx COPD, Hx Pneumonia Renal/ Medical History: Denies: Hx Peritoneal Dialysis Musculoskeltal Medical History: Reports Hx Arthritis, Reports Hx Musculoskeletal Deformity, Reports Hx Musculoskeletal Trauma Psychiatric Medical History: Reports: Hx Borderline Personality Disorder, Hx Depression Traumatic Medical History: Reports: Hx Fractures - Left rib fractures with pneumothorax requiring chest tube on 05/23/2016 Past Surgical History: Reports: Hx Cardiac Catheterization - Immunizations Immunizations up to date: Yes Hx Diphtheria, Pertussis, Tetanus Vaccination: - unknown Hx Pneumococcal Vaccination: 02/22/13 Review of Systems - Review of Systems -: Yes ROS unobtainable due to patient's medical condition - Unobtainable due to altered mental status Physical Exam - Vital signs Vitals: Pulse Resp 82 18 03/12/17 03:03 03/12/17 03:03 - Notes Notes: General Appearance: Well nourished, somnolent, cooperative, mild acute distress , no obvious discomfort. Vitals: reviewed, See vital signs table. Head: no swelling or tenderness to the head Eyes: PERRL, EOMI, Conjuctiva clear Mouth: No decreasd moisture Neck: Supple, no neck tenderness, No thyromegaly Lungs: Mild scattered wheezing, No rales, No rhonci, No accessory muscle use, good air exchange bilaterally. Heart: Normal rate, Regular rythm, No murmur, no rub Abdomen: Normal BS, soft, No rigidity, No abdominal tenderness, No guarding, no rebound, no abdominal masses, no organomegaly Extremities: strength 5/5 in all extremities, good pulses in all extremities, no swelling or tenderness in the extremities, no edema. Skin: warm, dry, appropriate color, no rash Neuro: speech clear, oriented x 2, normal affect. Patient will not lift his arms or legs off the bed. He sits slumped forward in the bed. Question the answers when asked where he is at. Otherwise she is not answering any further my questions is slumped forward and turn off. Course - Vital Signs Vital signs: Temp Pulse Resp BP Pulse Ox 82 15 97 03/12/17 03:03 03/12/17 03:09 03/12/17 03:09 - Laboratory Result Diagrams: 03/12/17 04:42 03/12/17 04:42 Laboratory results interpreted by me: 03/12/17 03/12/17 03/12/17 04:42 04:42 04:42 RBC 3.30 L Hgb 9.4 L Hct 29.1 L RDW 18.2 H Seg Neutrophils % 78.8 H VBG pH 7.44 H VBG HCO3 38.5 H Sodium 126.6 L Chloride 84 L Carbon Dioxide 36 H BUN 3 L Creatinine 0.37 L Glucose 114 H - EKG Interpretation by Me Additional EKG results interpreted by me: 03/12/17 04:21 EKG is reviewed and interpreted by me. EKG shows normal sinus rhythm with a rate of [address] segment elevation or depression. No ischemic T-wave inversions. GA interval, QRS duration, QTc intervals are within normal range. Old EKG for comparison is from yesterday. - Transfer of Care Notes: 03/12/17 07:23 Between the patient off oxygen several times. Every time I attempt to wean off oxygen and his oxygen level does desaturate down to approximately 84-85% on room air while at rest. His lung lerner continue have some tightness some scattered rhonchi. He is not working very hard to breathe. I did try small amount of Narcan. Patient is awake and alert but still continues to be hypoxic on wean off oxygen. He has received magnesium. He did receive Solu-Medrol. He used several breathing treatments. I did speak with the hospitalist who agrees to admit the patient. Dictation of this chart was performed using voice recognition software; therefore, there may be some unintended grammatical errors. Discharge - Discharge Clinical Impression: COPD exacerbation Condition: Stable Disposition: ADMITTED INPATIENT Admitting Provider: Hospitalist Unit Admitted: [facility]
[2017-03-12 05:03] LABS: VENOUS BLOOD BASE EXCESS 12.3 mmol/L; VENOUS BLOOD HCO3 38.5 mmol/L (20-32); VENOUS BLOOD PCO2 58.5 mmHg (35-63); VENOUS BLOOD PH 7.44 (7.30-7.42)
[2017-03-12 05:05] LABS: ABSOLUTE LYMPHOCYTES (AUTO) 0.7 10^3/uL (0.5-4.7); ABSOLUTE MONOCYTES (AUTO) 0.4 10^3/uL (0.1-1.4); BASOPHILS % (AUTO) 0.5 % (0-2); EOSINOPHILS % (AUTO) 0.1 % (0-6); HEMATOCRIT 29.1 % (37.9-51.0); HEMOGLOBIN 9.4 g/dL (13.5-17.0); HGB HCT DIFFERENCE -0.9; MEAN CORPUSCULAR HEMOGLOBIN 28.5 pg (27.0-33.4); MEAN CORPUSCULAR HGB CONC 32.4 g/dL (32.0-36.0); MEAN CORPUSCULAR VOLUME 88 fl (80-97); MONOCYTES % (AUTO) 7.6 % (3-13); RED CELL DISTRIBUTION WIDTH 18.2 % (11.5-14.0); SEGMENTED NEUTROPHILS % (AUTO) 78.8 % (42-78); WHITE BLOOD COUNT 5.1 10^3/uL (4.0-10.5)
[2017-03-12] MEDS ORDERED: IPRATROPIUM/ALBUTEROL 0.5-2.5 MG/3 ML AMPUL NEB ONE (05:19)
[2017-03-12 05:21] LABS: ALCOHOL 15 mg/dL (NONE DETECTED); ANION GAP 7 (5-19); BLOOD UREA NITROGEN 3 mg/dL (7-20); CALCIUM 8.4 mg/dL (8.4-10.2); CARBON DIOXIDE 36 mmol/L (22-30); CHLORIDE 84 mmol/L (98-107); CREATININE RESULT 0.37 mg/dL (0.52-1.25); GLUCOSE 114 mg/dL (75-110); POTASSIUM 4.2 mmol/L (3.6-5.0); SODIUM 126.6 mmol/L (137-145)
[2017-03-12] MEDS ORDERED: NALOXONE HCL INJ/PF 0.4 MG/1 ML SDV IV ONE ×2 (05:24→08:30)
[2017-03-12] MEDS ORDERED: AMMONIA INHALANTS 10 AMPUL/BOX IH ONE (05:37)
[2017-03-12] MEDS ORDERED: METHYLPREDNISOLONE INJ 125 MG/2 ML SDV IV ONE (06:07)
--- NOTE | 2017-03-12 06:22 | RADIOLOGY REPORT (SQ) ---
EXAM DESCRIPTION: CHEST SINGLE VIEW COMPLETED DATE/TIME: 03/12/2017 6:07 am REASON FOR STUDY: dyspnea COMPARISON: 03/10/2017. EXAM PARAMETERS: NUMBER OF VIEWS: One view. TECHNIQUE: Single frontal radiographic view of the chest acquired. RADIATION DOSE: NA LIMITATIONS: None. FINDINGS: LUNGS AND PLEURA: Moderate interstitial markings. Small right basilar opacity -effusion. MEDIASTINUM AND HILAR STRUCTURES: No masses. Contour normal. HEART AND VASCULAR STRUCTURES: Heart normal in size. Atherosclerosis. BONES: Moderate disc desiccation. Chronic rib deformities of the left mid hemithorax. HARDWARE: None in the chest. OTHER: No other significant finding. IMPRESSION: Moderate interstitial markings and small right basilar opacity -effusion. Improved aera tion of the left lung base. TECHNICAL DOCUMENTATION: JOB ID: [id number]
[2017-03-12] MEDS: MAGNESIUM SULFATE/D5W 100 ML IV SCH ×2 (06:32→07:58)
[2017-03-12] MEDS ORDERED: ALBUTEROL SULFATE 0.083% NEB 2.5 MG/3 ML AMPUL NEB ONE (07:12)
[2017-03-12] MEDS ORDERED: ACETAMINOPHEN 325 MG TABLET PO PRN (07:36)
[2017-03-12] MEDS ORDERED: ALBUTEROL SULFATE 0.083% NEB 2.5 MG/3 ML AMPUL NEB PRN (07:36)
--- NOTE | 2017-03-12 07:51 | EKG REPORT ---
SEVERITY:- ABNORMAL ECG - SINUS RHYTHM PROBABLE LEFT VENTRICULAR HYPERTROPHY : Confirmed by: Renee Gill 12-Mar-2017 07:50:57
[2017-03-12] MEDS: IPRATROPIUM/ALBUTEROL 0.5-2.5 MG/3 ML AMPUL NEB SCH ×2 (08:21→14:11)
[2017-03-12] MEDS ORDERED: LEVOFLOXACIN 750 MG/D5W RTU 750 MG/150 ML RTUPB IV ONE (09:00)
[2017-03-12] MEDS ORDERED: GUAIFENESIN 600 MG TABLET.SA PO SCH (10:00)
[2017-03-12] MEDS ORDERED: FAMOTIDINE 20 MG TABLET PO SCH (10:00)
[2017-03-12] MEDS ORDERED: BUDESONIDE/FORMOTEROL 160-4.5 MCG 60 PUFF/6 GM MDI IH SCH (11:00)
[2017-03-12 11:49] LABS: CREATINE KINASE MB 3.46 ng/mL (<4.55)
[2017-03-12 11:57] LABS: TROPONIN I < 0.012 ng/mL
[2017-03-12] MEDS ORDERED: FUROSEMIDE INJ/PF 20 MG/2 ML SDV IV ONE (12:00)
--- NOTE | 2017-03-12 12:35 | XCELERA REPORT ---
[address] [address] Transthoracic Echocardiogram Report Name: LEIF NUÑEZ Age: 61 yrs Gender: Male : 1955 Patient Status: Inpatient Patient Location: [id number]\S\319\S\A Study Date: 03/12/2017 11:36 AM Height: 66 in Weight: 116 lb BSA: 1.6 m2 Procedure: A two-dimensional transthoracic echocardiogram with color flow and Doppler was performed. The study was technically difficult with many images being suboptimal in quality. Study Quality: Technically suboptimal. Reason For Study: MR acute History: MR acute. Ordering Physician: CHE BOWERS Performed By: Asher Brownlee Interpretation Summary Study Quality: Technically suboptimal. The study was technically difficult with many images being suboptimal in quality. The left ventricle is normal in size. There is normal left ventricular wall thickness. LV EF is > than65% Left ventricular systolic function is normal. Doppler measurements suggest normal left ventricular diastolic function The right ventricle is grossly normal size. The left atrial size is normal. There is no evidence of mitral valve prolapse. There is no vegetation seen on the mitral valve. There is no mitral valve stenosis. MR jet directed to the atrial septum.Probably only mild , but cannot entirely rule out the poossibility that this is a mild to moderate eccentric MR jet directed towards the atrial septum. There is no aortic valve stenosis There is no LVOT obstruction. No aortic regurgitation is present. There is no tricuspid stenosis. There is a mild amount of tricuspid regurgitation RVSP is 27 mm of Hg , with RA mean of 5. There is no pericardial effusion. MMode/2D Measurements \T\ Calculations RVDd: 2.2 cm LVIDd: 5.7 cm FS: 40.9 % Ao root diam: 3.6 cm IVSd: 0.77 cm LVIDs: 3.4 cm EDV(Teich): 158.8 ml LVPWd: 0.81 cm ESV(Teich): 45.9 ml Ao root area: 10.3 cm2 EF(Teich): 71.1 % LA dimension: 3.7 cm Doppler Measurements \T\ Calculations MV E max yanelis: MV P1/2t max yanelis: Ao V2 max: LV V1 max P.2 cm/sec 104.7 cm/sec 163.3 cm/sec 5.2 mmHg MV A max yanelis: MV P1/2t: 61.8 msec Ao max PG: LV V1 max: 85.0 cm/sec 10.7 mmHg 113.5 cm/sec MV E/A: 1.2 MVA(P1/2t): 3.6 cm2 MV dec slope: 496.3 cm/sec2 PA V2 max: TR max yanelis: 88.8 cm/sec 233.1 cm/sec PA max PG: TR max P.2 mmHg 3.2 mmHg Left Ventricle The left ventricle is normal in size. There is normal left ventricular wall thickness. LV EF is > than65%. Left ventricular systolic function is normal. Doppler measurements suggest normal left ventricular diastolic function. The left ventricular wall motion is normal. There is no thrombus. Right Ventricle The right ventricle is grossly normal size. Atria The right atrium is normal. The left atrial size is normal. Mitral Valve There is no evidence of mitral valve prolapse. There is no vegetation seen on the mitral valve. There is no mitral valve stenosis. MR jet directed to the atrial septum.Probably only mild , but cannot entirely rule out the poossibility that this is a mild to moderate eccentric MR jet directed towards the atrial septum. Aortic Valve There is no aortic valvular vegetation. There is no aortic valve stenosis. There is no LVOT obstruction. No aortic regurgitation is present. Tricuspid Valve There is no tricuspid stenosis. There is a mild amount of tricuspid regurgitation. Right ventricular systolic pressure is normal. RVSP is 27 mm of Hg , with RA mean of 5. Pulmonic Valve There is no pulmonic valvular stenosis. There is no pulmonic valvular regurgitation. Great Vessels The aortic root is not well visualized. Effusions There is no pericardial effusion. : CHE BOWERS > Sruthi Rivas
[2017-03-12 13:33] LABS: URINE BARBITURATES SCREEN NEGATIVE; URINE METHADONE SCREEN NEGATIVE; URINE OPIATES LOW NEGATIVE; URINE PHENCYCLIDINE SCREEN NEGATIVE
[2017-03-12] MEDS ORDERED: METHYLPREDNISOLONE INJ 40 MG/1 ML SDV IV SCH (14:00)
[2017-03-12] MEDS ORDERED: HEPARIN SOD (PORCINE) 5,000 UNIT/ML 1 ML SYRINGE SUBCUT SCH (14:00)
[2017-03-12 14:21] LABS: TROPONIN I < 0.012 ng/mL
[2017-03-12 15:59] VITALS: BP 110/65
--- NOTE | 2017-03-12 18:28 | H&P/Discharge Summary ---
Discharge Summary Admission Date/PCP: 03/12/17 07:36 Discharge Date: 03/12/17 - Against Medical advice Resuscitation Status: Do Not Resuscitate - Discharge Diagnosis (1) Left against medical advice Is this a current diagnosis for this admission?: Yes (2) COPD exacerbation Is this a current diagnosis for this admission?: Yes (3) Hyponatremia Is this a current diagnosis for this admission?: Yes (4) Acute and chronic respiratory failure with hypoxia Is this a current diagnosis for this admission?: Yes (5) Alcohol abuse Is this a current diagnosis for this admission?: Yes (6) Medically noncompliant Is this a current diagnosis for this admission?: Yes (7) Tobacco abuse Is this a current diagnosis for this admission?: Yes Home Medications: Albuterol Sulfate [Ventolin HFA MDI 18 GM] 2 puff IH Q4HP PRN 03/12/17 Alprazolam [Xanax 0.5 mg Tablet] 0.5 mg PO QHS 03/12/17 Budesonide/Formoterol Fumarate [Symbicort Hfa 160-4.5 Mcg Inhaler 6 gm] 2 puff IH Q12 03/12/17 Calcium Carbonate/Vitamin D3 [Calcium 500 + Vit D Caplet] 1 each PO BID Clopidogrel Bisulfate [Plavix 75 mg Tablet] 75 mg PO DAILY 03/12/17 Cyanocobalamin/Folic Acid [Vitamin B-12 & Folic Acid Tablet] 1 each PO DAILY Ferrous Sulfate [Feosol 325 mg Tablet] 325 mg PO DAILY 03/12/17 Levothyroxine Sodium [Synthroid 0.075 mg Tablet] 0.075 mg PO DAILY 03/12/17 Lisinopril [Prinivil] 20 mg PO DAILY 03/12/17 Oxycodone HCl/Acetaminophen [Percocet 7.5-325 mg Tablet] 1 each PO Q6HP PRN Rosuvastatin Calcium [Crestor 20 mg Tablet] 20 mg PO DAILY 03/12/17 Thiamine HCl [Thiamine 100 mg Tablet] 100 mg PO DAILY 03/12/17 Tiotropium Telferner [Spiriva Respimat] 2 puff IH DAILY 03/12/17 Allergies/Adverse Reactions: No Known Allergies Allergy (Verified 03/11/17 16:06) History of Present Illness Admission Date/PCP: 03/12/17 07:36 History of Present Illness: Who is well-known to our service for multi-weekly admissions and elopements re- presented for the third time and is many days to our service for COPD exacerbation. Patient was placed on oxygen and given nebulized treatments Solu- Medrol Levaquin and noted to have a more pronounced heart murmur. Patient echocardiogram which did not reveal anything acutely abnormal with his valve. Patient was awake alert and oriented and apparently elected to leave AGAINST MEDICAL ADVICE. Past Medical History Cardiac Medical History: Reports: Coronary Artery Disease, Myocardial Infarction - [place] occured in 2002. Takes ASA now, used to be on hypertensive medications, Hyperlipidema, Hypertension Pulmonary Medical History: Reports: Asthma, Bronchitis, Chronic Obstructive Pulmonary Disease (COPD), Pneumonia Musculoskeltal Medical History: Reports: Arthritis Psychiatric Medical History: Reports: Depression Past Surgical History Past Surgical History: Reports: Cardiac Catheterization Social History Smoking Status: Current Every Day Smoker Frequency of Alcohol Use: Heavy Hx Recreational Drug Use: No Drugs: None Hx Prescription Drug Abuse: Yes - Opiate and benzodiazepine Family History Family History: Reviewed & Not Pertinent, Arthritis, CAD, COPD Parental Family History Reviewed: No Children Family History Reviewed: No Sibling(s) Family History Reviewed.: No Review of Systems Constitutional: ABSENT: chills, fever(s), headache(s), weight gain, weight loss Eyes: ABSENT: visual disturbances Ears: ABSENT: hearing changes Cardiovascular: ABSENT: chest pain, dyspnea on exertion, edema, orthropnea, palpitations Respiratory: PRESENT: cough, dyspnea. ABSENT: hemoptysis Gastrointestinal: ABSENT: abdominal pain, constipation, diarrhea, hematemesis, hematochezia, nausea, vomiting Genitourinary: ABSENT: dysuria, hematuria Musculoskeletal: ABSENT: joint swelling Integumentary: ABSENT: rash, wounds Neurological: PRESENT: frequent falls. ABSENT: abnormal gait, abnormal speech, confusion, dizziness, focal weakness, syncope Psychiatric: ABSENT: anxiety, depression, homidical ideation, suicidal ideation Endocrine: ABSENT: cold intolerance, heat intolerance, polydipsia, polyuria Hematologic/Lymphatic: ABSENT: easy bleeding, easy bruising Physical Exam Vital Signs: Temp Pulse Resp BP Pulse Ox 98.4 F 95 19 110/65 100 03/12/17 15:21 03/12/17 15:21 03/12/17 15:21 03/12/17 15:21 03/12/17 15:21 Pulse Oximeter Continuous Start: 03/12/17 07: 36 Freq: RTQ4 Status: Complete Document 03/12/17 07:48 [facility] (Rec: 03/12/17 07:49 [facility] [email or web address]) Pulse Oximetry Assessment Oxygen Saturation (92-100) 97 Oxygen Delivery Method Nasal Cannula Fraction of Inspired Oxygen (FIO2) 2 Equipment Usage Equipment Standby Continuous SpO2 Machine # - Intake & Output 03/11/17 03/12/17 03/13/17 06:59 06:59 06:59 Intake Total 473 Output Total 800 Balance -327 Weight 52.9 kg General appearance: PRESENT: mild distress, well-developed, well-nourished Head exam: PRESENT: atraumatic, normocephalic Eye exam: PRESENT: conjunctiva pink, EOMI, PERRLA. ABSENT: scleral icterus Ear exam: PRESENT: normal external ear exam Mouth exam: PRESENT: moist, tongue midline Neck exam: PRESENT: JVD. ABSENT: lymphadenopathy, tracheal deviation Respiratory exam: PRESENT: rales, unlabored. ABSENT: rhonchi, wheezes Cardiovascular exam: PRESENT: diastolic murmur - 3/6, RRR. ABSENT: rubs, systolic murmur Vascular exam: PRESENT: normal capillary refill GI/Abdominal exam: PRESENT: normal bowel sounds, soft. ABSENT: distended, guarding, mass, organolmegaly, rebound, tenderness Rectal exam: PRESENT: deferred Extremities exam: PRESENT: clubbing, +2 edema Neurological exam: PRESENT: alert, awake, oriented to person, oriented to place , oriented to time, oriented to situation, CN II-XII grossly intact. ABSENT: motor sensory deficit Psychiatric exam: PRESENT: flat affect, normal mood. ABSENT: homicidal ideation , suicidal ideation Skin exam: PRESENT: dry, warm. ABSENT: cyanosis, intact - Skin tears present, rash Results Laboratory Results: 03/12/17 03/12/17 13:12 13:12 Creatine Kinase 29 L CK-MB (CK-2) 2.00 Troponin I < 0.012 Impressions: Chest X-Ray 03/12/17 05:23 IMPRESSION: Moderate interstitial markings and small right basilar opacity - effusion. Improved aeration of the left lung base. Qualifiers PATEINT BEING DISCHARGED WITH ANY OF THE FOLLOWING DIAGNOSIS?: No Assessment & Plan - Time Time Spent: 30 to 50 Minutes Medications reviewed and adjusted accordingly: Yes Anticipated dischagre: Other - AGAINST MEDICAL ADVICE
[2017-03-12] MEDS ORDERED: ATORVASTATIN CALCIUM 40 MG TABLET PO SCH (22:00)
--- NOTE | 2017-03-12 23:41 | EKG REPORT ---
SEVERITY:- ABNORMAL ECG - SINUS RHYTHM CONSIDER LEFT VENTRICULAR HYPERTROPHY : Confirmed by: Renee Gill 12-Mar-2017 23:41:03
[2017-03-13] MEDS ORDERED: (PENDING PHARMACY ID) (Lisinopril [Prinivil] 20 MG) PO SCH (10:00)
[2017-03-13] MEDS ORDERED: (PENDING PHARMACY ID) (Tiotropium Bromide [Spiriva Respimat] 2 PUFF) IH SCH ×2 (10:00)
[2017-03-13] MEDS ORDERED: THIAMINE HCL 100 MG TABLET PO SCH (10:00)
[2017-03-13] MEDS ORDERED: LEVOTHYROXINE SODIUM 0.075 MG TABLET PO SCH (10:00)
[2017-03-13] MEDS ORDERED: FOLIC ACID PO SCH (10:00)
[2017-03-13] MEDS ORDERED: LEVOFLOXACIN 750 MG/D5W RTU 750 MG/150 ML RTUPB IV SCH (10:00)
[2017-03-13] MEDS ORDERED: LISINOPRIL 10 MG TABLET PO SCH (10:00)
[2017-03-13] MEDS ORDERED: CLOPIDOGREL BISULFATE 75 MG TABLET PO SCH (10:00)
[2017-03-13] MEDS ORDERED: (PENDING PHARMACY ID) (Rosuvastatin Calcium [Crestor 20 Mg Tablet] 20 MG) PO SCH (10:00)
[2017-03-13] MEDS ORDERED: CYANOCOBALAMIN PO SCH (10:00)
[2017-03-13] MEDS ORDERED: FERROUS SULFATE 325 MG TABLET PO SCH (10:00)
[2017-03-13] MEDS ORDERED: [UNRECOGNIZED DRUG - OTHER] PO SCH (10:00)
[2017-03-13] MEDS ORDERED: CYANOCOBALAMIN/FA/PYRIDOXINE TABLET PO SCH (10:00)
== END 2017-03-12 16:50 | disposition left against medical advice (07) | DRG 190 ==
LOC: ER 01:52 → EH 07:36 → UNDOADMIN 07:37 → 3W 09:32
PROVIDERS: ADMIT Family Medicine; ATTEND Family Medicine
PROC: 5A09357 Assistance with Respiratory Ventilation, Less than 24 Consecutive Hours, Continuous Positive Airway Pressure (ICD-10-PCS; principal; 2017-03-12)
PROC: 3E0F73Z Introduction of Anti-inflammatory into Respiratory Tract, Via Natural or Artificial Opening (ICD-10-PCS; 2017-03-12)
DX: J44.1 Chronic obstructive pulmonary disease with (acute) exacerbation (principal); J96.21 Acute and chronic respiratory failure with hypoxia; E87.1 Hypo-osmolality and hyponatremia; F10.10 Alcohol abuse, uncomplicated; I11.0 Hypertensive heart disease with heart failure; M19.90 Unspecified osteoarthritis, unspecified site; F32.9 Major depressive disorder, single episode, unspecified; F17.210 Nicotine dependence, cigarettes, uncomplicated; F60.3 Borderline personality disorder; I25.10 Atherosclerotic heart disease of native coronary artery without angina pectoris; I25.2 Old myocardial infarction; Z91.14 Patient's other noncompliance with medication regimen; Z79.899 Other long term (current) drug therapy; Z82.61 Family history of arthritis; Z82.49 Family history of ischemic heart disease and other diseases of the circulatory system
CPT/HCPCS: 36415; 71010; 80048; 80307; 82550; 82553; 82803; 83735; 84443; 84484; 85025; 93005; 93010; 93306; 94640; 94660; 96365; 96375; 99285; J1940; J1956; J2310; J2930; J3475; J3490; J7620

== ENCOUNTER 2017-03-14 18:46 | Inpatient (IN) | payer MEDICARE, MEDICAID ==
--- NOTE | 2017-03-14 19:20 | ER Document Report ---
ED General - General Chief Complaint: Shortness Of Breath Stated Complaint: SHORTNESS OF BREATH Time Seen by Provider: 03/14/17 19:06 Notes: Patient is a 61 year old male that comes to the ED for chief complaint of shortness of breath and hypotension, he is currently incarcerated, comes with a [employer] escort. Patient with no complaints at bedside, however patient also is not answering any questions. Patient has a history of chronic respiratory failure, COPD, hypertension, CAD with history of [place], and he was discharged from this facility 2 days ago. Patient also has a history of chronic opioid use and alcoholism. TRAVEL OUTSIDE OF THE [place] IN LAST 30 DAYS: No - Related Data Allergies/Adverse Reactions: No Known Allergies Allergy (Verified 03/11/17 16:06) Past Medical History - General Information source: Law Enforcement - Social History Smoking Status: Former Smoker Frequency of alcohol use: Heavy Lives with: Other Family History: Reviewed & Not Pertinent, Arthritis, CAD, COPD - Past Medical History Cardiac Medical History: Reports: Hx Coronary Artery Disease, Hx Heart Attack - [place] occured in 2002. Takes ASA now, used to be on hypertensive medications, Hx Hypercholesterolemia, Hx Hypertension Pulmonary Medical History: Reports: Hx Asthma, Hx Bronchitis, Hx COPD, Hx Pneumonia Renal/ Medical History: Denies: Hx Peritoneal Dialysis Musculoskeltal Medical History: Reports Hx Arthritis, Reports Hx Musculoskeletal Deformity, Reports Hx Musculoskeletal Trauma Psychiatric Medical History: Reports: Hx Borderline Personality Disorder, Hx Depression Traumatic Medical History: Reports: Hx Fractures - Left rib fractures with pneumothorax requiring chest tube on 05/23/2016 Past Surgical History: Reports: Hx Cardiac Catheterization - Immunizations Immunizations up to date: Yes Hx Diphtheria, Pertussis, Tetanus Vaccination: - unknown Hx Pneumococcal Vaccination: 02/22/13 Review of Systems - Review of Systems Constitutional: No symptoms reported EENT: No symptoms reported Cardiovascular: No symptoms reported Respiratory: See HPI Gastrointestinal: No symptoms reported Genitourinary: No symptoms reported Male Genitourinary: No symptoms reported Musculoskeletal: No symptoms reported Skin: No symptoms reported Hematologic/Lymphatic: No symptoms reported Neurological/Psychological: See HPI Physical Exam - Vital signs Vitals: Temp Pulse Resp BP Pulse Ox 98.0 F 67 16 137/64 H 98 03/14/17 18:51 03/14/17 18:51 03/14/17 18:51 03/14/17 18:51 03/14/17 18:51 - General General appearance: Other - patient drowsy, staring straight ahead, does look at me but responds sluggishly to any directions; he is not verbally responsive at this time - HEENT Head: Normocephalic, Atraumatic Eyes: Normal Conjunctiva: Normal Extraocular movements intact: Yes Eyelashes: Normal Pupils: Pinpoint Mouth/Lips: Normal Mucous membranes: Normal Pharynx: Normal Neck: Normal - Respiratory Breath sounds: Decreased air movement, Other - a few coarse rhonchi - Cardiovascular Rhythm: Regular Heart sounds: Normal auscultation, S1 appreciated, S2 appreciated Murmur: Yes - 09/21 - Abdominal Inspection: Normal Tenderness: Nontender - Back Back: Normal, Nontender - Extremities General upper extremity: Normal inspection, Nontender, Normal ROM, Normal strength General lower extremity: Normal inspection, Nontender, Normal ROM, Normal strength - Neurological Neuro grossly intact: Yes Cognition: Normal Orientation: AAOx4 Carmi Coma Scale Eye Opening: Spontaneous Federico Coma Scale Verbal: Oriented Federico Coma Scale Motor: Obeys Commands Carmi Coma Scale Total: 15 Speech: Normal Motor strength normal: LUE, RUE, LLE, RLE Sensory: Normal - Skin Skin Temperature: Warm Skin Moisture: Dry Skin Color: Normal Course - Re-evaluation Re-evalutation: Chest x-ray is unremarkable, patient is not hypoxic on nasal cannula, however patient is lethargic and minimally responsive. CAT scan of the head unremarkable, chest x-ray unremarkable, CBC had to be redrawn and there was a delay with this, chemistry generally unremarkable except for elevated CK-MB which is nonspecific. Troponin unremarkable. Venous blood gas showing hypercabia. Patient was placed on Bipap. Discussed with Dr. Art. Patient is more alert and conversational now. Discussed with Dr. Scott, recommends patient have a repeated ckmb/troponin, these are due now. Patient became more alert, angry, demanding bipap be taken off, appeared to be holding his breath. Attempted to discuss with patient, he did acknowledge his situation ([employer] escort, at hospital after confusion, improved after bipap and did not recommend this be taken off). Patient talking angrily and then became hypoxic, stopped responding and appeared to sleep. Given magnesium, solu medrol , 6 ml duoneb, increased PEEP on bipap, Dr. Vera to bedside. Recommends patient is still DNR, does not recommend intubation. 03/15/17 03:21 Attempted to call family due to decompensation, Kathleen Michaels, however no answer and voicemail not set up. Patient responding well to treatments, hypoxia resolved. - Vital Signs Vital signs: Temp Pulse Resp BP Pulse Ox 98.0 F 70 16 127/71 H 100 03/14/17 19:00 03/14/17 19:00 03/15/17 04:25 03/15/17 04:00 03/15/17 04:25 - Laboratory Result Diagrams: 03/14/17 22:30 03/14/17 20:37 Laboratory results interpreted by me: 03/14/17 03/14/17 03/14/17 20:37 20:37 20:37 RBC Hgb Hct MCHC RDW Monocytes % (Manual) VBG pCO2 74.8 H* VBG HCO3 36.6 H Sodium 122.0 L Chloride 79 L Carbon Dioxide 33 H Creatinine 0.51 L Calcium 8.3 L CK-MB (CK-2) 11.10 H Salicylates < 1.0 L Acetaminophen < 10 L 03/14/17 03/15/17 22:30 01:38 RBC 4.01 L Hgb 11.1 L Hct 35.3 L MCHC 31.6 L RDW 17.6 H Monocytes % (Manual) 21 H VBG pCO2 VBG HCO3 Sodium Chloride Carbon Dioxide Creatinine Calcium CK-MB (CK-2) 7.19 H Salicylates Acetaminophen Critical Care Note - Critical Care Note Total time excluding time spent on procedures (mins): 40 - acute on chronic respiratory failure Comments: Please allow 40 minutes of critical care time for treatment of patient with altered mental status secondary to acute on chronic respiratory failure with hypercarbia, requiring BiPAP therapy, treatment with duo nebs, magnesium, Solu- Medrol, multiple re-evaluations, consultation and admission to the hospital. Discharge - Discharge Clinical Impression: Acute and chronic respiratory failure Qualifiers: Respiratory failure complication: hypoxia and hypercapnia Qualified Code(s): J96.21 - Acute and chronic respiratory failure with hypoxia Condition: Serious Disposition: ADMITTED INPATIENT Admitting Provider: Hospitalist Unit Admitted: [facility]
[2017-03-14] MEDS ORDERED: THIAMINE HCL 100 MG in NORMAL SALINE 50 ML IV ONE (20:51)
[2017-03-14 20:52] LABS: VENOUS BLOOD BASE EXCESS 7.7 mmol/L; VENOUS BLOOD HCO3 36.6 mmol/L (20-32); VENOUS BLOOD PH 7.31 (7.30-7.42)
[2017-03-14 20:55] LABS: VENOUS BLOOD PCO2 74.8 mmHg (35-63)
--- NOTE | 2017-03-14 21:17 | RADIOLOGY REPORT (SQ) ---
EXAM DESCRIPTION: CT HEAD WITHOUT COMPLETED DATE/TIME: 03/14/2017 9:07 pm REASON FOR STUDY: altered mental status COMPARISON: 03/11/2017. TECHNIQUE: Axial images acquired through the brain without intravenous contrast. Images reviewed wi th bone, brain and subdural windows. Images stored on PACS. All CT scanners at this facility use dose modulation, iterative reconstruction, and/or weight based d osing when appropriate to reduce radiation dose to as low as reasonably achievable (ALARA). [facility]: Dose Right [facility]: CareDose [facility]: Dose Right [facility]: Teradose 4D [facility]: Smart komoot RADIATION DOSE: Up-to-date CT equipment and radiation dose reduction techniques were employed. CTDIv ol: 28.0 mGy. DLP: 504 mGy-cm. mGy. LIMITATIONS: None. FINDINGS: VENTRICLES: Normal size and contour. CEREBRUM: No masses. No hemorrhage. No midline shift. Normal osorio/white matter differentiation. N o evidence for acute infarction. CEREBELLUM: No masses. No hemorrhage. No alteration of density. No evidence for acute infarction. EXTRAAXIAL SPACES: No fluid collections. No masses. ORBITS AND GLOBE: No intra- or extraconal masses. Normal contour of globe without masses. CALVARIUM: No fracture. PARANASAL SINUSES: No fluid or mucosal thickening. SOFT TISSUES: No mass or hematoma. OTHER: No other significant finding. IMPRESSION: NORMAL BRAIN CT WITHOUT CONTRAST. TECHNICAL DOCUMENTATION: JOB ID: [id number] Quality ID # [id number]: Final reports with documentation of one or more dose reduction techniques (e.g., Au tomated exposure control, adjustment of the mA and/or kV according to patient size, use of iterative reconstruction technique) 2010 [email or web address]- All Rights Reserved
--- NOTE | 2017-03-14 21:18 | RADIOLOGY REPORT (SQ) ---
EXAM DESCRIPTION: CHEST SINGLE VIEW COMPLETED DATE/TIME: 03/14/2017 9:09 pm REASON FOR STUDY: altered mental status COMPARISON: 03/12/2017. EXAM PARAMETERS: NUMBER OF VIEWS: One view. TECHNIQUE: Single frontal radiographic view of the chest acquired. RADIATION DOSE: NA LIMITATIONS: None. FINDINGS: LUNGS AND PLEURA: No opacities, masses or pneumothorax. No pleural effusion. MEDIASTINUM AND HILAR STRUCTURES: No masses. Contour normal. HEART AND VASCULAR STRUCTURES: Heart normal in size. Normal vasculature. BONES: No acute findings. HARDWARE: None in the chest. OTHER: No other significant finding. IMPRESSION: NO ACUTE RADIOGRAPHIC FINDING IN THE CHEST. TECHNICAL DOCUMENTATION: JOB ID: [id number]
[2017-03-14 21:19] LABS: APPEARANCE,URINE CLEAR; BILIRUBIN,URINE NEGATIVE (NEGATIVE); GLUCOSE, URINE NEGATIVE (NEGATIVE); KETONES,URINE NEGATIVE (NEGATIVE); LEUKOCYTE ESTERASE,URINE NEGATIVE (NEGATIVE); NITRITE,URINE NEGATIVE (NEGATIVE); PROTEIN,URINE NEGATIVE (NEGATIVE); URINE SPECIFIC GRAVITY 1.003; UROBILINOGEN,URINE NEGATIVE mg/dL (<2.0)
[2017-03-14 21:20] LABS: TROPONIN I < 0.012 ng/mL
[2017-03-14 21:29] LABS: ALANINE AMINOTRANSFERASE 36 U/L (21-72); ALBUMIN 3.8 g/dL (3.5-5.0); ALCOHOL 27 mg/dL (NONE DETECTED); ALKALINE PHOSPHATASE 88 U/L (38-126); ASPARTATE AMINO TRANSFERASE 55 U/L (17-59); BILIRUBIN,DIRECT 0.4 mg/dL (0.0-0.4); BILIRUBIN,TOTAL 0.5 mg/dL (0.2-1.3); BLOOD UREA NITROGEN 10 mg/dL (7-20); CALCIUM 8.3 mg/dL (8.4-10.2); CARBON DIOXIDE 33 mmol/L (22-30); CREATINE KINASE 125 U/L (55-170); CREATININE RESULT 0.51 mg/dL (0.52-1.25); GLUCOSE 87 mg/dL (75-110); POTASSIUM 4.2 mmol/L (3.6-5.0); TOTAL PROTEIN 6.7 g/dL (6.3-8.2)
[2017-03-14 21:30] LABS: ANION GAP 10 (5-19); CHLORIDE 79 mmol/L (98-107)
[2017-03-14 21:37] LABS: URINE BARBITURATES SCREEN NEGATIVE; URINE METHADONE SCREEN NEGATIVE; URINE OPIATES LOW NEGATIVE; URINE PHENCYCLIDINE SCREEN NEGATIVE
[2017-03-14] MEDS ORDERED: IPRATROPIUM/ALBUTEROL 0.5-2.5 MG/3 ML AMPUL NEB ONE (21:44)
[2017-03-14 22:42] LABS: HEMATOCRIT 35.3 % (37.9-51.0); HEMOGLOBIN 11.1 g/dL (13.5-17.0); MEAN CORPUSCULAR HEMOGLOBIN 27.8 pg (27.0-33.4); MEAN CORPUSCULAR HGB CONC 31.6 g/dL (32.0-36.0); MEAN CORPUSCULAR VOLUME 88 fl (80-97); RED BLOOD COUNT 4.01 10^6/uL (4.35-5.55); RED CELL DISTRIBUTION WIDTH 17.6 % (11.5-14.0); WHITE BLOOD COUNT 6.3 10^3/uL (4.0-10.5)
[2017-03-14 22:57] LABS: BASOPHILS % (MANUAL) 0 % (0-2); EOSINOPHILS % (MANUAL) 2 % (0-6); LYMPHOCYTES % (MANUAL) 20 % (13-45); TOTAL CELLS COUNTED 100
[2017-03-14 22:59] LABS: ANISOCYTOSIS 1+; TOXIC VACUOLATION PRESENT
[2017-03-14 23:02] LABS: HYPOCHROMASIA SLIGHT; OVALOCYTES SLIGHT; POIKILOCYTOSIS SLIGHT; POLYCHROMASIA SLIGHT; TARGET CELLS SLIGHT; TEAR DROP CELLS SLIGHT
[2017-03-14 23:04] LABS: TOXIC GRANULATION SLIGHT
[2017-03-15 02:09] LABS: CREATINE KINASE MB 7.19 ng/mL (<4.55)
[2017-03-15 02:12] LABS: TROPONIN I < 0.012 ng/mL
[2017-03-15] MEDS ORDERED: METHYLPREDNISOLONE INJ 125 MG/2 ML SDV IV ONE (03:07)
[2017-03-15] MEDS ORDERED: IPRATROPIUM/ALBUTEROL 0.5-2.5 MG/3 ML AMPUL NEB ONE ×2 (03:07→03:09)
[2017-03-15] MEDS ORDERED: MAGNESIUM SULFATE/D5W 100 ML IV PRN (03:10)
[2017-03-15] MEDS ORDERED: IPRATROPIUM/ALBUTEROL 0.5-2.5 MG/3 ML AMPUL NEB PRN (05:29)
[2017-03-15] MEDS ORDERED: MAGNESIUM HYDROXIDE SUSP 30 ML UDCUP PO PRN (05:29)
[2017-03-15] MEDS ORDERED: NORMAL SALINE 1000 ML 1,000 ML IV PRN (05:30)
[2017-03-15] MEDS ORDERED: ACETAMINOPHEN 325 MG TABLET PO PRN (05:34)
[2017-03-15] MEDS ORDERED: LORAZEPAM 1 MG TABLET PO PRN (05:38)
[2017-03-15 06:04] LABS: PROTHROMBIN TIME 12.2 SEC (11.4-15.4)
[2017-03-15 06:05] LABS: PARTIAL THROMBOPLASTIN TIME 30.5 SEC (23.5-35.8)
[2017-03-15 06:26] LABS: ANION GAP 7 (5-19); BLOOD UREA NITROGEN 8 mg/dL (7-20); CARBON DIOXIDE 38 mmol/L (22-30); CHLORIDE 80 mmol/L (98-107); GLUCOSE 111 mg/dL (75-110); MAGNESIUM 2.5 mg/dL (1.6-2.3); POTASSIUM 4.7 mmol/L (3.6-5.0); SODIUM 124.7 mmol/L (137-145)
[2017-03-15 06:35] LABS: HEMOGLOBIN 11.4 g/dL (13.5-17.0); HGB HCT DIFFERENCE -1.8; MEAN CORPUSCULAR HEMOGLOBIN 27.6 pg (27.0-33.4); MEAN CORPUSCULAR HGB CONC 31.6 g/dL (32.0-36.0); MEAN CORPUSCULAR VOLUME 87 fl (80-97); RED BLOOD COUNT 4.12 10^6/uL (4.35-5.55); RED CELL DISTRIBUTION WIDTH 17.6 % (11.5-14.0); WHITE BLOOD COUNT 8.4 10^3/uL (4.0-10.5)
[2017-03-15 06:38] LABS: BASOPHILS % (MANUAL) 0 % (0-2); EOSINOPHILS % (MANUAL) 0 % (0-6); LYMPHOCYTES % (MANUAL) 2 % (13-45); TOTAL CELLS COUNTED 100
[2017-03-15 06:40] LABS: ANISOCYTOSIS 1+; TOXIC GRANULATION SLIGHT; TOXIC VACUOLATION PRESENT
[2017-03-15 06:42] LABS: VENOUS BLOOD HCO3 40.5 mmol/L (20-32); VENOUS BLOOD PH 7.34 (7.30-7.42)
[2017-03-15 06:44] LABS: VENOUS BLOOD PCO2 76.1 mmHg (35-63)
[2017-03-15 08:21] VITALS: BP 118/62
--- NOTE | 2017-03-15 08:38 | EKG REPORT ---
SEVERITY:- ABNORMAL ECG - SINUS RHYTHM BORDERLINE RIGHT AXIS DEVIATION CONSIDER LEFT VENTRICULAR HYPERTROPHY : Confirmed by: Renee Gill 15-Mar-2017 08:37:12
--- NOTE | 2017-03-15 09:50 | PDOC H&P ---
History of Present Illness Admission Date/PCP: 03/15/17 04:35 PCP Uncertain Patient complains of: Short of breath, altered mental status History of Present Illness: LEIF NUÑEZ is a 61 year old male with known underlying alcohol abuse, well-known to both the emergency room and hospitalist staff for frequent visits to the emergency room for intoxication, and for leaving AGAINST MEDICAL ADVICE. Presents to the emergency room for evaluation of above complaints. Patient has been discussed with emergency room nurse practitioner who evaluated the patient. Patient is aware of his location and the year but seems confused as to why he is here. Intermittent confused answers to basic questions. Occasional answers are just incoherent mumbling. Patient was brought to the emergency room for above complaints by [employer] escort. Was noted to not answer any questions. Lethargic. Patient did become a bit more alert with time after BiPAP was applied,. However , patient then became somewhat angry agitated, demanding that BiPAP be taken off. When taken off oxygen, however he became hypoxic, became poorly responsive and somnolent. Placed back on BiPAP. Emergency room nurse practitioner note reviewed. No further information available this point in time. Admitted to our service the of this month for respiratory distress felt secondary to COPD exacerbation. left AGAINST MEDICAL ADVICE that same day. History and physical and discharge summary reviewed. Admitted to our service the day before for similar complaints, and once again left AGAINST MEDICAL ADVICE. History and physical and discharge summary reviewed. According to discharge summaries, patient is DO NOT RESUSCITATE. Laboratory results are listed in [facility]Info and are reviewed. X-ray summary results are listed below, with full report(s) reviewed. . EKG reviewed. Social history/personal habits: See history and present illness. No further information available this point in time. Allergies/adverse reactions are listed in [facility] and are reviewed. Home medications initially autopopulated into [employer] may not accurately reflect patient's true medications, dosages, and/or frequencies. compounding pharmacy technician to reconcile medications. Unfortunately, patient cannot provide any information related to medications/ dosages/frequencies. REVIEW OF SYSTEMS: See history and present illness. No further information available this point in time. PHYSICAL EXAMINATION: Neither height nor weight are recorded on the chart. Blood pressure 127/71. Pulse 74 and regular. 100% FiO2 on BiPAP 14/10, 70% FiO2; nursing staff is instructed to maintain saturation between 90 and 94%. Wean from BiPAP as tolerated slowly. Respirations 15 and unlabored. Temperature 98.0. Thin disheveled chronically ill male who appears a number of years older than his stated age. Somewhat somnolent. Does awaken, but remained somewhat somnolent. Maintaining airway well. 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 Skin is warm and dry. No grossly obvious evidence of rash in areas of skin examined. No subcutaneous nodules palpated. What appears to be chronic ecchymosis on his right forearm. ENT: Perhaps slightly hard of hearing to normal conversation. Tongue midline on protrusion pink and slightly tacky. No abbasi sign. Eyes: No scleral icterus. Pupils equal and reactive to light at 4 mm. [place] conjunctivae. No raccoon eyes. Neck is nontender to palpation. Midline trachea. No palpable thyroid nodule mass enlargement or tenderness. Lymphatic: No palpable cervical or clavicular nodes. Neck and lymphatic exams limited by patient body habitus. Psychiatric: Cannot be adequately evaluated due to his current status. See above. Lungs: Auscultation reveals clear and equal breath sounds bilaterally. No use of accessory respiratory muscles. Cardiovascular: Heart regular rate and rhythm, without gallop murmur or rub. No carotid or abdominal aortic bruits. No ankle or pedal edema. Faintly palpable dorsalis pedis pulses. Abdomen:soft slightly distended nontender with positive bowel sounds. Unable to adequately evaluate abdomen for masses or organomegaly due to distention. Extremities: Feet are warm and dry. No calf tenderness to compression. No grossly obvious visual evidence of calf swelling. Gentle manipulation of lower extremities fails to reveal any obvious evidence of injury or instability to knees hips or ankles. Has bilateral wrist handcuffs, attached to bed rails. Neurologic: Patellar reflexes absent. Absent Babinski. Light touch cannot be adequately evaluated due to his current status.. Dorsiflexion and plantarflexion of feet 5 / 5 and symmetric. Past Medical History Past Medical History: Information from current and old records. Patient cannot provide any information at this time. Cardiac Medical History: Reports: Coronary Artery Disease, Myocardial Infarction - [place] occured in 2002. Takes ASA now, used to be on hypertensive medications, Hyperlipidema, Hypertension Pulmonary Medical History: Reports: Asthma, Bronchitis, Chronic Obstructive Pulmonary Disease (COPD), Pneumonia Musculoskeltal Medical History: Reports: Arthritis Psychiatric Medical History: Reports: Depression Past Surgical History Past Surgical History: Information from current and old records. Patient cannot provide any information at this time. Past Surgical History: Reports: Cardiac Catheterization Social History Information Source: Emergency Med Personnel, [facility] Records Lives with: Other Smoking Status: Unknown if Ever Smoked Frequency of Alcohol Use: Heavy Hx Recreational Drug Use: No Drugs: None Hx Prescription Drug Abuse: Yes - Opiate and benzodiazepine - Advance Directive Resuscitation Status: Do Not Resuscitate Surrogate healthcare decision maker:: Reportedly son Kathleen Family History Family History: Reviewed & Not Pertinent, Arthritis, CAD, COPD Parental Family History Reviewed: No - Patient cannot provide any information at this time. Children Family History Reviewed: No - Patient cannot provide any information at this time. Sibling(s) Family History Reviewed.: No - Patient cannot provide any information at this time. Medication/Allergy Allergies/Adverse Reactions: No Known Allergies Allergy (Verified 03/11/17 16:06) Physical Exam Vital Signs: Temp Pulse Resp BP Pulse Ox 98.0 F 70 18 127/71 H 98 03/14/17 19:00 03/14/17 19:00 03/15/17 05:25 03/15/17 05:01 03/15/17 05:25 Results Impressions: Chest X-Ray 03/14/17 19:17 IMPRESSION: NO ACUTE RADIOGRAPHIC FINDING IN THE CHEST. Head CT 03/14/17 19:17 IMPRESSION: NORMAL BRAIN CT WITHOUT CONTRAST. Assessment & Plan - Diagnosis (1) Acute and chronic respiratory failure with hypercapnia Is this a current diagnosis for this admission?: YesPlan: Wean from BiPAP as tolerated. Repeat blood gas. Appropriate vital sign parameters entered into chart. I have strongly encouraged patient not to get out of bed, to avoid a fall with injury. Knee high SCDs for DVT prophylaxis, along with subcutaneous heparin. Time spent in evaluation and management of patient: 55 critical-care minutes. (2) DNR (do not resuscitate) Is this a current diagnosis for this admission?: YesPlan: Per discharge summary from the , and again from the of this month. Due to patient's altered mental status, he is not able to make any comment or determination on the status. Per old records, son is his healthcare decision maker. Emergency room staff unable to contact son. At 524 this morning, and again at 924 this morning, I called the contact number listed in his electronic health record. The only answer I received was a recorded message that voicemail box had not been set up as of yet for the phone number. We will continue with DNR/DNI status. (3) Encephalopathy acute Is this a current diagnosis for this admission?: YesPlan: Likely due to combination of his acute alcohol intoxication, along with hypercarbia. Should resolve with time and treatment. (4) Hyponatremia Is this a current diagnosis for this admission?: YesPlan: Chronic problem for patient, likely due to beer intake. Serial Chem-7. (5) Alcohol abuse Is this a current diagnosis for this admission?: YesPlan: Daily banana bag. Observe closely for signs of alcohol withdrawal and treat appropriately. (6) Alcohol intoxication Qualifiers: Complication of substance-induced condition: with unspecified complication Qualified Code(s): F10.929 - Alcohol use, unspecified with intoxication, unspecified Is this a current diagnosis for this admission?: Yes - Inpatient Certification Based on my medical assessment, after consideration of the patient's comorbidities, presenting symptoms, or acuity I expect that the services needed warrant INPATIENT care.: Yes I certify that my determination is in accordance with my understanding of Medicare's requirements for reasonable and necessary INPATIENT services [42 CFR 412.3e].: Yes Medical Necessity: Significant Comorbidiites Make Outpatient Treatment Too Risky , Need Close Monitoring Due to Risk of Patient Decompensation, Need For IV Fluids, Need For Continuous Telemetry Monitoring, Risk of Diagnosis Which Will Require Inpatient Eval/Care/Monitoring Post Hospital Care: D/C or Transfer Summary
[2017-03-15] MEDS ORDERED: DOCUSATE SODIUM 100 MG CAPSULE PO SCH (10:00)
[2017-03-15] MEDS ORDERED: ENOXAPARIN SODIUM INJ 40 MG/0.4 ML DISP.SYRIN SUBCUT SCH ×2 (10:00)
[2017-03-15] MEDS ORDERED: NORMAL SALINE 1000 ML 1,000 ML with THIAMINE HCL 100 MG, MVI, ADULT NO.1 WITH VIT K 10 ... IV SCH ×8 (18:00)
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
== END 2017-03-15 09:53 | disposition left against medical advice (07) | DRG 189 ==
LOC: ER 18:46 → EH 03-15 04:35 → UNDOADMIN 03-15 04:35 → EH 03-15 05:29 → 3S 03-15 06:14 → EH 03-15 06:14
PROVIDERS: ADMIT Family Medicine; ATTEND Family Medicine
PROC: 5A09357 Assistance with Respiratory Ventilation, Less than 24 Consecutive Hours, Continuous Positive Airway Pressure (ICD-10-PCS; principal; 2017-03-15)
DX: J96.22 Acute and chronic respiratory failure with hypercapnia (principal); J96.21 Acute and chronic respiratory failure with hypoxia; G93.40 Encephalopathy, unspecified; E87.1 Hypo-osmolality and hyponatremia; F10.929 Alcohol use, unspecified with intoxication, unspecified; Y90.0 Blood alcohol level of less than 20 mg/100 ml; J44.9 Chronic obstructive pulmonary disease, unspecified; I25.10 Atherosclerotic heart disease of native coronary artery without angina pectoris; Z66 Do not resuscitate; Z91.14 Patient's other noncompliance with medication regimen; I25.2 Old myocardial infarction; F17.200 Nicotine dependence, unspecified, uncomplicated
CPT/HCPCS: 36415; 51702; 70450; 71010; 80048; 80053; 80307; 81001; 82140; 82550; 82553; 82803; 83735; 84484; 85025; 85610; 85730; 87040; 93005; 93010; 94640; 94660; 96361; 96374; 96375; 99285; J2930; J3411; J3475; J3490; J7030; J7620

== ENCOUNTER 2017-03-29 18:09 | Emergency (ER) | payer MEDICARE, MEDICAID ==
--- NOTE | 2017-03-29 18:29 | ER Document Report ---
ED General - General Stated Complaint: RESPIRATORY PROBLEM Time Seen by Provider: 03/29/17 18:18 Cannot obtain history due to: Uncooperative Notes: Patient presents again today by EMS for multitude of complaints primarily shortness of breath. Patient refuses to provide any additional history at time of arrival stating he is going home. TRAVEL OUTSIDE OF THE [place] IN LAST 30 DAYS: No - Related Data Allergies/Adverse Reactions: No Known Allergies Allergy (Verified 03/11/17 16:06) Past Medical History - General Information source: Emergency Med Personnel - Social History Smoking Status: Current Every Day Smoker Frequency of alcohol use: Heavy Drug Abuse: None Family History: Reviewed & Not Pertinent, Arthritis, CAD, COPD - Past Medical History Cardiac Medical History: Reports: Hx Coronary Artery Disease, Hx Heart Attack - [place] occured in 2002. Takes ASA now, used to be on hypertensive medications, Hx Hypercholesterolemia, Hx Hypertension Pulmonary Medical History: Reports: Hx Asthma, Hx Bronchitis, Hx COPD, Hx Pneumonia Renal/ Medical History: Denies: Hx Peritoneal Dialysis Musculoskeltal Medical History: Reports Hx Arthritis, Reports Hx Musculoskeletal Deformity, Reports Hx Musculoskeletal Trauma Psychiatric Medical History: Reports: Hx Borderline Personality Disorder, Hx Depression Traumatic Medical History: Reports: Hx Fractures - Left rib fractures with pneumothorax requiring chest tube on 05/23/2016 Past Surgical History: Reports: Hx Cardiac Catheterization - Immunizations Immunizations up to date: Yes Hx Diphtheria, Pertussis, Tetanus Vaccination: - unknown Hx Pneumococcal Vaccination: 02/22/13 Review of Systems - Review of Systems -: Yes ROS unobtainable due to patient's medical condition Physical Exam - Vital signs Vitals: Temp Pulse Resp BP Pulse Ox 97.7 F 103 H 24 H 101/52 L 91 L 03/29/17 18:27 03/29/17 18:27 03/29/17 18:27 03/29/17 18:27 03/29/17 18:27 Notes: PHYSICAL EXAMINATION: Patient refused to complete physical examination GENERAL: Cachectic, chronically unwell in appearance but in no acute distress HEAD: Atraumatic, normocephalic. EYES: sclera anicteric ENT: Moist mucous membranes. LUNGS: Normal work of breathing EXTREMITIES: No cyanosis. NEUROLOGICAL: No focal neurological deficits. Moves all extremities spontaneously. PSYCH: Normal mood, normal affect. Course - Re-evaluation Re-evalutation: 03/29/17 18:26 Patient is very well-known to me and this emergency department, arrived by EMS complaining of multiple complaints but more generally "not feeling well". Immediate upon me entering the room the patient declines further assessment, states he would like to leave AGAINST MEDICAL ADVICE, unable to state exactly why he came to the emergency department. Denies using EMS to the mode of transportation. The patient has chosen to leave the facility against medical advice. The relevant issues have been reviewed and discussed with the patient at the bedside. At the time of this assessment there is no indication for involuntary commitment. The patient is alert, oriented, and able to express clearly their reasoning for not wanting to remain in the emergency department for further treatment. The patient is not clinically psychotic, intoxicated, and denies and suicidal ideation. Differential or suspected diagnoses based on medical screening exam: COPD, tobacco abuse. The patient is aware of the concerning diagnoses and acknowledges understanding of the reasons for the following recommendations: The following recommendations/services were offered and refused: CXR, labs, breathing treatments The following risks were explained: , permanent disability, loss of function Clinical impression: Patient is competent to make decisions regarding the medical that is being offered. - Vital Signs Vital signs: Temp Pulse Resp BP Pulse Ox 97.7 F 103 H 24 H 101/52 L 91 L 03/29/17 18:27 03/29/17 18:27 03/29/17 18:27 03/29/17 18:27 03/29/17 18:27 Discharge - Discharge Clinical Impression: COPD exacerbation, Tobacco abuse, SOB (shortness of breath) Condition: Fair Disposition: AGAINST MEDICAL ADVICE Additional Instructions: Please do not come to the ED unless you would like to have a medical screening exam and treatment. You are always welcome if you would like to seek medical attention.
[2017-03-29 18:31] VITALS: BP 101/52
== END 2017-03-29 18:40 | disposition left against medical advice (07) ==
LOC: ER 18:09
DX: J44.1 Chronic obstructive pulmonary disease with (acute) exacerbation (principal); R06.02 Shortness of breath; F17.200 Nicotine dependence, unspecified, uncomplicated; I25.10 Atherosclerotic heart disease of native coronary artery without angina pectoris; E78.00 Pure hypercholesterolemia, unspecified; I10 Essential (primary) hypertension; F60.3 Borderline personality disorder; Z79.82 Long term (current) use of aspirin; I25.2 Old myocardial infarction
CPT/HCPCS: 99284

== ENCOUNTER 2017-03-31 04:45 | Emergency (ER) | payer MEDICARE, MEDICAID ==
[2017-03-31] MEDS ORDERED: ASPIRIN 81 MG TABLET, CHEWABLE PO ONE (05:06)
[2017-03-31] MEDS ORDERED: IPRATROPIUM/ALBUTEROL 0.5-2.5 MG/3 ML AMPUL NEB ONE (05:07)
--- NOTE | 2017-03-31 05:09 | ER Document Report ---
ED Medical Screen (RME) - General Stated Complaint: SHORTNESS OF BREATH Time Seen by Provider: 03/31/17 05:04 Notes: Patient is a 61-year-old male with COPD and chronic respiratory failure who continues to smoke who comes by EMS for chief complaint of shortness of breath, cough, and chest pain. He states he has had this for a while but it worsened tonight. He left AGAINST MEDICAL ADVICE within the past 48 hours. He states he has had some chills but is unsure of fevers. Patient is well-known to this department. TRAVEL OUTSIDE OF THE [place] IN LAST 30 DAYS: No - Related Data Allergies/Adverse Reactions: No Known Allergies Allergy (Verified 03/11/17 16:06) Past Medical History - Past Medical History Cardiac Medical History: Reports: Hx Coronary Artery Disease, Hx Heart Attack - [place] occured in 2002. Takes ASA now, used to be on hypertensive medications, Hx Hypercholesterolemia, Hx Hypertension Pulmonary Medical History: Reports: Hx Asthma, Hx Bronchitis, Hx COPD, Hx Pneumonia Renal/ Medical History: Denies: Hx Peritoneal Dialysis Musculoskeltal Medical History: Reports Hx Arthritis, Reports Hx Musculoskeletal Deformity, Reports Hx Musculoskeletal Trauma Psychiatric Medical History: Reports: Hx Borderline Personality Disorder, Hx Depression Traumatic Medical History: Reports: Hx Fractures - Left rib fractures with pneumothorax requiring chest tube on 05/23/2016 Past Surgical History: Reports: Hx Cardiac Catheterization - Immunizations Immunizations up to date: Yes Hx Diphtheria, Pertussis, Tetanus Vaccination: - unknown Physical Exam - Vital signs Vitals: Temp Pulse Resp BP Pulse Ox 97.6 F 86 18 149/77 H 98 03/31/17 04:50 03/31/17 04:50 03/31/17 04:50 03/31/17 04:50 03/31/17 04:50 - General General appearance: Appears well In distress: None - Respiratory Respiratory status: No respiratory distress. No: Labored Breath sounds: Decreased air movement, Nonproductive cough, Other - A few scattered rhonchi and wheezes Course - Re-evaluation Re-evalutation: 03/31/17 05:09 I have greeted and performed a rapid initial assessment of this patient. A comprehensive ED assessment and evaluation of the patient, analysis of test results and completion of the medical decision making process will be conducted by additional ED providers. - Vital Signs Vital signs: Temp Pulse Resp BP Pulse Ox 97.6 F 86 18 149/77 H 98 03/31/17 04:50 03/31/17 04:50 03/31/17 04:50 03/31/17 04:50 03/31/17 04:50
[2017-03-31 05:17] LABS: ABSOLUTE BASOPHILS # (AUTO) 0.1 10^3/uL (0.0-0.2); ABSOLUTE LYMPHOCYTES (AUTO) 1.5 10^3/uL (0.5-4.7); ABSOLUTE MONOCYTES (AUTO) 0.9 10^3/uL (0.1-1.4); ABSOLUTE NEUT (AUTO) 3.7 10^3/uL (1.7-8.2); BASOPHILS % (AUTO) 1.2 % (0-2); EOSINOPHILS % (AUTO) 0.1 % (0-6); HEMATOCRIT 38.1 % (37.9-51.0); HEMOGLOBIN 12.1 g/dL (13.5-17.0); HGB HCT DIFFERENCE -1.8; MEAN CORPUSCULAR HEMOGLOBIN 27.7 pg (27.0-33.4); MEAN CORPUSCULAR HGB CONC 31.7 g/dL (32.0-36.0); MEAN CORPUSCULAR VOLUME 87 fl (80-97); RED BLOOD COUNT 4.37 10^6/uL (4.35-5.55); SEGMENTED NEUTROPHILS % (AUTO) 60.7 % (42-78); WHITE BLOOD COUNT 6.1 10^3/uL (4.0-10.5)
[2017-03-31 05:35] LABS: ALANINE AMINOTRANSFERASE 42 U/L (21-72); ALBUMIN 3.9 g/dL (3.5-5.0); ALKALINE PHOSPHATASE 82 U/L (38-126); ANION GAP 10 (5-19); ASPARTATE AMINO TRANSFERASE 52 U/L (17-59); BILIRUBIN,DIRECT 0.4 mg/dL (0.0-0.4); BILIRUBIN,TOTAL 0.4 mg/dL (0.2-1.3); BLOOD UREA NITROGEN 5 mg/dL (7-20); CALCIUM 8.6 mg/dL (8.4-10.2); CARBON DIOXIDE 29 mmol/L (22-30); CHLORIDE 93 mmol/L (98-107); CREATINE KINASE 51 U/L (55-170); CREATININE RESULT 0.48 mg/dL (0.52-1.25); GLUCOSE 80 mg/dL (75-110); POTASSIUM 3.9 mmol/L (3.6-5.0); SODIUM 132.1 mmol/L (137-145); TOTAL PROTEIN 6.9 g/dL (6.3-8.2)
[2017-03-31 05:42] VITALS: BP 147/83
[2017-03-31 05:48] LABS: TROPONIN I < 0.012 ng/mL
[2017-03-31 05:55] LABS: ANISOCYTOSIS 2+; OVALOCYTES SLIGHT; POIKILOCYTOSIS SLIGHT; POLYCHROMASIA 1+; TARGET CELLS 2+; TEAR DROP CELLS SLIGHT
[2017-03-31 05:56] LABS: TOXIC GRANULATION SLIGHT
--- NOTE | 2017-03-31 10:00 | EKG REPORT ---
SEVERITY:- BORDERLINE ECG - SINUS RHYTHM POOR R PROGRESSION ANTERIOR LEADS. : Confirmed by: Lázaro De La Garza MD 31-Mar-2017 09:59:29
== END 2017-03-31 05:41 | disposition left against medical advice (07) ==
LOC: ER 04:45
DX: Z53.9 Procedure and treatment not carried out, unspecified reason (principal); R06.02 Shortness of breath; J44.9 Chronic obstructive pulmonary disease, unspecified
CPT/HCPCS: 93005; 94640; 99281; 36415; 82553; 82550; 85025; 80053; 84484; 93010; A9270 ×2; J7620

== ENCOUNTER 2017-04-01 23:30 | Emergency (ER) | payer MEDICARE, MEDICAID ==
[2017-04-01] MEDS ORDERED: METHYLPREDNISOLONE INJ 125 MG/2 ML SDV IV ONE (23:48)
[2017-04-01] MEDS ORDERED: IPRATROPIUM/ALBUTEROL 0.5-2.5 MG/3 ML AMPUL NEB ONE (23:48)
[2017-04-02] MEDS ORDERED: ALBUTEROL SULFATE 0.083% NEB 2.5 MG/3 ML AMPUL NEB SCH (00:03)
--- NOTE | 2017-04-02 00:42 | RADIOLOGY REPORT (SQ) ---
EXAM DESCRIPTION: CHEST SINGLE VIEW COMPLETED DATE/TIME: 04/02/2017 12:33 am REASON FOR STUDY: difficulty breathing COMPARISON: 03/14/2017. EXAM PARAMETERS: NUMBER OF VIEWS: One view. TECHNIQUE: Single frontal radiographic view of the chest acquired. RADIATION DOSE: NA LIMITATIONS: None. FINDINGS: LUNGS AND PLEURA: Mild chronic interstitial changes. No lobar infiltrates, masses or pneu mothorax. No pleural effusion. MEDIASTINUM AND HILAR STRUCTURES: No masses. Contour normal. HEART AND VASCULAR STRUCTURES: Heart normal in size. Normal vasculature. BONES: No acute findings. Old left rib fractures. HARDWARE: None in the chest. OTHER: No other significant finding. IMPRESSION: NO ACUTE RADIOGRAPHIC FINDING IN THE CHEST. TECHNICAL DOCUMENTATION: JOB ID: [id number]
--- NOTE | 2017-04-02 01:30 | ER Document Report ---
ED General - General Chief Complaint: Breathing Difficulty Stated Complaint: BREATHING DIFFICULTY Time Seen by Provider: 04/02/17 01:24 Mode of Arrival: Medic Information source: Patient, Law Enforcement TRAVEL OUTSIDE OF THE [place] IN LAST 30 DAYS: No - HPI Notes: Patient is a 61-year-old male history of chronic COPD with recurrent exacerbations presents to the emergency department incarcerated with report that he was having wheezing and dyspnea. The patient was given a nebulizer treatment and IV Solu-Medrol. The patient denies any chest pain. The patient reports no fever or productive cough or abdominal pain. On my questioning he is just asking for something to eat. - Related Data Allergies/Adverse Reactions: No Known Allergies Allergy (Verified 03/11/17 16:06) Past Medical History - General Information source: Patient - Social History Smoking Status: Current Every Day Smoker Chew tobacco use (# tins/day): No Frequency of alcohol use: Heavy Drug Abuse: None Lives with: Family Family History: Reviewed & Not Pertinent, Arthritis, CAD, COPD - Past Medical History Cardiac Medical History: Reports: Hx Coronary Artery Disease, Hx Heart Attack - [place] occured in 2002. Takes ASA now, used to be on hypertensive medications, Hx Hypercholesterolemia, Hx Hypertension Pulmonary Medical History: Reports: Hx Asthma, Hx Bronchitis, Hx COPD, Hx Pneumonia Renal/ Medical History: Denies: Hx Peritoneal Dialysis Musculoskeltal Medical History: Reports Hx Arthritis, Reports Hx Musculoskeletal Deformity, Reports Hx Musculoskeletal Trauma Psychiatric Medical History: Reports: Hx Borderline Personality Disorder, Hx Depression Traumatic Medical History: Reports: Hx Fractures - Left rib fractures with pneumothorax requiring chest tube on 05/23/2016 Past Surgical History: Reports: Hx Cardiac Catheterization - Immunizations Immunizations up to date: Yes Hx Diphtheria, Pertussis, Tetanus Vaccination: - unknown Hx Pneumococcal Vaccination: 02/22/13 Review of Systems - Review of Systems Notes: REVIEW OF SYSTEMS: CONSTITUTIONAL : Denies fever, chills, or sweats. Denies recent illness. EENT: Denies eye, ear, throat, or mouth pain or symptoms. Denies nasal or sinus congestion or discharge. Denies throat, tongue, or mouth swelling or difficulty swallowing. CARDIOVASCULAR: Denies chest pain. Denies palpitations or racing or irregular heart beat. Denies ankle edema. RESPIRATORY: History of chronic wheezing. Patient is not on home oxygen. GASTROINTESTINAL: Denies abdominal pain or distention. Denies nausea, vomiting , or diarrhea. Denies blood in vomitus, stools, or per rectum. Denies black, tarry stools. Denies constipation. GENITOURINARY: Denies difficulty urinating, painful urination, burning, frequency, blood in urine, or discharge. MUSCULOSKELETAL: Denies back or neck pain or stiffness. Denies joint pain or swelling. SKIN: Denies rash, lesions or sores. HEMATOLOGIC : Denies easy bruising or bleeding. LYMPHATIC: Denies swollen, enlarged glands. NEUROLOGICAL: Denies confusion or altered mental status. Denies passing out or loss of consciousness. Denies dizziness or lightheadedness. Denies headache. Denies weakness or paralysis or loss of use of either side. Denies problems with gait or speech. Denies sensory loss, numbness, or tingling. Denies seizures. PSYCHIATRIC: Denies anxiety or stress. Denies depression, suicidal ideation, or homicidal ideation. ALL OTHER SYSTEMS REVIEWED AND NEGATIVE. Dictation was performed using [employer] voice recognition software Physical Exam - Vital signs Vitals: Resp 22 H 04/01/17 23:40 - Notes Notes: PHYSICAL EXAMINATION: GENERAL: Well-appearing, well-nourished and in no acute distress. Patient examined after his nebulizer treatment. He is sleeping and resting comfortably and his oxygen saturation is 94%. HEAD: Atraumatic, normocephalic. EYES: Pupils equal round and reactive to light, extraocular movements intact, sclera anicteric, conjunctiva are normal. ENT: Nares patent, oropharynx clear without exudates. Moist mucous membranes. NECK: Normal range of motion, supple without lymphadenopathy LUNGS: Breath sounds coarse to auscultation bilaterally and equal. No wheezes rales or rhonchi After neb treatment. HEART: Regular rate and rhythm without murmurs ABDOMEN: Soft, nontender, nondistended abdomen. No guarding, no rebound. No masses appreciated. Musculoskeletal: Normal range of motion, no pitting or edema. No cyanosis. NEUROLOGICAL: Cranial nerves grossly intact. Normal speech, normal gait. Normal sensory, motor exams PSYCH: Normal mood, normal affect. SKIN: Warm, Dry, normal turgor, no rashes or lesions noted. Course - Re-evaluation Re-evalutation: 04/02/17 01:46 Patient was given nebulizer treatment and IV Solu-Medrol. Oxygen saturations are stable. Chest x-ray is negative. There is no evidence for acute VT or ischemia or arrhythmia or pneumonia or congestive heart failure. No clinical suggestion for hypercarbia. No hypoxia on room air. Patient is stable for transfer back to police custody. He has availability of nebulizer treatments in the intermediate. - Vital Signs Vital signs: Temp Pulse Resp BP Pulse Ox 97.3 F 81 18 142/79 H 94 04/01/17 23:43 04/01/17 23:43 04/02/17 01:01 04/02/17 01:01 04/02/17 01:01 Discharge - Discharge Clinical Impression: COPD with acute exacerbation COPD (chronic obstructive pulmonary disease) Qualifiers: COPD type: unspecified COPD Qualified Code(s): J44.9 - Chronic obstructive pulmonary disease, unspecified Condition: Stable Disposition: HOME, SELF-CARE Instructions: Chronic Obstructive Lung Disease ([facility]) Additional Instructions: Use nebulizer treatment as needed for wheezing. If patient is to be incarcerated longer than a week, I strongly recommend that he go to [facility] in [place] due to his frail medical condition with chronic COPD.
[2017-04-02] MEDS ORDERED: IPRATROPIUM/ALBUTEROL 0.5-2.5 MG/3 ML AMPUL NEB ONE (01:38)
[2017-04-02 02:38] VITALS: BP 146/82
--- NOTE | 2017-04-02 07:45 | EKG REPORT ---
SEVERITY:- NORMAL ECG - SINUS RHYTHM : Confirmed by: Renee Gill 02-Apr-2017 07:44:30
== END 2017-04-02 02:15 | disposition home or self-care (01) ==
LOC: ER 23:30
DX: J44.1 Chronic obstructive pulmonary disease with (acute) exacerbation (principal); F17.200 Nicotine dependence, unspecified, uncomplicated; I25.10 Atherosclerotic heart disease of native coronary artery without angina pectoris; E78.00 Pure hypercholesterolemia, unspecified; I10 Essential (primary) hypertension; I25.2 Old myocardial infarction; Z79.82 Long term (current) use of aspirin
CPT/HCPCS: 93005; 94640 ×2; 99285; 96374; 71010; 93010; J2930; A9270 ×3; J7620

== ENCOUNTER 2017-04-11 19:49 | Emergency (ER) | payer MEDICARE, MEDICAID ==
[2017-04-11] MEDS ORDERED: IPRATROPIUM/ALBUTEROL 0.5-2.5 MG/3 ML AMPUL NEB ONE (19:51)
[2017-04-11] MEDS ORDERED: PREDNISONE 20 MG TABLET PO ONE (19:51)
[2017-04-11] MEDS ORDERED: ALBUTEROL SULFATE 0.083% NEB 2.5 MG/3 ML AMPUL NEB SCH (20:06)
[2017-04-11] MEDS ORDERED: ASPIRIN 81 MG TABLET, CHEWABLE PO ONE (20:16)
--- NOTE | 2017-04-11 20:17 | ER Document Report ---
ED Respiratory Problem - General Information source: Patient TRAVEL OUTSIDE OF THE [place] IN LAST 30 DAYS: No - HPI Patient complains to provider of: Short of breath Associated symptoms: Other - see above <IVETH GIL - Last Filed: 04/11/17 20:31> - HPI Duration: Continuous Severity: Moderate <JOSE D VARGAS - Last Filed: 04/12/17 00:45> - General Stated Complaint: SHORTNESS OF BREATH Time Seen by Provider: 04/11/17 20:02 Notes: Patient is a 61 year old male who presents to the ED with complaints of sob x a couple hours and chest pain all afternoon today. Patient states he has done 2 breathing treatments at home with no relief. No other concerns or complaints at this time (IVETH GIL) - Related Data Allergies/Adverse Reactions: No Known Allergies Allergy (Verified 04/02/17 02:47) Past Medical History - General Information source: Patient - Social History Smoking Status: Current Every Day Smoker Chew tobacco use (# tins/day): No Frequency of alcohol use: Heavy Drug Abuse: None Family History: Reviewed & Not Pertinent, Arthritis, CAD, COPD - Past Medical History Cardiac Medical History: Reports: Hx Coronary Artery Disease, Hx Heart Attack - [place] occured in 2002. Takes ASA now, used to be on hypertensive medications, Hx Hypercholesterolemia, Hx Hypertension Pulmonary Medical History: Reports: Hx Asthma, Hx Bronchitis, Hx COPD, Hx Pneumonia Renal/ Medical History: Denies: Hx Peritoneal Dialysis Musculoskeltal Medical History: Reports Hx Arthritis, Reports Hx Musculoskeletal Deformity, Reports Hx Musculoskeletal Trauma Psychiatric Medical History: Reports: Hx Borderline Personality Disorder, Hx Depression Traumatic Medical History: Reports: Hx Fractures - Left rib fractures with pneumothorax requiring chest tube on 05/23/2016 Past Surgical History: Reports: Hx Cardiac Catheterization - Immunizations Immunizations up to date: Yes Hx Diphtheria, Pertussis, Tetanus Vaccination: - unknown Hx Pneumococcal Vaccination: 02/22/13 <IVETH GIL - Last Filed: 04/11/17 20:31> Review of Systems - Review of Systems Constitutional: No symptoms reported EENT: No symptoms reported Cardiovascular: See HPI, Chest pain Respiratory: See HPI, Short of breath Gastrointestinal: No symptoms reported Genitourinary: No symptoms reported Male Genitourinary: No symptoms reported Musculoskeletal: No symptoms reported Skin: No symptoms reported Hematologic/Lymphatic: No symptoms reported Neurological/Psychological: No symptoms reported <IVETH GIL - Last Filed: 04/11/17 20:31> Physical Exam <IVETH GIL - Last Filed: 04/11/17 20:31> <JOSE D VARGAS - Last Filed: 04/12/17 00:45> - Vital signs Vitals: Temp Pulse Resp BP Pulse Ox 98 F 78 18 143/77 H 100 04/11/17 20:24 04/11/17 20:24 04/11/17 20:24 04/11/17 20:24 04/11/17 20:24 - Notes Notes: GENERAL: Alert, interacts well. No acute distress. HEAD: Normocephalic, atraumatic. EYES: Pupils equal, round, and reactive to light. Extraocular movements intact. ENT: Oral mucosa moist, tongue midline. NECK: Full range of motion. Supple. Trachea midline. LUNGS: Tachypneic. Poor air movement, expiratory wheezing. No rales, or rhonchi. HEART: Regular rate and rhythm. No murmurs, gallops, or rubs. ABDOMEN: Soft, non-tender. Non-distended. Bowel sounds present in all 4 quadrants. EXTREMITIES: Moves all 4 extremities spontaneously. 1 plus pitting edema in bilateral lower extremities, radial and dorsalis pedis pulses 2/4 bilaterally. No cyanosis. NEUROLOGICAL: Alert and oriented x3. Normal speech. PSYCH: Normal affect, normal mood. SKIN:Hot to touch, dry, normal turgor. Ecchymosis and abrasions in various stages on healing. (IVETH GIL) Course <IVETH GIL - Last Filed: 04/11/17 20:31> - Laboratory Result Diagrams: 04/11/17 21:00 04/11/17 21:00 <JOSE D VARGAS - Last Filed: 04/12/17 00:45> - Re-evaluation Re-evalutation: 04/12/17 00:43 CBC shows anemia with hemoglobin 9.6, he has been this low within the past month , CMP shows low sodium 122, this is lower than last visit but within range for his normals in the past, he has no alteration in mentation, glucose is somewhat low at 67 but he will be fed, troponin initially indeterminate 0.049, repeat has decreased to 0.044. Chest x-ray shows chronic changes but nothing new, there are no new ischemic changes on his EKG. patient's breathing sounds much better after multiple breathing treatments, he will be started on steroids and discharged home. (JOSE D VARGAS) - Vital Signs Vital signs: Temp Pulse Resp BP Pulse Ox 98 F 78 18 143/77 H 100 04/11/17 20:24 04/11/17 20:24 04/11/17 20:24 04/11/17 20:24 04/11/17 20:24 - Laboratory Laboratory results interpreted by me: 04/11/17 04/11/17 04/11/17 21:00 21:00 21:00 RBC 3.49 L Hgb 9.6 L Hct 29.4 L RDW 17.4 H Lymphocytes % 12.1 L Monocytes % 16.9 H Sodium 122.4 L Chloride 88 L BUN 4 L Creatinine 0.40 L Glucose 67 L Calcium 7.3 L Creatine Kinase 191 H CK-MB (CK-2) 8.59 H Total Protein 5.9 L Albumin 3.2 L - EKG Interpretation by Me Additional EKG results interpreted by me: 04/12/17 00:44 EKG shows sinus rhythm at a rate of 74, 1 PAC, normal axis, normal intervals, no ST segment elevations or depressions, low voltage in aVL per my interpretation. (JOSE D VARGAS) Discharge <IVETH GIL - Last Filed: 04/11/17 20:31> <JOSED VARGAS - Last Filed: 04/12/17 00:45> - Discharge Clinical Impression: COPD exacerbation Condition: Stable Disposition: HOME, SELF-CARE Prescriptions: Prednisone [Deltasone 20 mg Tablet] 3 tab PO DAILY 5 Days Referrals: EPHRAIM MADSEN MD [Primary Care Provider] - Follow up as needed Scribe Attestation: 04/12/17 00:45 I personally performed the services described in the documentation, reviewed and edited the documentation which was dictated to the scribe in my presence, and it accurately records my words and actions. (JOSE D VARGAS) Scribe Documentation - Scribe Written by Scribe:: erika Nuno, 04/11/2017, 2023 acting as scribe for :: Sparkle <IVETH GIL - Last Filed: 04/11/17 20:31>
--- NOTE | 2017-04-11 20:47 | RADIOLOGY REPORT (SQ) ---
EXAM DESCRIPTION: CHEST SINGLE VIEW COMPLETED DATE/TIME: 04/11/2017 8:29 pm REASON FOR STUDY: shortness of breath COMPARISON: 04/02/2017 EXAM PARAMETERS: NUMBER OF VIEWS: One view. TECHNIQUE: Single frontal radiographic view of the chest acquired. RADIATION DOSE: NA LIMITATIONS: None. FINDINGS: LUNGS AND PLEURA: No opacities, masses or pneumothorax. No pleural effusion. Chronic appe aring changes appears stable. MEDIASTINUM AND HILAR STRUCTURES: No masses. Contour normal. HEART AND VASCULAR STRUCTURES: Heart normal in size. Normal vasculature. BONES: No acute findings. HARDWARE: None in the chest. OTHER: No other significant finding. IMPRESSION: No significant interval change. No acute findings. Other findings as noted above TECHNICAL DOCUMENTATION: JOB ID: [id number]
[2017-04-11 21:19] LABS: ABSOLUTE BASOPHILS # (AUTO) 0.1 10^3/uL (0.0-0.2); ABSOLUTE MONOCYTES (AUTO) 1.4 10^3/uL (0.1-1.4); ABSOLUTE NEUT (AUTO) 5.7 10^3/uL (1.7-8.2); MEAN CORPUSCULAR HEMOGLOBIN 27.5 pg (27.0-33.4)
[2017-04-11 21:27] LABS: EOSINOPHILS % (AUTO) 0.2 % (0-6); HEMATOCRIT 29.4 % (37.9-51.0); HEMOGLOBIN 9.6 g/dL (13.5-17.0); HGB HCT DIFFERENCE -0.6; LYMPHOCYTES % (AUTO) 12.1 % (13-45); MEAN CORPUSCULAR HGB CONC 32.7 g/dL (32.0-36.0); MEAN CORPUSCULAR VOLUME 84 fl (80-97); MONOCYTES % (AUTO) 16.9 % (3-13); RED BLOOD COUNT 3.49 10^6/uL (4.35-5.55); RED CELL DISTRIBUTION WIDTH 17.4 % (11.5-14.0); SEGMENTED NEUTROPHILS % (AUTO) 69.8 % (42-78); WHITE BLOOD COUNT 8.1 10^3/uL (4.0-10.5)
[2017-04-11 21:35] LABS: ALANINE AMINOTRANSFERASE 47 U/L (21-72); ALBUMIN 3.2 g/dL (3.5-5.0); ALKALINE PHOSPHATASE 92 U/L (38-126); ANION GAP 8 (5-19); ASPARTATE AMINO TRANSFERASE 54 U/L (17-59); BILIRUBIN,DIRECT 0.3 mg/dL (0.0-0.4); BILIRUBIN,TOTAL 0.3 mg/dL (0.2-1.3); BLOOD UREA NITROGEN 4 mg/dL (7-20); CALCIUM 7.3 mg/dL (8.4-10.2); CARBON DIOXIDE 26 mmol/L (22-30); CHLORIDE 88 mmol/L (98-107); CREATINE KINASE 191 U/L (55-170); GLUCOSE 67 mg/dL (75-110); POTASSIUM 4.3 mmol/L (3.6-5.0); SODIUM 122.4 mmol/L (137-145); TOTAL PROTEIN 5.9 g/dL (6.3-8.2)
[2017-04-11 21:53] LABS: CREATINE KINASE MB 8.59 ng/mL (<4.55)
[2017-04-11 21:57] LABS: TROPONIN I 0.049 ng/mL
[2017-04-11] MEDS ORDERED: ALBUTEROL SULFATE 0.083% NEB 2.5 MG/3 ML AMPUL NEB ONE (23:18)
[2017-04-12 02:09] LABS: ADD ON TESTING BLD IN LAB ACKNOWLEDGE
[2017-04-12] MEDS ORDERED: IPRATROPIUM/ALBUTEROL 0.5-2.5 MG/3 ML AMPUL NEB ONE (02:09)
[2017-04-12 02:23] LABS: ALCOHOL 50 mg/dL (NONE DETECTED)
[2017-04-12] MEDS ORDERED: LORAZEPAM 1 MG TABLET PO ONE (02:49)
--- NOTE | 2017-04-12 02:52 | ER Document Report ---
Doctor's Note Notes: 04/12/17 02:50 I was asked to see the patient due to his oxygen saturation dropping to 85%. He has been waiting to be discharged for about an hour and a half at the time I was notified. He was given additional breathing treatment to see if that would help. An alcohol level was ordered on the blood from earlier due to the appearance that he is going into alcohol withdrawal. Based on alcohol level of 50 around 9 PM, his alcohol level would be 0 at this time. He is also noted to have a bandage stuck to his left elbow. This was removed showing fresh wounds that do not look infected, but are bleeding. This will be cleaned and dressed appropriately. He is also given a DuoNeb treatment. He will receive 1 mg of Ativan to prevent him from going into alcohol withdrawal at this time. He is sitting on the end of the bed, he does have some tremors developing, when asked how his breathing is doing he states it feels pretty good right now. The patient states he is going home from here. He will not be given additional benzos, as he most likely will become intoxicated as soon as he gets home as he usually does.
[2017-04-12 03:30] VITALS: BP 106/60
--- NOTE | 2017-04-12 12:13 | EKG REPORT ---
SEVERITY:- OTHERWISE NORMAL ECG - SINUS RHYTHM ATRIAL PREMATURE COMPLEX : Confirmed by: Sruthi Rivas MD 12-Apr-2017 12:13:14
== END 2017-04-12 03:20 | disposition home or self-care (01) ==
LOC: ER 19:49
DX: J45.901 Unspecified asthma with (acute) exacerbation (principal); I10 Essential (primary) hypertension; D64.9 Anemia, unspecified; R06.02 Shortness of breath; F17.200 Nicotine dependence, unspecified, uncomplicated
CPT/HCPCS: 93005; 94640 ×2; 99285; 36415; 82553; 80307; 82550; 85025; 80053; 84484; 71010; 93010; A9270 ×7; J7512; J7620

== ENCOUNTER 2017-04-12 10:07 | Emergency (ER) | payer MEDICARE, MEDICAID ==
[2017-04-12 10:18] VITALS: BP 104/67
--- NOTE | 2017-04-12 10:19 | ER Document Report ---
ED Medical Screen (RME) - General Chief Complaint: Chest Pain Stated Complaint: CHEST PAIN Time Seen by Provider: 04/12/17 10:14 Mode of Arrival: Medic Information source: Patient, Emergency Med Personnel TRAVEL OUTSIDE OF THE [place] IN LAST 30 DAYS: No - HPI Onset: This morning Context: IN BED, PRIOR TO ARISING Quality of pain: Sharp Severity: Moderate Associated Symptoms: Shortness of breath - CHRONIC Exacerbated by: Coughing, Deep breathing Relieved by: Denies Similar symptoms previously: Yes - NUMEROUS TIMES Recently seen / treated by doctor: No - Related Data Smoking: Greater than 1 pack/day Frequency of alcohol use: Occasional Drug Abuse: None Allergies/Adverse Reactions: No Known Allergies Allergy (Verified 04/02/17 02:47) Past Medical History - General Information source: Patient - Social History Cigarette use (# per day): Yes Chew tobacco use (# tins/day): No Frequency of alcohol use: Occasional Drug Abuse: None Lives with: Alone Family history: None - Past Medical History Cardiac Medical History: Reports: Hx Coronary Artery Disease, Hx Heart Attack - [place] occured in 2002. Takes ASA now, used to be on hypertensive medications, Hx Hypercholesterolemia, Hx Hypertension Pulmonary Medical History: Reports: Hx Asthma, Hx Bronchitis, Hx COPD, Hx Pneumonia Renal/ Medical History: Denies: Hx Peritoneal Dialysis Musculoskeltal Medical History: Reports Hx Arthritis, Reports Hx Musculoskeletal Deformity, Reports Hx Musculoskeletal Trauma Psychiatric Medical History: Reports: Hx Borderline Personality Disorder, Hx Depression Traumatic Medical History: Reports: Hx Fractures - Left rib fractures with pneumothorax requiring chest tube on 05/23/2016 Past Surgical History: Reports: Hx Cardiac Catheterization - Immunizations Immunizations up to date: Yes Hx Diphtheria, Pertussis, Tetanus Vaccination: - unknown Physical Exam - General General appearance: Appears well, Alert In distress: None - Respiratory Chest status: Other - KYPHOSIS Breath sounds: Wheezing - FEW, END EXP. - Cardiovascular Rhythm: Regular Heart sounds: Normal auscultation Murmur: No - Abdominal Inspection: Normal Distension: No distension - Extremities General upper extremity: Other - SKIN TEAR L. FOREARM, NUMEROUS ECCHYMOSES. General lower extremity: Normal inspection. No: Edema - Psychological Associated symptoms: Normal affect, Normal mood
[2017-04-12 10:50] LABS: ABSOLUTE LYMPHOCYTES (AUTO) 0.3 10^3/uL (0.5-4.7); ABSOLUTE MONOCYTES (AUTO) 0.9 10^3/uL (0.1-1.4); ABSOLUTE NEUT (AUTO) 3.6 10^3/uL (1.7-8.2); BASOPHILS % (AUTO) 0.2 % (0-2); EOSINOPHILS % (AUTO) 0.1 % (0-6); HEMATOCRIT 31.5 % (37.9-51.0); HEMOGLOBIN 10.2 g/dL (13.5-17.0); HGB HCT DIFFERENCE -0.9; MEAN CORPUSCULAR HEMOGLOBIN 27.2 pg (27.0-33.4); MEAN CORPUSCULAR HGB CONC 32.3 g/dL (32.0-36.0); MEAN CORPUSCULAR VOLUME 84 fl (80-97); MONOCYTES % (AUTO) 18.6 % (3-13); RED BLOOD COUNT 3.75 10^6/uL (4.35-5.55); RED CELL DISTRIBUTION WIDTH 17.7 % (11.5-14.0); SEGMENTED NEUTROPHILS % (AUTO) 74.1 % (42-78); WHITE BLOOD COUNT 4.9 10^3/uL (4.0-10.5)
--- NOTE | 2017-04-12 10:56 | RADIOLOGY REPORT (SQ) ---
EXAM DESCRIPTION: CHEST SINGLE VIEW COMPLETED DATE/TIME: 04/12/2017 10:47 am REASON FOR STUDY: CHEST PAIN COMPARISON: 01/10/2017 EXAM PARAMETERS: NUMBER OF VIEWS: One view. TECHNIQUE: Single frontal radiographic view of the chest acquired. RADIATION DOSE: NA LIMITATIONS: None. FINDINGS: LUNGS AND PLEURA: There is mild pulmonary vascular congestion. No pulmonary infiltrate or pleural effusion is seen. MEDIASTINUM AND HILAR STRUCTURES: No masses. Contour normal. HEART AND VASCULAR STRUCTURES: Heart normal in size. Normal vasculature. BONES: Old rib fractures are present. HARDWARE: None in the chest. OTHER: No other significant finding. IMPRESSION: Mild pulmonary vascular congestion without CHF. TECHNICAL DOCUMENTATION: JOB ID: [id number]
[2017-04-12 11:03] LABS: ALANINE AMINOTRANSFERASE 46 U/L (21-72); ALBUMIN 3.8 g/dL (3.5-5.0); ALKALINE PHOSPHATASE 103 U/L (38-126); ANION GAP 12 (5-19); ASPARTATE AMINO TRANSFERASE 58 U/L (17-59); BILIRUBIN,DIRECT 0.3 mg/dL (0.0-0.4); BILIRUBIN,TOTAL 0.3 mg/dL (0.2-1.3); BLOOD UREA NITROGEN 5 mg/dL (7-20); CALCIUM 8.3 mg/dL (8.4-10.2); CARBON DIOXIDE 27 mmol/L (22-30); CHLORIDE 86 mmol/L (98-107); CREATINE KINASE 148 U/L (55-170); CREATININE RESULT 0.45 mg/dL (0.52-1.25); GLUCOSE 75 mg/dL (75-110); POTASSIUM 4.3 mmol/L (3.6-5.0); SODIUM 125.4 mmol/L (137-145); TOTAL PROTEIN 6.7 g/dL (6.3-8.2)
[2017-04-12 11:13] LABS: CREATINE KINASE MB 5.51 ng/mL (<4.55); TROPONIN I 0.028 ng/mL
[2017-04-12 11:21] LABS: ANISOCYTOSIS 2+; HYPOCHROMASIA SLIGHT; OVALOCYTES SLIGHT; POIKILOCYTOSIS SLIGHT; POLYCHROMASIA SLIGHT
[2017-04-12 11:22] LABS: PLATELET CLUMPS PRESENT; TOXIC GRANULATION SLIGHT
== END 2017-04-12 10:50 | disposition left against medical advice (07) ==
LOC: ER 10:07
DX: R07.9 Chest pain, unspecified (principal); J44.9 Chronic obstructive pulmonary disease, unspecified; R06.02 Shortness of breath; I25.10 Atherosclerotic heart disease of native coronary artery without angina pectoris; I25.2 Old myocardial infarction; I10 Essential (primary) hypertension; F17.210 Nicotine dependence, cigarettes, uncomplicated; Z87.01 Personal history of pneumonia (recurrent); Z87.81 Personal history of (healed) traumatic fracture; Z53.20 Procedure and treatment not carried out because of patient's decision for unspecified reasons
CPT/HCPCS: 36415; 71010; 80053; 82550; 82553; 84484; 85025; 99281

== ENCOUNTER 2017-04-12 18:18 | Emergency (ER) | payer MEDICARE, MEDICAID ==
[2017-04-12 18:25] VITALS: BP 94/53
[2017-04-12] MEDS ORDERED: IPRATROPIUM/ALBUTEROL 0.5-2.5 MG/3 ML AMPUL NEB ONE (18:42)
--- NOTE | 2017-04-12 18:48 | ER Document Report ---
ED Medical Screen (RME) - General Chief Complaint: Breathing Difficulty Stated Complaint: DIFFICULTY BREATHING Time Seen by Provider: 04/12/17 18:41 Mode of Arrival: Medic Information source: Patient, Emergency Med Personnel Notes: FREQUENT VISITOR TO E.D. HAS H/O C.O.P.D. AND RESTRICTIVE LUNG DISEASE, CONTINUES CHAIN-SMOKING HABIT. TRAVEL OUTSIDE OF THE [place] IN LAST 30 DAYS: No - HPI Onset: This morning Onset/Duration: Gradual Quality of pain: Other - SORENESS Associated Symptoms: Chest pain, Cough (productive), Hurts to breath, Shortness of breath Exacerbated by: Denies Relieved by: Denies Similar symptoms previously: Yes - NUMEROUS Recently seen / treated by doctor: Yes - [facility] E.DTed, THIS A.M., LEFT A.M.A. - Related Data Smoking: Cigarettes, Greater than 1 pack/day Frequency of alcohol use: Occasional Drug Abuse: None Allergies/Adverse Reactions: No Known Allergies Allergy (Verified 04/02/17 02:47) Past Medical History - General Information source: Emergency Med Personnel, [facility] Records - Social History Chew tobacco use (# tins/day): No Frequency of alcohol use: Social Drug Abuse: None Family history: None - Past Medical History Cardiac Medical History: Reports: Hx Coronary Artery Disease, Hx Heart Attack - [place] occured in 2002. Takes ASA now, used to be on hypertensive medications, Hx Hypercholesterolemia, Hx Hypertension Pulmonary Medical History: Reports: Hx Asthma, Hx Bronchitis, Hx COPD, Hx Pneumonia Renal/ Medical History: Denies: Hx Peritoneal Dialysis Musculoskeltal Medical History: Reports Hx Arthritis, Reports Hx Musculoskeletal Deformity, Reports Hx Musculoskeletal Trauma Psychiatric Medical History: Reports: Hx Borderline Personality Disorder, Hx Depression Traumatic Medical History: Reports: Hx Fractures - Left rib fractures with pneumothorax requiring chest tube on 05/23/2016 Past Surgical History: Reports: Hx Cardiac Catheterization - Immunizations Immunizations up to date: Yes Hx Diphtheria, Pertussis, Tetanus Vaccination: - unknown Review of Systems - Review of Systems Constitutional: No symptoms reported Cardiovascular: See HPI Respiratory: See HPI Gastrointestinal: No symptoms reported Physical Exam - Vital signs Vitals: Temp Pulse Resp BP Pulse Ox 98.3 F 100 22 H 94/53 L 90 L 04/12/17 18:22 04/12/17 18:22 04/12/17 18:22 04/12/17 18:22 04/12/17 18:22 Interpretation: Hypotensive, Tachycardic, Hypoxic, Tachypneic. No: Febrile - General General appearance: Alert, Other - APPEARS CHRONICALLY ILL In distress: None - Respiratory Respiratory status: No respiratory distress, Tachypnea Chest status: Nontender Breath sounds: Wheezing - MODERATE EXPIRATORY - Cardiovascular Rhythm: Regular Heart sounds: Normal auscultation Murmur: No - Back Back: Other - THORACIC KYPHOSIS - Extremities General upper extremity: Other - ECCHYMOSES General lower extremity: Normal inspection. No: Edema - Psychological Associated symptoms: Normal affect, Normal mood - Skin Skin Temperature: Warm Skin Moisture: Dry Skin Color: Ecchymosis - SCATTERED Skin Turgor: Loose Course - Vital Signs Vital signs: Temp Pulse Resp BP Pulse Ox 98.3 F 100 22 H 94/53 L 90 L 04/12/17 18:22 04/12/17 18:22 04/12/17 18:22 04/12/17 18:22 04/12/17 18:22
== END 2017-04-12 18:45 | disposition left against medical advice (07) ==
LOC: ER 18:18
DX: J44.9 Chronic obstructive pulmonary disease, unspecified (principal); R09.02 Hypoxemia; R07.1 Chest pain on breathing; R05 Cough; R00.0 Tachycardia, unspecified; R58 Hemorrhage, not elsewhere classified; R06.02 Shortness of breath; I95.9 Hypotension, unspecified; I25.10 Atherosclerotic heart disease of native coronary artery without angina pectoris; I25.2 Old myocardial infarction; I10 Essential (primary) hypertension; F17.200 Nicotine dependence, unspecified, uncomplicated; Z87.01 Personal history of pneumonia (recurrent); Z53.20 Procedure and treatment not carried out because of patient's decision for unspecified reasons
CPT/HCPCS: 99281

== ENCOUNTER 2017-04-12 23:06 | Emergency (ER) | payer MEDICARE, MEDICAID | END 2017-04-12 23:10 | disposition left against medical advice (07) | LOC: ER 23:06 | DX: Z53.21 Procedure and treatment not carried out due to patient leaving prior to being seen by health care provider (principal) ==

== ENCOUNTER 2018-03-01 15:28 | Emergency (ER) | payer MEDICARE, MEDICAID ==
--- NOTE | 2018-03-01 15:43 | ER Document Report ---
ED General - General Stated Complaint: SHORTNESS OF BREATH Time Seen by Provider: 03/01/18 15:38 Mode of Arrival: Ambulatory Information source: Patient Notes: 62-year-old man with a history of COPD, active smoking brought in by EMS with shortness of breath and wheezing. Patient given treatment prior to arrival. He states he feels much better. Patient denies any fever, chills, nausea vomiting. Is requesting to go. TRAVEL OUTSIDE OF THE [place] IN LAST 30 DAYS: No - HPI Onset: Just prior to arrival Onset/Duration: Sudden Quality of pain: No pain Severity: Moderate Pain Level: Denies Associated symptoms: Shortness of breath. denies: Fever Exacerbated by: Denies Relieved by: Denies Similar symptoms previously: Yes Recently seen / treated by doctor: Yes - Related Data Allergies/Adverse Reactions: No Known Allergies Allergy (Verified 04/02/17 02:47) Past Medical History - General Information source: Patient - Social History Smoking Status: Current Every Day Smoker Cigarette use (# per day): Yes - 1 pack per day smoker Chew tobacco use (# tins/day): No Smoking Education Provided: No Frequency of alcohol use: None Drug Abuse: None Lives with: Alone Family History: Reviewed & Not Pertinent, Arthritis, CAD, COPD Patient has suicidal ideation: No Patient has homicidal ideation: No - Past Medical History Cardiac Medical History: Reports: Hx Coronary Artery Disease, Hx Heart Attack - [place] occured in 2002. Takes ASA now, used to be on hypertensive medications, Hx Hypercholesterolemia, Hx Hypertension Pulmonary Medical History: Reports: Hx Asthma, Hx Bronchitis, Hx COPD, Hx Pneumonia Renal/ Medical History: Denies: Hx Peritoneal Dialysis Musculoskeltal Medical History: Reports Hx Arthritis, Reports Hx Musculoskeletal Deformity, Reports Hx Musculoskeletal Trauma Psychiatric Medical History: Reports: Hx Borderline Personality Disorder, Hx Depression Traumatic Medical History: Reports: Hx Fractures - Left rib fractures with pneumothorax requiring chest tube on 05/23/2016 Past Surgical History: Reports: Hx Cardiac Catheterization - Immunizations Immunizations up to date: Yes Hx Diphtheria, Pertussis, Tetanus Vaccination: - unknown Hx Pneumococcal Vaccination: 02/22/13 Review of Systems - Review of Systems Constitutional: See HPI EENT: No symptoms reported Cardiovascular: No symptoms reported Respiratory: See HPI Gastrointestinal: No symptoms reported Genitourinary: No symptoms reported Male Genitourinary: No symptoms reported Musculoskeletal: No symptoms reported Skin: No symptoms reported Hematologic/Lymphatic: No symptoms reported Neurological/Psychological: No symptoms reported Physical Exam - Vital signs Vitals: Pulse Resp BP Pulse Ox 94 18 113/69 99 03/01/18 15:45 03/01/18 15:45 03/01/18 15:45 03/01/18 15:45 Notes: Physical exam: GENERAL: XT 2-year-old man, alert and oriented 3, no acute distress, states his shortness of breath is resolved after nebulizer treatment by ambulance. HEAD: Atraumatic, normocephalic. EYES: Pupils equal round and reactive to light, extraocular movements intact, sclera anicteric, conjunctiva are normal. ENT: TMs normal, nares patent, oropharynx clear without exudates. Moist mucous membranes. NECK: Normal range of motion, supple without obvious mass or JVD. LUNGS: Breath sounds clear to auscultation bilaterally and equal. No wheezes rales or rhonchi. HEART: Regular rate and rhythm without murmurs, rubs or gallops. ABDOMEN: Soft, normoactive bowel sounds. No tenderness to palpation. No guarding, no rebound. No masses appreciated. EXTREMITIES: Normal range of motion, no pitting or edema. No clubbing or cyanosis. NEUROLOGICAL: Cranial nerves II through XII grossly intact. Normal speech, moving all extremities. PSYCH: Normal mood, normal affect. SKIN: Warm, Dry, normal turgor, no rashes or lesions noted. Course - Vital Signs Vital signs: Temp Pulse Resp BP Pulse Ox 94 18 113/69 99 03/01/18 15:45 03/01/18 15:45 03/01/18 15:45 03/01/18 15:45 Discharge - Discharge Clinical Impression: COPD exacerbation Condition: Stable Disposition: HOME, SELF-CARE Additional Instructions: Thank you for choosing [facility] for your care. The examination and treatment you have received in the Emergency Department today has been rendered on an emergency basis only and is not intended to be a substitute for complete medical care. You should contact your doctor as it is important that she/he examine you for any new or remaining problems. If given a copy of any lab tests or radiology reports, please bring them with you when you see your physician. If your problem worsens or new symptoms appear and you are unable to arrange prompt follow-up care, return to the Emergency Department. Specific signs to look out for: Worsening shortness of breath Primary Care Doctor's affiliated with [facility]: If you do not have a primary care doctor or you are unable to get an appointment during that time, you can try one of the doctor's below. These are internal medicine doctor's that have admitting priveledges to the hospital ( they will see you both in the office as well as in this hospital if you are ever hospitalized here). Dr. Karen [facility] [address], [place] [phone] Dr Adames Address: [address] , [place] [address] Dr Benjamin Address: [address] , [place] [address] If you don't have insurance: [facility] at [facility] which is a free clinic. [address], [place] [address] [phone] Referrals: LESLY BRYAN MD [Primary Care Provider] - Follow up as needed
[2018-03-01 15:46] VITALS: BP 113/69
== END 2018-03-01 15:48 | disposition home or self-care (01) ==
LOC: ER 15:28
DX: J44.1 Chronic obstructive pulmonary disease with (acute) exacerbation (principal); R06.02 Shortness of breath; I10 Essential (primary) hypertension; I25.10 Atherosclerotic heart disease of native coronary artery without angina pectoris; I25.2 Old myocardial infarction; F17.210 Nicotine dependence, cigarettes, uncomplicated
CPT/HCPCS: 99285

== ENCOUNTER 2018-03-01 20:28 | Emergency (ER) | payer MEDICARE, MEDICAID ==
[2018-03-01 20:39] VITALS: BP 162/78
[2018-03-01] MEDS ORDERED: IPRATROPIUM/ALBUTEROL 0.5-2.5 MG/3 ML AMPUL NEB ONE ×3 (20:44)
--- NOTE | 2018-03-01 20:46 | ER Document Report ---
ED General - General Chief Complaint: Abdominal Pain Stated Complaint: ABDOMINAL PAIN Time Seen by Provider: 03/01/18 20:44 Mode of Arrival: Ambulatory Information source: Patient Notes: This is a 62-year-old man with a history of COPD, active smoking who presents with abdominal pain and wheezing. Patient was seen earlier with wheezing and responded to albuterol and Atrovent and demanded to go home at that time. Now he presents with abdominal pain. He is audibly wheezing on exam. TRAVEL OUTSIDE OF THE [place] IN LAST 30 DAYS: No - HPI Onset: Just prior to arrival Onset/Duration: Sudden Quality of pain: Dull Severity: Moderate Pain Level: 2 Associated symptoms: Shortness of breath. denies: Chest pain, Fever, Nausea, Vomiting Exacerbated by: Denies Relieved by: Denies Similar symptoms previously: Yes Recently seen / treated by doctor: Yes - Related Data Allergies/Adverse Reactions: No Known Allergies Allergy (Verified 04/02/17 02:47) Past Medical History - General Information source: Patient - Social History Smoking Status: Current Every Day Smoker Cigarette use (# per day): Yes - 1 pack per day Chew tobacco use (# tins/day): No Smoking Education Provided: Yes - 5 minutes Frequency of alcohol use: None Drug Abuse: None Lives with: Alone Family History: Reviewed & Not Pertinent, Arthritis, CAD, COPD Patient has suicidal ideation: No Patient has homicidal ideation: No - Past Medical History Cardiac Medical History: Reports: Hx Coronary Artery Disease, Hx Heart Attack - [place] occured in 2002. Takes ASA now, used to be on hypertensive medications, Hx Hypercholesterolemia, Hx Hypertension Pulmonary Medical History: Reports: Hx Asthma, Hx Bronchitis, Hx COPD, Hx Pneumonia Renal/ Medical History: Denies: Hx Peritoneal Dialysis Musculoskeltal Medical History: Reports Hx Arthritis, Reports Hx Musculoskeletal Deformity, Reports Hx Musculoskeletal Trauma Psychiatric Medical History: Reports: Hx Borderline Personality Disorder, Hx Depression Traumatic Medical History: Reports: Hx Fractures - Left rib fractures with pneumothorax requiring chest tube on 05/23/2016 Past Surgical History: Reports: Hx Cardiac Catheterization - Immunizations Immunizations up to date: Yes Hx Diphtheria, Pertussis, Tetanus Vaccination: - unknown Hx Pneumococcal Vaccination: 02/22/13 Review of Systems - Review of Systems Constitutional: denies: Chills, Fever EENT: No symptoms reported Cardiovascular: No symptoms reported Respiratory: See HPI Gastrointestinal: See HPI Genitourinary: No symptoms reported Male Genitourinary: No symptoms reported Musculoskeletal: No symptoms reported Skin: No symptoms reported Hematologic/Lymphatic: No symptoms reported Neurological/Psychological: No symptoms reported Physical Exam - Vital signs Vitals: Temp Pulse Resp BP Pulse Ox 98.6 F 96 24 H 162/78 H 94 03/01/18 20:37 03/01/18 20:37 03/01/18 20:37 03/01/18 20:37 03/01/18 20:37 Notes: Physical exam: GENERAL: HEAD: Atraumatic, normocephalic. EYES: Pupils equal round and reactive to light, extraocular movements intact, sclera anicteric, conjunctiva are normal. ENT: TMs normal, nares patent, oropharynx clear without exudates. Moist mucous membranes. NECK: Normal range of motion, supple without obvious mass or JVD. LUNGS: Bilateral wheezing HEART: Regular rate and rhythm without murmurs, rubs or gallops. ABDOMEN: Soft, normoactive bowel sounds. No tenderness to palpation. 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 No guarding, no rebound. No masses appreciated. EXTREMITIES: Normal range of motion, no pitting or edema. No clubbing or cyanosis. NEUROLOGICAL: Cranial nerves II through XII grossly intact. Normal speech, moving all extremities. PSYCH: Normal mood, normal affect. SKIN: Warm, Dry, normal turgor, no rashes or lesions noted. Course - Re-evaluation Re-evalutation: 03/01/18 20:57 Patient had one dual neb in walked out the ER. - Vital Signs Vital signs: Temp Pulse Resp BP Pulse Ox 98.6 F 96 24 H 162/78 H 94 03/01/18 20:37 03/01/18 20:37 03/01/18 20:37 03/01/18 20:37 03/01/18 20:37 Discharge - Discharge Clinical Impression: COPD Condition: Stable Disposition: HOME, SELF-CARE Referrals: LESLY BRYAN MD [Primary Care Provider] - Follow up as needed
== END 2018-03-01 21:01 | disposition left against medical advice (07) ==
LOC: ER 20:28
DX: J44.9 Chronic obstructive pulmonary disease, unspecified (principal); R06.02 Shortness of breath; R10.9 Unspecified abdominal pain; F17.210 Nicotine dependence, cigarettes, uncomplicated; Z71.6 Tobacco abuse counseling; I25.10 Atherosclerotic heart disease of native coronary artery without angina pectoris; I10 Essential (primary) hypertension; I25.2 Old myocardial infarction
CPT/HCPCS: 99406; 94640; 99281; A9270; J7620

== ENCOUNTER 2018-03-02 05:50 | Emergency (ER) | payer MEDICARE, MEDICAID ==
[2018-03-02 06:25] VITALS: BP 142/92
[2018-03-02 06:40] LABS: ALANINE AMINOTRANSFERASE 78 U/L (21-72); ALBUMIN 4.6 g/dL (3.5-5.0); ALKALINE PHOSPHATASE 49 U/L (38-126); ANION GAP 14 (5-19); ASPARTATE AMINO TRANSFERASE 163 U/L (17-59); BILIRUBIN,DIRECT 0.5 mg/dL (0.0-0.4); BILIRUBIN,TOTAL 0.9 mg/dL (0.2-1.3); BLOOD UREA NITROGEN 5 mg/dL (7-20); CALCIUM 8.9 mg/dL (8.4-10.2); CARBON DIOXIDE 25 mmol/L (22-30); CHLORIDE 88 mmol/L (98-107); GLUCOSE 76 mg/dL (75-110); POTASSIUM 4.5 mmol/L (3.6-5.0); SODIUM 126.8 mmol/L (137-145); TOTAL PROTEIN 7.7 g/dL (6.3-8.2)
[2018-03-02 06:50] LABS: HEMATOCRIT 43.1 % (37.9-51.0); HEMOGLOBIN 14.8 g/dL (13.5-17.0); MEAN CORPUSCULAR HEMOGLOBIN 30.1 pg (27.0-33.4); MEAN CORPUSCULAR HGB CONC 34.3 g/dL (32.0-36.0); MEAN CORPUSCULAR VOLUME 88 fl (80-97); PLATELET COUNT 213 10^3/uL (150-450); RED CELL DISTRIBUTION WIDTH 15.4 % (11.5-14.0); WHITE BLOOD COUNT 7.1 10^3/uL (4.0-10.5)
[2018-03-02 07:46] LABS: ABSOLUTE LYMPHOCYTES# (MANUAL) 1.8 10^3/uL (0.5-4.7); ABSOLUTE MONOCYTES # (MANUAL) 1.6 10^3/uL (0.1-1.4); ABSOLUTE NEUTROPHILS# (MANUAL) 3.7 10^3/uL (1.7-8.2); BASOPHILS % (MANUAL) 0 % (0-2); EOSINOPHILS % (MANUAL) 0 % (0-6); LYMPHOCYTES % (MANUAL) 26 % (13-45); MONOCYTES % (MANUAL) 22 % (3-13); SEGMENTED NEUTROPHILS % (MAN) 52 % (42-78); TOTAL CELLS COUNTED 100
[2018-03-02 07:47] LABS: ANISOCYTOSIS SLIGHT; PLATELET COMMENT ADEQUATE; PLATELET LARGE PRESENT
== END 2018-03-02 06:15 | disposition left against medical advice (07) ==
LOC: ER 05:50
DX: Z53.21 Procedure and treatment not carried out due to patient leaving prior to being seen by health care provider (principal)
CPT/HCPCS: 36415; 80053; 85025

== ENCOUNTER 2018-03-02 07:38 | Emergency (ER) | payer MEDICARE, MEDICAID ==
[2018-03-02 07:54] VITALS: BP 151/75
== END 2018-03-02 08:00 | disposition left against medical advice (07) ==
LOC: ER 07:38
DX: Z53.21 Procedure and treatment not carried out due to patient leaving prior to being seen by health care provider (principal)

== ENCOUNTER 2018-03-02 08:55 | Emergency (ER) | payer MEDICARE, MEDICAID ==
--- NOTE | 2018-03-02 09:38 | EKG REPORT ---
SEVERITY:- OTHERWISE NORMAL ECG - SINUS TACHYCARDIA : Confirmed by: Lázaro De La Garza MD 02-Mar-2018 09:37:41
[2018-03-02] MEDS ORDERED: IPRATROPIUM/ALBUTEROL 0.5-2.5 MG/3 ML AMPUL NEB ONE ×2 (09:51→09:52)
[2018-03-02] MEDS ORDERED: PREDNISONE 20 MG TABLET PO ONE (09:52)
[2018-03-02] MEDS ORDERED: DOXYCYCLINE HYCLATE 100 MG TABLET PO ONE (09:54)
--- NOTE | 2018-03-02 09:54 | ER Document Report ---
ED General - General Chief Complaint: Breathing Difficulty Stated Complaint: DIFFICULTY BREATHING Time Seen by Provider: 03/02/18 09:41 Mode of Arrival: Ambulatory Information source: Patient Notes: 62-year-old male with hypertension, hyperlipidemia, COPD, CAD, continuous tobacco use presents with complaint of shortness of breath that has been ongoing for several days. Patient admits to an associated productive cough, shortness of breath. He states that he has recently increase in sputum production. He denies any fever, chills, nausea, vomiting, chest pain, back pain, abdominal pain, dysuria, hematuria. Patient has called EMS several times and then has left without being seen. When I asked him why he does this he does not give me a clear answer. Patient requesting a breathing treatment only. He is declining imaging, blood work. TRAVEL OUTSIDE OF THE [place] IN LAST 30 DAYS: No - HPI Onset: Other Onset/Duration: Gradual, Persistent, Worse Quality of pain: No pain Severity: None Associated symptoms: Productive cough, Shortness of breath Exacerbated by: Denies Relieved by: Denies Similar symptoms previously: Yes Recently seen / treated by doctor: Yes - Related Data Allergies/Adverse Reactions: No Known Allergies Allergy (Verified 03/02/18 08:58) Past Medical History - General Information source: Patient - Social History Smoking Status: Current Every Day Smoker Cigarette use (# per day): Yes - 15 Smoking Education Provided: Yes - Patient counselled regarding cessation for 4 minutes Frequency of alcohol use: None Drug Abuse: None Lives with: Alone Family History: Reviewed & Not Pertinent, Arthritis, CAD, COPD Patient has suicidal ideation: No Patient has homicidal ideation: No - Past Medical History Cardiac Medical History: Reports: Hx Coronary Artery Disease, Hx Heart Attack - [place] occured in 2002. Takes ASA now, used to be on hypertensive medications, Hx Hypercholesterolemia, Hx Hypertension Pulmonary Medical History: Reports: Hx Asthma, Hx Bronchitis, Hx COPD, Hx Pneumonia Renal/ Medical History: Denies: Hx Peritoneal Dialysis Musculoskeltal Medical History: Reports Hx Arthritis, Reports Hx Musculoskeletal Deformity, Reports Hx Musculoskeletal Trauma Psychiatric Medical History: Reports: Hx Borderline Personality Disorder, Hx Depression Traumatic Medical History: Reports: Hx Fractures - Left rib fractures with pneumothorax requiring chest tube on 05/23/2016 Past Surgical History: Reports: Hx Cardiac Catheterization - Immunizations Immunizations up to date: Yes Hx Diphtheria, Pertussis, Tetanus Vaccination: - unknown Hx Pneumococcal Vaccination: 02/22/13 Review of Systems - Review of Systems Notes: REVIEW OF SYSTEMS: CONSTITUTIONAL : Denies fever, chills, or sweats. Denies recent illness. Denies weight loss, recent hospitalizations. EENT: Denies visual changes, eye pain. Denies nasal or sinus congestion or discharge. Denies sore throat, oral lesions, difficulty swallowing. CARDIOVASCULAR: Denies chest pain. Denies palpitations. Denies lower extremity edema. RESPIRATORY: Denies hemoptysis GASTROINTESTINAL: Denies abdominal pain or distention. Denies nausea, vomiting , or diarrhea. Denies blood in vomitus, stools, or per rectum. Denies black, tarry stools. Denies constipation. GENITOURINARY: Denies difficulty urinating, painful urination, frequency, blood in urine, or vaginal discharge. MUSCULOSKELETAL: Denies back or neck pain or stiffness. Denies joint pain or swelling. SKIN: Denies rash, lesions or sores. HEMATOLOGIC : Denies easy bruising or bleeding. LYMPHATIC: Denies swollen glands. NEUROLOGICAL: Denies confusion or altered mental status. Denies passing out or loss of consciousness. Denies dizziness or lightheadedness. Denies headache. Denies weakness or paralysis. Denies problems difficulty with ambulation, slurred speech. Denies sensory loss, numbness, or tingling. Denies seizures. PSYCHIATRIC: Denies anxiety or stress. Denies depression, suicidal ideation, or homicidal ideation. Denies visual or auditory hallucinations. Physical Exam - Vital signs Vitals: Temp Pulse Resp BP Pulse Ox 97.9 F 104 H 20 136/117 H 96 03/02/18 09:07 03/02/18 09:07 03/02/18 09:07 03/02/18 09:07 03/02/18 09:07 Interpretation: Normal, Tachycardic Notes: Repeat blood pressure in triage 155/77 - Notes Notes: PHYSICAL EXAMINATION: GENERAL: Disheveled, no acute distress HEAD: Atraumatic, normocephalic. EYES: Pupils equal round and reactive to light, extraocular movements intact, sclera anicteric, conjunctiva are normal. ENT: Nares patent, oropharynx clear without exudates. Moist mucous membranes. NECK: Normal range of motion, supple without lymphadenopathy LUNGS: Expiratory wheezing. No accessory muscle use. Patient is in no respiratory distress. He is able to speak in full sentences. HEART: Regular rate and rhythm without murmurs ABDOMEN: Soft, nontender, nondistended abdomen. No guarding, no rebound. No masses appreciated. Musculoskeletal: Normal range of motion, no pitting or edema. No cyanosis. NEUROLOGICAL: Cranial nerves grossly intact. Normal speech, normal gait. Normal sensory, motor exams PSYCH: Normal mood, normal affect. SKIN: Warm, Dry, normal turgor, no rashes or lesions noted. Course - Re-evaluation Re-evalutation: 03/02/18 09:58 62-year-old male with COPD, hypertension, CAD, hyperlipidemia presents for the fifth time in 2 days with complaints of shortness of breath and productive cough. Patient states that he has run out of his home medications. He will not answer why he continues to call EMS and leaves without being seen. Patient denies any fever, chills, chest pain. Upon arrival vitals are reviewed. Patient was initially documented to be markedly hypertensive but on repeat blood pressure in triage his blood pressure now is 155/77. He is mildly tachycardic at a rate of 101. Patient is not tachypneic or hypoxic. EKG shows sinus tachycardia. Patient declines any chest x-ray, blood work. He states I just need a breathing treatment. He has an upcoming appointment with his physician tomorrow and declines any home going refills for his nebulizer machine. Patient was given breathing treatments, prednisone and started on doxycycline. I did discuss with him that EMS is becoming increasingly upset with his misuse of their service. Patient provided the opportunity to ask questions, and express concerns. Discharge instructions discussed. Patient is agreeable with discharge home. Return indications explained and discussed with the patient who displays understanding. Patient encouraged to return to the emergency department immediately with any concerns. 03/02/18 09:59 03/02/18 10:01 03/02/18 10:28 On reevaluation patient states that he is feeling much better. Wheezing has resolved. Still declining any further workup including blood work and chest x- ray. Patient was discharged home with prednisone, doxycycline and an albuterol MDI. - Vital Signs Vital signs: Temp Pulse Resp BP Pulse Ox 97.9 F 104 H 20 155/77 H 96 03/02/18 09:07 03/02/18 09:07 03/02/18 09:07 03/02/18 09:48 03/02/18 09:07 - EKG Interpretation by Me EKG shows normal: Sinus rhythm Rate: Tachycardia Rhythm: NSR Discharge - Discharge Clinical Impression: COPD exacerbation Condition: Good Instructions: Chronic Obstructive Lung Disease ([facility]), Stop Smoking ([facility]) Additional Instructions: Follow up with your physician tomorrow for further care or return to the ED IMMEDIATELY if symptoms worsen or new concerns occur. If you cannot afford to follow up with your primary care physician a list of low cost clinics have been provided at the end of your discharge papers as well. Prescriptions: Albuterol Sulfate [Proair HFA Inhalation Aerosol 8.5 gm MDI] 2 puff IH Q4H PRN # 1 mdi PRN Reason: Doxycycline Hyclate 100 mg PO BID #14 capsule Prednisone [Deltasone 20 mg Tablet] 3 tab PO DAILY 5 Days #15 tablet Referrals: LESLY BRYAN MD [Primary Care Provider] - Follow up as needed
[2018-03-02 10:37] VITALS: BP 156/87
== END 2018-03-02 10:39 | disposition home or self-care (01) ==
LOC: ER 08:55
DX: J44.1 Chronic obstructive pulmonary disease with (acute) exacerbation (principal); I10 Essential (primary) hypertension; E78.00 Pure hypercholesterolemia, unspecified; F17.210 Nicotine dependence, cigarettes, uncomplicated; I25.10 Atherosclerotic heart disease of native coronary artery without angina pectoris; I25.2 Old myocardial infarction; Z79.82 Long term (current) use of aspirin
CPT/HCPCS: 93005; 99406; 94640 ×2; 99284; 93010; A9270 ×3; J7512; J7620

== ENCOUNTER 2018-03-03 08:59 | Emergency (ER) | payer MEDICARE, MEDICAID ==
[2018-03-03 09:10] VITALS: BP 140/76
--- NOTE | 2018-03-03 09:32 | ER Document Report ---
ED Respiratory Problem - General Chief Complaint: Shortness Of Breath Stated Complaint: SHORTNESS OF BREATH Time Seen by Provider: 03/03/18 09:29 Mode of Arrival: Medic Information source: Patient TRAVEL OUTSIDE OF THE [place] IN LAST 30 DAYS: No - HPI Patient complains to provider of: COPD, Short of breath, Other - ALSO, INQUIRES ABOUT ETOH DETOX Onset: Yesterday Duration: Intermittent episodes Quality of pain: No pain Context: Hx COPD Short of Breath: Mild Cough: Productive Sputum amount: Small Sputum color: Yellow Sputum consistency: Mucoid Associated symptoms: Cough, Short of breath Similar symptoms previously: Yes Recently seen / treated by doctor: Yes - SEEN HERE YESTERDAY W/ SIMILAR, REFUSED COMPLETE W/U. - Related Data Allergies/Adverse Reactions: No Known Allergies Allergy (Verified 03/02/18 08:58) Past Medical History - General Information source: Patient - Social History Smoking Status: Current Every Day Smoker Chew tobacco use (# tins/day): Yes Frequency of alcohol use: Heavy Drug Abuse: None Lives with: Alone Family History: Reviewed & Not Pertinent, Arthritis, CAD, COPD Patient has suicidal ideation: No Patient has homicidal ideation: No - Past Medical History Cardiac Medical History: Reports: Hx Coronary Artery Disease, Hx Heart Attack - [place] occured in 2002. Takes ASA now, used to be on hypertensive medications, Hx Hypercholesterolemia, Hx Hypertension Pulmonary Medical History: Reports: Hx Asthma, Hx Bronchitis, Hx COPD, Hx Pneumonia Renal/ Medical History: Denies: Hx Peritoneal Dialysis Musculoskeltal Medical History: Reports Hx Arthritis, Reports Hx Musculoskeletal Deformity, Reports Hx Musculoskeletal Trauma Psychiatric Medical History: Reports: Hx Borderline Personality Disorder, Hx Depression Traumatic Medical History: Reports: Hx Fractures - Left rib fractures with pneumothorax requiring chest tube on 05/23/2016 Past Surgical History: Reports: Hx Cardiac Catheterization - Immunizations Immunizations up to date: Yes Hx Diphtheria, Pertussis, Tetanus Vaccination: - unknown Hx Pneumococcal Vaccination: 02/22/13 Physical Exam - Vital signs Vitals: Temp Pulse Resp BP Pulse Ox 98.1 F 85 18 140/76 H 97 03/03/18 09:09 03/03/18 09:09 03/03/18 09:09 03/03/18 09:09 03/03/18 09:09 Interpretation: Hypertensive. No: Tachycardic, Hypoxic, Tachypneic - General General appearance: Appears well, Alert In distress: None - HEENT Head: Normocephalic Eyes: Normal Conjunctiva: Normal Ears: Normal Nasal: Normal Mouth/Lips: Normal Mucous membranes: Normal - Respiratory Respiratory status: No respiratory distress Chest status: Nontender Breath sounds: Rhonchi - SCATTERED, ALL SAWANT, Wheezing - FEW END EXP. - Cardiovascular Rhythm: Regular Heart sounds: Normal auscultation Murmur: No - Abdominal Inspection: Normal Distension: No distension Bowel sounds: Normal - Back Back: Normal - Extremities General upper extremity: Normal inspection General lower extremity: Normal inspection - Neurological Neuro grossly intact: Yes Cognition: Normal Orientation: AAOx4 - Psychological Associated symptoms: Normal affect, Normal mood - Skin Skin Temperature: Warm Skin Moisture: Dry Skin Color: Normal Skin Turgor: Elastic Course - Vital Signs Vital signs: Temp Pulse Resp BP Pulse Ox 98.1 F 85 18 140/76 H 97 03/03/18 09:09 03/03/18 09:09 03/03/18 09:09 03/03/18 09:09 03/03/18 09:09 Discharge - Discharge Clinical Impression: COPD exacerbation, Alcohol abuse, Tobacco abuse Condition: Stable Disposition: AGAINST MEDICAL ADVICE Referrals: LESLY BRYAN MD [Primary Care Provider] - Follow up as needed
[2018-03-03] MEDS ORDERED: IPRATROPIUM/ALBUTEROL 0.5-2.5 MG/3 ML AMPUL NEB ONE (09:48)
--- NOTE | 2018-03-03 09:55 | RADIOLOGY REPORT (SQ) ---
EXAM DESCRIPTION: CHEST SINGLE VIEW COMPLETED DATE/TIME: 03/03/2018 9:39 am REASON FOR STUDY: sob COMPARISON: 04/12/2017 NUMBER OF VIEWS: One view. TECHNIQUE: Single frontal radiographic view of the chest acquired. LIMITATIONS: None. FINDINGS: LUNGS AND PLEURA: No opacities, masses or pneumothorax. No pleural effusion. Attenuated bl ood vessels and flattened patrick-diaphragms. MEDIASTINUM AND HILAR STRUCTURES: No masses. Contour normal. HEART AND VASCULAR STRUCTURES: Stable heart size. Normal vasculature. BONES: No acute findings. HARDWARE: None in the chest. OTHER: No other significant finding. IMPRESSION: COPD. NO ACUTE RADIOGRAPHIC FINDING IN THE CHEST. TECHNICAL DOCUMENTATION: JOB ID: [id number] [employer]- All Rights Reserved Reading location - IP/workstation name: [email or web address]
== END 2018-03-03 09:55 | disposition left against medical advice (07) ==
LOC: ER 08:59
DX: J44.1 Chronic obstructive pulmonary disease with (acute) exacerbation (principal); F17.200 Nicotine dependence, unspecified, uncomplicated; F10.10 Alcohol abuse, uncomplicated; R06.02 Shortness of breath; R05 Cough; I25.10 Atherosclerotic heart disease of native coronary artery without angina pectoris; I10 Essential (primary) hypertension
CPT/HCPCS: 36415; 71045; 99285

== ENCOUNTER 2018-04-11 10:19 | Emergency (ER) | payer MEDICARE, MEDICAID ==
[2018-04-11] MEDS ORDERED: IPRATROPIUM/ALBUTEROL 0.5-2.5 MG/3 ML AMPUL NEB ONE (11:11)
--- NOTE | 2018-04-11 11:11 | ER Document Report ---
ED Respiratory Problem - General Chief Complaint: Congestion Stated Complaint: SHORTNESS OF BREATH Time Seen by Provider: 04/11/18 11:10 Notes: 62-year-old male. History of COPD here for evaluation of shortness of breath, ventral wall hernia, chronic back pain, scoliosis, medication questions. No fever. No vomiting at this time.no Chest pain at this time. TRAVEL OUTSIDE OF THE [place] IN LAST 30 DAYS: No - Related Data Allergies/Adverse Reactions: No Known Allergies Allergy (Verified 03/02/18 08:58) Past Medical History - General Information source: Patient - Social History Smoking Status: Current Every Day Smoker Cigarette use (# per day): Yes Frequency of alcohol use: None Drug Abuse: None Lives with: Alone Family History: Reviewed & Not Pertinent, Arthritis, CAD, COPD - Past Medical History Cardiac Medical History: Reports: Hx Coronary Artery Disease, Hx Heart Attack - DC occured in 2002. Takes ASA now, used to be on hypertensive medications, Hx Hypercholesterolemia, Hx Hypertension Pulmonary Medical History: Reports: Hx Asthma, Hx Bronchitis, Hx COPD, Hx Pneumonia Renal/ Medical History: Denies: Hx Peritoneal Dialysis Musculoskeletal Medical History: Reports Hx Arthritis, Reports Hx Musculoskeletal Deformity, Reports Hx Musculoskeletal Trauma Psychiatric Medical History: Reports: Hx Borderline Personality Disorder, Hx Depression Traumatic Medical History: Reports: Hx Fractures - Left rib fractures with pneumothorax requiring chest tube on 05/23/2016 Past Surgical History: Reports: Hx Cardiac Catheterization - Immunizations Immunizations up to date: Yes Hx Diphtheria, Pertussis, Tetanus Vaccination: - unknown Hx Pneumococcal Vaccination: 02/22/13 Review of Systems - Review of Systems Constitutional: denies: Fever, Malaise, Weakness EENT: denies: Ear pain, Throat pain, Difficulty swallowing Cardiovascular: denies: Chest pain, Palpitations, Heart racing Respiratory: Cough, Short of breath. denies: Hurts to breathe, Wheezing Gastrointestinal: Other - Abdominal hernia. denies: Abdominal pain, Diarrhea, Nausea Musculoskeletal: Back pain. denies: Joint pain, Joint swelling Skin: denies: Dryness, Lesions, Lumps, Rash Physical Exam - Vital signs Vitals: Temp Pulse Resp BP Pulse Ox 97.5 F 88 18 121/71 95 04/11/18 10:24 04/11/18 10:24 04/11/18 10:24 04/11/18 10:24 04/11/18 10:24 Interpretation: Normal - General General appearance: Appears well, Alert - HEENT Head: Normocephalic, Atraumatic Eyes: Normal Pupils: PERRL - Respiratory Respiratory status: No respiratory distress Chest status: Nontender Breath sounds: Normal Chest palpation: Normal - Cardiovascular Rhythm: Regular Heart sounds: Normal auscultation Murmur: No - Abdominal Inspection: Other - Small easily reducible ventral wall hernia Distension: No distension Bowel sounds: Normal Tenderness: Nontender Organomegaly: No organomegaly - Back Back: Normal, Nontender, Scoliosis - Extremities General upper extremity: Normal inspection, Nontender, Normal color, Normal ROM , Normal temperature General lower extremity: Normal inspection, Nontender, Normal color, Normal ROM , Normal temperature, Normal weight bearing. No: Sylvia's sign - Neurological Neuro grossly intact: Yes Cognition: Normal Orientation: AAOx4 Hines Coma Scale Eye Opening: Spontaneous Federico Coma Scale Verbal: Oriented Federico Coma Scale Motor: Obeys Commands Hines Coma Scale Total: 15 Speech: Normal Motor strength normal: LUE, RUE, LLE, RLE Sensory: Normal - Psychological Associated symptoms: Normal affect, Normal mood - Skin Skin Temperature: Warm Skin Moisture: Dry Skin Color: Normal Course - Re-evaluation Re-evalutation: 04/11/18 11:24 Instructed patient that I do not have anything to offer with regards to his chronic pain. Should continue to take Tylenol or ibuprofen or naproxen. Instructed patient was given follow-up information for general surgeon.. Will give him an inhaler for his chronic COPD and shortness of breath today. Will DC at this time. - Vital Signs Vital signs: Temp Pulse Resp BP Pulse Ox 97.5 F 88 18 121/71 95 04/11/18 10:24 04/11/18 10:24 04/11/18 10:24 04/11/18 10:24 04/11/18 10:24 Discharge - Discharge Clinical Impression: Ventral hernia Qualifiers: Obstruction and gangrene presence: without obstruction or gangrene Qualified Code(s): K43.9 - Ventral hernia without obstruction or gangrene Condition: Good Disposition: HOME, SELF-CARE Instructions: Hernia ([facility]) Referrals: LESLY BRYAN MD [Primary Care Provider] - Follow up as needed HERIBERTO WINTER MD [ACTIVE STAFF] - Follow up in 1 week
[2018-04-11 11:24] VITALS: BP 133/89
[2018-04-11] MEDS ORDERED: ALBUTEROL SULFATE HFA (90 MCG/PUFF) 8 GM MDI (1 MDI/ER DISP) IH ONE (11:30)
== END 2018-04-11 11:37 | disposition home or self-care (01) ==
LOC: ER 10:19
DX: K43.9 Ventral hernia without obstruction or gangrene (principal); J44.9 Chronic obstructive pulmonary disease, unspecified; R05 Cough; I10 Essential (primary) hypertension; M54.9 Dorsalgia, unspecified; G89.29 Other chronic pain; I25.10 Atherosclerotic heart disease of native coronary artery without angina pectoris; I25.2 Old myocardial infarction; F17.200 Nicotine dependence, unspecified, uncomplicated
CPT/HCPCS: 99283; J3490

== ENCOUNTER → 2018-05-15 | Day surgery (SDC) | payer MEDICARE, MEDICAID ==
[2018-05-07 10:41] LABS: HEMATOCRIT 43.2 % (37.9-51.0); HEMOGLOBIN 14.6 g/dL (13.5-17.0); MEAN CORPUSCULAR HEMOGLOBIN 30.2 pg (27.0-33.4); MEAN CORPUSCULAR HGB CONC 33.8 g/dL (32.0-36.0); MEAN CORPUSCULAR VOLUME 90 fl (80-97); PLATELET COUNT 213 10^3/uL (150-450); RED BLOOD COUNT 4.83 10^6/uL (4.35-5.55); RED CELL DISTRIBUTION WIDTH 15.7 % (11.5-14.0); WHITE BLOOD COUNT 4.5 10^3/uL (4.0-10.5)
--- NOTE | 2018-05-07 11:17 | RADIOLOGY REPORT (SQ) ---
EXAM DESCRIPTION: CHEST PA/LATERAL COMPLETED DATE/TIME: 05/07/2018 10:27 am REASON FOR STUDY: PRE-OP COMPARISON: Priors going back to early 2014. TECHNIQUE: Frontal and lateral radiographic views of the chest acquired. NUMBER OF VIEWS: Two view. LIMITATIONS: None. FINDINGS: LUNGS AND PLEURA: Chronic hyperinflation, scarring and other evidence of COPD. Faint nodu lar density in the right lateral lung base, frontal view only. Variably seen on prior studies but deal spected to be chronic nipple shadow or similar. No developing lesions or acute infiltrate. MEDIASTINUM AND HILAR STRUCTURES: Stable contours. HEART AND VASCULAR STRUCTURES: Normal heart size without failure. BONES: Osteopenic. Kyphotic appearance secondary to midthoracic chronic compression fractures. HARDWARE: None in the chest. OTHER: No other significant finding. IMPRESSION: Chronic lung changes. Includes COPD. No acute or suspicious abnormality evident. TECHNICAL DOCUMENTATION: JOB ID: [id number] [employer]- All Rights Reserved Reading location - IP/workstation name: [email or web address]
[~2018-05-15] MED LIST: ACETAMINOPHEN 0 MG/0 ML RTUPB IV ONE; ACETAMINOPHEN 325 MG TABLET PO PRN; ALBUTEROL SULFATE 0.083% NEB 2.5 MG/3 ML AMPUL NEB ONE; CEFAZOLIN 2 GM/D5W RTU 2 GM/50 ML RTUPB IV PRN; FENTANYL CITRATE INJ/PF 100 MCG/2 ML AMPUL ONE; HYDROMORPHONE HCL INJ/PF 2 MG/ML AMPULE ONE; IPRATROPIUM/ALBUTEROL 0.5-2.5 MG/3 ML AMPUL NEB ONE; LACTATED RINGERS 1000 ML IV PRN; MIDAZOLAM 2 MG/2 ML INJ ONE; PROPOFOL INJ 200 MG/20 ML VIAL IV ONE; RINGERS SOLUTION,LACTATED 500 ML IV PRN
[2018-05-15 13:27] VITALS: BP 104/67
[2018-05-15 14:29] LABS: INTERNATIONAL RATION (INR) 0.96; PROTHROMBIN TIME 13.3 SEC (11.4-15.4)
[2018-05-15 14:30] LABS: PARTIAL THROMBOPLASTIN TIME 36.2 SEC (23.5-35.8)
[2018-05-15 14:45] LABS: ANION GAP 10 (5-19); BLOOD UREA NITROGEN 5 mg/dL (7-20); CALCIUM 8.9 mg/dL (8.4-10.2); CARBON DIOXIDE 26 mmol/L (22-30); CHLORIDE 101 mmol/L (98-107); GLUCOSE 80 mg/dL (75-110); POTASSIUM 4.2 mmol/L (3.6-5.0); SODIUM 136.8 mmol/L (137-145)
== END ==
LOC: OROUT 12:06
PROVIDERS: ATTEND Surgery
DX: K43.9 Ventral hernia without obstruction or gangrene (principal); Z01.818 Encounter for other preprocedural examination; I25.10 Atherosclerotic heart disease of native coronary artery without angina pectoris; J44.9 Chronic obstructive pulmonary disease, unspecified; I10 Essential (primary) hypertension; M54.9 Dorsalgia, unspecified; Z86.19 Personal history of other infectious and parasitic diseases; Z72.0 Tobacco use
CPT/HCPCS: 36415 ×2; 85027; 85610; 85730; 80048; 71046; J3010; A9270; J0690; J0131; J1170; J2250; J2704

== ENCOUNTER 2018-05-19 15:57 | Emergency (ER) | payer MEDICARE, MEDICAID ==
[2018-05-19 16:06] VITALS: BP 122/72
[2018-05-19] MEDS ORDERED: IPRATROPIUM/ALBUTEROL 0.5-2.5 MG/3 ML AMPUL NEB ONE (16:33)
[2018-05-19] MEDS ORDERED: PREDNISONE 20 MG TABLET PO ONE (16:33)
[2018-05-19] MEDS ORDERED: ALBUTEROL SULFATE HFA (90 MCG/PUFF) 8 GM MDI (1 MDI/ER DISP) IH ONE (16:34)
--- NOTE | 2018-05-19 16:40 | ER Document Report ---
ED Medical Screen (RME) - General Chief Complaint: Breathing Difficulty Stated Complaint: DIFFICULTY BREATHING Time Seen by Provider: 05/19/18 16:33 Mode of Arrival: Ambulatory Information source: Patient Notes: This is a 62-year-old man with COPD who presents to the emergency room with wheezing and shortness of breath. He did try to go to the [facility] but it was closed. He denies any fever, chills, productive cough. TRAVEL OUTSIDE OF THE [place] IN LAST 30 DAYS: No - HPI Onset: Just prior to arrival Onset/Duration: Gradual Quality of pain: No pain Severity: None Pain Level: Denies Associated Symptoms: Shortness of breath. denies: Chest pain, Fever Exacerbated by: Movement Relieved by: Remaining still Similar symptoms previously: Yes Recently seen / treated by doctor: Yes - Related Data Smoking: Cigarettes Frequency of alcohol use: Heavy Drug Abuse: None Allergies/Adverse Reactions: No Known Allergies Allergy (Verified 05/15/18 13:19) Past Medical History - General Information source: Patient - Social History Cigarette use (# per day): Yes - 1 pack per cigarettes a day Chew tobacco use (# tins/day): No Frequency of alcohol use: Heavy Drug Abuse: None Lives with: Alone Family history: None - Past Medical History Cardiac Medical History: Reports: Hx Coronary Artery Disease - cardiac stents x2 , 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 Takes ASA now, used to be on hypertensive medications, Hx Hypercholesterolemia, Hx Hypertension Pulmonary Medical History: Reports: Hx Asthma, Hx COPD, Hx Pneumonia Denies: Hx Bronchitis Neurological Medical History: Denies: Hx Cerebrovascular Accident, Hx Seizures Renal/ Medical History: Denies: Hx Peritoneal Dialysis Musculoskeltal Medical History: Reports Hx Arthritis - chronic spine disorder, Reports Hx Musculoskeletal Deformity, Reports Hx Musculoskeletal Trauma Psychiatric Medical History: Reports: Hx Borderline Personality Disorder, Hx Depression Traumatic Medical History: Reports: Hx Fractures - Left rib fractures with pneumothorax requiring chest tube on 05/23/2016 Past Surgical History: Reports: Hx Cardiac Catheterization - Immunizations Immunizations up to date: Yes Hx Diphtheria, Pertussis, Tetanus Vaccination: Yes History of Influenza Vaccine for 06/2017 - 11/2017 Season: Yes Influenza Administration Date for 06/2017 - 11/2017 Season: 06/16/17 Review of Systems - Review of Systems Constitutional: denies: Chills, Fever EENT: No symptoms reported Cardiovascular: denies: Chest pain, Palpitations, Heart racing, Orthopnea, Syncope Respiratory: Short of breath, Wheezing Gastrointestinal: No symptoms reported Genitourinary: No symptoms reported Male Genitourinary: No symptoms reported Musculoskeletal: No symptoms reported Skin: No symptoms reported Hematologic/Lymphatic: No symptoms reported Neurological/Psychological: No symptoms reported Physical Exam - Vital signs Vitals: Temp Pulse Resp BP Pulse Ox 97.9 F 81 18 122/72 95 05/19/18 16:05 05/19/18 16:05 05/19/18 16:05 05/19/18 16:05 05/19/18 16:05 Notes: Physical exam: GENERAL: 32-year-old man, alert and oriented 3. HEAD: Atraumatic, normocephalic. EYES: Pupils equal round and reactive to light, extraocular movements intact, sclera anicteric, conjunctiva are normal. ENT: TMs normal, nares patent, oropharynx clear without exudates. Moist mucous membranes. NECK: Normal range of motion, supple without obvious mass or JVD. LUNGS: Wheezing bilaterally HEART: Regular rate and rhythm without murmurs, rubs or gallops. ABDOMEN: Soft, normoactive bowel sounds. No tenderness to palpation. No guarding, no rebound. No masses appreciated. EXTREMITIES: Normal range of motion, no pitting or edema. No clubbing or cyanosis. NEUROLOGICAL: Cranial nerves II through XII grossly intact. Normal speech, moving all extremities. PSYCH: Normal mood, normal affect. SKIN: Warm, Dry, normal turgor, no rashes or lesions noted. Course - Vital Signs Vital signs: Temp Pulse Resp BP Pulse Ox 97.9 F 81 18 122/72 95 05/19/18 16:05 05/19/18 16:05 05/19/18 16:05 05/19/18 16:05 05/19/18 16:05 Doctor's Discharge - Discharge Clinical Impression: COPD exacerbation Condition: Stable Disposition: HOME, SELF-CARE Additional Instructions: Recommendations: Use the inhaler as needed: 2 puffs every 6 hours. You can use your nebulizer every 4-6 hours as previously done. You were given prednisone today: The next prednisone is due tomorrow. Return to the emergency room for worsening shortness of breath. Follow-up with your primary care doctor tomorrow. Prescriptions: Albuterol Sulfate [Albuterol Sulfate 2.5mg/3 mL] 1 vial IH Q4 PRN #10 vial PRN Reason: Prednisone [Deltasone 20 mg Tablet] 3 tab PO DAILY 4 Days #12 tablet Referrals: LESLY BRYAN MD [Primary Care Provider] - Follow up tomorrow
== END 2018-05-19 16:48 | disposition home or self-care (01) ==
LOC: ER 15:57
DX: J44.1 Chronic obstructive pulmonary disease with (acute) exacerbation (principal); R06.02 Shortness of breath; R06.2 Wheezing; F17.210 Nicotine dependence, cigarettes, uncomplicated; I25.10 Atherosclerotic heart disease of native coronary artery without angina pectoris; I25.2 Old myocardial infarction; I10 Essential (primary) hypertension; Z79.82 Long term (current) use of aspirin
CPT/HCPCS: 94640; 99284; A9270 ×2; J3490; J7512; J7620

== ENCOUNTER 2018-06-05 05:37 | Day surgery (SDC) | payer MEDICARE, MEDICAID ==
[~2018-06-05 05:37] MED LIST changes: -ACETAMINOPHEN 0 MG/0 ML RTUPB IV ONE; -ALBUTEROL SULFATE 0.083% NEB 2.5 MG/3 ML AMPUL NEB ONE; +CEFAZOLIN 2 GM/D5W RTU 2 GM/50 ML RTUPB IV ONE; -FENTANYL CITRATE INJ/PF 100 MCG/2 ML AMPUL ONE; -HYDROMORPHONE HCL INJ/PF 2 MG/ML AMPULE ONE; -IPRATROPIUM/ALBUTEROL 0.5-2.5 MG/3 ML AMPUL NEB ONE; -MIDAZOLAM 2 MG/2 ML INJ ONE; -PROPOFOL INJ 200 MG/20 ML VIAL IV ONE; -RINGERS SOLUTION,LACTATED 500 ML IV PRN
[2018-06-05 06:23] LABS: INTERNATIONAL RATION (INR) 0.94
--- NOTE | 2018-06-05 06:41 | RADIOLOGY REPORT (SQ) ---
EXAM DESCRIPTION: XR CHEST 1 VIEW COMPLETED DATE/TME: 06/05/2018 00:00 CLINICAL HISTORY: Pre op. Hernia repair. COMPARISON: 05/07/2018 FINDINGS: Single frontal view of the chest. Atherosclerotic calcification of the thoracic aorta. Heart is not enlarged. No consolidation, pneumothorax, or pleural effusion. No acute osseous abnormalities. Upper abdominal soft tissues are unremarkable. IMPRESSION: 1. No acute pulmonary process identified.
[2018-06-05] MEDS ORDERED: BUPIVACAINE HCL 0.25 % INJ/PF (2.5 MG/1 ML) 30 ML VIAL ONE (06:45)
[2018-06-05] MEDS ORDERED: KETOROLAC TROMETHAMINE 60 MG/2 ML SDV ONE (07:11)
[2018-06-05] MEDS ORDERED: FENTANYL CITRATE INJ/PF 100 MCG/2 ML AMPUL ONE (07:11)
[2018-06-05] MEDS ORDERED: ONDANSETRON HCL INJ/PF 4 MG/2 ML SDV ONE (07:12)
[2018-06-05] MEDS ORDERED: PROPOFOL INJ 200 MG/20 ML VIAL IV ONE (07:12)
[2018-06-05] MEDS ORDERED: ACETAMINOPHEN 1,000 MG/100 ML RTUPB IV ONE (07:12)
[2018-06-05] MEDS ORDERED: MIDAZOLAM 2 MG/2 ML INJ ONE (07:12)
[2018-06-05] MEDS ORDERED: DEXAMETHASONE SOD PHOSPHATE INJ 4 MG/1 ML VIAL ONE (07:12)
[2018-06-05 07:13] LABS: HEMATOCRIT 39.3 % (37.9-51.0); HEMOGLOBIN 13.4 g/dL (13.5-17.0); MEAN CORPUSCULAR HEMOGLOBIN 30.9 pg (27.0-33.4); MEAN CORPUSCULAR VOLUME 91 fl (80-97); PLATELET COUNT 157 10^3/uL (150-450); RED BLOOD COUNT 4.33 10^6/uL (4.35-5.55); WHITE BLOOD COUNT 5.9 10^3/uL (4.0-10.5)
[2018-06-05] MEDS ORDERED: EPHEDRINE SULFATE INJ 50 MG/1 ML AMPULE ONE (07:35)
[2018-06-05] MEDS ORDERED: PROMETHAZINE HCL INJ 25 MG/1 ML VIAL IV PRN ×2 (07:42)
[2018-06-05] MEDS ORDERED: OXYCODONE-ACETAMINOPHEN 5-325 MG TABLET PO PRN ×2 (07:42)
[2018-06-05] MEDS ORDERED: MORPHINE SULFATE 10 MG/ML INJ IV PRN (07:42)
[2018-06-05] MEDS ORDERED: FENTANYL CITRATE INJ/PF 100 MCG/2 ML AMPUL IV PRN ×3 (07:42)
[2018-06-05] MEDS ORDERED: MEPERIDINE HCL/PF INJ 25 MG/1 ML DISP.SYRIN IV PRN (07:42)
[2018-06-05] MEDS ORDERED: ONDANSETRON HCL INJ/PF 4 MG/2 ML SDV IV PRN (07:42)
[2018-06-05] MEDS ORDERED: DIPHENHYDRAMINE HCL 50 MG/ML VIAL IV PRN (07:42)
[2018-06-05 07:44] LABS: ANION GAP 8 (5-19); BLOOD UREA NITROGEN 12 mg/dL (7-20); CALCIUM 8.9 mg/dL (8.4-10.2); CARBON DIOXIDE 28 mmol/L (22-30); CHLORIDE 98 mmol/L (98-107); GLUCOSE 86 mg/dL (75-110); POTASSIUM 4.3 mmol/L (3.6-5.0); SODIUM 133.5 mmol/L (137-145)
--- NOTE | 2018-06-05 08:22 | Discharge Summary ---
Discharge Summary (SDC) - Discharge Final Diagnosis: epigastric hernia Date of Surgery: 06/05/18 Discharge Date: 06/05/18 Condition: Stable Treatment or Instructions: Discharge home. Diet as tolerated. Activity: No lifting greater than 10 pounds 6 weeks. Follow-up with me in 7-10 days. Okay to shower in 48 hours. No tub baths 2 weeks. Morrow 10/325 mg p.o. every 6 hours as needed pain. Referrals: LESLY BRYAN MD [Primary Care Provider] - Discharge Diet: As Tolerated Respiratory Treatments at Home: Deep Breathing/Coughing, Incentive Spirometer Discharge Activity: No Lifting Over 10 Pounds Home Care Assistance: None Needed Report the Following to Your Physician Immediately: Shortness of Breath, Nausea , Vomiting, Increase in Pain, Fever over 101 Degrees, Unusual Bleeding, Redness , Swelling, Warmth
--- NOTE | 2018-06-05 08:26 | Operative Report ---
Nonrecallable Operative Report DATE OF SURGERY: 06/05/18 PREOPERATIVE DIAGNOSIS: Epigastric hernia POSTOPERATIVE DIAGNOSIS: Epigastric hernia OPERATION: Open repair of epigastric hernia with mesh. SURGEON: INA LANDAVERDE ANESTHESIA: GA TISSUE REMOVED OR ALTERED: None COMPLICATIONS: None apparent ESTIMATED BLOOD LOSS: Minimal PROCEDURE: Drains/implants: [address] hernia mesh. Procedure in detail: After informed consent was obtained, the patient was brought to the operating room and laid in the supine position. The area of the abdomen was prepped and draped in normal sterile fashion. A 15 blade scalpel was used to create a vertical midline incision over the area of the hernia defect. Dissection was carried through the subcutaneous tissue using blunt dissection and Bovie electrocautery. The hernia defect was identified. The fascia was cleaned of any preperitoneal fat. The dissection remained in the preperitoneal position. A generous space was created for the mesh in the preperitoneal space. The defect was measured at approximately 2 cm in maximal diameter. An [address] Lux [address] hernia mesh was chosen to adequately cover the defect. The mesh was placed into the preperitoneal space. It was sutured in 4 quadrants using 0 Prolene suture in mattress fashion. The overlying fascia was then closed, also using 0 Prolene suture in figure-of- eight fashion. The overlying skin was then closed using 4-0 Vicryl Rapide suture in subcuticular fashion. A dressing was placed and the procedure was concluded. All sponge, instrument, and needle counts were correct 2. Condition: Stable.
[2018-06-05] MEDS: FENTANYL CITRATE INJ/PF 100 MCG/2 ML AMPUL ONE ×2 (08:45→08:50)
[2018-06-05] MEDS ORDERED: HYDROCODONE/ACETAMINOPHEN 10-325 MG TABLET ONE (09:28)
[2018-06-05] MEDS ORDERED: SUCCINYLCHOLINE CHLORIDE INJ 200 MG/10 ML VIAL ONE (09:36)
[2018-06-05 11:59] VITALS: BP 134/74
--- NOTE | 2018-06-05 13:46 | EKG REPORT ---
SEVERITY:- DEFECTIVE ECG - POSSIBLSINUS RHYTHM.REPEAT EKG LOW VOLTAGE IN FRONTAL LEADS : Confirmed by: Sruthi Rivas MD 05-Jun-2018 13:45:34
== END 2018-06-05 10:20 | disposition home or self-care (01) ==
LOC: OROUT 05:37
PROVIDERS: ATTEND Surgery
DX: K43.9 Ventral hernia without obstruction or gangrene (principal); I25.10 Atherosclerotic heart disease of native coronary artery without angina pectoris; J44.9 Chronic obstructive pulmonary disease, unspecified; I10 Essential (primary) hypertension; M54.9 Dorsalgia, unspecified; G89.29 Other chronic pain; M19.90 Unspecified osteoarthritis, unspecified site; Z86.19 Personal history of other infectious and parasitic diseases
CPT/HCPCS: 36415; 85027; 85610; 85730; 80048; 71045; 93005; 93010; 49560; 49568; C1781; J2250; J1100; J3490; J1885; J3010; J0330; J2405; J2704; J0690; J0131; A9270; 752

== ENCOUNTER 2018-08-02 06:52 | Emergency (ER) | payer MEDICARE, MEDICAID ==
[2018-08-02] MEDS ORDERED: METOCLOPRAMIDE HCL ORAL SOLN 10 MG/10 ML UDCUP PO ONE (07:00)
[2018-08-02] MEDS ORDERED: MAG HYDROX/AL HYDROX/SIMETH SUSP 30 ML UDCUP PO ONE (07:00)
[2018-08-02] MEDS ORDERED: LIDOCAINE 2% VISCOUS SOLN 20 ML UDCUP PO ONE (07:00)
[2018-08-02] MEDS ORDERED: IPRATROPIUM/ALBUTEROL 0.5-2.5 MG/3 ML AMPUL NEB ONE (07:00)
[2018-08-02] MEDS ORDERED: NORMAL SALINE 1000 ML 1,000 ML IV ONE (07:01)
[2018-08-02] MEDS ORDERED: MAGNESIUM SULFATE/D5W 1 GM/100 ML RTUPB IV ONE (07:01)
[2018-08-02 07:05] VITALS: BP 135/83
[2018-08-02 07:14] LABS: ABSOLUTE BASOPHILS # (AUTO) 0.1 10^3/uL (0.0-0.2); ABSOLUTE LYMPHOCYTES (AUTO) 1.5 10^3/uL (0.5-4.7); ABSOLUTE MONOCYTES (AUTO) 0.5 10^3/uL (0.1-1.4); ABSOLUTE NEUT (AUTO) 2.4 10^3/uL (1.7-8.2); BASOPHILS % (AUTO) 1.7 % (0-2); EOSINOPHILS % (AUTO) 0.4 % (0-6); HEMATOCRIT 37.1 % (37.9-51.0); HEMOGLOBIN 12.7 g/dL (13.5-17.0); LYMPHOCYTES % (AUTO) 33.8 % (13-45); MEAN CORPUSCULAR HEMOGLOBIN 30.6 pg (27.0-33.4); MEAN CORPUSCULAR HGB CONC 34.2 g/dL (32.0-36.0); MEAN CORPUSCULAR VOLUME 90 fl (80-97); MONOCYTES % (AUTO) 11.6 % (3-13); PLATELET COUNT 163 10^3/uL (150-450); RED BLOOD COUNT 4.13 10^6/uL (4.35-5.55); RED CELL DISTRIBUTION WIDTH 15.7 % (11.5-14.0); SEGMENTED NEUTROPHILS % (AUTO) 52.5 % (42-78); TOTAL CELLS COUNTED % (AUTO) 100 %; WHITE BLOOD COUNT 4.5 10^3/uL (4.0-10.5)
--- NOTE | 2018-08-02 07:27 | RADIOLOGY REPORT (SQ) ---
EXAM DESCRIPTION: XR CHEST 1 VIEW COMPLETED DATE/TME: 08/02/2018 07:00 CLINICAL HISTORY: 62 years, Male, sob COMPARISON: EXAM DESCRIPTION: CLINICAL HISTORY: sob COMPARISON: None. FINDINGS: Single view of the chest is submitted. Cardiac silhouette is normal. There is consolidation at the medial right lung base. The lungs are otherwise clear. IMPRESSION: Right lung base consolidation. NUMBER OF VIEWS: TECHNIQUE: LIMITATIONS: None. FINDINGS: IMPRESSION: 2010 [facility] [employer]- All Rights Reserved
[2018-08-02 07:30] LABS: ALANINE AMINOTRANSFERASE 35 U/L (21-72); ALBUMIN 4.2 g/dL (3.5-5.0); ALCOHOL 90 mg/dL (NONE DETECTED); ALKALINE PHOSPHATASE 69 U/L (38-126); ANION GAP 13 (5-19); ASPARTATE AMINO TRANSFERASE 67 U/L (17-59); BILIRUBIN,DIRECT 0.3 mg/dL (0.0-0.4); BILIRUBIN,TOTAL 0.5 mg/dL (0.2-1.3); BLOOD UREA NITROGEN 7 mg/dL (7-20); CALCIUM 8.9 mg/dL (8.4-10.2); CARBON DIOXIDE 27 mmol/L (22-30); CHLORIDE 96 mmol/L (98-107); GLUCOSE 91 mg/dL (75-110); LIPASE 58.3 U/L (23-300); POTASSIUM 4.4 mmol/L (3.6-5.0); TOTAL PROTEIN 7.3 g/dL (6.3-8.2)
--- NOTE | 2018-08-02 07:35 | ER Document Report ---
ED General - General Chief Complaint: Chest Pain Stated Complaint: CHEST PAIN Time Seen by Provider: 08/02/18 07:00 TRAVEL OUTSIDE OF THE [place] IN LAST 30 DAYS: No - HPI Patient complains to provider of: Chest pain shortness of breath Notes: Patient coming in today for evaluation chest pain shortness of breath. Patient is very well-known to this facility. Patient has history significant for smoking and EtOH abuse. Patient does have a history of coming in by EMS and signing out immediately AGAINST MEDICAL ADVICE. Today patient states that approximately 2 AM woke up with anterior chest wall pain. Patient also states have some shortness of breath. Denies any fevers chills nausea vomiting diarrhea patient denies any recent alcohol denies any recent travel. Patient upon my evaluation is resting comfortably. Patient denies any recent trauma. Patient denies any productive cough or sputum. Patient denies any exacerbating or relieving factors. 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 Takes ASA now, used to be on hypertensive medications, Hx Hypercholesterolemia, Hx Hypertension Pulmonary Medical History: Reports: Hx Asthma, Hx COPD, Hx Pneumonia Denies: Hx Bronchitis Neurological Medical History: Denies: Hx Cerebrovascular Accident, Hx Seizures Renal/ Medical History: Denies: Hx Peritoneal Dialysis Musculoskeletal Medical History: Reports Hx Arthritis - chronic spine disorder, Reports Hx Musculoskeletal Deformity, Reports Hx Musculoskeletal Trauma Psychiatric Medical History: Reports: Hx Borderline Personality Disorder, Hx Depression Traumatic Medical History: Reports: Hx Fractures - Left rib fractures with pneumothorax requiring chest tube on 05/23/2016 Past Surgical History: Reports: Hx Cardiac Catheterization - Immunizations Immunizations up to date: Yes Hx Diphtheria, Pertussis, Tetanus Vaccination: Yes Hx Pneumococcal Vaccination: 02/22/13 Review of Systems - Review of Systems Constitutional: No symptoms reported EENT: No symptoms reported Cardiovascular: Chest pain Respiratory: Short of breath Gastrointestinal: No symptoms reported Genitourinary: No symptoms reported Male Genitourinary: No symptoms reported Musculoskeletal: No symptoms reported Skin: No symptoms reported Hematologic/Lymphatic: No symptoms reported Neurological/Psychological: No symptoms reported -: Yes All other systems reviewed and negative Physical Exam - Vital signs Vitals: Pulse Ox 94 08/02/18 07:00 Interpretation: Normal - General General appearance: Appears well, Alert - HEENT Head: Normocephalic, Atraumatic Eyes: Normal Pupils: PERRL - Respiratory Respiratory status: No respiratory distress Chest status: Tender - Tenderness of the anterior chest wall reproduces patient' s pain. Breath sounds: Normal Chest palpation: Normal - Cardiovascular Rhythm: Regular Heart sounds: Normal auscultation Murmur: No - Abdominal Inspection: Normal Distension: No distension Bowel sounds: Normal Tenderness: Nontender Organomegaly: No organomegaly - Back Back: Normal, Nontender - Extremities General upper extremity: Normal inspection, Nontender, Normal color, Normal ROM , Normal temperature General lower extremity: Normal inspection, Nontender, Normal color, Normal ROM , Normal temperature, Normal weight bearing. No: Sylvia's sign - Neurological Neuro grossly intact: Yes Cognition: Normal Orientation: AAOx4 Federico Coma Scale Eye Opening: Spontaneous Federico Coma Scale Verbal: Oriented [place] Coma Scale Motor: Obeys Commands Federico Coma Scale Total: 15 Speech: Normal Motor strength normal: LUE, RUE, LLE, RLE Sensory: Normal - Psychological Associated symptoms: Normal affect, Normal mood - Skin Skin Temperature: Warm Skin Moisture: Dry Skin Color: Normal Course - Re-evaluation Re-evalutation: 08/02/18 07:35 Patient with significant history of COPD alcohol abuse coming in for shortness of breath chest wall pain. Patient EKG does not show any acute changes at this time. Patient will have chest x-ray and blood work performed. 08/02/18 07:37 08/02/18 07:50 Notified by nursing staff the patient wishes to leave at this time. Upon my entrance to the examination room to reevaluate the patient patient is actively getting himself dressed. Patient states feeling better at this time. Patient states understanding of the risk and benefits of leaving without repeating a second troponin patient states was to be discharged at this time. Initial laboratory studies EKG chest x-ray did not show any acute pathology. Patient was educated about gradually decreasing his alcohol intake along with stopping smoking. Patient states understanding. Patient still make his own medical decisions walking with a steady gait. Patient will be discharged at his request - Vital Signs Vital signs: Temp Pulse Resp BP Pulse Ox 21 H 135/83 H 94 08/02/18 07:03 08/02/18 07:03 08/02/18 07:03 - Laboratory Result Diagrams: 08/02/18 07:01 08/02/18 07:01 Laboratory results interpreted by me: 08/02/18 08/02/18 07:01 07:01 RBC 4.13 L Hgb 12.7 L Hct 37.1 L RDW 15.7 H Sodium 136.0 L Chloride 96 L AST 67 H - Diagnostic Test Radiology results interpreted by me: 08/02/18 07:38 Chest x-ray was reviewed and compared to previous patient does have a looks to be some scarring of the right lung base no definitive consolidation is new. - EKG Interpretation by Me EKG shows normal: Sinus rhythm - EKG shows normal sinus rhythm rate of 94 MO 128 QRS duration 88 QT QTc corrected [id number] segment depressions or elevations no T wave inversions. Comparison of EKG from 03/02/2018 shows no acute changes. Discharge - Discharge Clinical Impression: Medically noncompliant, Tobacco abuse, SOB (shortness of breath), Alcohol abuse , Chest wall pain Chest pain Qualifiers: Chest pain type: unspecified Qualified Code(s): R07.9 - Chest pain, unspecified Condition: Good Instructions: Anti-Inflammatory Medication ([facility]), Chest Pain of Unclear Cause ( [facility]), Chest Wall Pain ([facility]) Additional Instructions: Laboratory studies at this time not show any acute pathology. Chest x-rays not show any signs of acute infection. I discussed the risk and benefits of staying here in the hospital however you do have decided to leave at this time. Stated understanding of the risk and benefits understand that the workup was not complete. However recommend she follow-up with your primary care physician gradually decrease her alcohol intake stop smoking. Return to ER if your symptoms worsen. Forms: Smoking Cessation Education Referrals: LESLY BRYAN MD [Primary Care Provider] - Follow up as needed
--- NOTE | 2018-08-02 09:56 | EKG REPORT ---
SEVERITY:- BORDERLINE ECG - SINUS RHYTHM BORDERLINE INFERIOR Q WAVES : Confirmed by: Renee Gill 02-Aug-2018 09:55:48
== END 2018-08-02 07:51 | disposition home or self-care (01) ==
LOC: ER 06:52
DX: F10.10 Alcohol abuse, uncomplicated (principal); R07.9 Chest pain, unspecified; R06.02 Shortness of breath; F17.210 Nicotine dependence, cigarettes, uncomplicated; J44.9 Chronic obstructive pulmonary disease, unspecified; Z91.14 Patient's other noncompliance with medication regimen; I25.10 Atherosclerotic heart disease of native coronary artery without angina pectoris; I25.2 Old myocardial infarction
CPT/HCPCS: 93005; 94640; 99285; 96365; 36415; 80307; 83690; 83735; 85025; 80053; 84484; 71045; 93010; J3490; A9270 ×2; J3475; J7030; J7620

== ENCOUNTER 2018-08-03 21:10 | Emergency (ER) | payer MEDICARE, MEDICAID ==
[2018-08-03 21:41] LABS: ABSOLUTE BASOPHILS # (AUTO) 0.1 10^3/uL (0.0-0.2); ABSOLUTE LYMPHOCYTES (AUTO) 1.5 10^3/uL (0.5-4.7); ABSOLUTE MONOCYTES (AUTO) 0.7 10^3/uL (0.1-1.4); ABSOLUTE NEUT (AUTO) 1.9 10^3/uL (1.7-8.2); BASOPHILS % (AUTO) 1.2 % (0-2); EOSINOPHILS % (AUTO) 0.8 % (0-6); HEMATOCRIT 37.4 % (37.9-51.0); HEMOGLOBIN 13.1 g/dL (13.5-17.0); LYMPHOCYTES % (AUTO) 36.1 % (13-45); MEAN CORPUSCULAR HEMOGLOBIN 31.2 pg (27.0-33.4); MEAN CORPUSCULAR VOLUME 89 fl (80-97); MONOCYTES % (AUTO) 16.2 % (3-13); PLATELET COUNT 154 10^3/uL (150-450); RED BLOOD COUNT 4.19 10^6/uL (4.35-5.55); RED CELL DISTRIBUTION WIDTH 15.2 % (11.5-14.0); SEGMENTED NEUTROPHILS % (AUTO) 45.7 % (42-78); TOTAL CELLS COUNTED % (AUTO) 100 %; WHITE BLOOD COUNT 4.1 10^3/uL (4.0-10.5)
[2018-08-03] MEDS ORDERED: DOXYCYCLINE HYCLATE 100 MG TABLET PO ONE (21:43)
[2018-08-03] MEDS ORDERED: PREDNISONE 20 MG TABLET PO ONE (21:44)
[2018-08-03] MEDS ORDERED: DIAZEPAM 5 MG TABLET PO ONE (21:45)
[2018-08-03] MEDS ORDERED: IPRATROPIUM/ALBUTEROL 0.5-2.5 MG/3 ML AMPUL NEB ONE (21:46)
[2018-08-03] MEDS ORDERED: NICOTINE 21 MG/24 HR PATCH.TD24 TD ONE (21:47)
--- NOTE | 2018-08-03 21:50 | ER Document Report ---
ED General - General Chief Complaint: Breathing Difficulty Stated Complaint: RESPIRATORY DISTRESS Time Seen by Provider: 08/03/18 21:39 Notes: Patient is a 62-year-old male with a past medical history of alcoholism, tobacco abuse, COPD, hypertension, who presents with complaints of cough, sputum production, general weakness and shortness of breath. The patient was seen in the emergency department yesterday for similar symptoms, left AGAINST MEDICAL ADVICE prior to receiving all of the diagnostic test results. He returns today by EMS stating that his symptoms have worsened. He has been using his nebulizer at home without much improvement. Exerting himself worsens his shortness of breath and cough. He is uncertain of whether or not he has had fever at home. He has not seen his general doctor regarding today's concerns. TRAVEL OUTSIDE OF THE [place] 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 Takes ASA now, used to be on hypertensive medications, Hx Hypercholesterolemia, Hx Hypertension Pulmonary Medical History: Reports: Hx Asthma, Hx COPD, Hx Pneumonia Denies: Hx Bronchitis Neurological Medical History: Denies: Hx Cerebrovascular Accident, Hx Seizures Renal/ Medical History: Denies: Hx Peritoneal Dialysis Musculoskeletal Medical History: Reports Hx Arthritis - chronic spine disorder, Reports Hx Musculoskeletal Deformity, Reports Hx Musculoskeletal Trauma Psychiatric Medical History: Reports: Hx Borderline Personality Disorder, Hx Depression Traumatic Medical History: Reports: Hx Fractures - Left rib fractures with pneumothorax requiring chest tube on 05/23/2016 Past Surgical History: Reports: Hx Cardiac Catheterization - Immunizations Immunizations up to date: Yes Hx Diphtheria, Pertussis, Tetanus Vaccination: Yes Hx Pneumococcal Vaccination: 02/22/13 Review of Systems - Review of Systems Notes: Constitutional: Negative for fever. HENT: Negative for sore throat. Eyes: Negative for visual changes. Cardiovascular: Negative for chest pain. Respiratory: Positive for shortness of breath and cough Gastrointestinal: Negative for abdominal pain, vomiting or diarrhea. Genitourinary: Negative for dysuria. Musculoskeletal: Negative for back pain. Skin: Negative for rash. Neurological: Negative for headaches, weakness or numbness. 10 point ROS negative except as marked above and in HPI. Physical Exam - Vital signs Vitals: Pulse Ox 96 08/03/18 21:16 Interpretation: Normal Notes: PHYSICAL EXAMINATION: GENERAL: Appears much older than stated age but in no acute distress HEAD: Atraumatic, normocephalic. EYES: Pupils equal round and reactive to light, extraocular movements intact, sclera anicteric, conjunctiva are normal. ENT: nares patent, oropharynx clear without exudates. Moderately dry mucous membranes. NECK: Normal range of motion, supple without lymphadenopathy LUNGS: Faint expiratory wheezing in all lung lerner. Good air movement throughout. No distress or retractions. HEART: Regular rate and rhythm without murmurs ABDOMEN: Soft, nontender, normoactive bowel sounds. No guarding, no rebound. No masses appreciated. EXTREMITIES: Normal range of motion, no pitting or edema. No cyanosis. NEUROLOGICAL: No focal neurological deficits. Moves all extremities spontaneously and on command. PSYCH: Normal mood, normal affect. SKIN: Warm, Dry, normal turgor, no rashes or lesions noted. Course - Re-evaluation Re-evalutation: 08/03/18 21:52 Patient presents with complaints of cough, sob, feels like he has pneumonia. Was seen yesterday and his CXR did show a RLL pneumonia but left prior to getting results. Mild wheezing at time of presentation but vitals do not show significant hypoxemia or tachypnea. No retractions. Patient did clinically improve after receiving nebulizers here in the emergency department. CXR does show a right lower lobe pneumonia. Laboratories do not show acute kidney injury or significant leukocytosis. Patient able to ambulate without any respiratory distress. Based on patient's overall reassuring assessment, I believe they are stable for outpatient management with steroids and oral doxycycline. Curb 65 score is 0. Patient has nebulizers at home. I do not suspect an acute alternative pathology at this time based on history and exam including acute pulmonary embolus, ACS, pneumothorax, or aortic dissection. At this time will discharge with return precautions and follow-up recommendations. Verbal discharge instructions given a the bedside and opportunity for questions given. Medication warnings reviewed. Patient is in agreement with this plan and has verbalized understanding of return precautions and the need for primary care follow-up in the next 24-72 hours. - Vital Signs Vital signs: Temp Pulse Resp BP Pulse Ox 97.8 F 86 19 138/78 H 97 08/03/18 22:00 08/03/18 21:23 08/03/18 22:01 08/03/18 22:00 08/03/18 22:01 - Laboratory Result Diagrams: 08/03/18 21:29 08/03/18 21:29 Laboratory results interpreted by me: 08/03/18 08/03/18 21:29 21:29 RBC 4.19 L Hgb 13.1 L Hct 37.4 L RDW 15.2 H Monocytes % 16.2 H Sodium 132.2 L Chloride 91 L BUN 5 L AST 72 H - Diagnostic Test Radiology reviewed: Image reviewed, Reports reviewed Radiology results interpreted by me: 08/03/18 22:19 Chest x-ray: Right lower lobe infiltrate Discharge - Discharge Clinical Impression: COPD exacerbation, Alcohol abuse Right lower lobe pneumonia Qualifiers: Pneumonia type: due to unspecified organism Qualified Code(s): J18.1 - Lobar pneumonia, unspecified organism Condition: Good Disposition: HOME, SELF-CARE Additional Instructions: You have been diagnosed with a pneumonia. It is very important that you take all of your antibiotics until they are gone even if you are feeling better. Please return to the emergency department immediately if you began having worsening shortness of breath, become confused, have worsening pain, pass out, have persistent vomiting that prevents you from being able to drink fluids for more than 12 hours, or have any other symptoms that are worrisome to you. Please follow-up with your primary care doctor in the next 1-2 days. You were seen for a COPD exacerbation. Your symptoms improved with treatment here in the emergency department. However, it is very important that you return to the emergency department immediately if you began to have worsening difficulty breathing that does not respond to your normal home nebulizers. You are also being sent home on a five-day course of steroids that you should start taking tomorrow. Please also follow closely with your primary care physician. You should eturn to emergency department if you develop fever greater than 101, persistent cough, persistent vomiting, pass out, or any other symptoms that are concerning to you. Prescriptions: Doxycycline Hyclate 100 mg PO BID #20 capsule Prednisone [Deltasone 20 mg Tablet] 2 tab PO DAILY 5 Days tablet Referrals: LESLY BRYAN MD [Primary Care Provider] - Follow up in 3-5 days
[2018-08-03 21:54] LABS: ALANINE AMINOTRANSFERASE 32 U/L (21-72); ALBUMIN 4.2 g/dL (3.5-5.0); ALKALINE PHOSPHATASE 68 U/L (38-126); ANION GAP 15 (5-19); ASPARTATE AMINO TRANSFERASE 72 U/L (17-59); BILIRUBIN,DIRECT 0.2 mg/dL (0.0-0.4); BILIRUBIN,TOTAL 0.4 mg/dL (0.2-1.3); BLOOD UREA NITROGEN 5 mg/dL (7-20); CALCIUM 8.6 mg/dL (8.4-10.2); CARBON DIOXIDE 26 mmol/L (22-30); CHLORIDE 91 mmol/L (98-107); GLUCOSE 87 mg/dL (75-110); POTASSIUM 4.1 mmol/L (3.6-5.0); SODIUM 132.2 mmol/L (137-145)
--- NOTE | 2018-08-03 22:04 | RADIOLOGY REPORT (SQ) ---
EXAM DESCRIPTION: XR CHEST 1 VIEW COMPLETED DATE/TME: 08/03/2018 21:16 CLINICAL HISTORY: 62 years, Male, SOB COMPARISON: 08/02/2018 chest x-ray NUMBER OF VIEWS: 1 TECHNIQUE: Frontal view the chest LIMITATIONS: None. FINDINGS: Heart size is normal. Osteopenia. COPD. Multiple old left rib fractures. No pneumothorax. Lungs are clear IMPRESSION: COPD. Lungs are clear 2010 [employer]- All Rights Reserved
[2018-08-03 23:01] VITALS: BP 138/78
--- NOTE | 2018-08-04 00:40 | EKG REPORT ---
SEVERITY:- NORMAL ECG - SINUS RHYTHM NON PROG R WAVE V1-V3 : Confirmed by: Renee Gill 04-Aug-2018 00:40:11
== END 2018-08-03 23:01 | disposition home or self-care (01) ==
LOC: ER 21:10
DX: J44.0 Chronic obstructive pulmonary disease with (acute) lower respiratory infection (principal); J18.1 Lobar pneumonia, unspecified organism; J44.1 Chronic obstructive pulmonary disease with (acute) exacerbation; F10.20 Alcohol dependence, uncomplicated; I10 Essential (primary) hypertension; R05 Cough; R53.1 Weakness; R06.02 Shortness of breath; F17.200 Nicotine dependence, unspecified, uncomplicated; I25.10 Atherosclerotic heart disease of native coronary artery without angina pectoris; Z95.5 Presence of coronary angioplasty implant and graft
CPT/HCPCS: 93005; 94640; 99285; 36415; 85025; 80053; 84484; 71045; 93010; A9270 ×4; J7512; J7620

== ENCOUNTER 2018-08-25 05:54 | Emergency (ER) | payer MEDICARE, MEDICAID ==
[2018-08-25 06:15] VITALS: BP 159/86
--- NOTE | 2018-08-25 06:25 | ER Document Report ---
ED General - General Chief Complaint: Breathing Difficulty Stated Complaint: TROUBLE BREATHING Time Seen by Provider: 08/25/18 05:56 TRAVEL OUTSIDE OF THE [place] IN LAST 30 DAYS: No - HPI Patient complains to provider of: Short of breath Onset: Other - 62-year-old man that presents for evaluation of shortness of breath. Always evaluating another patient this patient had presented the emergency department, upon arrival he noted that he no longer wanted to be here , said that he was going to walk out. I medially evaluated the patient, he said that he is leaving. He has no desire to be here. He is able to speak in nearly full sentences at this time and ambulate without assistance. His pulse oximetry had been 100%. At this time he declines further evaluation and says that he is leaving. 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 Takes ASA now, used to be on hypertensive medications, Hx Hypercholesterolemia, Hx Hypertension Pulmonary Medical History: Reports: Hx Asthma, Hx COPD, Hx Pneumonia Denies: Hx Bronchitis Neurological Medical History: Denies: Hx Cerebrovascular Accident, Hx Seizures Renal/ Medical History: Denies: Hx Peritoneal Dialysis Musculoskeletal Medical History: Reports Hx Arthritis - chronic spine disorder, Reports Hx Musculoskeletal Deformity, Reports Hx Musculoskeletal Trauma Psychiatric Medical History: Reports: Hx Borderline Personality Disorder, Hx Depression Traumatic Medical History: Reports: Hx Fractures - Left rib fractures with pneumothorax requiring chest tube on 05/23/2016 Past Surgical History: Reports: Hx Cardiac Catheterization - Immunizations Immunizations up to date: Yes Hx Diphtheria, Pertussis, Tetanus Vaccination: Yes Hx Pneumococcal Vaccination: 02/22/13 Physical Exam - Vital signs Vitals: Temp Pulse Resp BP Pulse Ox 97.5 F 85 22 H 159/86 H 100 08/25/18 06:14 08/25/18 06:14 08/25/18 06:14 08/25/18 06:14 08/25/18 06:14 Course - Re-evaluation Re-evalutation: 08/25/18 06:46 60-year-old man presenting for shortness of breath he states that he is leaving. On exam he is ambulatory without assistance, able speak in full sentences. He also acknowledges that he may leave here and . I did tell him that I am concerned that he may stop breathing upon leaving the hospital. He declined any further evaluation at this time subsequently signed out AMA. - Vital Signs Vital signs: Temp Pulse Resp BP Pulse Ox 97.5 F 85 22 H 159/86 H 100 08/25/18 06:14 08/25/18 06:14 08/25/18 06:14 08/25/18 06:14 08/25/18 06:14 Discharge - Discharge Clinical Impression: Shortness of breath Condition: Stable Disposition: AGAINST MEDICAL ADVICE Referrals: LESLY BRYAN MD [ACTIVE STAFF] - Follow up as needed
== END 2018-08-25 06:13 | disposition left against medical advice (07) ==
LOC: ER 05:54
DX: R06.02 Shortness of breath (principal); R06.00 Dyspnea, unspecified; F17.200 Nicotine dependence, unspecified, uncomplicated; I25.10 Atherosclerotic heart disease of native coronary artery without angina pectoris; E78.00 Pure hypercholesterolemia, unspecified; J44.9 Chronic obstructive pulmonary disease, unspecified; I25.2 Old myocardial infarction
CPT/HCPCS: 99284

== ENCOUNTER 2018-08-27 08:35 | Emergency (ER) | payer MEDICARE, OTHER ==
[2018-08-27 08:47] VITALS: BP 166/128
[2018-08-27 09:29] LABS: APPEARANCE,URINE CLEAR; BILIRUBIN,URINE NEGATIVE (NEGATIVE); COLOR,URINE STRAW; GLUCOSE, URINE NEGATIVE (NEGATIVE); KETONES,URINE NEGATIVE (NEGATIVE); LEUKOCYTE ESTERASE,URINE NEGATIVE (NEGATIVE); NITRITE,URINE NEGATIVE (NEGATIVE); PROTEIN,URINE NEGATIVE (NEGATIVE); URINE SPECIFIC GRAVITY 1.005; UROBILINOGEN,URINE NEGATIVE mg/dL (<2.0)
== END 2018-08-27 09:23 | disposition left against medical advice (07) ==
LOC: ER 08:35
DX: Z53.21 Procedure and treatment not carried out due to patient leaving prior to being seen by health care provider (principal); R10.9 Unspecified abdominal pain
CPT/HCPCS: 81001

== ENCOUNTER 2018-08-28 03:20 | Emergency (ER) | payer MEDICARE, MEDICAID ==
--- NOTE | 2018-08-28 04:08 | ER Document Report ---
ED Respiratory Problem - General Chief Complaint: Shortness Of Breath Stated Complaint: SHORTNESS OF BREATH Time Seen by Provider: 08/28/18 03:57 Notes: Patient is a 62-year-old male with a history of tobacco abuse, COPD, alcoholism , CAD, hypertension comes emergency department for chief complaint of difficulty breathing for the past 2 days. He states he recently got over pneumonia, completed a doxycycline course. He continues to smoke, he is not on oxygen at home. He states he has had some yellowish greenish sputum production. Subjective fevers intermittently. Denies vomiting, chest pain, abdominal pain. TRAVEL OUTSIDE OF THE [place] 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 Takes ASA now, used to be on hypertensive medications, Hx Hypercholesterolemia, Hx Hypertension Pulmonary Medical History: Reports: Hx Asthma, Hx COPD, Hx Pneumonia Denies: Hx Bronchitis Neurological Medical History: Denies: Hx Cerebrovascular Accident, Hx Seizures Renal/ Medical History: Denies: Hx Peritoneal Dialysis Musculoskeletal Medical History: Reports Hx Arthritis - chronic spine disorder, Reports Hx Musculoskeletal Deformity, Reports Hx Musculoskeletal Trauma Psychiatric Medical History: Reports: Hx Borderline Personality Disorder, Hx Depression Traumatic Medical History: Reports: Hx Fractures - Left rib fractures with pneumothorax requiring chest tube on 05/23/2016 Past Surgical History: Reports: Hx Cardiac Catheterization - Immunizations Immunizations up to date: Yes Hx Diphtheria, Pertussis, Tetanus Vaccination: Yes Hx Pneumococcal Vaccination: 02/22/13 Review of Systems - Review of Systems Constitutional: See HPI EENT: No symptoms reported Cardiovascular: See HPI Respiratory: See HPI Gastrointestinal: No symptoms reported Genitourinary: No symptoms reported Male Genitourinary: No symptoms reported Musculoskeletal: No symptoms reported Skin: No symptoms reported Hematologic/Lymphatic: No symptoms reported Neurological/Psychological: No symptoms reported Physical Exam - Vital signs Vitals: Pulse Ox 98 08/28/18 03:25 - Notes Notes: GENERAL: Sleeping and easily aroused. No acute distress. HEAD: Normocephalic, atraumatic. EYES: Pupils equal, round, and reactive to light. Extraocular movements intact. ENT: Oral mucosa moist, tongue midline. Oropharynx unremarkable. Airway patent. Nares patent, no nasal septal hematoma, TM's intact. NECK: Full range of motion. Supple. Trachea midline. LUNGS: Decreased breath sounds bilaterally. Still clear to auscultation bilaterally, no wheezes, rales, or rhonchi. No respiratory distress. HEART: Regular rate and rhythm. No murmur ABDOMEN: Soft, non-tender. Non-distended. Bowel sounds present in all 4 quadrants. GENITOURINARY: Deferred EXTREMITIES: Moves all 4 extremities spontaneously. No edema, normal radial and dorsalis pedis pulses bilaterally. No cyanosis. BACK: no cervical, thoracic, lumbar midline tenderness. No saddle anesthesia, normal distal neurovascular exam. NEUROLOGICAL: Alert and oriented x3. Normal speech. [cranial nerves II through XII grossly intact]. PSYCH: Normal affect, normal mood. SKIN: Warm, dry, normal turgor. No rashes or lesions noted. Course - Re-evaluation Re-evalutation: Patient is well-known to me in this emergency department. On my initial evaluation patient is complaining of rest mature symptoms but he was sleeping when I initially evaluated him, he was easily aroused, he is actually breathing quite well with clear lungs, no hypoxia compared to prior at his baseline, no tachycardia, no fever. Chest x-ray is unremarkable. CBC did not result properly, chemistry is unremarkable, troponin is not elevated, EKG sinus rhythm with no EKG changes compared to prior, no T wave inversions or ST segment changes in consecutive leads. I reevaluated the patient, he is still very well-appearing, he states he feels fine and he wants to leave. Discussed workup, discussed follow-up, discussed return precautions with patient. Patient states understanding and agreement. Patient hung out at the nursing station after discharge talking to the staff with no signs of distress. Stable at time of discharge. - Vital Signs Vital signs: Temp Pulse Resp BP Pulse Ox 98.6 F 17 137/88 H 94 08/28/18 05:01 08/28/18 05:01 08/28/18 05:01 08/28/18 05:01 - Laboratory Result Diagrams: 08/28/18 03:30 08/28/18 03:30 Discharge - Discharge Clinical Impression: Shortness of breath, Productive cough Condition: Stable Disposition: HOME, SELF-CARE Additional Instructions: Chest x-ray, EKG, and evaluation with no new or concerning abnormalities at this time. Follow-up with primary care, continue current home medications. Return to the emergency department for any concerning symptoms including fever, chest pain, difficulty breathing, or any other concerning or worsening symptoms. Forms: Smoking Cessation Education
[2018-08-28 04:36] LABS: ANION GAP 14 (5-19); BLOOD UREA NITROGEN 7 mg/dL (7-20); CARBON DIOXIDE 28 mmol/L (22-30); CHLORIDE 99 mmol/L (98-107); GLUCOSE 92 mg/dL (75-110); POTASSIUM 4.2 mmol/L (3.6-5.0); SODIUM 140.9 mmol/L (137-145)
--- NOTE | 2018-08-28 04:36 | RADIOLOGY REPORT (SQ) ---
EXAM DESCRIPTION: XR CHEST 1 VIEW COMPLETED DATE/TME: 08/28/2018 04:06 CLINICAL HISTORY: 62 years, Male, shortness of breath COMPARISON: 08/03/2018 chest x-ray NUMBER OF VIEWS: 1 TECHNIQUE: AP portable chest LIMITATIONS: None. FINDINGS: Heart size is normal. Osteopenia. COPD. Old bilateral rib fractures. No pneumothorax. Lungs are clear IMPRESSION: COPD. No acute cardiopulmonary process copyright 2010 [employer]- All Rights Reserved
[2018-08-28 05:17] VITALS: BP 137/88
--- NOTE | 2018-08-28 21:26 | EKG REPORT ---
SEVERITY:- NORMAL ECG - SINUS RHYTHM : Confirmed by: Sruthi Rivas MD 28-Aug-2018 21:25:36
== END 2018-08-28 05:38 | disposition home or self-care (01) ==
LOC: ER 03:20
DX: J44.9 Chronic obstructive pulmonary disease, unspecified (principal); R06.02 Shortness of breath; R05 Cough; I25.10 Atherosclerotic heart disease of native coronary artery without angina pectoris; I10 Essential (primary) hypertension; F17.200 Nicotine dependence, unspecified, uncomplicated; Z87.01 Personal history of pneumonia (recurrent); Z95.5 Presence of coronary angioplasty implant and graft
CPT/HCPCS: 36415; 71045; 80048; 84484; 93005; 93010; 99285

== ENCOUNTER 2018-08-31 06:31 | Emergency (ER) | payer MEDICARE, MEDICAID ==
[2018-08-31] MEDS ORDERED: ASPIRIN 81 MG TABLET, CHEWABLE PO ONE (06:37)
[2018-08-31] MEDS ORDERED: HYDROXYZINE PAMOATE 25 MG CAPSULE PO ONE (06:54)
[2018-08-31] MEDS ORDERED: IPRATROPIUM/ALBUTEROL 0.5-2.5 MG/3 ML AMPUL NEB ONE (06:54)
[2018-08-31] MEDS ORDERED: ALBUTEROL SULFATE 0.083% NEB 2.5 MG/3 ML AMPUL NEB ONE (06:54)
[2018-08-31] MEDS ORDERED: METHYLPREDNISOLONE INJ 125 MG/2 ML SDV IV ONE (06:54)
[2018-08-31] MEDS ORDERED: IBUPROFEN 600 MG TABLET PO ONE (07:00)
--- NOTE | 2018-08-31 07:00 | ER Document Report ---
ED General - General Chief Complaint: Chest Pain Stated Complaint: CHEST PAIN Time Seen by Provider: 08/31/18 06:45 TRAVEL OUTSIDE OF THE [place] IN LAST 30 DAYS: No - HPI Notes: Patient is a 62-year-old male that presents to the emergency department for chief complaint of shortness of breath and chest pain. Patient reports feeling short of breath for the last few weeks. He is a daily tobacco user and is continuing to smoke. He states his shortness of breath is worse with ambulation. He reports a dry cough with no icreased sputum. Denies fevers and chills. He does not wear oxygen at home. Patient also complaining of chest pain. He describes it as a substernal heaviness that has been constant since last night. The pain is nonradiating. He denies any aggravating or relieving factors. He did not take any medication at home. He denies any change in his symptoms since receiving 1 sublingual nitro and 325 mg aspirin by EMS. Patient states his last drink of alcohol was late last night. Past Medical History: Alcoholism, COPD Past Surgical History: Reviewed in chart Social History: Daily tobacco. Daily alcohol. Denies drug use Family History: Reviewed and noncontributory for presenting illness Allergies: Reviewed, see documented allergy list. REVIEW OF SYSTEMS: CONSTITUTIONAL : No fever No chills No diaphoresis No recent illness EENT: No vision changes No congestion No sore throat CARDIOVASCULAR: chest pain No palpitations RESPIRATORY: shortness of breath cough No difficulty breathing GASTROINTESTINAL: No abdominal pain No nausea No vomiting No diarrhea GENITOURINARY: No dysuria No hematuria No difficulty urinating MUSCULOSKELETAL: No back pain No leg pain No arm pain SKIN: No rashes No lesions LYMPHATIC: No swollen, enlarged glands. NEUROLOGICAL: No lightheadedness No headache No weakness No paresthesias PSYCHIATRIC: No anxiety No depression PHYSICAL EXAMINATION: Vital signs reviewed, nursing noted reviewed. GENERAL: Well-appearing, well-nourished and in no acute distress. HEAD: Atraumatic, normocephalic. EYES: Eyes appear normal, extraocular movements intact, sclera anicteric, conjunctiva are normal. ENT: nares patent, oropharynx clear without exudates. Moist mucous membranes. NECK: Normal range of motion, supple without lymphadenopathy LUNGS: Diminished bilaterally. No tachypnea or accessory muscle use. No respiratory distress. HEART: Regular rate and rhythm without murmurs ABDOMEN: Soft, nontender, normoactive bowel sounds. No rebound, guarding, or rigidity. No masses appreciated. EXTREMITIES: Nontender, good range of motion, no pitting or edema. NEUROLOGICAL: No focal neurological deficits. Moves all extremities spontaneously Motor and sensory grossly intact on exam. 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 Takes ASA now, used to be on hypertensive medications, Hx Hypercholesterolemia, Hx Hypertension Pulmonary Medical History: Reports: Hx Asthma, Hx COPD, Hx Pneumonia Denies: Hx Bronchitis Neurological Medical History: Denies: Hx Cerebrovascular Accident, Hx Seizures Renal/ Medical History: Denies: Hx Peritoneal Dialysis Musculoskeletal Medical History: Reports Hx Arthritis - chronic spine disorder, Reports Hx Musculoskeletal Deformity, Reports Hx Musculoskeletal Trauma Psychiatric Medical History: Reports: Hx Borderline Personality Disorder, Hx Depression Traumatic Medical History: Reports: Hx Fractures - Left rib fractures with pneumothorax requiring chest tube on 05/23/2016 Past Surgical History: Reports: Hx Cardiac Catheterization - Immunizations Immunizations up to date: Yes Hx Diphtheria, Pertussis, Tetanus Vaccination: Yes Hx Pneumococcal Vaccination: 02/22/13 Physical Exam - Vital signs Vitals: Pulse Ox 96 08/31/18 06:34 Course - Re-evaluation Re-evalutation: 08/31/18 06:57 Vitals reviewed. Nursing notes reviewed. Patient's EKG shows no ischemic changes or change from prior study 3 days ago. He received aspirin prior to arrival by EMS. Patient is complaining of feeling anxious and appears tremulous. He was given Vistaril for his request of "something for my nerves". He is not tachycardic and his last alcoholic beverage was late last night, I do not clinically suspect acute alcohol withdrawal. Patient was given albuterol , DuoNeb and Solu-Medrol for shortness of breath. 08/31/18 08:19 Patient reevaluated. He has become verbally combative with staff and myself. He states "I am fine". He is requesting to leave the emergency room. I did explain to him that he has been complaining of chest pain and I do not have any of his blood work resulted currently. Patient has capacity to understand his medical care currently. He is able to speak in full sentences and ambulate without difficulty. He does not clinically appear intoxicated. He like to leave the hospital AGAINST MEDICAL ADVICE. He understands the risks of leaving AGAINST MEDICAL ADVICE After performing a Medical Screening Examination, I spoke with the patient at length in regards to leaving the hospital against medical advice. I do not believe the patient should leave but the patient is alert oriented x4, understands the risks and benefits of staying and leaving including disability and . Pt understands that he can return at any time for further care and is more than welcome to do so. Pt verbalizes this understanding and has capacity to make medical decisions. - Vital Signs Vital signs: Temp Pulse Resp BP Pulse Ox 98 F 25 H 120/83 95 08/31/18 06:37 08/31/18 07:01 08/31/18 07:01 08/31/18 07:01 - Laboratory Result Diagrams: 08/31/18 07:49 08/31/18 07:49 - Diagnostic Test Radiology reviewed: Image reviewed, Reports reviewed - EKG Interpretation by Me Additional EKG results interpreted by me: 08/31/18 06:58 Interpreted by myself [id number]: Normal sinus rhythm, rate 82, normal axis, no ectopy, no ST elevation, no change from 08/28/18 Discharge - Discharge Clinical Impression: COPD exacerbation Chest pain Qualifiers: Chest pain type: unspecified Qualified Code(s): R07.9 - Chest pain, unspecified Condition: Stable Instructions: Chronic Alcoholism ([facility]), Chronic Obstructive Lung Disease ([facility]) Additional Instructions: By leaving the hospital AGAINST MEDICAL ADVICE you are risking loss of life, limb or permanent disability. You may be having a heart attack and without further workup the cause of your chest pain is unknown. Please return for reevaluation at any point if you require further care. Forms: Smoking Cessation Education Referrals: [facility] [Provider Group] - Follow up as needed
--- NOTE | 2018-08-31 07:13 | RADIOLOGY REPORT (SQ) ---
EXAM DESCRIPTION: XR CHEST 1 VIEW COMPLETED DATE/TME: 08/31/2018 06:37 CLINICAL HISTORY: cp COMPARISON: 08/28/2018 FINDINGS: Single frontal view of the chest. Tortuosity of the thoracic aorta. Heart is not enlarged. Low lung volumes. No consolidation, pneumothorax, or pleural effusion. Remote bilateral rib fractures again identified. Upper abdominal soft tissues are unremarkable. IMPRESSION: 1. No acute pulmonary process. Stable appearance of the chest.
[2018-08-31 07:27] LABS: URINE AMPHETAMINES SCREEN NEGATIVE; URINE BARBITURATES SCREEN NEGATIVE; URINE BENZODIAZEPINES SCREEN NEGATIVE; URINE COCAINE SCREEN NEGATIVE; URINE MARIJUANA (THC) SCREEN NEGATIVE; URINE METHADONE SCREEN NEGATIVE; URINE PHENCYCLIDINE SCREEN NEGATIVE
[2018-08-31 08:15] LABS: ABSOLUTE BASOPHILS # (AUTO) 0.1 10^3/uL (0.0-0.2); ABSOLUTE LYMPHOCYTES (AUTO) 1.7 10^3/uL (0.5-4.7); ABSOLUTE NEUT (AUTO) 3.5 10^3/uL (1.7-8.2); BASOPHILS % (AUTO) 0.8 % (0-2); EOSINOPHILS % (AUTO) 0.6 % (0-6); HEMATOCRIT 40.4 % (37.9-51.0); HEMOGLOBIN 13.9 g/dL (13.5-17.0); LYMPHOCYTES % (AUTO) 27.4 % (13-45); MEAN CORPUSCULAR HEMOGLOBIN 31.2 pg (27.0-33.4); MEAN CORPUSCULAR HGB CONC 34.4 g/dL (32.0-36.0); MEAN CORPUSCULAR VOLUME 91 fl (80-97); MONOCYTES % (AUTO) 15.8 % (3-13); PLATELET COUNT 128 10^3/uL (150-450); RED BLOOD COUNT 4.46 10^6/uL (4.35-5.55); RED CELL DISTRIBUTION WIDTH 16.4 % (11.5-14.0); SEGMENTED NEUTROPHILS % (AUTO) 55.4 % (42-78); TOTAL CELLS COUNTED % (AUTO) 100 %; WHITE BLOOD COUNT 6.4 10^3/uL (4.0-10.5)
[2018-08-31 08:24] VITALS: BP 154/76
--- NOTE | 2018-09-01 00:47 | EKG REPORT ---
SEVERITY:- NORMAL ECG - SINUS RHYTHM : Confirmed by: Sruthi Riavs MD 01-Sep-2018 00:47:24
== END 2018-08-31 08:27 | disposition left against medical advice (07) ==
LOC: ER 06:31
DX: J44.1 Chronic obstructive pulmonary disease with (acute) exacerbation (principal); R06.02 Shortness of breath; R07.2 Precordial pain; F10.20 Alcohol dependence, uncomplicated; I25.10 Atherosclerotic heart disease of native coronary artery without angina pectoris; I25.2 Old myocardial infarction; I10 Essential (primary) hypertension; Z87.01 Personal history of pneumonia (recurrent)
CPT/HCPCS: 93005; 94640 ×2; 99285; 96374; 36415; 85025; 80307; 71045; 93010; A9270 ×4; J2930; J7620

== ENCOUNTER 2018-09-15 01:10 | Emergency (ER) | payer MEDICARE, MEDICAID ==
--- NOTE | 2018-09-15 01:18 | ER Document Report ---
ED General - General Stated Complaint: RESPIRATORY DISTRESS Time Seen by Provider: 09/15/18 01:14 Notes: Patient is a 62-year-old male very well-known to me due to frequent visits to the emergency department and almost always leaving AGAINST MEDICAL ADVICE prior to allowing treatment completion, has a known history of COPD, alcohol abuse, tobacco abuse, presents today by EMS complaining of shortness of breath and epigastric abdominal pain. Patient is a difficult historian, states that the shortness of breath has been ongoing for several days and that the epigastric abdominal pain has been intermittent for at least the past 1 month. Epigastric abdominal pain is described as a moderate, aching, intermittent pain. Does continue to smoke and states that this does worsen his symptoms. Nothing has been tried at home to improve his symptoms. He does not have a general physician with whom he follows. Denies any chest pain. No nausea or vomiting. TRAVEL OUTSIDE OF THE [place] 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 Takes ASA now, used to be on hypertensive medications, Hx Hypercholesterolemia, Hx Hypertension Pulmonary Medical History: Reports: Hx Asthma, Hx COPD, Hx Pneumonia Denies: Hx Bronchitis Neurological Medical History: Denies: Hx Cerebrovascular Accident, Hx Seizures Renal/ Medical History: Denies: Hx Peritoneal Dialysis Musculoskeletal Medical History: Reports Hx Arthritis - chronic spine disorder, Reports Hx Musculoskeletal Deformity, Reports Hx Musculoskeletal Trauma Psychiatric Medical History: Reports: Hx Borderline Personality Disorder, Hx Depression Traumatic Medical History: Reports: Hx Fractures - Left rib fractures with pneumothorax requiring chest tube on 05/23/2016 Past Surgical History: Reports: Hx Cardiac Catheterization - Immunizations Immunizations up to date: Yes Hx Diphtheria, Pertussis, Tetanus Vaccination: Yes Hx Pneumococcal Vaccination: 02/22/13 Review of Systems - Review of Systems Notes: Constitutional: Negative for fever. HENT: Negative for sore throat. Eyes: Negative for visual changes. Cardiovascular: Negative for chest pain. Respiratory: Positive for shortness of breath. Gastrointestinal: Positive for epigastric abdominal pain Genitourinary: Negative for dysuria. Musculoskeletal: Negative for back pain. Skin: Negative for rash. Neurological: Negative for headaches, weakness or numbness. 10 point ROS negative except as marked above and in HPI. Physical Exam - Vital signs Vitals: Pulse Ox 97 09/15/18 01:17 Interpretation: Normal Notes: PHYSICAL EXAMINATION: GENERAL: Appears much older than stated age HEAD: Atraumatic, normocephalic. EYES: Pupils equal round and reactive to light, extraocular movements intact, sclera anicteric, conjunctiva are normal. ENT: nares patent, oropharynx clear without exudates. Moist mucous membranes. NECK: Normal range of motion, supple without lymphadenopathy LUNGS: Breath sounds clear to auscultation bilaterally and equal. No wheezes rales or rhonchi. HEART: Regular rate and rhythm without murmurs ABDOMEN: Soft, focal epigastric abdominal tenderness to palpation but no other a reas of localized tenderness, normoactive bowel sounds. No guarding, no rebound. No masses appreciated. EXTREMITIES: Normal range of motion, no pitting or edema. No cyanosis. NEUROLOGICAL: No focal neurological deficits. Moves all extremities spontaneously and on command. PSYCH: Anxious, mildly agitated SKIN: Warm, Dry, normal turgor, no rashes or lesions noted. Course - Re-evaluation Re-evalutation: 09/15/18 01:17 Patient presents complaining of shortness of breath, continues to smoke, has received multiple treatments in route and is no longer wheezing. Patient is also complaining of 3 weeks to 1 month of upper abdominal pain. Abdominal exam is notable for focal tenderness to the epigastrium but no other localized areas of tenderness, rebound or guarding. Suspect possible alcohol pancreatitis versus alcoholic gastritis as patient does continue to drink heavily. Very low clinical suspicion for acute biliary pathology, no lower abdominal tenderness to suggest an acute appendicitis, and no generalized tenderness, rebound or rigidity to suggest bowel perforation or high-grade obstruction. Will proceed with chest x-ray, labs including lipase, provide symptomatic care and reassess the patient. 09/15/18 01:52 I was just notified by nursing staff that the patient eloped. I did not have an opportunity to discuss with the patient prior to him leaving as I was in another patient's room. Patient has a long-standing history of leaving the department AGAINST MEDICAL ADVICE and/or eloping without notifying staff. - Vital Signs Vital signs: Temp Pulse Resp BP Pulse Ox 98.6 F 26 H 160/94 H 95 09/15/18 01:18 09/15/18 01:18 09/15/18 01:18 09/15/18 01:18 - Laboratory Result Diagrams: 09/15/18 01:28 09/15/18 01:28 Laboratory results interpreted by me: 09/15/18 09/15/18 01:28 01:28 RDW 16.5 H Monocytes % 14.6 H Sodium 132.5 L Chloride 94 L BUN 5 L AST 213 H ALT 133 H - Diagnostic Test Radiology reviewed: Image reviewed, Reports reviewed Radiology results interpreted by me: 09/15/18 02:09 Chest x-ray: No acute infiltrate Discharge - Discharge Clinical Impression: Left against medical advice, Shortness of breath, Epigastric abdominal pain Disposition: AGAINST MEDICAL ADVICE
[2018-09-15 01:28] VITALS: BP 160/94
[2018-09-15 01:41] LABS: ABSOLUTE BASOPHILS # (AUTO) 0.1 10^3/uL (0.0-0.2); ABSOLUTE EOSINOPHILS # (AUTO) 0.1 10^3/uL (0.0-0.6); ABSOLUTE LYMPHOCYTES (AUTO) 1.8 10^3/uL (0.5-4.7); ABSOLUTE MONOCYTES (AUTO) 0.7 10^3/uL (0.1-1.4); ABSOLUTE NEUT (AUTO) 1.9 10^3/uL (1.7-8.2); EOSINOPHILS % (AUTO) 1.4 % (0-6); HEMATOCRIT 39.5 % (37.9-51.0); HEMOGLOBIN 13.5 g/dL (13.5-17.0); LYMPHOCYTES % (AUTO) 39.8 % (13-45); MEAN CORPUSCULAR HEMOGLOBIN 30.5 pg (27.0-33.4); MEAN CORPUSCULAR HGB CONC 34.3 g/dL (32.0-36.0); MEAN CORPUSCULAR VOLUME 89 fl (80-97); MONOCYTES % (AUTO) 14.6 % (3-13); PLATELET COUNT 182 10^3/uL (150-450); RED BLOOD COUNT 4.44 10^6/uL (4.35-5.55); RED CELL DISTRIBUTION WIDTH 16.5 % (11.5-14.0); SEGMENTED NEUTROPHILS % (AUTO) 42.2 % (42-78); TOTAL CELLS COUNTED % (AUTO) 100 %; WHITE BLOOD COUNT 4.5 10^3/uL (4.0-10.5)
--- NOTE | 2018-09-15 01:45 | RADIOLOGY REPORT (SQ) ---
EXAM DESCRIPTION: XR CHEST 1 VIEW COMPLETED DATE/TME: 09/15/2018 01:15 CLINICAL HISTORY: 62 years, Male, sob COMPARISON: 08/31/2018 chest NUMBER OF VIEWS: 1 TECHNIQUE: Portable chest LIMITATIONS: None. FINDINGS: Heart size is normal. Osteopenia. Old left rib fractures. COPD. No pneumothorax. Lungs are clear IMPRESSION: COPD. No acute cardiopulmonary process copyright 2010 [employer]- All Rights Reserved
[2018-09-15 01:49] LABS: ALANINE AMINOTRANSFERASE 133 U/L (21-72); ALBUMIN 3.9 g/dL (3.5-5.0); ALKALINE PHOSPHATASE 99 U/L (38-126); ANION GAP 10 (5-19); ASPARTATE AMINO TRANSFERASE 213 U/L (17-59); BILIRUBIN,DIRECT 0.2 mg/dL (0.0-0.4); BILIRUBIN,TOTAL 0.4 mg/dL (0.2-1.3); BLOOD UREA NITROGEN 5 mg/dL (7-20); CALCIUM 8.7 mg/dL (8.4-10.2); CARBON DIOXIDE 29 mmol/L (22-30); CHLORIDE 94 mmol/L (98-107); GLUCOSE 87 mg/dL (75-110); LIPASE 78.8 U/L (23-300); SODIUM 132.5 mmol/L (137-145); TOTAL PROTEIN 6.6 g/dL (6.3-8.2)
== END 2018-09-15 01:54 | disposition left against medical advice (07) ==
LOC: ER 01:10
DX: J44.9 Chronic obstructive pulmonary disease, unspecified (principal); R06.02 Shortness of breath; R10.13 Epigastric pain; F17.200 Nicotine dependence, unspecified, uncomplicated; I25.10 Atherosclerotic heart disease of native coronary artery without angina pectoris; I10 Essential (primary) hypertension; I25.2 Old myocardial infarction; Z95.5 Presence of coronary angioplasty implant and graft; Z53.20 Procedure and treatment not carried out because of patient's decision for unspecified reasons
CPT/HCPCS: 36415; 71045; 80053; 83690; 84484; 85025; 99285

== ENCOUNTER 2018-09-15 03:03 | Emergency (ER) | payer MEDICARE, MEDICAID ==
--- NOTE | 2018-09-15 03:22 | ER Document Report ---
ED General - General Mode of Arrival: Ambulatory Information source: Patient TRAVEL OUTSIDE OF THE [place] IN LAST 30 DAYS: No - General Chief Complaint: Breathing Difficulty Stated Complaint: SHORTNESS OF BREATH Time Seen by Provider: 09/15/18 03:14 Notes: Patient is a 62-year-old male who frequents this emergency department with COPD and a history of alcohol abuse and tobacco abuse presents emergency department complaining of difficulty breathing. Patient presented to the emergency department earlier today complaining of similar symptoms but left AGAINST MEDICAL ADVICE. Patient states since he left the emergency department his breathing has worsened. Patient also complains of abdominal pain and general weakness and also asks for something for his nerves. (OLIVER PURCELL) This 62-year-old COPD, alcoholic patient who frequently comes to the emergency room, was seen here arriving by EMS at 10 this morning, he was seen in a workup was started and he left AMA at 50. During his stay he did have a chest x-ray which was read as COPD without cardiopulmonary process, he did have lab work that was remarkable only for his elevated LFTs and a troponin of 0.042 The patient states that he has not been drinking alcohol this evening, however he does have an alcohol odor on his breath. 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 Takes ASA now, used to be on hypertensive medications, Hx Hypercholesterolemia, Hx Hypertension Pulmonary Medical History: Reports: Hx Asthma, Hx COPD, Hx Pneumonia Musculoskeletal Medical History: Reports Hx Arthritis - chronic spine disorder, Reports Hx Musculoskeletal Deformity, Reports Hx Musculoskeletal Trauma Psychiatric Medical History: Reports: Hx Borderline Personality Disorder, Hx Depression Traumatic Medical History: Reports: Hx Fractures - Left rib fractures with pneumothorax requiring chest tube on 05/23/2016 Past Surgical History: Reports: Hx Cardiac Catheterization - Immunizations Immunizations up to date: Yes Hx Diphtheria, Pertussis, Tetanus Vaccination: Yes Hx Pneumococcal Vaccination: 02/22/13 Review of Systems - Review of Systems Constitutional: See HPI, Weakness EENT: No symptoms reported Cardiovascular: No symptoms reported Respiratory: See HPI Gastrointestinal: See HPI, Abdominal pain Genitourinary: No symptoms reported Male Genitourinary: No symptoms reported Musculoskeletal: No symptoms reported Skin: No symptoms reported Hematologic/Lymphatic: No symptoms reported Neurological/Psychological: No symptoms reported -: Yes All other systems reviewed and negative Physical Exam - Vital signs Vitals: Temp Pulse Resp BP Pulse Ox 97.7 F 101 H 24 H 158/86 H 93 09/15/18 03:06 09/15/18 03:06 09/15/18 03:06 09/15/18 03:06 09/15/18 03:06 - Notes Notes: GENERAL: Alert, anxious. No acute distress. HEAD: Normocephalic, atraumatic. EYES: Pupils equal, round, and reactive to light. Extraocular movements intact. ENT: Oral mucosa moist, tongue midline. NECK: Full range of motion. Supple. Trachea midline. LUNGS:Wheezes and rhonchi. Actively hyperventilating. No respiratory distress. HEART: Regular rate and rhythm. No murmurs, gallops, or rubs. ABDOMEN: Soft, epigastric tenderness to palpation. Non-distended. Bowel sounds present in all 4 quadrants. EXTREMITIES: Moves all 4 extremities spontaneously. NEUROLOGICAL: Alert and oriented x3. Normal speech. PSYCH: Anxious. SKIN: Warm, dry, normal turgor. No rashes or lesions noted. (OLIVER PURCELL) Course - Re-evaluation Re-evalutation: 09/15/18 04:28 Epigastrium is less tender. The patient is not seem to be quite as anxious. He is in no respiratory distress. Wheezes are improved. He will be discharged with a prescription for an albuterol inhaler. He was counseled at length about his alcohol and tobacco abuse and how all of his health problems will continue to deteriorate over time if he does not choose to change. He is encouraged to follow-up with [facility] and seek assistance for his tobacco and alcohol problems. (JACOBY BLAKE) - Vital Signs Vital signs: Temp Pulse Resp BP Pulse Ox 97.7 F 101 H 24 H 158/86 H 93 09/15/18 03:06 09/15/18 03:06 09/15/18 03:06 09/15/18 03:06 09/15/18 03:06 - Laboratory Laboratory results interpreted by me: 09/15/18 09/15/18 03:40 03:40 Creatine Kinase 242 H CK-MB (CK-2) 5.98 H Discharge - Discharge Clinical Impression: Chronic alcohol abuse, Anxiety, Epigastric abdominal pain COPD (chronic obstructive pulmonary disease) Qualifiers: COPD type: unspecified COPD Qualified Code(s): J44.9 - Chronic obstructive pulmonary disease, unspecified Condition: Stable Disposition: HOME, SELF-CARE Additional Instructions: Chronic Obstructive Lung Disease You have chronic obstructive lung disease (COPD). The symptoms come from emphysema (damage to small airways, with trapping of air in large sacks in the lung) and chronic bronchitis (repeated infection and damage to larger airways). The cause is almost always cigarette smoking, although dust exposure, asthma, and infections contribute. You should avoid fumes, dust, and smoke (especially tobacco smoke). Your condition will flare from time to time. There is no cure, but the symptoms can be treated. Bronchodilators (asthma medicine) are often helpful. Antibiotics help when infection is present. When shortness of breath is severe, we may prescribe cortisone medication. If medicine doesn't help enough, we can arrange for you to have an oxygen tank at home. Notify your doctor at once if sputum becomes thick, foul, or bloody, if you develop a fever or chest pain, or if your shortness of breath worsens. Chronic Alcoholism Your evaluation reveals evidence of chronic alcoholism, an addiction to alcohol. The tendency to alcoholism may be inherited. Chronic use of alcohol weakens muscles, causes fatty deposits in the liver, damages the stomach, makes you more prone to infections, and can cause defects in unborn children. In the long run, brain atrophy and cirrhosis of the liver result. You are also at greater risk for certain types of cancer, such as cancer of the mouth, throat, stomach, and liver. Counselling services are available to help you. In-hospital treatment programs often help. Support groups such as Alcoholics Anonymous can be very useful in beating this addiction. Your physician can make a referral for you. As alcoholics often are prone to other addictions, you should discuss your use of any other medications with the doctor. Try to reduce your daily alcohol consumption and stop getting intoxicated on a regular basis. Try to reduce your daily cigarette smoking to help slow the progression of your chronic lung disease. Follow-up at [facility] for help with your drinking problem. Get the albuterol prescription filled to help with your wheezing and shortness of breath. Follow-up with a local primary care provider to manage your chronic health problems. RETURN TO THE EMERGENCY ROOM IF ANY NEW OR WORSENING SYMPTOMS. Prescriptions: Albuterol Sulfate [Proair Hfa Inhalation Aerosol 8.5 gm Mdi] 2 puff IH Q4 PRN #1 mdi PRN Reason: Referrals: [facility] [Provider Group] - Follow up in 3-5 days Scribe Attestation: 09/15/18 03:40 I personally performed the services described in the documentation, reviewed and edited the documentation which was dictated to the scribe in my presence, and it accurately records my words and actions. (JACOBY BLAKE) Scribe Documentation - Scribe Written by Fred:: Fred Villatoro, 09/15/2018 03:36 acting as scribe for :: Marg[place]
[2018-09-15] MEDS ORDERED: IPRATROPIUM/ALBUTEROL 0.5-2.5 MG/3 ML AMPUL NEB ONE (03:23)
[2018-09-15] MEDS ORDERED: LIDOCAINE 2% VISCOUS SOLN 20 ML UDCUP PO ONE (03:23)
[2018-09-15] MEDS ORDERED: MAG HYDROX/AL HYDROX/SIMETH SUSP 30 ML UDCUP PO ONE (03:23)
[2018-09-15 04:15] LABS: CREATINE KINASE MB 5.98 ng/mL (<4.55)
[2018-09-15 04:20] LABS: TROPONIN I 0.037 ng/mL
[2018-09-15 04:33] VITALS: BP 130/72
== END 2018-09-15 04:44 | disposition home or self-care (01) ==
LOC: ER 03:03
DX: J44.9 Chronic obstructive pulmonary disease, unspecified (principal); F41.9 Anxiety disorder, unspecified; R10.13 Epigastric pain; R53.1 Weakness; F10.10 Alcohol abuse, uncomplicated; I25.10 Atherosclerotic heart disease of native coronary artery without angina pectoris; I10 Essential (primary) hypertension; I25.2 Old myocardial infarction; F17.210 Nicotine dependence, cigarettes, uncomplicated; Z71.6 Tobacco abuse counseling; Z87.01 Personal history of pneumonia (recurrent)
CPT/HCPCS: 99406; 94640; 99284; 36415; 82553; 80307; 82550; 83690; 84484; J3490; A9270; J7620

== ENCOUNTER 2018-09-27 18:09 | Emergency (ER) | payer MEDICARE, MEDICAID ==
[2018-09-27] MEDS ORDERED: ASPIRIN 81 MG TABLET, CHEWABLE PO ONE (19:01)
--- NOTE | 2018-09-27 19:25 | RADIOLOGY REPORT (SQ) ---
EXAM DESCRIPTION: CHEST SINGLE VIEW COMPLETED DATE/TIME: 09/27/2018 7:13 pm REASON FOR STUDY: SOB COMPARISON: 09/15/2018 and earlier EXAM PARAMETERS: NUMBER OF VIEWS: One view. TECHNIQUE: Single frontal radiographic view of the chest acquired. RADIATION DOSE: NA LIMITATIONS: None. FINDINGS: LUNGS AND PLEURA: Linear right infrahilar opacity, likely representing atelectasis. No ad ditional airspace opacities. No pleural effusion or pneumothorax. MEDIASTINUM AND HILAR STRUCTURES: No masses. Contour normal. HEART AND VASCULAR STRUCTURES: Heart normal in size. Normal vasculature. BONES: Chronic bilateral rib fractures. HARDWARE: None in the chest. OTHER: No other significant finding. IMPRESSION: NO ACUTE RADIOGRAPHIC FINDING IN THE CHEST. TECHNICAL DOCUMENTATION: JOB ID: [id number] [email or web address]- All Rights Reserved Reading location - IP/workstation name: [email or web address]
[2018-09-27 19:35] LABS: HEMOGLOBIN 12.6 g/dL (13.5-17.0); MEAN CORPUSCULAR HEMOGLOBIN 30.2 pg (27.0-33.4); MEAN CORPUSCULAR HGB CONC 34.2 g/dL (32.0-36.0); MEAN CORPUSCULAR VOLUME 88 fl (80-97); PLATELET COUNT 211 10^3/uL (150-450); RED BLOOD COUNT 4.19 10^6/uL (4.35-5.55); WHITE BLOOD COUNT 4.8 10^3/uL (4.0-10.5)
[2018-09-27 19:41] LABS: ALANINE AMINOTRANSFERASE 54 U/L (21-72); ALKALINE PHOSPHATASE 87 U/L (38-126); ANION GAP 10 (5-19); ASPARTATE AMINO TRANSFERASE 80 U/L (17-59); BILIRUBIN,DIRECT 0.1 mg/dL (0.0-0.4); BILIRUBIN,TOTAL 0.5 mg/dL (0.2-1.3); BLOOD UREA NITROGEN 8 mg/dL (7-20); CALCIUM 8.5 mg/dL (8.4-10.2); CARBON DIOXIDE 25 mmol/L (22-30); CHLORIDE 89 mmol/L (98-107); CREATINE KINASE 497 U/L (55-170); GLUCOSE 103 mg/dL (75-110); POTASSIUM 4.3 mmol/L (3.6-5.0); SODIUM 123.8 mmol/L (137-145); TOTAL PROTEIN 6.7 g/dL (6.3-8.2)
[2018-09-27 19:46] LABS: ALCOHOL < 10 mg/dL (NONE DETECTED)
[2018-09-27 19:52] LABS: CREATINE KINASE MB 7.71 ng/mL (<4.55)
--- NOTE | 2018-09-27 19:52 | ER Document Report ---
ED General - General Mode of Arrival: Ambulatory Information source: Patient TRAVEL OUTSIDE OF THE [place] IN LAST 30 DAYS: No <OLIVER PURCELL - Last Filed: 09/28/18 01:06> <JOSE D VARGAS - Last Filed: 09/28/18 01:08> - General Chief Complaint: Breathing Difficulty Stated Complaint: DIFFICULTY BREATHING Time Seen by Provider: 09/27/18 18:33 Notes: Patient is a 62 year old male with COPD and a history of alcohol abuse presents to the emergency department complaining of multiple symptoms including abdominal pain, chest pain, tremors and shortness of breath. Patient states his shortness of breath was onset 2-3 days ago and has worsened today. He reports also having productive cough. He states he used 2-3 breathing treatments at home today with no relief. He also states he attempted to drink a beer today but could not due so and vomited. He states his primary concern today is his chest pain and shortness of breath. He also complains of a subjective fever. 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 Takes ASA now, used to be on hypertensive medications, Hx Hypercholesterolemia, Hx Hypertension Pulmonary Medical History: Reports: Hx Asthma, Hx COPD, Hx Pneumonia Musculoskeletal Medical History: Reports Hx Arthritis - chronic spine disorder, Reports Hx Musculoskeletal Deformity, Reports Hx Musculoskeletal Trauma Psychiatric Medical History: Reports: Hx Borderline Personality Disorder, Hx Depression Traumatic Medical History: Reports: Hx Fractures - Left rib fractures with pneumothorax requiring chest tube on 05/23/2016 Past Surgical History: Reports: Hx Cardiac Catheterization - Immunizations Immunizations up to date: Yes Hx Diphtheria, Pertussis, Tetanus Vaccination: Yes Hx Pneumococcal Vaccination: 02/22/13 <OLIVER PURCELL - Last Filed: 09/28/18 01:06> Review of Systems - Review of Systems Constitutional: See HPI, Fever - subjective EENT: No symptoms reported Cardiovascular: No symptoms reported Respiratory: See HPI, Cough, Short of breath Gastrointestinal: See HPI, Abdominal pain, Vomiting Genitourinary: No symptoms reported Male Genitourinary: No symptoms reported Musculoskeletal: See HPI Skin: No symptoms reported Hematologic/Lymphatic: No symptoms reported Neurological/Psychological: No symptoms reported -: Yes All other systems reviewed and negative <JAZZYPHANAMAYA - Last Filed: 09/28/18 01:06> Physical Exam <JAZZYPHANAMAYA - Last Filed: 09/28/18 01:06> - Vital signs Vitals: Temp Pulse Resp BP Pulse Ox 97.9 F 92 34 H 163/77 H 100 09/27/18 18:24 09/27/18 18:24 09/27/18 18:24 09/27/18 18:24 09/27/18 18:24 - Notes Notes: GENERAL: Alert, interacts well. No acute distress. HEAD: Normocephalic, atraumatic. EYES: Pupils equal, round, and reactive to light. Extraocular movements intact. ENT: Oral mucosa moist, tongue midline. NECK: Full range of motion. Supple. Trachea midline. LUNGS: Tachypneic. Clear to auscultation bilaterally, no wheezes, rales, or rhonchi. No respiratory distress. HEART: Regular rate and rhythm. No murmurs, gallops, or rubs. ABDOMEN: Soft, non-tender. Non-distended. Bowel sounds present in all 4 quadrants. EXTREMITIES: Moves all 4 extremities spontaneously, gross tremors, no asterixis. No edema, radial and dorsalis pedis pulses 2/4 bilaterally. No cyanosis. NEUROLOGICAL: Alert and oriented x3. Normal speech. PSYCH: Anxious. SKIN: Hot to touch, dry, normal turgor. No rashes or lesions noted. BACK: Thoracic kyphosis. (JAZZYOLIVER) Course - Laboratory Result Diagrams: 09/27/18 19:14 09/27/18 19:14 <JAZZYOLIVER - Last Filed: 09/28/18 01:06> - Laboratory Result Diagrams: 09/27/18 19:14 09/27/18 19:14 <JOSE D VARGAS - Last Filed: 09/28/18 01:08> - Re-evaluation Re-evalutation: 09/28/18 00:27 CBC shows mild anemia with hemoglobin 12.6, CMP shows chronic hyponatremia with a sodium of 123.8, there is no altered mental status, cardiac enzymes are negative x2, alcohol level is less than 10, chest x-ray shows atelectasis but no acute process. EKG is nonischemic. Patient has a moderate tremor which did improve with Ativan. Patient is known to be a daily drinker. Patient states that he is decided to quit drinking alcohol. States that he has done this before for several years at a time and his last drink was yesterday. States he has never had seizures but has had some anxiety with his withdrawals. At present I think his tremors are probably coming from alcohol withdrawal. Patient will be given another milligram of Ativan and discharged home on a Librium taper. (JOSE D VARGAS) - Vital Signs Vital signs: Temp Pulse Resp BP Pulse Ox 97.9 F 92 17 92/58 L 95 09/27/18 18:24 09/27/18 18:24 09/28/18 01:01 09/28/18 01:01 09/28/18 01:01 - Laboratory Laboratory results interpreted by me: 09/27/18 09/27/18 09/27/18 19:14 19:14 19:14 RBC 4.19 L Hgb 12.6 L Hct 37.0 L RDW 16.0 H Monocytes % (Manual) 23 H Sodium 123.8 L Chloride 89 L AST 80 H Creatine Kinase 497 H CK-MB (CK-2) 7.71 H - EKG Interpretation by Me Additional EKG results interpreted by me: 09/28/18 00:28 EKG shows sinus rhythm at a rate of 96, normal axis, normal intervals, no ST segment elevations or depressions, no T wave inversions per my interpretation. (JOSE D VARGAS) Discharge <OLIVER PURCELL - Last Filed: 09/28/18 01:06> <JOSE D VARGAS - Last Filed: 09/28/18 01:08> - Discharge Clinical Impression: Hyponatremia Alcohol withdrawal Qualifiers: Complication of substance-induced condition: uncomplicated Qualified Code(s): F10.230 - Alcohol dependence with withdrawal, uncomplicated Condition: Stable Disposition: HOME, SELF-CARE Additional Instructions: Alcohol Withdrawal Your symptoms are caused by alcohol withdrawal. After a period of frequent drinking, the brain and body are changed by the alcohol. When you quit or reduce your drinking, the nervous system becomes unstable. Withdrawal symptoms can start a few hours after your last drink, but sometimes don't begin until a couple of days later. Symptoms can include shakiness, sweating, insomnia, nause a, vomiting, fearfulness, hallucinations, and seizures. In addition to the acute effects of alcohol withdrawal, we often have to deal with the medical effects of alcoholism. These problems often include dehydration, stomach irritation, intestinal bleeding, low blood sugar, liver disease, and pancreas inflammation. Treatment for alcohol withdrawal includes mild sedatives, vitamins, and fl uids. You need to be with someone who can help if symptoms become severe. Many patients can withdraw at home. Admission to the hospital or a detox facility may be necessary if withdrawal symptoms are severe and uncontrollable. Abstaining from alcohol is the only effective long-term treatment. If you start drinking again, you will not be able to control yourself after the first drink. Treatment programs are available. In addition, many alcoholics benefit from Alcoholics Anonymous or other support groups available through your counselor or [employer] insecticide mixer. [facility] and [facility] are support groups for friends and family members of an alcoholic. Go to the emergency room if you develop persistent vomiting, severe abdominal pain, fever, shortness of breath, hallucinations, uncontrollable tremors, or seizures. Prescriptions: Chlordiazepoxide HCl [Librium 25 mg Capsule] 1 cap PO ASDIR #30 capsule Referrals: LESLY BRYAN MD [Primary Care Provider] - Follow up as needed Scribe Attestation: 09/28/18 01:08 I personally performed the services described in the documentation, reviewed and edited the documentation which was dictated to the scribe in my presence, and it accurately records my words and actions. (JOSE D VARGAS) Scribe Documentation - Scribe Written by Fred:: Fred Villatoro, 09/27/2018 20:00 acting as scribe for :: Sparkle <OLIVER PURCELL - Last Filed: 09/28/18 01:06>
[2018-09-27 19:53] LABS: ABSOLUTE LYMPHOCYTES# (MANUAL) 1.1 10^3/uL (0.5-4.7); ABSOLUTE MONOCYTES # (MANUAL) 1.1 10^3/uL (0.1-1.4); ABSOLUTE NEUTROPHILS# (MANUAL) 2.5 10^3/uL (1.7-8.2); BASOPHILS % (MANUAL) 1 % (0-2); EOSINOPHILS % (MANUAL) 1 % (0-6); LYMPHOCYTES % (MANUAL) 23 % (13-45); MONOCYTES % (MANUAL) 23 % (3-13); SEGMENTED NEUTROPHILS % (MAN) 52 % (42-78); TOTAL CELLS COUNTED 100
[2018-09-27 19:54] LABS: TROPONIN I < 0.012 ng/mL
[2018-09-27 19:55] LABS: ANISOCYTOSIS 1+; BURR CELLS SLIGHT; OVALOCYTES 1+; PLATELET COMMENT ADEQUATE; POIKILOCYTOSIS 1+; TEAR DROP CELLS 1+; TOXIC GRANULATION SLIGHT; TOXIC VACUOLATION PRESENT
[2018-09-27] MEDS ORDERED: LORAZEPAM 1 MG TABLET PO ONE (20:36)
--- NOTE | 2018-09-27 21:54 | EKG REPORT ---
SEVERITY:- NORMAL ECG - SINUS RHYTHM : Confirmed by: Lázaro De La Garza MD 27-Sep-2018 21:53:39
[2018-09-28] MEDS ORDERED: LORAZEPAM 1 MG TABLET PO ONE (00:26)
[2018-09-28 01:02] VITALS: BP 92/58
== END 2018-09-28 01:11 | disposition home or self-care (01) ==
LOC: ER 18:09
DX: E87.1 Hypo-osmolality and hyponatremia (principal); F10.230 Alcohol dependence with withdrawal, uncomplicated; R06.02 Shortness of breath; J44.9 Chronic obstructive pulmonary disease, unspecified; R10.9 Unspecified abdominal pain; R07.9 Chest pain, unspecified; R25.1 Tremor, unspecified; R11.10 Vomiting, unspecified; R50.9 Fever, unspecified; F17.200 Nicotine dependence, unspecified, uncomplicated; I25.10 Atherosclerotic heart disease of native coronary artery without angina pectoris; I10 Essential (primary) hypertension
CPT/HCPCS: 93005; 99285; 36415; 82553; 80307; 82550; 85025; 80053; 84484; 71045; 93010; A9270 ×3

== ENCOUNTER 2018-10-10 19:50 | Emergency (ER) | payer MEDICARE, MEDICAID ==
[2018-10-10] MEDS ORDERED: IPRATROPIUM/ALBUTEROL 0.5-2.5 MG/3 ML AMPUL NEB ONE ×3 (20:08→20:09)
[2018-10-10] MEDS ORDERED: METHYLPREDNISOLONE INJ 125 MG/2 ML SDV IV ONE (20:09)
--- NOTE | 2018-10-10 20:13 | ER Document Report ---
ED Medical Screen (RME) - General Chief Complaint: Shortness Of Breath Stated Complaint: DIFFICULTY BREATHING Time Seen by Provider: 10/10/18 20:02 Primary Care Provider: LESLY BRYAN MD [Primary Care Provider] - Follow up as needed Notes: 63-year-old male with known COPD and continued smoking comes with chief complaint of worsening shortness of breath for 3 days or so. States his home nebulizer machine is broken. Reports tightness in his chest but no specific chest pain. Reports productive cough but no fever. Denies being on home oxygen. TRAVEL OUTSIDE OF THE [place] 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 Takes ASA now, used to be on hypertensive medications, Hx Hypercholesterolemia, Hx Hypertension Pulmonary Medical History: Reports: Hx Asthma, Hx COPD, Hx Pneumonia Denies: Hx Bronchitis Neurological Medical History: Denies: Hx Cerebrovascular Accident, Hx Seizures Renal/ Medical History: Denies: Hx Peritoneal Dialysis Musculoskeltal Medical History: Reports Hx Arthritis - chronic spine disorder, Reports Hx Musculoskeletal Deformity, Reports Hx Musculoskeletal Trauma Psychiatric Medical History: Reports: Hx Borderline Personality Disorder, Hx Depression Traumatic Medical History: Reports: Hx Fractures - Left rib fractures with pneumothorax requiring chest tube on 05/23/2016 Past Surgical History: Reports: Hx Cardiac Catheterization - Immunizations Immunizations up to date: Yes Hx Diphtheria, Pertussis, Tetanus Vaccination: Yes History of Influenza Vaccine for 06/2017 - 11/2017 Season: Yes Influenza Administration Date for 06/2017 - 11/2017 Season: 06/16/17 Physical Exam - Vital signs Vitals: Temp Pulse Resp BP Pulse Ox 98.1 F 82 24 H 141/79 H 84 L 10/10/18 19:55 10/10/18 19:55 10/10/18 19:55 10/10/18 19:55 10/10/18 19:55 - Respiratory Respiratory status: Labored Breath sounds: Decreased air movement, Nonproductive cough, Wheezing Course - Re-evaluation Re-evalutation: Patient with decreased breath sounds, wheezing, initial pulse oxygen saturation on room air is 84%. This improved to 100% on 3 L, initiating treatments, triage at level 2 (yellow). - Vital Signs Vital signs: Temp Pulse Resp BP Pulse Ox 98.1 F 82 24 H 141/79 H 84 L 10/10/18 19:55 10/10/18 19:55 10/10/18 19:55 10/10/18 19:55 10/10/18 19:55 Doctor's Discharge - Discharge Referrals: LESLY BRYAN MD [Primary Care Provider] - Follow up as needed
--- NOTE | 2018-10-10 21:12 | RADIOLOGY REPORT (SQ) ---
EXAM DESCRIPTION: XR CHEST 1 VIEW COMPLETED DATE/TME: 10/10/2018 20:09 CLINICAL HISTORY: 63 years, Male, shortness of breath COMPARISON: 09/27/2018 chest NUMBER OF VIEWS: 1 TECHNIQUE: Chest LIMITATIONS: None. FINDINGS: Heart size is normal. Atheromatous change thoracic aorta. Osteopenia with scoliosis of the mid to upper thoracic spine. Multiple old rib fractures bilaterally. Underlying COPD. No pneumothorax. Minor scarring right lung base. Lungs are otherwise clear IMPRESSION: COPD. No acute cardiopulmonary process copyright 2010 [employer]- All Rights Reserved
[2018-10-10] MEDS ORDERED: ALBUTEROL SULFATE HFA (90 MCG/PUFF) 8 GM MDI (1 MDI/ER DISP) IH ONE (21:33)
--- NOTE | 2018-10-10 21:38 | ER Document Report ---
ED Respiratory Problem - General Chief Complaint: Shortness Of Breath Stated Complaint: DIFFICULTY BREATHING Time Seen by Provider: 10/10/18 20:02 Primary Care Provider: LESLY BRYAN MD [Primary Care Provider] - Follow up tomorrow Notes: Patient is a 63 year old male with COPD and continued smoking that comes to the emergency department for chief complaint of worsening shortness of breath and wheezing for the past 3 days or so. He states his home nebulizer machine is broken. He states he has had a tightness in his chest with wheezing but he denies chest pain. Reports cough which is his normal, denies different cough or fever. He is not on home oxygen. He denies any other complaints. TRAVEL OUTSIDE OF THE [place] 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 Takes ASA now, used to be on hypertensive medications, Hx Hypercholesterolemia, Hx Hypertension Pulmonary Medical History: Reports: Hx Asthma, Hx COPD, Hx Pneumonia Denies: Hx Bronchitis Neurological Medical History: Denies: Hx Cerebrovascular Accident, Hx Seizures Renal/ Medical History: Denies: Hx Peritoneal Dialysis Musculoskeletal Medical History: Reports Hx Arthritis - chronic spine disorder, Reports Hx Musculoskeletal Deformity, Reports Hx Musculoskeletal Trauma Psychiatric Medical History: Reports: Hx Borderline Personality Disorder, Hx Depression Traumatic Medical History: Reports: Hx Fractures - Left rib fractures with pneumothorax requiring chest tube on 05/23/2016 Past Surgical History: Reports: Hx Cardiac Catheterization - Immunizations Immunizations up to date: Yes Hx Diphtheria, Pertussis, Tetanus Vaccination: Yes Hx Pneumococcal Vaccination: 02/22/13 Review of Systems - Review of Systems Constitutional: No symptoms reported EENT: No symptoms reported Cardiovascular: No symptoms reported Respiratory: See HPI Gastrointestinal: No symptoms reported Genitourinary: No symptoms reported Male Genitourinary: No symptoms reported Musculoskeletal: No symptoms reported Skin: No symptoms reported Hematologic/Lymphatic: No symptoms reported Neurological/Psychological: No symptoms reported Physical Exam - Vital signs Vitals: Temp Pulse Resp BP Pulse Ox 98.1 F 82 24 H 141/79 H 84 L 10/10/18 19:55 10/10/18 19:55 10/10/18 19:55 10/10/18 19:55 10/10/18 19:55 - Notes Notes: GENERAL: Somewhat disheveled but alert and interactive HEAD: Normocephalic, atraumatic. EYES: Pupils equal, round, and reactive to light. Extraocular movements intact. ENT: Oral mucosa moist, tongue midline. Oropharynx unremarkable. Airway patent. Nares patent, no nasal septal hematoma, TM's intact. NECK: Full range of motion. Supple. Trachea midline. LUNGS: Diminished throughout. Expiratory wheezes throughout. Borderline tachypnea. Able to speak in complete sentences. HEART: Regular rate and rhythm. No murmur ABDOMEN: Soft, non-tender. Non-distended. Bowel sounds present in all 4 quadrants. GENITOURINARY: Deferred EXTREMITIES: Moves all 4 extremities spontaneously. No edema, normal radial and dorsalis pedis pulses bilaterally. No cyanosis. BACK: no cervical, thoracic, lumbar midline tenderness. No saddle anesthesia, normal distal neurovascular exam. NEUROLOGICAL: Alert and oriented x3. Normal speech. [cranial nerves II through XII grossly intact]. PSYCH: Normal affect, normal mood. SKIN: Warm, dry, normal turgor. No rashes or lesions noted. Course - Re-evaluation Re-evalutation: Patient initially with expiratory wheezes and very diminished lung sounds with borderline tachypnea. He was not in severe distress. He was given multiple duo nebs, steroids. On reevaluation, symptoms have resolved. Wheezing is resolved, hypoxia is resolved, tachypnea resolved. On my evaluation patient is 99% on room air. Chest x-ray is unremarkable. Patient is asking to leave now. He states he needs an inhaler for tonight, states he is going to his primary care provider tomorrow to get a new nebulizer machine. He states he wants his labs canceled and he wants to leave now. Chest x-ray unremarkable. Labs canceled based on patient's symptom resolution and evaluation with resolved hypoxia. Patient provided with an inhaler, prednisone. Discussed follow-up and return precautions. Patient states understanding and agreement. Stable at time of discharge. - Vital Signs Vital signs: Temp Pulse Resp BP Pulse Ox 98.1 F 74 24 H 150/79 H 100 10/10/18 19:55 10/10/18 21:44 10/10/18 19:55 10/10/18 21:44 10/10/18 21:44 - Laboratory Result Diagrams: 10/10/18 21:14 10/10/18 21:14 Discharge - Discharge Clinical Impression: COPD exacerbation, Wheezing Condition: Stable Disposition: HOME, SELF-CARE Additional Instructions: Use inhaler prescribed, follow-up tomorrow with your primary care provider as discussed. I recommend taking the prednisone as prescribed. Continue home breathing treatments. Return if you worsen including fever, passing out, worsening difficulty breathing, or any other concerning or worsening symptoms. Prescriptions: Prednisone [Deltasone 20 mg Tablet] 3 tab PO DAILY 5 Days tablet Referrals: LESLY BRYAN MD [Primary Care Provider] - Follow up tomorrow
[2018-10-10 22:18] VITALS: BP 150/79
== END 2018-10-10 21:44 | disposition home or self-care (01) ==
LOC: ER 19:50
DX: J44.1 Chronic obstructive pulmonary disease with (acute) exacerbation (principal); R06.2 Wheezing; F17.200 Nicotine dependence, unspecified, uncomplicated; I25.10 Atherosclerotic heart disease of native coronary artery without angina pectoris; I25.2 Old myocardial infarction; Z79.82 Long term (current) use of aspirin; E78.00 Pure hypercholesterolemia, unspecified; I10 Essential (primary) hypertension
CPT/HCPCS: 94640; 99285; 96374; 71045; J2930; J3490; A9270; J7620

== ENCOUNTER 2018-10-23 13:12 | Emergency (ER) | payer MEDICARE, MEDICAID ==
[2018-10-23 13:26] VITALS: BP 124/67
[2018-10-23] MEDS ORDERED: IPRATROPIUM/ALBUTEROL 0.5-2.5 MG/3 ML AMPUL NEB ONE (13:55)
[2018-10-23] MEDS ORDERED: METHYLPREDNISOLONE INJ 125 MG/2 ML SDV IV ONE (13:55)
--- NOTE | 2018-10-23 14:00 | ER Document Report ---
ED Medical Screen (RME) - General Chief Complaint: Shortness Of Breath Stated Complaint: BREATHING PROBLEMS Time Seen by Provider: 10/23/18 13:50 Primary Care Provider: LESLY BRYAN MD [Primary Care Provider] - Follow up as needed Mode of Arrival: Wheelchair Information source: Patient Notes: 63-year-old male with a history of COPD presents the emergency department stating that his nebulizer is broken he scheduled to get one tomorrow. He states that he is not been able to have any nebulizer treatments in the last 4 days. Patient is complaining of chest pain shortness of breath. Patient states that the chest pain is a dull pressure sensation in the center of the chest. No radiation the pain. No alleviating or exacerbating factors. Patient is speakin g in full sentences. He is in no acute distress. I have greeted and performed a rapid initial assessment of this patient. A comprehensive ED assessment and evaluation of the patient, analysis of test results and completion of the medical decision making process will be conducted by additional ED providers. PHYSICAL EXAMINATION: GENERAL: Well-appearing, well-nourished and in no acute distress. EYES: Pupils equal round extraocular movements intact, conjunctiva are normal. ENT: Nares patent LUNGS: expiratory wheezing. Musculoskeletal: Normal range of motion SKIN: Warm, Dry, normal turgor, no rashes or lesions noted. TRAVEL OUTSIDE OF THE [place] 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 Takes ASA now, used to be on hypertensive medications, Hx Hypercholesterolemia, Hx Hypertension Pulmonary Medical History: Reports: Hx Asthma, Hx COPD, Hx Pneumonia Denies: Hx Bronchitis Neurological Medical History: Denies: Hx Cerebrovascular Accident, Hx Seizures Renal/ Medical History: Denies: Hx Peritoneal Dialysis Musculoskeltal Medical History: Reports Hx Arthritis - chronic spine disorder, Reports Hx Musculoskeletal Deformity, Reports Hx Musculoskeletal Trauma Psychiatric Medical History: Reports: Hx Borderline Personality Disorder, Hx Depression Traumatic Medical History: Reports: Hx Fractures - Left rib fractures with pneumothorax requiring chest tube on 05/23/2016 Past Surgical History: Reports: Hx Cardiac Catheterization - Immunizations Immunizations up to date: Yes Hx Diphtheria, Pertussis, Tetanus Vaccination: Yes History of Influenza Vaccine for 06/2017 - 11/2017 Season: Yes Influenza Administration Date for 06/2017 - 11/2017 Season: 06/16/17 Physical Exam - Vital signs Vitals: Temp Pulse Resp BP Pulse Ox 98.1 F 90 28 H 124/67 89 L 10/23/18 13:24 10/23/18 13:24 10/23/18 13:24 10/23/18 13:24 10/23/18 13:24 Course - Vital Signs Vital signs: Temp Pulse Resp BP Pulse Ox 98.1 F 90 28 H 124/67 89 L 10/23/18 13:24 10/23/18 13:24 10/23/18 13:24 10/23/18 13:24 10/23/18 13:24 Doctor's Discharge - Discharge Referrals: LESLY BRYAN MD [Primary Care Provider] - Follow up as needed
--- NOTE | 2018-10-26 23:59 | EKG REPORT ---
SEVERITY:- NORMAL ECG - SINUS RHYTHM : Confirmed by: Renee Gill 26-Oct-2018 23:57:58
== END 2018-10-23 19:15 | disposition left against medical advice (07) ==
LOC: ER 13:12
DX: R06.02 Shortness of breath (principal); J44.9 Chronic obstructive pulmonary disease, unspecified; I25.10 Atherosclerotic heart disease of native coronary artery without angina pectoris; I25.2 Old myocardial infarction; E78.00 Pure hypercholesterolemia, unspecified; I10 Essential (primary) hypertension
CPT/HCPCS: 93005; 93010; 99281

== ENCOUNTER 2018-10-24 01:46 | Emergency (ER) | payer MEDICARE, MEDICAID ==
[2018-10-24 02:00] VITALS: BP 148/61
--- NOTE | 2018-10-24 02:00 | ER Document Report ---
ED General - General Stated Complaint: DIFFICULTY BREATHING Time Seen by Provider: 10/24/18 01:53 Primary Care Provider: LESLY BRYAN MD [Primary Care Provider] - Follow up as needed Cannot obtain history due to: Intoxicated Notes: Patient is a 63-year-old male known to me and the entire staff of this emergency department for frequent visits who presents allegedly for complaints of shortness of breath. Patient is heavily intoxicated. [facility], left without being seen after initial screening evaluation. EMS reports that this is the third time that he they have been contacted to, to his home setting within the past 24 hours. They report that his home was filled with smoke from cigarettes and that the patient was extremely intoxicated with liquor bottles next to him. The patient is unable to provide meaningful history secondary to his degree of intoxication. This is very similar to a multitude of presentations for which I have seen this patient in the past. TRAVEL OUTSIDE OF THE [place] 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 Takes ASA now, used to be on hypertensive medications, Hx Hypercholesterolemia, Hx Hypertension Pulmonary Medical History: Reports: Hx Asthma, Hx COPD, Hx Pneumonia Denies: Hx Bronchitis Neurological Medical History: Denies: Hx Cerebrovascular Accident, Hx Seizures Renal/ Medical History: Denies: Hx Peritoneal Dialysis Musculoskeletal Medical History: Reports Hx Arthritis - chronic spine disorder, Reports Hx Musculoskeletal Deformity, Reports Hx Musculoskeletal Trauma Psychiatric Medical History: Reports: Hx Borderline Personality Disorder, Hx Depression Traumatic Medical History: Reports: Hx Fractures - Left rib fractures with pneumothorax requiring chest tube on 05/23/2016 Past Surgical History: Reports: Hx Cardiac Catheterization - Immunizations Immunizations up to date: Yes Hx Diphtheria, Pertussis, Tetanus Vaccination: Yes Hx Pneumococcal Vaccination: 02/22/13 Review of Systems - Review of Systems Notes: Constitutional: Negative for fever. HENT: Negative for sore throat. Eyes: Negative for visual changes. Cardiovascular: Negative for chest pain. Respiratory: Positive for shortness of breath. Gastrointestinal: Negative for abdominal pain, vomiting or diarrhea. Genitourinary: Negative for dysuria. Musculoskeletal: Negative for back pain. Skin: Negative for rash. Neurological: Negative for headaches, weakness or numbness. 10 point ROS negative except as marked above and in HPI. Physical Exam - Vital signs Vitals: Pulse Resp BP Pulse Ox 99 24 H 148/61 H 96 10/24/18 01:46 10/24/18 01:46 10/24/18 01:46 10/24/18 01:46 Interpretation: Normal Notes: PHYSICAL EXAMINATION: GENERAL: Appears much older than stated age. Intoxicated but in no distress HEAD: Atraumatic, normocephalic. EYES: Pupils equal round and reactive to light, extraocular movements intact, sclera anicteric, conjunctiva are normal. ENT: nares patent, oropharynx clear without exudates. Dry mucous membranes. NECK: Normal range of motion, supple without lymphadenopathy LUNGS: Normal work of breathing. Very faint extra Tory wheezing in all lung lerner. HEART: Regular rate and rhythm without murmurs ABDOMEN: Soft, nontender, normoactive bowel sounds. No guarding, no rebound. No masses appreciated. EXTREMITIES: Normal range of motion, no pitting or edema. No cyanosis. NEUROLOGICAL: No focal neurological deficits. Moves all extremities spontaneously and on command. PSYCH: Intoxicated, somewhat agitated SKIN: Warm, Dry, normal turgor, no rashes or lesions noted. Course - Re-evaluation Re-evalutation: 10/24/18 01:59 Patient presents with apparent complaints of shortness of breath although this is identical to previous presentations for which the patient has come in for alcohol intoxication and ongoing tobacco abuse. The patient was here earlier today, complained of similar issues, left after being evaluated initially. At the time of evaluation the patient has no significant shortness of breath and only very minimal wheezing. Will obtain basic labs, chest x-ray, EKG. Patient is a very strong history of leaving AGAINST MEDICAL ADVICE or eloping from the department. Will monitor and continue to complete a workup unless the patient elects to leave. 10/24/18 02:41 As anticipated the patient has eloped. No workup was able to be completed. - Vital Signs Vital signs: Temp Pulse Resp BP Pulse Ox 99 24 H 148/61 H 96 10/24/18 01:46 10/24/18 01:46 10/24/18 01:46 10/24/18 01:46 Discharge - Discharge Clinical Impression: COPD exacerbation, Alcohol abuse, Medically noncompliant Alcohol intoxication Qualifiers: Complication of substance-induced condition: uncomplicated Qualified Code(s): F10.920 - Alcohol use, unspecified with intoxication, uncomplicated Condition: Stable Disposition: ELOPED Referrals: LESLY BRYAN MD [Primary Care Provider] - Follow up as needed
--- NOTE | 2018-10-24 12:40 | EKG REPORT ---
SEVERITY:- OTHERWISE NORMAL ECG - SINUS RHYTHM BORDERLINE RIGHT AXIS DEVIATION : Confirmed by: Renee Gill 24-Oct-2018 12:39:22
== END 2018-10-24 02:21 | disposition left against medical advice (07) ==
LOC: ER 01:46
DX: J44.1 Chronic obstructive pulmonary disease with (acute) exacerbation (principal); R06.02 Shortness of breath; F10.120 Alcohol abuse with intoxication, uncomplicated; Z91.19 Patient's noncompliance with other medical treatment and regimen; F17.210 Nicotine dependence, cigarettes, uncomplicated; I25.10 Atherosclerotic heart disease of native coronary artery without angina pectoris; I10 Essential (primary) hypertension; I25.2 Old myocardial infarction; Z87.01 Personal history of pneumonia (recurrent)
CPT/HCPCS: 93005; 93010; 99281

== ENCOUNTER 2018-10-25 21:01 | Observation (INO) | payer MEDICARE, MEDICAID ==
[2018-10-25] MEDS ORDERED: IPRATROPIUM/ALBUTEROL 0.5-2.5 MG/3 ML AMPUL NEB ONE (21:12)
[2018-10-25] MEDS ORDERED: ALBUTEROL SULFATE 0.083% NEB 2.5 MG/3 ML AMPUL NEB ONE (21:18)
[2018-10-25] MEDS ORDERED: NORMAL SALINE 1000 ML 1,000 ML IV ONE ×2 (21:19→23:48)
--- NOTE | 2018-10-25 21:22 | ER Document Report ---
ED General - General Stated Complaint: RESPIRATORY DISTRESS Time Seen by Provider: 10/25/18 21:10 Primary Care Provider: LESLY BRYAN MD [Primary Care Provider] - Follow up as needed Cannot obtain history due to: Intoxicated, Uncooperative Notes: Patient is a 63-year-old male, extremely well known to me from repeated visits to the emergency department and history of continuously eloping or leaving AGAINST MEDICAL ADVICE who presents by EMS. This is EMS a second contact with the patient within 24 hours. He apparently has been complaining of shortness of breath. On arrival, the patient is a very poor historian, appears intoxicated and admits to drinking heavily today. Patient reports that he is having difficulty breathing. History is otherwise unable to obtain secondary to the patient's intoxication and agitation. TRAVEL OUTSIDE OF THE [place] 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 Takes ASA now, used to be on hypertensive medications, Hx Hypercholesterolemia, Hx Hypertension Pulmonary Medical History: Reports: Hx Asthma, Hx COPD, Hx Pneumonia Denies: Hx Bronchitis Neurological Medical History: Denies: Hx Cerebrovascular Accident, Hx Seizures Renal/ Medical History: Denies: Hx Peritoneal Dialysis Musculoskeletal Medical History: Reports Hx Arthritis - chronic spine disorder, Reports Hx Musculoskeletal Deformity, Reports Hx Musculoskeletal Trauma Psychiatric Medical History: Reports: Hx Borderline Personality Disorder, Hx Depression Traumatic Medical History: Reports: Hx Fractures - Left rib fractures with pneumothorax requiring chest tube on 05/23/2016 Past Surgical History: Reports: Hx Cardiac Catheterization - Immunizations Immunizations up to date: Yes Hx Diphtheria, Pertussis, Tetanus Vaccination: Yes Hx Pneumococcal Vaccination: 02/22/13 Review of Systems - Review of Systems Notes: Constitutional: Negative for fever. HENT: Negative for sore throat. Eyes: Negative for visual changes. Cardiovascular: Negative for chest pain. Respiratory: Positive for shortness of breath. Gastrointestinal: Negative for abdominal pain, vomiting or diarrhea. Genitourinary: Negative for dysuria. Musculoskeletal: Negative for back pain. Skin: Negative for rash. Neurological: Negative for headaches, weakness or numbness. 10 point ROS negative except as marked above and in HPI. Physical Exam - Vital signs Vitals: Pulse Ox 88 L 10/25/18 21:09 Interpretation: Hypoxic, Tachypneic Notes: PHYSICAL EXAMINATION: GENERAL: Appears much older than stated age, chronically ill in appearance but in no acute distress HEAD: Atraumatic, normocephalic. EYES: Pupils equal round and reactive to light, extraocular movements intact, sclera anicteric, conjunctiva are normal. ENT: nares patent, oropharynx clear without exudates. Moderately dry mucous membranes. NECK: Normal range of motion, supple without lymphadenopathy LUNGS: Mild tachypnea, no retractions. Scattered extra Tory wheezing in the bases bilaterally.. HEART: Regular rate and rhythm without murmurs ABDOMEN: Soft, nontender, normoactive bowel sounds. No guarding, no rebound. No masses appreciated. EXTREMITIES: Normal range of motion, no pitting or edema. No cyanosis. NEUROLOGICAL: No focal neurological deficits. Moves all extremities spontaneously and on command. PSYCH: Intoxicated, agitated, yelling at nursing staff SKIN: Warm, Dry, normal turgor, no rashes or lesions noted. Course - Re-evaluation Re-evalutation: 10/25/18 21:21 Presentation of a patient very well known to me with complaints of shortness of breath. Appears to be consistent with underlying COPD exacerbation. Patient is unfortunately extraordinarily noncompliant, refuses to remain in the emergency department on pretty much every occasion for treatment or if he is hospitalized leaves AGAINST MEDICAL ADVICE. The patient smells very strongly of tobacco smoke, is continuing to abuse alcohol. The patient will be placed under standard care at this point for COPD exacerbation including monitoring, supplemental oxygen as he does rest to 85% on room air. He has a ready received Solu-Medrol 125 milligrams prior to my assessment given by EMS. Will start albuterol and ipratropium nebulizers. 2 g IV magnesium will be administered. IV fluid resuscitation will be given as patient does appear quite dehydrated. Will obtain chest x-ray and labs. These measures will be undertaken as long as the patient allows this and remains in the emergency department. 10/25/18 23:19 Patient is entered into atrial fibrillation with rapid ventricular response, rates in the 150s. He was in sinus rhythm previously. No hypotension. Patient will be given a diltiazem bolus followed by infusion. Patient's laboratories show hyponatremia, likely secondary to chronic alcohol abuse. Chest x-ray without acute infiltrates. Patient is saturating 93% on 3 L of nasal cannula but does not normally have a oxygen requirement. Will continue to reassess. 10/25/18 23:28 Patient is becoming more somnolent. Blood draw for venous blood gas. Will place on BiPAP. Patient is a DNR/DNI confirmed on file. Patient is unable to confirm this with me at this point due to somnolence. However review of multiple previous hospitalizations and discharge summaries does repeatedly confirm DNR status. 10/25/18 23:47 Patient has had some mild hypotension 99 systolic after infusion of 10 mg of diltiazem and initiation of BiPAP. IV fluid resuscitation has been reinitiated. We will continue to use lactated Ringer's for lower sodium content. Will continue to reassess at regular intervals. 10/26/18 00:43 Patient's mental status is moderately improved, pulling good tidal volumes on BiPAP. Does open eyes to loud voice. He has remained with a heart rate in the 80s without requiring diltiazem infusion after the initial bolus. Current pressure 104 and 67. Saturating 96% on current BiPAP settings. Maintenance fluids have been initiated. I did attempt to admit the patient to Dr. Santana is unable to accept at this time. 10/26/18 01:01 Patient is now waking up, demanding to stand up and urinate. It appears that the BiPAP is been effective in reducing the patient's hypercapnic respiratory failure with associated respiratory acidosis. He is now alert and oriented and actually again quite agitated. Patient is also converted into normal sinus rhythm. 10/26/18 01:58 Patient continues to mentate. Breathing improved. Blood pressure has likewise normalized currently 110 on 65. Remains in sinus rhythm. I have discussed with Dr. Santana the hospitalist who has been able to accept the patient at this time. - Vital Signs Vital signs: Temp Pulse Resp BP Pulse Ox 18 120/75 97 10/26/18 00:50 10/26/18 00:50 10/26/18 00:50 - Laboratory Result Diagrams: 10/25/18 21:56 10/25/18 21:56 Laboratory results interpreted by me: 10/25/18 10/25/18 10/25/18 21:56 21:56 23:35 WBC 11.7 H RBC 4.21 L Hgb 12.3 L Hct 36.3 L RDW 15.8 H Lymphocytes % 11.4 L Absolute Neutrophils 9.0 H VBG pH 7.18 L* VBG pCO2 78.8 H* Sodium 123.5 L Chloride 80 L Carbon Dioxide 32 H Creatinine 0.46 L Calcium 8.3 L 10/26/18 01:14 WBC RBC Hgb Hct RDW Lymphocytes % Absolute Neutrophils VBG pH 7.21 L VBG pCO2 72.3 H* Sodium Chloride Carbon Dioxide Creatinine Calcium - Diagnostic Test Radiology reviewed: Image reviewed, Reports reviewed Radiology results interpreted by me: 10/25/18 23:31 Chest x-ray: No acute infiltrate or pneumothorax - EKG Interpretation by Me Additional EKG results interpreted by me: 10/26/18 01:02 Atrial fibrillation, rate 89. No ST elevations or depressions. QTC is 424. Critical Care Note - Critical Care Note Total time excluding time spent on procedures (mins): 36 Comments: Critical care time spent obtaining history from patient or surrogate, discussions with consultants, development of treatment plan with patient or surrogate, evaluation of patient's response to treatment, examination of patient, ordering and performing treatments and interventions, ordering and review of laboratory studies, re-evaluation of patient's condition, ordering and review of radiographic studies and review of old charts Discharge - Discharge Clinical Impression: DNR (do not resuscitate), COPD exacerbation, Hypoxemia, Alcohol abuse, Acute respiratory failure with hypoxia and hypercarbia COPD (chronic obstructive pulmonary disease) Qualifiers: COPD type: unspecified COPD Qualified Code(s): J44.9 - Chronic obstructive pulmonary disease, unspecified Condition: Fair Disposition: ADMITTED OBSERVATION Admitting Provider: Hospitalist Unit Admitted: Telemetry Referrals: LESLY BRYAN MD [Primary Care Provider] - Follow up as needed
[2018-10-25] MEDS: MAGNESIUM SULFATE/D5W 1 GM/100 ML RTUPB IV SCH ×2 (21:48→23:15)
[2018-10-25 22:12] LABS: ABSOLUTE LYMPHOCYTES (AUTO) 1.3 10^3/uL (0.5-4.7); ABSOLUTE MONOCYTES (AUTO) 1.3 10^3/uL (0.1-1.4); BASOPHILS % (AUTO) 0.2 % (0-2); HEMATOCRIT 36.3 % (37.9-51.0); HEMOGLOBIN 12.3 g/dL (13.5-17.0); LYMPHOCYTES % (AUTO) 11.4 % (13-45); MEAN CORPUSCULAR HEMOGLOBIN 29.3 pg (27.0-33.4); MEAN CORPUSCULAR HGB CONC 33.9 g/dL (32.0-36.0); MEAN CORPUSCULAR VOLUME 86 fl (80-97); MONOCYTES % (AUTO) 10.8 % (3-13); PLATELET COUNT 262 10^3/uL (150-450); RED BLOOD COUNT 4.21 10^6/uL (4.35-5.55); RED CELL DISTRIBUTION WIDTH 15.8 % (11.5-14.0); SEGMENTED NEUTROPHILS % (AUTO) 77.6 % (42-78); TOTAL CELLS COUNTED % (AUTO) 100 %; WHITE BLOOD COUNT 11.7 10^3/uL (4.0-10.5)
--- NOTE | 2018-10-25 22:24 | RADIOLOGY REPORT (SQ) ---
EXAM DESCRIPTION: XR CHEST 1 VIEW COMPLETED DATE/TME: 10/25/2018 21:11 CLINICAL HISTORY: 63 years, Male, sob COMPARISON: 10/10/2018 chest NUMBER OF VIEWS: 1 TECHNIQUE: Portable chest LIMITATIONS: None. FINDINGS: Heart size is normal. Fibrotic changes bilaterally. Old rib fractures bilaterally. Osteopenia. No pneumothorax. IMPRESSION: No acute cardiopulmonary process. Fibrotic changes bilaterally copyright 2010 [employer]- All Rights Reserved
[2018-10-25 22:31] LABS: ALCOHOL 202 mg/dL (NONE DETECTED); ANION GAP 12 (5-19); BLOOD UREA NITROGEN 8 mg/dL (7-20); CALCIUM 8.3 mg/dL (8.4-10.2); CARBON DIOXIDE 32 mmol/L (22-30); CHLORIDE 80 mmol/L (98-107); GLUCOSE 92 mg/dL (75-110); POTASSIUM 4.7 mmol/L (3.6-5.0); SODIUM 123.5 mmol/L (137-145)
[2018-10-25] MEDS ORDERED: DILTIAZEM HCL INJ 25 MG/5 ML VIAL IV ONE (23:19)
[2018-10-25] MEDS ORDERED: DILTIAZEM HCL/D5W 125 MG/125 ML RTUINJ IV PRN (23:19)
[2018-10-25] MEDS ORDERED: THIAMINE HCL 500 MG in NORMAL SALINE 250 ML IV SCH (23:30)
[2018-10-25] MEDS ORDERED: RINGERS SOLUTION,LACTATED 1,000 ML IV ONE (23:48)
[2018-10-26 00:21] LABS: VENOUS BLOOD BASE EXCESS -1.4 mmol/L; VENOUS BLOOD HCO3 28.7 mmol/L (20-32)
[2018-10-26 00:27] LABS: VENOUS BLOOD PCO2 78.8 mmHg (35-63); VENOUS BLOOD PH 7.18 (7.30-7.42)
[2018-10-26] MEDS ORDERED: RINGERS SOLUTION,LACTATED 1,000 ML IV ONE (00:40)
[2018-10-26 01:25] LABS: VENOUS BLOOD BASE EXCESS -1.2 mmol/L; VENOUS BLOOD HCO3 28.3 mmol/L (20-32); VENOUS BLOOD PH 7.21 (7.30-7.42)
[2018-10-26 01:28] LABS: VENOUS BLOOD PCO2 72.3 mmHg (35-63)
[2018-10-26] MEDS ORDERED: ONDANSETRON 4 MG TAB.RAPDIS PO PRN (02:22)
[2018-10-26] MEDS ORDERED: MAGNESIUM HYDROXIDE SUSP 30 ML UDCUP PO PRN (02:22)
[2018-10-26] MEDS ORDERED: ONDANSETRON HCL INJ/PF 4 MG/2 ML SDV IV PRN (02:22)
[2018-10-26] MEDS ORDERED: MAG HYDROX/AL HYDROX/SIMETH SUSP 30 ML UDCUP PO PRN (02:22)
[2018-10-26] MEDS ORDERED: NALBUPHINE HCL INJ 10 MG/1 ML AMPULE IV PRN (02:35)
[2018-10-26] MEDS ORDERED: NICOTINE 21 MG/24 HR PATCH.TD24 TD PRN (02:35)
[2018-10-26] MEDS ORDERED: ALBUTEROL SULFATE 0.083% NEB 2.5 MG/3 ML AMPUL NEB PRN (02:35)
[2018-10-26] MEDS ORDERED: ACETAMINOPHEN 325 MG TABLET PO PRN (02:35)
[2018-10-26] MEDS ORDERED: METHYLPREDNISOLONE INJ 125 MG/2 ML SDV IV ONE (03:15)
[2018-10-26] MEDS: HEPARIN SOD (PORCINE) 5,000 UNIT/ML 1 ML SYRINGE SUBCUT SCH ×3 (06:11→21:09)
--- NOTE | 2018-10-26 06:34 | PDOC H&P ---
History of Present Illness Admission Date/PCP: 10/26/18 02:04 LESLY BRYAN MD Patient complains of: Dyspnea History of Present Illness: LEIF NUÑEZ is a 63 year old male who presented to the emergency room for the second time in the same day with a 1 day history of dyspnea. The patient was dyspneic and was also noted to be intoxicated and subsequently developed atrial fibrillation with rapid ventricular response which resolved with Cardizem bolus x1 and IV fluids. The patient gradually improved in his overall status becoming less dyspneic and much more alert over his course in the emergency room. At the time my evaluation patient is awake and alert but is uncooperative, nonresponsive to questions and non-participatory in his evaluation. Subsequ ently, he was hospitalized for further evaluation and treatment. Past Medical History Past Medical History: Past history, social history, family medical history and surgical history is obtained from available records as patient is nonresponsive to questions and not will decrease pain in his medical care despite his level of normal alertness and ability to communicate verbally with other staff members. 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 Takes ASA now, used to be on hypertensive medications, Hyperlipidema, Hypertension Pulmonary Medical History: Reports: Asthma, Chronic Obstructive Pulmonary Disease (COPD), Pneumonia Denies: Bronchitis EENT Medical History: Reports: None Neurological Medical History: Denies: Multiple Sclerosis, Seizures Endocrine Medical History: Denies: Diabetes Mellitus Type 1, Diabetes Mellitus Type 2, Hyperthyroidism, Hypothyroidism Renal/ Medical History: Denies: Chronic Kidney Disease, Nephrolithiasis Malignancy Medical History: Reports: None GI Medical History: Denies: Cirrhosis, Hepatitis Musculoskeltal Medical History: Reports: Arthritis - chronic spine disorder Denies: Gout Skin Medical History: Denies: Eczema, Psoriasis Psychiatric Medical History: Reports: Alcohol Dependency, Depression, Tobacco Dependency Traumatic Medical History: Reports: None Hematology: Denies: Anemia, Bleeding Tendencies Past Surgical History Past Surgical History: Past history, social history, family medical history and surgical history is obtained from available records as patient is nonresponsive to questions and not will decrease pain in his medical care despite his level of normal alertness and ability to communicate verbally with other staff members. Past Surgical History: Reports: Cardiac Catheterization Social History Information Source: Patient Lives with: Alone Smoking Status: Current Every Day Smoker Frequency of Alcohol Use: Heavy Hx Recreational Drug Use: No Drugs: None Hx Prescription Drug Abuse: Yes - Opiate and benzodiazepine Past Social History Note: Past history, social history, family medical history and surgical history is obtained from available records as patient is nonresponsive to questions and not will decrease pain in his medical care despite his level of normal alertness and ability to communicate verbally with other staff members. - Advance Directive Resuscitation Status: Do Not Resuscitate Surrogate healthcare decision maker:: His son Casimiro Family History Family History: Arthritis, CAD, COPD Family History: Past history, social history, family medical history and surgical history is obtained from available records as patient is nonresponsive to questions and not will decrease pain in his medical care despite his level of normal alertness and ability to communicate verbally with other staff members. Parental Family History Reviewed: Yes Children Family History Reviewed: No Sibling(s) Family History Reviewed.: Yes Medication/Allergy Home Medications: Albuterol Sulfate [Proair HFA Inhalation Aerosol 8.5 gm MDI] 2 puff IH Q4H PRN #1 mdi 03/02/18 Clopidogrel Bisulfate [Plavix 75 mg Tablet] 75 mg PO DAILY 05/07/18 Lisinopril 20 mg PO DAILY 05/07/18 Naproxen 500 mg PO BID 05/07/18 Rosuvastatin Calcium 20 mg PO DAILY 05/07/18 Tiotropium [place] [Spiriva] 2 puff IH DAILY 05/07/18 Albuterol Sulfate [Albuterol Sulfate 2.5mg/3 mL] 1 vial IH Q4 PRN #10 vial 05/19/18 Doxycycline Hyclate 100 mg PO BID #20 capsule 08/03/18 Prednisone [Deltasone 20 mg Tablet] 2 tab PO DAILY 5 Days tablet 08/03/18 Albuterol Sulfate [Proair Hfa Inhalation Aerosol 8.5 gm Mdi] 2 puff IH Q4 PRN #1 mdi 09/15/18 Chlordiazepoxide HCl [Librium 25 mg Capsule] 1 cap PO ASDIR #30 capsule 09/28/18 Prednisone [Deltasone 20 mg Tablet] 3 tab PO DAILY 5 Days tablet 10/10/18 Allergies/Adverse Reactions: No Known Allergies Allergy (Verified 08/31/18 07:27) Review of Systems ROS unobtainable: Other - Patient refused to participate in answering questions related to his healthcare. Physical Exam Vital Signs: Temp Pulse Resp BP Pulse Ox 17 106/61 98 10/26/18 02:10 10/26/18 02:10 10/26/18 02:10 Intake & Output 10/24/18 10/25/18 10/26/18 23:59 23:59 23:59 Intake Total 1100 1100 Output Total 450 Balance 1100 650 General appearance: PRESENT: no acute distress, other - Uncooperative. ABSENT: cooperative Head exam: PRESENT: atraumatic, normocephalic Eye exam: PRESENT: conjunctiva pink. ABSENT: scleral icterus Ear exam: PRESENT: normal external ear exam. ABSENT: bleeding, drainage Mouth exam: PRESENT: dry mucosa, neck supple Neck exam: ABSENT: thyromegaly, tracheal deviation Respiratory exam: PRESENT: decreased breath sounds - Mildly decreased breath sounds throughout all lung lerner consistent with mild to moderate COPD, prolonged expiratory phas - Minimally prolonged expiration phase in all lung lerner, symmetrical, unlabored, wheezes - Mild wheezing in all lung lerner Cardiovascular exam: PRESENT: RRR. ABSENT: clicks, gallop, rubs, tachycardia Pulses: PRESENT: normal radial pulses, normal dorsalis pedis pul Vascular exam: PRESENT: normal capillary refill. ABSENT: pallor GI/Abdominal exam: PRESENT: normal bowel sounds, soft Rectal exam: PRESENT: deferred Extremities exam: ABSENT: joint swelling, pedal edema Musculoskeletal exam: ABSENT: deformity, dislocation Neurological exam: PRESENT: CN II-XII grossly intact - 2 limited exam, other - Patient refuses to participate in evaluation Psychiatric exam: PRESENT: other - Patient refuses to participate in evaluation Skin exam: PRESENT: dry, intact, warm. ABSENT: jaundice, rash, urticaria Results Laboratory Results: 10/25/18 21:56 10/25/18 21:56 10/25/18 10/25/18 10/25/18 21:56 21:56 23:35 WBC 11.7 H RBC 4.21 L Hgb 12.3 L Hct 36.3 L MCV 86 MCH 29.3 MCHC 33.9 RDW 15.8 H Plt Count 262 Seg Neutrophils % 77.6 Lymphocytes % 11.4 L Monocytes % 10.8 Eosinophils % 0.0 Basophils % 0.2 Absolute Neutrophils 9.0 H Absolute Lymphocytes 1.3 Absolute Monocytes 1.3 Absolute Eosinophils 0.0 Absolute Basophils 0.0 VBG pH 7.18 L* VBG pCO2 78.8 H* VBG HCO3 28.7 VBG Base Excess -1.4 Sodium 123.5 L Potassium 4.7 Chloride 80 L Carbon Dioxide 32 H Anion Gap 12 BUN 8 Creatinine 0.46 L Est GFR ( Amer) > 60 Est GFR (Non-Af Amer) > 60 Glucose 92 Calcium 8.3 L 10/26/18 01:14 WBC RBC Hgb Hct MCV MCH MCHC RDW Plt Count Seg Neutrophils % Lymphocytes % Monocytes % Eosinophils % Basophils % Absolute Neutrophils Absolute Lymphocytes Absolute Monocytes Absolute Eosinophils Absolute Basophils VBG pH 7.21 L VBG pCO2 72.3 H* VBG HCO3 28.3 VBG Base Excess -1.2 Sodium Potassium Chloride Carbon Dioxide Anion Gap BUN Creatinine Est GFR ( Amer) Est GFR (Non-Af Amer) Glucose Calcium 10/25/18 21:56 Troponin I 0.013 Impressions: Chest X-Ray 10/25/18 21:11 IMPRESSION: No acute cardiopulmonary process. Fibrotic changes bilaterally copyright 2010 [employer]- All Rights Reserved Assessment & Plan - Diagnosis (1) Acute alcohol intoxication delirium with moderate or severe use disorder Is this a current diagnosis for this admission?: Yes Plan: Patient's initial blood alcohol was 200+. He was given IV fluids over several hour course in the emergency room. His intoxication and delirium have substantially improved since his initial presentation. He will be observed closely for any signs of alcohol withdrawal. (2) COPD exacerbation Is this a current diagnosis for this admission?: Yes Plan: Patient will be treated with an aggressive pulmonary toilet utilizing Xopenex, Atrovent, Pulmicort and albuterol nebulizers. He will also receive intravenous Solu-Medrol and additional supportive and symptomatic cares as required. (3) Acute and chronic respiratory failure with hypoxia Is this a current diagnosis for this admission?: Yes Plan: Patient was initially treated with BiPAP in the emergency room however his no longer requiring BiPAP therapy. He will be given supplemental oxygen as needed throughout his hospital course with hopeful weaning to room air as soon as possible. (4) Paroxysmal atrial fibrillation with rapid ventricular response Is this a current diagnosis for this admission?: Yes Plan: Patient's atrial fibrillation has resolved after administration of Cardizem via bolus dosage in the emergency room. A discussion with the patient, at some point in time when he is willing to participate in his medical care, as regarding ongoing treatment of his paroxysmal atrial fibrillation including a discussion of anticoagulant therapy should be undertaken. (5) Tobacco use disorder, severe, dependence Is this a current diagnosis for this admission?: Yes Plan: I have recommended patient that he discontinue use of cigarettes. A nicotine patch is available to the patient at his request. - Time Time Spent: 30 to 50 Minutes Critical Time spent with patient: Less than 15 minutes Smoking Cessation Education: 3 to 10 minutes Medications reviewed and adjusted accordingly: No Anticipated discharge: Home - Inpatient Certification Based on my medical assessment, after consideration of the patient's comorbidities, presenting symptoms, or acuity I expect that the services needed warrant INPATIENT care.: No I certify that my determination is in accordance with my understanding of Medicare's requirements for reasonable and necessary INPATIENT services [42 CFR 412.3e].: No
[2018-10-26] MEDS: BUDESONIDE NEB 0.5 MG/2 ML AMPUL NEB SCH (08:28)
[2018-10-26] MEDS: IPRATROPIUM BROMIDE 0.02% NEB 0.5 MG/2.5 ML AMPUL NEB SCH ×2 (08:28→15:58)
[2018-10-26] MEDS: LEVALBUTEROL HCL NEB 1.25 MG/3 ML AMPUL NEB SCH ×2 (08:28→15:58)
[2018-10-26] MEDS ORDERED: METHYLPREDNISOLONE INJ 40 MG/1 ML SDV IV SCH (09:00)
[2018-10-26] MEDS ORDERED: LORAZEPAM INJ 2 MG/1 ML VIAL IV PRN (09:31)
[2018-10-26] MEDS ORDERED: THIAMINE HCL 500 MG in NORMAL SALINE 250 ML IV SCH (10:00)
[2018-10-26] MEDS ORDERED: NORMAL SALINE 1000 ML 1,000 ML with POTASSIUM CHLORIDE 10 MEQ, MAGNESIUM SULFATE 8 MEQ,... IV ONE ×5 (10:17)
[2018-10-26] MEDS: DOCUSATE SODIUM 100 MG CAPSULE PO SCH ×2 (10:39→17:02)
[2018-10-26] MEDS: FAMOTIDINE 20 MG TABLET PO SCH ×2 (10:39→21:09)
[2018-10-26] MEDS: THIAMINE HCL 100 MG, FOLIC ACID 1 MG in NORMAL SALINE 250 ML IV SCH (11:55)
[2018-10-26 12:08] LABS: BLOOD UREA NITROGEN 8 mg/dL (7-20); CALCIUM 8.3 mg/dL (8.4-10.2); GLUCOSE 128 mg/dL (75-110); PHOSPHORUS 4.2 mg/dL (2.5-4.5); POTASSIUM 5.5 mmol/L (3.6-5.0)
[2018-10-26 12:14] LABS: ANION GAP 5 (5-19); CARBON DIOXIDE 39 mmol/L (22-30); CHLORIDE 88 mmol/L (98-107); SODIUM 131.5 mmol/L (137-145)
[2018-10-26 13:10] LABS: ARTERIAL BLOOD BASE EXCESS 10.5 mmol/L; ARTERIAL BLOOD H2CO3 1.83 mmol/L (1.05-1.35); ARTERIAL BLOOD HCO3 37.3 mmol/L (20-24); ARTERIAL BLOOD O2 SATURATION 94.4 % (94-98); ARTERIAL BLOOD PCO2 60.8 mmHg (35-45); ARTERIAL BLOOD PH 7.41 (7.35-7.45); ARTERIAL BLOOD PO2 73.4 mmHg (80-100); ARTERIAL BLOOD TOTAL CO2 39.2 mmol/L (23-27)
[2018-10-26 13:14] LABS: ARTERIAL BLOOD FIO2 30%
[2018-10-26] MEDS ORDERED: LORAZEPAM INJ 2 MG/1 ML VIAL IV ONE (15:00)
[2018-10-26] MEDS: METHYLPREDNISOLONE INJ 40 MG/1 ML SDV IV SCH ×2 (15:19→21:08)
[2018-10-26] MEDS: LORAZEPAM INJ 2 MG/1 ML VIAL IV PRN ×3 (15:45→23:52)
[2018-10-26] MEDS ORDERED: DIAZEPAM 5 MG TABLET PO ONE (17:00)
[2018-10-26] MEDS: DIAZEPAM 5 MG TABLET PO SCH (21:09)
--- NOTE | 2018-10-26 23:59 | EKG REPORT ---
SEVERITY:- ABNORMAL ECG - ATRIAL FIBRILLATION, V-RATE 73-126 : Confirmed by: Renee Gill 26-Oct-2018 23:57:40
[2018-10-27] MEDS: IPRATROPIUM BROMIDE 0.02% NEB 0.5 MG/2.5 ML AMPUL NEB SCH ×2 (00:23→10:07)
[2018-10-27] MEDS: LEVALBUTEROL HCL NEB 1.25 MG/3 ML AMPUL NEB SCH ×2 (00:23→10:07)
[2018-10-27] MEDS: BUDESONIDE NEB 0.5 MG/2 ML AMPUL NEB SCH ×2 (00:23→10:08)
[2018-10-27] MEDS: LORAZEPAM INJ 2 MG/1 ML VIAL IV PRN ×3 (04:04→11:07)
[2018-10-27 05:01] LABS: HEMOGLOBIN 11.8 g/dL (13.5-17.0); MEAN CORPUSCULAR HEMOGLOBIN 29.1 pg (27.0-33.4); MEAN CORPUSCULAR HGB CONC 33.8 g/dL (32.0-36.0); MEAN CORPUSCULAR VOLUME 86 fl (80-97); PLATELET COUNT 186 10^3/uL (150-450); RED BLOOD COUNT 4.06 10^6/uL (4.35-5.55); WHITE BLOOD COUNT 7.9 10^3/uL (4.0-10.5)
[2018-10-27] MEDS: HEPARIN SOD (PORCINE) 5,000 UNIT/ML 1 ML SYRINGE SUBCUT SCH (05:36)
[2018-10-27] MEDS: DIAZEPAM 5 MG TABLET PO SCH (05:36)
[2018-10-27 05:49] LABS: ANION GAP 5 (5-19); BLOOD UREA NITROGEN 11 mg/dL (7-20); CALCIUM 8.6 mg/dL (8.4-10.2); CARBON DIOXIDE 39 mmol/L (22-30); CHLORIDE 87 mmol/L (98-107); GLUCOSE 132 mg/dL (75-110); PHOSPHORUS 3.3 mg/dL (2.5-4.5); POTASSIUM 4.9 mmol/L (3.6-5.0); SODIUM 131.3 mmol/L (137-145)
--- NOTE | 2018-10-27 08:03 | Physician Advisory Note ---
Physician Advisor ProgressNote .: [facility], I have reviewed the medical record for this patient. Physician Advisor Statement: 1. Please continue to document, through notes to [facility], the findings that support the dx Acute Hypoxemic & Hypercapneic Resp Failure (O2 sat 85% RA, Ac Resp Acidosis by VBGs, assoc'd w/increasing somnolence, + need for Bipap + O2). 2. "Acute hyponatremia, suspect due to EtOHism" - please document if you agree w/this dx from ED dr, being tx'd w/IVF & monitored - or is it r/o'd? 3. Principal Dx: please list as Dx #1 in each note the reason pt needed hospitalization. Status: Medicare pt, began care 2/9 PM, still needing O2 & Bipap, requiring 2nd [place] in hospital - approp for conversion to Inpt status. Thanks! CK
[2018-10-27] MEDS ORDERED: MIDAZOLAM 2 MG/2 ML INJ IV ONE (09:00)
[2018-10-27] MEDS: DOCUSATE SODIUM 100 MG CAPSULE PO SCH (10:14)
[2018-10-27] MEDS: FAMOTIDINE 20 MG TABLET PO SCH (10:14)
[2018-10-27] MEDS: THIAMINE HCL 100 MG, FOLIC ACID 1 MG in NORMAL SALINE 250 ML IV SCH (11:07)
--- NOTE | 2018-10-27 11:43 | Progress Note ---
Provider Note Provider Note: LEIF NUÑEZ is a 63 year old male who presented to the emergency room for the second time in the same day with a 1 day history of dyspnea. PMH includes COPD, asthma, CAD, [place] x3, EtOH (patient admits to drinking 24 beers per day). Admit to hospitalist service for acute respiratory failure requiring BIPAP. The patient was seen this morning on rounds. He is resting in bed. He appears very anxious, states he feels that he is going through withdrawal. The patient is noted to be ripping off his cardiac leads. Yelling at nursing staff. The patient is oriented to person time and place. He does not remember how or why he was brought to the hospital. Agree with mold swabber's plan of care: 1. Acute hypoxic/hypercapnic respiratory failure: BiPAP. Scheduled and as needed nebulizers. IV steroids. Pulmicort. 2. ETOH abuse: chronic ETOH use. Well known to medical staff at [facility]. BAL > 200 upon arrival. PRN Ativan IV. Scheduled PO Valium. Monitor closely for s/s of withdrawal. Daily thiamine and folate. 3. Paroxysmal Atrial fibrillation: Converted to NSR in ED when given IV cardizem. Continue p.o. Cardizem. Currently rate controlled.
[2018-10-27 12:06] VITALS: BP 129/104
--- NOTE | 2018-10-27 12:21 | PDOC DISCHARGE SUMMARY ---
General - Admit/Disc Date/PCP Admission Date/Primary Care Provider: 10/26/18 02:04 LESLY BRYAN MD Discharge Date: 10/27/18 - Discharge Diagnosis (1) COPD (chronic obstructive pulmonary disease) Is this a current diagnosis for this admission?: Yes (2) Alcohol intoxication Is this a current diagnosis for this admission?: Yes - Additional Information Resuscitation Status: Do Not Resuscitate Home Medications: Clopidogrel Bisulfate [Plavix 75 mg Tablet] 75 mg PO DAILY 05/07/18 Lisinopril 20 mg PO DAILY 05/07/18 Naproxen 500 mg PO BID 05/07/18 Rosuvastatin Calcium 20 mg PO DAILY 05/07/18 Chlordiazepoxide HCl [Librium 25 mg Capsule] 1 cap PO ASDIR #30 capsule 09/28/18 Albuterol Sulfate [Albuterol Sulfate 2.5mg/3 mL] 1 vial IH Q8 10/26/18 Budesonide/Formoterol Fumarate [Symbicort Hfa 160-4.5 Mcg Inhaler 6 gm] 2 puff IH Q12 10/26/18 Gabapentin [Neurontin 100 mg Capsule] 100 mg PO QHS 10/26/18 Tiotropium [place] [Spiriva Respimat] 2 puff IH DAILY 10/26/18 History of Present Illness History of Present Illness: LEIF MICHAELS is a 63 year old male who presented to the emergency room for the second time in the same day with a 1 day history of dyspnea. The patient was dyspneic and was also noted to be intoxicated and subsequently developed atrial fibrillation with rapid ventricular response which resolved with Cardizem bolus x1 and IV fluids. The patient gradually improved in his overall status becoming less dyspneic and much more alert over his course in the emergency room. At the time my evaluation patient is awake and alert but is uncooperative, nonresponsive to questions and non-participatory in his evaluation. Subsequentl y, he was hospitalized for further evaluation and treatment. Hospital Course Hospital Course: THIS PATIENT LEFT AMA. LEIF MICHAELS is a 63 year old male who presented to the emergency room for the second time in the same day with a 1 day history of dyspnea. PMH includes COPD, asthma, CAD, [place] x3, EtOH (patient admits to drinking 24 beers per day). His BAL upon arrival was > 200. The patient's was noted to be in AFIB while in the ED. He was given cardizem IV and converted to NSR. Admitted to hospitalist service for acute respiratory failure requiring BIPAP, paroxysmal AFIB and ETOH intoxication. Mr. Michaels was treated for his paroxysmal AFIB with IV cardizem and converted to NSR. He was continued on PO cardizem. Additionally, his dyspnea was treated with BIPAP, scheduled and PRN nebulizers (which he often refused), and IV steroids. Unfortunately, Mr. Michaels is a chronic alcoholic. He admits to drinking approximately 24 beers per day. Once the patient was transferred from the ER to , he began yelling at the nursing staff, screaming "I am going through withdrawal." He was treated with PRN IV Ativan and scheduled p.o. Valium. Additionally, he received daily thiamine and folate infusions. He oftentimes ripped off his BiPAP mask. When nursing staff attempted to place nasal cannula, the patient would remove that too. The patient was alert and oriented, although he could not remember how or why he was in the hospital due to his high level of intoxication at the time of admission. He repeatedly told nursing staff that he wanted to go home. Made multiple attempts to get out of bed and walk out of the hospital. This provider explained to the patient his current condition and his need for hospitalization. This provider also explained the risks of leaving the hospital before medically ready. Despite this conversation, the patient still adamantly requested to go home. The patient signed out AMA. He was transported down to the lobby of the hospital via wheelchair. He was provided a taxi voucher by nursing rug cleaning supervisor. Physical Exam Vital Signs: Temp Pulse Resp BP Pulse Ox 97.3 F 76 18 129/104 H 99 10/27/18 11:36 10/27/18 11:36 10/27/18 11:36 10/27/18 11:36 10/27/18 11:36 Pulse Oximeter Continuous Start: 10/26/18 10:18 Freq: RTQ4 Status: Active Protocol: Document 10/27/18 10:09 LUKAS (Rec: 10/27/18 10:11 [email or web address] [id number]) Pulse Oximetry Assessment Equipment Usage Equipment Standby Continuous SpO2 Machine # 13 Intake & Output 10/26/18 10/27/18 10/28/18 06:59 06:59 06:59 Intake Total 2200 1115.2 Output Total 1450 2650 Balance 750 -1534.8 Weight 63 kg 61.5 kg Results Laboratory Results: 10/27/18 04:07 10/27/18 04:07 10/26/18 10/26/18 10/27/18 11:15 12:50 04:07 WBC 7.9 RBC 4.06 L Hgb 11.8 L Hct 35.0 L MCV 86 MCH 29.1 MCHC 33.8 RDW 16.0 H Plt Count 186 Carbonic Acid 1.83 H HCO3/H2CO3 Ratio 20:1 ABG pH 7.41 ABG pCO2 60.8 H ABG pO2 73.4 L ABG HCO3 37.3 H ABG O2 Saturation 94.4 ABG Base Excess 10.5 FiO2 30% Sodium 131.5 L Potassium 5.5 H Chloride 88 L Carbon Dioxide 39 H Anion Gap 5 BUN 8 Creatinine 0.55 Est GFR ( Amer) > 60 Est GFR (Non-Af Amer) > 60 Glucose 128 H Calcium 8.3 L Phosphorus 4.2 Magnesium 2.1 10/27/18 04:07 WBC RBC Hgb Hct MCV MCH MCHC RDW Plt Count Carbonic Acid HCO3/H2CO3 Ratio ABG pH ABG pCO2 ABG pO2 ABG HCO3 ABG O2 Saturation ABG Base Excess FiO2 Sodium 131.3 L Potassium 4.9 Chloride 87 L Carbon Dioxide 39 H Anion Gap 5 BUN 11 Creatinine 0.47 L Est GFR ( Amer) > 60 Est GFR (Non-Af Amer) > 60 Glucose 132 H Calcium 8.6 Phosphorus 3.3 Magnesium 2.3 10/25/18 21:56 Troponin I 0.013 Impressions: Chest X-Ray 10/25/18 21:11 IMPRESSION: No acute cardiopulmonary process. Fibrotic changes bilaterally copyright 2011 [employer]- All Rights Reserved Status: Imported from [employer] Qualifiers - * PATIENT BEING DISCHARGED WITH ANY OF THE FOLLOWING DIAGNOSIS: No Plan Time Spent: Greater than 30 Minutes
== END 2018-10-27 12:14 | disposition left against medical advice (07) ==
LOC: ER 21:01 → EH 10-26 02:04 → 4W 10-26 03:45
PROVIDERS: ADMIT Emergency Medicine; ATTEND Emergency Medicine
PROC: HZ31ZZZ Individual Counseling for Substance Abuse Treatment, Behavioral (ICD-10-PCS; principal; 2018-10-26)
DX: J44.1 Chronic obstructive pulmonary disease with (acute) exacerbation (principal); F10.221 Alcohol dependence with intoxication delirium; I48.0 Paroxysmal atrial fibrillation; I25.10 Atherosclerotic heart disease of native coronary artery without angina pectoris; J96.21 Acute and chronic respiratory failure with hypoxia; I10 Essential (primary) hypertension; E78.5 Hyperlipidemia, unspecified; F17.210 Nicotine dependence, cigarettes, uncomplicated; E87.1 Hypo-osmolality and hyponatremia; I95.9 Hypotension, unspecified; Z66 Do not resuscitate; I25.2 Old myocardial infarction; Z79.899 Other long term (current) drug therapy; Z79.02 Long term (current) use of antithrombotics/antiplatelets; Z53.21 Procedure and treatment not carried out due to patient leaving prior to being seen by health care provider; Z95.5 Presence of coronary angioplasty implant and graft; Z79.82 Long term (current) use of aspirin; Z82.49 Family history of ischemic heart disease and other diseases of the circulatory system; Y90.7 Blood alcohol level of 200-239 mg/100 ml
CPT/HCPCS: 93005; 36415 ×3; 80307; 82803 ×2; 83735 ×2; 84100 ×2; 85025; 85027; 80048 ×3; 84484; 71045; 93010; 36600; 94660 ×3; 94640 ×3; 94762 ×2; 99406; J2250; J1644 ×2; A9270 ×6; J3490 ×9; J2920; J2060 ×2; J3475; J3411 ×2; J7030; J7050 ×2; J7120 ×2; J7620

== ENCOUNTER 2018-10-29 15:31 | Inpatient (IN) | payer OTHER, MEDICARE, MEDICAID ==
[2018-10-29] MEDS ORDERED: ASPIRIN 81 MG TABLET, CHEWABLE PO ONE (15:36)
[2018-10-29] MEDS ORDERED: MAGNESIUM SULFATE/D5W 1 GM/100 ML RTUPB IV ONE ×2 (16:03)
[2018-10-29] MEDS ORDERED: IPRATROPIUM/ALBUTEROL 0.5-2.5 MG/3 ML AMPUL NEB ONE (16:03)
--- NOTE | 2018-10-29 16:04 | ER Document Report ---
ED General - General Chief Complaint: Chest Pain Stated Complaint: CHEST PAINS Time Seen by Provider: 10/29/18 15:56 Primary Care Provider: LESLY BRYAN MD [Primary Care Provider] - Follow up as needed TRAVEL OUTSIDE OF THE [place] IN LAST 30 DAYS: No - HPI Notes: Patient is a 63-year-old male who is well-known to the emergency department for eloping and leaving AMA who presents with a history of CAD (2 stents placed), HTN, COPD/Asthma, ETOH abuse, Tobacco abuse from shelter complaining of substernal chest pain that is across his entire chest in association with dry nonproductive cough and wheezing that began a couple days ago. According to our records, patient was admitted a few days ago and left AMA. Patient states that he was arrested because he was sleeping in a car wash. Patient states that he has had symptoms like this previously, but this time the chest pain is worse. He is accompanied by who states that he heard him wheezing audibly in his car on his way here. Denies drug allergies. No other concerns or complaints. Denies any headache, fever, neck pain, URI, sore throat, palpitations, syncope, abdominal pain, nausea/vomiting/diarrhea, urinary retention, dysuria, hematuria, or rash. 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 Takes ASA now, used to be on hypertensive medications, Hx Hypercholesterolemia, Hx Hypertension Pulmonary Medical History: Reports: Hx Asthma, Hx COPD, Hx Pneumonia Denies: Hx Bronchitis Neurological Medical History: Denies: Hx Cerebrovascular Accident, Hx Seizures Endocrine Medical History: Denies: Hx Diabetes Mellitus Type 1, Hx Diabetes Mellitus Type 2, Hx Hyperthyroidism, Hx Hypothyroidism Renal/ Medical History: Denies: Hx Peritoneal Dialysis GI Medical History: Denies: Hx Cirrhosis, Hx Hepatitis Musculoskeletal Medical History: Reports Hx Arthritis - chronic spine disorder, Denies Hx Gout, Reports Hx Musculoskeletal Deformity, Reports Hx Musculoskeletal Trauma Skin Medical History: Denies Hx Eczema, Denies Hx Psoriasis Psychiatric Medical History: Reports: Hx Borderline Personality Disorder, Hx Depression Traumatic Medical History: Reports: Hx Fractures - Left rib fractures with pneumothorax requiring chest tube on 05/23/2016 Infectious Medical History: Denies: Hx Hepatitis Past Surgical History: Reports: Hx Cardiac Catheterization - Immunizations Immunizations up to date: Yes Hx Diphtheria, Pertussis, Tetanus Vaccination: Yes Hx Pneumococcal Vaccination: 02/22/13 Review of Systems - Review of Systems -: Yes All other systems reviewed and negative Physical Exam - Vital signs Vitals: Temp Pulse Ox 98.2 F 90 L 10/29/18 15:40 10/29/18 15:40 - Notes Notes: PHYSICAL EXAMINATION: GENERAL: Well-appearing, well-nourished and in no acute distress. HEAD: Atraumatic, normocephalic. EYES: Pupils equal round and reactive to light, extraocular movements intact, sclera anicteric, conjunctiva are normal. ENT: Nares patent and without discharge. oropharynx clear without exudates. No tonsilar hypertrophy or erythema. Moist mucous membranes. NECK: Normal range of motion, supple without lymphadenopathy LUNGS: Diminished b/l. HEART: Regular rate and rhythm without murmurs, rubs, gallops. ABDOMEN: Soft, nontender, nondistended abdomen. No guarding, no rebound. No masses appreciated. Normal bowel sounds present. No CVA tenderness bilaterally. Musculoskeletal: FROM to passive/active. Strength 5+/5. Sylvia neg. No asymmetry to LE's. Extremities: No cyanosis, clubbing, or edema b/l. Peripheral pulses 2+. Capillary refill less than 3 seconds. NEUROLOGICAL: Normal speech, normal gait. PSYCH: Normal mood, normal affect. SKIN: Warm, Dry, normal turgor, no rashes or lesions noted. Course - Re-evaluation Re-evalutation: 10/29/18 17:55 Patient is an afebrile, well-hydrated 63-year-old male who presents to the ED with hypoxia, COPD exac, and atypical chest pain. Pt has been hypoxic at RA in the mid to high 80's. He did leave AMA a couple days ago for the same complaint. He received solumedrol, breathing treatments, and magnesium. His O2 maintains around 94% on 2L via NC. RR has remained in the 20's but is not labored. Patient is nontoxic-appearing and is tolerating p.o. without any difficulties. See lab results. CXR unremarkable. Pt [facility] be admitted to [facility] under care of our hospitalist, Dr. Villalobos. - Vital Signs Vital signs: Temp Pulse Resp BP Pulse Ox 98.2 F 93 25 H 111/67 87 L 10/29/18 15:40 10/29/18 17:42 10/29/18 17:42 10/29/18 17:01 10/29/18 17:42 - Laboratory Result Diagrams: 10/29/18 15:47 10/29/18 15:47 Laboratory results interpreted by me: 10/29/18 10/29/18 10/29/18 15:47 15:47 16:45 Hgb 13.3 L RDW 15.8 H VBG pH 7.46 H Sodium 130.2 L Chloride 88 L Carbon Dioxide 36 H Creatinine 0.48 L Creatine Kinase 47 L Discharge - Discharge Clinical Impression: Hypoxia, COPD with exacerbation, Atypical chest pain Condition: Stable Disposition: ADMITTED INPATIENT Admitting Provider: Hospitalist - Dr. Villalobos Unit Admitted: Telemetry Referrals: LESLY BRYAN MD [Primary Care Provider] - Follow up as needed
[2018-10-29 16:15] LABS: HEMATOCRIT 38.6 % (37.9-51.0); HEMOGLOBIN 13.3 g/dL (13.5-17.0); MEAN CORPUSCULAR HEMOGLOBIN 29.4 pg (27.0-33.4); MEAN CORPUSCULAR HGB CONC 34.4 g/dL (32.0-36.0); MEAN CORPUSCULAR VOLUME 86 fl (80-97); PLATELET COUNT 228 10^3/uL (150-450); RED BLOOD COUNT 4.52 10^6/uL (4.35-5.55); RED CELL DISTRIBUTION WIDTH 15.8 % (11.5-14.0); WHITE BLOOD COUNT 5.9 10^3/uL (4.0-10.5)
[2018-10-29 16:27] LABS: ALANINE AMINOTRANSFERASE 35 U/L (21-72); ALBUMIN 3.6 g/dL (3.5-5.0); ALKALINE PHOSPHATASE 86 U/L (38-126); ANION GAP 6 (5-19); ASPARTATE AMINO TRANSFERASE 39 U/L (17-59); BILIRUBIN,DIRECT 0.3 mg/dL (0.0-0.4); BILIRUBIN,TOTAL 0.5 mg/dL (0.2-1.3); BLOOD UREA NITROGEN 10 mg/dL (7-20); CALCIUM 8.7 mg/dL (8.4-10.2); CARBON DIOXIDE 36 mmol/L (22-30); CHLORIDE 88 mmol/L (98-107); CREATINE KINASE 47 U/L (55-170); GLUCOSE 93 mg/dL (75-110); POTASSIUM 4.5 mmol/L (3.6-5.0); SODIUM 130.2 mmol/L (137-145); TOTAL PROTEIN 6.3 g/dL (6.3-8.2)
--- NOTE | 2018-10-29 16:36 | RADIOLOGY REPORT (SQ) ---
EXAM DESCRIPTION: CHEST SINGLE VIEW COMPLETED DATE/TIME: 10/29/2018 4:16 pm REASON FOR STUDY: bed 1 cp COMPARISON: CHEST FILMS 10/25/2018, 10/10/2018, 08/03/2018 EXAM PARAMETERS: NUMBER OF VIEWS: One view. TECHNIQUE: Single frontal radiographic view of the chest acquired. RADIATION DOSE: NA LIMITATIONS: None. FINDINGS: LUNGS AND PLEURA: Low lung volumes. Stable pulmonary fibrosis at the bases. No acute inf iltrates. No pleural effusion or pneumothorax. MEDIASTINUM AND HILAR STRUCTURES: No masses. Contour normal. HEART AND VASCULAR STRUCTURES: Heart normal in size. Normal vasculature. BONES: Old bilateral healed rib fractures HARDWARE: None in the chest. OTHER: No other significant finding. IMPRESSION: No acute findings TECHNICAL DOCUMENTATION: JOB ID: [id number] [employer]- All Rights Reserved Reading location - IP/workstation name: [email or web address]
[2018-10-29 16:37] LABS: CREATINE KINASE MB 2.32 ng/mL (<4.55)
[2018-10-29 16:39] LABS: TROPONIN I < 0.012 ng/mL
[2018-10-29 16:46] LABS: ABSOLUTE LYMPHOCYTES# (MANUAL) 0.9 10^3/uL (0.5-4.7); ABSOLUTE MONOCYTES # (MANUAL) 0.8 10^3/uL (0.1-1.4); ABSOLUTE NEUTROPHILS# (MANUAL) 4.1 10^3/uL (1.7-8.2); BASOPHILS % (MANUAL) 1 % (0-2); EOSINOPHILS % (MANUAL) 0 % (0-6); LYMPHOCYTES % (MANUAL) 16 % (13-45); MONOCYTES % (MANUAL) 13 % (3-13); PLATELET COMMENT ADEQUATE; SEGMENTED NEUTROPHILS % (MAN) 70 % (42-78); TOTAL CELLS COUNTED 100; TOXIC GRANULATION 1+; TOXIC VACUOLATION PRESENT
[2018-10-29 17:05] LABS: VENOUS BLOOD HCO3 31.8 mmol/L (20-32); VENOUS BLOOD PCO2 45.5 mmHg (35-63); VENOUS BLOOD PH 7.46 (7.30-7.42)
[2018-10-29] MEDS ORDERED: ALBUTEROL SULFATE 0.083% NEB 2.5 MG/3 ML AMPUL NEB ONE (17:43)
[2018-10-29] MEDS ORDERED: METHYLPREDNISOLONE INJ 125 MG/2 ML SDV IV ONE (17:50)
[2018-10-29] MEDS ORDERED: ONDANSETRON HCL INJ/PF 4 MG/2 ML SDV IV PRN (18:16)
[2018-10-29] MEDS ORDERED: PROMETHAZINE HCL INJ 25 MG/1 ML VIAL IV PRN (18:16)
[2018-10-29] MEDS ORDERED: LEVALBUTEROL HCL NEB 1.25 MG/3 ML AMPUL NEB PRN (18:16)
[2018-10-29] MEDS ORDERED: DIAZEPAM INJ 10 MG/2 ML DISP.SYRIN IV PRN (18:24)
[2018-10-29] MEDS ORDERED: MORPHINE SULFATE 10 MG/ML INJ IV PRN (18:29)
--- NOTE | 2018-10-29 18:40 | PDOC H&P ---
History of Present Illness Admission Date/PCP: 10/29/18 18:08 LESLY BRYAN MD Patient complains of: Shortness of breath and chest pains History of Present Illness: LEIF NUÑEZ is a 63 year old male with history of COPD, coronary artery disease status post stent placement, chronic smoker, chronic alcohol user, hypertension, hyperlipidemia, anxiety, depression came [facility] with complaints of chest pain across the chest associated with a dry cough and wheezing for the last couple of days. Is also admitting to drinking heavy alcohol 24 cans/day until last night. admitting smoking feed and cigarettes according to the patient pain was a pressure-like pain 10 x 10 associated with shortness of breath denies any nausea denies any vomiting denies any sweating denies any association with activity. As per the patient pain was localized. He is also complaining of cough or dry cough associated with cold and chills. Requesting anxiety medications. In the emergency room workup was done chest x-ray was negative EKG shows sinus tachycardia pulse ox was 87% on room air, VBG was normal medical consult was called for admission. Went to talk to the patient in the emergency room he confirmed to me that he is having the chest pains shortness of breath dry cough for the last few days and drinking heavy for the last couple of months. 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 Takes ASA now, used to be on hypertensive medications, Hyperlipidema, Hypertension Pulmonary Medical History: Reports: Asthma, Chronic Obstructive Pulmonary Disease (COPD), Pneumonia Denies: Bronchitis Neurological Medical History: Denies: Seizures Endocrine Medical History: Denies: Diabetes Mellitus Type 1, Diabetes Mellitus Type 2, Hyperthyroidism, Hypothyroidism GI Medical History: Denies: Cirrhosis, Hepatitis Musculoskeltal Medical History: Reports: Arthritis - chronic spine disorder Denies: Gout Skin Medical History: Denies: Eczema, Psoriasis Psychiatric Medical History: Reports: Depression Hematology: Denies: Anemia, Bleeding Tendencies Past Surgical History Past Surgical History: Reports: Cardiac Catheterization, Other - Abdominal hernia repair Social History Information Source: Patient Smoking Status: Current Every Day Smoker Frequency of Alcohol Use: Heavy Hx Recreational Drug Use: No Drugs: None Hx Prescription Drug Abuse: Yes - Opiate and benzodiazepine - Advance Directive Resuscitation Status: Full Code Family History Family History: Arthritis, CAD, COPD Parental Family History Reviewed: Yes - Father has heart disease. Children Family History Reviewed: Yes Sibling(s) Family History Reviewed.: Yes Medication/Allergy Home Medications: Clopidogrel Bisulfate [Plavix 75 mg Tablet] 75 mg PO DAILY 05/07/18 Lisinopril 20 mg PO DAILY 05/07/18 Naproxen 500 mg PO BID 05/07/18 Rosuvastatin Calcium 20 mg PO DAILY 05/07/18 Chlordiazepoxide HCl [Librium 25 mg Capsule] 1 cap PO ASDIR #30 capsule 09/28/18 Albuterol Sulfate [Albuterol Sulfate 2.5mg/3 mL] 1 vial IH Q8 10/26/18 Budesonide/Formoterol Fumarate [Symbicort Hfa 160-4.5 Mcg Inhaler 6 gm] 2 puff IH Q12 10/26/18 Gabapentin [Neurontin 100 mg Capsule] 100 mg PO QHS 10/26/18 Tiotropium [place] [Spiriva Respimat] 2 puff IH DAILY 10/26/18 Allergies/Adverse Reactions: No Known Allergies Allergy (Verified 08/31/18 07:27) Review of Systems Constitutional: ABSENT: chills, fatigue, fever(s), headache(s), weakness Eyes: ABSENT: visual disturbances Ears: ABSENT: hearing changes Nose, Mouth, and Throat: ABSENT: sore throat Cardiovascular: PRESENT: chest pain. ABSENT: dyspnea on exertion Respiratory: PRESENT: cough, dyspnea Gastrointestinal: ABSENT: constipation, diarrhea, dysphagia, heartburn, hematemesis, hematochezia, nausea, vomiting Musculoskeletal: ABSENT: joint swelling Neurological: ABSENT: abnormal gait, abnormal speech, confusion, dizziness, focal weakness, syncope Psychiatric: PRESENT: anxiety Physical Exam Vital Signs: Temp Pulse Resp BP Pulse Ox 98.2 F 93 23 H 150/65 H 95 10/29/18 15:40 10/29/18 17:42 10/29/18 18:01 10/29/18 18:01 10/29/18 18:01 Intake & Output 10/28/18 10/29/18 10/30/18 06:59 06:59 06:59 Intake Total 200 Balance 200 Weight 57.2 kg Head exam: PRESENT: atraumatic Eye exam: PRESENT: PERRLA Mouth exam: PRESENT: dry mucosa Neck exam: ABSENT: carotid bruit, JVD, lymphadenopathy, thyromegaly Respiratory exam: PRESENT: decreased breath sounds, wheezes Cardiovascular exam: PRESENT: tachycardia GI/Abdominal exam: PRESENT: normal bowel sounds, soft. ABSENT: distended, guarding, mass, organolmegaly, rebound, tenderness Extremities exam: PRESENT: full ROM. ABSENT: calf tenderness, clubbing, pedal edema Neurological exam: PRESENT: alert, awake, oriented to person, oriented to place, oriented to time, oriented to situation, CN II-XII grossly intact. ABSENT: motor sensory deficit Psychiatric exam: PRESENT: appropriate affect, normal mood. ABSENT: homicidal ideation, suicidal ideation Results Laboratory Results: 10/29/18 15:47 10/29/18 15:47 10/29/18 10/29/18 10/29/18 15:47 15:47 16:45 WBC 5.9 RBC 4.52 Hgb 13.3 L Hct 38.6 MCV 86 MCH 29.4 MCHC 34.4 RDW 15.8 H Plt Count 228 Seg Neutrophils % Not Reportable Lymphocytes % Not Reportable Monocytes % Not Reportable Eosinophils % Not Reportable Basophils % Not Reportable Absolute Neutrophils Not Reportable Absolute Lymphocytes Not Reportable Absolute Monocytes Not Reportable Absolute Eosinophils Not Reportable Absolute Basophils Not Reportable VBG pH 7.46 H VBG pCO2 45.5 VBG HCO3 31.8 VBG Base Excess 7.0 Sodium 130.2 L Potassium 4.5 Chloride 88 L Carbon Dioxide 36 H Anion Gap 6 BUN 10 Creatinine 0.48 L Est GFR ( Amer) > 60 Est GFR (Non-Af Amer) > 60 Glucose 93 Calcium 8.7 Total Bilirubin 0.5 AST 39 ALT 35 Alkaline Phosphatase 86 Total Protein 6.3 Albumin 3.6 10/29/18 10/29/18 15:47 15:47 Creatine Kinase 47 L CK-MB (CK-2) 2.32 Troponin I < 0.012 Impressions: Chest X-Ray 10/29/18 15:37 IMPRESSION: No acute findings Assessment & Plan - Diagnosis (1) COPD with acute exacerbation Is this a current diagnosis for this admission?: Yes Plan: 10/29/2018 patient has history of COPD secondary to chronic smoking came to the emergency room with chest pain and shortness of breath pulse ox on room air 87%. Plan is to admit him and telemetry as inpatient. Started on Levaquin-500 mg IV daily, ipratropium and Xopenex nebulizations every 6 as needed, is on 2 L nasal cannula was started. DVT prophylaxis and GI prophylaxis was requested. (2) Atypical chest pain Is this a current diagnosis for this admission?: Yes Plan: 10/29/2018 patient came in with a particular chest pain EKG was sinus tachycardia cardiac enzymes are negative. Plan is to do the serial cardiac enzymes x3, EKG tomorrow. Started on aspirin 325 mg p.o. daily continued Plavix 75 mg p.o. daily and started him on Lovenox 40 mg subcu daily. Lipid panel was requested for tomorrow. He was placed on oxygen 2 L nasal cannula and started on morphine sulfate 2 mg IV every 4 as needed for chest pain. (3) Alcohol abuse Is this a current diagnosis for this admission?: Yes Plan: 10/29/2018-patient is given the history of heavy alcohol use drinking one case containing 24 cans for the last 3 months on daily basis. Last drink was last night before his arrest. Be going to watch for DTs he was started on Ativan 1 mg IV every 4 as needed and diazepam 5 mg IV every 4 as needed for agitation. (4) Hyponatremia Is this a current diagnosis for this admission?: Yes Plan: 10/29/2018 admission sodium level is 130. Hyponatremia most likely secondary to poor oral intake. Plan is to start him on gentle IV fluids half normal at 50 cc/h to recheck labs tomorrow. (5) Tobacco abuse Is this a current diagnosis for this admission?: Yes Plan: 10/29/2018-patient is a heavy smoker placed on nicotine patch 14 mg daily. And counseling was provided for more than 10 minutes strongly advised to quit smoking. (6) Hypertension Is this a current diagnosis for this admission?: Yes Plan: 10/29/2018-patient is given the history of hypertension he is on losartan at home plan is to continue the present medication in the hospital. Pressure at the time of admission is 110/67. (7) Presence of stent in coronary artery in patient with coronary artery disease Is this a current diagnosis for this admission?: Yes Plan: 10/29/2018-patient has history of coronary artery disease status post stent placement. Patient is on Plavix at home Plavix which was continued and aspirin 25 mg p.o. daily started he was placed on Lovenox 40 mg subcu daily. - Time Time Spent: 50 to 70 Minutes Smoking Cessation Education: over 10 minutes Medications reviewed and adjusted accordingly: Yes Anticipated discharge: Home
[2018-10-29] MEDS: ENOXAPARIN SODIUM INJ 40 MG/0.4 ML DISP.SYRIN SUBCUT SCH (20:03)
[2018-10-29] MEDS: LORAZEPAM INJ 2 MG/1 ML VIAL IV PRN (20:03)
[2018-10-29] MEDS: LISINOPRIL 10 MG TABLET PO SCH (20:03)
[2018-10-29 20:56] LABS: URINE AMPHETAMINES SCREEN NEGATIVE; URINE BARBITURATES SCREEN NEGATIVE; URINE COCAINE SCREEN NEGATIVE; URINE MARIJUANA (THC) SCREEN NEGATIVE; URINE METHADONE SCREEN NEGATIVE; URINE PHENCYCLIDINE SCREEN NEGATIVE
[2018-10-29 21:04] LABS: CREATINE KINASE MB 1.66 ng/mL (<4.55)
[2018-10-29 21:06] LABS: URINE BENZODIAZEPINES SCREEN UNCONFIRMED POSITIVE
[2018-10-29 21:08] LABS: TROPONIN I < 0.012 ng/mL
[2018-10-29] MEDS: ATORVASTATIN CALCIUM 40 MG TABLET PO SCH (21:45)
[2018-10-29] MEDS: FAMOTIDINE 20 MG TABLET PO SCH (21:45)
[2018-10-29] MEDS: METHYLPREDNISOLONE INJ 40 MG/1 ML SDV IV SCH (21:45)
[2018-10-29] MEDS: GABAPENTIN 100 MG CAPSULE PO SCH (21:45)
[2018-10-29] MEDS: BUDESONIDE/FORMOTEROL 160-4.5 MCG 60 PUFF/6 GM MDI IH SCH (23:09)
--- NOTE | 2018-10-30 00:28 | EKG REPORT ---
SEVERITY:- NORMAL ECG - SINUS RHYTHM : Confirmed by: Sruthi Rivas MD 30-Oct-2018 00:27:25
[2018-10-30 01:58] LABS: CREATINE KINASE MB 1.37 ng/mL (<4.55)
[2018-10-30 02:03] LABS: TROPONIN I < 0.012 ng/mL
[2018-10-30] MEDS: LORAZEPAM INJ 2 MG/1 ML VIAL IV PRN ×4 (06:16→22:43)
[2018-10-30 08:49] LABS: ABSOLUTE LYMPHOCYTES (AUTO) 0.5 10^3/uL (0.5-4.7); ABSOLUTE MONOCYTES (AUTO) 0.4 10^3/uL (0.1-1.4); BASOPHILS % (AUTO) 0.2 % (0-2); TOTAL CELLS COUNTED % (AUTO) 100 %
[2018-10-30 08:59] LABS: ABSOLUTE NEUT (AUTO) 2.7 10^3/uL (1.7-8.2); HEMATOCRIT 37.2 % (37.9-51.0); HEMOGLOBIN 12.5 g/dL (13.5-17.0); LYMPHOCYTES % (AUTO) 12.9 % (13-45); MEAN CORPUSCULAR HEMOGLOBIN 29.1 pg (27.0-33.4); MEAN CORPUSCULAR HGB CONC 33.7 g/dL (32.0-36.0); MEAN CORPUSCULAR VOLUME 87 fl (80-97); PLATELET COUNT 196 10^3/uL (150-450); RED CELL DISTRIBUTION WIDTH 15.8 % (11.5-14.0); SEGMENTED NEUTROPHILS % (AUTO) 74.9 % (42-78); WHITE BLOOD COUNT 3.7 10^3/uL (4.0-10.5)
[2018-10-30 09:17] LABS: ALANINE AMINOTRANSFERASE 38 U/L (21-72); ALBUMIN 3.3 g/dL (3.5-5.0); ALKALINE PHOSPHATASE 73 U/L (38-126); ANION GAP 5 (5-19); ASPARTATE AMINO TRANSFERASE 25 U/L (17-59); BILIRUBIN,DIRECT 0.2 mg/dL (0.0-0.4); BILIRUBIN,TOTAL 0.3 mg/dL (0.2-1.3); BLOOD UREA NITROGEN 11 mg/dL (7-20); CALCIUM 8.4 mg/dL (8.4-10.2); CARBON DIOXIDE 37 mmol/L (22-30); CHLORIDE 90 mmol/L (98-107); GLUCOSE 216 mg/dL (75-110); POTASSIUM 4.7 mmol/L (3.6-5.0); SODIUM 131.5 mmol/L (137-145); TOTAL PROTEIN 5.8 g/dL (6.3-8.2); TRIGLYCERIDES 52 mg/dL (<150)
[2018-10-30 09:29] LABS: DIRECT LDL 50 mg/dL (<100)
[2018-10-30 09:40] LABS: CREATINE KINASE MB 1.28 ng/mL (<4.55); NT PRO BNP 204 pg/mL (5-900)
[2018-10-30 09:43] LABS: TROPONIN I < 0.012 ng/mL
[2018-10-30] MEDS ORDERED: (PENDING PHARMACY ID) (Lisinopril [Lisinopril] 20 MG) PO SCH (10:00)
[2018-10-30] MEDS ORDERED: (PENDING PHARMACY ID) (Tiotropium Bromide [Spiriva Respimat] 2 PUFF) IH SCH (10:00)
[2018-10-30] MEDS ORDERED: (PENDING PHARMACY ID) (Rosuvastatin Calcium [Rosuvastatin Calcium] 20 MG) PO SCH (10:00)
[2018-10-30] MEDS ORDERED: DOCUSATE SODIUM 100 MG/10 ML UDC PO SCH (10:00)
[2018-10-30] MEDS: LEVOFLOXACIN 500 MG/D5W RTU 500 MG/100 ML RTUPB IV SCH (10:31)
[2018-10-30] MEDS: CLOPIDOGREL BISULFATE 75 MG TABLET PO SCH (10:32)
[2018-10-30] MEDS: FAMOTIDINE 20 MG TABLET PO SCH ×2 (10:32→22:44)
[2018-10-30] MEDS: LISINOPRIL 10 MG TABLET PO SCH (10:32)
[2018-10-30] MEDS: NICOTINE 14 MG/24 HR PATCH.TD24 TD SCH (10:33)
[2018-10-30] MEDS: DOCUSATE SODIUM 100 MG CAPSULE PO SCH ×2 (10:33→17:41)
[2018-10-30] MEDS: ASPIRIN 325 MG TABLET PO SCH (10:33)
[2018-10-30] MEDS: METHYLPREDNISOLONE INJ 40 MG/1 ML SDV IV SCH ×2 (10:34→22:43)
[2018-10-30] MEDS: ENOXAPARIN SODIUM INJ 40 MG/0.4 ML DISP.SYRIN SUBCUT SCH (10:34)
[2018-10-30] MEDS: BUDESONIDE/FORMOTEROL 160-4.5 MCG 60 PUFF/6 GM MDI IH SCH ×2 (10:35→22:43)
--- NOTE | 2018-10-30 10:45 | EKG REPORT ---
SEVERITY:- NORMAL ECG - SINUS RHYTHM : Confirmed by: Sruthi Rivas MD 30-Oct-2018 10:44:28
[2018-10-30] MEDS: IPRATROPIUM/ALBUTEROL 0.5-2.5 MG/3 ML AMPUL NEB PRN (16:53)
--- NOTE | 2018-10-30 18:12 | PDOC PROGRESS REPORT ---
Subjective Progress Note for:: 10/30/18 Subjective:: Admission 10/29/18: LEIF NUÑEZ is a 63 year old male with history of COPD, coronary artery disease status post stent placement, chronic smoker, chronic alcohol user, hypertension, hyperlipidemia, anxiety, depression came from the intermediate with complaints of chest pain across the chest associated with a dry cough and wheezing for the last couple of days. Is also admitting to drinking heavy alcohol 24 cans/day until last night. admitting smoking feed and cigarettes according to the patient pain was a pressure-like pain 10 x 10 associated with shortness of breath denies any nausea denies any vomiting denies any sweating denies any association with activity. As per the patient pain was localized. He is also complaining of cough or dry cough associated with cold and chills. Requesting anxiety medications. In the emergency room workup was done chest x-ray was negative EKG shows sinus tachycardia pulse ox was 87% on room air, VBG was normal medical consult was called for admission. Went to talk to the patient in the emergency room he confirmed to me that he is having the chest pains shortness of breath dry cough for the last few days and drinking heavy for the last couple of months. 10/30/18: Accompanied by client sales and service officer. Lower extremities handcuffed. He is unkempt, but pleasant. Admits to significant alcohol abuse. No reports of acute chest pain last 24 hours. He does report a history of heart failure. Denies being febrile. Denies acute changes in breathing. Overall seems to be improving. Reason For Visit: COPD EXACERBATION Physical Exam Vital Signs: Temp Pulse Resp BP Pulse Ox 98.0 F 91 18 122/70 93 10/30/18 08:02 10/30/18 16:53 10/30/18 16:53 10/30/18 08:02 10/30/18 16:53 Intake & Output 10/29/18 10/30/18 10/31/18 06:59 06:59 06:59 Intake Total 200 100 Balance 200 100 Weight 58.1 kg General appearance: PRESENT: no acute distress, thin, other - Unkept, older than stated age. Head exam: PRESENT: atraumatic, normocephalic Eye exam: PRESENT: conjunctiva pink, EOMI, PERRLA. ABSENT: scleral icterus Mouth exam: PRESENT: moist, tongue midline Respiratory exam: PRESENT: prolonged expiratory phas, other - Possible faint rales. No significant wheeze or rhonchi appreciated Cardiovascular exam: PRESENT: RRR, +S1, +S2 Pulses: PRESENT: normal dorsalis pedis pul GI/Abdominal exam: PRESENT: other - Nontender, soft, no hepatomegaly appreciated, nondistended. Rectal exam: PRESENT: deferred Extremities exam: PRESENT: other - Trace bilateral lower extremity edema. Musculoskeletal exam: PRESENT: full ROM Neurological exam: PRESENT: alert, awake, oriented to person, oriented to place, oriented to time, oriented to situation, CN II-XII grossly intact. ABSENT: motor sensory deficit Psychiatric exam: PRESENT: appropriate affect, normal mood. ABSENT: homicidal ideation, suicidal ideation Results Laboratory Results: 10/30/18 08:10 10/30/18 08:10 10/30/18 10/30/18 10/30/18 08:10 08:10 08:10 WBC 3.7 L RBC 4.30 L Hgb 12.5 L Hct 37.2 L MCV 87 MCH 29.1 MCHC 33.7 RDW 15.8 H Plt Count 196 Seg Neutrophils % 74.9 Lymphocytes % 12.9 L Monocytes % 12.0 Eosinophils % 0.0 Basophils % 0.2 Absolute Neutrophils 2.7 Absolute Lymphocytes 0.5 Absolute Monocytes 0.4 Absolute Eosinophils 0.0 Absolute Basophils 0.0 Sodium 131.5 L Potassium 4.7 Chloride 90 L Carbon Dioxide 37 H Anion Gap 5 BUN 11 Creatinine 0.49 L Est GFR ( Amer) > 60 Est GFR (Non-Af Amer) > 60 Glucose 216 H Calcium 8.4 Magnesium 2.3 Total Bilirubin 0.3 AST 25 ALT 38 Alkaline Phosphatase 73 Total Protein 5.8 L Albumin 3.3 L Triglycerides 52 Cholesterol 143.60 LDL Cholesterol Direct 50 VLDL Cholesterol 10.0 HDL Cholesterol 92 TSH 3.29 10/29/18 10/29/18 10/29/18 15:47 15:47 20:05 Creatine Kinase 47 L CK-MB (CK-2) 2.32 1.66 Troponin I < 0.012 < 0.012 NT-Pro-B Natriuret Pep 10/30/18 10/30/18 01:23 08:10 Creatine Kinase CK-MB (CK-2) 1.37 1.28 Troponin I < 0.012 < 0.012 NT-Pro-B Natriuret Pep 204 Impressions: Chest X-Ray 10/29/18 15:37 IMPRESSION: No acute findings Assessment & Plan - Diagnosis (1) Atypical chest pain Is this a current diagnosis for this admission?: Yes (2) COPD with acute exacerbation Is this a current diagnosis for this admission?: Yes (3) Presence of stent in coronary artery in patient with coronary artery disease Is this a current diagnosis for this admission?: Yes (4) Alcohol abuse Is this a current diagnosis for this admission?: Yes (5) COPD (chronic obstructive pulmonary disease) Qualifiers: COPD type: COPD with acute exacerbation Qualified Code(s): J44.1 - Chronic obstructive pulmonary disease with (acute) exacerbation Is this a current diagnosis for this admission?: Yes (6) DNR (do not resuscitate) Is this a current diagnosis for this admission?: Yes (7) Hyponatremia Is this a current diagnosis for this admission?: Yes - Time Time Spent with patient: 15-24 minutes Smoking Cessation Education: 3 to 10 minutes Medications reviewed and adjusted accordingly: Yes - Inpatient Certification Based on my medical assessment, after consideration of the patient's comorbidi ties, presenting symptoms, or acuity I expect that the services needed warrant INPATIENT care.: Yes I certify that my determination is in accordance with my understanding of Gregorio herbert's requirements for reasonable and necessary INPATIENT services [42 CFR 412.3e].: Yes - Plan Summary Plan Summary: (1) COPD with acute exacerbation Is this a current diagnosis for this admission?: Yes Plan: 10/29/2018 patient has history of COPD secondary to chronic smoking came to the emergency room with chest pain and shortness of breath pulse ox on room air 87%. Plan is to admit him and telemetry as inpatient. Started on Levaquin-500 mg IV daily, ipratropium and Xopenex nebulizations every 6 as needed, is on 2 L nasal cannula was started. DVT prophylaxis and GI prophylaxis was requested. 10/30/18: Appears to be stable at this time. Started on a solu Medrol IV 40 mg every 12 hours. Plan to titrate down. Appears he may received 125 in the ER. We will continue the IV antibiotics for now. Continue previous breathing orders. (2) Atypical chest pain Is this a current diagnosis for this admission?: Yes Plan: 10/29/2018 patient came in with a particular chest pain EKG was sinus tachycardia cardiac enzymes are negative. Plan is to do the serial cardiac enzymes x3, EKG tomorrow. Started on aspirin 325 mg p.o. daily continued Plavix 75 mg p.o. daily and started him on Lovenox 40 mg subcu daily. Lipid panel was requested for tomorrow. He was placed on oxygen 2 L nasal cannula and started on morphine sulfate 2 mg IV every 4 as needed for chest pain. 10/30/18-no issues in last 24 hours. LDL less than 50, HDL greater than 90. Troponins were negative. No ST changes and EKG. patient self reports a history of heart failure. Echocardiogram in February 2017 showed a normal ejection. Given his significant alcohol abuse will again obtain an echocardiogram. Per record reports also seems he may have a history of endocarditis. Further questioning for IV drug use will be had. (3) Alcohol abuse Is this a current diagnosis for this admission?: Yes Plan: 10/29/2018-patient is given the history of heavy alcohol use drinking one case containing 24 cans for the last 3 months on daily basis. Last drink was last night before his arrest. Be going to watch for DTs he was started on Ativan 1 mg IV every 4 as needed and diazepam 5 mg IV every 4 as needed for agitation. 10/30/18-significant past history. Provide vitamin supplementation. cessation conversation had at length. Mild withdrawal symptoms controlled with Ativan ye evening and this afternoon. Not a candidate for rehab at this time as patient will be incarcerated on discharge. Albumin 1.3. Normal transaminases (4) Hyponatremia Is this a current diagnosis for this admission?: Yes Plan: 10/29/2018 admission sodium level is 130. Hyponatremia most likely secondary to poor oral intake. Plan is to start him on gentle IV fluids half normal at 50 cc/h to recheck labs tomorrow. 10/30/18-asymptomatic. Monitoring. Likely due to poor oral intake (5) Tobacco abuse Is this a current diagnosis for this admission?: Yes Plan: 10/29/2018-patient is a heavy smoker placed on nicotine patch 14 mg daily. And counseling was provided for more than 10 minutes strongly advised to quit smoking. 10/30/18-cessation conversation again had today. (6) Hypertension Is this a current diagnosis for this admission?: Yes Plan: 10/29/2018-patient is given the history of hypertension he is on losartan at home plan is to continue the present medication in the hospital. Pressure at the time of admission is 110/67. 10/30/18- 122/70. Monitoring. (7) Presence of stent in coronary artery in patient with coronary artery disease Is this a current diagnosis for this admission?: Yes Plan: 10/29/2018-patient has history of coronary artery disease status post stent placement. Patient is on Plavix at home & was continued on admission. Placed on aspirin 325 mg p.o. daily. placed on Lovenox 40 mg subcu daily on admission 10/30/18-troponins negative on admission. No current issues. 8. Recent admission for accessible A. fib with RVR resolved with IV Cardizem. No current issues. Monitoring. Likely related to alcohol use. Disposition: Will return to incarceration on discharge. Patient has a history of leaving AMA and being noncompliant. Also seems that he has become agitated and verbally aggressive in the past. Behavior not currently an issue.
[2018-10-30] MEDS: ATORVASTATIN CALCIUM 40 MG TABLET PO SCH (22:44)
[2018-10-30] MEDS: GABAPENTIN 100 MG CAPSULE PO SCH (22:44)
[2018-10-31 06:33] LABS: ABSOLUTE LYMPHOCYTES (AUTO) 0.6 10^3/uL (0.5-4.7); ABSOLUTE MONOCYTES (AUTO) 0.8 10^3/uL (0.1-1.4); BASOPHILS % (AUTO) 0.4 % (0-2); HEMATOCRIT 35.9 % (37.9-51.0); HEMOGLOBIN 11.9 g/dL (13.5-17.0); MEAN CORPUSCULAR HEMOGLOBIN 28.8 pg (27.0-33.4); MEAN CORPUSCULAR HGB CONC 33.2 g/dL (32.0-36.0); MEAN CORPUSCULAR VOLUME 87 fl (80-97); MONOCYTES % (AUTO) 10.8 % (3-13); PLATELET COUNT 240 10^3/uL (150-450); RED BLOOD COUNT 4.13 10^6/uL (4.35-5.55); RED CELL DISTRIBUTION WIDTH 15.9 % (11.5-14.0); SEGMENTED NEUTROPHILS % (AUTO) 80.8 % (42-78); TOTAL CELLS COUNTED % (AUTO) 100 %
[2018-10-31 06:34] LABS: WHITE BLOOD COUNT 7.4 10^3/uL (4.0-10.5)
[2018-10-31 06:47] LABS: ALANINE AMINOTRANSFERASE 36 U/L (21-72); ALBUMIN 3.3 g/dL (3.5-5.0); ALKALINE PHOSPHATASE 62 U/L (38-126); ANION GAP 6 (5-19); ASPARTATE AMINO TRANSFERASE 30 U/L (17-59); BILIRUBIN,DIRECT 0.2 mg/dL (0.0-0.4); BILIRUBIN,TOTAL 0.4 mg/dL (0.2-1.3); BLOOD UREA NITROGEN 10 mg/dL (7-20); CALCIUM 8.6 mg/dL (8.4-10.2); CARBON DIOXIDE 34 mmol/L (22-30); CHLORIDE 92 mmol/L (98-107); GLUCOSE 130 mg/dL (75-110); TOTAL PROTEIN 5.9 g/dL (6.3-8.2)
[2018-10-31] MEDS: LORAZEPAM INJ 2 MG/1 ML VIAL IV PRN ×3 (11:31→21:29)
[2018-10-31] MEDS: ENOXAPARIN SODIUM INJ 40 MG/0.4 ML DISP.SYRIN SUBCUT SCH (11:32)
[2018-10-31] MEDS: LEVOFLOXACIN 500 MG/D5W RTU 500 MG/100 ML RTUPB IV SCH (11:32)
[2018-10-31] MEDS: DOCUSATE SODIUM 100 MG CAPSULE PO SCH ×2 (11:32→19:23)
[2018-10-31] MEDS: ASPIRIN 325 MG TABLET PO SCH (11:32)
[2018-10-31] MEDS: CLOPIDOGREL BISULFATE 75 MG TABLET PO SCH (11:33)
[2018-10-31] MEDS: LISINOPRIL 10 MG TABLET PO SCH (11:33)
[2018-10-31] MEDS: NICOTINE 14 MG/24 HR PATCH.TD24 TD SCH (11:33)
[2018-10-31] MEDS: METHYLPREDNISOLONE INJ 40 MG/1 ML SDV IV SCH (11:33)
[2018-10-31] MEDS: FAMOTIDINE 20 MG TABLET PO SCH ×2 (11:33→21:28)
[2018-10-31] MEDS: BUDESONIDE/FORMOTEROL 160-4.5 MCG 60 PUFF/6 GM MDI IH SCH ×2 (11:35→21:31)
[2018-10-31] MEDS: IPRATROPIUM/ALBUTEROL 0.5-2.5 MG/3 ML AMPUL NEB PRN (16:24)
--- NOTE | 2018-10-31 18:04 | PDOC PROGRESS REPORT ---
Subjective Progress Note for:: 10/31/18 Subjective:: Admission 10/29/18: LEIF NUÑEZ is a 63 year old male with history of COPD, coronary artery disease status post stent placement, chronic smoker, chronic alcohol user, hypertension, hyperlipidemia, anxiety, depression came from the [place] [facility] with complaints of chest pain across the chest associated with a dry cough and wheezing for the last couple of days. Is also admitting to drinking heavy alcohol 24 cans/day until last night. admitting smoking feed and cigarettes according to the patient pain was a pressure-like pain 10 x 10 associated with shortness of breath denies any nausea denies any vomiting denies any sweating denies any association with activity. As per the patient pain was localized. He is also complaining of cough or dry cough associated with cold and chills. Requesting anxiety medications. In the emergency room workup was done chest x-ray was negative EKG shows sinus tachycardia pulse ox was 87% on room air, VBG was normal medical consult was called for admission. Went to talk to the patient in the emergency room he confirmed to me that he is having the chest pains shortness of breath dry cough for the last few days and drinking heavy for the last couple of months. 10/30/18: Accompanied by family preservation officer. Lower extremities handcuffed. He is unkempt, but pleasant. Admits to significant alcohol abuse. No reports of acute chest pain last 24 hours. He does report a history of heart failure. Denies being febrile. Denies acute changes in breathing. Overall seems to be improving. 10/31/18 continues to be accompanied by family preservation officer. He is on nasal cannula oxygen 3.5 L. Denies being on oxygen prior to admission. Continues to admit to significant alcohol abuse throughout most of his life. He continues to report shortness of breath. Vital signs continue to be stable. Today he is reporting that the chest pain is substernal and has been basically unrelenting since admission. He does not seem to be in distress. He denies other symptoms. He seems to possibly be motivated by staying in the hospital. No acute changes. He does have a mildly productive cough. He endorses subjective fever, however no objective fever has been measured. Reason For Visit: COPD EXACERBATION Physical Exam Vital Signs: Temp Pulse Resp BP Pulse Ox 98.1 F 75 20 113/61 100 10/31/18 16:28 10/31/18 16:28 10/31/18 16:28 10/31/18 16:28 10/31/18 16:28 Intake & Output 10/30/18 10/31/18 11/01/18 06:59 06:59 06:59 Intake Total 200 1821 100 Balance 200 1821 100 Weight 58.1 kg 58.7 kg General appearance: PRESENT: no acute distress, thin, other - Unkept Head exam: PRESENT: atraumatic Eye exam: PRESENT: PERRLA Mouth exam: PRESENT: dry mucosa Respiratory exam: PRESENT: prolonged expiratory phas, other - No significant rhonchi, wheeze, or crackles appreciated Cardiovascular exam: PRESENT: RRR, +S1, +S2 Pulses: PRESENT: normal dorsalis pedis pul Vascular exam: PRESENT: normal capillary refill GI/Abdominal exam: PRESENT: normal bowel sounds, soft. ABSENT: distended, guarding, mass, organolmegaly, rebound, tenderness Rectal exam: PRESENT: deferred Extremities exam: PRESENT: other - No edema bilateral lower extremities Musculoskeletal exam: PRESENT: full ROM, normal inspection Neurological exam: PRESENT: alert, awake, oriented to person, oriented to place, oriented to time, oriented to situation, CN II-XII grossly intact. ABSENT: motor sensory deficit Psychiatric exam: PRESENT: flat affect Results Laboratory Results: 10/31/18 06:08 10/31/18 06:08 10/31/18 10/31/18 06:08 06:08 WBC 7.4 RBC 4.13 L Hgb 11.9 L Hct 35.9 L MCV 87 MCH 28.8 MCHC 33.2 RDW 15.9 H Plt Count 240 Seg Neutrophils % 80.8 H Lymphocytes % 8.0 L Monocytes % 10.8 Eosinophils % 0.0 Basophils % 0.4 Absolute Neutrophils 6.0 Absolute Lymphocytes 0.6 Absolute Monocytes 0.8 Absolute Eosinophils 0.0 Absolute Basophils 0.0 Sodium 132.0 L Potassium 5.0 Chloride 92 L Carbon Dioxide 34 H Anion Gap 6 BUN 10 Creatinine 0.41 L Est GFR ( Amer) > 60 Est GFR (Non-Af Amer) > 60 Glucose 130 H Calcium 8.6 Magnesium 2.0 Total Bilirubin 0.4 AST 30 ALT 36 Alkaline Phosphatase 62 Total Protein 5.9 L Albumin 3.3 L Vitamin B12 363.0 Folate 11.00 10/29/18 10/29/18 10/29/18 15:47 15:47 20:05 Creatine Kinase 47 L CK-MB (CK-2) 2.32 1.66 Troponin I < 0.012 < 0.012 NT-Pro-B Natriuret Pep 10/30/18 10/30/18 01:23 08:10 Creatine Kinase CK-MB (CK-2) 1.37 1.28 Troponin I < 0.012 < 0.012 NT-Pro-B Natriuret Pep 204 Impressions: Chest X-Ray 10/29/18 15:37 IMPRESSION: No acute findings Assessment & Plan - Diagnosis (1) Atypical chest pain Is this a current diagnosis for this admission?: Yes (2) COPD with acute exacerbation Is this a current diagnosis for this admission?: Yes (3) Presence of stent in coronary artery in patient with coronary artery disease Is this a current diagnosis for this admission?: Yes (4) Alcohol abuse Is this a current diagnosis for this admission?: Yes (5) COPD (chronic obstructive pulmonary disease) Qualifiers: COPD type: COPD with acute exacerbation Qualified Code(s): J44.1 - Chronic obstructive pulmonary disease with (acute) exacerbation Is this a current diagnosis for this admission?: Yes (6) DNR (do not resuscitate) Is this a current diagnosis for this admission?: Yes (7) Hyponatremia Is this a current diagnosis for this admission?: Yes - Time Time Spent with patient: 15-24 minutes Smoking Cessation Education: 3 to 10 minutes Medications reviewed and adjusted accordingly: Yes Anticipated discharge: Other - Assisted - Inpatient Certification Based on my medical assessment, after consideration of the patient's comorbidities, presenting symptoms, or acuity I expect that the services needed warrant INPATIENT care.: Yes I certify that my determination is in accordance with my understanding of Medicare's requirements for reasonable and necessary INPATIENT services [42 CFR 412.3e].: Yes - Plan Summary Plan Summary: (1) COPD with acute exacerbation Is this a current diagnosis for this admission?: Yes Plan: 10/29/2018 patient has history of COPD secondary to chronic smoking came to the emergency room with chest pain and shortness of breath pulse ox on room air 87%. Plan is to admit him and telemetry as inpatient. Started on Levaquin-500 mg IV daily, ipratropium and Xopenex nebulizations every 6 as needed, is on 2 L nasal cannula was started. DVT prophylaxis and GI prophylaxis was requested. 10/30/18: Appears to be stable at this time. Started on a solu Medrol IV 40 mg every 12 hours. Plan to titrate down. Appears he may received 125 in the ER. We will continue the IV antibiotics for now. Continue previous breathing orders. 10/31/18: We will lower steroids. Stop IV Solu-Medrol. Start oral prednisone 20 mg twice daily. Titrate off accordingly. Blood cultures are negative at 24 hours. White blood cell count is normal. He is afebrile objectively. Consideration can given to discontinuing antibiotic coverage. (2) Atypical chest pain Is this a current diagnosis for this admission?: Yes Plan: 10/29/2018 patient came in with a particular chest pain EKG was sinus tachycardia cardiac enzymes are negative. Plan is to do the serial cardiac enzymes x3, EKG tomorrow. Started on aspirin 325 mg p.o. daily continued Plavix 75 mg p.o. daily and started him on Lovenox 40 mg subcu daily. Lipid panel was requested for tomorrow. He was placed on oxygen 2 L nasal cannula and started on morphine sulfate 2 mg IV every 4 as needed for chest pain. 10/30/18-no issues in last 24 hours. LDL less than 50, HDL greater than 90. Troponins were negative. No ST changes and EKG. patient self reports a history of heart failure. Echocardiogram in February 2017 showed a normal ejection. Given his significant alcohol abuse will again obtain an echocardiogram. Per record reports also seems he may have a history of endocarditis. Further questioning for IV drug use will be had. 10/31/18: Patient continues to complain of ongoing chest pain. Vital signs remained stable. We will continue to investigate. (3) Alcohol abuse Is this a current diagnosis for this admission?: Yes Plan: 10/29/2018-patient is given the history of heavy alcohol use drinking one case containing 24 cans for the last 3 months on daily basis. Last drink was last night before his arrest. Be going to watch for DTs he was started on Ativan 1 mg IV every 4 as needed and diazepam 5 mg IV every 4 as needed for agitation. 10/30/18-significant past history. Provide vitamin supplementation. cessation conversation had at length. Mild withdrawal symptoms controlled with Ativan yesterday evening and this afternoon. Not a candidate for rehab at this time as patient will be incarcerated on discharge. Albumin 1.3. Normal transaminases 10/31/18: Continues to intermittently use as needed Ativan. Withdrawal symptoms are milder. (4) Hyponatremia Is this a current diagnosis for this admission?: Yes Plan: 10/29/2018 admission sodium level is 130. Hyponatremia most likely secondary to poor oral intake. Plan is to start him on gentle IV fluids half normal at 50 cc/h to recheck labs tomorrow. 10/30/18-asymptomatic. Monitoring. Likely due to poor oral intake 10/31/18: 132. Slightly improved from yesterday. Asymptomatic. (5) Tobacco abuse Is this a current diagnosis for this admission?: Yes Plan: 10/29/2018-patient is a heavy smoker placed on nicotine patch 14 mg daily. And counseling was provided for more than 10 minutes strongly advised to quit smoking. 10/30/18-cessation conversation again had today. 10/31/18: Cessation conversation again had today. Patient refused the need for pharmacological intervention. (6) Hypertension Is this a current diagnosis for this admission?: Yes Plan: 10/29/2018-patient is given the history of hypertension he is on losartan at home plan is to continue the present medication in the hospital. Pressure at the time of admission is 110/67. 10/30/18- 122/70. Monitoring. 10/31/18: Last blood pressure 113/61. Seems to be well-controlled. (7) Presence of stent in coronary artery in patient with coronary artery disease Is this a current diagnosis for this admission?: Yes Plan: 10/29/2018-patient has history of coronary artery disease status post stent placement. Patient is on Plavix at home & was continued on admission. Placed on aspirin 325 mg p.o. daily. placed on Lovenox 40 mg subcu daily on admission 10/30/18-troponins negative on admission. No current issues. 10/31/18: No issues in the last 24 hours. 8. Recent admission for accessible A. fib with RVR resolved with IV Cardizem. No current issues. Monitoring. Likely related to alcohol use. 10/31/18: No episodes in the last 24 hours. Disposition: Will return to incarceration on discharge. Patient has a history of leaving AMA and being noncompliant. Also seems that he has become agitated and verbally aggressive in the past. Behavior not currently an issue. May be some behavior of malingering in order to avoid incarceration. Plan to titrate off the steroids. Will order echocardiogram to evaluate his heart. We will continue the antibiotics at this time. Consideration could be given to discontinuing them.
[2018-10-31] MEDS: METHYLPREDNISOLONE 4 MG TABLET PO SCH (19:24)
[2018-10-31] MEDS: GABAPENTIN 100 MG CAPSULE PO SCH (21:28)
[2018-10-31] MEDS: ATORVASTATIN CALCIUM 40 MG TABLET PO SCH (21:28)
[2018-11-01 05:53] LABS: ABSOLUTE LYMPHOCYTES (AUTO) 0.9 10^3/uL (0.5-4.7); ABSOLUTE MONOCYTES (AUTO) 1.4 10^3/uL (0.1-1.4); ABSOLUTE NEUT (AUTO) 7.1 10^3/uL (1.7-8.2); BASOPHILS % (AUTO) 0.2 % (0-2); EOSINOPHILS % (AUTO) 0.1 % (0-6); HEMATOCRIT 35.7 % (37.9-51.0); LYMPHOCYTES % (AUTO) 9.7 % (13-45); MEAN CORPUSCULAR HEMOGLOBIN 29.1 pg (27.0-33.4); MEAN CORPUSCULAR HGB CONC 33.7 g/dL (32.0-36.0); MEAN CORPUSCULAR VOLUME 86 fl (80-97); PLATELET COUNT 210 10^3/uL (150-450); RED BLOOD COUNT 4.13 10^6/uL (4.35-5.55); RED CELL DISTRIBUTION WIDTH 15.9 % (11.5-14.0); TOTAL CELLS COUNTED % (AUTO) 100 %; WHITE BLOOD COUNT 9.5 10^3/uL (4.0-10.5)
[2018-11-01 06:16] LABS: ANION GAP 8 (5-19); BLOOD UREA NITROGEN 15 mg/dL (7-20); CALCIUM 8.7 mg/dL (8.4-10.2); CARBON DIOXIDE 33 mmol/L (22-30); CHLORIDE 90 mmol/L (98-107); GLUCOSE 119 mg/dL (75-110); POTASSIUM 4.7 mmol/L (3.6-5.0); SODIUM 131.3 mmol/L (137-145)
[2018-11-01] MEDS: LISINOPRIL 10 MG TABLET PO SCH (09:59)
[2018-11-01] MEDS: ASPIRIN 325 MG TABLET PO SCH (09:59)
[2018-11-01] MEDS: CLOPIDOGREL BISULFATE 75 MG TABLET PO SCH (09:59)
[2018-11-01] MEDS: FAMOTIDINE 20 MG TABLET PO SCH ×2 (09:59→21:00)
[2018-11-01] MEDS: LEVOFLOXACIN 500 MG/D5W RTU 500 MG/100 ML RTUPB IV SCH (10:00)
[2018-11-01] MEDS: DOCUSATE SODIUM 100 MG CAPSULE PO SCH ×2 (10:00→17:56)
[2018-11-01] MEDS: ENOXAPARIN SODIUM INJ 40 MG/0.4 ML DISP.SYRIN SUBCUT SCH (10:01)
[2018-11-01] MEDS: METHYLPREDNISOLONE 4 MG TABLET PO SCH ×2 (10:01→17:56)
[2018-11-01] MEDS: NICOTINE 14 MG/24 HR PATCH.TD24 TD SCH (10:02)
[2018-11-01] MEDS: BUDESONIDE/FORMOTEROL 160-4.5 MCG 60 PUFF/6 GM MDI IH SCH ×2 (10:04→21:01)
[2018-11-01] MEDS ORDERED: DIAZEPAM INJ 10 MG/2 ML DISP.SYRIN IV PRN (13:00)
[2018-11-01] MEDS ORDERED: LORAZEPAM INJ 2 MG/1 ML VIAL ONE (13:19)
[2018-11-01] MEDS: ACETAMINOPHEN 325 MG TABLET PO PRN (13:22)
[2018-11-01] MEDS: IPRATROPIUM/ALBUTEROL 0.5-2.5 MG/3 ML AMPUL NEB SCH ×2 (14:08→20:06)
[2018-11-01] MEDS: THIAMINE HCL 100 MG TABLET PO SCH (14:26)
[2018-11-01] MEDS: FOLIC ACID 1 MG TABLET PO SCH (14:26)
--- NOTE | 2018-11-01 15:40 | XCELERA REPORT ---
[address] [address] Transthoracic Echocardiogram Report Name: LEIF NUÑEZ Age: 63 yrs Gender: Male : 1955 Patient Status: Inpatient Patient Location: [facility]A Study Date: 11/01/2018 10:16 AM Height: 66 in Weight: 129 lb BSA: 1.7 m2 Reason For Study: Significant alcohol abuse, SOB Ordering Physician: ALEXANDRIA CHAVEZ Performed By: George Nguyen Interpretation Summary Study quality fair with soem suboptimal images limiting detailed cardiac evaluation. Lack of contrast opacification limits evaluation for wall motion,intracardiac mass or thormbus. LVEF appears normal at 55-60%. RV mildly dilated with RV systolic funcyion appearing normal. Doppler data deficient to evaluate diastolic function. Aortic valve leaflets appear focally calcified/ thickened but appear to open well. Mitral valve leaflets appear focally thickened/calcified with mild to moderate , eccentric mitral regurgitation. Eccentricity of mitral regurgitation jet can lead to underestimation of severity. Trace tricuspid regurgitation. The IVC is dilated, but has some respiratory collapse suggesting high central venous pressures. Estimated RVSP at 30-35 mm Hg. The aortic root is normal size. There is no pericardial effusion. MMode/2D Measurements & Calculations RVDd: 2.3 cm LVIDd: 5.1 cm FS: 23.6 % Ao root diam: 2.8 cm IVSd: 0.55 cm LVIDs: 3.9 cm EDV(Teich): 121.7 ml LVPWd: 0.65 cm ESV(Teich): 64.5 ml Ao root area: 6.2 cm2 LA dimension: 3.4 cm EF(Teich): 47.0 % LVOT diam: 1.7 cm LVOT area: 2.2 cm2 Doppler Measurements & Calculations MV E max yanelis: MV P1/2t max yanelis: Ao V2 max: LV V1 max P.4 cm/sec 98.5 cm/sec 127.7 cm/sec 2.9 mmHg MV A max yanelis: MV P1/2t: 88.4 msec Ao max PG: LV V1 mean P.6 cm/sec MVA(P1/2t): 2.5 cm2 6.5 mmHg 1.4 mmHg MV E/A: 1.2 MV dec slope: Ao V2 mean: LV V1 max: 90.5 cm/sec 84.5 cm/sec 326.5 cm/sec2 Ao mean PG: LV V1 mean: MV dec time: 0.23 sec3.7 mmHg 55.4 cm/sec Ao V2 VTI: 23.9 cmLV V1 VTI: 14.2 cm LEA(I,D): 1.3 cm2 LEA(V,D): 1.4 cm2 MR max yanelis: SV(LVOT): 30.6 ml PA V2 max: TR max yanelis: 264.1 cm/sec 103.2 cm/sec 245.0 cm/sec MR max PG: PA max PG: TR max P.9 mmHg 4.3 mmHg 24.0 mmHg MV P1/2t-pr_phl: 88.4 msec Right Ventricle The right ventricle is mildly dilated. The right ventricular systolic function is normal. Atria The right atrium is normal. The left atrial size is normal. Mitral Valve MV leaflets appear focally thicekned with preserved opening. There is a mild to moderate amount of mitral regurgitation. The mitral regurgitant jet is eccentrically directed. Aortic Valve Focal calcification/ thckening of AV leaflets noted. The aortic valve is not well visualized secondary to technical limitations. There is a peak gradient of 7 mm of Hg. Tricuspid Valve There is a trace amount of tricuspid regurgitation. Pulmonic Valve The pulmonic valve is not well visualized. Great Vessels The aortic root is normal size. The IVC is dilated, but has some respiratory collapse suggesting high central venous pressures. Mean RA pressure estimated at 8 mm hg. Effusions There is no pericardial effusion. : ALEXANDRIA CHAVEZ > Dante Lucas
--- NOTE | 2018-11-01 16:44 | PDOC PROGRESS REPORT ---
Subjective Progress Note for:: 11/01/18 Subjective:: Patient continues to have tightness across his chest. He states he has had it since before he came into the hospital. He does report that he has had stents for coronary disease placed in the past. This does feel somewhat like that kind of discomfort. He is also been feeling anxious. He is a very heavy smoker as well. He has been eating and drinking without difficulty. No difficulty with urination. No abdominal pain. No new cough or sputum production. Reason For Visit: COPD EXACERBATION Physical Exam Vital Signs: Temp Pulse Resp BP Pulse Ox 98.3 F 78 18 115/63 97 11/01/18 11:17 11/01/18 14:10 11/01/18 14:10 11/01/18 11:17 11/01/18 14:10 Intake & Output 10/31/18 11/01/18 11/02/18 06:59 06:59 06:59 Intake Total 1821 1024 100 Balance 1821 1024 100 Weight 58.7 kg 64.5 kg General appearance: PRESENT: mild distress, thin Head exam: PRESENT: atraumatic, normocephalic Eye exam: ABSENT: conjunctival injection, scleral icterus Ear exam: PRESENT: normal external ear exam Mouth exam: PRESENT: moist, neck supple Respiratory exam: PRESENT: decreased breath sounds, unlabored, wheezes. ABSENT: rales, rhonchi Cardiovascular exam: PRESENT: RRR. ABSENT: systolic murmur Pulses: PRESENT: normal radial pulses Vascular exam: ABSENT: pallor GI/Abdominal exam: PRESENT: normal bowel sounds, soft. ABSENT: distended, firm, guarding, tenderness Rectal exam: PRESENT: deferred Gentrourinary exam: ABSENT: indwelling catheter Extremities exam: ABSENT: pedal edema Musculoskeletal exam: ABSENT: deformity Neurological exam: PRESENT: alert, awake, oriented to person, oriented to place, oriented to situation, CN II-XII grossly intact Psychiatric exam: PRESENT: anxious Skin exam: PRESENT: dry, intact, warm Results Laboratory Results: 11/01/18 05:19 11/01/18 05:19 11/01/18 11/01/18 05:19 05:19 WBC 9.5 RBC 4.13 L Hgb 12.0 L Hct 35.7 L MCV 86 MCH 29.1 MCHC 33.7 RDW 15.9 H Plt Count 210 Seg Neutrophils % 75.0 Lymphocytes % 9.7 L Monocytes % 15.0 H Eosinophils % 0.1 Basophils % 0.2 Absolute Neutrophils 7.1 Absolute Lymphocytes 0.9 Absolute Monocytes 1.4 Absolute Eosinophils 0.0 Absolute Basophils 0.0 Sodium 131.3 L Potassium 4.7 Chloride 90 L Carbon Dioxide 33 H Anion Gap 8 BUN 15 Creatinine 0.47 L Est GFR ( Amer) > 60 Est GFR (Non-Af Amer) > 60 Glucose 119 H Calcium 8.7 Magnesium 1.9 10/29/18 10/29/18 10/29/18 15:47 15:47 20:05 Creatine Kinase 47 L CK-MB (CK-2) 2.32 1.66 Troponin I < 0.012 < 0.012 NT-Pro-B Natriuret Pep 10/30/18 10/30/18 11/01/18 01:23 08:10 13:32 Creatine Kinase CK-MB (CK-2) 1.37 1.28 Troponin I < 0.012 < 0.012 < 0.012 NT-Pro-B Natriuret Pep 204 Impressions: Chest X-Ray 10/29/18 15:37 IMPRESSION: No acute findings Assessment & Plan - Diagnosis (1) Atypical chest pain Is this a current diagnosis for this admission?: Yes Plan: Patient has known coronary disease. However his troponins here have been negative including one today. EKG does not appear to have acute changes. Continue telemetry. Continue to treat COPD exacerbation and alcohol withdrawal. (2) COPD with acute exacerbation Is this a current diagnosis for this admission?: Yes Plan: Patient takes his DuoNeb scheduled and so I have added that every 6 hours scheduled along with continued as needed bronchodilators. We will continue his twice daily methylprednisolone. Continue Levaquin. (3) Presence of stent in coronary artery in patient with coronary artery disease Is this a current diagnosis for this admission?: Yes Plan: Continue Plavix and other CAD meds including atorvastatin and antihypertensives, lisinopril. (4) Alcohol withdrawal Qualifiers: Complication of substance-induced condition: uncomplicated Qualified Code(s): F10.230 - Alcohol dependence with withdrawal, uncomplicated Is this a current diagnosis for this admission?: Yes Plan: At this point it is mild. We are out of Valium and so I have increased his Ativan to 2 mg IV every 2 hours. Nursing assessment will continue every 2 hours per my discussion with nurse. He is hemodynamically stable at this time. He does have a history of alcohol withdrawal and alcohol withdrawal seizures. I started folic acid, thiamine, multivitamin daily (5) Hypertension Qualifiers: Hypertension type: essential hypertension Qualified Code(s): I10 - Essential (primary) hypertension Is this a current diagnosis for this admission?: Yes Plan: Continue on with his lisinopril. (6) Hyponatremia Is this a current diagnosis for this admission?: Yes Plan: Possibly related to chronic alcohol use. Continue to monitor, continue with IV fluid hydration with normal saline 100 mL/h for now during alcohol withdrawal. (7) Tobacco use disorder, severe, dependence Is this a current diagnosis for this admission?: Yes Plan: nicoderm patch in place - Time Time Spent with patient: 25-34 minutes Anticipated discharge: Other - Half-Way - Inpatient Certification Based on my medical assessment, after consideration of the patient's comorbidities, presenting symptoms, or acuity I expect that the services needed warrant INPATIENT care.: Yes I certify that my determination is in accordance with my understanding of Medicare's requirements for reasonable and necessary INPATIENT services [42 CFR 412.3e].: Yes Medical Necessity: Significant Comorbidiites Make Outpatient Treatment Too Risky, Need Close Monitoring Due to Risk of Patient Decompensation, Need For Continuous Telemetry Monitoring, Need for Neurological Checks - Plan Summary Plan Summary: Plan Summary: (1) COPD with acute exacerbation Is this a current diagnosis for this admission?: Yes Plan: 10/29/2018 patient has history of COPD secondary to chronic smoking came to the emergency room with chest pain and shortness of breath pulse ox on room air 87%. Plan is to admit him and telemetry as inpatient. Started on Levaquin-500 mg IV daily, ipratropium and Xopenex nebulizations every 6 as needed, is on 2 L nasal cannula was started. DVT prophylaxis and GI prophylaxis was requested. 10/30/18: Appears to be stable at this time. Started on a solu Medrol IV 40 mg every 12 hours. Plan to titrate down. Appears he may received 125 in the ER. We will continue the IV antibiotics for now. Continue previous breathing orders. 10/31/18: We will lower steroids. Stop IV Solu-Medrol. Start oral prednisone 20 mg twice daily. Titrate off accordingly. Blood cultures are negative at 24 hours. White blood cell count is normal. He is afebrile objectively. Consideration can given to discontinuing antibiotic coverage. (2) Atypical chest pain Is this a current diagnosis for this admission?: Yes Plan: 10/29/2018 patient came in with a particular chest pain EKG was sinus tachycardia cardiac enzymes are negative. Plan is to do the serial cardiac enzymes x3, EKG tomorrow. Started on aspirin 325 mg p.o. daily continued Plavix 75 mg p.o. daily and started him on Lovenox 40 mg subcu daily. Lipid panel was requested for tomorrow. He was placed on oxygen 2 L nasal cannula and started on morphine sulfate 2 mg IV every 4 as needed for chest pain. 10/30/18-no issues in last 24 hours. LDL less than 50, HDL greater than 90. Troponins were negative. No ST changes and EKG. patient self reports a history of heart failure. Echocardiogram in February 2017 showed a normal ejection. Given his significant alcohol abuse will again obtain an echocardiogram. Per record reports also seems he may have a history of endocarditis. Further questioning for IV drug use will be had. 10/31/18: Patient continues to complain of ongoing chest pain. Vital signs remained stable. We will continue to investigate. (3) Alcohol abuse Is this a current diagnosis for this admission?: Yes Plan: 10/29/2018-patient is given the history of heavy alcohol use drinking one case containing 24 cans for the last 3 months on daily basis. Last drink was last night before his arrest. Be going to watch for DTs he was started on Ativan 1 mg IV every 4 as needed and diazepam 5 mg IV every 4 as needed for agitation. 10/30/18-significant past history. Provide vitamin supplementation. cessation conversation had at length. Mild withdrawal symptoms controlled with Ativan yesterday evening and this afternoon. Not a candidate for rehab at this time as patient will be incarcerated on discharge. Albumin 1.3. Normal transaminases 10/31/18: Continues to intermittently use as needed Ativan. Withdrawal symptoms are milder. (4) Hyponatremia Is this a current diagnosis for this admission?: Yes Plan: 10/29/2018 admission sodium level is 130. Hyponatremia most likely secondary to poor oral intake. Plan is to start him on gentle IV fluids half normal at 50 cc/h to recheck labs tomorrow. 10/30/18-asymptomatic. Monitoring. Likely due to poor oral intake 10/31/18: 132. Slightly improved from yesterday. Asymptomatic. (5) Tobacco abuse Is this a current diagnosis for this admission?: Yes Plan: 10/29/2018-patient is a heavy smoker placed on nicotine patch 14 mg daily. And counseling was provided for more than 10 minutes strongly advised to quit smoking. 10/30/18-cessation conversation again had today. 10/31/18: Cessation conversation again had today. Patient refused the need for pharmacological intervention. (6) Hypertension Is this a current diagnosis for this admission?: Yes Plan: 10/29/2018-patient is given the history of hypertension he is on losartan at home plan is to continue the present medication in the hospital. Pressure at the time of admission is 110/67. 10/30/18- 122/70. Monitoring. 10/31/18: Last blood pressure 113/61. Seems to be well-controlled. (7) Presence of stent in coronary artery in patient with coronary artery disease Is this a current diagnosis for this admission?: Yes Plan: 10/29/2018-patient has history of coronary artery disease status post stent placement. Patient is on Plavix at home & was continued on admission. Placed on aspirin 325 mg p.o. daily. placed on Lovenox 40 mg subcu daily on admission 10/30/18-troponins negative on admission. No current issues. 10/31/18: No issues in the last 24 hours. 8. Recent admission for accessible A. fib with RVR resolved with IV Cardizem. No current issues. Monitoring. Likely related to alcohol use. 10/31/18: No episodes in the last 24 hours. Disposition: Will return to incarceration on discharge. Patient has a history of leaving AMA and being noncompliant. Also seems that he has become agitated and verbally aggressive in the past. Behavior not currently an issue. May be some behavior of malingering in order to avoid incarceration. Plan to titrate off the steroids. Will order echocardiogram to evaluate his heart. We will continue the antibiotics at this time. Consideration could be given to discontinuing them.
[2018-11-01] MEDS: NORMAL SALINE 1000 ML 1,000 ML IV PRN (17:56)
--- NOTE | 2018-11-01 19:42 | EKG REPORT ---
SEVERITY:- NORMAL ECG - SINUS RHYTHM : Confirmed by: Sruthi Rivas MD 01-Nov-2018 19:41:53
[2018-11-01] MEDS: GABAPENTIN 100 MG CAPSULE PO SCH (21:00)
[2018-11-01] MEDS: ATORVASTATIN CALCIUM 40 MG TABLET PO SCH (21:00)
[2018-11-02] MEDS: IPRATROPIUM/ALBUTEROL 0.5-2.5 MG/3 ML AMPUL NEB SCH ×4 (02:53→19:23)
[2018-11-02] MEDS: NORMAL SALINE 1000 ML 1,000 ML IV PRN (04:02)
[2018-11-02 06:08] LABS: BLOOD UREA NITROGEN 11 mg/dL (7-20); CALCIUM 8.3 mg/dL (8.4-10.2); GLUCOSE 105 mg/dL (75-110); POTASSIUM 4.6 mmol/L (3.6-5.0)
[2018-11-02 06:13] LABS: CARBON DIOXIDE 36 mmol/L (22-30); CHLORIDE 92 mmol/L (98-107); SODIUM 131.5 mmol/L (137-145)
[2018-11-02 06:18] LABS: ANION GAP 4 (5-19)
[2018-11-02] MEDS: FAMOTIDINE 20 MG TABLET PO SCH ×2 (09:11→21:07)
[2018-11-02] MEDS: THIAMINE HCL 100 MG TABLET PO SCH (09:11)
[2018-11-02] MEDS: LISINOPRIL 10 MG TABLET PO SCH (09:11)
[2018-11-02] MEDS: CLOPIDOGREL BISULFATE 75 MG TABLET PO SCH (09:11)
[2018-11-02] MEDS: MULTIVITAMIN TABLET PO SCH (09:11)
[2018-11-02] MEDS: ASPIRIN 325 MG TABLET PO SCH (09:11)
[2018-11-02] MEDS: LEVOFLOXACIN 500 MG/D5W RTU 500 MG/100 ML RTUPB IV SCH (09:12)
[2018-11-02] MEDS: DOCUSATE SODIUM 100 MG CAPSULE PO SCH ×2 (09:12→17:33)
[2018-11-02] MEDS: FOLIC ACID 1 MG TABLET PO SCH (09:12)
[2018-11-02] MEDS: LORAZEPAM INJ 2 MG/1 ML VIAL IV PRN ×3 (09:12→23:56)
[2018-11-02] MEDS: ACETAMINOPHEN 325 MG TABLET PO PRN (09:13)
[2018-11-02] MEDS: ENOXAPARIN SODIUM INJ 40 MG/0.4 ML DISP.SYRIN SUBCUT SCH (09:14)
[2018-11-02] MEDS: NICOTINE 14 MG/24 HR PATCH.TD24 TD SCH (09:16)
[2018-11-02] MEDS: BUDESONIDE/FORMOTEROL 160-4.5 MCG 60 PUFF/6 GM MDI IH SCH ×2 (09:19→21:08)
[2018-11-02] MEDS: METHYLPREDNISOLONE 4 MG TABLET PO SCH (09:19)
[2018-11-02] MEDS ORDERED: NORMAL SALINE 1000 ML 1,000 ML IV ONE (14:19)
--- NOTE | 2018-11-02 14:34 | PDOC PROGRESS REPORT ---
Subjective Progress Note for:: 11/02/18 Subjective:: Patient has chest tightness again today. It may worsen a little bit with deep breathing. Shortness of breath is overall improved. No fevers or chills. No sputum production. No hemoptysis. Agitation and anxiety from yesterday is also improved. He is not really able to eat normally and is not quite sure why, feeling kind of weak. Reason For Visit: COPD EXACERBATION Physical Exam Vital Signs: Temp Pulse Resp BP Pulse Ox 98.5 F 78 20 96/82 L 100 11/02/18 11:51 11/02/18 11:51 11/02/18 11:51 11/02/18 11:51 11/02/18 11:51 Intake & Output 11/01/18 11/02/18 11/03/18 06:59 06:59 06:59 Intake Total 1024 1926 100 Balance 1024 1926 100 Weight 64.5 kg 63.8 kg General appearance: PRESENT: disheveled, mild distress, thin Head exam: PRESENT: atraumatic, normocephalic Eye exam: ABSENT: conjunctival injection, scleral icterus Ear exam: PRESENT: normal external ear exam Mouth exam: PRESENT: moist, tongue midline Respiratory exam: PRESENT: clear to auscultation trudy, unlabored. ABSENT: rales, rhonchi, wheezes Cardiovascular exam: PRESENT: RRR. ABSENT: systolic murmur Pulses: PRESENT: normal radial pulses, normal dorsalis pedis pul GI/Abdominal exam: PRESENT: normal bowel sounds, soft. ABSENT: distended, guarding, tenderness Rectal exam: PRESENT: deferred Gentrourinary exam: ABSENT: indwelling catheter Musculoskeletal exam: PRESENT: other - Kyphosis Neurological exam: PRESENT: alert, awake, oriented to person, oriented to place, oriented to situation, CN II-XII grossly intact Psychiatric exam: PRESENT: anxious Skin exam: PRESENT: dry, warm Results Laboratory Results: 11/01/18 05:19 11/02/18 05:13 11/02/18 05:13 Sodium 131.5 L Potassium 4.6 Chloride 92 L Carbon Dioxide 36 H Anion Gap 4 L BUN 11 Creatinine 0.44 L Est GFR ( Amer) > 60 Est GFR (Non-Af Amer) > 60 Glucose 105 Calcium 8.3 L 10/29/18 10/29/18 10/29/18 15:47 15:47 20:05 Creatine Kinase 47 L CK-MB (CK-2) 2.32 1.66 Troponin I < 0.012 < 0.012 NT-Pro-B Natriuret Pep 10/30/18 10/30/18 11/01/18 01:23 08:10 13:32 Creatine Kinase CK-MB (CK-2) 1.37 1.28 Troponin I < 0.012 < 0.012 < 0.012 NT-Pro-B Natriuret Pep 204 Impressions: Chest X-Ray 10/29/18 15:37 IMPRESSION: No acute findings Assessment & Plan - Diagnosis (1) Atypical chest pain Is this a current diagnosis for this admission?: Yes Plan: Patient has COPD and coronary disease. His breathing is improving with COPD exacerbation treatment but his chest discomfort is not. He has had troponins trended and they were negative x3. He has some pleuritic component to his pain today so I am ordering a CTA to evaluate for PE. It is possible that given his extensive tobacco history there is an on detected malignancy causing the discomfort but this remains to be seen. (2) COPD with acute exacerbation Is this a current diagnosis for this admission?: Yes Plan: Continue steroids with taper, bronchodilators, antibiotics/Levaquin for at least 5 days (3) Presence of stent in coronary artery in patient with coronary artery disease Is this a current diagnosis for this admission?: Yes Plan: Known coronary disease. We will continue his Plavix, aspirin, atorvastatin. (4) Alcohol withdrawal Qualifiers: Complication of substance-induced condition: uncomplicated Qualified Code(s): F10.230 - Alcohol dependence with withdrawal, uncomplicated Is this a current diagnosis for this admission?: Yes Plan: Think he is improved from this perspective. The hospital is out of IV Valium so I discontinued that yesterday and increased his Ativan to 2 mg IV every 2 hours as needed anxiety agitation with hold parameters. He received 1 dose yesterday. I do not think he is gotten any Ativan today and he is doing well. (5) Hypertension Qualifiers: Hypertension type: essential hypertension Qualified Code(s): I10 - Essential (primary) hypertension Is this a current diagnosis for this admission?: Yes Plan: Hypertension at baseline, currently hypotensive. I am giving the patient a liter of saline to see if this helps his soft blood pressure. Not entirely clear etiology of the hypotension. CTA of the chest ordered to evaluate for PE. (6) Hyponatremia Is this a current diagnosis for this admission?: Yes Plan: Diet and alcohol abuse related. Baseline seems to be low 130s. We will continue to monitor. (7) Tobacco use disorder, severe, dependence Is this a current diagnosis for this admission?: Yes Plan: Patient does not feel well enough for tobacco cessation counseling. It would be prudent to do that before discharge. - Time Time Spent with patient: 25-34 minutes Medications reviewed and adjusted accordingly: Yes
[2018-11-02 16:29] LABS: CREATINE KINASE MB 1.23 ng/mL (<4.55)
[2018-11-02 16:33] LABS: TROPONIN I < 0.012 ng/mL
--- NOTE | 2018-11-02 17:42 | RADIOLOGY REPORT (SQ) ---
EXAM DESCRIPTION: CTA CHEST COMPLETED DATE/TIME: 11/02/2018 4:23 pm REASON FOR STUDY: eval for PE COMPARISON: 09/12/2015 TECHNIQUE: CT scan of the chest performed using helical scanning technique with dynamic intravenous contrast injection. Images reviewed with lung, soft tissue and bone windows. Reconstructed coronal and sagittal MPR images reviewed. Additional 3 dimensional post-processing performed to develop Maximal Intensity Projection images (LA P). All images stored on PACS. All CT scanners at this facility use dose modulation, iterative reconstruction, and/or weight based d osing when appropriate to reduce radiation dose to as low as reasonably achievable (ALARA). [facility]: Dose Right [facility]: CareDose [facility]: Dose Right [facility]: Teradose 4D [facility]: Gizmoz CONTRAST TYPE AND DOSE: contrast/concentration: Isovue 350.00 mg/ml; Total Contrast Delivered: 67.0 ml; Total Saline Delivered: 80.0 ml Contrast bolus adequate for pulmonary arteries and aorta. RENAL FUNCTION: GFR > 60. RADIATION DOSE: CT Rad equipment meets quality standard of care and radiation dose reduction techniq ues were employed. CTDIvol: 14.3 - 33.1 mGy. DLP: 511 mGy-cm. . LIMITATIONS: Mild breathing motion. FINDINGS: LUNGS AND PLEURA: No masses, infiltrates, or pneumothorax. No pleural effusions or pleura l calcifications. AORTA AND GREAT VESSELS: No aneurysm. Contrast bolus not optimized for the aorta. HEART: No pericardial effusion. Moderate coronary artery calcifications. PULMONARY ARTERIES: No emboli visualized in the main pulmonary arteries or the segmental branches. HILAR AND MEDIASTINAL STRUCTURES: No identified masses or abnormal nodes. HARDWARE: None in the chest. UPPER ABDOMEN: No significant findings. Limited exam. THYROID AND OTHER SOFT TISSUES: No masses. No adenopathy. BONES: No acute finding. Similar multilevel compression deformities in the midthoracic spine. 3D MIPS: Confirm above findings. OTHER: No other significant finding. IMPRESSION: No emboli visualized in the main pulmonary arteries or the segmental branches. No consolidation or pleural effusion. COMMENT: Quality ID # [id number]: Final reports with documentation of one or more dose reduction techniques (e.g., Automated exposure control, adjustment of the mA and/or kV according to patient size, use of iterative reconstruction technique) TECHNICAL DOCUMENTATION: JOB ID: [id number] [place]-72 2010 [employer]- All Rights Reserved Reading location - IP/workstation name: [email or web address]
[2018-11-02] MEDS ORDERED: METHYLPREDNISOLONE 4 MG TABLET PO SCH (18:00)
[2018-11-02] MEDS: ATORVASTATIN CALCIUM 40 MG TABLET PO SCH (21:07)
[2018-11-02] MEDS: GABAPENTIN 100 MG CAPSULE PO SCH (21:07)
[2018-11-02 22:08] LABS: CREATINE KINASE MB 1.46 ng/mL (<4.55)
[2018-11-02 22:09] LABS: TROPONIN I < 0.012 ng/mL
[2018-11-03] MEDS: IPRATROPIUM/ALBUTEROL 0.5-2.5 MG/3 ML AMPUL NEB SCH ×4 (02:28→21:28)
[2018-11-03 05:26] LABS: ANION GAP 6 (5-19); BLOOD UREA NITROGEN 13 mg/dL (7-20); CALCIUM 8.6 mg/dL (8.4-10.2); CARBON DIOXIDE 31 mmol/L (22-30); CHLORIDE 93 mmol/L (98-107); GLUCOSE 102 mg/dL (75-110); POTASSIUM 4.1 mmol/L (3.6-5.0); SODIUM 129.8 mmol/L (137-145)
[2018-11-03 06:29] LABS: CREATINE KINASE MB 1.54 ng/mL (<4.55)
[2018-11-03 06:32] LABS: TROPONIN I < 0.012 ng/mL
[2018-11-03] MEDS: ASPIRIN 325 MG TABLET PO SCH (10:14)
[2018-11-03] MEDS: BUDESONIDE/FORMOTEROL 160-4.5 MCG 60 PUFF/6 GM MDI IH SCH ×2 (10:15→21:21)
[2018-11-03] MEDS: PREDNISONE 20 MG TABLET PO SCH (10:16)
[2018-11-03] MEDS: MULTIVITAMIN TABLET PO SCH (10:16)
[2018-11-03] MEDS: FAMOTIDINE 20 MG TABLET PO SCH ×2 (10:16→21:20)
[2018-11-03] MEDS: CLOPIDOGREL BISULFATE 75 MG TABLET PO SCH (10:16)
[2018-11-03] MEDS: DOCUSATE SODIUM 100 MG CAPSULE PO SCH ×2 (10:16→17:12)
[2018-11-03] MEDS: THIAMINE HCL 100 MG TABLET PO SCH (10:16)
[2018-11-03] MEDS: NICOTINE 14 MG/24 HR PATCH.TD24 TD SCH (10:16)
[2018-11-03] MEDS: LEVOFLOXACIN 500 MG/D5W RTU 500 MG/100 ML RTUPB IV SCH (10:17)
[2018-11-03] MEDS: FOLIC ACID 1 MG TABLET PO SCH (10:17)
[2018-11-03] MEDS: ENOXAPARIN SODIUM INJ 40 MG/0.4 ML DISP.SYRIN SUBCUT SCH (10:18)
[2018-11-03] MEDS: LORAZEPAM INJ 2 MG/1 ML VIAL IV PRN (11:23)
[2018-11-03] MEDS ORDERED: NORMAL SALINE 1000 ML 1,000 ML IV PRN ×3 (13:00→15:28)
[2018-11-03] MEDS ORDERED: LORAZEPAM INJ 2 MG/1 ML VIAL IV PRN (15:25)
--- NOTE | 2018-11-03 15:29 | PDOC PROGRESS REPORT ---
Subjective Progress Note for:: 11/03/18 Subjective:: 11/03/2018-no acute events in the last 24 hours. His pulse ox on 1 L is 98%. With activity he is getting hypoxic. We are going to check his pulse ox on room air today and documented in the chart because if he need oxygen he may not able to go back to the local [facility]. Patient denies any complaints or concerns. Reason For Visit: COPD EXACERBATION Physical Exam Vital Signs: Temp Pulse Resp BP Pulse Ox 97.7 F 88 16 90/51 L 97 11/03/18 12:00 11/03/18 14:00 11/03/18 13:51 11/03/18 12:00 11/03/18 13:51 Intake & Output 11/02/18 11/03/18 11/04/18 06:59 06:59 06:59 Intake Total 1925 2095 100 Balance 1925 2095 100 Weight 63.8 kg 64 kg General appearance: PRESENT: mild distress Head exam: PRESENT: atraumatic Eye exam: PRESENT: PERRLA Mouth exam: PRESENT: dry mucosa Neck exam: ABSENT: carotid bruit, JVD, lymphadenopathy, thyromegaly Respiratory exam: PRESENT: decreased breath sounds Pulses: PRESENT: normal dorsalis pedis pul GI/Abdominal exam: PRESENT: normal bowel sounds, soft. ABSENT: distended, guarding, mass, organolmegaly, rebound, tenderness Extremities exam: PRESENT: full ROM. ABSENT: calf tenderness, clubbing, pedal edema Neurological exam: PRESENT: alert, awake, oriented to person, oriented to place, oriented to time, oriented to situation, CN II-XII grossly intact. ABSENT: motor sensory deficit Psychiatric exam: PRESENT: appropriate affect, normal mood. ABSENT: homicidal ideation, suicidal ideation Results Laboratory Results: 11/01/18 05:19 11/03/18 03:43 11/03/18 03:43 Sodium 129.8 L Potassium 4.1 Chloride 93 L Carbon Dioxide 31 H Anion Gap 6 BUN 13 Creatinine 0.49 L Est GFR ( Amer) > 60 Est GFR (Non-Af Amer) > 60 Glucose 102 Calcium 8.6 10/29/18 10/29/18 10/29/18 15:47 15:47 20:05 Creatine Kinase 47 L CK-MB (CK-2) 2.32 1.66 Troponin I < 0.012 < 0.012 NT-Pro-B Natriuret Pep 10/30/18 10/30/18 11/01/18 01:23 08:10 13:32 Creatine Kinase CK-MB (CK-2) 1.37 1.28 Troponin I < 0.012 < 0.012 < 0.012 NT-Pro-B Natriuret Pep 204 11/02/18 11/02/18 11/02/18 15:15 15:15 21:20 Creatine Kinase 27 L 28 L CK-MB (CK-2) 1.23 Troponin I < 0.012 NT-Pro-B Natriuret Pep 11/02/18 11/03/18 11/03/18 21:20 03:43 03:43 Creatine Kinase 26 L CK-MB (CK-2) 1.46 1.54 Troponin I < 0.012 < 0.012 NT-Pro-B Natriuret Pep Impressions: Chest X-Ray 10/29/18 15:37 IMPRESSION: No acute findings Chest/Abdomen CTA 11/02/18 00:00 IMPRESSION: No emboli visualized in the main pulmonary arteries or the segmental branches. No consolidation or pleural effusion. Assessment & Plan - Diagnosis (1) COPD with acute exacerbation Is this a current diagnosis for this admission?: Yes Plan: 10/29/2018 patient has history of COPD secondary to chronic smoking came to the emergency room with chest pain and shortness of breath pulse ox on room air 87%. Plan is to admit him and telemetry as inpatient. Started on Levaquin-500 mg IV daily, ipratropium and Xopenex nebulizations every 6 as needed, is on 2 L nasal cannula was started. DVT prophylaxis and GI prophylaxis was requested. 11/03/2018-patient is on levofloxacin, DuoNeb nebulizations 3 mL every 6 hours, Xopenex nebulizations every 8 as needed. He is also receiving prednisone 40 mg p.o. daily. Plan is to continue the present management at least another day. (2) Atypical chest pain Is this a current diagnosis for this admission?: Yes Plan: 10/29/2018 patient came in with a particular chest pain EKG was sinus tachycardia cardiac enzymes are negative. Plan is to do the serial cardiac enzymes x3, EKG tomorrow. Started on aspirin 325 mg p.o. daily continued Plavix 75 mg p.o. daily and started him on Lovenox 40 mg subcu daily. Lipid panel was requested for tomorrow. He was placed on oxygen 2 L nasal cannula and started on morphine sulfate 2 mg IV every 4 as needed for chest pain. Patient has COPD and coronary disease. His breathing is improving with COPD exacerbation treatment but his chest discomfort is not. He has had troponins trended and they were negative x3. He has some pleuritic component to his pain today so I am ordering a CTA to evaluate for PE. It is possible that given his extensive tobacco history there is an on detected malignancy causing the discomfort but this remains to be seen. 11/03/2018-CT of the chest was done yesterday for atypical chest pain and which was negative for PE and consolidation. Cardiac enzymes and EKG prior are normal. Most likely musculoskeletal pain. (3) Alcohol abuse Is this a current diagnosis for this admission?: Yes Plan: 10/29/2018-patient is given the history of heavy alcohol use drinking one case containing 24 cans for the last 3 months on daily basis. Last drink was last night before his arrest. Be going to watch for DTs he was started on Ativan 1 mg IV every 4 as needed and diazepam 5 mg IV every 4 as needed for agitation. Think he is improved from this perspective. The hospital is out of IV Valium so I discontinued that yesterday and increased his Ativan to 2 mg IV every 2 hours as needed anxiety agitation with hold parameters. He received 1 dose yesterday. I do not think he is gotten any Ativan today and he is doing well. 11/03/2018-patient has history of heavy alcohol use be watching for the DTs. No symptoms or signs of alcohol withdrawal during the hospital stay. Presently he is on Ativan 2 mg IV every 2 hours as needed. Planning to decrease the dose to 1 mg IV every 6 as needed for agitation and anxiety. (4) Hyponatremia Is this a current diagnosis for this admission?: Yes Plan: 10/29/2018 admission sodium level is 130. Hyponatremia most likely secondary to poor oral intake. Plan is to start him on gentle IV fluids half normal at 50 cc/h to recheck labs tomorrow. 11/03/2018-patient's sodium is 130 I think this is his baseline. it is may be because of the diet and alcohol use. We will continue to check his sodium levels on regular basis. (5) Tobacco abuse Is this a current diagnosis for this admission?: Yes Plan: 10/29/2018-patient is a heavy smoker placed on nicotine patch 14 mg daily. And counseling was provided for more than 10 minutes strongly advised to quit smoking. 11/03/2018-smoking counseling was again provided today. Strongly advised to quit smoking. (6) Hypertension Qualifiers: Hypertension type: essential hypertension Qualified Code(s): I10 - Essential (primary) hypertension Is this a current diagnosis for this admission?: Yes Plan: 10/29/2018-patient is given the history of hypertension he is on losartan at home plan is to continue the present medication in the hospital. Pressure at the time of admission is 110/67. 11/03/2018-patient blood pressure today is 90/51. Plan is to continue the IV fluids normal saline at 50 cc/h. (7) Presence of stent in coronary artery in patient with coronary artery disease Is this a current diagnosis for this admission?: Yes Plan: 10/29/2018-patient has history of coronary artery disease status post stent placement. Patient is on Plavix at home Plavix which was continued and aspirin 325 mg p.o. daily started he was placed on Lovenox 40 mg subcu daily. 11/03/2018-patient complaining of atypical chest pain most likely musculoskeletal during this hospital stay. CT of the chest was done which was negative for PE and cardiac workup was negative. Patient is presently on Lovenox 40 mg subcu daily, Plavix 75 mg p.o. daily and aspirin 325 mg p.o. daily. - Time Time Spent with patient: 15-24 minutes Medications reviewed and adjusted accordingly: Yes Anticipated discharge: Home
[2018-11-03] MEDS: ATORVASTATIN CALCIUM 40 MG TABLET PO SCH (21:20)
[2018-11-03] MEDS: GABAPENTIN 100 MG CAPSULE PO SCH (21:20)
[2018-11-04] MEDS: IPRATROPIUM/ALBUTEROL 0.5-2.5 MG/3 ML AMPUL NEB SCH ×2 (02:17→07:48)
[2018-11-04 07:01] LABS: HEMATOCRIT 32.6 % (37.9-51.0); MEAN CORPUSCULAR HEMOGLOBIN 29.1 pg (27.0-33.4); MEAN CORPUSCULAR HGB CONC 33.6 g/dL (32.0-36.0); MEAN CORPUSCULAR VOLUME 87 fl (80-97); PLATELET COUNT 198 10^3/uL (150-450); RED BLOOD COUNT 3.77 10^6/uL (4.35-5.55); RED CELL DISTRIBUTION WIDTH 16.2 % (11.5-14.0); WHITE BLOOD COUNT 7.6 10^3/uL (4.0-10.5)
[2018-11-04 07:08] LABS: ALANINE AMINOTRANSFERASE 35 U/L (21-72); ALBUMIN 3.3 g/dL (3.5-5.0); ALKALINE PHOSPHATASE 59 U/L (38-126); ANION GAP 6 (5-19); ASPARTATE AMINO TRANSFERASE 27 U/L (17-59); BILIRUBIN,DIRECT 0.2 mg/dL (0.0-0.4); BILIRUBIN,TOTAL 0.3 mg/dL (0.2-1.3); BLOOD UREA NITROGEN 10 mg/dL (7-20); CALCIUM 8.3 mg/dL (8.4-10.2); CARBON DIOXIDE 32 mmol/L (22-30); CHLORIDE 95 mmol/L (98-107); GLUCOSE 85 mg/dL (75-110); SODIUM 132.6 mmol/L (137-145); TOTAL PROTEIN 5.7 g/dL (6.3-8.2)
[2018-11-04 08:09] LABS: ABSOLUTE LYMPHOCYTES# (MANUAL) 2.2 10^3/uL (0.5-4.7); ABSOLUTE MONOCYTES # (MANUAL) 1.4 10^3/uL (0.1-1.4); ANISOCYTOSIS 1+; BASOPHILS % (MANUAL) 0 % (0-2); BURR CELLS SLIGHT; EOSINOPHILS % (MANUAL) 0 % (0-6); LYMPHOCYTES % (MANUAL) 29 % (13-45); MONOCYTES % (MANUAL) 19 % (3-13); OVALOCYTES SLIGHT; POIKILOCYTOSIS SLIGHT; SCHISTOCYTES SLIGHT; SEGMENTED NEUTROPHILS % (MAN) 52 % (42-78); TOTAL CELLS COUNTED 100
[2018-11-04 08:10] LABS: PLATELET COMMENT ADEQUATE
[2018-11-04] MEDS: DOCUSATE SODIUM 100 MG CAPSULE PO SCH (09:34)
[2018-11-04] MEDS: FAMOTIDINE 20 MG TABLET PO SCH (09:35)
[2018-11-04] MEDS: FOLIC ACID 1 MG TABLET PO SCH (09:35)
[2018-11-04] MEDS: ASPIRIN 325 MG TABLET PO SCH (09:35)
[2018-11-04] MEDS: CLOPIDOGREL BISULFATE 75 MG TABLET PO SCH (09:35)
[2018-11-04] MEDS: PREDNISONE 20 MG TABLET PO SCH (09:35)
[2018-11-04] MEDS: THIAMINE HCL 100 MG TABLET PO SCH (09:35)
[2018-11-04] MEDS: ENOXAPARIN SODIUM INJ 40 MG/0.4 ML DISP.SYRIN SUBCUT SCH (09:36)
[2018-11-04] MEDS: NICOTINE 14 MG/24 HR PATCH.TD24 TD SCH (09:36)
[2018-11-04] MEDS: MULTIVITAMIN TABLET PO SCH (09:38)
[2018-11-04] MEDS: BUDESONIDE/FORMOTEROL 160-4.5 MCG 60 PUFF/6 GM MDI IH SCH (10:28)
[2018-11-04 13:09] VITALS: BP 90/51
--- NOTE | 2018-11-04 13:15 | PDOC DISCHARGE SUMMARY ---
General - Admit/Disc Date/PCP Admission Date/Primary Care Provider: 10/29/18 18:08 LESLY BRYAN MD Discharge Date: 11/04/18 - Discharge Diagnosis (1) COPD with acute exacerbation Is this a current diagnosis for this admission?: Yes Summary: 10/29/2018 patient has history of COPD secondary to chronic smoking came to the emergency room with chest pain and shortness of breath pulse ox on room air 87%. Plan is to admit him and telemetry as inpatient. Started on Levaquin-500 mg IV daily, ipratropium and Xopenex nebulizations every 6 as needed, is on 2 L nasal cannula was started. DVT prophylaxis and GI prophylaxis was requested. 11/03/2018-patient is on levofloxacin, DuoNeb nebulizations 3 mL every 6 hours, Xopenex nebulizations every 8 as needed. He is also receiving prednisone 40 mg p.o. daily. Plan is to continue the present management at least another day. 11/04/2018-patient is admitted with acute: Chronic exacerbation of COPD. In the emergency room pulse ox on room air is around 87%. He was treated with levofloxacin 500 mg IV daily, ipratropium and Xopenex nebulizations. He was also on prednisone during the hospital stay. Pulse ox is 98% on room air today. COPD exacerbation is resolving. pt is expressing desire to go home today. (2) Atypical chest pain Is this a current diagnosis for this admission?: Yes Summary: 10/29/2018 patient came in with a particular chest pain EKG was sinus tachycardia cardiac enzymes are negative. Plan is to do the serial cardiac enzymes x3, EKG tomorrow. Started on aspirin 325 mg p.o. daily continued Plavix 75 mg p.o. daily and started him on Lovenox 40 mg subcu daily. Lipid panel was requested for tomorrow. He was placed on oxygen 2 L nasal cannula and started on morphine sulfate 2 mg IV every 4 as needed for chest pain. Patient has COPD and coronary disease. His breathing is improving with COPD exacerbation treatment but his chest discomfort is not. He has had troponins trended and they were negative x3. He has some pleuritic component to his pain today so I am ordering a CTA to evaluate for PE. It is possible that given his extensive tobacco history there is an on detected malignancy causing the discomfort but this remains to be seen. 11/03/2018-CT of the chest was done yesterday for atypical chest pain and which was negative for PE and consolidation. Cardiac enzymes and EKG prior are normal. Most likely musculoskeletal pain. 11/04/2018-patient is admitted with atypical chest pains workup was negative. CT of the chest is negative for PE, cardiac enzymes and EKG are normal. Chest pain most likely musculoskeletal. (3) Alcohol abuse Is this a current diagnosis for this admission?: Yes Summary: 10/29/2018-patient is given the history of heavy alcohol use drinking one case containing 24 cans for the last 3 months on daily basis. Last drink was last night before his arrest. Be going to watch for DTs he was started on Ativan 1 mg IV every 4 as needed and diazepam 5 mg IV every 4 as needed for agitation. Think he is improved from this perspective. The hospital is out of IV Valium so I discontinued that yesterday and increased his Ativan to 2 mg IV every 2 hours as needed anxiety agitation with hold parameters. He received 1 dose yesterday. I do not think he is gotten any Ativan today and he is doing well. 11/03/2018-patient has history of heavy alcohol use be watching for the DTs. No symptoms or signs of alcohol withdrawal during the hospital stay. Presently he is on Ativan 2 mg IV every 2 hours as needed. Planning to decrease the dose to 1 mg IV every 6 as needed for agitation and anxiety. 11/04/2018-patient admitted drinking 1 case of beer continue 24 cans on a daily basis. He was placed on a IV Ativan, IV diazepam and also on banana bag IV daily. No DTs noticed during the hospital stay. Patient is requesting to go home today strongly advised to quit drinking. He was also recommended to join the alcohol Anonymous group. (4) Hyponatremia Is this a current diagnosis for this admission?: Yes Summary: 10/29/2018 admission sodium level is 130. Hyponatremia most likely secondary to poor oral intake. Plan is to start him on gentle IV fluids half normal at 50 cc/h to recheck labs tomorrow. 11/03/2018-patient's sodium is 130 I think this is his baseline. it is may be because of the diet and alcohol use. We will continue to check his sodium levels on regular basis. 11/04/2018-patient's serum sodium today is 132.6. Hyponatremia most likely secondary to poor oral intake and heavy alcohol use. His baseline sodium is around 130. Patient is asymptomatic. (5) Tobacco abuse Is this a current diagnosis for this admission?: Yes Summary: 11/04/2018-patient is a chronic smoker smokes 1 pack/day. Again smoking counseling was provided for more than 10 minutes. He was strongly advised to quit smoking. (6) Hypertension Is this a current diagnosis for this admission?: Yes Summary: 10/29/2018-patient is given the history of hypertension he is on losartan at home plan is to continue the present medication in the hospital. Pressure at the time of admission is 110/67. 11/03/2018-patient blood pressure today is 90/51. Plan is to continue the IV fluids normal saline at 50 cc/h. 11/04/2018-patient blood pressure today is 144/82. Patient is on losartan at home and he was advised to continue losartan after discharge. (7) Presence of stent in coronary artery in patient with coronary artery disease Is this a current diagnosis for this admission?: Yes Summary: 10/29/2018-patient has history of coronary artery disease status post stent placement. Patient is on Plavix at home Plavix which was continued and aspirin 325 mg p.o. daily started he was placed on Lovenox 40 mg subcu daily. 11/03/2018-patient complaining of atypical chest pain most likely musculoskeletal during this hospital stay. CT of the chest was done which was negative for PE and cardiac workup was negative. Patient is presently on Lovenox 40 mg subcu d aily, Plavix 75 mg p.o. daily and aspirin 325 mg p.o. daily. 11/04/2018-patient has history of coronary artery disease with a stent placement. Complaint of atypical chest pain during the hospital stay cardiac enzymes and EKG were normal. - Additional Information Resuscitation Status: Full Code Discharge Diet: Cardiac Discharge Activity: Activity As Tolerated Home Medications: Clopidogrel Bisulfate [Plavix 75 mg Tablet] 75 mg PO DAILY 05/07/18 Lisinopril 20 mg PO DAILY 05/07/18 Rosuvastatin Calcium 20 mg PO DAILY 05/07/18 Budesonide/Formoterol Fumarate [Symbicort HFA 160-4.5 mcg Inhaler 6 gm] 2 puff IH Q12 10/26/18 Gabapentin [Neurontin 100 mg Capsule] 100 mg PO QHS 10/26/18 Tiotropium [place] [Spiriva Respimat] 2 puff IH DAILY 10/26/18 History of Present Illness History of Present Illness: LEIF NUÑEZ is a 63 year old male with history of COPD, coronary artery disease status post stent placement, chronic smoker, chronic alcohol user, hypertension, hyperlipidemia, anxiety, depression came from the [facility] with complaints of chest pain across the chest associated with a dry cough and wheezing for the last couple of days. Is also admitting to drinking heavy alcohol 24 cans/day until last night. admitting smoking feed and cigarettes according to the patient pain was a pressure-like pain 10 x 10 associated with shortness of breath denies any nausea denies any vomiting denies any sweating denies any association with activity. As per the patient pain was localized. He is also complaining of cough or dry cough associated with cold and chills. Requesting anxiety medications. In the emergency room workup was done chest x-ray was negative EKG shows sinus tachycardia pulse ox was 87% on room air, [facility] was [facility] medical consult was called for admission. Went to talk to the patient in the emergency room he confirmed to me that he is having the chest pains shortness of breath dry cough for the last few days and drinking heavy for the last couple of months. Physical Exam Vital Signs: Temp Pulse Resp BP Pulse Ox 97.9 F 81 19 144/82 H 98 11/04/18 07:50 11/04/18 07:50 11/04/18 07:50 11/04/18 07:50 11/04/18 07:50 Intake & Output 11/03/18 11/04/18 11/05/18 06:59 06:59 06:59 Intake Total 2095 1390 Balance 2095 1390 Weight 64 kg 64.1 kg General appearance: PRESENT: mild distress Head exam: PRESENT: atraumatic Eye exam: PRESENT: PERRLA Mouth exam: PRESENT: dry mucosa Neck exam: ABSENT: carotid bruit, JVD, lymphadenopathy, thyromegaly Respiratory exam: PRESENT: decreased breath sounds Cardiovascular exam: PRESENT: tachycardia GI/Abdominal exam: PRESENT: normal bowel sounds, soft. ABSENT: distended, guarding, mass, organolmegaly, rebound, tenderness Extremities exam: PRESENT: full ROM. ABSENT: calf tenderness, clubbing, pedal edema Neurological exam: PRESENT: alert, awake, oriented to person, oriented to place, oriented to time, oriented to situation, CN II-XII grossly intact. ABSENT: motor sensory deficit Psychiatric exam: PRESENT: appropriate affect, normal mood. ABSENT: homicidal ideation, suicidal ideation Results Laboratory Results: 11/04/18 06:01 11/04/18 06:01 11/04/18 11/04/18 06:01 06:01 WBC 7.6 RBC 3.77 L Hgb 11.0 L Hct 32.6 L MCV 87 MCH 29.1 MCHC 33.6 RDW 16.2 H Plt Count 198 Seg Neutrophils % Not Reportable Lymphocytes % Not Reportable Monocytes % Not Reportable Eosinophils % Not Reportable Basophils % Not Reportable Absolute Neutrophils Not Reportable Absolute Lymphocytes Not Reportable Absolute Monocytes Not Reportable Absolute Eosinophils Not Reportable Absolute Basophils Not Reportable Sodium 132.6 L Potassium 4.0 Chloride 95 L Carbon Dioxide 32 H Anion Gap 6 BUN 10 Creatinine 0.47 L Est GFR ( Amer) > 60 Est GFR (Non-Af Amer) > 60 Glucose 85 Calcium 8.3 L Magnesium 2.0 Total Bilirubin 0.3 AST 27 ALT 35 Alkaline Phosphatase 59 Total Protein 5.7 L Albumin 3.3 L 10/29/18 22:00 Blood Blood Culture - Final NO GROWTH IN 5 DAYS 10/29/18 20:05 Blood Blood Culture - Final NO GROWTH IN 5 DAYS 10/29/18 10/29/18 10/29/18 15:47 15:47 20:05 Creatine Kinase 47 L CK-MB (CK-2) 2.32 1.66 Troponin I < 0.012 < 0.012 NT-Pro-B Natriuret Pep 10/30/18 10/30/18 11/01/18 01:23 08:10 13:32 Creatine Kinase CK-MB (CK-2) 1.37 1.28 Troponin I < 0.012 < 0.012 < 0.012 NT-Pro-B Natriuret Pep 204 11/02/18 11/02/18 11/02/18 15:15 15:15 21:20 Creatine Kinase 27 L 28 L CK-MB (CK-2) 1.23 Troponin I < 0.012 NT-Pro-B Natriuret Pep 11/02/18 11/03/18 11/03/18 21:20 03:43 03:43 Creatine Kinase 26 L CK-MB (CK-2) 1.46 1.54 Troponin I < 0.012 < 0.012 NT-Pro-B Natriuret Pep Impressions: Chest X-Ray 10/29/18 15:37 IMPRESSION: No acute findings Chest/Abdomen CTA 11/02/18 00:00 IMPRESSION: No emboli visualized in the main pulmonary arteries or the segmental branches. No consolidation or pleural effusion. Qualifiers - * PATIENT BEING DISCHARGED WITH ANY OF THE FOLLOWING DIAGNOSIS: No VTE patient discharged on overlapping Therapy?: No
== END 2018-11-04 13:21 | disposition home or self-care (01) | DRG 191 ==
LOC: ER 15:31 → EH 18:08 → 4S 20:38
PROVIDERS: ADMIT Internal Medicine; ATTEND Internal Medicine
PROC: HZ2ZZZZ Detoxification Services for Substance Abuse Treatment (ICD-10-PCS; 2018-10-29)
PROC: 3E0F73Z Introduction of Anti-inflammatory into Respiratory Tract, Via Natural or Artificial Opening (ICD-10-PCS; principal; 2018-10-30)
PROC: 3E02340 Introduction of Influenza Vaccine into Muscle, Percutaneous Approach (ICD-10-PCS; 2018-11-04)
DX: J44.1 Chronic obstructive pulmonary disease with (acute) exacerbation (principal); E87.1 Hypo-osmolality and hyponatremia; F10.239 Alcohol dependence with withdrawal, unspecified; R07.89 Other chest pain; I25.10 Atherosclerotic heart disease of native coronary artery without angina pectoris; I10 Essential (primary) hypertension; E78.5 Hyperlipidemia, unspecified; F32.9 Major depressive disorder, single episode, unspecified; F41.9 Anxiety disorder, unspecified; M46.90 Unspecified inflammatory spondylopathy, site unspecified; F17.210 Nicotine dependence, cigarettes, uncomplicated; I48.91 Unspecified atrial fibrillation; F10.229 Alcohol dependence with intoxication, unspecified; M40.209 Unspecified kyphosis, site unspecified; F60.3 Borderline personality disorder; I25.2 Old myocardial infarction; Z95.5 Presence of coronary angioplasty implant and graft; Z23 Encounter for immunization; Z79.899 Other long term (current) drug therapy; Z79.82 Long term (current) use of aspirin; Z82.61 Family history of arthritis; Z82.49 Family history of ischemic heart disease and other diseases of the circulatory system; Z83.6 Family history of other diseases of the respiratory system
CPT/HCPCS: 36415; 71045; 71275; 80048; 80053; 80061; 80307; 82550; 82553; 82607; 82746; 82803; 83036; 83735; 83880; 84100; 84443; 84484; 85025; 85027; 87040; 90471; 90686; 93005; 93010; 93306; 94640; 96374; 96376; 99285; G0008; J1650; J1956; J2060; J2920; J2930; J3475; J3490; J7030; J7509; J7512; J7620

== ENCOUNTER 2018-11-05 18:34 | Emergency (ER) | payer MEDICARE, MEDICAID ==
--- NOTE | 2018-11-06 07:40 | EKG REPORT ---
SEVERITY:- BORDERLINE ECG - SINUS RHYTHM POOR R WAVE PROGRESSION ANTERIOR LEADS. : Confirmed by: Lázaro De La Garza MD 06-Nov-2018 07:40:16
== END 2018-11-05 19:30 | disposition left against medical advice (07) ==
LOC: ER 18:34
DX: Z53.21 Procedure and treatment not carried out due to patient leaving prior to being seen by health care provider (principal)
CPT/HCPCS: 93005; 93010

== ENCOUNTER 2018-11-06 10:52 | Emergency (ER) | payer MEDICARE, MEDICAID ==
[2018-11-06 10:58] VITALS: BP 138/94
[2018-11-06] MEDS ORDERED: IPRATROPIUM/ALBUTEROL 0.5-2.5 MG/3 ML AMPUL NEB ONE (11:19)
[2018-11-06] MEDS ORDERED: ALBUTEROL SULFATE 0.083% NEB 2.5 MG/3 ML AMPUL NEB ONE (11:31)
[2018-11-06] MEDS ORDERED: METHYLPREDNISOLONE INJ 125 MG/2 ML SDV IV ONE (11:32)
[2018-11-06] MEDS ORDERED: MAGNESIUM SULFATE/D5W 1 GM/100 ML RTUPB IV ONE (11:32)
--- NOTE | 2018-11-06 11:41 | ER Document Report ---
ED General - General Chief Complaint: Shortness Of Breath Stated Complaint: DIFFICULTY BREATHING Time Seen by Provider: 11/06/18 11:31 Primary Care Provider: LESLY BRYAN MD [Primary Care Provider] - Follow up as needed TRAVEL OUTSIDE OF THE [place] IN LAST 30 DAYS: No - HPI Patient complains to provider of: Difficulty breathing Notes: Patient is very well-known to this provider patient comes in multiple times for difficulty in breathing has a history of severe COPD but continues to smoke. Most time patient refuses further medical treatment at the receiving 1 breathing treatment. Today upon my evaluation patient stating that he will comply with medical treatment states that he is significantly short of breath. Patient was found walking around the hospital grounds and directed to the ER for his shortness of breath. Patient denies any recent travel antibiotics denies any pain in his chest denies fevers chills nausea vomiting diarrhea or productive cough. 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 Takes ASA now, used to be on hypertensive medications, Hx Hypercholesterolemia, Hx Hypertension Pulmonary Medical History: Reports: Hx Asthma, Hx COPD, Hx Pneumonia Denies: Hx Bronchitis Neurological Medical History: Denies: Hx Cerebrovascular Accident, Hx Seizures Endocrine Medical History: Denies: Hx Diabetes Mellitus Type 1, Hx Diabetes Mellitus Type 2, Hx Hyperthyroidism, Hx Hypothyroidism Renal/ Medical History: Denies: Hx Peritoneal Dialysis GI Medical History: Denies: Hx Cirrhosis, Hx Hepatitis Musculoskeletal Medical History: Reports Hx Arthritis - chronic spine disorder, Denies Hx Gout, Reports Hx Musculoskeletal Deformity, Reports Hx Musculoskeletal Trauma Skin Medical History: Denies Hx Eczema, Denies Hx Psoriasis Psychiatric Medical History: Reports: Hx Borderline Personality Disorder, Hx Depression Traumatic Medical History: Reports: Hx Fractures - Left rib fractures with pneumothorax requiring chest tube on 05/23/2016 Infectious Medical History: Denies: Hx Hepatitis Past Surgical History: Reports: Hx Cardiac Catheterization, Other - Abdominal hernia repair - Immunizations Immunizations up to date: Yes Hx Diphtheria, Pertussis, Tetanus Vaccination: Yes Hx Pneumococcal Vaccination: 02/22/13 Review of Systems - Review of Systems Constitutional: No symptoms reported EENT: No symptoms reported Cardiovascular: No symptoms reported Respiratory: Short of breath Gastrointestinal: No symptoms reported Genitourinary: No symptoms reported Male Genitourinary: No symptoms reported Musculoskeletal: No symptoms reported Skin: No symptoms reported Hematologic/Lymphatic: No symptoms reported Neurological/Psychological: No symptoms reported -: Yes All other systems reviewed and negative Physical Exam - Vital signs Vitals: Temp Pulse Resp BP Pulse Ox 98.0 F 77 24 H 138/94 H 98 11/06/18 10:56 11/06/18 10:56 11/06/18 10:56 11/06/18 10:56 11/06/18 10:56 Interpretation: Normal - General General appearance: Appears well, Alert - HEENT Head: Normocephalic, Atraumatic Eyes: Normal Pupils: PERRL - Respiratory Respiratory status: No respiratory distress, Tachypnea Chest status: Nontender Breath sounds: Wheezing Chest palpation: Normal - Cardiovascular Rhythm: Regular Heart sounds: Normal auscultation Murmur: No - Abdominal Inspection: Normal Distension: No distension Bowel sounds: Normal Tenderness: Nontender Organomegaly: No organomegaly - Back Back: Normal, Nontender - Extremities General upper extremity: Normal inspection, Nontender, Normal color, Normal ROM, Normal temperature General lower extremity: Normal inspection, Nontender, Normal color, Normal ROM, Normal temperature, Normal weight bearing. No: Sylvia's sign - Neurological Neuro grossly intact: Yes Cognition: Normal Orientation: AAOx4 [place] Coma Scale Eye Opening: Spontaneous [place] Coma Scale Verbal: Oriented [place] Coma Scale Motor: Obeys Commands Federico Coma Scale Total: 15 Speech: Normal Motor strength normal: LUE, RUE, LLE, RLE Sensory: Normal - Psychological Associated symptoms: Normal affect, Normal mood - Skin Skin Temperature: Warm Skin Moisture: Dry Skin Color: Normal Course - Re-evaluation Re-evalutation: 11/06/18 15:09 IV was established blood work was drawn after receiving his initial breathing treatment patient begins yelling at nursing staff refusing any further medical care. I did in the room patient states that he wants to be discharged at this time patient was given his discharge papers requesting a dose of IV steroids which was provided. Patient did not want to wait for further medical treatment or his laboratory results After the patient left the ER upon his request I did review the patient's laboratory results showing hyponatremia at 20. Patient again ANO x3 did seem to be asymptomatic has a history of hyponatremia in the past. We will try to contact the patient to let him know that he will need to possibly seek further medical treatment chest x-ray was normal - Vital Signs Vital signs: Temp Pulse Resp BP Pulse Ox 98.0 F 77 24 H 138/94 H 98 11/06/18 10:56 11/06/18 10:56 11/06/18 10:56 11/06/18 10:56 11/06/18 10:56 - Laboratory Result Diagrams: 11/06/18 11:25 11/06/18 11:25 Laboratory results interpreted by me: 11/06/18 11/06/18 11:25 11:25 RBC 4.29 L Hgb 12.4 L Hct 36.5 L RDW 16.6 H Monocytes % 17.5 H Sodium 120.2 L* Chloride 79 L BUN 6 L Creatinine 0.46 L Calcium 8.3 L Discharge - Discharge Clinical Impression: COPD exacerbation Condition: Serious Disposition: HOME, SELF-CARE Instructions: Chronic Obstructive Lung Disease ([facility]) Additional Instructions: He has been seen today for COPD exacerbation. Her vital signs not show any critical pathology. He has not stay for complete workup. You are welcome back to the ER any time to complete the workup for COPD exacerbation. I would highly recommend that you follow-up with your primary care physician and that you stop smoking. Your continued to be short of breath as well as you continue to smoke, Reyes Referrals: LESLY BRYAN MD [Primary Care Provider] - Follow up as needed
[2018-11-06 11:56] LABS: ABSOLUTE EOSINOPHILS # (AUTO) 0.1 10^3/uL (0.0-0.6); ABSOLUTE LYMPHOCYTES (AUTO) 1.5 10^3/uL (0.5-4.7); ABSOLUTE MONOCYTES (AUTO) 1.2 10^3/uL (0.1-1.4); ANION GAP 12 (5-19); BASOPHILS % (AUTO) 0.6 % (0-2); BLOOD UREA NITROGEN 6 mg/dL (7-20); CALCIUM 8.3 mg/dL (8.4-10.2); CARBON DIOXIDE 29 mmol/L (22-30); CHLORIDE 79 mmol/L (98-107); EOSINOPHILS % (AUTO) 0.9 % (0-6); GLUCOSE 76 mg/dL (75-110); HEMATOCRIT 36.5 % (37.9-51.0); HEMOGLOBIN 12.4 g/dL (13.5-17.0); LYMPHOCYTES % (AUTO) 21.9 % (13-45); MEAN CORPUSCULAR HEMOGLOBIN 28.9 pg (27.0-33.4); MEAN CORPUSCULAR VOLUME 85 fl (80-97); MONOCYTES % (AUTO) 17.5 % (3-13); POTASSIUM 4.3 mmol/L (3.6-5.0); RED BLOOD COUNT 4.29 10^6/uL (4.35-5.55); RED CELL DISTRIBUTION WIDTH 16.6 % (11.5-14.0); SEGMENTED NEUTROPHILS % (AUTO) 59.1 % (42-78); TOTAL CELLS COUNTED % (AUTO) 100 %; WHITE BLOOD COUNT 6.7 10^3/uL (4.0-10.5)
[2018-11-06 11:57] LABS: PLATELET COUNT 420 10^3/uL (150-450)
--- NOTE | 2018-11-06 12:33 | RADIOLOGY REPORT (SQ) ---
EXAM DESCRIPTION: CHEST SINGLE VIEW COMPLETED DATE/TIME: 11/06/2018 11:52 am REASON FOR STUDY: sob COMPARISON: None. EXAM PARAMETERS: NUMBER OF VIEWS: One view. TECHNIQUE: Single frontal radiographic view of the chest acquired. RADIATION DOSE: NA LIMITATIONS: None. FINDINGS: LUNGS AND PLEURA: No opacities, masses or pneumothorax. No pleural effusion. MEDIASTINUM AND HILAR STRUCTURES: No masses. Contour normal. HEART AND VASCULAR STRUCTURES: Heart normal in size. Normal vasculature. BONES: No acute findings. HARDWARE: None in the chest. OTHER: No other significant finding. IMPRESSION: NO ACUTE RADIOGRAPHIC FINDING IN THE CHEST. TECHNICAL DOCUMENTATION: JOB ID: [id number] [employer]- All Rights Reserved Reading location - IP/workstation name: [email or web address]
[2018-11-06 12:35] LABS: SODIUM 120.2 mmol/L (137-145)
== END 2018-11-06 11:46 | disposition home or self-care (01) ==
LOC: ER 10:52
DX: J44.1 Chronic obstructive pulmonary disease with (acute) exacerbation (principal); R06.02 Shortness of breath; F17.200 Nicotine dependence, unspecified, uncomplicated; I25.10 Atherosclerotic heart disease of native coronary artery without angina pectoris; I10 Essential (primary) hypertension; I25.2 Old myocardial infarction; Z79.899 Other long term (current) drug therapy
CPT/HCPCS: 36415; 71045; 80048; 83735; 85025; 99283

== ENCOUNTER 2018-11-07 02:28 | Emergency (ER) | payer MEDICARE, MEDICAID ==
[2018-11-07 02:38] VITALS: BP 142/93
[2018-11-07] MEDS ORDERED: NICOTINE 21 MG/24 HR PATCH.TD24 TD ONE (03:19)
[2018-11-07] MEDS ORDERED: IPRATROPIUM/ALBUTEROL 0.5-2.5 MG/3 ML AMPUL NEB ONE (03:19)
[2018-11-07] MEDS ORDERED: DIAZEPAM 5 MG TABLET PO ONE (03:19)
--- NOTE | 2018-11-07 03:52 | RADIOLOGY REPORT (SQ) ---
EXAM DESCRIPTION: XR CHEST 1 VIEW COMPLETED DATE/TME: 11/07/2018 03:19 CLINICAL HISTORY: 63 years, Male, sob COMPARISON: 11/06/2018 chest NUMBER OF VIEWS: 1 TECHNIQUE: Portable chest LIMITATIONS: None. FINDINGS: Heart size normal. Ectasia thoracic aorta. Osteopenia. Multiple old rib fractures bilaterally. Lungs are clear. No pneumothorax IMPRESSION: No acute cardiopulmonary process copyright 2010 [employer]- All Rights Reserved
--- NOTE | 2018-11-07 03:53 | ER Document Report ---
ED General - General Chief Complaint: Breathing Difficulty Stated Complaint: DIFFICULTY BREATHING Time Seen by Provider: 11/07/18 02:55 Primary Care Provider: LESLY BRYAN MD [Primary Care Provider] - Follow up as needed Notes: Patient is a 63-year-old male very well-known to me, chronic alcohol and tobacco abuser, COPD, presents with statements that he is feeling short of breath. Patient is seen at the nursing station, yelling at staff. I redirected him to his room. Patient states that he feels like he is having severe anxiety, has not drank today, feels like he is also withdrawing. He is asking for something to treat his anxiety and would like to go home. States that he usually controls the symptoms of alcohol. Nothing has worsened his symptoms since onset. States he feels somewhat short of breath but not as bad as usual. Has not seen his primary doctor regarding his issues. TRAVEL OUTSIDE OF THE [place] 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 Takes ASA now, used to be on hypertensive medications, Hx Hypercholesterolemia, Hx Hypertension Pulmonary Medical History: Reports: Hx Asthma, Hx COPD, Hx Pneumonia Denies: Hx Bronchitis Neurological Medical History: Denies: Hx Cerebrovascular Accident, Hx Seizures Endocrine Medical History: Denies: Hx Diabetes Mellitus Type 1, Hx Diabetes Mellitus Type 2, Hx Hyperthyroidism, Hx Hypothyroidism Renal/ Medical History: Denies: Hx Peritoneal Dialysis GI Medical History: Denies: Hx Cirrhosis, Hx Hepatitis Musculoskeletal Medical History: Reports Hx Arthritis - chronic spine disorder, Denies Hx Gout, Reports Hx Musculoskeletal Deformity, Reports Hx Musculoskeletal Trauma Skin Medical History: Denies Hx Eczema, Denies Hx Psoriasis Psychiatric Medical History: Reports: Hx Borderline Personality Disorder, Hx Depression Traumatic Medical History: Reports: Hx Fractures - Left rib fractures with pneumothorax requiring chest tube on 05/23/2016 Infectious Medical History: Denies: Hx Hepatitis Past Surgical History: Reports: Hx Cardiac Catheterization, Other - Abdominal hernia repair - Immunizations Immunizations up to date: Yes Hx Diphtheria, Pertussis, Tetanus Vaccination: Yes Hx Pneumococcal Vaccination: 02/22/13 Review of Systems - Review of Systems Notes: Constitutional: Negative for fever. HENT: Negative for sore throat. Eyes: Negative for visual changes. Cardiovascular: Negative for chest pain. Respiratory: Positive for shortness of breath. Gastrointestinal: Negative for abdominal pain, vomiting or diarrhea. Genitourinary: Negative for dysuria. Musculoskeletal: Negative for back pain. Skin: Negative for rash. Neurological: Negative for headaches, weakness or numbness. 10 point ROS negative except as marked above and in HPI. Physical Exam - Vital signs Vitals: Temp Pulse Resp BP Pulse Ox 97.8 F 86 24 H 142/93 H 93 11/07/18 02:32 11/07/18 02:32 11/07/18 02:32 11/07/18 02:32 11/07/18 02:32 Interpretation: Normal Notes: PHYSICAL EXAMINATION: GENERAL: Appears much older than stated age. Highly anxious but in no acute distress HEAD: Atraumatic, normocephalic. EYES: Pupils equal round and reactive to light, extraocular movements intact, sclera anicteric, conjunctiva are normal. ENT: nares patent, oropharynx clear without exudates. Moist mucous membranes. NECK: Normal range of motion, supple without lymphadenopathy LUNGS: Breath sounds clear to auscultation bilaterally and equal. Very faint end expiratory wheezing HEART: Regular rate and rhythm without murmurs ABDOMEN: Soft, nontender, normoactive bowel sounds. No guarding, no rebound. No masses appreciated. EXTREMITIES: Normal range of motion, no pitting or edema. No cyanosis. NEUROLOGICAL: No focal neurological deficits. Moves all extremities spontaneously and on command. PSYCH: Anxious, tearful SKIN: Warm, Dry, normal turgor, no rashes or lesions noted. Course - Re-evaluation Re-evalutation: 11/07/18 03:46 Patient is a 63-year-old male very well-known to me who presents complaining of difficulty breathing. The patient appears to be having an acute anxiety reaction, tremulous, hyperventilating, stating he feels like he needs help. Patient states that he has not been drinking, feels like he has also been a component of withdrawal. Patient is noted to be saturating 98% on room air, no tachypnea, no retractions and actually has a markedly better lung examination then when I have listened to him many times in the past. Patient had significant improvement with a single nebulizer in the dorsal oral diazepam. Chest x-ray unchanged from previous. No indication for labs. EKG unremarkable. Patient will be discharged to follow-up with his primary care physician. We have reviewed return precautions and he is in agreement. - Vital Signs Vital signs: Temp Pulse Resp BP Pulse Ox 97.8 F 86 24 H 142/93 H 97 11/07/18 02:32 11/07/18 02:32 11/07/18 02:32 11/07/18 02:32 11/07/18 03:00 - Diagnostic Test Radiology reviewed: Image reviewed, Reports reviewed Radiology results interpreted by me: 11/07/18 03:46 Chest x-ray: No acute infiltrate Discharge - Discharge Clinical Impression: Anxiety reaction, Tobacco abuse COPD (chronic obstructive pulmonary disease) Qualifiers: COPD type: unspecified COPD Qualified Code(s): J44.9 - Chronic obstructive pulmonary disease, unspecified Condition: Stable Disposition: HOME, SELF-CARE Additional Instructions: You were seen for COPD and anxiety. Your symptoms improved with treatment here in the emergency department. However, it is very important that you return to the emergency department immediately if you began to have worsening difficulty breathing that does not respond to your normal home nebulizers. Please also follow closely with your primary care physician. You should eturn to emergency department if you develop fever greater than 101, persistent cough, persistent vomiting, pass out, or any other symptoms that are concerning to you. Referrals: LESLY BRYAN MD [Primary Care Provider] - Follow up as needed
== END 2018-11-07 04:07 | disposition home or self-care (01) ==
LOC: ER 02:28
DX: F41.1 Generalized anxiety disorder (principal); J44.9 Chronic obstructive pulmonary disease, unspecified; F17.200 Nicotine dependence, unspecified, uncomplicated; I25.10 Atherosclerotic heart disease of native coronary artery without angina pectoris; E78.00 Pure hypercholesterolemia, unspecified; I10 Essential (primary) hypertension; I25.2 Old myocardial infarction; Z79.82 Long term (current) use of aspirin
CPT/HCPCS: 94640; 99283; 71045; A9270 ×2; J7620

== ENCOUNTER 2018-11-07 09:18 | Emergency (ER) | payer MEDICARE, MEDICAID ==
[2018-11-07] MEDS ORDERED: LORAZEPAM 1 MG TABLET PO ONE (10:24)
[2018-11-07] MEDS ORDERED: IPRATROPIUM/ALBUTEROL 0.5-2.5 MG/3 ML AMPUL NEB ONE (10:24)
[2018-11-07] MEDS ORDERED: METHYLPREDNISOLONE INJ 125 MG/2 ML SDV IV ONE (10:24)
--- NOTE | 2018-11-07 10:27 | ER Document Report ---
ED Medical Screen (RME) - General Chief Complaint: Shortness Of Breath Stated Complaint: SHORTNESS OF BREATH Time Seen by Provider: 11/07/18 10:20 Primary Care Provider: LESLY BRYAN MD [Primary Care Provider] - Follow up as needed Notes: Patient is a 63-year-old male with COPD that presents to the emergency department for chief complaint of chest pain, shortness of breath and anxiety. Patient states that his nebulizer machine broke yesterday, came to the emergency department and then left and eloped from the department, he states that his breathing is worse today, and he is also has some mild chest pain. ROS: Other than noted above, the 12 point review of systems was reviewed with the patient and were negative, all pertinent findings are included in the HPI. PHYSICAL EXAMINATION: Vital signs reviewed. GENERAL: Disheveled appearing male, however not in acute respiratory distress HEAD: Atraumatic, normocephalic. EYES: Pupils equal round extraocular movements intact, conjunctiva are normal. ENT: Nares patent NECK: Normal range of motion CV: Heart regular rate and rhythm LUNGS: No respiratory distress, bilateral wheezing noted on exam Musculoskeletal: Normal range of motion NEUROLOGICAL: Normal speech PSYCH: Normal mood, normal affect. MDM: Patient seen and examined for rapid initial assessment. Vital signs reviewed. A comprehensive ED assessment and evaluation of the patient, analysis of test results and completion of the medical decision making process will be conducted by additional ED providers. *Note is created using voice recognition software and may contain spelling, syntax or grammatical errors. TRAVEL OUTSIDE OF THE [place] 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 Takes ASA now, used to be on hypertensive medications, Hx Hypercholesterolemia, Hx Hypertension Pulmonary Medical History: Reports: Hx Asthma, Hx COPD, Hx Pneumonia Denies: Hx Bronchitis Neurological Medical History: Denies: Hx Cerebrovascular Accident, Hx Seizures Endocrine Medical History: Denies: Hx Diabetes Mellitus Type 1, Hx Diabetes Fifi litus Type 2, Hx Hyperthyroidism, Hx Hypothyroidism Renal/ Medical History: Denies: Hx Peritoneal Dialysis GI Medical History: Denies: Hx Cirrhosis, Hx Hepatitis Musculoskeltal Medical History: Reports Hx Arthritis - chronic spine disorder, Denies Hx Gout, Reports Hx Musculoskeletal Deformity, Reports Hx Musculoskeletal Trauma Skin Medical History: Denies Hx Eczema, Denies Hx Psoriasis Psychiatric Medical History: Reports: Hx Borderline Personality Disorder, Hx Depression Traumatic Medical History: Reports: Hx Fractures - Left rib fractures with pneumothorax requiring chest tube on 05/23/2016 Infectious Medical History: Denies: Hx Hepatitis Past Surgical History: Reports: Hx Cardiac Catheterization, Other - Abdominal hernia repair - Immunizations Immunizations up to date: Yes Hx Diphtheria, Pertussis, Tetanus Vaccination: Yes History of Influenza Vaccine for 06/2017 - 11/2017 Season: Yes Influenza Administration Date for 06/2017 - 11/2017 Season: 06/16/17 Physical Exam - Vital signs Vitals: Temp Pulse Resp BP Pulse Ox 98.2 F 84 22 H 159/78 H 96 11/07/18 09:31 11/07/18 09:31 11/07/18 09:31 11/07/18 09:31 11/07/18 09:31 Course - Vital Signs Vital signs: Temp Pulse Resp BP Pulse Ox 98.2 F 84 22 H 159/78 H 96 11/07/18 09:31 11/07/18 09:31 11/07/18 09:31 11/07/18 09:31 11/07/18 09:31 Doctor's Discharge - Discharge Referrals: LESLY BRYAN MD [Primary Care Provider] - Follow up as needed
--- NOTE | 2018-11-07 11:00 | RADIOLOGY REPORT (SQ) ---
EXAM DESCRIPTION: CHEST SINGLE VIEW COMPLETED DATE/TIME: 11/07/2018 10:50 am REASON FOR STUDY: chest pain, sob COMPARISON: 11/07/2018 EXAM PARAMETERS: NUMBER OF VIEWS: One view. TECHNIQUE: Single frontal radiographic view of the chest acquired. RADIATION DOSE: NA LIMITATIONS: None. FINDINGS: LUNGS AND PLEURA: No opacities, masses or pneumothorax. No pleural effusion. MEDIASTINUM AND HILAR STRUCTURES: No masses. Contour normal. HEART AND VASCULAR STRUCTURES: Heart normal in size. Normal vasculature. BONES: The osseous structures are stable in appearance. HARDWARE: None in the chest. OTHER: No other significant finding. IMPRESSION: 1. No significant interval changes since the previous examination dated 11/07/2018. No acute findings. TECHNICAL DOCUMENTATION: JOB ID: [id number] [employer]- All Rights Reserved Reading location - IP/workstation name: [email or web address]
[2018-11-07 11:26] LABS: HEMATOCRIT 36.7 % (37.9-51.0); HEMOGLOBIN 12.8 g/dL (13.5-17.0); MEAN CORPUSCULAR HEMOGLOBIN 29.3 pg (27.0-33.4); MEAN CORPUSCULAR HGB CONC 34.9 g/dL (32.0-36.0); MEAN CORPUSCULAR VOLUME 84 fl (80-97); PLATELET COUNT 405 10^3/uL (150-450); RED BLOOD COUNT 4.36 10^6/uL (4.35-5.55); RED CELL DISTRIBUTION WIDTH 16.4 % (11.5-14.0); WHITE BLOOD COUNT 6.5 10^3/uL (4.0-10.5)
[2018-11-07 11:48] LABS: ALANINE AMINOTRANSFERASE 39 U/L (21-72); ALBUMIN 4.7 g/dL (3.5-5.0); ALKALINE PHOSPHATASE 109 U/L (38-126); ANION GAP 14 (5-19); ASPARTATE AMINO TRANSFERASE 49 U/L (17-59); BILIRUBIN,DIRECT 0.2 mg/dL (0.0-0.4); BILIRUBIN,TOTAL 0.7 mg/dL (0.2-1.3); BLOOD UREA NITROGEN 4 mg/dL (7-20); CALCIUM 8.9 mg/dL (8.4-10.2); CARBON DIOXIDE 27 mmol/L (22-30); CHLORIDE 81 mmol/L (98-107); POTASSIUM 4.4 mmol/L (3.6-5.0); SODIUM 122.1 mmol/L (137-145); TOTAL PROTEIN 7.1 g/dL (6.3-8.2)
[2018-11-07 11:49] LABS: GLUCOSE 61 mg/dL (75-110)
[2018-11-07 11:59] LABS: ABSOLUTE LYMPHOCYTES# (MANUAL) 0.7 10^3/uL (0.5-4.7); ABSOLUTE MONOCYTES # (MANUAL) 1.1 10^3/uL (0.1-1.4); ABSOLUTE NEUTROPHILS# (MANUAL) 4.7 10^3/uL (1.7-8.2); BASOPHILS % (MANUAL) 1 % (0-2); EOSINOPHILS % (MANUAL) 0 % (0-6); LYMPHOCYTES % (MANUAL) 10 % (13-45); MONOCYTES % (MANUAL) 17 % (3-13); SEGMENTED NEUTROPHILS % (MAN) 72 % (42-78); TOTAL CELLS COUNTED 100
[2018-11-07 12:00] LABS: ANISOCYTOSIS 1+; OVALOCYTES SLIGHT; PLATELET COMMENT ADEQUATE; POIKILOCYTOSIS SLIGHT
[2018-11-07 12:19] LABS: ALCOHOL 95 mg/dL (NONE DETECTED)
[2018-11-07] MEDS ORDERED: ALBUTEROL SULFATE HFA (90 MCG/PUFF) 8 GM MDI (1 MDI/ER DISP) IH ONE (12:32)
[2018-11-07 12:38] VITALS: BP 132/80
--- NOTE | 2018-11-07 13:14 | EKG REPORT ---
SEVERITY:- ABNORMAL ECG - SINUS TACHYCARDIA CONSIDER ANTERIOR INFARCT : Confirmed by: Lázaro De La Garza MD 07-Nov-2018 13:13:25
== END 2018-11-07 12:44 | disposition home or self-care (01) ==
LOC: ER 09:18
DX: R06.02 Shortness of breath (principal); R07.9 Chest pain, unspecified; I25.10 Atherosclerotic heart disease of native coronary artery without angina pectoris; I25.2 Old myocardial infarction; I10 Essential (primary) hypertension; Z79.82 Long term (current) use of aspirin; E78.00 Pure hypercholesterolemia, unspecified
CPT/HCPCS: 93005; 94640; 99285; 96374; 36415; 80307; 85025; 80053; 84484; 71045; 93010; J2930; A9270 ×2; J3490; J7620

== ENCOUNTER 2018-11-08 17:34 | Inpatient (IN) | payer MEDICARE, MEDICAID ==
[2018-11-08] MEDS ORDERED: NORMAL SALINE 500 ML IV ONE (18:10)
[2018-11-08] MEDS ORDERED: IPRATROPIUM/ALBUTEROL 0.5-2.5 MG/3 ML AMPUL NEB ONE (18:10)
--- NOTE | 2018-11-08 18:12 | ER Document Report ---
ED Medical Screen (RME) - General Chief Complaint: Chest Pain Stated Complaint: SOB, CHEST PAIN Time Seen by Provider: 11/08/18 18:04 Primary Care Provider: LESLY BRYAN MD [Primary Care Provider] - Follow up as needed Notes: Patient is a 63-year-old male, history of alcoholism, and COPD that presents to the emergency department for chief complaint of chest pain and shortness of breath. Patient has had multiple visits recently in the emergency department, prior visits reviewed, he was noted to have significant hyponatremia, the patient continues to leave AGAINST MEDICAL ADVICE, at this time he appears int oxicated, is calling out, and it is significantly altered from his visit yesterday. Unable to obtain significant history at this time. ROS: Other than noted above, the 12 point review of systems was reviewed with the patient and were negative, all pertinent findings are included in the HPI. PHYSICAL EXAMINATION: Vital signs reviewed. GENERAL: Disheveled male, appears intoxicated HEAD: Atraumatic, normocephalic. EYES: Pupils equal round extraocular movements intact, conjunctiva are normal. ENT: Nares patent NECK: Normal range of motion CV: Heart regular rate and rhythm LUNGS: Bilateral wheezing noted bilateral Musculoskeletal: No edema PSYCH: Patient is altered, calling out for help MDM: Patient seen and examined for rapid initial assessment. Vital signs reviewed. A comprehensive ED assessment and evaluation of the patient, analysis of test results and completion of the medical decision making process will be conducted by additional ED providers. *Note is created using voice recognition software and may contain spelling, syntax or grammatical errors. TRAVEL OUTSIDE OF THE [place] 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 Takes ASA now, used to be on hypertensive medications, Hx Hypercholesterolemia, Hx Hypertension Pulmonary Medical History: Reports: Hx Asthma, Hx COPD, Hx Pneumonia Denies: Hx Bronchitis Neurological Medical History: Denies: Hx Cerebrovascular Accident, Hx Seizures Endocrine Medical History: Denies: Hx Diabetes Mellitus Type 1, Hx Diabetes Mellitus Type 2, Hx Hyperthyroidism, Hx Hypothyroidism Renal/ Medical History: Denies: Hx Peritoneal Dialysis GI Medical History: Denies: Hx Cirrhosis, Hx Hepatitis Musculoskeltal Medical History: Reports Hx Arthritis - chronic spine disorder, Denies Hx Gout, Reports Hx Musculoskeletal Deformity, Reports Hx Musculoskeletal Trauma Skin Medical History: Denies Hx Eczema, Denies Hx Psoriasis Psychiatric Medical History: Reports: Hx Borderline Personality Disorder, Hx Depression Traumatic Medical History: Reports: Hx Fractures - Left rib fractures with pneumothorax requiring chest tube on 05/23/2016 Infectious Medical History: Denies: Hx Hepatitis Past Surgical History: Reports: Hx Cardiac Catheterization, Hx Cardiac Surgery - stents, Other - Abdominal hernia repair - Immunizations Immunizations up to date: Yes Hx Diphtheria, Pertussis, Tetanus Vaccination: Yes History of Influenza Vaccine for 06/2017 - 11/2017 Season: Yes Influenza Administration Date for 06/2017 - 11/2017 Season: 06/16/17 Physical Exam - Vital signs Vitals: Temp Pulse Resp BP Pulse Ox 97.7 F 75 24 H 112/56 L 92 11/08/18 17:48 11/08/18 17:48 11/08/18 17:48 11/08/18 17:48 11/08/18 17:48 Course - Vital Signs Vital signs: Temp Pulse Resp BP Pulse Ox 97.7 F 75 24 H 112/56 L 92 11/08/18 17:48 11/08/18 17:48 11/08/18 17:48 11/08/18 17:48 11/08/18 17:48 Doctor's Discharge - Discharge Referrals: LESLY BRYAN MD [Primary Care Provider] - Follow up as needed
[2018-11-08 18:47] LABS: ABSOLUTE LYMPHOCYTES (AUTO) 0.9 10^3/uL (0.5-4.7); ABSOLUTE MONOCYTES (AUTO) 0.9 10^3/uL (0.1-1.4); ABSOLUTE NEUT (AUTO) 4.9 10^3/uL (1.7-8.2); BASOPHILS % (AUTO) 0.7 % (0-2); EOSINOPHILS % (AUTO) 0.2 % (0-6); HEMATOCRIT 34.3 % (37.9-51.0); HEMOGLOBIN 11.9 g/dL (13.5-17.0); LYMPHOCYTES % (AUTO) 13.5 % (13-45); MEAN CORPUSCULAR HEMOGLOBIN 29.2 pg (27.0-33.4); MEAN CORPUSCULAR HGB CONC 34.6 g/dL (32.0-36.0); MEAN CORPUSCULAR VOLUME 84 fl (80-97); RED BLOOD COUNT 4.06 10^6/uL (4.35-5.55); RED CELL DISTRIBUTION WIDTH 16.7 % (11.5-14.0); SEGMENTED NEUTROPHILS % (AUTO) 72.6 % (42-78); TOTAL CELLS COUNTED % (AUTO) 100 %; WHITE BLOOD COUNT 6.8 10^3/uL (4.0-10.5)
[2018-11-08 19:05] LABS: PLATELET COUNT 381 10^3/uL (150-450)
[2018-11-08 19:07] LABS: BLOOD UREA NITROGEN 2 mg/dL (7-20); CALCIUM 7.4 mg/dL (8.4-10.2); CARBON DIOXIDE 27 mmol/L (22-30); CHLORIDE 73 mmol/L (98-107); GLUCOSE 80 mg/dL (75-110); POTASSIUM 4.3 mmol/L (3.6-5.0)
[2018-11-08 19:09] LABS: ANION GAP 14 (5-19)
[2018-11-08 19:13] LABS: SODIUM 114.3 mmol/L (137-145)
[2018-11-08] MEDS ORDERED: PROMETHAZINE HCL INJ 25 MG/1 ML VIAL IM ONE (20:21)
--- NOTE | 2018-11-08 20:26 | ER Document Report ---
ED General - General Chief Complaint: Chest Pain Stated Complaint: SOB, CHEST PAIN Time Seen by Provider: 11/08/18 18:04 Notes: Patient is a 63-year-old male that comes to the emergency department for chief complaint of shortness of breath and chest pain per triage note, however on my evaluation patient tells me that he is drunk, he is "going to ", and he needs something "for his nerves". He denies any injuries or locations of pain at this time. Patient is oriented to his location, he thinks it is the year 1918. He has a history of alcohol abuse, COPD with tobacco abuse, CAD. TRAVEL OUTSIDE OF THE [place] 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 Takes ASA now, used to be on hypertensive medications, Hx Hypercholesterolemia, Hx Hypertension Pulmonary Medical History: Reports: Hx Asthma, Hx COPD, Hx Pneumonia Denies: Hx Bronchitis Neurological Medical History: Denies: Hx Cerebrovascular Accident, Hx Seizures Endocrine Medical History: Denies: Hx Diabetes Mellitus Type 1, Hx Diabetes Mellitus Type 2, Hx Hyperthyroidism, Hx Hypothyroidism Renal/ Medical History: Denies: Hx Peritoneal Dialysis GI Medical History: Denies: Hx Cirrhosis, Hx Hepatitis Musculoskeletal Medical History: Reports Hx Arthritis - chronic spine disorder, Denies Hx Gout, Reports Hx Musculoskeletal Deformity, Reports Hx Musculoskeletal Trauma Skin Medical History: Denies Hx Eczema, Denies Hx Psoriasis Psychiatric Medical History: Reports: Hx Borderline Personality Disorder, Hx Depression Traumatic Medical History: Reports: Hx Fractures - Left rib fractures with pneumothorax requiring chest tube on 05/23/2016 Infectious Medical History: Denies: Hx Hepatitis Past Surgical History: Reports: Hx Cardiac Catheterization, Hx Cardiac Surgery - stents, Other - Abdominal hernia repair - Immunizations Immunizations up to date: Yes Hx Diphtheria, Pertussis, Tetanus Vaccination: Yes Hx Pneumococcal Vaccination: 02/22/13 Review of Systems - Review of Systems Constitutional: See HPI EENT: No symptoms reported Cardiovascular: See HPI Respiratory: See HPI Gastrointestinal: No symptoms reported Genitourinary: No symptoms reported Male Genitourinary: No symptoms reported Musculoskeletal: No symptoms reported Skin: No symptoms reported Hematologic/Lymphatic: No symptoms reported Neurological/Psychological: See HPI Physical Exam - Vital signs Vitals: Temp Pulse Resp BP Pulse Ox 97.7 F 75 24 H 112/56 L 92 11/08/18 17:48 11/08/18 17:48 11/08/18 17:48 11/08/18 17:48 11/08/18 17:48 - Notes Notes: GENERAL: Flushed, slurring his words, occasionally yelling loudly, appears intoxicated HEAD: Normocephalic, atraumatic. EYES: Pupils equal, round, and reactive to light. Extraocular movements intact. ENT: Oral mucosa dry, tongue midline. Oropharynx unremarkable. Airway patent. Nares patent, no nasal septal hematoma, TM's intact. NECK: Full range of motion. Supple. Trachea midline. LUNGS: decreased bilaterally, no wheezes, rales, or rhonchi. No respiratory distress. HEART: Regular rate and rhythm. No murmur ABDOMEN: Soft, non-tender. Non-distended. Bowel sounds present in all 4 quadrants. GENITOURINARY: Deferred EXTREMITIES: Moves all 4 extremities spontaneously. No edema, normal radial and dorsalis pedis pulses bilaterally. No cyanosis. BACK: no cervical, thoracic, lumbar midline tenderness. No saddle anesthesia, normal distal neurovascular exam. NEUROLOGICAL: Slurred speech, oriented only to place, follows commands well, GCS of 15 [cranial nerves II through XII grossly intact]. SKIN: Bruises, scabs, and scuff crowe over both arms, mainly the forearms. Otherwise unremarkable. Course - Re-evaluation Re-evalutation: Vital signs at approximately patient's baseline with mid to lower 90s oxygen saturation, unremarkable blood pressure, unremarkable heart rate, no fever. Patient follows directions and is cooperative, oriented to place only. Confused below his baseline from when I have seen him in the past. IVC paperwork already filled out by triage provider based on patient's laboratory workup with sign ificant hyponatremia at 114 and desire to leave. I see no sign of head injury, patient has old bruises and scabs to his arms but otherwise his examination is unremarkable. Decreased breath sounds but at patient's baseline, I have seen this patient before frequently. He is not tachycardic, hypoxic, or hypotensive. No fever. He is cooperative with my exam. Patient repeatedly tells me he needs something "to calm down", patient was given IM Phenergan, after this he rested peacefully. Patient was already placed on IVC paperwork by triage physician because he was threatening to leave and he had abnormal labs. CBC unremarkable. Chemistry showing marked hyponatremia with sodium of 114. EKG with no T wave inversions or ST segment changes in consecutive leads. Chest x-ray unremarkable. Troponin is negative. Because of patient's confusion, intoxication, and hyponatremia I will discussed with hospitalist for admission. Discussed with Dr. Nicole. 11/08/[address] Santana, hospitalist, patient accepted to telemetry full admission. Patient did state agreement with this plan. - Vital Signs Vital signs: Temp Pulse Resp BP Pulse Ox 98.2 F 87 20 129/71 H 92 11/09/18 01:50 11/09/18 01:50 11/09/18 01:50 11/09/18 01:50 11/09/18 01:50 - Laboratory Result Diagrams: 11/08/18 18:31 11/08/18 18:31 Laboratory results interpreted by me: 11/08/18 11/08/18 18:31 18:31 RBC 4.06 L Hgb 11.9 L Hct 34.3 L RDW 16.7 H Sodium 114.3 L* Chloride 73 L BUN 2 L Creatinine 0.38 L Calcium 7.4 L Discharge - Discharge Clinical Impression: Hyponatremia Alcohol intoxication Qualifiers: Complication of substance-induced condition: with unspecified complication Qualified Code(s): F10.929 - Alcohol use, unspecified with intoxication, unspecified Condition: Fair Disposition: ADMITTED INPATIENT Admitting Provider: Hospitalist Unit Admitted: Telemetry
[2018-11-08] MEDS: NORMAL SALINE 1000 ML 1,000 ML IV PRN (20:56)
--- NOTE | 2018-11-08 21:28 | RADIOLOGY REPORT (SQ) ---
EXAM DESCRIPTION: XR CHEST 1 VIEW COMPLETED DATE/TME: 11/08/2018 20:30 CLINICAL HISTORY: 63 years, Male, chest pain, shortness of breath COMPARISON: 11/07/2018 chest NUMBER OF VIEWS: 1 TECHNIQUE: Portable chest LIMITATIONS: None. FINDINGS: Heart size is normal. Osteopenia. Old left rib fractures. Lungs are clear. No pneumothorax IMPRESSION: No acute cardiopulmonary process copyright 2010 [email or web address]- All Rights Reserved
--- NOTE | 2018-11-08 21:58 | EKG REPORT ---
SEVERITY:- ABNORMAL ECG - SINUS RHYTHM PROBABLE LEFT VENTRICULAR HYPERTROPHY BORDERLINE INFERIOR Q WAVES ANTERIOR ST ELEVATION, PROBABLY DUE TO LVH : Confirmed by: Lázaro De La Garza MD 08-Nov-2018 21:57:47
[2018-11-08] MEDS ORDERED: NORMAL SALINE 1000 ML 1,000 ML IV PRN (22:33)
[2018-11-08] MEDS ORDERED: ONDANSETRON 4 MG TAB.RAPDIS PO PRN (22:33)
[2018-11-08] MEDS ORDERED: MAG HYDROX/AL HYDROX/SIMETH SUSP 30 ML UDCUP PO PRN (22:33)
[2018-11-08] MEDS ORDERED: ONDANSETRON HCL INJ/PF 4 MG/2 ML SDV IV PRN (22:33)
[2018-11-08] MEDS ORDERED: MAGNESIUM HYDROXIDE SUSP 30 ML UDCUP PO PRN (22:33)
[2018-11-08] MEDS ORDERED: CHLORPROMAZINE HCL INJ 25 MG/1 ML AMPULE IV PRN (22:47)
[2018-11-08] MEDS ORDERED: DIAZEPAM INJ 10 MG/2 ML DISP.SYRIN IV PRN (22:47)
[2018-11-08] MEDS ORDERED: FAMOTIDINE 20 MG TABLET PO ONE (23:30)
[2018-11-08] MEDS ORDERED: SODIUM BICARBONATE 650 MG TABLET PO ONE (23:30)
[2018-11-08] MEDS ORDERED: ATORVASTATIN CALCIUM 40 MG TABLET PO ONE (23:30)
[2018-11-09 00:19] LABS: APPEARANCE,URINE CLEAR; BILIRUBIN,URINE NEGATIVE (NEGATIVE); COLOR,URINE STRAW; GLUCOSE, URINE NEGATIVE (NEGATIVE); KETONES,URINE NEGATIVE (NEGATIVE); LEUKOCYTE ESTERASE,URINE NEGATIVE (NEGATIVE); NITRITE,URINE NEGATIVE (NEGATIVE); PROTEIN,URINE NEGATIVE (NEGATIVE); URINE SPECIFIC GRAVITY 1.005; UROBILINOGEN,URINE NEGATIVE mg/dL (<2.0)
[2018-11-09 00:36] LABS: URINE AMPHETAMINES SCREEN NEGATIVE; URINE BARBITURATES SCREEN NEGATIVE; URINE BENZODIAZEPINES SCREEN NEGATIVE; URINE COCAINE SCREEN NEGATIVE; URINE MARIJUANA (THC) SCREEN NEGATIVE; URINE METHADONE SCREEN NEGATIVE; URINE PHENCYCLIDINE SCREEN NEGATIVE
[2018-11-09] MEDS: DIAZEPAM 5 MG TABLET PO SCH ×6 (01:02→22:52)
[2018-11-09 03:37] LABS: HEMATOCRIT 35.2 % (37.9-51.0); HEMOGLOBIN 12.1 g/dL (13.5-17.0); MEAN CORPUSCULAR HGB CONC 34.5 g/dL (32.0-36.0); MEAN CORPUSCULAR VOLUME 84 fl (80-97); PLATELET COUNT 290 10^3/uL (150-450); RED BLOOD COUNT 4.18 10^6/uL (4.35-5.55); RED CELL DISTRIBUTION WIDTH 16.8 % (11.5-14.0)
[2018-11-09 03:46] LABS: ALANINE AMINOTRANSFERASE 44 U/L (21-72); ALBUMIN 4.2 g/dL (3.5-5.0); ALKALINE PHOSPHATASE 84 U/L (38-126); ANION GAP 13 (5-19); ASPARTATE AMINO TRANSFERASE 63 U/L (17-59); BILIRUBIN,DIRECT 0.2 mg/dL (0.0-0.4); BILIRUBIN,TOTAL 0.4 mg/dL (0.2-1.3); BLOOD UREA NITROGEN 3 mg/dL (7-20); CALCIUM 8.9 mg/dL (8.4-10.2); CARBON DIOXIDE 25 mmol/L (22-30); CHLORIDE 91 mmol/L (98-107); CHOLESTEROL 192.72 mg/dL (0-200); GLUCOSE 96 mg/dL (75-110); PHOSPHORUS 4.1 mg/dL (2.5-4.5); POTASSIUM 4.7 mmol/L (3.6-5.0); SODIUM 128.7 mmol/L (137-145); TOTAL PROTEIN 6.7 g/dL (6.3-8.2); TRIGLYCERIDES 39 mg/dL (<150)
[2018-11-09 03:47] LABS: WHITE BLOOD COUNT 2.5 10^3/uL (4.0-10.5)
[2018-11-09 03:56] LABS: CREATINE KINASE MB 6.57 ng/mL (<4.55); DIRECT LDL 51 mg/dL (<100)
[2018-11-09 03:57] LABS: TROPONIN I < 0.012 ng/mL
--- NOTE | 2018-11-09 04:38 | PDOC H&P ---
History of Present Illness Admission Date/PCP: 11/08/18 22:05 LESLY BRYAN MD Patient complains of: Anxiety, chest pain, dyspnea History of Present Illness: LEIF NUÑEZ is a 63 year old male who presented to the emergency department acutely intoxicated with initial chief complaint of dyspnea and chest pain which later became a feeling that he was going to the highway followed by a feeling that he needed something for his nerves followed by a feeling that he should just leave AGAINST MEDICAL ADVICE and subsequent involuntary committal hold being placed. He was obviously intoxicated in the emergency room and made occasional mistakes on orientation related questions however generally he was correct with his responses to most questions for routine orientation to person place and time given his level of intoxication. Upon my questioning the patient states that he feels fine except he needs to urinate. He denies chest pain, dyspnea, feeling like he is going to and does not feel like he is needing anything for his nerves at the present time although he had a recent dose of Valium. He admits a long history of numerous similar episodes due to his chronic alcoholism and continuous consumption of alcohol. He was found to have a significant hyponatremia at 114. Patient will therefore be admitted hospital for treatment of his hyponatremia, further evaluation as appropriate and appropriate alcohol withdrawal detoxification. 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 Takes ASA now, used to be on hypertensive medications, Hyperlipidema, Hypertension Pulmonary Medical History: Reports: Asthma, Chronic Obstructive Pulmonary Disease (COPD), Pneumonia Denies: Bronchitis EENT Medical History: Reports: None Neurological Medical History: Denies: Hemorrhagic CVA, Ischemic CVA, Seizures Endocrine Medical History: Denies: Diabetes Mellitus Type 1, Diabetes Mellitus Type 2, Hyperthyroidism, Hypothyroidism Renal/ Medical History: Denies: Chronic Kidney Disease, Nephrolithiasis Malignancy Medical History: Reports: None GI Medical History: Denies: Cirrhosis, Hepatitis Musculoskeltal Medical History: Reports: Arthritis - chronic spine disorder Denies: Gout Skin Medical History: Denies: Eczema, Psoriasis Psychiatric Medical History: Reports: Alcohol Dependency, Depression, Substance Abuse, Tobacco Dependency Traumatic Medical History: Reports: None Hematology: Denies: Anemia, Bleeding Tendencies Infectious Medical History: Reports: None Past Surgical History Past Surgical History: Reports: Cardiac Catheterization, Other - Abdominal hernia repair Social History Smoking Status: Unknown if Ever Smoked Frequency of Alcohol Use: Heavy Hx Recreational Drug Use: No Drugs: None Hx Prescription Drug Abuse: Yes - Opiate and benzodiazepine - Advance Directive Resuscitation Status: Full Code Surrogate healthcare decision maker:: His son Casimiro Family History Family History: Arthritis, CAD, COPD Parental Family History Reviewed: Yes Children Family History Reviewed: No Sibling(s) Family History Reviewed.: Yes Medication/Allergy Home Medications: Clopidogrel Bisulfate [Plavix 75 mg Tablet] 75 mg PO DAILY 05/07/18 Lisinopril 20 mg PO DAILY 05/07/18 Rosuvastatin Calcium 20 mg PO DAILY 05/07/18 Budesonide/Formoterol Fumarate [Symbicort HFA 160-4.5 mcg Inhaler 6 gm] 2 puff IH Q12 10/26/18 Gabapentin [Neurontin 100 mg Capsule] 100 mg PO QHS 10/26/18 Tiotropium [place] [Spiriva Respimat] 2 puff IH DAILY 10/26/18 Allergies/Adverse Reactions: No Known Allergies Allergy (Verified 11/05/18 18:36) Review of Systems Constitutional: ABSENT: chills, fever(s) Eyes: ABSENT: visual disturbances, other - Eye pain Ears: ABSENT: hearing changes, other - Ear pain Nose, Mouth, and Throat: ABSENT: mouth pain, sore throat Cardiovascular: PRESENT: chest pain - Initial complaint on presentation to the emergency room with negative evaluation and now resolved. ABSENT: edema, palpitations Respiratory: PRESENT: dyspnea - Another initial complaint on presentation the emergency room now resolved. ABSENT: cough Gastrointestinal: ABSENT: abdominal pain, constipation, diarrhea, nausea, vomiting Genitourinary: ABSENT: dysuria, hematuria Musculoskeletal: PRESENT: back pain - Arthritis. ABSENT: deformity, joint swelling Integumentary: ABSENT: pruritus, rash Neurological: ABSENT: confusion, convulsions, memory loss Psychiatric: PRESENT: anxiety. ABSENT: depression, hallucinations, suicidal i deation Endocrine: ABSENT: cold intolerance, heat intolerance Hematologic/Lymphatic: ABSENT: easy bleeding, easy bruising Physical Exam Vital Signs: Temp Pulse Resp BP Pulse Ox 97.7 F 75 17 108/50 L 90 L 11/08/18 17:48 11/08/18 17:48 11/08/18 22:01 11/08/18 22:01 11/08/18 22:01 Intake & Output 02/11/07/18 11/08/18 23:59 23:59 23:59 Weight 60.1 kg General appearance: PRESENT: no acute distress, cooperative, disheveled, thin Head exam: PRESENT: atraumatic, normocephalic Eye exam: PRESENT: conjunctiva pink. ABSENT: scleral icterus Ear exam: PRESENT: normal external ear exam. ABSENT: bleeding, drainage Mouth exam: PRESENT: dry mucosa, neck supple Neck exam: ABSENT: thyromegaly, tracheal deviation Respiratory exam: PRESENT: clear to auscultation trudy, symmetrical, unlabored Cardiovascular exam: PRESENT: RRR. ABSENT: clicks, gallop, rubs Pulses: PRESENT: normal radial pulses, normal dorsalis pedis pul Vascular exam: PRESENT: normal capillary refill. ABSENT: pallor GI/Abdominal exam: PRESENT: normal bowel sounds, soft Rectal exam: PRESENT: deferred Extremities exam: ABSENT: joint swelling, pedal edema Musculoskeletal exam: ABSENT: deformity, dislocation Neurological exam: PRESENT: alert, oriented to person, oriented to place, oriented to time, oriented to situation, CN II-XII grossly intact, other - Moderate generalized tremor. ABSENT: motor sensory deficit Psychiatric exam: PRESENT: agitated, anxious Skin exam: PRESENT: dry, intact, warm. ABSENT: jaundice, rash, urticaria Results Laboratory Results: 11/08/18 18:31 11/08/18 18:31 11/08/18 11/08/18 18:31 18:31 WBC 6.8 RBC 4.06 L Hgb 11.9 L Hct 34.3 L MCV 84 MCH 29.2 MCHC 34.6 RDW 16.7 H Plt Count 381 Seg Neutrophils % 72.6 Lymphocytes % 13.5 Monocytes % 13.0 Eosinophils % 0.2 Basophils % 0.7 Absolute Neutrophils 4.9 Absolute Lymphocytes 0.9 Absolute Monocytes 0.9 Absolute Eosinophils 0.0 Absolute Basophils 0.0 Sodium 114.3 L* Potassium 4.3 Chloride 73 L Carbon Dioxide 27 Anion Gap 14 BUN 2 L Creatinine 0.38 L Est GFR ( Amer) > 60 Est GFR (Non-Af Amer) > 60 Glucose 80 Calcium 7.4 L 11/08/18 20:48 Troponin I < 0.012 Impressions: Chest X-Ray 11/08/18 20:30 IMPRESSION: No acute cardiopulmonary process copyright 2011 [employer]- All Rights Reserved Assessment & Plan - Diagnosis (1) Hyponatremia Is this a current diagnosis for this admission?: Yes Plan: The patient will be treated with gradual repletion of his sodium with IV and oral Sodium salts. Daily BMP's will be used to assess therapy. Telemetry monitoring. (2) Severe protein-calorie malnutrition Is this a current diagnosis for this admission?: Yes Plan: Ichthyology Teacher consult when available. (3) Acute alcoholic intoxication in alcoholism (blood level 0.08-0.29) Qualifiers: Complication of substance-induced condition: with delirium Qualified Code(s): F10.221 - Alcohol dependence with intoxication delirium Is this a current diagnosis for this admission?: Yes Plan: Detoxify and start theraputic prophylaxis with Valium 10 mg p.o. q4h scheduled and Valium 10 mg IV Q1H prn severe agitation, anxiety, hallucinations or tremors. (4) Tobacco use disorder, severe, dependence Is this a current diagnosis for this admission?: Yes Plan: Nicotine replacement with patch. Shuttle Final Inspector cessation when patient sober. (5) Hypertension Qualifiers: Hypertension type: essential hypertension Qualified Code(s): I10 - Essential (primary) hypertension Is this a current diagnosis for this admission?: Yes Plan: Continue antihypertensive regimen and for VS closely. (6) COPD (chronic obstructive pulmonary disease) Qualifiers: COPD type: unspecified COPD Qualified Code(s): J44.9 - Chronic obstructive pulmonary disease, unspecified Is this a current diagnosis for this admission?: Yes Plan: Use a standard pulmonary toilet with Duoneb and Pulmacort nebulizer therapy a maintenance dosing. - Time Time Spent: 30 to 50 Minutes Critical Time spent with patient: Less than 15 minutes Medications reviewed and adjusted accordingly: Yes Anticipated discharge: Home - Inpatient Certification Based on my medical assessment, after consideration of the patient's comorbidities, presenting symptoms, or acuity I expect that the services needed warrant INPATIENT care.: Yes I certify that my determination is in accordance with my understanding of Medicare's requirements for reasonable and necessary INPATIENT services [42 CFR 412.3e].: Yes Medical Necessity: Significant Comorbidiites Make Outpatient Treatment Too Risky, Need Close Monitoring Due to Risk of Patient Decompensation, Need For IV Fluids, Need For Continuous Telemetry Monitoring, Risk of Complication if Not Cared For in Hospital
[2018-11-09] MEDS: HEPARIN SOD (PORCINE) 5,000 UNIT/ML 1 ML SYRINGE SUBCUT SCH ×3 (06:25→22:52)
[2018-11-09] MEDS: NORMAL SALINE 1000 ML 1,000 ML IV PRN (06:25)
[2018-11-09] MEDS: BUDESONIDE NEB 0.5 MG/2 ML AMPUL NEB SCH ×2 (08:07→19:26)
[2018-11-09] MEDS: IPRATROPIUM/ALBUTEROL 0.5-2.5 MG/3 ML AMPUL NEB SCH ×4 (08:09→19:26)
--- NOTE | 2018-11-09 08:55 | EKG REPORT ---
SEVERITY:- ABNORMAL ECG - SINUS TACHYCARDIA PROBABLE INFERIOR INFARCT, OLD : Confirmed by: Lázaro De La Garza MD 09-Nov-2018 08:54:32
[2018-11-09] MEDS: DOCUSATE SODIUM 100 MG CAPSULE PO SCH ×2 (10:07→17:14)
[2018-11-09] MEDS: CLOPIDOGREL BISULFATE 75 MG TABLET PO SCH (10:07)
[2018-11-09] MEDS: LISINOPRIL 10 MG TABLET PO SCH (10:08)
[2018-11-09] MEDS: SODIUM BICARBONATE 650 MG TABLET PO SCH ×2 (10:08→14:19)
[2018-11-09 11:21] LABS: CREATINE KINASE MB 4.59 ng/mL (<4.55)
[2018-11-09 11:22] LABS: TROPONIN I < 0.012 ng/mL
[2018-11-09] MEDS: FAMOTIDINE 20 MG TABLET PO SCH ×2 (14:20→22:52)
[2018-11-09] MEDS ORDERED: DEXTROSE 5%-NORMAL SALINE 1,000 ML IV PRN ×2 (14:21→14:33)
--- NOTE | 2018-11-09 14:30 | PDOC PROGRESS REPORT ---
Subjective Progress Note for:: 11/09/18 Subjective:: LEIF NUÑEZ is a 63 year old male who presented to the emergency department acutely intoxicated with initial chief complaint of dyspnea and chest pain which later became a feeling that he was going to the highway followed by a feeling that he needed something for his nerves followed by a feeling that he should just leave AGAINST MEDICAL ADVICE and subsequent involuntary committal hold being placed. He was obviously intoxicated in the emergency room and made occasional mistakes on orientation related questions however generally he was correct with his responses to most questions for routine orientation to person place and time given his level of intoxication. 11/09/2018. No acute events since being transferred to inpatient. Patient is sleepy but easily arousable does not seem to be in any acute distress, alert oriented x3, cooperative with physical examination. Eyes any active hallucinations. Denies any fever, chills, nausea, vomiting, diarrhea, constipation or any urinary symptoms. Reason For Visit: ALCOHOL INTOXICATION, HYPONATREMIA Physical Exam Vital Signs: Temp Pulse Resp BP Pulse Ox 98.0 F 97 19 136/68 H 92 11/09/18 11:44 11/09/18 13:37 11/09/18 11:47 11/09/18 11:44 11/09/18 11:47 Intake & Output 11/08/18 11/09/18 11/10/18 06:59 06:59 06:59 Intake Total 1500 Output Total 1450 Balance 50 Weight 42.5 kg General appearance: PRESENT: no acute distress, thin Respiratory exam: PRESENT: clear to auscultation trudy. ABSENT: rales, rhonchi, wheezes Cardiovascular exam: PRESENT: RRR. ABSENT: diastolic murmur, rubs, systolic murmur GI/Abdominal exam: PRESENT: normal bowel sounds, soft. ABSENT: distended, guarding, mass, organolmegaly, rebound, tenderness Extremities exam: PRESENT: full ROM. ABSENT: calf tenderness, clubbing, pedal edema Neurological exam: PRESENT: alert, awake, oriented to person, oriented to place, oriented to time, oriented to situation, CN II-XII grossly intact. ABSENT: motor sensory deficit Results Laboratory Results: 11/09/18 03:18 11/09/18 03:18 11/08/18 11/08/18 11/08/18 18:31 18:31 20:27 WBC 6.8 RBC 4.06 L Hgb 11.9 L Hct 34.3 L MCV 84 MCH 29.2 MCHC 34.6 RDW 16.7 H Plt Count 381 Seg Neutrophils % 72.6 Lymphocytes % 13.5 Monocytes % 13.0 Eosinophils % 0.2 Basophils % 0.7 Absolute Neutrophils 4.9 Absolute Lymphocytes 0.9 Absolute Monocytes 0.9 Absolute Eosinophils 0.0 Absolute Basophils 0.0 Sodium 114.3 L* Potassium 4.3 Chloride 73 L Carbon Dioxide 27 Anion Gap 14 BUN 2 L Creatinine 0.38 L Est GFR ( Amer) > 60 Est GFR (Non-Af Amer) > 60 Glucose 80 Calcium 7.4 L Phosphorus Magnesium Total Bilirubin AST ALT Alkaline Phosphatase Total Protein Albumin Triglycerides Cholesterol LDL Cholesterol Direct VLDL Cholesterol HDL Cholesterol Urine Color STRAW Urine Appearance CLEAR Urine pH 7.0 Ur Specific [place] 1.005 Urine Protein NEGATIVE Urine Glucose (UA) NEGATIVE Urine Ketones NEGATIVE Urine Blood NEGATIVE Urine Nitrite NEGATIVE Ur Leukocyte Esterase NEGATIVE Urine WBC (Auto) 1 11/09/18 11/09/18 03:18 03:18 WBC 2.5 L D RBC 4.18 L Hgb 12.1 L Hct 35.2 L MCV 84 MCH 29.0 MCHC 34.5 RDW 16.8 H Plt Count 290 Seg Neutrophils % Lymphocytes % Monocytes % Eosinophils % Basophils % Absolute Neutrophils Absolute Lymphocytes Absolute Monocytes Absolute Eosinophils Absolute Basophils Sodium 128.7 L Potassium 4.7 Chloride 91 L Carbon Dioxide 25 Anion Gap 13 BUN 3 L Creatinine 0.43 L Est GFR ( Amer) > 60 Est GFR (Non-Af Amer) > 60 Glucose 96 Calcium 8.9 Phosphorus 4.1 Magnesium 1.9 Total Bilirubin 0.4 AST 63 H ALT 44 Alkaline Phosphatase 84 Total Protein 6.7 Albumin 4.2 Triglycerides 39 Cholesterol 192.72 LDL Cholesterol Direct 51 VLDL Cholesterol 8.0 L HDL Cholesterol 146 Urine Color Urine Appearance Urine pH Ur Specific [place] Urine Protein Urine Glucose (UA) Urine Ketones Urine Blood Urine Nitrite Ur Leukocyte Esterase Urine WBC (Auto) 11/08/18 11/09/18 11/09/18 20:48 03:18 03:18 Creatine Kinase 130 CK-MB (CK-2) 6.57 H Troponin I < 0.012 < 0.012 11/09/18 11/09/18 09:18 09:18 Creatine Kinase 75 CK-MB (CK-2) 4.59 H Troponin I < 0.012 Impressions: Chest X-Ray 11/08/18 20:30 IMPRESSION: No acute cardiopulmonary process copyright 2011 [employer]- All Rights Reserved Assessment & Plan - Diagnosis (1) Alcohol intoxication Qualifiers: Complication of substance-induced condition: with unspecified complication Qualified Code(s): F10.929 - Alcohol use, unspecified with intoxication, unspecified Is this a current diagnosis for this admission?: Yes Plan: DT protocol. Monitor for w/l. Continue D5 NS. Monitor volume status. (2) Hyponatremia Is this a current diagnosis for this admission?: Yes Plan: 2nd to EtOH. Continue D5 NS. follow up Na. Plan to Correct by 8 mEq in 24 hours. (3) Severe protein-calorie malnutrition Is this a current diagnosis for this admission?: Yes Plan: High Protien/Calorie Diet. Middle School Sports Coach Consult. (4) COPD (chronic obstructive pulmonary disease) Qualifiers: COPD type: unspecified COPD Qualified Code(s): J44.9 - Chronic obstructive pulmonary disease, unspecified Is this a current diagnosis for this admission?: No Plan: No on Acute Exacerbation. Continue PRN Nebs and Bipap. (5) Hypertension Qualifiers: Hypertension type: essential hypertension Qualified Code(s): I10 - Essential (primary) hypertension Is this a current diagnosis for this admission?: Yes Plan: Normotensive. Continue current meds.
[2018-11-09 15:41] LABS: BLOOD UREA NITROGEN 11 mg/dL (7-20); CALCIUM 8.4 mg/dL (8.4-10.2); GLUCOSE 121 mg/dL (75-110); POTASSIUM 4.4 mmol/L (3.6-5.0)
[2018-11-09 15:50] LABS: CREATINE KINASE MB 2.38 ng/mL (<4.55)
[2018-11-09 15:54] LABS: ANION GAP 5 (5-19); CARBON DIOXIDE 32 mmol/L (22-30); CHLORIDE 93 mmol/L (98-107); SODIUM 130.4 mmol/L (137-145); TROPONIN I < 0.012 ng/mL
[2018-11-09] MEDS ORDERED: FOLIC ACID/VITAMIN B COMP W-C CAPSULE PO SCH (16:00)
[2018-11-09] MEDS ORDERED: ATORVASTATIN CALCIUM 40 MG TABLET PO SCH (22:00)
[2018-11-10] MEDS ORDERED: ALBUTEROL SULFATE 0.083% NEB 2.5 MG/3 ML AMPUL NEB ONE (01:58)
[2018-11-10] MEDS ORDERED: ALBUTEROL SULFATE 0.083% NEB 2.5 MG/3 ML AMPUL NEB PRN (02:16)
[2018-11-10] MEDS: DIAZEPAM 5 MG TABLET PO SCH ×3 (02:51→09:07)
[2018-11-10] MEDS: HEPARIN SOD (PORCINE) 5,000 UNIT/ML 1 ML SYRINGE SUBCUT SCH (06:02)
[2018-11-10 07:12] LABS: HEMATOCRIT 33.2 % (37.9-51.0); HEMOGLOBIN 11.3 g/dL (13.5-17.0); MEAN CORPUSCULAR HEMOGLOBIN 29.1 pg (27.0-33.4); MEAN CORPUSCULAR VOLUME 86 fl (80-97); PLATELET COUNT 282 10^3/uL (150-450); RED BLOOD COUNT 3.88 10^6/uL (4.35-5.55)
[2018-11-10 07:23] LABS: WHITE BLOOD COUNT 8.9 10^3/uL (4.0-10.5)
[2018-11-10 07:35] LABS: ANION GAP 5 (5-19); BLOOD UREA NITROGEN 7 mg/dL (7-20); CALCIUM 8.4 mg/dL (8.4-10.2); CARBON DIOXIDE 34 mmol/L (22-30); CHLORIDE 93 mmol/L (98-107); GLUCOSE 101 mg/dL (75-110); POTASSIUM 3.8 mmol/L (3.6-5.0); SODIUM 131.9 mmol/L (137-145)
[2018-11-10] MEDS: BUDESONIDE NEB 0.5 MG/2 ML AMPUL NEB SCH (07:48)
[2018-11-10] MEDS: IPRATROPIUM/ALBUTEROL 0.5-2.5 MG/3 ML AMPUL NEB SCH (07:48)
[2018-11-10] MEDS ORDERED: NORMAL SALINE 1000 ML 1,000 ML IV PRN (07:58)
[2018-11-10] MEDS: DOCUSATE SODIUM 100 MG CAPSULE PO SCH (09:05)
[2018-11-10 09:06] VITALS: BP 146/67
[2018-11-10] MEDS: CLOPIDOGREL BISULFATE 75 MG TABLET PO SCH (09:07)
[2018-11-10] MEDS: FAMOTIDINE 20 MG TABLET PO SCH (09:07)
[2018-11-10] MEDS: LISINOPRIL 10 MG TABLET PO SCH (09:07)
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
== END 2018-11-10 11:29 | disposition left against medical advice (07) | DRG 894 ==
LOC: ER 17:34 → EH 22:05 → 3N 11-09 01:38
PROVIDERS: ADMIT Emergency Medicine; ATTEND Emergency Medicine
PROC: HZ2ZZZZ Detoxification Services for Substance Abuse Treatment (ICD-10-PCS; principal; 2018-11-09)
PROC: 3E0F73Z Introduction of Anti-inflammatory into Respiratory Tract, Via Natural or Artificial Opening (ICD-10-PCS; 2018-11-09)
DX: F10.221 Alcohol dependence with intoxication delirium (principal); E43 Unspecified severe protein-calorie malnutrition; E87.1 Hypo-osmolality and hyponatremia; Z68.1 Body mass index [BMI] 19.9 or less, adult; Y90.7 Blood alcohol level of 200-239 mg/100 ml; I25.10 Atherosclerotic heart disease of native coronary artery without angina pectoris; E78.5 Hyperlipidemia, unspecified; I10 Essential (primary) hypertension; J44.9 Chronic obstructive pulmonary disease, unspecified; M46.90 Unspecified inflammatory spondylopathy, site unspecified; F32.9 Major depressive disorder, single episode, unspecified; F17.210 Nicotine dependence, cigarettes, uncomplicated; R47.81 Slurred speech; I25.2 Old myocardial infarction; Z95.5 Presence of coronary angioplasty implant and graft; Z79.899 Other long term (current) drug therapy; Z82.61 Family history of arthritis; Z83.6 Family history of other diseases of the respiratory system; Z82.49 Family history of ischemic heart disease and other diseases of the circulatory system
CPT/HCPCS: 36415; 71045; 80048; 80053; 80061; 80076; 80307; 81001; 82550; 82553; 83735; 84100; 84484; 85025; 85027; 93005; 93010; 94640; 96360; 96361; 96372; 96374; 99283; 99285; J1644; J2550; J2930; J3360; J3490; J7030; J7040; J7620

== ENCOUNTER 2018-11-10 20:39 | Emergency (ER) | payer MEDICARE, MEDICAID ==
[2018-11-10 20:55] VITALS: BP 135/62
[2018-11-10] MEDS ORDERED: PREDNISONE 20 MG TABLET PO ONE (21:07)
[2018-11-10] MEDS ORDERED: IPRATROPIUM/ALBUTEROL 0.5-2.5 MG/3 ML AMPUL NEB ONE ×2 (21:07→21:10)
--- NOTE | 2018-11-10 21:13 | ER Document Report ---
ED Medical Screen (RME) - General Chief Complaint: Breathing Difficulty Stated Complaint: TROUBLE BREATHING Time Seen by Provider: 11/10/18 21:02 Primary Care Provider: LESLY BRYAN MD [Primary Care Provider] - Follow up as needed Notes: 63 year old male with a history of tobacco abuse, COPD, chronic alcoholism, comes emergency department for chief complaint of and pain in his chest. Admitted to the hospital earlier this week. TRAVEL OUTSIDE OF THE [place] 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 Takes ASA now, used to be on hypertensive medications, Hx Hypercholesterolemia, Hx Hypertension Pulmonary Medical History: Reports: Hx Asthma, Hx COPD, Hx Pneumonia Denies: Hx Bronchitis Neurological Medical History: Denies: Hx Cerebrovascular Accident, Hx Seizures Endocrine Medical History: Denies: Hx Diabetes Mellitus Type 1, Hx Diabetes Mellitus Type 2, Hx Hyperthyroidism, Hx Hypothyroidism Renal/ Medical History: Denies: Hx Peritoneal Dialysis GI Medical History: Denies: Hx Cirrhosis, Hx Hepatitis Musculoskeltal Medical History: Reports Hx Arthritis - chronic spine disorder, Denies Hx Gout, Reports Hx Musculoskeletal Deformity, Reports Hx Musculoskeletal Trauma Skin Medical History: Denies Hx Eczema, Denies Hx Psoriasis Psychiatric Medical History: Reports: Hx Borderline Personality Disorder, Hx Depression Traumatic Medical History: Reports: Hx Fractures - Left rib fractures with pneumothorax requiring chest tube on 05/23/2016 Infectious Medical History: Denies: Hx Hepatitis Past Surgical History: Reports: Hx Cardiac Catheterization, Hx Cardiac Surgery - stents, Other - Abdominal hernia repair - Immunizations Immunizations up to date: Yes Hx Diphtheria, Pertussis, Tetanus Vaccination: Yes History of Influenza Vaccine for 06/2017 - 11/2017 Season: Yes Influenza Administration Date for 06/2017 - 11/2017 Season: 06/16/17 Physical Exam - Vital signs Vitals: Temp Pulse Resp BP Pulse Ox 98.0 F 97 24 H 135/62 H 90 L 11/10/18 20:51 11/10/18 20:51 11/10/18 20:51 11/10/18 20:51 11/10/18 20:51 - Respiratory Respiratory status: Tachypnea - borderline, but speaking in full sentences, no labored breathing. No: Respiratory distress Breath sounds: Decreased air movement, Nonproductive cough, Wheezing Course - Re-evaluation Re-evalutation: Patient speaking in full sentences, he does not have labored breathing on my evaluation, oxygen saturation is approximately 90%, he does have some expiratory wheezes, he is cooperative, alert, does not appear to be in distress. He is not tachycardic or febrile. Giving breathing treatments, steroids, workup pending. I have greeted and performed a rapid initial assessment of this patient. A comprehensive ED assessment and evaluation of the patient, analysis of test results and completion of the medical decision making process will be conducted by additional ED providers. - Vital Signs Vital signs: Temp Pulse Resp BP Pulse Ox 98.0 F 97 24 H 135/62 H 90 L 11/10/18 20:51 11/10/18 20:51 11/10/18 20:51 11/10/18 20:51 11/10/18 20:51 Doctor's Discharge - Discharge Referrals: LESLY BRYAN MD [Primary Care Provider] - Follow up as needed
== END 2018-11-10 22:34 | disposition left against medical advice (07) ==
LOC: ER 20:39
DX: Z53.21 Procedure and treatment not carried out due to patient leaving prior to being seen by health care provider (principal); J44.9 Chronic obstructive pulmonary disease, unspecified; F10.20 Alcohol dependence, uncomplicated; F17.200 Nicotine dependence, unspecified, uncomplicated; R07.9 Chest pain, unspecified; I25.10 Atherosclerotic heart disease of native coronary artery without angina pectoris; I10 Essential (primary) hypertension; Z79.899 Other long term (current) drug therapy
CPT/HCPCS: 94640; 99281; A9270 ×2; J7512; J7620

== ENCOUNTER 2018-11-17 07:48 | Emergency (ER) | payer MEDICARE, MEDICAID ==
[2018-11-17] MEDS ORDERED: MIDAZOLAM 2 MG/2 ML INJ ONE (08:06)
[2018-11-17] MEDS ORDERED: KETAMINE HCL INJ 500 MG/10 ML VIAL ONE (08:06)
[2018-11-17] MEDS ORDERED: FENTANYL CITRATE INJ/PF 100 MCG/2 ML AMPUL ONE (08:07)
[2018-11-17] MEDS ORDERED: ETOMIDATE INJ/PF 20 MG/10 ML SDV IV ONE ×2 (08:11→09:11)
[2018-11-17] MEDS ORDERED: PROPOFOL 1,000 MG/100 ML INFUS..BTL IV ONE (08:19)
[2018-11-17] MEDS ORDERED: NORMAL SALINE 1000 ML 1,000 ML IV ONE (08:31)
[2018-11-17] MEDS ORDERED: METHYLPREDNISOLONE INJ 125 MG/2 ML SDV IV ONE (08:31)
[2018-11-17 08:39] LABS: ABSOLUTE BASOPHILS # (AUTO) 0.1 10^3/uL (0.0-0.2); ABSOLUTE EOSINOPHILS # (AUTO) 0.1 10^3/uL (0.0-0.6); ABSOLUTE MONOCYTES (AUTO) 1.4 10^3/uL (0.1-1.4); ABSOLUTE NEUT (AUTO) 4.5 10^3/uL (1.7-8.2); BASOPHILS % (AUTO) 0.9 % (0-2); EOSINOPHILS % (AUTO) 0.9 % (0-6); HEMATOCRIT 36.2 % (37.9-51.0); HEMOGLOBIN 12.5 g/dL (13.5-17.0); LYMPHOCYTES % (AUTO) 13.8 % (13-45); MEAN CORPUSCULAR HEMOGLOBIN 29.5 pg (27.0-33.4); MEAN CORPUSCULAR HGB CONC 34.6 g/dL (32.0-36.0); MEAN CORPUSCULAR VOLUME 85 fl (80-97); MONOCYTES % (AUTO) 19.9 % (3-13); PLATELET COUNT 205 10^3/uL (150-450); RED BLOOD COUNT 4.25 10^6/uL (4.35-5.55); RED CELL DISTRIBUTION WIDTH 17.3 % (11.5-14.0); SEGMENTED NEUTROPHILS % (AUTO) 64.5 % (42-78); TOTAL CELLS COUNTED % (AUTO) 100 %
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
[2018-11-17 08:46] LABS: ALANINE AMINOTRANSFERASE 34 U/L (21-72); ALBUMIN 4.1 g/dL (3.5-5.0); ALCOHOL 150 mg/dL (NONE DETECTED); ALKALINE PHOSPHATASE 100 U/L (38-126); ANION GAP 13 (5-19); ASPARTATE AMINO TRANSFERASE 45 U/L (17-59); BILIRUBIN,DIRECT 0.3 mg/dL (0.0-0.4); BILIRUBIN,TOTAL 0.4 mg/dL (0.2-1.3); BLOOD UREA NITROGEN 3 mg/dL (7-20); CALCIUM 8.1 mg/dL (8.4-10.2); CARBON DIOXIDE 29 mmol/L (22-30); CHLORIDE 81 mmol/L (98-107); GLUCOSE 96 mg/dL (75-110); POTASSIUM 4.4 mmol/L (3.6-5.0); SODIUM 123.1 mmol/L (137-145); TOTAL PROTEIN 6.8 g/dL (6.3-8.2)
--- NOTE | 2018-11-17 08:58 | RADIOLOGY REPORT (SQ) ---
EXAM DESCRIPTION: CHEST SINGLE VIEW COMPLETED DATE/TIME: 11/17/2018 8:48 am REASON FOR STUDY: ETT Placement/OG tube placement COMPARISON: CT angio chest 11/02/2018 Chest films 11/07/2018, 11/08/2018 EXAM PARAMETERS: NUMBER OF VIEWS: One view. TECHNIQUE: Single frontal radiographic view of the chest acquired. RADIATION DOSE: NA LIMITATIONS: None. FINDINGS: LUNGS AND PLEURA: No opacities, masses or pneumothorax. No pleural effusion. MEDIASTINUM AND HILAR STRUCTURES: No masses. Contour normal. HEART AND VASCULAR STRUCTURES: Heart normal in size. Normal vasculature. BONES: Convex leftward upper thoracic, rightward lower thoracic curvature. Old healed posterior left upper and lower rib fractures HARDWARE: Endotracheal tube tip 4 cm above the mara. Nasogastric tube tip and side port in the sto mach. OTHER: No other significant finding. IMPRESSION: Endotracheal and nasogastric tubes in good positioning. No focal infiltrates. No pleural effusion or pneumothorax. TECHNICAL DOCUMENTATION: JOB ID: [id number] [employer]- All Rights Reserved Reading location - IP/workstation name: [email or web address]
[2018-11-17] MEDS ORDERED: PROPOFOL 1,000 MG/100 ML INFUS..BTL IV PRN (09:11)
[2018-11-17] MEDS ORDERED: ROCURONIUM BROMIDE INJ 50 MG/5 ML VIAL IV ONE ×2 (09:12→19:49)
[2018-11-17 09:14] LABS: ARTERIAL BLOOD BASE EXCESS -2.5 mmol/L; ARTERIAL BLOOD FIO2 50%; ARTERIAL BLOOD H2CO3 1.64 mmol/L (1.05-1.35); ARTERIAL BLOOD HCO3 24.9 mmol/L (20-24); ARTERIAL BLOOD PCO2 54.6 mmHg (35-45); ARTERIAL BLOOD PH 7.28 (7.35-7.45); ARTERIAL BLOOD PO2 79.3 mmHg (80-100); ARTERIAL BLOOD TOTAL CO2 26.5 mmol/L (23-27)
[2018-11-17 09:21] LABS: APPEARANCE,URINE CLEAR; BILIRUBIN,URINE NEGATIVE (NEGATIVE); COLOR,URINE YELLOW; GLUCOSE, URINE NEGATIVE (NEGATIVE); KETONES,URINE NEGATIVE (NEGATIVE); LEUKOCYTE ESTERASE,URINE NEGATIVE (NEGATIVE); NITRITE,URINE NEGATIVE (NEGATIVE); PROTEIN,URINE NEGATIVE (NEGATIVE); URINE SPECIFIC GRAVITY 1.008; UROBILINOGEN,URINE NEGATIVE mg/dL (<2.0)
[2018-11-17 09:24] LABS: URINE AMPHETAMINES SCREEN NEGATIVE; URINE BARBITURATES SCREEN NEGATIVE; URINE BENZODIAZEPINES SCREEN UNCONFIRMED POSITIVE; URINE COCAINE SCREEN NEGATIVE; URINE MARIJUANA (THC) SCREEN NEGATIVE; URINE METHADONE SCREEN NEGATIVE; URINE PHENCYCLIDINE SCREEN NEGATIVE
--- NOTE | 2018-11-17 10:27 | RADIOLOGY REPORT (SQ) ---
EXAM DESCRIPTION: CHEST SINGLE VIEW COMPLETED DATE/TIME: 11/17/2018 10:09 am REASON FOR STUDY: decreased SpO2 COMPARISON: CT chest 11/02/2018 EXAM PARAMETERS: NUMBER OF VIEWS: One view. TECHNIQUE: Single frontal radiographic view of the chest acquired. RADIATION DOSE: NA LIMITATIONS: None. FINDINGS: LUNGS AND PLEURA: No opacities, masses or pneumothorax. No pleural effusion. MEDIASTINUM AND HILAR STRUCTURES: No masses. Contour normal. HEART AND VASCULAR STRUCTURES: Mild cardiomegaly. Normal vasculature. BONES: Old healed bilateral rib fractures HARDWARE: Endotracheal tube tip midtrachea. Nasogastric tube tip and side port in the stomach. OTHER: No other significant finding. IMPRESSION: Endotracheal tube, nasogastric tube in good positioning. No acute infiltrates. TECHNICAL DOCUMENTATION: JOB ID: [id number] [employer]- All Rights Reserved Reading location - IP/workstation name: [email or web address]
[2018-11-17 10:28] VITALS: BP 149/87
--- NOTE | 2018-11-17 13:00 | EKG REPORT ---
SEVERITY:- NORMAL ECG - SINUS RHYTHM : Confirmed by: Sruthi Rivas MD 17-Nov-2018 13:00:11
== END 2018-11-17 10:30 | disposition short-term general hospital (02) ==
LOC: ER 07:48
DX: T59.81 Toxic effect of smoke (principal); R06.03 Acute respiratory distress; J70.5 Respiratory conditions due to smoke inhalation; Y92.009 Unspecified place in unspecified non-institutional (private) residence as the place of occurrence of the external cause; E87.1 Hypo-osmolality and hyponatremia; J44.9 Chronic obstructive pulmonary disease, unspecified; I25.10 Atherosclerotic heart disease of native coronary artery without angina pectoris; I25.2 Old myocardial infarction; Z79.82 Long term (current) use of aspirin
CPT/HCPCS: 93005; 99291; 96374; 36415; 80307 ×2; 82803; 85025; 80053; 81001; 84484; 71045; 94660; 93010; 31500; J3490; J2704; J2930; J7030

== ENCOUNTER 2018-12-04 00:15 | Emergency (ER) | payer MEDICARE, MEDICAID ==
[2018-12-04 00:54] LABS: ABSOLUTE BASOPHILS # (AUTO) 0.1 10^3/uL (0.0-0.2); ABSOLUTE EOSINOPHILS # (AUTO) 0.2 10^3/uL (0.0-0.6); ABSOLUTE LYMPHOCYTES (AUTO) 0.8 10^3/uL (0.5-4.7); ABSOLUTE MONOCYTES (AUTO) 1.3 10^3/uL (0.1-1.4); ABSOLUTE NEUT (AUTO) 6.3 10^3/uL (1.7-8.2); BASOPHILS % (AUTO) 1.4 % (0-2); EOSINOPHILS % (AUTO) 1.9 % (0-6); HEMATOCRIT 30.2 % (37.9-51.0); HEMOGLOBIN 10.2 g/dL (13.5-17.0); LYMPHOCYTES % (AUTO) 8.7 % (13-45); MEAN CORPUSCULAR HEMOGLOBIN 28.5 pg (27.0-33.4); MEAN CORPUSCULAR HGB CONC 33.7 g/dL (32.0-36.0); MEAN CORPUSCULAR VOLUME 85 fl (80-97); MONOCYTES % (AUTO) 15.1 % (3-13); PLATELET COUNT 424 10^3/uL (150-450); RED BLOOD COUNT 3.57 10^6/uL (4.35-5.55); RED CELL DISTRIBUTION WIDTH 18.4 % (11.5-14.0); SEGMENTED NEUTROPHILS % (AUTO) 72.9 % (42-78); TOTAL CELLS COUNTED % (AUTO) 100 %; WHITE BLOOD COUNT 8.7 10^3/uL (4.0-10.5)
[2018-12-04 01:13] LABS: ALANINE AMINOTRANSFERASE 63 U/L (21-72); ALBUMIN 3.7 g/dL (3.5-5.0); ALKALINE PHOSPHATASE 86 U/L (38-126); ANION GAP 9 (5-19); ASPARTATE AMINO TRANSFERASE 37 U/L (17-59); BILIRUBIN,DIRECT 0.2 mg/dL (0.0-0.4); BILIRUBIN,TOTAL 0.4 mg/dL (0.2-1.3); BLOOD UREA NITROGEN 7 mg/dL (7-20); CALCIUM 9.4 mg/dL (8.4-10.2); CARBON DIOXIDE 29 mmol/L (22-30); CHLORIDE 96 mmol/L (98-107); GLUCOSE 93 mg/dL (75-110); POTASSIUM 3.7 mmol/L (3.6-5.0); SODIUM 134.2 mmol/L (137-145)
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
--- NOTE | 2018-12-04 01:56 | RADIOLOGY REPORT (SQ) ---
EXAM DESCRIPTION: XR CHEST 1 VIEW COMPLETED DATE/TME: 12/04/2018 00:42 CLINICAL HISTORY: 63 years, Male, chest tightness Comparison: November 17, 2018 FINDINGS: No focal lung consolidation. Mild bibasilar subsegmental atelectasis. No pleural effusion. No pneumothorax. Cardiac and mediastinal silhouette is unremarkable. No acute osseous abnormality. Old left rib fractures. Soft tissues are unremarkable. IMPRESSION: No acute findings. No focal lung consolidation.
[2018-12-04] MEDS ORDERED: ACETAMINOPHEN 325 MG TABLET PO ONE (02:11)
[2018-12-04] MEDS ORDERED: IPRATROPIUM/ALBUTEROL 0.5-2.5 MG/3 ML AMPUL NEB ONE (02:52)
[2018-12-04 04:14] VITALS: BP 128/75
--- NOTE | 2018-12-04 22:51 | EKG REPORT ---
SEVERITY:- BORDERLINE ECG - SINUS RHYTHM SHORT VA INTERVAL, ACCELERATED AV CONDUCTION : Confirmed by: Renee Gill 04-Dec-2018 22:50:11
== END 2018-12-04 04:40 | disposition home or self-care (01) ==
LOC: ER 00:15
DX: R07.9 Chest pain, unspecified (principal); R06.2 Wheezing; R06.02 Shortness of breath; J44.9 Chronic obstructive pulmonary disease, unspecified; F17.200 Nicotine dependence, unspecified, uncomplicated; I25.10 Atherosclerotic heart disease of native coronary artery without angina pectoris; I25.2 Old myocardial infarction
CPT/HCPCS: 93005; 94640; 99285; 36415; 85025; 80053; 84484; 71045; 93010; A9270 ×2; J7620

== ENCOUNTER 2018-12-05 15:20 | Emergency (ER) | payer MEDICARE, MEDICAID ==
[2018-12-05] MEDS ORDERED: IPRATROPIUM/ALBUTEROL 0.5-2.5 MG/3 ML AMPUL NEB ONE (15:36)
[2018-12-05] MEDS ORDERED: PREDNISONE 20 MG TABLET PO ONE (15:43)
[2018-12-05] MEDS ORDERED: ALBUTEROL SULFATE HFA (90 MCG/PUFF) 200 PUFF/8.5 GM MDI IH ONE (16:29)
--- NOTE | 2018-12-05 16:37 | RADIOLOGY REPORT (SQ) ---
EXAM DESCRIPTION: CHEST SINGLE VIEW COMPLETED DATE/TIME: 12/05/2018 4:13 pm REASON FOR STUDY: sob COMPARISON: 12/04/2018 EXAM PARAMETERS: NUMBER OF VIEWS: One view. TECHNIQUE: Single frontal radiographic view of the chest acquired. RADIATION DOSE: NA LIMITATIONS: None. FINDINGS: LUNGS AND PLEURA: Lungs currently clear with resolution scratch at lungs clear with resolu tion of the recently noted bibasilar atelectasis or infiltrate. MEDIASTINUM AND HILAR STRUCTURES: No masses. Contour normal. HEART AND VASCULAR STRUCTURES: Heart normal in size. Normal vasculature. BONES: No acute findings. HARDWARE: None in the chest. OTHER: No other significant finding. IMPRESSION: NO ACUTE RADIOGRAPHIC FINDING IN THE CHEST. Resolution of the recently noted bibasilar atelectasis or infiltrate. TECHNICAL DOCUMENTATION: JOB ID: [id number] [employer]- All Rights Reserved Reading location - IP/workstation name: [email or web address]
[2018-12-05 17:07] VITALS: BP 152/78
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
== END 2018-12-05 17:07 | disposition home or self-care (01) ==
LOC: ER 15:20
DX: J44.1 Chronic obstructive pulmonary disease with (acute) exacerbation (principal); R06.02 Shortness of breath; R00.0 Tachycardia, unspecified; I10 Essential (primary) hypertension; I25.10 Atherosclerotic heart disease of native coronary artery without angina pectoris; F17.210 Nicotine dependence, cigarettes, uncomplicated; Z87.01 Personal history of pneumonia (recurrent); Z95.5 Presence of coronary angioplasty implant and graft
CPT/HCPCS: 94640; 99284; 71045; A9270 ×2; J3490; J7512; J7620

== ENCOUNTER 2019-03-02 19:34 | Emergency (ER) | payer MEDICARE, MEDICAID ==
[2019-03-02] MEDS ORDERED: ASPIRIN 81 MG TABLET, CHEWABLE PO ONE (19:42)
[2019-03-02 20:09] LABS: ABSOLUTE BASOPHILS # (AUTO) 0.1 10^3/uL (0.0-0.2); ABSOLUTE LYMPHOCYTES (AUTO) 1.3 10^3/uL (0.5-4.7); ABSOLUTE MONOCYTES (AUTO) 0.7 10^3/uL (0.1-1.4); ABSOLUTE NEUT (AUTO) 2.1 10^3/uL (1.7-8.2); BASOPHILS % (AUTO) 1.8 % (0-2); HEMATOCRIT 32.3 % (37.9-51.0); HEMOGLOBIN 10.6 g/dL (13.5-17.0); MEAN CORPUSCULAR HEMOGLOBIN 24.8 pg (27.0-33.4); MEAN CORPUSCULAR HGB CONC 32.8 g/dL (32.0-36.0); MEAN CORPUSCULAR VOLUME 76 fl (80-97); MONOCYTES % (AUTO) 17.3 % (3-13); PLATELET COUNT 180 10^3/uL (150-450); RED BLOOD COUNT 4.27 10^6/uL (4.35-5.55); RED CELL DISTRIBUTION WIDTH 19.2 % (11.5-14.0); SEGMENTED NEUTROPHILS % (AUTO) 49.9 % (42-78); TOTAL CELLS COUNTED % (AUTO) 100 %; WHITE BLOOD COUNT 4.2 10^3/uL (4.0-10.5)
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
[2019-03-02 20:27] LABS: ALANINE AMINOTRANSFERASE 34 U/L (21-72); ALBUMIN 3.7 g/dL (3.5-5.0); ALKALINE PHOSPHATASE 75 U/L (38-126); ANION GAP 11 (5-19); ASPARTATE AMINO TRANSFERASE 53 U/L (17-59); BILIRUBIN,DIRECT 0.2 mg/dL (0.0-0.4); BILIRUBIN,TOTAL 0.2 mg/dL (0.2-1.3); BLOOD UREA NITROGEN 7 mg/dL (7-20); CALCIUM 7.8 mg/dL (8.4-10.2); CARBON DIOXIDE 26 mmol/L (22-30); CHLORIDE 84 mmol/L (98-107); CREATINE KINASE 542 U/L (55-170); GLUCOSE 84 mg/dL (75-110); POTASSIUM 4.3 mmol/L (3.6-5.0); SODIUM 121.4 mmol/L (137-145); TOTAL PROTEIN 6.5 g/dL (6.3-8.2)
[2019-03-02 20:38] LABS: CREATINE KINASE MB 7.23 ng/mL (<4.55)
[2019-03-02 20:40] LABS: TROPONIN I < 0.012 ng/mL
[2019-03-03 05:12] VITALS: BP 133/72
--- NOTE | 2019-03-04 07:50 | EKG REPORT ---
SEVERITY:- ABNORMAL ECG - SINUS RHYTHM ABNRM R PROG, CONSIDER ASMI OR LEAD PLACEMENT : Confirmed by: Sruthi Rivas MD 04-Mar-2019 07:49:14
== END 2019-03-02 20:22 | disposition left against medical advice (07) ==
LOC: ER 19:34
DX: Z53.21 Procedure and treatment not carried out due to patient leaving prior to being seen by health care provider (principal)
CPT/HCPCS: 36415; 71045; 80053; 82550; 82553; 84484; 85025; 93005; 93010

== ENCOUNTER 2019-03-23 04:01 | Emergency (ER) | payer MEDICARE, MEDICAID ==
[2019-03-23 04:30] VITALS: BP 164/95
--- NOTE | 2019-03-23 19:23 | EKG REPORT ---
SEVERITY:- NORMAL ECG - SINUS RHYTHM : Confirmed by: Sruthi Rivas MD 23-Mar-2019 19:23:32
== END 2019-03-23 05:10 | disposition left against medical advice (07) ==
LOC: ER 04:01
DX: Z53.21 Procedure and treatment not carried out due to patient leaving prior to being seen by health care provider (principal)
CPT/HCPCS: 93005; 93010

== ENCOUNTER 2019-03-24 07:53 | Inpatient (IN) | payer MEDICARE, MEDICAID ==
[2019-03-24] MEDS ORDERED: IPRATROPIUM/ALBUTEROL 0.5-2.5 MG/3 ML AMPUL NEB ONE (08:14)
[2019-03-24] MEDS ORDERED: ALBUTEROL SULFATE 0.083% NEB 2.5 MG/3 ML AMPUL NEB ONE (08:14)
--- NOTE | 2019-03-24 08:14 | ER Document Report ---
ED Psych Disorder / Suicide - General Stated Complaint: SUICIDAL IDEATIONS Time Seen by Provider: 03/24/19 07:59 Primary Care Provider: LESLY BRYAN MD [Primary Care Provider] - Follow up as needed TRAVEL OUTSIDE OF THE [place] IN LAST 30 DAYS: No - HPI Notes: Patient is a 63-year-old male that presents to the emergency department for chief complaint of suicidal ideation. Patient presented with the with IVC paperwork for suicidal ideation. He has a counselor who put him on the papers. Patient states that he tried to ride his bicycle into traffic today to kill himself. He states he frequently hears voices that are telling him to kill himself. He denies any ingestion or overdose. He does state that he has been drinking and his last drink was yesterday. He states that yesterday he tripped and fell landing on a chain link fence hurting his left arm. He believes that was yesterday evening but does not know exactly what time it was. He denies any head injury. He states he feels short of breath but denies chest pain. He believes he has not taken his medication at home in the last few days. Patient is a poor historian. Past Medical History: COPD Past Surgical History: Reviewed in chart Social History: Heavy daily alcohol, daily tobacco use. Denies drug use Family History: Reviewed and noncontributory for presenting illness Allergies: Reviewed, see documented allergy list. REVIEW OF SYSTEMS: CONSTITUTIONAL : No fever No chills No diaphoresis No recent illness EENT: No vision changes No congestion No sore throat CARDIOVASCULAR: No chest pain No palpitations RESPIRATORY: shortness of breath cough difficulty breathing GASTROINTESTINAL: No abdominal pain No nausea No vomiting No diarrhea GENITOURINARY: No dysuria No hematuria No difficulty urinating MUSCULOSKELETAL: No back pain No leg pain No arm pain SKIN: No rashes lesions LYMPHATIC: No swollen, enlarged glands. NEUROLOGICAL: No lightheadedness No headache No weakness No paresthesias PSYCHIATRIC: No anxiety depression Suicidal PHYSICAL EXAMINATION: Vital signs reviewed, nursing noted reviewed. GENERAL: Well-appearing, thin and in mild acute distress. HEAD: Atraumatic, normocephalic. EYES: Eyes appear normal, extraocular movements intact, sclera anicteric, conjunctiva are normal. ENT: nares patent, oropharynx clear without exudates. Dry mucous membranes. NECK: Normal range of motion, supple without lymphadenopathy LUNGS: Tachypneic with mild accessory muscle use. Breath sounds diminished with expiratory wheezing to auscultation bilaterally and equal. HEART: Regular rate and rhythm without murmurs ABDOMEN: Soft, nontender, normoactive bowel sounds. No rebound, guarding, or rigidity. No masses appreciated. EXTREMITIES: Nontender, good range of motion, no pitting or edema. NEUROLOGICAL: No focal neurological deficits. Moves all extremities spontaneously Motor and sensory grossly intact on exam. PSYCH: Suicidal, normal affect SKIN: Warm, Dry, normal turgor, right knee abrasion without bleeding. 2 skin tears to left anterior forearm. One measuring 9.0 cm x 2.0 cm the more proximal one is 7.0 cm x 5.0 cm. Both have mild bleeding. 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 Takes ASA now, used to be on hypertensive medications, Hx Hypercholesterolemia, Hx Hypertension Pulmonary Medical History: Reports: Hx Asthma, Hx COPD, Hx Pneumonia Denies: Hx Bronchitis Neurological Medical History: Denies: Hx Cerebrovascular Accident, Hx Seizures Endocrine Medical History: Denies: Hx Diabetes Mellitus Type 1, Hx Diabetes Mellitus Type 2, Hx Hyperthyroidism, Hx Hypothyroidism Renal/ Medical History: Denies: Hx Peritoneal Dialysis GI Medical History: Denies: Hx Cirrhosis, Hx Hepatitis Musculoskeletal Medical History: Reports Hx Arthritis - chronic spine disorder, Denies Hx Gout, Reports Hx Musculoskeletal Deformity, Reports Hx Musculoskeletal Trauma Skin Medical History: Denies Hx Eczema, Denies Hx Psoriasis Psychiatric Medical History: Reports: Hx Borderline Personality Disorder, Hx Depression Traumatic Medical History: Reports: Hx Fractures - Left rib fractures with pneumothorax requiring chest tube on 05/23/2016 Infectious Medical History: Denies: Hx Hepatitis Past Surgical History: Reports: Hx Cardiac Catheterization, Hx Cardiac Surgery - stents, Other - Abdominal hernia repair - Immunizations Immunizations up to date: Yes Hx Diphtheria, Pertussis, Tetanus Vaccination: Yes Hx Pneumococcal Vaccination: 02/22/13 Physical Exam - Vital signs Vitals: Temp Pulse Resp BP Pulse Ox 97.6 F 80 16 172/74 H 100 03/24/19 08:13 03/24/19 08:13 03/24/19 08:13 03/24/19 08:13 03/24/19 08:13 Course - Re-evaluation Re-evalutation: 03/24/19 08:13 Vitals reviewed. Nursing notes reviewed. Patient is tachypneic but oxygenating on room air. He did receive albuterol breathing treatment by EMS prior to arrival. The counselor who put him on IVC papers is not currently present but reportedly on her way in. Patient will be given DuoNeb and another albuterol for his COPD. Patient has significant skin tears to his left forearm that are unable to be approximated suture. The wounds were cleaned and dressed with nonstick dressing. Patient's tetanus vaccine is up-to-date. 03/24/19 10:16 Right patient's lab work shows severe hyponatremia. He has received 1 L of fluid in the emergency room and a second 1 has been ordered. Patient also received thiamine, folate, and Ativan for his developing alcohol withdrawal. Seizure precautions were started because of his hyponatremia. Chart review shows he has a history of hyponatremia in the past and this is likely secondary to his alcohol abuse. Patient will be admitted to the hospital for further management. His care was discussed with Dr. Jeniffer Ortiz 03/24/19 03/24/19 03/24/19 08:30 08:30 08:30 WBC 7.9 RBC 4.60 Hgb 11.6 L Hct 34.3 L MCV 75 L MCH 25.3 L MCHC 33.9 RDW 19.7 H Plt Count 311 Seg Neutrophils % 74.2 Lymphocytes % 13.5 Monocytes % 11.0 Eosinophils % 0.1 Basophils % 1.2 Absolute Neutrophils 5.9 Absolute Lymphocytes 1.1 Absolute Monocytes 0.9 Absolute Eosinophils 0.0 Absolute Basophils 0.1 Sodium 119.1 L* Potassium 4.7 Chloride 81 L Carbon Dioxide 24 Anion Gap 14 BUN 6 L Creatinine 0.38 L Est GFR ( Amer) > 60 Est GFR (Non-Af Amer) > 60 Glucose 75 Calcium 8.4 Total Bilirubin 0.4 Direct Bilirubin 0.3 Neonat Total Bilirubin Not Reportable Neonat Direct Bilirubin Not Reportable Neonat Indirect Bili Not Reportable AST 92 H ALT 29 Alkaline Phosphatase 101 Troponin I < 0.012 Total Protein 7.9 Albumin 4.5 Urine Color Urine Appearance Urine pH Ur Specific [place] Urine Protein Urine Glucose (UA) Urine Ketones Urine Blood Urine Nitrite Urine Bilirubin Urine Urobilinogen Ur Leukocyte Esterase Urine RBC (Auto) Urine Ascorbic Acid Salicylates < 1.0 L Urine Opiates Screen Urine Methadone Screen Acetaminophen < 10 L Ur Barbiturates Screen Ur Phencyclidine Scrn Ur Amphetamines Screen U Benzodiazepines Scrn Urine Cocaine Screen U Marijuana (THC) Screen Serum Alcohol 49 03/24/19 03/24/19 09:26 09:26 WBC RBC Hgb Hct MCV MCH MCHC RDW Plt Count Seg Neutrophils % Lymphocytes % Monocytes % Eosinophils % Basophils % Absolute Neutrophils Absolute Lymphocytes Absolute Monocytes Absolute Eosinophils Absolute Basophils Sodium Potassium Chloride Carbon Dioxide Anion Gap BUN Creatinine Est GFR ( Amer) Est GFR (Non-Af Amer) Glucose Calcium Total Bilirubin Direct Bilirubin Neonat Total Bilirubin Neonat Direct Bilirubin Neonat Indirect Bili AST ALT Alkaline Phosphatase Troponin I Total Protein Albumin Urine Color STRAW Urine Appearance CLEAR Urine pH 7.0 Ur Specific [place] 1.007 Urine Protein 30 H Urine Glucose (UA) NEGATIVE Urine Ketones 25 H Urine Blood NEGATIVE Urine Nitrite NEGATIVE Urine Bilirubin NEGATIVE Urine Urobilinogen NEGATIVE Ur Leukocyte Esterase NEGATIVE Urine RBC (Auto) 0 Urine Ascorbic Acid NEGATIVE Salicylates Urine Opiates Screen NEGATIVE Urine Methadone Screen NEGATIVE Acetaminophen Ur Barbiturates Screen NEGATIVE Ur Phencyclidine Scrn NEGATIVE Ur Amphetamines Screen NEGATIVE U Benzodiazepines Scrn NEGATIVE Urine Cocaine Screen NEGATIVE U Marijuana (THC) Screen NEGATIVE Serum Alcohol Chest X-Ray 03/24/19 08:01 IMPRESSION: NO ACUTE RADIOGRAPHIC FINDING IN THE CHEST. who accepted admission. - Vital Signs Vital signs: Temp Pulse Resp BP Pulse Ox 97.6 F 80 15 172/74 H 98 03/24/19 08:13 03/24/19 08:13 03/24/19 09:35 03/24/19 08:13 03/24/19 09:35 - Laboratory Result Diagrams: 03/24/19 08:30 03/24/19 08:30 Laboratory results interpreted by me: 03/24/19 03/24/19 03/24/19 08:30 08:30 09:26 Hgb 11.6 L Hct 34.3 L MCV 75 L MCH 25.3 L RDW 19.7 H Sodium 119.1 L* Chloride 81 L BUN 6 L Creatinine 0.38 L AST 92 H Urine Protein 30 H Urine Ketones 25 H Salicylates < 1.0 L Acetaminophen < 10 L - EKG Interpretation by Me Additional EKG results interpreted by me: 03/24/19 10:17 Interpreted by myself [id number]: Normal sinus rhythm, rate 86, normal axis, no ectopy, no STEMI, hyperacute T waves V2 through V4 Critical Care Note - Critical Care Note Total time excluding time spent on procedures (mins): 35 Comments: Critical care time 35 exclusive from separate billable procedures for a patient requiring complex medical decision making, and high potential for clinical deterioration. Time spent obtaining history from patient or surrogate, discussions with consultants, development of treatment plan with patient or surrogate, evaluation of patient's response to treatment, examination of patient, ordering and performing treatments and interventions, ordering and review of laboratory studies, re-evaluation of patient's condition, ordering and review of radiographic studies and review of old charts Discharge - Discharge Clinical Impression: Hyponatremia, Suicidal ideation, Dehydration, COPD exacerbation Alcohol withdrawal Qualifiers: Complication of substance-induced condition: uncomplicated Qualified Code(s): F10.230 - Alcohol dependence with withdrawal, uncomplicated Condition: Stable Disposition: ADMITTED INPATIENT Admitting Provider: Jeniffer (Hospitalist) Unit Admitted: IMCU Referrals: LESLY BRYAN MD [Primary Care Provider] - Follow up as needed
[2019-03-24] MEDS ORDERED: THIAMINE HCL 100 MG, FOLIC ACID 1 MG in NORMAL SALINE 250 ML IV ONE (08:15)
[2019-03-24] MEDS ORDERED: NORMAL SALINE 1000 ML 1,000 ML IV ONE ×2 (08:15→09:18)
[2019-03-24] MEDS ORDERED: THIAMINE HCL INJ 200 MG/2 ML VIAL ONE (08:24)
[2019-03-24] MEDS ORDERED: FOLIC ACID INJ 5 MG/1 ML 10 ML VIAL ONE (08:33)
[2019-03-24 08:45] LABS: ABSOLUTE BASOPHILS # (AUTO) 0.1 10^3/uL (0.0-0.2); ABSOLUTE LYMPHOCYTES (AUTO) 1.1 10^3/uL (0.5-4.7); ABSOLUTE MONOCYTES (AUTO) 0.9 10^3/uL (0.1-1.4); ABSOLUTE NEUT (AUTO) 5.9 10^3/uL (1.7-8.2); BASOPHILS % (AUTO) 1.2 % (0-2); EOSINOPHILS % (AUTO) 0.1 % (0-6); HEMATOCRIT 34.3 % (37.9-51.0); HEMOGLOBIN 11.6 g/dL (13.5-17.0); LYMPHOCYTES % (AUTO) 13.5 % (13-45); MEAN CORPUSCULAR HEMOGLOBIN 25.3 pg (27.0-33.4); MEAN CORPUSCULAR HGB CONC 33.9 g/dL (32.0-36.0); MEAN CORPUSCULAR VOLUME 75 fl (80-97); PLATELET COUNT 311 10^3/uL (150-450); RED CELL DISTRIBUTION WIDTH 19.7 % (11.5-14.0); SEGMENTED NEUTROPHILS % (AUTO) 74.2 % (42-78); TOTAL CELLS COUNTED % (AUTO) 100 %; WHITE BLOOD COUNT 7.9 10^3/uL (4.0-10.5)
--- NOTE | 2019-03-24 08:52 | RADIOLOGY REPORT (SQ) ---
EXAM DESCRIPTION: CHEST SINGLE VIEW COMPLETED DATE/TIME: 03/24/2019 8:45 am REASON FOR STUDY: short of breath COMPARISON: CT angio chest 11/02/2018 Chest films 11/17/2018, 12/04/2018, 12/05/2018, 05/02/2019 EXAM PARAMETERS: NUMBER OF VIEWS: One view. TECHNIQUE: Single frontal radiographic view of the chest acquired. RADIATION DOSE: NA LIMITATIONS: None. FINDINGS: LUNGS AND PLEURA: No opacities, masses or pneumothorax. No pleural effusion. MEDIASTINUM AND HILAR STRUCTURES: No masses. Contour normal. HEART AND VASCULAR STRUCTURES: Heart normal in size. Normal vasculature. BONES: Old healed bilateral rib fractures HARDWARE: None in the chest. OTHER: No other significant finding. IMPRESSION: NO ACUTE RADIOGRAPHIC FINDING IN THE CHEST. TECHNICAL DOCUMENTATION: JOB ID: [id number] [email or web address]- All Rights Reserved Reading location - IP/workstation name: [email or web address]
[2019-03-24 09:07] LABS: ALANINE AMINOTRANSFERASE 29 U/L (21-72); ALBUMIN 4.5 g/dL (3.5-5.0); ALCOHOL 49 mg/dL (NONE DETECTED); ALKALINE PHOSPHATASE 101 U/L (38-126); ANION GAP 14 (5-19); ASPARTATE AMINO TRANSFERASE 92 U/L (17-59); BILIRUBIN,DIRECT 0.3 mg/dL (0.0-0.4); BILIRUBIN,TOTAL 0.4 mg/dL (0.2-1.3); BLOOD UREA NITROGEN 6 mg/dL (7-20); CALCIUM 8.4 mg/dL (8.4-10.2); CARBON DIOXIDE 24 mmol/L (22-30); CHLORIDE 81 mmol/L (98-107); GLUCOSE 75 mg/dL (75-110); POTASSIUM 4.7 mmol/L (3.6-5.0); TOTAL PROTEIN 7.9 g/dL (6.3-8.2)
[2019-03-24 09:09] LABS: ACETAMINOPHEN < 10 ug/mL (10-30); SALICYLATE < 1.0 mg/dL (2.0-20.0)
[2019-03-24 09:10] LABS: SODIUM 119.1 mmol/L (137-145)
[2019-03-24] MEDS ORDERED: LORAZEPAM INJ 2 MG/1 ML VIAL IV ONE (09:18)
[2019-03-24 09:55] LABS: APPEARANCE,URINE CLEAR; BILIRUBIN,URINE NEGATIVE (NEGATIVE); COLOR,URINE STRAW; GLUCOSE, URINE NEGATIVE (NEGATIVE); KETONES,URINE 25 mg/dL (NEGATIVE); LEUKOCYTE ESTERASE,URINE NEGATIVE (NEGATIVE); NITRITE,URINE NEGATIVE (NEGATIVE); PROTEIN,URINE 30 mg/dL (NEGATIVE); URINE SPECIFIC GRAVITY 1.007; UROBILINOGEN,URINE NEGATIVE mg/dL (<2.0)
[2019-03-24 09:59] LABS: URINE AMPHETAMINES SCREEN NEGATIVE; URINE BARBITURATES SCREEN NEGATIVE; URINE BENZODIAZEPINES SCREEN NEGATIVE; URINE COCAINE SCREEN NEGATIVE; URINE MARIJUANA (THC) SCREEN NEGATIVE; URINE METHADONE SCREEN NEGATIVE; URINE PHENCYCLIDINE SCREEN NEGATIVE
[2019-03-24] MEDS ORDERED: NORMAL SALINE 1000 ML 1,000 ML IV SCH (10:45)
[2019-03-24] MEDS ORDERED: ONDANSETRON 4 MG TAB.RAPDIS PO PRN (10:46)
[2019-03-24] MEDS ORDERED: ACETAMINOPHEN 325 MG TABLET PO PRN (10:46)
[2019-03-24] MEDS ORDERED: LORAZEPAM INJ 2 MG/1 ML VIAL IV PRN (10:50)
--- NOTE | 2019-03-24 11:24 | EKG REPORT ---
SEVERITY:- NORMAL ECG - SINUS RHYTHM : Confirmed by: Sruthi Rivas MD 24-Mar-2019 11:22:11
[2019-03-24] MEDS: LORAZEPAM INJ 2 MG/1 ML VIAL IV SCH ×4 (15:30→23:40)
--- NOTE | 2019-03-24 16:05 | PSYCHOLOGICAL NOTE ---
Psych Note - Psych Note Date seen by psych provider: 03/24/19 Psych Note: Presenting Problem: [facility] (Mirta called to notify) petitioned for IVC due to alcohol intoxication/use and SI with plan to run into traffic. Patient received breathing treatment. he shook head yes to current SI and wanting help/treatment. Sodium is low (119.1) and patient being admitted medically. Serum Alcohol Level was 49. He has been seen numerous times with alcohol levels as high as the 200s. He is on [facility] protocol. Head CT dated 03/14/17 conducted secondary to AMS was Normal and did not have neurodegenerative language (was a concern given chronic alcohol use). Cannot do any kind of placement until patient is medically cleared. At that time can further assess and determine if needs IVC placement or voluntary detox placement (re link to [facility]). Diagnosis: SI Alcohol Use Disorder, Severe, likely withdrawal Impression/Plan: Recommendation to maintain IVC and reassess patient when medically cleared. Consulted with Dr. Magaña regarding the management and care of patient. Attending Hospitalist made aware of recommendations.
[2019-03-24 17:03] LABS: ANION GAP 6 (5-19); BLOOD UREA NITROGEN 7 mg/dL (7-20); CALCIUM 7.9 mg/dL (8.4-10.2); CARBON DIOXIDE 26 mmol/L (22-30); CHLORIDE 93 mmol/L (98-107); GLUCOSE 85 mg/dL (75-110); POTASSIUM 4.3 mmol/L (3.6-5.0); SODIUM 124.9 mmol/L (137-145)
[2019-03-24] MEDS: NORMAL SALINE 1000 ML 1,000 ML with MAGNESIUM SULFATE 8 MEQ, THIAMINE HCL 100 MG, MVI, ... IV SCH ×4 (17:16)
[2019-03-25] MEDS ORDERED: NORMAL SALINE 1000 ML 1,000 ML IV PRN (02:00)
[2019-03-25] MEDS: LORAZEPAM INJ 2 MG/1 ML VIAL IV SCH ×4 (04:46→15:09)
[2019-03-25 07:13] LABS: ABSOLUTE LYMPHOCYTES (AUTO) 0.7 10^3/uL (0.5-4.7); ABSOLUTE MONOCYTES (AUTO) 0.6 10^3/uL (0.1-1.4); ABSOLUTE NEUT (AUTO) 2.3 10^3/uL (1.7-8.2); BASOPHILS % (AUTO) 1.3 % (0-2); EOSINOPHILS % (AUTO) 0.1 % (0-6); HEMATOCRIT 31.1 % (37.9-51.0); HEMOGLOBIN 10.2 g/dL (13.5-17.0); LYMPHOCYTES % (AUTO) 19.2 % (13-45); MEAN CORPUSCULAR HEMOGLOBIN 24.5 pg (27.0-33.4); MEAN CORPUSCULAR HGB CONC 32.7 g/dL (32.0-36.0); MEAN CORPUSCULAR VOLUME 75 fl (80-97); MONOCYTES % (AUTO) 17.3 % (3-13); PLATELET COUNT 235 10^3/uL (150-450); RED BLOOD COUNT 4.16 10^6/uL (4.35-5.55); RED CELL DISTRIBUTION WIDTH 20.3 % (11.5-14.0); SEGMENTED NEUTROPHILS % (AUTO) 62.1 % (42-78); TOTAL CELLS COUNTED % (AUTO) 100 %; WHITE BLOOD COUNT 3.7 10^3/uL (4.0-10.5)
[2019-03-25 07:47] LABS: BLOOD UREA NITROGEN 6 mg/dL (7-20); CALCIUM 7.6 mg/dL (8.4-10.2); CARBON DIOXIDE 28 mmol/L (22-30); CHLORIDE 95 mmol/L (98-107); GLUCOSE 97 mg/dL (75-110); PHOSPHORUS 3.6 mg/dL (2.5-4.5)
[2019-03-25 08:06] LABS: POTASSIUM 4.3 mmol/L (3.6-5.0)
[2019-03-25 09:03] VITALS: BP 145/76
[2019-03-25 09:07] LABS: ANION GAP 4 (5-19)
[2019-03-25] MEDS ORDERED: FLUTICASONE/VILANTEROL 200-25 MCG/DOSE IH SCH (10:00)
[2019-03-25] MEDS ORDERED: CLOPIDOGREL BISULFATE 75 MG TABLET PO SCH (10:00)
[2019-03-25] MEDS ORDERED: (PENDING PHARMACY ID) (Tiotropium Bromide [Spiriva Respimat] 2 PUFF) IH SCH (10:00)
--- NOTE | 2019-03-25 14:44 | PSYCHOLOGICAL NOTE ---
Psych Note - Psych Note Date seen by psych provider: 03/25/19 Psych Note: Presenting Problem: [facility] petitioned for IVC 03/24/19 due to alcohol intoxication/use and SI. He was subsequently admitted due to low sodium. Today he denied SI and said he still wanted help with alcohol use. Observed patient interaction with attending nurse. He stated he wanted to leave and he'd be okay. He took off his heart monitor and started pulling at IV. He listen to redirection from nurse, however redirection had to be constant. Coordinated with [facility] worker Qiana, ([phone]), about rescinding and patient wanting to leave already. She had called in to check on patient status earlier in the day and mentioned he does not have a phone. Diagnosis: SI Alcohol Use Disorder, Severe, likely withdrawal Impression/Plan: Patient is cleared from acute psychiatric services. Recommendation to rescind IVC. He denied current SI/HI and no observed psychosis that seemed to interfere with ability to express wants/needs. [facility] aware of patient status. Consulted with Dr. Magaña regarding the management and care of patient. Attending Hospitalist made aware of recommendations.
--- NOTE | 2019-03-25 14:56 | PDOC H&P ---
History of Present Illness Admission Date/PCP: 03/24/19 09:39 LESLY BRYAN MD Patient complains of: Suicidal Ideation History of Present Illness: LEIF NUÑEZ is a 63 year old male 63 year old male with a long-standing history of ETOH abuse drinking 12 24-ounce beers daily. Patient comes in to the ER today with Suicidal Ideation that has progressively worsened over the last several days. Patient has had multiple admissions for this same situation. He presents with beer potomania with a sodium of 119. He has been seen by Psych and decision being made as to IVC determination. He had no treatment prior to arrival and ETOH seems to be an aggravating factor. Patient was given IV ativan in the ER and was falling asleep during the interview. 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 Takes ASA now, used to be on hypertensive medications, Hyperlipidema, Hypertension Pulmonary Medical History: Reports: Asthma, Chronic Obstructive Pulmonary Disease (COPD), Pneumonia Denies: Bronchitis Neurological Medical History: Denies: Seizures Endocrine Medical History: Denies: Diabetes Mellitus Type 1, Diabetes Mellitus Type 2, Hyperthyroidism, Hypothyroidism GI Medical History: Denies: Cirrhosis, Hepatitis Musculoskeltal Medical History: Reports: Arthritis - chronic spine disorder Denies: Gout Skin Medical History: Denies: Eczema, Psoriasis Psychiatric Medical History: Reports: Depression Hematology: Denies: Anemia, Bleeding Tendencies Past Surgical History Past Surgical History: Reports: Cardiac Catheterization, Other - Abdominal hernia repair Social History Smoking Status: Current Every Day Smoker Frequency of Alcohol Use: Heavy Last Alcohol Use: 03/24/19 Hx Recreational Drug Use: No Drugs: None Hx Prescription Drug Abuse: Yes - Opiate and benzodiazepine Family History Family History: Arthritis, CAD, COPD Parental Family History Reviewed: No - Unable to obtain as patient very lethargic Children Family History Reviewed: Unknown Sibling(s) Family History Reviewed.: Unknown Medication/Allergy Home Medications: Budesonide/Formoterol Fumarate [Symbicort HFA 160-4.5 mcg Inhaler 6 gm] 2 puff IH BID 03/24/19 Clopidogrel Bisulfate [Plavix 75 mg Tablet] 75 mg PO DAILY 03/24/19 Hydroxyzine HCl [Atarax 25 mg Tablet] 25 mg PO BIDP PRN 03/24/19 Tiotropium Ferguson [Spiriva Respimat] 2 puff IH DAILY 03/24/19 Trazodone HCl [Desyrel 50 mg Tablet] 25 mg PO QHS 03/24/19 Allergies/Adverse Reactions: No Known Allergies Allergy (Verified 11/05/18 18:36) Review of Systems Review of Systems: Unable to perform a full review of systems as patient very lethargic and nodding off during entire interview. Physical Exam Vital Signs: Temp Pulse Resp BP Pulse Ox 97.6 F 80 14 134/68 H 98 03/24/19 08:13 03/24/19 08:13 03/24/19 10:01 03/24/19 10:01 03/24/19 10:01 Intake & Output 03/23/19 03/24/19 03/25/19 06:59 06:59 06:59 Intake Total 1251.2 Balance 1251.2 Weight 54.431 kg General appearance: PRESENT: no acute distress, cooperative Head exam: PRESENT: atraumatic, normocephalic Eye exam: PRESENT: conjunctival injection Neck exam: ABSENT: carotid bruit, JVD, lymphadenopathy, thyromegaly Respiratory exam: PRESENT: clear to auscultation trudy. ABSENT: rales, rhonchi, wheezes Cardiovascular exam: PRESENT: RRR. ABSENT: diastolic murmur, rubs, systolic murmur Pulses: PRESENT: normal dorsalis pedis pul Vascular exam: PRESENT: normal capillary refill GI/Abdominal exam: PRESENT: normal bowel sounds, soft. ABSENT: distended, guarding, mass, organolmegaly, rebound, tenderness Extremities exam: PRESENT: full ROM. ABSENT: calf tenderness - Patient very lethargic secondary to Ativan given in the ER. Patient's falling asleep throughout entire exam unable to perform neurological or psychiatric evaluation. Patient was seen by psychiatric team prior to Ativan administration., clubbing, pedal edema Psychiatric exam: PRESENT: other - Unable to assess at this time the patient was seen by psychiatric team prior to administration of Ativan. Skin exam: PRESENT: dry, intact, warm. ABSENT: cyanosis, rash Results Laboratory Results: 03/24/19 08:30 03/24/19 08:30 03/24/19 03/24/19 03/24/19 08:30 08:30 09:26 WBC 7.9 RBC 4.60 Hgb 11.6 L Hct 34.3 L MCV 75 L MCH 25.3 L MCHC 33.9 RDW 19.7 H Plt Count 311 Seg Neutrophils % 74.2 Lymphocytes % 13.5 Monocytes % 11.0 Eosinophils % 0.1 Basophils % 1.2 Absolute Neutrophils 5.9 Absolute Lymphocytes 1.1 Absolute Monocytes 0.9 Absolute Eosinophils 0.0 Absolute Basophils 0.1 Sodium 119.1 L* Potassium 4.7 Chloride 81 L Carbon Dioxide 24 Anion Gap 14 BUN 6 L Creatinine 0.38 L Est GFR ( Amer) > 60 Est GFR (Non-Af Amer) > 60 Glucose 75 Calcium 8.4 Total Bilirubin 0.4 AST 92 H ALT 29 Alkaline Phosphatase 101 Total Protein 7.9 Albumin 4.5 Urine Color STRAW Urine Appearance CLEAR Urine pH 7.0 Ur Specific [place] 1.007 Urine Protein 30 H Urine Glucose (UA) NEGATIVE Urine Ketones 25 H Urine Blood NEGATIVE Urine Nitrite NEGATIVE Ur Leukocyte Esterase NEGATIVE Urine RBC (Auto) 0 03/24/19 08:30 Troponin I < 0.012 Impressions: Chest X-Ray 03/24/19 08:01 IMPRESSION: NO ACUTE RADIOGRAPHIC FINDING IN THE CHEST. Assessment and Plan - Diagnosis (1) Alcohol withdrawal Qualifiers: Complication of substance-induced condition: uncomplicated Qualified Code(s): F10.230 - Alcohol dependence with withdrawal, uncomplicated Is this a current diagnosis for this admission?: Yes Plan: Admit to telemetry. Ativan 1 mg IV every 4 hours scheduled and Ativan 1 mg IV every 3 hours PRN for withdrawal symptoms. Patient was placed on seizure precautions. Patient also has be reported amina with a sodium of 119 I will give a normal saline 125 mL an hour with a daily rally bag with multivitamin folic acid and thiamine. We will watch patient closely make changes plan of care as appropriate. (2) Hyponatremia Is this a current diagnosis for this admission?: Yes Plan: Beer potomania. Normal saline at 125 mg an hour. Repeat sodium level at 5 PM today. (3) Suicidal ideation Is this a current diagnosis for this admission?: Yes Plan: Await further recommendations per psych team. At that time will make change plan of care as appropriate and per the recommendations. - Time Time Spent with patient: 35 or more minutes - Inpatient Certification I certify that my determination is in accordance with my understanding of Medicare's requirements for reasonable and necessary INPATIENT services [42 CFR 412.3e].: Yes Medical Necessity: Need For Continuous Telemetry Monitoring, Risk of Complication if Not Cared For in Hospital
[2019-03-25] MEDS ORDERED: LORAZEPAM INJ 2 MG/1 ML VIAL IV ONE (15:45)
[2019-03-25] MEDS: NORMAL SALINE 1000 ML 1,000 ML with MAGNESIUM SULFATE 8 MEQ, THIAMINE HCL 100 MG, MVI, ... IV SCH ×4 (17:10)
[2019-03-25] MEDS ORDERED: TRAZODONE HCL 50 MG TABLET PO SCH (22:00)
[2019-03-26] MEDS ORDERED: TIOTROPIUM BROMIDE DPI 5 CAP/KIT (18 MCG/CAP) IH SCH (10:00)
[2019-03-26] MEDS ORDERED: DOBUTAMINE HCL/D5W 500 MG/250 ML RTUINJ IV PRN (18:12)
== END 2019-03-25 17:14 | disposition left against medical advice (07) | DRG 894 ==
LOC: ER 07:53 → EH 09:39 → 4W 17:03 → 4S 03-25 13:02
PROVIDERS: ADMIT Hospitalist; ATTEND Hospitalist
DX: F10.230 Alcohol dependence with withdrawal, uncomplicated (principal); R45.851 Suicidal ideations; R44.0 Auditory hallucinations; E87.1 Hypo-osmolality and hyponatremia; J44.1 Chronic obstructive pulmonary disease with (acute) exacerbation; I25.10 Atherosclerotic heart disease of native coronary artery without angina pectoris; E78.00 Pure hypercholesterolemia, unspecified; I10 Essential (primary) hypertension; F60.3 Borderline personality disorder; F17.210 Nicotine dependence, cigarettes, uncomplicated; Y90.2 Blood alcohol level of 40-59 mg/100 ml; I25.2 Old myocardial infarction; Z95.5 Presence of coronary angioplasty implant and graft
CPT/HCPCS: 36415; 71045; 80048; 80053; 80307; 81001; 83735; 84100; 84484; 85025; 93005; 93010; J2060; J3411; J3475; J3490; J7030; J7050; J7620

== ENCOUNTER 2019-03-26 10:44 | Emergency (ER) | payer MEDICARE, MEDICAID ==
[2019-03-26] MEDS ORDERED: ACETAMINOPHEN 325 MG TABLET PO ONE (11:42)
[2019-03-26] MEDS ORDERED: CEPHALEXIN 500 MG CAPSULE PO ONE (11:42)
[2019-03-26] MEDS ORDERED: DIPH/PERTUSS(ACELL)/TETANUS VAC/PF 0.5 ML SYR (>=10YO) IM ONE (11:43)
--- NOTE | 2019-03-26 12:18 | ER Document Report ---
HPI - HPI Patient complains to provider of: skin wound Time Seen by Provider: 03/26/19 11:37 Pain Level: 5 Context: Patient is a 63-year-old male presents the emergency department after a fall 2 days ago. Patient states I "fell on a fence." Patient states "I just want you to clean my cut." Patient is unsure of his last tetanus immunization. Patient denies taking any blood thinners or anticoagulants. Patient states he is unsure of his medications but "I know I do not take any blood thinners." Past medical history: Coronary artery disease, degenerative disc disease, COPD Allergies: None - REPRODUCTIVE Reproductive: DENIES: : - DERM Skin Color: Normal Past Medical History - General Information source: Patient - Social History Smoking Status: Current Some Day Smoker Chew tobacco use (# tins/day): No Frequency of alcohol use: Heavy Drug Abuse: None Family History: Arthritis, CAD, COPD Patient has suicidal ideation: No Patient has homicidal ideation: No - Past Medical History Cardiac Medical History: Reports: Hx Coronary Artery Disease - cardiac stents x2, 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 Takes ASA now, used to be on hypertensive medications, Hx Hypercholesterolemia, Hx Hypertension Pulmonary Medical History: Reports: Hx Asthma, Hx COPD, Hx Pneumonia Denies: Hx Bronchitis Neurological Medical History: Denies: Hx Cerebrovascular Accident, Hx Seizures Endocrine Medical History: Denies: Hx Diabetes Mellitus Type 1, Hx Diabetes Mellitus Type 2, Hx Hyperthyroidism, Hx Hypothyroidism Renal/ Medical History: Denies: Hx Peritoneal Dialysis GI Medical History: Denies: Hx Cirrhosis, Hx Hepatitis Musculoskeletal Medical History: Reports Hx Arthritis - chronic spine disorder, Denies Hx Gout, Reports Hx Musculoskeletal Deformity, Reports Hx Musculoskeletal Trauma Skin Medical History: Denies Hx Eczema, Denies Hx Psoriasis Psychiatric Medical History: Reports: Hx Borderline Personality Disorder, Hx Depression Traumatic Medical History: Reports: Hx Fractures - Left rib fractures with pneumothorax requiring chest tube on 05/23/2016 Infectious Medical History: Denies: Hx Hepatitis Past Surgical History: Reports: Hx Cardiac Catheterization, Hx Cardiac Surgery - stents, Other - Abdominal hernia repair - Immunizations Immunizations up to date: Yes Hx Diphtheria, Pertussis, Tetanus Vaccination: Yes Hx Pneumococcal Vaccination: 02/22/13 Vertical Provider Document - CONSTITUTIONAL Agree With Documented VS: Yes Notes: GENERAL: Alert, interacts well. No acute distress. HEAD: Normocephalic, atraumatic. EYES: Pupils equal, round, and reactive to light. Extraocular movements intact. ENT: Oral mucosa moist, tongue midline. NECK: Full range of motion. Supple. Trachea midline. LUNGS: Clear to auscultation bilaterally, no wheezes, rales, or rhonchi. No respiratory distress. HEART: Regular rate and rhythm. No murmur ABDOMEN: Soft, non-tender. Non-distended. Bowel sounds present in all 4 quadrants. EXTREMITIES: Moves all 4 extremities spontaneously. No edema, normal radial and dorsalis pedis pulses bilaterally. No cyanosis. BACK: no cervical, thoracic, lumbar midline tenderness. No saddle anesthesia, normal distal neurovascular exam. NEUROLOGICAL: Alert and oriented x3. Normal speech. cranial nerves II through XII grossly intact PSYCH: Normal affect, normal mood. SKIN: Warm, dry, normal turgor. Patient has an extensive skin tear/abraded tissue noted to the anterior aspect of his left forearm measuring approximately 7 cm x 3 cm. There does not appear to be a specific laceration or any skin or tissue that needs to be repaired. - INFECTION CONTROL TRAVEL OUTSIDE OF THE [place] IN LAST 30 DAYS: No Course - Re-evaluation Re-evalutation: 03/26/19 12:11 As I go to print out patient's discharge paperwork the nurse brings to my attention that the patient has left the emergency room prior to getting his discharge paperwork. Nurse states that the patient did receive treatments given in the emergency department although I was going to send patient home with a prescription for prophylactic antibiotics. Discharge - Discharge Clinical Impression: Skin tear of left forearm without complication Qualifiers: Encounter type: initial encounter Qualified Code(s): S51.812A - Laceration without foreign body of left forearm, initial encounter Condition: Stable Disposition: HOME, SELF-CARE Instructions: Laceration Care (OM), Prophylactic Antibiotic (OM), Tetanus Immunization Given ([facility]) Additional Instructions: As we discussed you have been seen and treated in the emergency department for a skin tear to your left forearm. I am going to place you on prophylactic antibiotics as I do not want this to get infected. Please make sure you follow- up with your primary care provider in the next 24 to 48 hours for a wound recheck. Please also make sure you keep the wound clean and dry. Please return to the emergency room for any other concerns. Prescriptions: Cephalexin Monohydrate [Keflex 500 mg Capsule] 500 mg PO BID 7 Days #14 capsule Referrals: LESLY BRYAN MD [Primary Care Provider] - Follow up as needed
== END 2019-03-26 12:11 | disposition home or self-care (01) ==
LOC: ER 10:44
DX: S51.812A Laceration without foreign body of left forearm, initial encounter (principal); W19.XXXA Unspecified fall, initial encounter; I25.10 Atherosclerotic heart disease of native coronary artery without angina pectoris; I10 Essential (primary) hypertension; J44.9 Chronic obstructive pulmonary disease, unspecified; F17.200 Nicotine dependence, unspecified, uncomplicated
CPT/HCPCS: 99282; 90471; 90715; A9270 ×2

== ENCOUNTER 2019-03-27 13:11 | Inpatient (IN) | payer MEDICARE, MEDICAID ==
[2019-03-27] MEDS ORDERED: ASPIRIN 81 MG TABLET, CHEWABLE PO ONE (13:16)
--- NOTE | 2019-03-27 13:16 | ER Document Report ---
ED Medical Screen (RME) - General Chief Complaint: Shortness Of Breath Stated Complaint: RESPIRATORY DISTRESS Primary Care Provider: LESLY BRYAN MD [Primary Care Provider] - Follow up as needed Notes: Patient is a 63-year-old male well-known to the emergency department presents with respiratory distress. Per EMS patient stated he had respiratory distress and chest pains. Stated patient in a room air saturation of 94%. They gave the patient 1 albuterol treatment. States patient told them not he was feeling a lot better. EMS states patient has had 2 beers today. GENERAL: Alert, interacts well. No acute distress. LUNGS: Expiratory wheezing to auscultation bilaterally apices and bases, No respiratory distress. I have greeted and performed a rapid initial assessment of this patient. A comprehensive ED assessment and evaluation of the patient, analysis of test results and completion of the medical decision making process will be conducted by additional ED providers. I have specifically instructed the patient or family members with the patient to immediately return to any nursing staff should anything change in the patient's condition or with their chief complaint. This medical record was dictated with voice recognizing software. There may be grammatical, syntax errors that are unintended. TRAVEL OUTSIDE OF THE [place] 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 Takes ASA now, used to be on hypertensive medications, Hx Hypercholesterolemia, Hx Hypertension Pulmonary Medical History: Reports: Hx Asthma, Hx COPD, Hx Pneumonia Denies: Hx Bronchitis Neurological Medical History: Denies: Hx Cerebrovascular Accident, Hx Seizures Endocrine Medical History: Denies: Hx Diabetes Mellitus Type 1, Hx Diabetes Mellitus Type 2, Hx Hyperthyroidism, Hx Hypothyroidism Renal/ Medical History: Denies: Hx Peritoneal Dialysis GI Medical History: Denies: Hx Cirrhosis, Hx Hepatitis Musculoskeltal Medical History: Reports Hx Arthritis - chronic spine disorder, Denies Hx Gout, Reports Hx Musculoskeletal Deformity, Reports Hx Musculoskeletal Trauma Skin Medical History: Denies Hx Eczema, Denies Hx Psoriasis Psychiatric Medical History: Reports: Hx Borderline Personality Disorder, Hx Depression Traumatic Medical History: Reports: Hx Fractures - Left rib fractures with pneumothorax requiring chest tube on 05/23/2016 Infectious Medical History: Denies: Hx Hepatitis Past Surgical History: Reports: Hx Cardiac Catheterization, Hx Cardiac Surgery - stents, Other - Abdominal hernia repair - Immunizations Immunizations up to date: Yes Hx Diphtheria, Pertussis, Tetanus Vaccination: Yes History of Influenza Vaccine for 06/2017 - 11/2017 Season: Yes Influenza Administration Date for 06/2017 - 11/2017 Season: 06/16/17 Doctor's Discharge - Discharge Referrals: LESLY BRYAN MD [Primary Care Provider] - Follow up as needed
[2019-03-27] MEDS ORDERED: IPRATROPIUM/ALBUTEROL 0.5-2.5 MG/3 ML AMPUL NEB ONE (13:17)
[2019-03-27 13:59] LABS: ABSOLUTE MONOCYTES (AUTO) 0.6 10^3/uL (0.1-1.4); ABSOLUTE NEUT (AUTO) 3.8 10^3/uL (1.7-8.2); BASOPHILS % (AUTO) 0.7 % (0-2); HEMATOCRIT 30.9 % (37.9-51.0); HEMOGLOBIN 10.3 g/dL (13.5-17.0); LYMPHOCYTES % (AUTO) 18.2 % (13-45); MEAN CORPUSCULAR HEMOGLOBIN 24.8 pg (27.0-33.4); MEAN CORPUSCULAR HGB CONC 33.3 g/dL (32.0-36.0); MEAN CORPUSCULAR VOLUME 74 fl (80-97); MONOCYTES % (AUTO) 11.2 % (3-13); PLATELET COUNT 236 10^3/uL (150-450); RED BLOOD COUNT 4.16 10^6/uL (4.35-5.55); RED CELL DISTRIBUTION WIDTH 19.7 % (11.5-14.0); SEGMENTED NEUTROPHILS % (AUTO) 69.9 % (42-78); TOTAL CELLS COUNTED % (AUTO) 100 %; WHITE BLOOD COUNT 5.4 10^3/uL (4.0-10.5)
[2019-03-27 14:16] LABS: ALANINE AMINOTRANSFERASE 33 U/L (21-72); ALBUMIN 3.6 g/dL (3.5-5.0); ALKALINE PHOSPHATASE 86 U/L (38-126); ASPARTATE AMINO TRANSFERASE 77 U/L (17-59); BILIRUBIN,DIRECT 0.3 mg/dL (0.0-0.4); BILIRUBIN,TOTAL 0.5 mg/dL (0.2-1.3); BLOOD UREA NITROGEN 4 mg/dL (7-20); CALCIUM 7.7 mg/dL (8.4-10.2); CARBON DIOXIDE 24 mmol/L (22-30); CHLORIDE 75 mmol/L (98-107); CREATINE KINASE 717 U/L (55-170); POTASSIUM 3.9 mmol/L (3.6-5.0); TOTAL PROTEIN 6.5 g/dL (6.3-8.2)
[2019-03-27 14:17] LABS: ANION GAP 14 (5-19)
[2019-03-27 14:19] LABS: GLUCOSE 66 mg/dL (75-110)
[2019-03-27 14:20] LABS: SODIUM 112.5 mmol/L (137-145)
[2019-03-27 14:30] LABS: TROPONIN I < 0.012 ng/mL
[2019-03-27] MEDS ORDERED: NORMAL SALINE 1000 ML 1,000 ML IV ONE (14:31)
--- NOTE | 2019-03-27 15:03 | RADIOLOGY REPORT (SQ) ---
EXAM DESCRIPTION: CHEST 2 VIEWS COMPLETED DATE/TIME: 03/27/2019 2:52 pm REASON FOR STUDY: SOB COMPARISON: 03/24/2019 NUMBER OF VIEWS: Two view. TECHNIQUE: Frontal and lateral radiographic views of the chest acquired. LIMITATIONS: None. FINDINGS: LUNGS AND PLEURA: No opacities, masses or pneumothorax. No pleural effusion. Attenuated bl ood vessels and flattened patrick-diaphragms. MEDIASTINUM AND HILAR STRUCTURES: No masses. No contour abnormalities. HEART AND VASCULAR STRUCTURES: Heart normal in size and contour. No evidence for failure. BONES: No acute findings. HARDWARE: None in the chest. OTHER: No other significant finding. IMPRESSION: COPD. NO ACUTE RADIOGRAPHIC FINDING IN THE CHEST. TECHNICAL DOCUMENTATION: JOB ID: [id number] [employer]- All Rights Reserved Reading location - IP/workstation name: [email or web address]
--- NOTE | 2019-03-27 15:27 | ER Document Report ---
ED General - General Chief Complaint: Shortness Of Breath Stated Complaint: RESPIRATORY DISTRESS Time Seen by Provider: 03/27/19 13:38 Primary Care Provider: LESLY BRYAN MD [Primary Care Provider] - Follow up as needed Notes: Patient is a 63-year-old male well-known to the emergency department. Presents with respiratory distress via EMS. EMS states patient called 911 for respiratory distress and the complaint of chest pain. States they found the patient to be wheezing upon their examination and administered 1 albuterol treatment. States patient's pulse oxygenation was around 96% after albuterol treatment. EMS states patient admits to drinking 2 "tall boys" today and after albuterol treatments was stating he felt "so much better." Patient is a known alcoholic to EMS and has been to this hospital multiple times. TRAVEL OUTSIDE OF THE [place] 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 Takes ASA now, used to be on hypertensive medications, Hx Hypercholesterolemia, Hx Hypertension Pulmonary Medical History: Reports: Hx Asthma, Hx COPD, Hx Pneumonia Denies: Hx Bronchitis Neurological Medical History: Denies: Hx Cerebrovascular Accident, Hx Seizures Endocrine Medical History: Denies: Hx Diabetes Mellitus Type 1, Hx Diabetes Mellitus Type 2, Hx Hyperthyroidism, Hx Hypothyroidism Renal/ Medical History: Denies: Hx Peritoneal Dialysis GI Medical History: Denies: Hx Cirrhosis, Hx Hepatitis Musculoskeletal Medical History: Reports Hx Arthritis - chronic spine disorder, Denies Hx Gout, Reports Hx Musculoskeletal Deformity, Reports Hx Musculoskeletal Trauma Skin Medical History: Denies Hx Eczema, Denies Hx Psoriasis Psychiatric Medical History: Reports: Hx Borderline Personality Disorder, Hx Depression Traumatic Medical History: Reports: Hx Fractures - Left rib fractures with pneumothorax requiring chest tube on 05/23/2016 Infectious Medical History: Denies: Hx Hepatitis Past Surgical History: Reports: Hx Cardiac Catheterization, Hx Cardiac Surgery - stents, Other - Abdominal hernia repair - Immunizations Immunizations up to date: Yes Hx Diphtheria, Pertussis, Tetanus Vaccination: Yes Hx Pneumococcal Vaccination: 06/09/13 Review of Systems - Review of Systems Constitutional: No symptoms reported EENT: No symptoms reported Cardiovascular: See HPI Respiratory: See HPI Gastrointestinal: No symptoms reported Genitourinary: No symptoms reported Male Genitourinary: No symptoms reported Musculoskeletal: See HPI Skin: No symptoms reported Hematologic/Lymphatic: No symptoms reported Neurological/Psychological: No symptoms reported Physical Exam - Vital signs Vitals: Pulse Ox 94 03/27/19 13:16 - Notes Notes: GENERAL: Alert, interacts well. No acute distress. HEAD: Normocephalic, atraumatic. EYES: Pupils equal, round, and reactive to light. Extraocular movements intact. ENT: Oral mucosa moist, tongue midline. NECK: Full range of motion. Supple. Trachea midline. LUNGS: Inspiratory and expiratory wheezes to auscultation bilaterally. No respiratory distress. HEART: Regular rate and rhythm. No murmur ABDOMEN: Soft, non-tender. Non-distended. Bowel sounds present in all 4 quadrants. EXTREMITIES: Moves all 4 extremities spontaneously. No edema, normal radial and dorsalis pedis pulses bilaterally. No cyanosis. BACK: no cervical, thoracic, lumbar midline tenderness. No saddle anesthesia, normal distal neurovascular exam. NEUROLOGICAL: Alert and oriented x3. Normal speech. cranial nerves II through XII grossly intact. PSYCH: Normal affect, normal mood. SKIN: Warm, dry, normal turgor. Coban noted left forearm, skin tear noted underneath, no signs of infection. Course - Re-evaluation Re-evalutation: Laboratory 03/27/19 03/27/19 03/27/19 13:47 13:47 13:47 WBC 5.4 RBC 4.16 L Hgb 10.3 L Hct 30.9 L MCV 74 L MCH 24.8 L MCHC 33.3 RDW 19.7 H Plt Count 236 Seg Neutrophils % 69.9 Lymphocytes % 18.2 Monocytes % 11.2 Eosinophils % 0.0 Basophils % 0.7 Absolute Neutrophils 3.8 Absolute Lymphocytes 1.0 Absolute Monocytes 0.6 Absolute Eosinophils 0.0 Absolute Basophils 0.0 Sodium 112.5 L* Potassium 3.9 Chloride 75 L Carbon Dioxide 24 Anion Gap 14 BUN 4 L Creatinine 0.36 L Est GFR ( Amer) > 60 Est GFR (Non-Af Amer) > 60 Glucose 66 L Calcium 7.7 L Total Bilirubin 0.5 Direct Bilirubin 0.3 Neonat Total Bilirubin Not Reportable Neonat Direct Bilirubin Not Reportable Neonat Indirect Bili Not Reportable AST 77 H ALT 33 Alkaline Phosphatase 86 Creatine Kinase 717 H CK-MB (CK-2) 11.50 H Troponin I < 0.012 Total Protein 6.5 Albumin 3.6 Chest X-Ray 03/27/19 13:16 IMPRESSION: COPD. NO ACUTE RADIOGRAPHIC FINDING IN THE CHEST. After breathing treatments in the emergency department patient states he overall feels a lot better. Patient is asking to leave the emergency room. Based on patient's hyponatremia I do not feel as though he is of sound mind to make his own decisions. I discussed with nursing staff that the patient needs to be kept in the hospital for admission, he can not leave AMA. I discussed this case with hospitalist Dr. Cantu who will admit the patient for hyponatremia. EKG shows sinus rhythm rate of 78, QTc 461, no ST segment elevations or depressions noted. - Vital Signs Vital signs: Temp Pulse Resp BP Pulse Ox 98.5 F 94 03/27/19 13:22 03/27/19 13:16 - Laboratory Result Diagrams: 03/27/19 13:47 03/27/19 13:47 Laboratory results interpreted by me: 03/27/19 03/27/19 03/27/19 13:47 13:47 13:47 RBC 4.16 L Hgb 10.3 L Hct 30.9 L MCV 74 L MCH 24.8 L RDW 19.7 H Sodium 112.5 L* Chloride 75 L BUN 4 L Creatinine 0.36 L Glucose 66 L Calcium 7.7 L AST 77 H Creatine Kinase 717 H CK-MB (CK-2) 11.50 H Discharge - Discharge Clinical Impression: Hyponatremia Condition: Fair Disposition: ADMITTED INPATIENT Admitting Provider: Nadya (Hospitalist) Unit Admitted: IMCU Referrals: LESLY BRYAN MD [Primary Care Provider] - Follow up as needed
[2019-03-27] MEDS ORDERED: NORMAL SALINE 1000 ML 1,000 ML IV PRN (16:12)
[2019-03-27] MEDS ORDERED: ACETAMINOPHEN 325 MG TABLET PO PRN (16:12)
[2019-03-27] MEDS ORDERED: ONDANSETRON HCL INJ/PF 4 MG/2 ML SDV IV PRN (16:12)
--- NOTE | 2019-03-27 16:12 | PDOC H&P ---
History of Present Illness Admission Date/PCP: LESLY BRYAN MD History of Present Illness: LEIF NUÑEZ is a 63 year old male patient frequent flyer and well- known to the hospital service and was past medical history of coronary artery disease status post stent placement, COPD, tobacco dependence brought by EMS with chief complaint of chest pain and respiratory distress. Of note his last admission was 3 days ago. Since patient is intoxicated he is not source of history. Brief history is obtained from ER attending note. Per ER attending note patient presents with respiratory distress by EMS. EMS states patient's called 911 for respiratory distress and complains of chest pain. EMS states that they found the patient to be wheezing upon their examination and adm inistered 1 dose of albuterol. 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 Takes ASA now, used to be on hypertensive medications, Hyperlipidema, Hypertension Pulmonary Medical History: Reports: Asthma, Chronic Obstructive Pulmonary Disease (COPD), Pneumonia Denies: Bronchitis Neurological Medical History: Denies: Seizures Endocrine Medical History: Denies: Diabetes Mellitus Type 1, Diabetes Mellitus Type 2, Hyperthyroidism, Hypothyroidism GI Medical History: Denies: Cirrhosis, Hepatitis Musculoskeltal Medical History: Reports: Arthritis - chronic spine disorder Denies: Gout Skin Medical History: Denies: Eczema, Psoriasis Psychiatric Medical History: Reports: Depression Hematology: Denies: Anemia, Bleeding Tendencies Past Surgical History Past Surgical History: Reports: Cardiac Catheterization, Other - Abdominal hernia repair Social History Smoking Status: Current Some Day Smoker Frequency of Alcohol Use: Heavy Hx Recreational Drug Use: No Drugs: None Hx Prescription Drug Abuse: Yes - Opiate and benzodiazepine - Advance Directive Resuscitation Status: Full Code Family History Family History: Arthritis, CAD, COPD Parental Family History Reviewed: Yes Children Family History Reviewed: Yes Sibling(s) Family History Reviewed.: Yes Medication/Allergy Home Medications: Budesonide/Formoterol Fumarate [Symbicort HFA 160-4.5 mcg Inhaler 6 gm] 2 puff IH BID 03/24/19 Clopidogrel Bisulfate [Plavix 75 mg Tablet] 75 mg PO DAILY 03/24/19 Hydroxyzine HCl [Atarax 25 mg Tablet] 25 mg PO BIDP PRN 03/24/19 Tiotropium Stuart [Spiriva Respimat] 2 puff IH DAILY 03/24/19 Trazodone HCl [Desyrel 50 mg Tablet] 25 mg PO QHS 03/24/19 Cephalexin Monohydrate [Keflex 500 mg Capsule] 500 mg PO BID 7 Days #14 capsule 03/26/19 Allergies/Adverse Reactions: No Known Allergies Allergy (Verified 11/05/18 18:36) Review of Systems ROS unobtainable: Due to mental status Physical Exam Vital Signs: Temp Pulse Resp BP Pulse Ox 98.5 F 22 H 136/84 H 97 03/27/19 13:22 03/27/19 15:01 03/27/19 15:01 03/27/19 15:01 Intake & Output 03/26/19 03/27/19 03/28/19 06:59 06:59 06:59 Weight 63.5 kg General appearance: PRESENT: mild distress Eye exam: PRESENT: conjunctival injection Neck exam: ABSENT: carotid bruit, JVD, lymphadenopathy, thyromegaly Respiratory exam: PRESENT: wheezes GI/Abdominal exam: PRESENT: normal bowel sounds, soft. ABSENT: distended, guarding, mass, organolmegaly, rebound, tenderness Neurological exam: PRESENT: other - Sedated Results Laboratory Results: 03/27/19 13:47 03/27/19 13:47 03/27/19 03/27/19 13:47 13:47 WBC 5.4 RBC 4.16 L Hgb 10.3 L Hct 30.9 L MCV 74 L MCH 24.8 L MCHC 33.3 RDW 19.7 H Plt Count 236 Seg Neutrophils % 69.9 Lymphocytes % 18.2 Monocytes % 11.2 Eosinophils % 0.0 Basophils % 0.7 Absolute Neutrophils 3.8 Absolute Lymphocytes 1.0 Absolute Monocytes 0.6 Absolute Eosinophils 0.0 Absolute Basophils 0.0 Sodium 112.5 L* Potassium 3.9 Chloride 75 L Carbon Dioxide 24 Anion Gap 14 BUN 4 L Creatinine 0.36 L Est GFR ( Amer) > 60 Est GFR (Non-Af Amer) > 60 Glucose 66 L Calcium 7.7 L Total Bilirubin 0.5 AST 77 H ALT 33 Alkaline Phosphatase 86 Total Protein 6.5 Albumin 3.6 03/27/19 03/27/19 13:47 13:47 Creatine Kinase 717 H CK-MB (CK-2) 11.50 H Troponin I < 0.012 Impressions: Chest X-Ray 03/27/19 13:16 IMPRESSION: COPD. NO ACUTE RADIOGRAPHIC FINDING IN THE CHEST. Assessment and Plan - Diagnosis (1) Hyponatremia Is this a current diagnosis for this admission?: Yes Plan: Patient has severe hyponatremia with sodium level of 112. Patient has also prior history of hyponatremia. We will slowly hydrate him with normal saline and check his BMP in a.m. (2) Alcohol intoxication Qualifiers: Complication of substance-induced condition: uncomplicated Qualified Code(s): F10.920 - Alcohol use, unspecified with intoxication, uncomplicated Is this a current diagnosis for this admission?: Yes Plan: There is risk of alcohol withdrawal so we will put him on alcohol withdrawal protocol. (3) Chest pain Qualifiers: Chest pain type: other chest pain Qualified Code(s): R07.89 - Other chest pain; R07.8 - Other chest pain Is this a current diagnosis for this admission?: Yes Plan: I will trend his cardiac enzymes. (4) Hypertension Qualifiers: Hypertension type: essential hypertension Qualified Code(s): I10 - Essential (primary) hypertension Is this a current diagnosis for this admission?: Yes Plan: I will put him on antihypertensive medications. (5) COPD (chronic obstructive pulmonary disease) Is this a current diagnosis for this admission?: Yes Plan: We will put him PRN bronchodilators. (6) Hyperlipidemia Qualifiers: Hyperlipidemia type: unspecified Qualified Code(s): E78.5 - Hyperlipidemia, unspecified Is this a current diagnosis for this admission?: Yes Plan: We will check his medication and put him on statin.
[2019-03-27] MEDS ORDERED: LORAZEPAM INJ 2 MG/1 ML VIAL IV PRN (16:19)
[2019-03-27] MEDS ORDERED: HALOPERIDOL LACTATE INJ 5 MG/1 ML VIAL IV PRN (16:19)
[2019-03-27] MEDS ORDERED: IPRATROPIUM/ALBUTEROL 0.5-2.5 MG/3 ML AMPUL NEB PRN (16:21)
[2019-03-27] MEDS ORDERED: THIAMINE HCL 100 MG, FOLIC ACID 1 MG in NORMAL SALINE 250 ML IV SCH (18:00)
[2019-03-27] MEDS ORDERED: DOCUSATE SODIUM 100 MG/10 ML UDC PO SCH (18:00)
[2019-03-27 19:10] VITALS: BP 107/70
[2019-03-27] MEDS ORDERED: FAMOTIDINE INJ/PF 20 MG/2 ML SDV IV SCH (22:00)
--- NOTE | 2019-03-27 22:39 | EKG REPORT ---
SEVERITY:- NORMAL ECG - SINUS RHYTHM : Confirmed by: Sruthi Rivas MD 27-Mar-2019 22:39:07
[2019-03-28] MEDS ORDERED: ENOXAPARIN SODIUM INJ 40 MG/0.4 ML DISP.SYRIN SUBCUT SCH (10:00)
--- NOTE | 2019-03-28 17:04 | EKG REPORT ---
SEVERITY:- NORMAL ECG - SINUS RHYTHM : Confirmed by: Sruthi Rivas MD 28-Mar-2019 17:03:21
--- NOTE | 2019-03-28 17:39 | Left Against Medical Advice ---
Against Medical Advice Admission Date/Time: 03/27/19 16:01 Primary Care Provider: LESLY BRYAN MD Date of Patient Emigration: 03/27/19 - Diagnosis: (1) Hyponatremia Is this a current diagnosis for this admission?: Yes (2) Alcohol intoxication Is this a current diagnosis for this admission?: Yes (3) Chest pain Is this a current diagnosis for this admission?: Yes (4) Hypertension Is this a current diagnosis for this admission?: Yes (5) COPD (chronic obstructive pulmonary disease) Is this a current diagnosis for this admission?: Yes (6) Hyperlipidemia Is this a current diagnosis for this admission?: Yes - Summary: Summary: LEIF NUÑEZ is a 63 year old male patient frequent flyer and well- known to the hospital service and was past medical history of coronary artery d isease status post stent placement, COPD, tobacco dependence brought by EMS with chief complaint of chest pain and respiratory distress. Of note his last admission was 3 days ago. Since patient is intoxicated he is not source of history. Brief history is obtained from ER attending note. Per ER attending note patient presents with respiratory distress by EMS. EMS states patient's called 911 for respiratory distress and complains of chest pain. EMS states that they found the patient to be wheezing upon their examination and administered 1 dose of albuterol. Saturation improved to 96% EMS states patient admits to drinking 2 "tall boys" today and after albuterol treatments was stating he feels so much better with further detailed history and review of systems unobtainable. 03/28/2019:Pt left AMA at 2027. Pt very agitated and yelling at staff. Pt signed papers and walked off of unit to elevators.
== END 2019-03-27 20:20 | disposition left against medical advice (07) | DRG 641 ==
LOC: ER 13:11 → EH 16:01 → UNDOADMIN 16:01 → 3S 19:40
PROVIDERS: ADMIT Internal Medicine; ATTEND Internal Medicine
DX: E87.1 Hypo-osmolality and hyponatremia (principal); Y90.6 Blood alcohol level of 120-199 mg/100 ml; I10 Essential (primary) hypertension; J44.9 Chronic obstructive pulmonary disease, unspecified; E78.5 Hyperlipidemia, unspecified; I25.10 Atherosclerotic heart disease of native coronary artery without angina pectoris; F32.9 Major depressive disorder, single episode, unspecified; M46.90 Unspecified inflammatory spondylopathy, site unspecified; F17.210 Nicotine dependence, cigarettes, uncomplicated; F10.920 Alcohol use, unspecified with intoxication, uncomplicated; E78.00 Pure hypercholesterolemia, unspecified; I25.2 Old myocardial infarction; Z95.5 Presence of coronary angioplasty implant and graft; Z79.899 Other long term (current) drug therapy; Z79.02 Long term (current) use of antithrombotics/antiplatelets
CPT/HCPCS: 36415; 71046; 80053; 80307; 82550; 82553; 82962; 84484; 85025; 93005; 93010; J3411; J3490; J7030; J7050; J7620

== ENCOUNTER 2019-03-28 10:23 | Inpatient (IN) | payer MEDICARE, MEDICAID ==
[2019-03-28] MEDS ORDERED: IPRATROPIUM/ALBUTEROL 0.5-2.5 MG/3 ML AMPUL NEB ONE (11:20)
[2019-03-28 11:36] LABS: ABSOLUTE LYMPHOCYTES (AUTO) 0.5 10^3/uL (0.5-4.7); ABSOLUTE MONOCYTES (AUTO) 0.8 10^3/uL (0.1-1.4); ABSOLUTE NEUT (AUTO) 3.7 10^3/uL (1.7-8.2); BASOPHILS % (AUTO) 0.6 % (0-2); HEMATOCRIT 31.6 % (37.9-51.0); HEMOGLOBIN 10.5 g/dL (13.5-17.0); LYMPHOCYTES % (AUTO) 10.3 % (13-45); MEAN CORPUSCULAR HGB CONC 33.2 g/dL (32.0-36.0); MEAN CORPUSCULAR VOLUME 75 fl (80-97); MONOCYTES % (AUTO) 16.3 % (3-13); PLATELET COUNT 241 10^3/uL (150-450); RED BLOOD COUNT 4.19 10^6/uL (4.35-5.55); RED CELL DISTRIBUTION WIDTH 19.9 % (11.5-14.0); SEGMENTED NEUTROPHILS % (AUTO) 72.8 % (42-78); TOTAL CELLS COUNTED % (AUTO) 100 %; WHITE BLOOD COUNT 5.1 10^3/uL (4.0-10.5)
[2019-03-28 11:51] LABS: ALANINE AMINOTRANSFERASE 41 U/L (21-72); ALKALINE PHOSPHATASE 89 U/L (38-126); ANION GAP 12 (5-19); ASPARTATE AMINO TRANSFERASE 89 U/L (17-59); BILIRUBIN,DIRECT 0.2 mg/dL (0.0-0.4); BILIRUBIN,TOTAL 0.4 mg/dL (0.2-1.3); BLOOD UREA NITROGEN 4 mg/dL (7-20); CARBON DIOXIDE 27 mmol/L (22-30); CHLORIDE 83 mmol/L (98-107); CREATINE KINASE 836 U/L (55-170); POTASSIUM 3.9 mmol/L (3.6-5.0); SODIUM 121.7 mmol/L (137-145); TOTAL PROTEIN 7.1 g/dL (6.3-8.2)
[2019-03-28 11:57] LABS: GLUCOSE 63 mg/dL (75-110)
[2019-03-28 12:04] LABS: TROPONIN I < 0.012 ng/mL
--- NOTE | 2019-03-28 12:49 | ER Document Report ---
ED General - General Chief Complaint: Chest Pain Stated Complaint: NEEDS DRESSING CHANGE/LEFT ARM Time Seen by Provider: 03/28/19 11:51 Mode of Arrival: Ambulatory Information source: Patient Notes: This 63-year-old male returns to the emergency department with complaints of chest pressure and request for dressing change. Patient was evaluated and admitted yesterday for hyponatremia and chest pain. Patient left AMA upon arrival to the floor. Patient returns today resting dressing change and also complaining that he is experiencing chest pressure. He reports he tore hid arm up. Patient also complains of being thirsty and hungry. Reports he only drank half of beer this morning. Reports he did vomit before he came in. Patient complains that he has chronic back pain requesting something to help him rest. TRAVEL OUTSIDE OF THE [place] IN LAST 30 DAYS: No - HPI Onset: Other Quality of pain: Pressure Pain Level: 4 Associated symptoms: Chest pain, Vomiting Exacerbated by: Denies Relieved by: Denies Similar symptoms previously: Yes Recently seen / treated by doctor: Yes - Related Data Allergies/Adverse Reactions: No Known Allergies Allergy (Verified 03/28/19 10:25) Past Medical History - General Information source: Patient - Social History Smoking Status: Current Every Day Smoker Cigarette use (# per day): Yes Frequency of alcohol use: Heavy Drug Abuse: None Family History: Arthritis, CAD, COPD - Past Medical History Cardiac Medical History: Reports: Hx Coronary Artery Disease - cardiac stents x2, 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 Takes ASA now, used to be on hypertensive medications, Hx Hypercholesterolemia, Hx Hypertension Pulmonary Medical History: Reports: Hx Asthma, Hx COPD, Hx Pneumonia Denies: Hx Bronchitis Neurological Medical History: Denies: Hx Cerebrovascular Accident, Hx Seizures Endocrine Medical History: Denies: Hx Diabetes Mellitus Type 1, Hx Diabetes Mellitus Type 2, Hx Hyperthyroidism, Hx Hypothyroidism Renal/ Medical History: Denies: Hx Peritoneal Dialysis GI Medical History: Denies: Hx Cirrhosis, Hx Hepatitis Musculoskeletal Medical History: Reports Hx Arthritis - chronic spine disorder, Denies Hx Gout, Reports Hx Musculoskeletal Deformity, Reports Hx Musculoskeletal Trauma Skin Medical History: Denies Hx Eczema, Denies Hx Psoriasis Psychiatric Medical History: Reports: Hx Borderline Personality Disorder, Hx Depression Traumatic Medical History: Reports: Hx Fractures - Left rib fractures with pneumothorax requiring chest tube on 05/23/2016 Infectious Medical History: Denies: Hx Hepatitis Past Surgical History: Reports: Hx Cardiac Catheterization, Hx Cardiac Surgery - stents, Other - Abdominal hernia repair - Immunizations Immunizations up to date: Yes Hx Diphtheria, Pertussis, Tetanus Vaccination: Yes Hx Pneumococcal Vaccination: 02/22/13 Review of Systems - Review of Systems Notes: Review HPI for review of systems., All other systems negative Physical Exam - Vital signs Vitals: Temp Pulse Resp BP Pulse Ox 97.6 F 88 22 H 161/80 H 94 03/28/19 10:36 03/28/19 10:36 03/28/19 10:36 03/28/19 10:36 03/28/19 10:36 - General General appearance: Alert In distress: None - HEENT Head: Normocephalic Eyes: Normal Conjunctiva: Normal Extraocular movements intact: Yes Mucous membranes: Normal Neck: Normal, Supple. No: Lymphadenopathy - Respiratory Respiratory status: No respiratory distress Chest status: Nontender Breath sounds: Rhonchi Chest palpation: Normal - Cardiovascular Rhythm: Regular Heart sounds: Normal auscultation Murmur: No - Abdominal Inspection: Normal Distension: No distension Bowel sounds: Normal Tenderness: Nontender Organomegaly: No organomegaly - Extremities General upper extremity: Normal ROM General lower extremity: Normal ROM Forearm: Other - Left forearm with multiple skin tears - Neurological Neuro grossly intact: Yes Cognition: Normal Orientation: AAOx4 Federico Coma Scale Eye Opening: Spontaneous [place] Coma Scale Verbal: Oriented [place] Coma Scale Motor: Obeys Commands [place] Coma Scale Total: 15 Speech: Normal - Psychological Associated symptoms: Normal affect, Normal mood - Skin Skin Temperature: Warm Skin Moisture: Dry Skin Color: Normal Skin irregularity: other - Kin tear Location of irregularity: Extremities - Forearm Irregularity with: negative: Swelling, Tenderness, Warmth Course - Re-evaluation Re-evalutation: 03/28/19 18:00 This 65 this 63-year-old male is a frequent visitor to the emergency department. Apparently he was evaluated and treated for hyponatremia yesterday in the emergency department admitted but when he arrived up to the floor he left AMA. He tells me today he will stay in the hospital if I admit him. Patient has history of COPD cardiac disease EtOH abuse. History shows sodium of 121, hyponatremia, with EtOH of 143. K 3.9, CK and CK-MB are elevated, troponin is neg. No change in EKG, NS fluid infusing, Ativan ordered for patient's anxiety. Patient is resting quietly snoring softly without complaints of pain. Hospitalist Dr. Zamorano contacted for admission Dictation of this chart was performed using voice recognition software; therefore, there may be some unintended grammatical errors. - Vital Signs Vital signs: Temp Pulse Resp BP Pulse Ox 98.6 F 84 20 96/78 L 93 03/28/19 18:21 03/28/19 18:27 03/28/19 18:21 03/28/19 18:21 03/28/19 18:21 - Laboratory Result Diagrams: 03/28/19 11:15 03/28/19 11:15 Laboratory results interpreted by me: 03/28/19 03/28/19 03/28/19 11:15 11:15 11:15 RBC 4.19 L Hgb 10.5 L Hct 31.6 L MCV 75 L MCH 25.0 L RDW 19.9 H Lymphocytes % 10.3 L Monocytes % 16.3 H Sodium 121.7 L Chloride 83 L BUN 4 L Creatinine 0.38 L Glucose 63 L POC Glucose Calcium 8.0 L AST 89 H Creatine Kinase 836 H CK-MB (CK-2) 13.40 H Urine Ketones 03/28/19 03/28/19 03/28/19 12:53 13:23 15:36 RBC Hgb Hct MCV MCH RDW Lymphocytes % Monocytes % Sodium Chloride BUN Creatinine Glucose POC Glucose 134 H Calcium AST Creatine Kinase 629 H CK-MB (CK-2) Urine Ketones TRACE H 03/28/19 15:36 RBC Hgb Hct MCV MCH RDW Lymphocytes % Monocytes % Sodium Chloride BUN Creatinine Glucose POC Glucose Calcium AST Creatine Kinase CK-MB (CK-2) 10.70 H Urine Ketones - Diagnostic Test Radiology reviewed: Image reviewed, Reports reviewed - EKG Interpretation by Me EKG shows normal: Sinus rhythm Rate: Normal When compared to previous EKG there are: No significant change Additional EKG results interpreted by me: 03/28/19 15:56 EKG sinus rhythm no ST elevation no T wave inversion Discharge - Discharge Clinical Impression: Hyponatremia, Alcohol abuse Chest pain Qualifiers: Chest pain type: unspecified Qualified Code(s): R07.9 - Chest pain, unspecified Skin tear of left forearm without complication Qualifiers: Encounter type: sequela Qualified Code(s): S51.812S - Laceration without foreign body of left forearm, sequela Condition: Stable Disposition: ADMITTED INPATIENT Admitting Provider: Griselda (Hospitalist) Unit Admitted: Medical Floor
[2019-03-28 13:13] LABS: APPEARANCE,URINE CLEAR; BILIRUBIN,URINE NEGATIVE (NEGATIVE); COLOR,URINE STRAW; GLUCOSE, URINE NEGATIVE (NEGATIVE); KETONES,URINE TRACE mg/dL (NEGATIVE); LEUKOCYTE ESTERASE,URINE NEGATIVE (NEGATIVE); NITRITE,URINE NEGATIVE (NEGATIVE); PROTEIN,URINE NEGATIVE (NEGATIVE); URINE SPECIFIC GRAVITY 1.005; UROBILINOGEN,URINE NEGATIVE mg/dL (<2.0)
--- NOTE | 2019-03-28 13:14 | RADIOLOGY REPORT (SQ) ---
EXAM DESCRIPTION: CHEST SINGLE VIEW COMPLETED DATE/TIME: 03/28/2019 12:56 pm REASON FOR STUDY: cp COMPARISON: 03/27/2019 NUMBER OF VIEWS: One view. TECHNIQUE: Single frontal radiographic view of the chest acquired. LIMITATIONS: Positioning. FINDINGS: LUNGS AND PLEURA: No opacities, masses or pneumothorax. No pleural effusion. Attenuated bl ood vessels and flattened patrick-diaphragms. MEDIASTINUM AND HILAR STRUCTURES: No masses. Contour normal. HEART AND VASCULAR STRUCTURES: Heart normal in size. Normal vasculature. BONES: No acute findings. HARDWARE: None in the chest. OTHER: No other significant finding. IMPRESSION: COPD. NO ACUTE RADIOGRAPHIC FINDING IN THE CHEST. TECHNICAL DOCUMENTATION: JOB ID: [id number] [employer]- All Rights Reserved Reading location - IP/workstation name: [email or web address]
[2019-03-28] MEDS ORDERED: LORAZEPAM INJ 2 MG/1 ML VIAL IV ONE (14:08)
[2019-03-28] MEDS ORDERED: BACITRACIN ZINC OINTMENT 15 GM TP ONE (14:09)
[2019-03-28] MEDS ORDERED: NORMAL SALINE 1000 ML 1,000 ML IV PRN (14:10)
[2019-03-28] MEDS ORDERED: ACETAMINOPHEN 325 MG TABLET PO PRN (16:18)
[2019-03-28] MEDS ORDERED: (PENDING PHARMACY ID) (Hydroxyzine Hcl [Atarax 25 Mg Tablet] 25 MG) PO PRN (16:21)
[2019-03-28] MEDS ORDERED: LORAZEPAM INJ 2 MG/1 ML VIAL IV PRN (16:22)
[2019-03-28] MEDS ORDERED: HYDROXYZINE PAMOATE 25 MG CAPSULE PO PRN (16:27)
[2019-03-28] MEDS ORDERED: (PENDING PHARMACY ID) (Tiotropium Bromide [Spiriva Respimat] 2 PUFF) IH SCH ×2 (16:30)
--- NOTE | 2019-03-28 17:00 | PDOC H&P ---
History of Present Illness Admission Date/PCP: LESLY BRYAN MD Patient complains of: alcohol intoxication History of Present Illness: LEIF NUÑEZ is a 63 year old male with history of heavy alcohol use admitted yesterday and left AMA came back to the emergency room with alcohol intoxication also given the history of fall with a tear involving the left arm does not read any need any stitches serum sodium is 121 serum alcohol level is 143 consult was requested by ER physician for admission. 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 Takes ASA now, used to be on hypertensive medications, Hyperlipidema, Hypertension Pulmonary Medical History: Reports: Asthma, Chronic Obstructive Pulmonary Disease (COPD), Pneumonia Denies: Bronchitis Neurological Medical History: Denies: Seizures Endocrine Medical History: Denies: Diabetes Mellitus Type 1, Diabetes Mellitus Type 2, Hyperthyroidism, Hypothyroidism GI Medical History: Denies: Cirrhosis, Hepatitis Musculoskeltal Medical History: Reports: Arthritis - chronic spine disorder Denies: Gout Skin Medical History: Denies: Eczema, Psoriasis Psychiatric Medical History: Reports: Depression Hematology: Denies: Anemia, Bleeding Tendencies Past Surgical History Past Surgical History: Reports: Cardiac Catheterization, Other - Abdominal hernia repair Social History Smoking Status: Current Every Day Smoker Frequency of Alcohol Use: Heavy Hx Recreational Drug Use: No Drugs: None Hx Prescription Drug Abuse: Yes - Opiate and benzodiazepine - Advance Directive Resuscitation Status: Full Code Family History Family History: Arthritis, CAD, COPD Parental Family History Reviewed: Yes - Not significant. Children Family History Reviewed: Yes Sibling(s) Family History Reviewed.: Yes Medication/Allergy Home Medications: Budesonide/Formoterol Fumarate [Symbicort HFA 160-4.5 mcg Inhaler 6 gm] 2 puff IH BID 03/24/19 Clopidogrel Bisulfate [Plavix 75 mg Tablet] 75 mg PO DAILY 03/24/19 Hydroxyzine HCl [Atarax 25 mg Tablet] 25 mg PO BIDP PRN 03/24/19 Tiotropium [place] [Spiriva Respimat] 2 puff IH DAILY 03/24/19 Trazodone HCl [Desyrel 50 mg Tablet] 25 mg PO QHS 03/24/19 Allergies/Adverse Reactions: No Known Allergies Allergy (Verified 03/28/19 10:25) Review of Systems Constitutional: ABSENT: fever(s), headache(s), weakness Eyes: ABSENT: visual disturbances Ears: ABSENT: hearing changes Nose, Mouth, and Throat: ABSENT: sore throat Cardiovascular: PRESENT: chest pain Respiratory: PRESENT: dyspnea Gastrointestinal: ABSENT: abdominal pain, constipation, diarrhea, hematemesis, hematochezia, nausea, vomiting Integumentary: ABSENT: rash, wounds Neurological: PRESENT: frequent falls. ABSENT: abnormal gait, abnormal speech, confusion, dizziness, focal weakness, syncope Physical Exam Vital Signs: Temp Pulse Resp BP Pulse Ox 98.2 F 88 18 118/65 96 03/28/19 14:28 03/28/19 10:36 03/28/19 14:59 03/28/19 15:00 03/28/19 14:59 Intake & Output 03/27/19 03/28/19 03/29/19 06:59 06:59 06:59 Weight 59.4 kg General appearance: PRESENT: no acute distress, cooperative Head exam: PRESENT: atraumatic Eye exam: PRESENT: PERRLA Ear exam: PRESENT: normal external ear exam Mouth exam: PRESENT: neck supple Neck exam: ABSENT: carotid bruit, JVD, lymphadenopathy, thyromegaly Respiratory exam: PRESENT: decreased breath sounds Pulses: PRESENT: normal dorsalis pedis pul GI/Abdominal exam: PRESENT: normal bowel sounds, soft. ABSENT: distended, guarding, mass, organolmegaly, rebound, tenderness Rectal exam: PRESENT: deferred Neurological exam: PRESENT: alert Results Laboratory Results: 03/28/19 11:15 03/28/19 11:15 03/28/19 03/28/19 03/28/19 11:15 11:15 12:53 WBC 5.1 RBC 4.19 L Hgb 10.5 L Hct 31.6 L MCV 75 L MCH 25.0 L MCHC 33.2 RDW 19.9 H Plt Count 241 Seg Neutrophils % 72.8 Lymphocytes % 10.3 L Monocytes % 16.3 H Eosinophils % 0.0 Basophils % 0.6 Absolute Neutrophils 3.7 Absolute Lymphocytes 0.5 Absolute Monocytes 0.8 Absolute Eosinophils 0.0 Absolute Basophils 0.0 Sodium 121.7 L Potassium 3.9 Chloride 83 L Carbon Dioxide 27 Anion Gap 12 BUN 4 L Creatinine 0.38 L Est GFR ( Amer) > 60 Est GFR (Non-Af Amer) > 60 Glucose 63 L Calcium 8.0 L Total Bilirubin 0.4 AST 89 H ALT 41 Alkaline Phosphatase 89 Total Protein 7.1 Albumin 4.0 Urine Color STRAW Urine Appearance CLEAR Urine pH 6.0 Ur Specific [place] 1.005 Urine Protein NEGATIVE Urine Glucose (UA) NEGATIVE Urine Ketones TRACE H Urine Blood NEGATIVE Urine Nitrite NEGATIVE Ur Leukocyte Esterase NEGATIVE Urine WBC (Auto) 0 03/28/19 03/28/19 03/28/19 11:15 11:15 15:36 Creatine Kinase 836 H CK-MB (CK-2) 13.40 H Troponin I < 0.012 < 0.012 Impressions: Chest X-Ray 03/28/19 12:39 IMPRESSION: COPD. NO ACUTE RADIOGRAPHIC FINDING IN THE CHEST. Assessment and Plan - Diagnosis (1) Hyponatremia Is this a current diagnosis for this admission?: Yes Plan: 03/28/2019-patient is going to be admitted to telemetry for hyponatremia, sodium is 121.7. Patient serum sodium is 112 before he signed AMA yesterday it was much improved today. Hyponatremia most likely secondary to poor solute intake. To put him on telemetry telemetry monitoring aspiration fall seizure precautions are requested fluid restriction was started at 1500 cc/h. To closely monitor the serum sodium by doing chemistry twice a day. (2) Alcohol abuse Is this a current diagnosis for this admission?: Yes Plan: 03/28/2019-serum alcohol level is 143. To watch for the DTs. Started him on Ativan 2 mg IV every 2 hours PRN for agitation. Also started him on banana bag daily. (3) Skin tear of left forearm without complication Qualifiers: Encounter type: sequela Qualified Code(s): S51.812S - Laceration without foreign body of left forearm, sequela Is this a current diagnosis for this admission?: Yes Plan: 03/28/2019-patient came in with a skin tear of the left arm secondary to fall. He did not require any lydia. (4) Chest pain Qualifiers: Chest pain type: unspecified Qualified Code(s): R07.9 - Chest pain, unspecified Is this a current diagnosis for this admission?: Yes Plan: 03/28/2019-patient came in with nonspecific chest pains initial troponin was negative. Plan to do the serial EKGs and troponins. (5) COPD (chronic obstructive pulmonary disease) Qualifiers: COPD type: unspecified COPD Qualified Code(s): J44.9 - Chronic obstructive pulmonary disease, unspecified Is this a current diagnosis for this admission?: No Plan: 03/28/2019-patient has history of COPD complaining of shortness of breath the time of admission his pulse ox are stable around 93 to 94% on 2 L. Plan is to continue the present management chest x-ray was normal study. (7) Tobacco use disorder, severe, dependence Is this a current diagnosis for this admission?: No Plan: 09/28/2018-patient is a chronic daily smoker smoking counseling was provided more than 10 minutes and is going to be started on nicotine patch 21 mg daily. - Time Time Spent with patient: 25-34 minutes Smoking Cessation Education: over 10 minutes Medications reviewed and adjusted accordingly: Yes Anticipated discharge: Home
[2019-03-28] MEDS ORDERED: NICOTINE 21 MG/24 HR PATCH.TD24 TD ONE ×2 (18:00→22:45)
[2019-03-28] MEDS ORDERED: NORMAL SALINE 1000 ML 1,000 ML with POTASSIUM CHLORIDE 20 MEQ, MAGNESIUM SULFATE 8 MEQ,... IV SCH ×5 (18:00)
[2019-03-28] MEDS ORDERED: LEVALBUTEROL HCL NEB 0.63 MG/3 ML AMPUL NEB PRN (21:13)
[2019-03-28] MEDS ORDERED: RINGERS SOLUTION,LACTATED 1,000 ML IV PRN (21:13)
[2019-03-28] MEDS ORDERED: TRAZODONE HCL 50 MG TABLET PO SCH (22:00)
[2019-03-28 22:18] LABS: CREATINE KINASE MB 5.52 ng/mL (<4.55)
[2019-03-28 22:25] LABS: TROPONIN I < 0.012 ng/mL
[2019-03-28] MEDS: HEPARIN SOD (PORCINE) 5,000 UNIT/ML 1 ML SYRINGE SUBCUT SCH (22:40)
[2019-03-29] MEDS: HEPARIN SOD (PORCINE) 5,000 UNIT/ML 1 ML SYRINGE SUBCUT SCH (05:02)
[2019-03-29 05:29] LABS: HEMATOCRIT 31.2 % (37.9-51.0); HEMOGLOBIN 10.4 g/dL (13.5-17.0); MEAN CORPUSCULAR HEMOGLOBIN 24.9 pg (27.0-33.4); MEAN CORPUSCULAR HGB CONC 33.2 g/dL (32.0-36.0); MEAN CORPUSCULAR VOLUME 75 fl (80-97); PLATELET COUNT 216 10^3/uL (150-450); RED BLOOD COUNT 4.15 10^6/uL (4.35-5.55); RED CELL DISTRIBUTION WIDTH 20.5 % (11.5-14.0); WHITE BLOOD COUNT 3.3 10^3/uL (4.0-10.5)
[2019-03-29 05:47] LABS: ALANINE AMINOTRANSFERASE 33 U/L (21-72); ALBUMIN 3.1 g/dL (3.5-5.0); ALKALINE PHOSPHATASE 76 U/L (38-126); ANION GAP 7 (5-19); ASPARTATE AMINO TRANSFERASE 63 U/L (17-59); BILIRUBIN,DIRECT 0.2 mg/dL (0.0-0.4); BILIRUBIN,TOTAL 0.3 mg/dL (0.2-1.3); BLOOD UREA NITROGEN 5 mg/dL (7-20); CALCIUM 7.8 mg/dL (8.4-10.2); CARBON DIOXIDE 29 mmol/L (22-30); CHLORIDE 90 mmol/L (98-107); CREATINE KINASE 322 U/L (55-170); GLUCOSE 78 mg/dL (75-110); TOTAL PROTEIN 5.9 g/dL (6.3-8.2)
[2019-03-29 05:49] LABS: ABSOLUTE LYMPHOCYTES# (MANUAL) 0.9 10^3/uL (0.5-4.7); ABSOLUTE MONOCYTES # (MANUAL) 0.4 10^3/uL (0.1-1.4); BASOPHILS % (MANUAL) 0 % (0-2); EOSINOPHILS % (MANUAL) 2 % (0-6); LYMPHOCYTES % (MANUAL) 28 % (13-45); METAMYELOCYTES % (MANUAL) 1 % (0); MONOCYTES % (MANUAL) 12 % (3-13); SEGMENTED NEUTROPHILS % (MAN) 57 % (42-78); TOTAL CELLS COUNTED 100
[2019-03-29 05:51] LABS: ANISOCYTOSIS 3+; HYPOCHROMASIA 2+; PLATELET COMMENT ADEQUATE; POIKILOCYTOSIS SLIGHT; POLYCHROMASIA 1+; TARGET CELLS 1+
[2019-03-29 06:00] LABS: CREATINE KINASE MB 3.61 ng/mL (<4.55)
[2019-03-29] MEDS ORDERED: PANTOPRAZOLE SODIUM 40 MG TABLET.DR PO SCH (06:00)
[2019-03-29 06:01] LABS: TROPONIN I < 0.012 ng/mL
[2019-03-29] MEDS ORDERED: OXYCODONE-ACETAMINOPHEN 5-325 MG TABLET PO PRN (09:44)
[2019-03-29] MEDS ORDERED: DIAZEPAM INJ 10 MG/2 ML DISP.SYRIN IV PRN (09:50)
--- NOTE | 2019-03-29 09:52 | PDOC PROGRESS REPORT ---
Subjective Progress Note for:: 03/29/19 Subjective:: 63 year old male with history of heavy alcohol use admitted yesterday and left AMA came back to the emergency room with alcohol intoxication also given the history of fall with a tear involving the left arm does not read any need any stitches serum sodium is 121 serum alcohol level is 143 consult was requested by ER physician for admission. 03/29/2019-no acute events afebrile.c/o back pain requesting pain medications Reason For Visit: ALCOHOL INTOXICATION Physical Exam Vital Signs: Temp Pulse Resp BP Pulse Ox 98.5 F 91 16 136/86 H 92 03/29/19 07:18 03/29/19 07:18 03/29/19 07:18 03/29/19 07:18 03/29/19 07:18 Intake & Output 03/28/19 03/29/19 03/30/19 06:59 06:59 06:59 Intake Total 1288 Output Total 900 Balance 388 Weight 62.3 kg General appearance: PRESENT: no acute distress Head exam: PRESENT: atraumatic Eye exam: PRESENT: PERRLA Mouth exam: PRESENT: moist, tongue midline Teeth exam: PRESENT: poor dentation Neck exam: ABSENT: carotid bruit, JVD, lymphadenopathy, thyromegaly Respiratory exam: PRESENT: clear to auscultation trudy. ABSENT: rales, rhonchi, wheezes Cardiovascular exam: PRESENT: RRR. ABSENT: diastolic murmur, rubs, systolic murmur GI/Abdominal exam: PRESENT: normal bowel sounds, soft. ABSENT: distended, guarding, mass, organolmegaly, rebound, tenderness Rectal exam: PRESENT: deferred Neurological exam: PRESENT: alert, awake, oriented to person, oriented to place, oriented to time, oriented to situation, CN II-XII grossly intact. ABSENT: motor sensory deficit Psychiatric exam: PRESENT: appropriate affect, normal mood. ABSENT: homicidal ideation, suicidal ideation Results Laboratory Results: 03/29/19 04:30 03/29/19 04:30 03/28/19 03/28/19 03/28/19 11:15 11:15 12:53 WBC 5.1 RBC 4.19 L Hgb 10.5 L Hct 31.6 L MCV 75 L MCH 25.0 L MCHC 33.2 RDW 19.9 H Plt Count 241 Seg Neutrophils % 72.8 Lymphocytes % 10.3 L Monocytes % 16.3 H Eosinophils % 0.0 Basophils % 0.6 Absolute Neutrophils 3.7 Absolute Lymphocytes 0.5 Absolute Monocytes 0.8 Absolute Eosinophils 0.0 Absolute Basophils 0.0 Sodium 121.7 L Potassium 3.9 Chloride 83 L Carbon Dioxide 27 Anion Gap 12 BUN 4 L Creatinine 0.38 L Est GFR ( Amer) > 60 Est GFR (Non-Af Amer) > 60 Glucose 63 L Calcium 8.0 L Total Bilirubin 0.4 AST 89 H ALT 41 Alkaline Phosphatase 89 Total Protein 7.1 Albumin 4.0 TSH Urine Color STRAW Urine Appearance CLEAR Urine pH 6.0 Ur Specific [place] 1.005 Urine Protein NEGATIVE Urine Glucose (UA) NEGATIVE Urine Ketones TRACE H Urine Blood NEGATIVE Urine Nitrite NEGATIVE Ur Leukocyte Esterase NEGATIVE Urine WBC (Auto) 0 03/29/19 03/29/19 03/29/19 04:30 04:30 04:30 WBC 3.3 L RBC 4.15 L Hgb 10.4 L Hct 31.2 L MCV 75 L MCH 24.9 L MCHC 33.2 RDW 20.5 H Plt Count 216 Seg Neutrophils % Not Reportable Lymphocytes % Not Reportable Monocytes % Not Reportable Eosinophils % Not Reportable Basophils % Not Reportable Absolute Neutrophils Not Reportable Absolute Lymphocytes Not Reportable Absolute Monocytes Not Reportable Absolute Eosinophils Not Reportable Absolute Basophils Not Reportable Sodium 126.0 L Potassium 4.0 Chloride 90 L Carbon Dioxide 29 Anion Gap 7 BUN 5 L Creatinine 0.44 L Est GFR ( Amer) > 60 Est GFR (Non-Af Amer) > 60 Glucose 78 Calcium 7.8 L Total Bilirubin 0.3 AST 63 H ALT 33 Alkaline Phosphatase 76 Total Protein 5.9 L Albumin 3.1 L TSH 0.02 L Urine Color Urine Appearance Urine pH Ur Specific [place] Urine Protein Urine Glucose (UA) Urine Ketones Urine Blood Urine Nitrite Ur Leukocyte Esterase Urine WBC (Auto) 03/28/19 03/28/19 03/28/19 11:15 11:15 15:36 Creatine Kinase 836 H CK-MB (CK-2) 13.40 H Troponin I < 0.012 < 0.012 03/28/19 03/28/19 03/28/19 15:36 15:36 21:40 Creatine Kinase 629 H 436 H CK-MB (CK-2) 10.70 H Troponin I Cancelled 03/28/19 03/29/19 03/29/19 21:40 04:30 04:30 Creatine Kinase 322 H CK-MB (CK-2) 5.52 H 3.61 Troponin I < 0.012 < 0.012 Impressions: Chest X-Ray 03/28/19 12:39 IMPRESSION: COPD. NO ACUTE RADIOGRAPHIC FINDING IN THE CHEST. Assessment and Plan - Diagnosis (1) Hyponatremia Is this a current diagnosis for this admission?: Yes Plan: 03/28/2019-patient is going to be admitted to telemetry for hyponatremia, sodium is 121.7. Patient serum sodium is 112 before he signed AMA yesterday it was much improved today. Hyponatremia most likely secondary to poor solute intake. To put him on telemetry telemetry monitoring aspiration fall seizure precautions are requested fluid restriction was started at 1500 cc/h. To closely monitor the serum sodium by doing chemistry twice a day. 03/29/2019-patient came with hyponatremia serum sodium of 121.7 today it is 126. He is on fluid restriction at 1500 cc/h hyponatremia most likely secondary to poor solute intake. (2) Alcohol abuse Is this a current diagnosis for this admission?: Yes Plan: 03/28/2019-serum alcohol level is 143. To watch for the DTs. Started him on Ativan 2 mg IV every 2 hours PRN for agitation. Also started him on banana bag daily. 03/29/2019-patient admitted with alcohol abuse serum alcohol level is 143 he is on IV Ativan every 2 hours as needed and banana bag we are going to add Valium to the present medication so far he is doing okay. (3) Skin tear of left forearm without complication Qualifiers: Encounter type: sequela Qualified Code(s): S51.812S - Laceration without foreign body of left forearm, sequela Is this a current diagnosis for this admission?: Yes (4) Chest pain Qualifiers: Chest pain type: unspecified Qualified Code(s): R07.9 - Chest pain, unspecified Is this a current diagnosis for this admission?: Yes Plan: 03/28/2019-patient came in with nonspecific chest pains initial troponin was negative. Plan to do the serial EKGs and troponins. 03/29/2019-patient denies any chest pains this morning. Troponins are negative so far. (5) COPD (chronic obstructive pulmonary disease) Qualifiers: COPD type: unspecified COPD Qualified Code(s): J44.9 - Chronic obstructive pulmonary disease, unspecified Is this a current diagnosis for this admission?: No (7) Tobacco use disorder, severe, dependence Is this a current diagnosis for this admission?: No - Time Time Spent with patient: 25-34 minutes Medications reviewed and adjusted accordingly: Yes Anticipated discharge: Home
[2019-03-29] MEDS ORDERED: FLUTICASONE/VILANTEROL 200-25 MCG/DOSE IH SCH (10:00)
[2019-03-29] MEDS ORDERED: NORMAL SALINE 1000 ML 1,000 ML with POTASSIUM CHLORIDE 20 MEQ, MAGNESIUM SULFATE 8 MEQ,... IV SCH ×5 (10:00)
[2019-03-29] MEDS ORDERED: CLOPIDOGREL BISULFATE 75 MG TABLET PO SCH (10:00)
[2019-03-29] MEDS ORDERED: LORAZEPAM INJ 2 MG/1 ML VIAL IV PRN (10:47)
[2019-03-29 12:21] VITALS: BP 166/80
--- NOTE | 2019-03-30 07:43 | Left Against Medical Advice ---
Against Medical Advice Admission Date/Time: 03/28/19 16:13 Primary Care Provider: LESLY BRYAN MD Date of Patient Emigration: 03/28/19 - Diagnosis: (1) Hyponatremia Is this a current diagnosis for this admission?: Yes (2) Alcohol abuse Is this a current diagnosis for this admission?: Yes (3) Skin tear of left forearm without complication Is this a current diagnosis for this admission?: Yes (4) Chest pain Is this a current diagnosis for this admission?: Yes (5) COPD (chronic obstructive pulmonary disease) Is this a current diagnosis for this admission?: No (7) Tobacco use disorder, severe, dependence Is this a current diagnosis for this admission?: No - Summary: Summary: Please see Admission and Progress Notes as well. LEIF NUÑEZ is a 63 M, who LEFT AGAINST MEDICAL ADVICE. The Patient was admitted on 03/28/19 16:13. [id number] male with history of alcohol abuse alcohol level at the time of admission 143 and sodium of 121 he was placed in telemetry on fluid restriction and placed under watch for DTs started on Valium and Ativan patient started feeling better his sodium was improved to 126 yesterday morning letter on that evening patient decided to sign AMA and left the hospital. The nurse Cathy and I tried to convince him to stay in the hospital , all our efforts are unsuccessful patient signed AMA left the hospital.
== END 2019-03-29 14:27 | disposition left against medical advice (07) | DRG 641 ==
LOC: ER 10:23 → EH 16:13 → UNDOADMIN 16:31 → 4S 17:43
PROVIDERS: ADMIT Internal Medicine; ATTEND Internal Medicine
DX: E87.1 Hypo-osmolality and hyponatremia (principal); F10.129 Alcohol abuse with intoxication, unspecified; Y90.6 Blood alcohol level of 120-199 mg/100 ml; S51.812A Laceration without foreign body of left forearm, initial encounter; W19.XXXA Unspecified fall, initial encounter; R07.9 Chest pain, unspecified; J44.9 Chronic obstructive pulmonary disease, unspecified; F17.200 Nicotine dependence, unspecified, uncomplicated; I25.10 Atherosclerotic heart disease of native coronary artery without angina pectoris; Z95.5 Presence of coronary angioplasty implant and graft; I25.2 Old myocardial infarction
CPT/HCPCS: 36415; 71045; 80053; 80307; 81001; 82550; 82553; 82962; 83036; 84443; 84484; 85025; J1644; J2060; J3411; J3475; J3480; J3490; J7030; J7120; J7620

== ENCOUNTER 2019-03-30 20:03 | Emergency (ER) | payer MEDICARE, MEDICAID ==
--- NOTE | 2019-03-31 19:02 | EKG REPORT ---
SEVERITY:- NORMAL ECG - SINUS RHYTHM : Confirmed by: Lázaro De La Garza MD 31-Mar-2019 19:01:44
== END 2019-03-30 20:30 | disposition left against medical advice (07) ==
LOC: ER 20:03
DX: Z53.21 Procedure and treatment not carried out due to patient leaving prior to being seen by health care provider (principal); M79.602 Pain in left arm
CPT/HCPCS: 93005; 93010

== ENCOUNTER 2019-04-30 17:47 | Emergency (ER) | payer MEDICARE, MEDICAID ==
[2019-04-30 17:58] VITALS: BP 153/87
== END 2019-04-30 18:20 | disposition left against medical advice (07) ==
LOC: ER 17:47
DX: Z53.21 Procedure and treatment not carried out due to patient leaving prior to being seen by health care provider (principal)

== ENCOUNTER 2019-05-08 08:48 | Emergency (ER) | payer MEDICARE, MEDICAID ==
[2019-05-08] MEDS ORDERED: ASPIRIN 81 MG TABLET, CHEWABLE PO ONE (09:04)
--- NOTE | 2019-05-08 09:11 | ER Document Report ---
ED Medical Screen (RME) - General Chief Complaint: Chest Pain > 30 Stated Complaint: CHEST PAIN Time Seen by Provider: 05/08/19 09:05 Primary Care Provider: LESLY BRYAN MD [Primary Care Provider] - Follow up as needed Mode of Arrival: Ambulatory Information source: Patient Notes: 63-year-old male presented to ED for complaint of substernal chest pain that started yesterday. He states this is the same chest pain he has all the time. He states that he also is short of breath which he has all the time. He continues to smoke a pack a day and drinks a 12 pack a day. Patient is alert oriented respirations regular and unlabored speaking in full sentences. He was able to walk to his room. I have greeted and performed a rapid initial assessment of this patient. A comprehensive ED assessment and evaluation of the patient, analysis of test results and completion of medical decision making process will be conducted by an additional ED providers. TRAVEL OUTSIDE OF THE [place] 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 Takes ASA now, used to be on hypertensive medications, Hx Hypercholesterolemia, Hx Hypertension Pulmonary Medical History: Reports: Hx Asthma, Hx COPD, Hx Pneumonia Denies: Hx Bronchitis Neurological Medical History: Denies: Hx Cerebrovascular Accident, Hx Seizures Endocrine Medical History: Denies: Hx Diabetes Mellitus Type 1, Hx Diabetes Mellitus Type 2, Hx Hyperthyroidism, Hx Hypothyroidism Renal/ Medical History: Denies: Hx Peritoneal Dialysis GI Medical History: Denies: Hx Cirrhosis, Hx Hepatitis Musculoskeltal Medical History: Reports Hx Arthritis - chronic spine disorder, Denies Hx Gout, Reports Hx Musculoskeletal Deformity, Reports Hx Musculoskeletal Trauma Skin Medical History: Denies Hx Eczema, Denies Hx Psoriasis Psychiatric Medical History: Reports: Hx Borderline Personality Disorder, Hx Depression Traumatic Medical History: Reports: Hx Fractures - Left rib fractures with pneumothorax requiring chest tube on 05/23/2016 Infectious Medical History: Denies: Hx Hepatitis Past Surgical History: Reports: Hx Cardiac Catheterization, Hx Cardiac Surgery - stents, Other - Abdominal hernia repair - Immunizations Immunizations up to date: Yes Hx Diphtheria, Pertussis, Tetanus Vaccination: Yes History of Influenza Vaccine for 06/2017 - 11/2017 Season: Yes Influenza Administration Date for 06/2017 - 11/2017 Season: 06/16/17 Physical Exam - Vital signs Vitals: Temp Pulse Resp BP Pulse Ox 97.9 F 79 22 H 136/80 H 95 05/08/19 08:51 05/08/19 08:51 05/08/19 08:51 05/08/19 08:51 05/08/19 08:51 Course - Vital Signs Vital signs: Temp Pulse Resp BP Pulse Ox 97.9 F 79 22 H 136/80 H 95 05/08/19 08:51 05/08/19 08:51 05/08/19 08:51 05/08/19 08:51 05/08/19 08:51 Doctor's Discharge - Discharge Referrals: LESLY BRYAN MD [Primary Care Provider] - Follow up as needed
--- NOTE | 2019-05-08 09:40 | RADIOLOGY REPORT (SQ) ---
EXAM DESCRIPTION: CHEST 2 VIEWS COMPLETED DATE/TIME: 05/08/2019 9:30 am REASON FOR STUDY: chest pain COMPARISON: 03/28/2019 EXAM PARAMETERS: NUMBER OF VIEWS: two views TECHNIQUE: Digital Frontal and Lateral radiographic views of the chest acquired. RADIATION DOSE: NA LIMITATIONS: none FINDINGS: LUNGS AND PLEURA: No opacities, masses or pneumothorax. No pleural effusion. MEDIASTINUM AND HILAR STRUCTURES: No masses or contour abnormalities. HEART AND VASCULAR STRUCTURES: Heart normal size. No evidence for failure. BONES: Exaggerated kyphosis of the thoracic spine with multiple wedge deformities. Callused fracture deformities of the bilateral ribs. HARDWARE: None in the chest. OTHER: No other significant finding. IMPRESSION: No acute abnormality of the lungs. No focal airspace opacity. TECHNICAL DOCUMENTATION: JOB ID: [id number] [employer]- All Rights Reserved Reading location - IP/workstation name: [email or web address]
[2019-05-08] MEDS ORDERED: NORMAL SALINE 1000 ML 1,000 ML IV ONE (09:43)
--- NOTE | 2019-05-08 09:45 | ER Document Report ---
ED General - General Chief Complaint: Chest Pain > 30 Stated Complaint: CHEST PAIN Time Seen by Provider: 05/08/19 09:05 Primary Care Provider: LESLY BRYAN MD [Primary Care Provider] - Follow up as needed Mode of Arrival: Ambulatory TRAVEL OUTSIDE OF THE [place] IN LAST 30 DAYS: No - HPI Notes: Patient presents for concern of chest pain. Patient has been to the ED several times for similar symptoms and states that his chest discomfort are similar to prior. Patient is on Plavix and states that he has been taking all his medications as prescribed. No recent fevers cough congestion or recent illnesses. Patient alert oriented well-appearing in the emergency department. 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 Takes ASA now, used to be on hypertensive medications, Hx Hypercholesterolemia, Hx Hypertension Pulmonary Medical History: Reports: Hx Asthma, Hx COPD, Hx Pneumonia Denies: Hx Bronchitis Neurological Medical History: Denies: Hx Cerebrovascular Accident, Hx Seizures Endocrine Medical History: Denies: Hx Diabetes Mellitus Type 1, Hx Diabetes Mellitus Type 2, Hx Hyperthyroidism, Hx Hypothyroidism Renal/ Medical History: Denies: Hx Peritoneal Dialysis GI Medical History: Denies: Hx Cirrhosis, Hx Hepatitis Musculoskeletal Medical History: Reports Hx Arthritis - chronic spine disorder, Denies Hx Gout, Reports Hx Musculoskeletal Deformity, Reports Hx Musculoskeletal Trauma Skin Medical History: Denies Hx Eczema, Denies Hx Psoriasis Psychiatric Medical History: Reports: Hx Borderline Personality Disorder, Hx Depression Traumatic Medical History: Reports: Hx Fractures - Left rib fractures with pneumothorax requiring chest tube on 05/23/2016 Infectious Medical History: Denies: Hx Hepatitis Past Surgical History: Reports: Hx Cardiac Catheterization, Hx Cardiac Surgery - stents, Other - Abdominal hernia repair - Immunizations Immunizations up to date: Yes Hx Diphtheria, Pertussis, Tetanus Vaccination: Yes Hx Pneumococcal Vaccination: 02/22/13 Review of Systems - Review of Systems Constitutional: No symptoms reported EENT: No symptoms reported Cardiovascular: See HPI Respiratory: No symptoms reported Gastrointestinal: No symptoms reported Genitourinary: No symptoms reported Male Genitourinary: No symptoms reported Musculoskeletal: No symptoms reported Skin: No symptoms reported Hematologic/Lymphatic: No symptoms reported Neurological/Psychological: No symptoms reported Physical Exam - Vital signs Vitals: Temp Pulse Resp BP Pulse Ox 97.9 F 79 22 H 136/80 H 95 05/08/19 08:51 05/08/19 08:51 05/08/19 08:51 05/08/19 08:51 05/08/19 08:51 - General General appearance: Appears well, Alert - HEENT Head: Normocephalic, Atraumatic Eyes: Normal - Respiratory Respiratory status: No respiratory distress Chest status: Nontender Breath sounds: Normal - Cardiovascular Rhythm: Regular Heart sounds: Normal auscultation Murmur: No - Abdominal Inspection: Normal Distension: No distension Bowel sounds: Normal Tenderness: Nontender - Back Back: Normal, Nontender - Extremities General upper extremity: Normal inspection, Normal ROM General lower extremity: Normal inspection, Normal ROM - Neurological Neuro grossly intact: Yes Cognition: Normal Orientation: AAOx4 Course - Re-evaluation Re-evalutation: 05/08/19 11:03 She chose to leave [facility]. I discussed risks with him including . Patient verbally acknowledged and understood that he at the left. He signed [facility] paperwork. I advised to come back at any time if he has any other concerns. - Vital Signs Vital signs: Temp Pulse Resp BP Pulse Ox 98.1 F 18 L 18 112/66 98 05/08/19 11:03 05/08/19 11:03 05/08/19 11:03 05/08/19 11:03 05/08/19 11:03 - Laboratory Result Diagrams: 05/08/19 09:15 05/08/19 09:15 Laboratory results interpreted by me: 05/08/19 05/08/19 05/08/19 09:15 09:15 09:15 RBC 4.29 L Hgb 10.9 L Hct 32.4 L MCV 76 L MCH 25.3 L RDW 20.[address] [place] % (Auto) 13.3 H Sodium 121.7 L Chloride 84 L BUN 6 L AST 62 H Creatine Kinase 797 H CK-MB (CK-2) 11.10 H Discharge - Discharge Clinical Impression: Chest pain Qualifiers: Chest pain type: unspecified Qualified Code(s): R07.9 - Chest pain, unspecified Condition: Good Disposition: AGAINST MEDICAL ADVICE Referrals: LESLY BRYAN MD [Primary Care Provider] - Follow up as needed
[2019-05-08 09:47] LABS: ABSOLUTE BASOPHILS # (AUTO) 0.1 10^3/uL (0.0-0.2); ABSOLUTE EOSINOPHILS # (AUTO) 0.1 10^3/uL (0.0-0.6); ABSOLUTE LYMPHOCYTES (AUTO) 1.8 10^3/uL (0.5-4.7); ABSOLUTE NEUT (AUTO) 4.2 10^3/uL (1.7-8.2); ALBUMIN 4.3 g/dL (3.5-5.0); ALKALINE PHOSPHATASE 68 U/L (38-126); ANION GAP 13 (5-19); ASPARTATE AMINO TRANSFERASE 62 U/L (17-59); BASOPHILS % (AUTO) 1.2 % (0-2); BILIRUBIN,DIRECT 0.2 mg/dL (0.0-0.4); BILIRUBIN,TOTAL 0.2 mg/dL (0.2-1.3); BLOOD UREA NITROGEN 6 mg/dL (7-20); CALCIUM 8.5 mg/dL (8.4-10.2); CARBON DIOXIDE 25 mmol/L (22-30); CHLORIDE 84 mmol/L (98-107); CREATINE KINASE 797 U/L (55-170); EOSINOPHILS % (AUTO) 1.3 % (0-6); GLUCOSE 78 mg/dL (75-110); HEMATOCRIT 32.4 % (37.9-51.0); HEMOGLOBIN 10.9 g/dL (13.5-17.0); LYMPHOCYTES % (AUTO) 24.9 % (13-45); MEAN CORPUSCULAR HEMOGLOBIN 25.3 pg (27.0-33.4); MEAN CORPUSCULAR HGB CONC 33.5 g/dL (32.0-36.0); MEAN CORPUSCULAR VOLUME 76 fl (80-97); MONOCYTES % (AUTO) 13.3 % (3-13); PLATELET COUNT 316 10^3/uL (150-450); POTASSIUM 4.3 mmol/L (3.6-5.0); RED BLOOD COUNT 4.29 10^6/uL (4.35-5.55); RED CELL DISTRIBUTION WIDTH 20.3 % (11.5-14.0); SEGMENTED NEUTROPHILS % (AUTO) 59.3 % (42-78); TOTAL CELLS COUNTED % (AUTO) 100 %; TOTAL PROTEIN 7.5 g/dL (6.3-8.2); WHITE BLOOD COUNT 7.2 10^3/uL (4.0-10.5)
[2019-05-08 09:59] LABS: TROPONIN I < 0.012 ng/mL
[2019-05-08 10:33] LABS: APPEARANCE,URINE CLEAR; BILIRUBIN,URINE NEGATIVE (NEGATIVE); COLOR,URINE STRAW; GLUCOSE, URINE NEGATIVE (NEGATIVE); KETONES,URINE NEGATIVE (NEGATIVE); LEUKOCYTE ESTERASE,URINE NEGATIVE (NEGATIVE); NITRITE,URINE NEGATIVE (NEGATIVE); PROTEIN,URINE NEGATIVE (NEGATIVE); URINE SPECIFIC GRAVITY 1.004; UROBILINOGEN,URINE NEGATIVE mg/dL (<2.0)
[2019-05-08 11:04] VITALS: BP 112/66
--- NOTE | 2019-05-08 12:24 | EKG REPORT ---
SEVERITY:- NORMAL ECG - SINUS RHYTHM : Confirmed by: Sruthi Rivas MD 08-May-2019 12:24:02
== END 2019-05-08 11:04 | disposition left against medical advice (07) ==
LOC: ER 08:48
DX: R07.9 Chest pain, unspecified (principal); Z79.01 Long term (current) use of anticoagulants; F17.200 Nicotine dependence, unspecified, uncomplicated; I25.10 Atherosclerotic heart disease of native coronary artery without angina pectoris; I25.2 Old myocardial infarction; I10 Essential (primary) hypertension; J44.9 Chronic obstructive pulmonary disease, unspecified
CPT/HCPCS: 93005; 99284; 96360; 36415; 82553; 82550; 83690; 85025; 80053; 81001; 84484; 71046; 93010; A9270; J7030

== ENCOUNTER 2019-05-08 21:11 | Emergency (ER) | payer MEDICARE, MEDICAID ==
[2019-05-08 21:31] VITALS: BP 95/57
--- NOTE | 2019-05-08 22:45 | ER Document Report ---
ED Medical Screen (RME) - General Chief Complaint: Chest Pain Stated Complaint: CHEST PAIN Time Seen by Provider: 05/08/19 22:43 Primary Care Provider: LESLY BRYAN MD [Primary Care Provider] - Follow up as needed Notes: 63-year-old male chief complaint of pain in his upper abdomen and lower chest for the past couple of days. Denies fever, cough, vomiting, difficulty eating, flank pain. Has a history of COPD and continues to smoke. Also has a history of CAD and stents. TRAVEL OUTSIDE OF THE [place] 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 Takes ASA now, used to be on hypertensive medications, Hx Hypercholesterolemia, Hx Hypertension Pulmonary Medical History: Reports: Hx Asthma, Hx COPD, Hx Pneumonia Denies: Hx Bronchitis Neurological Medical History: Denies: Hx Cerebrovascular Accident, Hx Seizures Endocrine Medical History: Denies: Hx Diabetes Mellitus Type 1, Hx Diabetes Mellitus Type 2, Hx Hyperthyroidism, Hx Hypothyroidism Renal/ Medical History: Denies: Hx Peritoneal Dialysis GI Medical History: Denies: Hx Cirrhosis, Hx Hepatitis Musculoskeltal Medical History: Reports Hx Arthritis - chronic spine disorder, Denies Hx Gout, Reports Hx Musculoskeletal Deformity, Reports Hx Musculoskeletal Trauma Skin Medical History: Denies Hx Eczema, Denies Hx Psoriasis Psychiatric Medical History: Reports: Hx Borderline Personality Disorder, Hx Depression Traumatic Medical History: Reports: Hx Fractures - Left rib fractures with pneumothorax requiring chest tube on 05/23/2016 Infectious Medical History: Denies: Hx Hepatitis Past Surgical History: Reports: Hx Cardiac Catheterization, Hx Cardiac Surgery - stents, Other - Abdominal hernia repair - Immunizations Immunizations up to date: Yes Hx Diphtheria, Pertussis, Tetanus Vaccination: Yes History of Influenza Vaccine for 06/2017 - 11/2017 Season: Yes Influenza Administration Date for 06/2017 - 11/2017 Season: 06/16/17 Physical Exam - Vital signs Vitals: Temp Pulse BP Pulse Ox 97.7 F 71 95/57 L 93 05/08/19 21:28 05/08/19 21:28 05/08/19 21:28 05/08/19 21:28 - Respiratory Respiratory status: No respiratory distress. No: Labored, Tachypnea Breath sounds: Normal, Decreased air movement. No: Nonproductive cough, Wheezing Course - Re-evaluation Re-evalutation: Borderline oxygen, however patient is talkative, yelling, lungs are clear, probably chronic now I have greeted and performed a rapid initial assessment of this patient. A comprehensive ED assessment and evaluation of the patient, analysis of test results and completion of the medical decision making process will be conducted by additional ED providers. - Vital Signs Vital signs: Temp Pulse Resp BP Pulse Ox 97.7 F 71 95/57 L 93 05/08/19 21:28 05/08/19 21:28 05/08/19 21:28 05/08/19 21:28 Doctor's Discharge - Discharge Referrals: LESLY BRYAN MD [Primary Care Provider] - Follow up as needed
--- NOTE | 2019-05-09 19:07 | EKG REPORT ---
SEVERITY:- NORMAL ECG - SINUS RHYTHM : Confirmed by: Sruthi Rivas MD 09-May-2019 19:06:18
== END 2019-05-08 22:50 | disposition left against medical advice (07) ==
LOC: ER 21:11
DX: Z53.21 Procedure and treatment not carried out due to patient leaving prior to being seen by health care provider (principal); R07.9 Chest pain, unspecified; R10.10 Upper abdominal pain, unspecified; F17.200 Nicotine dependence, unspecified, uncomplicated; I25.10 Atherosclerotic heart disease of native coronary artery without angina pectoris; I10 Essential (primary) hypertension; J44.9 Chronic obstructive pulmonary disease, unspecified
CPT/HCPCS: 93005; 93010; 99281

== ENCOUNTER 2019-05-09 17:25 | Emergency (ER) | payer MEDICARE, MEDICAID ==
[2019-05-09] MEDS ORDERED: ASPIRIN 81 MG TABLET, CHEWABLE PO ONE (18:14)
--- NOTE | 2019-05-09 18:16 | ER Document Report ---
ED Medical Screen (RME) - General Chief Complaint: Chest Pain Stated Complaint: CHEST PAIN Time Seen by Provider: 05/09/19 17:33 Primary Care Provider: LESLY BRYAN MD [Primary Care Provider] - Follow up as needed Mode of Arrival: Wheelchair Information source: Patient Notes: 63-year-old male presents to ED for complaint of shortness of breath and chest pain since early a.m. He states is the same chest pain shortness of breath he always has. He states he continues to smoke 2 packs a day drinks 12 beers or more any Saturdays 5 or 6 today. He states that the pain just was bad today so he came back to the emergency room. He is alert and oriented he is able to answer questions. He is a frequent customer to the emergency room for chest pain. Labs x-ray and monitoring has been ordered. I have greeted and performed a rapid initial assessment of this patient. A comprehensive ED assessment and evaluation of the patient, analysis of test results and completion of medical decision making process will be conducted by an additional ED providers. TRAVEL OUTSIDE OF THE [place] 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 Takes ASA now, used to be on hypertensive medications, Hx Hypercholesterolemia, Hx Hypertension Pulmonary Medical History: Reports: Hx Asthma, Hx COPD, Hx Pneumonia Denies: Hx Bronchitis Neurological Medical History: Denies: Hx Cerebrovascular Accident, Hx Seizures Endocrine Medical History: Denies: Hx Diabetes Mellitus Type 1, Hx Diabetes Mellitus Type 2, Hx Hyperthyroidism, Hx Hypothyroidism Renal/ Medical History: Denies: Hx Peritoneal Dialysis GI Medical History: Denies: Hx Cirrhosis, Hx Hepatitis Musculoskeltal Medical History: Reports Hx Arthritis - chronic spine disorder, Denies Hx Gout, Reports Hx Musculoskeletal Deformity, Reports Hx Musculoskeletal Trauma Skin Medical History: Denies Hx Eczema, Denies Hx Psoriasis Psychiatric Medical History: Reports: Hx Borderline Personality Disorder, Hx Depression Traumatic Medical History: Reports: Hx Fractures - Left rib fractures with pneumothorax requiring chest tube on 05/23/2016 Infectious Medical History: Denies: Hx Hepatitis Past Surgical History: Reports: Hx Cardiac Catheterization, Hx Cardiac Surgery - stents, Other - Abdominal hernia repair - Immunizations Immunizations up to date: Yes Hx Diphtheria, Pertussis, Tetanus Vaccination: Yes History of Influenza Vaccine for 06/2017 - 11/2017 Season: Yes Influenza Administration Date for 06/2017 - 11/2017 Season: 06/16/17 Doctor's Discharge - Discharge Referrals: LESLY BRYAN MD [Primary Care Provider] - Follow up as needed
[2019-05-09] MEDS ORDERED: MORPHINE SULFATE 10 MG/ML INJ IV ONE (18:23)
[2019-05-09] MEDS ORDERED: ONDANSETRON HCL INJ/PF 4 MG/2 ML SDV IV ONE (18:23)
[2019-05-09] MEDS ORDERED: IPRATROPIUM/ALBUTEROL 0.5-2.5 MG/3 ML AMPUL NEB ONE (18:23)
--- NOTE | 2019-05-09 18:27 | ER Document Report ---
ED General - General Chief Complaint: Chest Pain Stated Complaint: CHEST PAIN Time Seen by Provider: 05/09/19 17:33 Primary Care Provider: LESLY BRYAN MD [Primary Care Provider] - Follow up as needed Mode of Arrival: Wheelchair TRAVEL OUTSIDE OF THE [place] 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 Takes ASA now, used to be on hypertensive medications, Hx Hypercholesterolemia, Hx Hypertension Pulmonary Medical History: Reports: Hx Asthma, Hx COPD, Hx Pneumonia Denies: Hx Bronchitis Neurological Medical History: Denies: Hx Cerebrovascular Accident, Hx Seizures Endocrine Medical History: Denies: Hx Diabetes Mellitus Type 1, Hx Diabetes Mellitus Type 2, Hx Hyperthyroidism, Hx Hypothyroidism Renal/ Medical History: Denies: Hx Peritoneal Dialysis GI Medical History: Denies: Hx Cirrhosis, Hx Hepatitis Musculoskeletal Medical History: Reports Hx Arthritis - chronic spine disorder, Denies Hx Gout, Reports Hx Musculoskeletal Deformity, Reports Hx Musculoskeletal Trauma Skin Medical History: Denies Hx Eczema, Denies Hx Psoriasis Psychiatric Medical History: Reports: Hx Borderline Personality Disorder, Hx Depression Traumatic Medical History: Reports: Hx Fractures - Left rib fractures with pneumothorax requiring chest tube on 05/23/2016 Infectious Medical History: Denies: Hx Hepatitis Past Surgical History: Reports: Hx Cardiac Catheterization, Hx Cardiac Surgery - stents, Other - Abdominal hernia repair - Immunizations Immunizations up to date: Yes Hx Diphtheria, Pertussis, Tetanus Vaccination: Yes Hx Pneumococcal Vaccination: 02/22/13 Course - Laboratory Result Diagrams: 05/09/19 18:06 05/09/19 18:06 Discharge - Discharge Referrals: LESLY BRYAN MD [Primary Care Provider] - Follow up as needed
--- NOTE | 2019-05-09 18:34 | ER Document Report ---
ED General - General Chief Complaint: Chest Pain Stated Complaint: CHEST PAIN Time Seen by Provider: 05/09/19 17:33 Primary Care Provider: LESLY BRYAN MD [Primary Care Provider] - Follow up as needed Mode of Arrival: Wheelchair Information source: Patient, [facility] Records Notes: 63-year-old male with hypertension, hyperlipidemia, coronary artery disease, COPD, borderline personality disorder presents with complaint of chest pain and shortness of breath that began this morning. Patient states that he awoke with substernal pressure that he describes as constant, without radiation. Patient's shortness of breath is worse with exertion, coughing. Patient reports a new productive cough over the last few days. He does admit to continuous tobacco use. Patient did have an episode of vomiting this morning. TRAVEL OUTSIDE OF THE [place] IN LAST 30 DAYS: No - HPI Onset: This morning Onset/Duration: Gradual, Persistent Quality of pain: Pressure Severity: Moderate Pain Level: 2 Associated symptoms: Body/muscle aches, Chest pain, Productive cough, Nausea, Vomiting, Shortness of breath, Weakness. denies: Fever, Hurts to breath, Leg swelling Exacerbated by: Walking, Coughing Relieved by: Denies Similar symptoms previously: Yes Recently seen / treated by doctor: Yes - Related Data Allergies/Adverse Reactions: No Known Allergies Allergy (Verified 05/09/19 17:26) Past Medical History - General Information source: Patient - Social History Smoking Status: Current Every Day Smoker Cigarette use (# per day): Yes - 10 Smoking Education Provided: Yes - Smoking cessation counseling was provided for 4 minutes at the bedside Frequency of alcohol use: Occasional Drug Abuse: None Lives with: Alone Family History: Arthritis, CAD, COPD Patient has suicidal ideation: No Patient has homicidal ideation: No - Past Medical History Cardiac Medical History: Reports: Hx Coronary Artery Disease - cardiac stents x2, 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 Takes ASA now, used to be on hypertensive medications, Hx Hypercholesterolemia, Hx Hypertension Pulmonary Medical History: Reports: Hx Asthma, Hx COPD, Hx Pneumonia Denies: Hx Bronchitis Neurological Medical History: Denies: Hx Cerebrovascular Accident, Hx Seizures Endocrine Medical History: Denies: Hx Diabetes Mellitus Type 1, Hx Diabetes Fifi litus Type 2, Hx Hyperthyroidism, Hx Hypothyroidism Renal/ Medical History: Denies: Hx Peritoneal Dialysis GI Medical History: Denies: Hx Cirrhosis, Hx Hepatitis Musculoskeletal Medical History: Reports Hx Arthritis - chronic spine disorder, Denies Hx Gout, Reports Hx Musculoskeletal Deformity, Reports Hx Musculoskeletal Trauma Skin Medical History: Denies Hx Eczema, Denies Hx Psoriasis Psychiatric Medical History: Reports: Hx Borderline Personality Disorder, Hx Depression Traumatic Medical History: Reports: Hx Fractures - Left rib fractures with pneumothorax requiring chest tube on 05/23/2016 Infectious Medical History: Denies: Hx Hepatitis Past Surgical History: Reports: Hx Cardiac Catheterization, Hx Cardiac Surgery - stents, Other - Abdominal hernia repair - Immunizations Immunizations up to date: Yes Hx Diphtheria, Pertussis, Tetanus Vaccination: Yes Hx Pneumococcal Vaccination: 02/22/13 Review of Systems - Review of Systems Notes: REVIEW OF SYSTEMS: CONSTITUTIONAL : Denies fever, sweats. Denies recent illness. Denies weight loss, recent hospitalizations. EENT: Denies visual changes, eye pain. Denies sore throat, oral lesions, difficulty swallowing. CARDIOVASCULAR: + chest pain. Denies palpitations. Denies lower extremity edema. RESPIRATORY: + cough. + shortness of breath, wheezing. GASTROINTESTINAL: Denies abdominal pain or distention. Denies diarrhea. Denies blood in vomitus, stools, or per rectum. Denies black, tarry stools. Denies constipation. GENITOURINARY: Denies difficulty urinating, painful urination, frequency, blood in urine, testicular pain or penile discharge. MUSCULOSKELETAL: Denies back or neck pain or stiffness. Denies joint pain or swelling. SKIN: Denies rash, lesions or sores. HEMATOLOGIC : Denies easy bruising or bleeding. LYMPHATIC: Denies swollen glands. NEUROLOGICAL: Denies confusion or altered mental status. Denies loss of consciousness. Denies dizziness or lightheadedness. Denies headache. Denies weakness or paralysis. Denies problems difficulty with ambulation, slurred speech. Denies sensory loss, numbness, or tingling. Denies seizures. PSYCHIATRIC: Denies anxiety or stress. Denies depression, suicidal ideation, or Physical Exam - Vital signs Vitals: Temp 97.4 F 05/09/19 18:42 - Notes Notes: PHYSICAL EXAMINATION: GENERAL: Well-appearing, well-nourished and in no acute distress. HEAD: Atraumatic, normocephalic. EYES: Pupils equal round and reactive to light, extraocular movements intact, sclera anicteric, conjunctiva are normal. ENT: Nares patent, oropharynx clear without exudates. Moist mucous membranes. NECK: Normal range of motion, supple without lymphadenopathy LUNGS: Diminished breath sounds bilaterally with expiratory wheezing. No increased work of breathing, no hypoxia, no tachypnea. HEART: Regular rate and rhythm without murmurs ABDOMEN: Soft, nontender, nondistended abdomen. No guarding, no rebound. No masses appreciated. Musculoskeletal: Normal range of motion, no pitting or edema. No cyanosis. NEUROLOGICAL: Cranial nerves grossly intact. Normal speech, normal gait. Normal sensory, motor exams PSYCH: Normal mood, normal affect. SKIN: Scattered areas of bruising on the upper and lower extremities. Skin tear of the left forearm with no active bleeding. Course - Re-evaluation Re-evalutation: Laboratory 05/09/19 05/09/19 05/09/19 18:06 18:06 18:06 WBC 4.6 RBC 4.40 Hgb 11.1 L Hct 33.0 L MCV 75 L MCH 25.2 L MCHC 33.7 RDW 20.4 H Plt Count 330 Lymph % (Auto) Not Reportable Crenshaw % (Auto) Not Reportable Eos % (Auto) Not Reportable Baso % (Auto) Not Reportable Absolute Neuts (auto) Not Reportable Absolute Lymphs (auto) Not Reportable Absolute Monos (auto) Not Reportable Absolute Eos (auto) Not Reportable Absolute Basos (auto) Not Reportable Total Counted 100 Seg Neutrophils % Not Reportable Seg Neuts % (Manual) 59 Lymphocytes % (Manual) 25 Monocytes % (Manual) 10 Eosinophils % (Manual) 3 Basophils % (Manual) 3 H Abs Neuts (Manual) 2.7 Abs Lymphs (Manual) 1.2 Abs Monocytes (Manual) 0.5 Absolute Eos (Manual) 0.1 Abs Basophils (Manual) 0.1 Platelet Comment ADEQUATE Polychromasia SLIGHT Hypochromasia 1+ Anisocytosis 2+ Microcytosis 1+ Sodium 116.4 L* Potassium 4.1 Chloride 80 L Carbon Dioxide 25 Anion Gap 11 BUN 4 L Creatinine 0.53 Est GFR ( Amer) > 60 Est GFR (MDRD) Non-Af > 60 Glucose 86 Calcium 7.8 L Total Bilirubin 0.2 Direct Bilirubin 0.1 Neonat Total Bilirubin Not Reportable Neonat Direct Bilirubin Not Reportable Neonat Indirect Bili Not Reportable AST 67 H ALT 24 Alkaline Phosphatase 67 Creatine Kinase 958 H CK-MB (CK-2) 17.20 H Troponin I < 0.012 NT-Pro-B Natriuret Pep Total Protein 7.0 Albumin 4.0 Lipase 64.8 05/09/19 18:06 WBC RBC Hgb Hct MCV MCH MCHC RDW Plt Count Lymph % (Auto) Crenshaw % (Auto) Eos % (Auto) Baso % (Auto) Absolute Neuts (auto) Absolute Lymphs (auto) Absolute Monos (auto) Absolute Eos (auto) Absolute Basos (auto) Total Counted Seg Neutrophils % Seg Neuts % (Manual) Lymphocytes % (Manual) Monocytes % (Manual) Eosinophils % (Manual) Basophils % (Manual) Abs Neuts (Manual) Abs Lymphs (Manual) Abs Monocytes (Manual) Absolute Eos (Manual) Abs Basophils (Manual) Platelet Comment Polychromasia Hypochromasia Anisocytosis Microcytosis Sodium Potassium Chloride Carbon Dioxide Anion Gap BUN Creatinine Est GFR ( Amer) Est GFR (MDRD) Non-Af Glucose Calcium Total Bilirubin Direct Bilirubin Neonat Total Bilirubin Neonat Direct Bilirubin Neonat Indirect Bili AST ALT Alkaline Phosphatase Creatine Kinase CK-MB (CK-2) Troponin I NT-Pro-B Natriuret Pep 126 Total Protein Albumin Lipase Chest X-Ray 05/09/19 17:34 IMPRESSION: Mild hyperinflation. Consider COPD. Temp Pulse Resp BP Pulse Ox 97.4 F 05/09/19 18:42 05/09/19 18:34 63-year-old male presents with chest pain, shortness of breath and new productive cough. He is alert and oriented x3. Ambulates without difficulty. Exam is significant for diminished breath sounds and expiratory wheezing. Patient is in no acute distress. Does not appear toxic or dehydrated. 05/09/19 19:04 Nursing reports that the patient became angry, started cursing at her and began walking out of the emergency department. I did attempt to stop the patient from leaving, but he states that he refuses "deal with you fucking people". Patient has numerous emergency department visits where he leaves without being seen, leaves AGAINST MEDICAL ADVICE or elopes. I did attempt several times to stop the patient from leaving the emergency department. Patient's patient continues to CMP does show hyponatremia which I did try to explain to the patient could be dangerous, life threatening but patient continues to walk out of the emergency department. He is alert and oriented x4, ambulates without difficulty, does not appear intoxicated. He was encouraged to return at any time. Patient walked out of the emergency department cursing. Apparently EMS has requested to be informed if the patient again leaves the emergency department before a full evaluation because of his frequent abuse of emergency resources. Patient eloped prior to full evaluation. 05/10/19 06:07 - Vital Signs Vital signs: Temp Pulse Resp BP Pulse Ox 97.4 F 05/09/19 18:42 - Laboratory Result Diagrams: 05/09/19 18:06 05/09/19 18:06 Laboratory results interpreted by me: 05/09/19 05/09/19 05/09/19 18:06 18:06 18:06 Hgb 11.1 L Hct 33.0 L MCV 75 L MCH 25.2 L RDW 20.4 H Basophils % (Manual) 3 H Sodium 116.4 L* Chloride 80 L BUN 4 L Calcium 7.8 L AST 67 H Creatine Kinase 958 H CK-MB (CK-2) 17.20 H - Diagnostic Test Radiology reviewed: Image reviewed, Reports reviewed - EKG Interpretation by Me EKG shows normal: Sinus rhythm Rate: Normal Rhythm: NSR Discharge - Discharge Clinical Impression: Hyponatremia COPD (chronic obstructive pulmonary disease) Qualifiers: COPD type: unspecified COPD Qualified Code(s): J44.9 - Chronic obstructive pulmonary disease, unspecified Chest pain Qualifiers: Chest pain type: unspecified Qualified Code(s): R07.9 - Chest pain, unspecified Condition: Fair Disposition: ELOPED Referrals: LESLY BRYAN MD [Primary Care Provider] - Follow up as needed
[2019-05-09 18:36] LABS: HEMOGLOBIN 11.1 g/dL (13.5-17.0); MEAN CORPUSCULAR HEMOGLOBIN 25.2 pg (27.0-33.4); MEAN CORPUSCULAR HGB CONC 33.7 g/dL (32.0-36.0); MEAN CORPUSCULAR VOLUME 75 fl (80-97); PLATELET COUNT 330 10^3/uL (150-450); RED CELL DISTRIBUTION WIDTH 20.4 % (11.5-14.0); WHITE BLOOD COUNT 4.6 10^3/uL (4.0-10.5)
--- NOTE | 2019-05-09 18:43 | RADIOLOGY REPORT (SQ) ---
EXAM DESCRIPTION: CHEST 2 VIEWS COMPLETED DATE/TIME: 05/09/2019 6:08 pm REASON FOR STUDY: chest pain COMPARISON: 05/08/2019 EXAM PARAMETERS: NUMBER OF VIEWS: two views TECHNIQUE: Digital Frontal and Lateral radiographic views of the chest acquired. RADIATION DOSE: NA LIMITATIONS: none FINDINGS: LUNGS AND PLEURA: Hyperinflation compatible with mild COPD. No acute infiltrates seen. MEDIASTINUM AND HILAR STRUCTURES: No masses or contour abnormalities. HEART AND VASCULAR STRUCTURES: Normal heart size and pulmonary vasculature. BONES: Marked dorsal kyphosis with multiple old wedge compression fractures. Multiple old healed lef t posterior rib fractures HARDWARE: None in the chest. OTHER: Image artifacts secondary to patient's hand and forearm over left lung base. IMPRESSION: Mild hyperinflation. Consider COPD. TECHNICAL DOCUMENTATION: JOB ID: [id number] [employer]- All Rights Reserved Reading location - IP/workstation name: [email or web address]
[2019-05-09 18:44] LABS: ALKALINE PHOSPHATASE 67 U/L (38-126); ASPARTATE AMINO TRANSFERASE 67 U/L (17-59); BILIRUBIN,DIRECT 0.1 mg/dL (0.0-0.4); BILIRUBIN,TOTAL 0.2 mg/dL (0.2-1.3); BLOOD UREA NITROGEN 4 mg/dL (7-20); CALCIUM 7.8 mg/dL (8.4-10.2); CARBON DIOXIDE 25 mmol/L (22-30); CHLORIDE 80 mmol/L (98-107); CREATINE KINASE 958 U/L (55-170); GLUCOSE 86 mg/dL (75-110); POTASSIUM 4.1 mmol/L (3.6-5.0)
[2019-05-09 18:45] LABS: ANION GAP 11 (5-19)
[2019-05-09 18:56] LABS: TROPONIN I < 0.012 ng/mL
[2019-05-09 19:05] LABS: ABSOLUTE LYMPHOCYTES# (MANUAL) 1.2 10^3/uL (0.5-4.7); ABSOLUTE MONOCYTES # (MANUAL) 0.5 10^3/uL (0.1-1.4); BASOPHILS % (MANUAL) 3 % (0-2); EOSINOPHILS % (MANUAL) 3 % (0-6); LYMPHOCYTES % (MANUAL) 25 % (13-45); MONOCYTES % (MANUAL) 10 % (3-13); SEGMENTED NEUTROPHILS % (MAN) 59 % (42-78); TOTAL CELLS COUNTED 100
[2019-05-09 19:07] LABS: ANISOCYTOSIS 2+; HYPOCHROMASIA 1+; PLATELET COMMENT ADEQUATE; POLYCHROMASIA SLIGHT
--- NOTE | 2019-05-09 19:07 | EKG REPORT ---
SEVERITY:- NORMAL ECG - SINUS RHYTHM : Confirmed by: Sruthi Rivas MD 09-May-2019 19:06:14
== END 2019-05-09 19:28 | disposition left against medical advice (07) ==
LOC: ER 17:25
DX: E87.1 Hypo-osmolality and hyponatremia (principal); J44.9 Chronic obstructive pulmonary disease, unspecified; R07.9 Chest pain, unspecified; F17.210 Nicotine dependence, cigarettes, uncomplicated; I10 Essential (primary) hypertension; E78.5 Hyperlipidemia, unspecified; I25.10 Atherosclerotic heart disease of native coronary artery without angina pectoris; Z79.82 Long term (current) use of aspirin
CPT/HCPCS: 93005; 99406; 99281; 36415; 82553; 82550; 83690; 85025; 80053; 84484; 83880; 71046; 93010; A9270

== ENCOUNTER 2019-05-15 12:57 | Emergency (ER) | payer MEDICARE, MEDICAID | END 2019-05-15 13:00 | disposition left against medical advice (07) | LOC: ER 12:57 | DX: Z53.21 Procedure and treatment not carried out due to patient leaving prior to being seen by health care provider (principal) ==

== ENCOUNTER 2019-05-19 16:48 | Emergency (ER) | payer MEDICAID, MEDICARE ==
[2019-05-19] MEDS ORDERED: DEXAMETHASONE SOD PHOS INJ 10 MG/1 ML VIAL IM ONE (17:01)
[2019-05-19] MEDS ORDERED: IPRATROPIUM/ALBUTEROL 0.5-2.5 MG/3 ML AMPUL NEB ONE (17:02)
[2019-05-19] MEDS ORDERED: ALBUTEROL SULFATE 0.083% NEB 2.5 MG/3 ML AMPUL NEB ONE (17:02)
--- NOTE | 2019-05-19 17:04 | ER Document Report ---
ED Medical Screen (RME) - General Chief Complaint: Breathing Difficulty Stated Complaint: TROUBLE BREATHING Time Seen by Provider: 05/19/19 16:56 Primary Care Provider: LESLY BRYAN MD [Primary Care Provider] - Follow up as needed Mode of Arrival: Ambulatory Information source: Patient Notes: 63-year-old male presented to ED for complaint of shortness of breath feeling tight. He states he has a history of COPD multiple heart attacks was for stents spinal problems high blood pressure and cholesterol. Patient is alert oriented lungs are very diminished with crackles and wheezes. We will give him breathing treatments Decadron give blood work and chest x-ray. I have greeted and performed a rapid initial assessment of this patient. A comprehensive ED assessment and evaluation of the patient, analysis of test results and completion of medical decision making process will be conducted by an additional ED providers. TRAVEL OUTSIDE OF THE [place] 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 Takes ASA now, used to be on hypertensive medications, Hx Hypercholesterolemia, Hx Hypertension Pulmonary Medical History: Reports: Hx Asthma, Hx COPD, Hx Pneumonia Denies: Hx Bronchitis Neurological Medical History: Denies: Hx Cerebrovascular Accident, Hx Seizures Endocrine Medical History: Denies: Hx Diabetes Mellitus Type 1, Hx Diabetes Mellitus Type 2, Hx Hyperthyroidism, Hx Hypothyroidism Renal/ Medical History: Denies: Hx Peritoneal Dialysis GI Medical History: Denies: Hx Cirrhosis, Hx Hepatitis Musculoskeltal Medical History: Reports Hx Arthritis - chronic spine disorder, Denies Hx Gout, Reports Hx Musculoskeletal Deformity, Reports Hx Musculoskeletal Trauma Skin Medical History: Denies Hx Eczema, Denies Hx Psoriasis Psychiatric Medical History: Reports: Hx Borderline Personality Disorder, Hx Depression Traumatic Medical History: Reports: Hx Fractures - Left rib fractures with pneumothorax requiring chest tube on 05/23/2016 Infectious Medical History: Denies: Hx Hepatitis Past Surgical History: Reports: Hx Cardiac Catheterization, Hx Cardiac Surgery - stents, Other - Abdominal hernia repair - Immunizations Immunizations up to date: Yes Hx Diphtheria, Pertussis, Tetanus Vaccination: Yes History of Influenza Vaccine for 06/2017 - 11/2017 Season: Yes Influenza Administration Date for 06/2017 - 11/2017 Season: 06/16/17 Physical Exam - Vital signs Vitals: Temp Pulse Resp BP Pulse Ox 97.4 F 84 22 H 149/82 H 97 05/19/19 16:52 05/19/19 16:52 05/19/19 16:52 05/19/19 16:52 05/19/19 16:52 Course - Vital Signs Vital signs: Temp Pulse Resp BP Pulse Ox 97.4 F 84 22 H 149/82 H 97 05/19/19 16:52 05/19/19 16:52 05/19/19 16:52 05/19/19 16:52 05/19/19 16:52 Doctor's Discharge - Discharge Referrals: LESLY BRYAN MD [Primary Care Provider] - Follow up as needed
[2019-05-19] MEDS ORDERED: DEXAMETHASONE SOD PHOS INJ 10 MG/1 ML VIAL IV ONE (17:05)
[2019-05-19 17:43] LABS: ABSOLUTE BASOPHILS # (AUTO) 0.1 10^3/uL (0.0-0.2); ABSOLUTE LYMPHOCYTES (AUTO) 1.5 10^3/uL (0.5-4.7); HEMOGLOBIN 11.7 g/dL (13.5-17.0); TOTAL CELLS COUNTED % (AUTO) 100 %; WHITE BLOOD COUNT 5.6 10^3/uL (4.0-10.5)
[2019-05-19 17:51] LABS: BASOPHILS % (AUTO) 1.7 % (0-2); EOSINOPHILS % (AUTO) 0.4 % (0-6); HEMATOCRIT 34.7 % (37.9-51.0); LYMPHOCYTES % (AUTO) 26.4 % (13-45); MEAN CORPUSCULAR HEMOGLOBIN 26.1 pg (27.0-33.4); MEAN CORPUSCULAR HGB CONC 33.7 g/dL (32.0-36.0); MEAN CORPUSCULAR VOLUME 77 fl (80-97); MONOCYTES % (AUTO) 17.1 % (3-13); PLATELET COUNT 364 10^3/uL (150-450); RED BLOOD COUNT 4.49 10^6/uL (4.35-5.55); RED CELL DISTRIBUTION WIDTH 21.7 % (11.5-14.0); SEGMENTED NEUTROPHILS % (AUTO) 54.4 % (42-78)
--- NOTE | 2019-05-19 17:58 | RADIOLOGY REPORT (SQ) ---
EXAM DESCRIPTION: CHEST 2 VIEWS COMPLETED DATE/TIME: 05/19/2019 5:29 pm REASON FOR STUDY: short of breath COMPARISON: 05/09/2019 NUMBER OF VIEWS: Two view. TECHNIQUE: Frontal and lateral radiographic views of the chest acquired. LIMITATIONS: None. FINDINGS: LUNGS AND PLEURA: No opacities, masses or pneumothorax. No pleural effusion. Attenuated bl ood vessels and flattened patrick-diaphragms. MEDIASTINUM AND HILAR STRUCTURES: No masses. No contour abnormalities. HEART AND VASCULAR STRUCTURES: Heart normal in size and contour. No evidence for failure. BONES: Stable in appearance with wedge deformities in the mid dorsal spine. HARDWARE: None in the chest. OTHER: No other significant finding. IMPRESSION: COPD. NO ACUTE RADIOGRAPHIC FINDING IN THE CHEST. TECHNICAL DOCUMENTATION: JOB ID: [id number] [employer]- All Rights Reserved Reading location - IP/workstation name: [email or web address]
[2019-05-19 18:06] LABS: ALBUMIN 4.8 g/dL (3.5-5.0); ALKALINE PHOSPHATASE 84 U/L (38-126); ANION GAP 11 (5-19); ASPARTATE AMINO TRANSFERASE 68 U/L (17-59); BILIRUBIN,DIRECT 0.3 mg/dL (0.0-0.4); BILIRUBIN,TOTAL 0.5 mg/dL (0.2-1.3); BLOOD UREA NITROGEN 6 mg/dL (7-20); CARBON DIOXIDE 29 mmol/L (22-30); CHLORIDE 85 mmol/L (98-107); CREATINE KINASE 573 U/L (55-170); POTASSIUM 4.2 mmol/L (3.6-5.0); TOTAL PROTEIN 8.3 g/dL (6.3-8.2)
[2019-05-19 18:20] LABS: APPEARANCE,URINE CLEAR; BILIRUBIN,URINE NEGATIVE (NEGATIVE); COLOR,URINE YELLOW; GLUCOSE, URINE NEGATIVE (NEGATIVE); KETONES,URINE NEGATIVE (NEGATIVE); LEUKOCYTE ESTERASE,URINE NEGATIVE (NEGATIVE); NITRITE,URINE NEGATIVE (NEGATIVE); PROTEIN,URINE NEGATIVE (NEGATIVE); URINE SPECIFIC GRAVITY 1.018; UROBILINOGEN,URINE NEGATIVE mg/dL (<2.0)
[2019-05-19 18:20] LABS: TROPONIN I < 0.012 ng/mL
[2019-05-19 18:30] LABS: GLUCOSE 41 mg/dL (75-110)
[2019-05-19 18:44] VITALS: BP 116/69
--- NOTE | 2019-05-19 18:44 | ER Document Report ---
ED General - General Chief Complaint: Breathing Difficulty Stated Complaint: TROUBLE BREATHING Time Seen by Provider: 05/19/19 16:56 Primary Care Provider: LESLY BRYAN MD [Primary Care Provider] - Follow up as needed Mode of Arrival: Ambulatory TRAVEL OUTSIDE OF THE [place] IN LAST 30 DAYS: No - HPI Notes: Patient is a 63-year-old male that presents to the emergency department for chief complaint of shortness of breath. Patient has a history of COPD and multiple visits to the emergency room for COPD exacerbation. Currently he states he cannot get his Spiriva or Symbicort. He also states that he has lost his albuterol inhaler. Patient reports increasing shortness of breath over the last few days. He denies associated fever, chills, chest pain or palpitations. He states it does feel like his COPD. Patient received breathing treatments in triage and now reports feeling back to normal. Past Medical History: COPD Past Surgical History: Reviewed in chart Social History: Reviewed in chart Family History: Reviewed and noncontributory for presenting illness Allergies: Reviewed, see documented allergy list. REVIEW OF SYSTEMS: CONSTITUTIONAL : No fever No chills No diaphoresis No recent illness EENT: No vision changes No congestion No sore throat CARDIOVASCULAR: No chest pain No palpitations RESPIRATORY: shortness of breath cough difficulty breathing GASTROINTESTINAL: No abdominal pain No nausea No vomiting No diarrhea GENITOURINARY: No dysuria No hematuria No difficulty urinating MUSCULOSKELETAL: No back pain No leg pain No arm pain SKIN: No rashes No lesions LYMPHATIC: No swollen, enlarged glands. NEUROLOGICAL: No lightheadedness No headache No weakness No paresthesias PSYCHIATRIC: No anxiety No depression PHYSICAL EXAMINATION: Vital signs reviewed, nursing noted reviewed. GENERAL: Well-appearing, well-nourished and in no acute distress. HEAD: Atraumatic, normocephalic. EYES: Eyes appear normal, extraocular movements intact, sclera anicteric, conjunctiva are normal. ENT: nares patent, oropharynx clear without exudates. Moist mucous membranes. NECK: Normal range of motion, supple without lymphadenopathy LUNGS: Breath sounds mildly wheezy to auscultation bilaterally and equal. No wheezes rales or rhonchi. No tachypnea or accessory muscle use. No respiratory distress. HEART: Regular rate and rhythm without murmurs ABDOMEN: Soft, nontender, normoactive bowel sounds. No rebound, guarding, or rigidity. No masses appreciated. EXTREMITIES: Nontender, good range of motion, no pitting or edema. NEUROLOGICAL: No focal neurological deficits. Moves all extremities spontaneously Motor and sensory grossly intact on exam. PSYCH: Normal mood, normal affect. 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 Takes ASA now, used to be on hypertensive medications, Hx Hypercholesterolemia, Hx Hypertension Pulmonary Medical History: Reports: Hx Asthma, Hx COPD, Hx Pneumonia Denies: Hx Bronchitis Neurological Medical History: Denies: Hx Cerebrovascular Accident, Hx Seizures Endocrine Medical History: Denies: Hx Diabetes Mellitus Type 1, Hx Diabetes Mellitus Type 2, Hx Hyperthyroidism, Hx Hypothyroidism Renal/ Medical History: Denies: Hx Peritoneal Dialysis GI Medical History: Denies: Hx Cirrhosis, Hx Hepatitis Musculoskeletal Medical History: Reports Hx Arthritis - chronic spine disorder, Denies Hx Gout, Reports Hx Musculoskeletal Deformity, Reports Hx Musculoskeletal Trauma Skin Medical History: Denies Hx Eczema, Denies Hx Psoriasis Psychiatric Medical History: Reports: Hx Borderline Personality Disorder, Hx Depression Traumatic Medical History: Reports: Hx Fractures - Left rib fractures with pneumothorax requiring chest tube on 05/23/2016 Infectious Medical History: Denies: Hx Hepatitis Past Surgical History: Reports: Hx Cardiac Catheterization, Hx Cardiac Surgery - stents, Other - Abdominal hernia repair - Immunizations Immunizations up to date: Yes Hx Diphtheria, Pertussis, Tetanus Vaccination: Yes Hx Pneumococcal Vaccination: 02/22/13 Physical Exam - Vital signs Vitals: Temp Pulse Resp BP Pulse Ox 97.4 F 84 22 H 149/82 H 97 05/19/19 16:52 05/19/19 16:52 05/19/19 16:52 05/19/19 16:52 05/19/19 16:52 Course - Re-evaluation Re-evalutation: 05/19/19 18:42 Vitals reviewed per nurse's reviewed. Lab work shows chronic hyponatremia which is improved compared to his most recent blood work. Patient's x-ray shows COPD without underlying pneumonia or pneumothorax. Patient received albuterol, DuoNeb and Decadron in triage and reports feeling back to normal. He is now very angry that he has had to remain in the emergency room waiting for his work- up to be completed. Patient is requesting to be discharged home. He is stable for discharge and oxygenating well on room air with no respiratory distress. Laboratory 05/19/19 05/19/19 05/19/19 17:21 17:21 17:21 WBC 5.6 RBC 4.49 Hgb 11.7 L Hct 34.7 L MCV 77 L MCH 26.1 L MCHC 33.7 RDW 21.7 H Plt Count 364 Lymph % (Auto) 26.4 [place] % (Auto) 17.1 H Eos % (Auto) 0.4 Baso % (Auto) 1.7 Absolute Neuts (auto) 3.0 Absolute Lymphs (auto) 1.5 Absolute Monos (auto) 1.0 Absolute Eos (auto) 0.0 Absolute Basos (auto) 0.1 Seg Neutrophils % 54.4 Sodium 124.5 L Potassium 4.2 Chloride 85 L Carbon Dioxide 29 Anion Gap 11 BUN 6 L Creatinine 0.54 Est GFR ( Amer) > 60 Est GFR (MDRD) Non-Af > 60 Glucose 41 L Calcium 9.0 Total Bilirubin 0.5 Direct Bilirubin 0.3 Neonat Total Bilirubin Not Reportable Neonat Direct Bilirubin Not Reportable Neonat Indirect Bili Not Reportable AST 68 H ALT 24 Alkaline Phosphatase 84 Creatine Kinase 573 H CK-MB (CK-2) 11.50 H Troponin I < 0.012 Total Protein 8.3 H Albumin 4.8 Urine Color Urine Appearance Urine pH Ur Specific [place] Urine Protein Urine Glucose (UA) Urine Ketones Urine Blood Urine Nitrite Urine Bilirubin Urine Urobilinogen Ur Leukocyte Esterase Urine WBC (Auto) Urine RBC (Auto) Urine Mucus (Auto) Urine Ascorbic Acid 05/19/19 18:02 WBC RBC Hgb Hct MCV MCH MCHC RDW Plt Count Lymph % (Auto) [place] % (Auto) Eos % (Auto) Baso % (Auto) Absolute Neuts (auto) Absolute Lymphs (auto) Absolute Monos (auto) Absolute Eos (auto) Absolute Basos (auto) Seg Neutrophils % Sodium Potassium Chloride Carbon Dioxide Anion Gap BUN Creatinine Est GFR ( Amer) Est GFR (MDRD) Non-Af Glucose Calcium Total Bilirubin Direct Bilirubin Neonat Total Bilirubin Neonat Direct Bilirubin Neonat Indirect Bili AST ALT Alkaline Phosphatase Creatine Kinase CK-MB (CK-2) Troponin I Total Protein Albumin Urine Color YELLOW Urine Appearance CLEAR Urine pH 6.0 Ur Specific [place] 1.018 Urine Protein NEGATIVE Urine Glucose (UA) NEGATIVE Urine Ketones NEGATIVE Urine Blood NEGATIVE Urine Nitrite NEGATIVE Urine Bilirubin NEGATIVE Urine Urobilinogen NEGATIVE Ur Leukocyte Esterase NEGATIVE Urine WBC (Auto) 0 Urine RBC (Auto) 0 Urine Mucus (Auto) RARE Urine Ascorbic Acid NEGATIVE Chest X-Ray 05/19/19 17:00 IMPRESSION: COPD. NO ACUTE RADIOGRAPHIC FINDING IN THE CHEST. - Vital Signs Vital signs: Temp Pulse Resp BP Pulse Ox 97.4 F 84 22 H 149/82 H 97 05/19/19 16:52 05/19/19 16:52 05/19/19 16:52 05/19/19 16:52 05/19/19 16:52 - Laboratory Result Diagrams: 05/19/19 17:21 05/19/19 17:21 Laboratory results interpreted by me: 05/19/19 05/19/19 05/19/19 17:21 17:21 17:21 Hgb 11.7 L Hct 34.7 L MCV 77 L MCH 26.1 L RDW 21.7 H [place] % (Auto) 17.1 H Sodium 124.5 L Chloride 85 L BUN 6 L Glucose 41 L AST 68 H Creatine Kinase 573 H CK-MB (CK-2) 11.50 H Total Protein 8.3 H Discharge - Discharge Clinical Impression: COPD exacerbation Condition: Stable Disposition: HOME, SELF-CARE Instructions: Chronic Obstructive Lung Disease ([facility]) Additional Instructions: Please return to the emergency department if you have any worsening, or concern of your symptoms. Please return to the emergency department if you develop chest pain, difficulty breathing, severe abdominal pain, or ongoing vomiting. Please follow-up with your primary care physician in 2-3 days and any other recommended physicians. If prescribed, take all medications as directed. If you have any questions or concerns do not hesitate to return the emergency department for evaluation. Prescriptions: Albuterol Sulfate [Proair HFA Inhalation Aerosol 8.5 gm MDI] 2 puff IH Q4H PRN #1 mdi PRN Reason: Shortness Of Breath Referrals: LESLY BRYAN MD [Primary Care Provider] - Follow up as needed [facility] [Provider Group] - Follow up in 3-5 days [facility] [Provider Group] - Follow up in 3-5 days
== END 2019-05-19 18:54 | disposition home or self-care (01) ==
LOC: ER 16:48
DX: J44.1 Chronic obstructive pulmonary disease with (acute) exacerbation (principal)
CPT/HCPCS: 94640 ×2; 99285; 96374; 36415; 82553; 82962; 82550; 85025; 80053; 81001; 84484; 71046; J1100; A9270 ×2; J7620

== ENCOUNTER 2019-06-03 13:51 | Emergency (ER) | payer MEDICARE ==
[2019-06-03 14:00] VITALS: BP 149/81
[2019-06-03] MEDS ORDERED: IPRATROPIUM/ALBUTEROL 0.5-2.5 MG/3 ML AMPUL NEB ONE (14:30)
--- NOTE | 2019-06-03 14:33 | ER Document Report ---
ED Medical Screen (RME) - General Chief Complaint: Breathing Difficulty Stated Complaint: DIFFICULTY BREATHING Time Seen by Provider: 06/03/19 14:25 Primary Care Provider: LESLY BRYAN MD [Primary Care Provider] - Follow up as needed Mode of Arrival: Wheelchair Information source: Patient Notes: 63-year-old male ED for complaint shortness of breath dyspnea. He states he cannot get a deep breath. He states he has a nebulizer at home but it does not seem to be helping like it should. He states he is on steroids at this time. I have ordered blood x-rays and nebs. He does have a history of COPD [place] x3 with 2 stents x2 with her blood pressure cholesterol and spinal disorder. He has also had a umbilical hernia repair. He states he states he still smokes 5 to 6 cigarettes a day and lives by himself. I have greeted and performed a rapid initial assessment of this patient. A comprehensive ED assessment and evaluation of the patient, analysis of test results and completion of medical decision making process will be conducted by an additional ED providers. TRAVEL OUTSIDE OF THE [place] 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 Takes ASA now, used to be on hypertensive medications, Hx Hypercholesterolemia, Hx Hypertension Pulmonary Medical History: Reports: Hx Asthma, Hx COPD, Hx Pneumonia Denies: Hx Bronchitis Neurological Medical History: Denies: Hx Cerebrovascular Accident, Hx Seizures Endocrine Medical History: Denies: Hx Diabetes Mellitus Type 1, Hx Diabetes Mellitus Type 2, Hx Hyperthyroidism, Hx Hypothyroidism Renal/ Medical History: Denies: Hx Peritoneal Dialysis GI Medical History: Denies: Hx Cirrhosis, Hx Hepatitis Musculoskeltal Medical History: Reports Hx Arthritis - chronic spine disorder, Denies Hx Gout, Reports Hx Musculoskeletal Deformity, Reports Hx Musculoskeletal Trauma Skin Medical History: Denies Hx Eczema, Denies Hx Psoriasis Psychiatric Medical History: Reports: Hx Borderline Personality Disorder, Hx Depression Traumatic Medical History: Reports: Hx Fractures - Left rib fractures with pneumothorax requiring chest tube on 05/23/2016 Infectious Medical History: Denies: Hx Hepatitis Past Surgical History: Reports: Hx Cardiac Catheterization, Hx Cardiac Surgery - stents, Other - Abdominal hernia repair - Immunizations Immunizations up to date: Yes Hx Diphtheria, Pertussis, Tetanus Vaccination: Yes History of Influenza Vaccine for 06/2017 - 11/2017 Season: Yes Influenza Administration Date for 06/2017 - 11/2017 Season: 06/16/17 Physical Exam - Vital signs Vitals: Temp Pulse Resp BP Pulse Ox 97.9 F 100 24 H 149/81 H 96 06/03/19 13:58 06/03/19 13:58 06/03/19 13:58 06/03/19 13:58 06/03/19 13:58 Course - Vital Signs Vital signs: Temp Pulse Resp BP Pulse Ox 97.9 F 100 24 H 149/81 H 96 06/03/19 13:58 06/03/19 13:58 06/03/19 13:58 06/03/19 13:58 06/03/19 13:58 Doctor's Discharge - Discharge Referrals: LESLY BRYAN MD [Primary Care Provider] - Follow up as needed
[2019-06-03] MEDS: ALBUTEROL SULFATE 0.083% NEB 2.5 MG/3 ML AMPUL NEB SCH ×2 (14:53→16:03)
--- NOTE | 2019-06-03 16:02 | RADIOLOGY REPORT (SQ) ---
EXAM DESCRIPTION: CHEST 2 VIEWS COMPLETED DATE/TIME: 06/03/2019 3:51 pm REASON FOR STUDY: short of breath dispnea wheezing COMPARISON: 05/19/2019 EXAM PARAMETERS: NUMBER OF VIEWS: two views TECHNIQUE: Digital Frontal and Lateral radiographic views of the chest acquired. RADIATION DOSE: NA LIMITATIONS: none FINDINGS: LUNGS AND PLEURA: Hyperexpansion of the lungs. There is no infiltrate, effusion, or mass. MEDIASTINUM AND HILAR STRUCTURES: No masses or contour abnormalities. HEART AND VASCULAR STRUCTURES: Heart normal size. No evidence for failure. BONES: No acute findings. HARDWARE: None in the chest. OTHER: No other significant finding. IMPRESSION: Chronic lung changes with no acute cardiopulmonary findings. Gibbous deformity in the m idthoracic spine secondary to compression changes. TECHNICAL DOCUMENTATION: JOB ID: [id number] [employer]- All Rights Reserved Reading location - IP/workstation name: [email or web address]
== END 2019-06-03 16:20 | disposition left against medical advice (07) ==
LOC: ER 13:51
DX: R06.00 Dyspnea, unspecified (principal); I25.10 Atherosclerotic heart disease of native coronary artery without angina pectoris; I10 Essential (primary) hypertension; E78.00 Pure hypercholesterolemia, unspecified; I25.2 Old myocardial infarction; Z79.82 Long term (current) use of aspirin
CPT/HCPCS: 71046; A9270 ×2; J7620

== ENCOUNTER 2019-06-04 10:06 | Emergency (ER) | payer MEDICARE ==
[2019-06-04 10:29] VITALS: BP 171/91
--- NOTE | 2019-06-04 10:42 | ER Document Report ---
ED General - General Chief Complaint: Breathing Difficulty Stated Complaint: SHORTNESS OF BREATH Time Seen by Provider: 06/04/19 10:41 Primary Care Provider: LESLY BRYAN MD [ACTIVE STAFF] - Follow up as needed TRAVEL OUTSIDE OF THE [place] IN LAST 30 DAYS: No - HPI Patient complains to provider of: SOB Notes: 83-year-old man with lengthy history of COPD and other medical conditions presents with a 2-day history of increased work of breathing sputum production and coughing. Denies fever chills or chest pain. No episodes of syncope. Patient actually came to the emergency department yesterday was giving a breathing treatment while waiting to be seen felt better and left. States he knows he should have stayed. 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 Takes ASA now, used to be on hypertensive medications, Hx Hypercholesterolemia, Hx Hypertension Pulmonary Medical History: Reports: Hx Asthma, Hx COPD, Hx Pneumonia Denies: Hx Bronchitis Neurological Medical History: Denies: Hx Cerebrovascular Accident, Hx Seizures Endocrine Medical History: Denies: Hx Diabetes Mellitus Type 1, Hx Diabetes Mellitus Type 2, Hx Hyperthyroidism, Hx Hypothyroidism Renal/ Medical History: Denies: Hx Peritoneal Dialysis GI Medical History: Denies: Hx Cirrhosis, Hx Hepatitis Musculoskeletal Medical History: Reports Hx Arthritis - chronic spine disorder, Denies Hx Gout, Reports Hx Musculoskeletal Deformity, Reports Hx Musculoskeletal Trauma Skin Medical History: Denies Hx Eczema, Denies Hx Psoriasis Psychiatric Medical History: Reports: Hx Borderline Personality Disorder, Hx Depression Traumatic Medical History: Reports: Hx Fractures - Left rib fractures with pneumothorax requiring chest tube on 05/23/2016 Infectious Medical History: Denies: Hx Hepatitis Past Surgical History: Reports: Hx Cardiac Catheterization, Hx Cardiac Surgery - stents, Other - Abdominal hernia repair - Immunizations Immunizations up to date: Yes Hx Diphtheria, Pertussis, Tetanus Vaccination: Yes Hx Pneumococcal Vaccination: 02/22/13 Review of Systems - Review of Systems Notes: REVIEW OF SYSTEMS: CONSTITUTIONAL: -fevers, -chills EENT: -eye pain, -difficulty swallowing, -nasal congestion CARDIOVASCULAR: -chest pain, -syncope. RESPIRATORY: Positive shortness of breath, positive cough, positive sputum production GASTROINTESTINAL: -abdominal pain, -nausea, -vomiting, -diarrhea GENITOURINARY: -dysuria, -hematuria MUSCULOSKELETAL: -back pain, -neck pain SKIN: -rash or skin lesions. HEMATOLOGIC: -easy bruising or bleeding. LYMPHATIC: -swollen, enlarged glands. NEUROLOGICAL: -altered mental status or loss of consciousness, -headache, - neurologic symptoms PSYCHIATRIC: -anxiety, -depression. ALL OTHER SYSTEMS REVIEWED AND NEGATIVE. Physical Exam - Vital signs Vitals: Temp Pulse Resp BP Pulse Ox 97.5 F 75 20 179/87 H 96 06/04/19 10:10 06/04/19 10:10 06/04/19 10:10 06/04/19 10:10 06/04/19 10:10 - Notes Notes: PHYSICAL EXAMINATION: GENERAL: Well-appearing, well-nourished and in severe acute distress. HEAD: Atraumatic, normocephalic. EYES: Pupils equal round and reactive to light, extraocular movements intact, sclera anicteric, conjunctiva are normal. ENT: nares patent, oropharynx clear without exudates. Moist mucous membranes. NECK: Normal range of motion, supple without lymphadenopathy LUNGS: Mild respiratory distress, biphasic wheezing HEART: Regular rate and rhythm without murmurs ABDOMEN: Soft, nontender, normoactive bowel sounds. No guarding, no rebound. No masses appreciated. EXTREMITIES: Normal range of motion, no pitting or edema. No cyanosis. NEUROLOGICAL: Cranial nerves grossly intact. Normal speech, normal gait. Normal sensory and motor exams. PSYCH: Normal mood, normal affect. SKIN: Warm, Dry, normal turgor, no rashes or lesions noted. Course - Re-evaluation Re-evalutation: 06/04/19 10:49 Ill-appearing 63-year-old male presents in respiratory distress. Tachypnea. Pa tient will give emergent 3 breathing treatments, oral steroids. Will check a sugar for glucose. Will add chest x-ray as well. 06/04/19 11:59 Patient's chest x-ray unchanged, patient given 3 breathing treatments and oral steroids feeling markedly improved. Will discharge home with prescription for more oral steroids, albuterol and doxycycline. Patient will follow-up with PCP. Given strict return precautions anything should change or worsen please return - Vital Signs Vital signs: Temp Pulse Resp BP Pulse Ox 98.4 F 73 26 H 171/91 H 95 06/04/19 10:28 06/04/19 10:28 06/04/19 10:28 06/04/19 10:28 06/04/19 10:28 Critical Care Note - Critical Care Note Total time excluding time spent on procedures (mins): 36 Discharge - Discharge Clinical Impression: COPD exacerbation Condition: Stable Disposition: HOME, SELF-CARE Instructions: Chronic Obstructive Lung Disease ([facility]) Prescriptions: Albuterol Sulfate [Albuterol Sulfate Hfa] 18 gm IH Q4H #1 hfa.aer.ad Doxycycline Hyclate 100 mg PO BID #14 tablet. Methylprednisolone [Medrol Dosepack (4 mg/Tab) 21 Tab/Dosepak] 21 tab PO DAILY #21 dspk Referrals: LESLY BRYAN MD [ACTIVE STAFF] - Follow up as needed
[2019-06-04] MEDS ORDERED: IPRATROPIUM/ALBUTEROL 0.5-2.5 MG/3 ML AMPUL NEB ONE ×3 (10:46→10:47)
[2019-06-04] MEDS ORDERED: PREDNISONE 20 MG TABLET PO ONE (10:47)
--- NOTE | 2019-06-04 12:10 | RADIOLOGY REPORT (SQ) ---
EXAM DESCRIPTION: CHEST SINGLE VIEW COMPLETED DATE/TIME: 06/04/2019 11:58 am REASON FOR STUDY: sob COMPARISON: None. EXAM PARAMETERS: NUMBER OF VIEWS: One view. TECHNIQUE: Single frontal radiographic view of the chest acquired. RADIATION DOSE: NA LIMITATIONS: None. FINDINGS: LUNGS AND PLEURA: Chronic interstitial and emphysematous change without focal consolidatio n, pleural effusion or pneumothorax. MEDIASTINUM AND HILAR STRUCTURES: No masses. Contour normal. HEART AND VASCULAR STRUCTURES: Normal heart size. BONES: No acute findings. Chronic bilateral rib fractures. Thoracic compression deformities, partia lly evaluated. HARDWARE: None in the chest. OTHER: No other significant finding. IMPRESSION: Emphysematous change without evidence of acute cardiopulmonary process. TECHNICAL DOCUMENTATION: JOB ID: [id number] [employer]- All Rights Reserved Reading location - IP/workstation name: [email or web address]
== END 2019-06-04 12:13 | disposition home or self-care (01) ==
LOC: ER 10:06
DX: J44.1 Chronic obstructive pulmonary disease with (acute) exacerbation (principal); R06.02 Shortness of breath; R05 Cough; F17.200 Nicotine dependence, unspecified, uncomplicated; I25.10 Atherosclerotic heart disease of native coronary artery without angina pectoris; I10 Essential (primary) hypertension; Z87.01 Personal history of pneumonia (recurrent); Z95.5 Presence of coronary angioplasty implant and graft
CPT/HCPCS: 82962; 71045; A9270 ×2; J7512; J7620

== ENCOUNTER 2019-06-12 23:18 | Inpatient (IN) | payer MEDICARE ==
[2019-06-13] MEDS ORDERED: NORMAL SALINE 1000 ML 1,000 ML IV ONE ×2 (02:47→04:57)
--- NOTE | 2019-06-13 02:49 | ER Document Report ---
ED General - General Chief Complaint: Shortness Of Breath Stated Complaint: CHEST PAIN,TROUBLE BREATHING Time Seen by Provider: 06/13/19 02:34 TRAVEL OUTSIDE OF THE [place] IN LAST 30 DAYS: No - HPI Associated symptoms: Chest pain, Productive cough. denies: Fever Notes: This is 63-year-old gentleman who presents with a complaint of cough, congestion, chest pain, dyspnea for the past week at least. Patient states that he has pain all the time but it has increased over the past week. He states that he has had some trouble sleeping because of his cough and dyspnea. Describes midsternal chest pain. He denies any fever or chills. He denies any vomiting or diarrhea. He describes his symptoms as moderate. Symptoms worse with coughing and palpation. 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 Takes ASA now, used to be on hypertensive medications, Hx Hypercholesterolemia, Hx Hypertension Pulmonary Medical History: Reports: Hx Asthma, Hx COPD, Hx Pneumonia Denies: Hx Bronchitis Neurological Medical History: Denies: Hx Cerebrovascular Accident, Hx Seizures Endocrine Medical History: Denies: Hx Diabetes Mellitus Type 1, Hx Diabetes Mellitus Type 2, Hx Hyperthyroidism, Hx Hypothyroidism Renal/ Medical History: Denies: Hx Peritoneal Dialysis GI Medical History: Denies: Hx Cirrhosis, Hx Hepatitis Musculoskeletal Medical History: Reports Hx Arthritis - chronic spine disorder, Denies Hx Gout, Reports Hx Musculoskeletal Deformity, Reports Hx Musculoskeletal Trauma Skin Medical History: Denies Hx Eczema, Denies Hx Psoriasis Psychiatric Medical History: Reports: Hx Borderline Personality Disorder, Hx Depression Traumatic Medical History: Reports: Hx Fractures - Left rib fractures with pneumothorax requiring chest tube on 05/23/2016 Infectious Medical History: Denies: Hx Hepatitis Past Surgical History: Reports: Hx Cardiac Catheterization, Hx Cardiac Surgery - stents, Other - Abdominal hernia repair - Immunizations Immunizations up to date: Yes Hx Diphtheria, Pertussis, Tetanus Vaccination: Yes Hx Pneumococcal Vaccination: 02/22/13 Review of Systems - Review of Systems Cardiovascular: Chest pain. denies: Palpitations, Heart racing Respiratory: Cough Gastrointestinal: denies: Abdominal pain, Diarrhea, Nausea -: Yes All other systems reviewed and negative Physical Exam - Vital signs Vitals: Temp Pulse Resp BP Pulse Ox 97.4 F 78 20 142/72 H 97 06/12/19 23:27 06/12/19 23:27 06/12/19 23:27 06/12/19 23:27 06/12/19 23:27 - General General appearance: Appears well, Alert Notes: pt appears somnolent. States he is tired. - Respiratory Respiratory status: No respiratory distress Chest status: Tender - due.No chest wall tenderness. Is reproducible pain with movement. Breath sounds: Nonproductive cough. No: Rales, Wheezing Chest palpation: Normal - Cardiovascular Rhythm: Regular Heart sounds: Normal auscultation Murmur: No - Back Back: Normal, Nontender - Neurological Neuro grossly intact: Yes Cognition: Normal Orientation: AAOx4 [place] Coma Scale Eye Opening: Spontaneous [place] Coma Scale Verbal: Oriented [place] Coma Scale Motor: Obeys Commands Fed[place] Coma Scale Total: 15 Speech: Normal Motor strength normal: LUE, RUE, LLE, RLE Sensory: Normal - Psychological Associated symptoms: Normal affect, Normal mood - Skin Skin Temperature: Warm Skin Moisture: Dry Skin Color: Normal Course - Re-evaluation Re-evalutation: 06/13/19 02:51 Differential diagnosis includes bronchitis versus pneumonia versus chest wall pain. There is no clinical suspicion for acute coronary syndrome pulmonary embolus. 06/13/19 05:02 Patient reevaluated. He states he needs a breathing treatment. Has some slight wheezes. Will order a DuoNeb. Labs reviewed. Patient has severe hyponatremia. Will admit. We will give saline slowly. Patient's care discussed with Dr. Brown. Will admit to [facility]. - Vital Signs Vital signs: Temp Pulse Resp BP Pulse Ox 97.4 F 78 20 142/72 H 97 06/12/19 23:27 06/12/19 23:27 06/12/19 23:27 06/12/19 23:27 06/12/19 23:27 - Laboratory Result Diagrams: 06/13/19 04:03 06/13/19 04:03 Laboratory results interpreted by me: 06/13/19 06/13/19 04:03 04:03 Hgb 11.8 L Hct 35.3 L MCV 78 L MCH 26.2 L RDW 20.3 H Dent % (Auto) 18.4 H Sodium 118.3 L* Chloride 80 L BUN 5 L - Diagnostic Test Radiology reviewed: Reports reviewed - EKG Interpretation by Me EKG shows normal: Sinus rhythm Rhythm: NSR [place]/QRS: No: Right axis deviation Voltage: No: Increased voltage Heart block present: No: 1st Degree When compared to previous EKG there are: No significant change Critical Care Note - Critical Care Note Total time excluding time spent on procedures (mins): 30 Comments: Critical care time for managing hyponatremia. Discharge - Discharge Clinical Impression: Hyponatremia COPD (chronic obstructive pulmonary disease) Qualifiers: COPD type: unspecified COPD Qualified Code(s): J44.9 - Chronic obstructive pulmonary disease, unspecified Condition: Stable Disposition: ADMITTED INPATIENT Admitting Provider: Kevin (Hospitalist) Unit Admitted: [facility]
--- NOTE | 2019-06-13 03:13 | RADIOLOGY REPORT (SQ) ---
Chest single view on 06/13/2019 at 2:50 AM CLINICAL INDICATION: Chest pain COMPARISON: 06/04/2019 FINDINGS: There is evidence of calcified granulomatous disease in the chest. Mild chronic interstitial changes are noted. The lungs are otherwise clear. Cardiac, hilar and mediastinal contours are within normal limits. Pulmonary vascularity is within normal limits. IMPRESSION: No acute disease.
[2019-06-13 04:20] LABS: ABSOLUTE BASOPHILS # (AUTO) 0.1 10^3/uL (0.0-0.2); ABSOLUTE LYMPHOCYTES (AUTO) 1.5 10^3/uL (0.5-4.7); ABSOLUTE NEUT (AUTO) 2.7 10^3/uL (1.7-8.2); BASOPHILS % (AUTO) 1.9 % (0-2); EOSINOPHILS % (AUTO) 0.2 % (0-6); HEMATOCRIT 35.3 % (37.9-51.0); HEMOGLOBIN 11.8 g/dL (13.5-17.0); LYMPHOCYTES % (AUTO) 28.2 % (13-45); MEAN CORPUSCULAR HEMOGLOBIN 26.2 pg (27.0-33.4); MEAN CORPUSCULAR HGB CONC 33.5 g/dL (32.0-36.0); MEAN CORPUSCULAR VOLUME 78 fl (80-97); MONOCYTES % (AUTO) 18.4 % (3-13); PLATELET COUNT 329 10^3/uL (150-450); RED CELL DISTRIBUTION WIDTH 20.3 % (11.5-14.0); SEGMENTED NEUTROPHILS % (AUTO) 51.3 % (42-78); TOTAL CELLS COUNTED % (AUTO) 100 %; WHITE BLOOD COUNT 5.2 10^3/uL (4.0-10.5)
[2019-06-13 04:36] LABS: BLOOD UREA NITROGEN 5 mg/dL (7-20); CALCIUM 8.9 mg/dL (8.4-10.2); CARBON DIOXIDE 28 mmol/L (22-30); CHLORIDE 80 mmol/L (98-107); GLUCOSE 90 mg/dL (75-110); POTASSIUM 4.4 mmol/L (3.6-5.0)
[2019-06-13 04:37] LABS: ALCOHOL < 10 mg/dL (NONE DETECTED); ANION GAP 10 (5-19)
[2019-06-13] MEDS ORDERED: METHYLPREDNISOLONE INJ 125 MG/2 ML SDV IV ONE (04:59)
[2019-06-13] MEDS ORDERED: IPRATROPIUM/ALBUTEROL 0.5-2.5 MG/3 ML AMPUL NEB ONE (04:59)
[2019-06-13] MEDS ORDERED: ACETAMINOPHEN 325 MG TABLET PO PRN (05:07)
[2019-06-13] MEDS ORDERED: IPRATROPIUM/ALBUTEROL 0.5-2.5 MG/3 ML AMPUL NEB PRN (05:07)
[2019-06-13] MEDS ORDERED: FUROSEMIDE INJ/PF 40 MG/4 ML SDV IV ONE (05:07)
[2019-06-13] MEDS ORDERED: GUAIFENESIN SYRP 200 MG/10 ML UDC PO PRN (05:07)
[2019-06-13] MEDS ORDERED: LORAZEPAM INJ 2 MG/1 ML VIAL IV PRN ×2 (05:07→07:14)
[2019-06-13] MEDS ORDERED: HEPARIN SOD (PORCINE) 5,000 UNIT/ML 1 ML VIAL SUBCUT SCH (06:00)
[2019-06-13] MEDS ORDERED: DIAZEPAM 5 MG TABLET PO SCH ×2 (06:00→14:00)
[2019-06-13] MEDS ORDERED: THIAMINE HCL 100 MG TABLET PO ONE (06:00)
[2019-06-13] MEDS ORDERED: LEVOFLOXACIN 750 MG/D5W RTU 750 MG/150 ML RTUPB IV ONE (06:00)
[2019-06-13] MEDS ORDERED: NORMAL SALINE 1000 ML 500 ML IV ONE (07:19)
--- NOTE | 2019-06-13 07:35 | PDOC H&P ---
History of Present Illness Admission Date/PCP: 06/13/19 05:17 Patient complains of: Shortness of breath History of Present Illness: LEIF NUÑEZ is a 63 year old male with a past medical history of severe alcoholism, recurrent hyponatremia, COPD, ataxia, tobacco dependence and noncompliance with recurrent AMA discharges. He presents with approximately 1 week of worsening shortness of breath from baseline associated with nonproductive cough prompting evaluation emergency room where he is found to have bronchitis and hyponatremia. He receives empiric antibiotics and IV fluid challenge and referred to the hospitalist for admission. Patient denies nausea vomiting or recent antibiotic use. He admits to noncompliance with medications and lifestyle. 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 Takes ASA now, used to be on hypertensive medications, Hyperlipidema, Hypertension Pulmonary Medical History: Reports: Asthma, Chronic Obstructive Pulmonary Disease (COPD), Pneumonia Denies: Bronchitis Neurological Medical History: Denies: Seizures Endocrine Medical History: Denies: Diabetes Mellitus Type 1, Diabetes Mellitus Type 2, Hyperthyroidism, Hypothyroidism GI Medical History: Denies: Cirrhosis, Hepatitis Musculoskeltal Medical History: Reports: Arthritis - chronic spine disorder Denies: Gout Skin Medical History: Denies: Eczema, Psoriasis Psychiatric Medical History: Reports: Alcohol Dependency, Depression, Tobacco Dependency Hematology: Denies: Anemia, Bleeding Tendencies Past Surgical History Past Surgical History: Reports: Cardiac Catheterization, Other - Abdominal hernia repair Social History Smoking Status: Current Every Day Smoker Frequency of Alcohol Use: Heavy Hx Recreational Drug Use: No Drugs: None Hx Prescription Drug Abuse: No - Advance Directive Resuscitation Status: Full Code Family History Family History: Arthritis, CAD, COPD Parental Family History Reviewed: Yes Children Family History Reviewed: Yes Sibling(s) Family History Reviewed.: Yes Medication/Allergy Home Medications: Budesonide/Formoterol Fumarate [Symbicort HFA 160-4.5 mcg Inhaler 6 gm] 2 puff IH BID 03/24/19 Clopidogrel Bisulfate [Plavix 75 mg Tablet] 75 mg PO DAILY 03/24/19 Hydroxyzine HCl [Atarax 25 mg Tablet] 25 mg PO BIDP PRN 03/24/19 Tiotropium [place] [Spiriva Respimat] 2 puff IH DAILY 03/24/19 Trazodone HCl [Desyrel 50 mg Tablet] 25 mg PO QHS 03/24/19 Albuterol Sulfate [Proair HFA Inhalation Aerosol 8.5 gm MDI] 2 puff IH Q4H PRN #1 mdi 05/19/19 Albuterol Sulfate [Albuterol Sulfate Hfa] 18 gm IH Q4H #1 hfa.aer.ad 06/04/19 Doxycycline Hyclate 100 mg PO BID #14 tablet. 06/04/19 Methylprednisolone [Medrol Dosepack (4 mg/Tab) 21 Tab/Dosepak] 21 tab PO DAILY #21 dspk 06/04/19 Allergies/Adverse Reactions: No Known Allergies Allergy (Verified 05/19/19 16:48) Review of Systems ROS unobtainable: Due to mental status Constitutional: PRESENT: as per HPI, weakness, weight loss Eyes: ABSENT: visual disturbances Ears: ABSENT: hearing changes Cardiovascular: ABSENT: chest pain, dyspnea on exertion, edema, orthropnea, palpitations Respiratory: PRESENT: as per HPI, cough, dyspnea. ABSENT: sputum Gastrointestinal: ABSENT: abdominal pain, constipation, diarrhea, hematemesis, hematochezia, nausea, vomiting Genitourinary: ABSENT: dysuria, hematuria Musculoskeletal: ABSENT: joint swelling Integumentary: ABSENT: rash, wounds Neurological: PRESENT: as per HPI, weakness, other Psychiatric: ABSENT: anxiety, depression, homidical ideation, suicidal ideation Endocrine: ABSENT: cold intolerance, heat intolerance, polydipsia, polyuria Hematologic/Lymphatic: ABSENT: easy bleeding, easy bruising Physical Exam Vital Signs: Temp Pulse Resp BP Pulse Ox 97.4 F 78 20 142/72 H 97 06/12/19 23:27 06/12/19 23:27 06/12/19 23:27 06/12/19 23:27 06/12/19 23:27 Intake & Output 06/11/19 06/12/19 06/13/19 11:59 11:59 11:59 Intake Total 200 Balance 200 Weight 89.1 kg General appearance: PRESENT: cooperative, disheveled, mild distress, thin, well- developed Head exam: PRESENT: atraumatic, normocephalic Eye exam: PRESENT: conjunctiva pink, EOMI, PERRLA. ABSENT: scleral icterus Ear exam: PRESENT: normal external ear exam Mouth exam: PRESENT: moist, tongue midline Neck exam: ABSENT: carotid bruit, JVD, lymphadenopathy, thyromegaly Respiratory exam: PRESENT: accessory muscle use, crackles, prolonged expiratory phas, symmetrical. ABSENT: rhonchi, stridor Cardiovascular exam: PRESENT: RRR. ABSENT: diastolic murmur, rubs, systolic murmur Pulses: PRESENT: normal dorsalis pedis pul Vascular exam: PRESENT: normal capillary refill GI/Abdominal exam: PRESENT: normal bowel sounds, soft. ABSENT: distended, guarding, mass, organolmegaly, rebound, tenderness Extremities exam: PRESENT: full ROM. ABSENT: calf tenderness, clubbing, pedal edema Neurological exam: PRESENT: alert, awake, oriented to person, oriented to place, oriented to situation, CN II-XII grossly intact. ABSENT: motor sensory deficit Psychiatric exam: PRESENT: appropriate affect, normal mood. ABSENT: homicidal ideation, suicidal ideation Skin exam: PRESENT: dry, intact, warm. ABSENT: cyanosis, rash Results Laboratory Results: 06/13/19 04:03 06/13/19 04:03 06/13/19 06/13/19 04:03 04:03 WBC 5.2 RBC 4.50 Hgb 11.8 L Hct 35.3 L MCV 78 L MCH 26.2 L MCHC 33.5 RDW 20.3 H Plt Count 329 Seg Neutrophils % 51.3 Sodium 118.3 L* Potassium 4.4 Chloride 80 L Carbon Dioxide 28 Anion Gap 10 BUN 5 L Creatinine 0.56 Est GFR ( Amer) > 60 Glucose 90 Calcium 8.9 Magnesium 1.9 06/13/19 04:03 Troponin I < 0.012 Impressions: Chest X-Ray 06/13/19 02:41 IMPRESSION: No acute disease. Assessment and Plan - Diagnosis (1) Acute bronchiolitis Is this a current diagnosis for this admission?: Yes Plan: Empiric antibiotics, albuterol and Atrovent, steroids, incentive spirometry and flutter valve. (2) COPD (chronic obstructive pulmonary disease) Qualifiers: COPD type: unspecified COPD Qualified Code(s): J44.9 - Chronic obstructive pulmonary disease, unspecified Is this a current diagnosis for this admission?: Yes Plan: Secondary to #1, supplemental oxygen (3) Hyponatremia Is this a current diagnosis for this admission?: Yes Plan: Secondary to severe alcoholism with volume overload. Fluid restriction, follow- up chemistry (4) Alcohol abuse Is this a current diagnosis for this admission?: Yes Plan: Valium and Ativan as needed, thiamine, folic acid ordered. - Time Time Spent with patient: 25-34 minutes - Inpatient Certification Medical Necessity: Need Close Monitoring Due to Risk of Patient Decompensation
[2019-06-13] MEDS: IPRATROPIUM/ALBUTEROL 0.5-2.5 MG/3 ML AMPUL NEB SCH (08:39)
--- NOTE | 2019-06-13 08:57 | EKG REPORT ---
SEVERITY:- BORDERLINE ECG - INCOMPLETE ANALYSIS DUE TO MISSING DATA IN PRECORDIAL LEAD(S) SINUS RHYTHM BORDERLINE R WAVE PROGRESSION, ANTERIOR LEADS : Confirmed by: Renee Gill 13-Jun-2019 08:56:29
--- NOTE | 2019-06-13 08:57 | EKG REPORT ---
SEVERITY:- BORDERLINE ECG - SINUS RHYTHM BORDERLINE R WAVE PROGRESSION, ANTERIOR LEADS : Confirmed by: Renee Gill 13-Jun-2019 08:56:15
[2019-06-13 10:06] LABS: ANION GAP 12 (5-19); BLOOD UREA NITROGEN 5 mg/dL (7-20); CALCIUM 8.6 mg/dL (8.4-10.2); CARBON DIOXIDE 25 mmol/L (22-30); CHLORIDE 82 mmol/L (98-107); GLUCOSE 150 mg/dL (75-110); POTASSIUM 4.2 mmol/L (3.6-5.0)
[2019-06-13 12:46] VITALS: BP 130/96
[2019-06-13] MEDS ORDERED: METHYLPREDNISOLONE INJ 125 MG/2 ML SDV IV SCH (14:00)
[2019-06-13] MEDS ORDERED: FOLIC ACID/VITAMIN B COMP W-C CAPSULE PO SCH (16:00)
--- NOTE | 2019-06-13 16:43 | Left Against Medical Advice ---
Against Medical Advice Admission Date/Time: 06/13/19 05:17 Primary Care Provider: Date of Patient Emigration: 06/13/19 - Summary: Summary: Please see Admission and Progress Notes as well. LEIF NUÑEZ is a 63 M, who LEFT AGAINST MEDICAL ADVICE. The Patient was admitted on 06/13/19 05:17. LEIF NUÑEZ is a 63 year old male with a past medical history of severe alcoholism, recurrent hyponatremia, COPD, ataxia, tobacco dependence and noncompliance with recurrent AMA discharges. He presents with approximately 1 week of worsening shortness of breath from baseline associated with nonproductive cough prompting evaluation emergency room where he is found to have bronchitis and hyponatremia. He receives empiric antibiotics and IV fluid challenge and referred to the hospitalist for admission. Patient denies nausea vomiting or recent antibiotic use. He admits to noncompliance with medications and lifestyle. Was contacted by primary nurse in ED that patient wanted to leave the hospital AMA. Advised patient to remain in the hospital so his hyponatremia being treated. He was counseled about hyponatremia and the risks of not treating it, but unfortunately he decided to leave AMA. At the time of discharge patient is very pleasant, alert oriented x4, is understands risks of untreated hyponatremia.
[2019-06-13] MEDS ORDERED: TRAZODONE HCL 50 MG TABLET PO SCH (22:00)
[2019-06-14] MEDS: IPRATROPIUM/ALBUTEROL 0.5-2.5 MG/3 ML AMPUL NEB SCH (09:24)
[2019-06-14] MEDS ORDERED: CLOPIDOGREL BISULFATE 75 MG TABLET PO SCH (10:00)
[2019-06-14] MEDS ORDERED: THIAMINE HCL 100 MG TABLET PO SCH (10:00)
[2019-06-14] MEDS ORDERED: LEVOFLOXACIN 750 MG/D5W RTU 750 MG/150 ML RTUPB IV SCH (10:00)
== END 2019-06-13 12:48 | disposition left against medical advice (07) | DRG 202 ==
LOC: ER 23:18 → EH 06-13 05:17
PROVIDERS: ADMIT Internal Medicine; ATTEND Internal Medicine
DX: J21.9 Acute bronchiolitis, unspecified (principal); E87.1 Hypo-osmolality and hyponatremia; F60.3 Borderline personality disorder; F17.210 Nicotine dependence, cigarettes, uncomplicated; F10.10 Alcohol abuse, uncomplicated; Y90.0 Blood alcohol level of less than 20 mg/100 ml; Z95.5 Presence of coronary angioplasty implant and graft; Z79.01 Long term (current) use of anticoagulants; Z79.51 Long term (current) use of inhaled steroids; Z79.899 Other long term (current) drug therapy; Z91.19 Patient's noncompliance with other medical treatment and regimen
CPT/HCPCS: 36415; 71045; 80048; 80307; 83735; 84484; 85025; 93005; 93010; 94640; 96361; 96374; 99291; J1644; J1940; J1956; J2930; J3490; J7030; J7620

== ENCOUNTER 2019-07-23 09:17 | Emergency (ER) | payer MEDICARE, MEDICAID ==
[2019-07-23 09:35] VITALS: BP 118/81
[2019-07-23 10:01] LABS: ALBUMIN 4.4 g/dL (3.5-5.0); ALKALINE PHOSPHATASE 53 U/L (38-126); ANION GAP 13 (5-19); ASPARTATE AMINO TRANSFERASE 66 U/L (17-59); BILIRUBIN,DIRECT 0.2 mg/dL (0.0-0.4); BILIRUBIN,TOTAL 0.5 mg/dL (0.2-1.3); BLOOD UREA NITROGEN 11 mg/dL (7-20); CALCIUM 8.8 mg/dL (8.4-10.2); CARBON DIOXIDE 26 mmol/L (22-30); CHLORIDE 82 mmol/L (98-107); GLUCOSE 88 mg/dL (75-110); POTASSIUM 4.6 mmol/L (3.6-5.0); TOTAL PROTEIN 7.8 g/dL (6.3-8.2)
[2019-07-23] MEDS ORDERED: IPRATROPIUM/ALBUTEROL 0.5-2.5 MG/3 ML AMPUL NEB ONE (10:23)
[2019-07-23] MEDS ORDERED: NORMAL SALINE 1000 ML 500 ML IV ONE (10:23)
[2019-07-23 10:53] LABS: CREATINE KINASE 894 U/L (55-170)
--- NOTE | 2019-07-23 10:58 | RADIOLOGY REPORT (SQ) ---
EXAM DESCRIPTION: CHEST SINGLE VIEW COMPLETED DATE/TIME: 07/23/2019 10:21 am REASON FOR STUDY: dyspnea COMPARISON: 06/13/2019 NUMBER OF VIEWS: One view. TECHNIQUE: Single frontal radiographic view of the chest acquired. LIMITATIONS: None. FINDINGS: LUNGS AND PLEURA: No opacities, masses or pneumothorax. No pleural effusion. Attenuated bl ood vessels and flattened patrick-diaphragms. MEDIASTINUM AND HILAR STRUCTURES: No masses. Contour normal. HEART AND VASCULAR STRUCTURES: Stable heart size. Normal vasculature. BONES: No acute findings. HARDWARE: None in the chest. OTHER: No other significant finding. IMPRESSION: COPD. NO ACUTE RADIOGRAPHIC FINDING IN THE CHEST. TECHNICAL DOCUMENTATION: JOB ID: [id number] [employer]- All Rights Reserved Reading location - IP/workstation name: [email or web address]
[2019-07-23] MEDS ORDERED: ALBUTEROL SULFATE 0.083% NEB 2.5 MG/3 ML AMPUL NEB ONE (11:07)
--- NOTE | 2019-07-23 13:07 | ER Document Report ---
Entered by URSULA TRAN SCRIBE 07/23/19 1020 Acting as scribe for:JACOBY BLAKE MD ED General - General Chief Complaint: Shortness Of Breath Stated Complaint: SHORTNESS OF BREATH Time Seen by Provider: 07/23/19 10:14 Primary Care Provider: KRISHNA NEWMAN FNP-C [Primary Care Provider] - Follow up tomorrow Notes: Patient is a 63 year old male with history of COPD and CAD arriving via EMS presenting to the emergency department complaining of shortness of breath with associated cough. EMS gave the patient 1 Duoneb, and 125mg of Solumedrol en route to the ED. Patient states that on 07/21/19 he was prescribed oxygen by his primary care physician, he states that it has not yet arrived so he has none until it comes. He states he is not out of his nebulizer treatment. Patient states that he is having yellow colored phlegm. TRAVEL OUTSIDE OF THE [place] IN LAST 30 DAYS: No - Related Data Allergies/Adverse Reactions: No Known Allergies Allergy (Verified 05/19/19 16:48) Home Medications: Home O2 Past Medical History - General Information source: Patient - Social History Smoking Status: Current Some Day Smoker Cigarette use (# per day): Yes - 3/4 pack a day Chew tobacco use (# tins/day): No Frequency of alcohol use: None Drug Abuse: None Family History: Arthritis, CAD, COPD Patient has suicidal ideation: No Patient has homicidal ideation: No - Past Medical History Cardiac Medical History: Reports: Hx Coronary Artery Disease - cardiac stents x2, 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 Takes ASA now, used to be on hypertensive medications, Hx Hypercholesterolemia, Hx Hypertension Pulmonary Medical History: Reports: Hx Asthma, Hx COPD, Hx Pneumonia Musculoskeletal Medical History: Reports Hx Arthritis - chronic spine disorder, Reports Hx Musculoskeletal Deformity, Reports Hx Musculoskeletal Trauma Psychiatric Medical History: Reports: Hx Borderline Personality Disorder, Hx Depression Traumatic Medical History: Reports: Hx Fractures - Left rib fractures with pneumothorax requiring chest tube on 05/23/2016 Past Surgical History: Reports: Hx Cardiac Catheterization, Hx Cardiac Surgery - stents, Other - Abdominal hernia repair - Immunizations Immunizations up to date: Yes Hx Diphtheria, Pertussis, Tetanus Vaccination: Yes Hx Pneumococcal Vaccination: 02/22/13 Review of Systems - Review of Systems Constitutional: No symptoms reported EENT: No symptoms reported Cardiovascular: No symptoms reported Respiratory: See HPI, Cough, Short of breath, Sputum - yellow colored Gastrointestinal: No symptoms reported Genitourinary: No symptoms reported Male Genitourinary: No symptoms reported Musculoskeletal: No symptoms reported Skin: No symptoms reported Hematologic/Lymphatic: No symptoms reported Neurological/Psychological: No symptoms reported -: Yes All other systems reviewed and negative Physical Exam - Vital signs Vitals: Resp 24 H 07/23/19 09:21 - Notes Notes: Physical Exam: General: Alert, cachectic HEENT: Normocephalic. Atraumatic. PERRL. Extraocular movements intact. Oropharynx clear. Neck: Supple. Non-tender. Respiratory: No diminished lung sounds. Tachypneic. Pursed lip breathing. Wheezing bilaterally. Oxygen saturation 100% via 2L nasal cannula. Cardiovascular: Regular rate and rhythm. Abdominal: Normal Inspection. Non-tender. No distension. Normal Bowel Sounds. Back: No gross abnormalities. Extremities: Moves all four extremities. Upper extremities: Normal inspection. Normal ROM. Lower extremities: Normal inspection. No edema. Normal ROM. Neurological: Normal cognition. AAOx4. Normal speech. Psychological: Normal affect. Normal Mood. Skin: Warm. Dry. Normal color. Course - Re-evaluation Re-evalutation: 07/23/19 11:42 After nebulizer treatments, patient's room air pulse ox runs from 96 to 99%. He is chronically hyponatremic, and is supposed to have a prescription to take, most likely salt tablets that he did not bother to fill. The community commercial front load driver who is present is going over to his pharmacy to see if she can pickle processor the medication. She is also confirmed that he was supposed to get oxygen delivered to his home and will try to facilitate that. Patient has a chronic hyponatremic, chronically elevated CK levels, and COPD. - Vital Signs Vital signs: Temp Pulse Resp BP Pulse Ox 98.1 F 19 118/81 99 07/23/19 09:34 07/23/19 09:23 07/23/19 09:23 07/23/19 09:23 - Laboratory Result Diagrams: 07/23/19 13:25 07/23/19 08:55 Laboratory results interpreted by me: 07/23/19 07/23/19 07/23/19 08:55 08:55 13:25 WBC 3.7 L Hgb 11.3 L Hct 33.6 L MCV 76 L MCH 25.4 L RDW 18.1 H Lymph % (Auto) 5.5 L Absolute Lymphs (auto) 0.2 L Seg Neutrophils % 90.1 H Sodium 120.6 L* Chloride 82 L AST 66 H Creatine Kinase 894 H - Diagnostic Test Radiology reviewed: Image reviewed, Reports reviewed - Chest x-ray shows COPD without acute cardiopulmonary findings. - EKG Interpretation by Me EKG shows normal: Sinus rhythm, [place], Intervals, QRS Complexes, ST-T Waves Rate: Normal - 78 Rhythm: NSR When compared to previous EKG there are: No significant change Critical Care Note - Critical Care Note Total time excluding time spent on procedures (mins): 35 Discharge - Discharge Clinical Impression: COPD exacerbation, Hyponatremia Rhabdomyolysis Qualifiers: Rhabdomyolysis type: non-traumatic Qualified Code(s): M62.82 - Rhabdomyolysis Condition: Stable Disposition: HOME, SELF-CARE Additional Instructions: Continue your regular medications. Take the prednisone as prescribed-start the medication tomorrow. Usual home oxygen when it arrives. Increase salt in your diet. Follow-up with your primary care provider tomorrow for recheck and discuss managing your low sodium levels. RETURN TO THE EMERGENCY ROOM IF ANY NEW OR WORSENING SYMPTOMS. Prescriptions: Prednisone [Deltasone 10 mg Tablet] 10 mg PO ASDIR PRN #21 tablet PRN Reason: Referrals: KRISHNA NEWMAN FNP-C [Primary Care Provider] - Follow up tomorrow Scribe Attestation: 07/23/19 13:08 I personally performed the services described in the documentation, reviewed and edited the documentation which was dictated to the scribe in my presence, and it accurately records my words and actions. I personally performed the services described in the documentation, reviewed and edited the documentation which was dictated to the scribe in my presence, and it accurately records my words and actions.
[2019-07-23 13:37] LABS: ABSOLUTE LYMPHOCYTES (AUTO) 0.2 10^3/uL (0.5-4.7); ABSOLUTE MONOCYTES (AUTO) 0.1 10^3/uL (0.1-1.4); ABSOLUTE NEUT (AUTO) 3.3 10^3/uL (1.7-8.2); BASOPHILS % (AUTO) 0.4 % (0-2); HEMATOCRIT 33.6 % (37.9-51.0); HEMOGLOBIN 11.3 g/dL (13.5-17.0); LYMPHOCYTES % (AUTO) 5.5 % (13-45); MEAN CORPUSCULAR HEMOGLOBIN 25.4 pg (27.0-33.4); MEAN CORPUSCULAR HGB CONC 33.5 g/dL (32.0-36.0); MEAN CORPUSCULAR VOLUME 76 fl (80-97); RED BLOOD COUNT 4.43 10^6/uL (4.35-5.55); RED CELL DISTRIBUTION WIDTH 18.1 % (11.5-14.0); SEGMENTED NEUTROPHILS % (AUTO) 90.1 % (42-78); TOTAL CELLS COUNTED % (AUTO) 100 %; WHITE BLOOD COUNT 3.7 10^3/uL (4.0-10.5)
[2019-07-23 14:00] LABS: PLATELET COUNT 180 10^3/uL (150-450)
[2019-07-23] MEDS ORDERED: PREDNISONE 20 MG TABLET PO ONE (14:11)
--- NOTE | 2019-07-23 22:40 | EKG REPORT ---
SEVERITY:- ABNORMAL ECG - SINUS RHYTHM PROBABLE INFERIOR INFARCT, OLD : Confirmed by: Renee Gill 23-Jul-2019 22:39:46
== END 2019-07-23 14:19 | disposition home or self-care (01) ==
LOC: ER 09:17
DX: J44.1 Chronic obstructive pulmonary disease with (acute) exacerbation (principal); E87.1 Hypo-osmolality and hyponatremia; T50.906A Underdosing of unspecified drugs, medicaments and biological substances, initial encounter; Z91.128 Patient's intentional underdosing of medication regimen for other reason; Z91.14 Patient's other noncompliance with medication regimen; M62.82 Rhabdomyolysis; R06.02 Shortness of breath; R05 Cough; I25.10 Atherosclerotic heart disease of native coronary artery without angina pectoris; I10 Essential (primary) hypertension; F17.210 Nicotine dependence, cigarettes, uncomplicated; Z87.01 Personal history of pneumonia (recurrent); Z79.899 Other long term (current) drug therapy; Z95.5 Presence of coronary angioplasty implant and graft
CPT/HCPCS: 93005; 94640 ×2; 99291; 96360; 36415; 87040; 87070; 87205; 82550; 83735; 85025; 80053; 84484; 71045; 93010; A9270 ×3; J7030; J7512; J7620

== ENCOUNTER 2019-10-01 11:03 | Day surgery (SDC) | payer MEDICARE, MEDICAID ==
[~2019-10-01 11:03] MED LIST changes: -ACETAMINOPHEN 325 MG TABLET PO PRN; -CEFAZOLIN 2 GM/D5W RTU 2 GM/50 ML RTUPB IV ONE; -CEFAZOLIN 2 GM/D5W RTU 2 GM/50 ML RTUPB IV PRN; +CHONDR SU A NA/HYALUR INTRAOC KIT (SURGICARE) ONE; +EPINEPHRINE INJ/PF 1 MG/1 ML AMPULE ONE; +KETOROLAC TROMETHAMINE 0.45% 4 DROP/0.4 ML DROPERETTE OS PRN; -LACTATED RINGERS 1000 ML IV PRN; +LIDOCAINE 1%/PHENYLEPHRINE 1.5% 1 ML VIAL ONE; +TRYPAN BLUE 0.06 % OPH SOLN 0.5 ML DISP.SYRIN ONE
[2019-10-01] MEDS: TETRACAINE HCL 0.5% OPH SOLN 4 ML OS PRN ×3 (11:54→12:26)
[2019-10-01] MEDS: BESIFLOXACIN HCL 0.6% OPH SUSP 5 ML BOTTLE OS PRN ×4 (11:56→12:47)
[2019-10-01] MEDS: CYCLOPENTOLATE 0.2%/PHENYLEPHRINE 1% OPH SOLN 2 ML OS PRN ×3 (11:56→12:19)
[2019-10-01] MEDS: TROPICAMIDE 1% OPH SOLN 15 ML OS PRN ×3 (11:56→12:19)
[2019-10-01] MEDS ORDERED: MIDAZOLAM 2 MG/2 ML INJ ONE (12:01)
[2019-10-01] MEDS ORDERED: FENTANYL CITRATE INJ/PF 100 MCG/2 ML AMPUL ONE (12:01)
[2019-10-01] MEDS: DORZOLAMIDE HCL 2%/TIMOLOL MALEAT 0.5% OPH SOLN 10 ML OS PRN ×2 (12:42→12:47)
--- NOTE | 2019-10-02 07:33 | Operative Report ---
Operative Report-[facility] Operative Report: DATE OF SURGERY: 10/01/2019 PREOPERATIVE DIAGNOSIS: Cataracts, left eye POSTOPERATIVE DIAGNOSIS: Cataract, left eye OPERATION: Cataract extraction with insertion of an IOL of the left eye. Intraocular Lens Model: [22.5 sn60wf] The patient underwent surgery because they are having difficulty seeing television SURGEON: Ross Byrd MD ANESTHESIA: Topical PROCEDURE: After obtaining appropriate consent, the patient's left eye was prepped and draped in a sterile fashion as well as the surgeon in the sterile manner and cataract surgery was started. First a paracentesis blade was used to make a side-port incision. Viscoelastic was used to inflate the anterior chamber. Next a 2.4 mm incision was made with a 2.4 mm blade, clear corneal temporarily. A continuous capsulorrhexis was made using a cystotome and Utrata forceps. Following this hydrodissection was carried out to make the lens fully loose and mobile and it was rotated 90 degrees. Following this, a divide and conquer technique was used to phacoemulsify the lens. The remaining cortex was removed with an irrigation/aspiration. Provisc was instilled into the capsular bag to inflate the bag.The intraocular lens was placed. The remaining viscoelastic material was removed with irrigation/aspiration. Following this, the incision was found to be watertight. Besivance and Cosopt was instilled into the eye and a protective shield was placed over the eye. The patient was returned to the postoperative recovery in a stable condition.
== END 2019-10-01 13:39 | disposition home or self-care (01) ==
LOC: SC 11:03
PROVIDERS: ATTEND Internal Medicine
DX: H25.89 Other age-related cataract (principal); H57.03 Miosis; H11.042 Peripheral pterygium, stationary, left eye; H01.00A Unspecified blepharitis right eye, upper and lower eyelids; H01.00B Unspecified blepharitis left eye, upper and lower eyelids; I11.9 Hypertensive heart disease without heart failure; E78.00 Pure hypercholesterolemia, unspecified; J44.9 Chronic obstructive pulmonary disease, unspecified; F17.210 Nicotine dependence, cigarettes, uncomplicated; Z79.899 Other long term (current) drug therapy; Z79.51 Long term (current) use of inhaled steroids; Z79.02 Long term (current) use of antithrombotics/antiplatelets; I25.2 Old myocardial infarction; E07.9 Disorder of thyroid, unspecified; Z99.81 Dependence on supplemental oxygen
CPT/HCPCS: 66984; 00142; V2632; J2250; J3490 ×2; A9270; J0171; J3010; J2370; 142

== ENCOUNTER 2019-10-22 09:24 | Day surgery (SDC) | payer MEDICARE, MEDICAID ==
[~2019-10-22 09:24] MED LIST changes: +KETOROLAC TROMETHAMINE 0.45% 4 DROP/0.4 ML DROPERETTE OD PRN; -KETOROLAC TROMETHAMINE 0.45% 4 DROP/0.4 ML DROPERETTE OS PRN; -TRYPAN BLUE 0.06 % OPH SOLN 0.5 ML DISP.SYRIN ONE
[2019-10-22] MEDS: BESIFLOXACIN HCL 0.6% OPH SUSP 5 ML BOTTLE OD PRN ×4 (10:03→11:00)
[2019-10-22] MEDS: TROPICAMIDE 1% OPH SOLN 15 ML OD PRN ×3 (10:03→10:23)
[2019-10-22] MEDS: CYCLOPENTOLATE 0.2%/PHENYLEPHRINE 1% OPH SOLN 2 ML OD PRN ×3 (10:03→10:23)
[2019-10-22] MEDS: TETRACAINE HCL 0.5% OPH SOLN 4 ML OD PRN ×3 (10:04→10:36)
[2019-10-22] MEDS ORDERED: MIDAZOLAM 2 MG/2 ML INJ ONE (10:15)
[2019-10-22] MEDS ORDERED: FENTANYL CITRATE INJ/PF 100 MCG/2 ML AMPUL ONE (10:16)
[2019-10-22] MEDS: DORZOLAMIDE HCL 2%/TIMOLOL MALEAT 0.5% OPH SOLN 10 ML OD PRN ×2 (11:00)
--- NOTE | 2019-10-23 07:39 | Operative Report ---
Operative Report-[facility] Operative Report: DATE OF SURGERY: 10/22/2019 PREOPERATIVE DIAGNOSIS: Cataract, right eye POSTOPERATIVE DIAGNOSIS: Cataract, right eye OPERATION: Cataract extraction with insertion of an IOL of the right eye. Intraocular Lens Model: [23.5 sn60wf] Patient was having difficulty seeing road signs and small print SURGEON: Ross Byrd MD ANESTHESIA: Topical PROCEDURE: After obtaining appropriate consent, the patient's right eye was prepped and draped in a sterile fashion as well as the surgeon in the sterile manner and cataract surgery was started. First a paracentesis blade was used to make a side-port incision. Viscoelastic was used to inflate the anterior chamber. Next a 2.4 mm incision was made with a 2.4 mm blade, clear corneal temporarily. A continuous capsulorrhexis was made using a cystotome and Utrata forceps. Following this hydrodissection was carried out to make the cynthia fully loose and mobile and it was rotated. Following this, a divide and conquer technique was used to phacoemulsify the cynthia. The remaining cortex was removed with an irrigation/aspiration. Provisc was instilled into the capsular bag to inflate the bag. The intraocular lens was placed. The remaining viscoelastic material was removed with irrigation/aspiration. Following this, the incision was found to be watertight. Besivance and Cosopt was instilled into the eye and a protective shield was placed over the eye. The patient was reurned to the postoperative recovery in a stable condition.
== END 2019-10-22 11:50 | disposition home or self-care (01) ==
LOC: SC 09:24
PROVIDERS: ATTEND Internal Medicine
DX: H25.89 Other age-related cataract (principal); Z96.1 Presence of intraocular lens; J44.9 Chronic obstructive pulmonary disease, unspecified; Z79.51 Long term (current) use of inhaled steroids; I10 Essential (primary) hypertension; Z79.899 Other long term (current) drug therapy; E07.9 Disorder of thyroid, unspecified; F17.210 Nicotine dependence, cigarettes, uncomplicated
CPT/HCPCS: 66984; V2632; J2250; J3490 ×2; A9270; J0171; J2370; J3010

== ENCOUNTER → 2020-01-21 | Outpatient (CLI) | payer MEDICARE, MEDICAID ==
--- NOTE | 2020-01-21 10:47 | RADIOLOGY REPORT (SQ) ---
EXAM DESCRIPTION: CT LUNG CANCER SCREENING IMAGES COMPLETED DATE/TIME: 01/21/2020 9:52 am REASON FOR STUDY: (Z87.891)PERSONAL HISTORY OF NICOTINE DEPENDENCE Z87.891 PERSONAL HISTORY OF CAROL LAURA DEPENDENCE Has the patient had a Chest CT scan within the past year? N Was the patient offered tobacco cessation counseling? Y Was the patient engaged in shared decision making for this test? Y Does the patient have signs or symptoms of Lung Cancer? N Is the patient a smoker? Y How many pack years? 50Y How many years since quitting smoking? 0 Patients age: 64Y COMPARISON: 11/02/2018 TECHNIQUE: Low Dose CT scan performed of the chest without intravenous contrast for purposes of scre ening for lung cancer. Images reviewed with lung, soft tissue and bone windows. Reconstructed coron al and sagittal MPR images reviewed. All images stored on PACS. All CT scanners at this facility use dose modulation, iterative reconstruction, and/or weight based d osing when appropriate to reduce radiation dose to as low as reasonably achievable (ALARA). [facility]: Dose Right [facility]: CareDose [facility]: Dose Right [facility]: Teradose 4D [facility]: Smart Team My Mobile RADIATION DOSE: CT Rad equipment meets quality standard of care and radiation dose reduction techniq ues were employed. CTDIvol: 2.0 mGy. DLP: 73 mGy-cm. mGy. . LIMITATIONS: No technical limitations. FINDINGS: LUNG NODULES: Right upper lobe subcentimeter calcified granulomas. 5 mm pleural-based pa rt solid nodule right upper lobe image 58 of series 3. REMAINING LUNGS AND PLEURA: No pleural effusions or calcifications. No pneumothorax. Hyperinfla tion. Moderate emphysema Bandlike scarring or atelectasis right lower lobe. HILAR AND MEDIASTINAL STRUCTURES: No identified masses. No abnormal nodes. HEART AND VASCULAR STRUCTURES: No aortic aneurysm. No pericardial effusion. No cardiac devices. CORONARY ARTERY CALCIFICATIONS: Marked calcifications. UPPER ABDOMEN: No significant findings. THYROID AND OTHER SOFT TISSUES: No masses. No adenopathy. BONES: Kyphosis. Chronic compression fractures. OTHER: No other significant findings. IMPRESSION: BENIGN FINDINGS IN THE LUNGS. OTHER FINDINGS ABOVE. LUNGRADS: LUNGRADS: 2 BENIGN APPEARANCE OR BEHAVIOR. NODULES WITH A VERY LOW LIKELIHOOD OF BECOMIN G A CLINICALLY ACTIVE CANCER DUE TO SIZE OR LACK OF GROWTH. MODIFIER: NONE. RECOMMENDATION: Continue annual screening with LDCT in 12 months. COMMENT: CRITERIA: Solid nodule(s): < 6 mm; new < 4 mm. Part solid nodule(s): < 6 mm total diameter on baseline screening. Non solid nodule(s) (GGN): < 20 mm OR ? 20 and unchanged or slowly growing. Category 3 or 4 nodules unchanged for ? 3 months. TECHNICAL DOCUMENTATION: JOB ID: [id number] Quality ID # [id number]: Final reports with documentation of one or more dose reduction techniques (e.g., Au tomated exposure control, adjustment of the mA and/or kV according to patient size, use of iterative reconstruction technique) 2010 [facility] Reading location - IP/workstation name: [email or web address]
== END ==
LOC: RAD 09:14
PROVIDERS: ATTEND Registered Nurse
DX: Z12.2 Encounter for screening for malignant neoplasm of respiratory organs (principal); Z87.891 Personal history of nicotine dependence; I25.10 Atherosclerotic heart disease of native coronary artery without angina pectoris
CPT/HCPCS: G0297